=== PATIENT | female | born 1990 | race African-American/Black ===

== ENCOUNTER 2018-03-13 18:45 | Emergency (ER) | payer OTHER ==
[~2018-03-13] VITALS: Ht 167.6 cm; Wt 13.1 kg
[2018-03-13] MEDS ORDERED: BAYE1TAB5 PO (18:55)
[2018-03-13 21:13] VITALS: BP 141/93
[2018-03-13] MEDS ORDERED: ASPIRIN 81 MG CHEW TABLET PO ONE (21:15)
[2018-03-13] MEDS ORDERED: GI COCKTAIL 50ML BTL(HYOSCYAMINE/MAALOX/LIDOCAINE VISCOUS)(1:3:1) PO ONE (21:15)
[2018-03-13 21:23] LABS: BASO # 0.1 10^3/uL (0.0-0.2); BASO % 0.5 % (0.0-1.0); EOS # 0.3 10^3/uL (0.0-0.50); HEMATOCRIT 38.8 % (36.0-47.0); HEMOGLOBIN 12.8 g/dl (12.0-15.5); LYMPH # 3.3 10^3/uL (1.5-4.5); MEAN CORPUSCULAR VOLUME 87.8 fl (80.0-96.0); MONO # 0.7 10^3/uL (0.0-0.8); MONO % 5.5 % (0.0-5.0); NEUTROPHILS # 8.3 10^3/uL (1.8-7.7); NEUTROPHILS % 65.5 % (36.0-66.0); PLATELET COUNT, AUTOMATED 316 10^3/uL (150-450); RED BLOOD COUNT 4.42 10^6/uL (4.00-5.40); WHITE BLOOD COUNT 12.8 10^3/uL (4.0-10.0)
[2018-03-13 21:48] LABS: BLOOD UREA NITROGEN 18 MG/DL (7-18); CALCIUM LEVEL 8.7 MG/DL (8.5-10.1); CARBON DIOXIDE LEVEL 25 MEQ/L (21-32); CHLORIDE LEVEL 105 MEQ/L (98-107); CPK CREATINE PHOSPHOKINASE 121 U/L (26-192); CREATININE FOR GFR 0.82 MG/DL (0.55-1.30); GLOMERULAR FILTRATION RATE > 60.0 (>60); GLUCOSE, FASTING 87 MG/DL (70-100); MB/CK RELATIVE INDEX 1.16 (< OR =4); SODIUM LEVEL 137 MEQ/L (136-145); TROPONIN I < 0.02 NG/ML (< 0.10)
--- NOTE | 2018-03-14 09:17 | REP ---
Clinical: Acute chest pain . Comparison: None . Technique: PA and lateral. Findings: The mediastinum and cardiac silhouette are normal. The lung lau are clear and without acute consolidation, effusion, or pneumothorax. The skeletal structures are intact and normal. Impression: 1. No acute cardiopulmonary process. Electronically Signed by Herminio Salvador MD 03/14/2018 09:07 A
--- NOTE | 2018-03-14 09:30 | ECGEPIP ---
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
== END 2018-03-13 22:37 | disposition home or self-care (01) ==
LOC: M ED 18:45
DX: R07.89 Other chest pain (principal)

== ENCOUNTER 2018-07-17 18:36 | Emergency (ER) | payer OTHER ==
[~2018-07-17] VITALS: Ht 170.2 cm; Wt 139.6 kg
[~2018-07-17 18:36] MED LIST: BAYE1TAB5 PO
[2018-07-17 19:25] LABS: BASO # 0.1 10^3/uL (0.0-0.2); BASO % 0.6 % (0.0-1.0); EOS # 0.2 10^3/uL (0.0-0.50); EOS % 1.6 % (0.0-3.0); HEMATOCRIT 41.5 % (36.0-47.0); HEMOGLOBIN 13.8 g/dl (12.0-15.5); LYMPH # 2.3 10^3/uL (1.5-4.5); LYMPH % 21.2 % (24.0-44.0); MEAN CORPUSCULAR HEMOGLOBIN 29.1 pg (27.0-33.0); MEAN CORPUSCULAR HGB CONC 33.3 g/dl (32.0-36.5); MEAN CORPUSCULAR VOLUME 87.6 fl (80.0-96.0); MONO # 0.6 10^3/uL (0.0-0.8); MONO % 5.4 % (0.0-5.0); NEUTROPHILS # 7.7 10^3/uL (1.8-7.7); NEUTROPHILS % 70.8 % (36.0-66.0); PLATELET COUNT, AUTOMATED 326 10^3/uL (150-450); RED BLOOD COUNT 4.74 10^6/uL (4.00-5.40); WHITE BLOOD COUNT 10.9 10^3/uL (4.0-10.0)
--- NOTE | 2018-07-17 19:45 | REP ---
Clinical: Right lower extremity pain and swelling . Technique: Barakat scale and color Doppler evaluation using linear high frequency transducer. Findings: Ultrasound examination of the right lower extremity deep venous structures from the common femoral vein to the popliteal vein demonstrates normal compressibility flow and wave patterns in response to respiration and augmentation. There is no evidence for deep venous thrombosis. Impression: No evidence for deep venous thrombosis. Electronically Signed by Herminio Salvador MD 07/17/2018 07:36 P
[2018-07-17 19:49] LABS: BLOOD UREA NITROGEN 9 MG/DL (7-18); CALCIUM LEVEL 9.2 MG/DL (8.5-10.1); CARBON DIOXIDE LEVEL 27 MEQ/L (21-32); CHLORIDE LEVEL 106 MEQ/L (98-107); GLOMERULAR FILTRATION RATE > 60.0 (>60); GLUCOSE, FASTING 79 MG/DL (70-100); POTASSIUM SERUM 4.1 MEQ/L (3.5-5.1); SODIUM LEVEL 141 MEQ/L (136-145)
[2018-07-17] MEDS ORDERED: ISOVUE-370 76% 100ML VIAL (Q9967) As Ordered ONE (20:01)
[2018-07-17] MEDS ORDERED: NS 1,000 ML IV ONE (20:15)
--- NOTE | 2018-07-17 20:51 | REP ---
Clinical: Acute shortness of breath and elevated D-dimer levels. Technique: Axial contrast enhanced images from the thoracic inlet to the upper abdomen using 100 ml Isovue 370 intravenous contrast material with coronal and sagittal re-formations. Findings: Satisfactory enhancement of the pulmonary vasculature is achieved and no filling defects are identified to suggest pulmonary embolus. Thoracic aorta is normal caliber without aneurysm or dissection. Heart and pericardium are normal. Bilateral lung lau are well aerated and clear without acute pulmonary parenchymal consolidation or atelectasis. No nodule or mass lesion. No pleural effusion/reaction. No pneumothorax. No adenopathy. Impression: No evidence for pulmonary embolus. No acute pleuroparenchymal or mediastinal process. Electronically Signed by Herminio Salvador MD 07/17/2018 08:42 P
[2018-07-17 21:16] VITALS: BP 137/82
== END 2018-07-17 21:20 | disposition home or self-care (01) ==
LOC: M ED 18:36
DX: M79.661 Pain in right lower leg (principal); M79.89 Other specified soft tissue disorders; I10 Essential (primary) hypertension; R01.1 Cardiac murmur, unspecified; Z82.49 Family history of ischemic heart disease and other diseases of the circulatory system
CPT/HCPCS: 36415; 71275; 80048; 85025; 85379; 93971; 96360; 99284; Q9967

== ENCOUNTER 2019-06-16 13:50 | Emergency (ER) | payer OTHER ==
[~2019-06-16] VITALS: Ht 170.2 cm; Wt 132.9 kg
[~2019-06-16 13:50] MED LIST changes: +PENI500T PO
[2019-06-16 15:05] VITALS: BP 141/87
--- NOTE | 2019-06-16 15:49 | REP ---
CHEST, TWO VIEWS: There is no evidence of acute infiltrate. No pleural effusion is seen. The heart is normal in size. The mediastinal silhouette is unremarkable. The visualized osseous structures are intact. IMPRESSION: No acute pulmonary disease. Electronically Signed by Milton Barakat MD 06/16/2019 07:04 P
== END 2019-06-16 15:06 | disposition home or self-care (01) ==
LOC: M ED 13:50
DX: T52.4X1A Toxic effect of ketones, accidental (unintentional), initial encounter (principal); T45.91XA Poisoning by unspecified primarily systemic and hematological agent, accidental (unintentional), initial encounter; R06.02 Shortness of breath; R11.0 Nausea; R42 Dizziness and giddiness; R51 Headache; Y92.090 Kitchen in other non-institutional residence as the place of occurrence of the external cause; Y93.G1 Activity, food preparation and clean up; Y99.8 Other external cause status

== ENCOUNTER 2019-07-13 05:01 | Emergency (ER) | payer OTHER ==
[~2019-07-13] VITALS: Ht 167.6 cm; Wt 118.2 kg
[2019-07-13 05:52] LABS: BASO # 0.1 10^3/uL (0.0-0.2); BASO % 0.4 % (0.0-1.0); EOS # 0.1 10^3/uL (0.0-0.5); EOS % 1.2 % (0.0-3.0); HEMOGLOBIN 12.9 g/dl (12.0-15.5); LYMPH # 2.7 10^3/uL (1.5-5.0); LYMPH % 23.9 % (24.0-44.0); MEAN CORPUSCULAR HEMOGLOBIN 28.8 pg (27.0-33.0); MEAN CORPUSCULAR HGB CONC 33.1 g/dl (32.0-36.5); MEAN CORPUSCULAR VOLUME 87.1 fl (80.0-96.0); MONO # 0.8 10^3/uL (0.0-0.8); MONO % 6.7 % (0.0-5.0); NEUTROPHILS # 7.7 10^3/uL (1.5-8.5); NEUTROPHILS % 67.5 % (36.0-66.0); PLATELET COUNT, AUTOMATED 307 10^3/uL (150-450); RED BLOOD COUNT 4.48 10^6/uL (4.00-5.40); WHITE BLOOD COUNT 11.4 10^3/uL (4.0-10.0)
[2019-07-13 06:09] LABS: ALBUMIN 3.5 GM/DL (3.2-5.2); ALT/SGPT 17 U/L (12-78); BILIRUBIN,DIRECT 0.1 MG/DL (0.0-0.2); BILIRUBIN,TOTAL 0.5 MG/DL (0.2-1.0); BLOOD UREA NITROGEN 10 MG/DL (7-18); CALCIUM LEVEL 8.8 MG/DL (8.5-10.1); CARBON DIOXIDE LEVEL 28 MEQ/L (21-32); CHLORIDE LEVEL 106 MEQ/L (98-107); CK-MB VALUE MASS < 1.0 NG/ML (<3.6); CPK CREATINE PHOSPHOKINASE 88 U/L (26-192); CREATININE FOR GFR 0.79 MG/DL (0.55-1.30); GLOMERULAR FILTRATION RATE > 60.0 (>60); GLUCOSE, FASTING 87 MG/DL (70-100); MB/CK RELATIVE INDEX 1.14 (< OR =4); NT-PRO BNP 21 PG/ML (<125); POTASSIUM SERUM 3.7 MEQ/L (3.5-5.1); SODIUM LEVEL 140 MEQ/L (136-145); TOTAL PROTEIN 7.3 GM/DL (6.4-8.2); TROPONIN I < 0.02 NG/ML (< 0.10)
[2019-07-13 06:37] LABS: HCG, SERUM QUALITATIVE NEGATIVE (NEGATIVE)
--- NOTE | 2019-07-13 06:48 | REP ---
Clinical: Cough and dyspnea . Comparison: 06/16/2019 . Technique: PA and lateral. Findings: The mediastinum and cardiac silhouette are normal. The lung lau are clear and without acute consolidation, effusion, or pneumothorax. The skeletal structures are intact and normal. Impression: 1. No acute cardiopulmonary process. Electronically Signed by Herminio Salvador MD 07/13/2019 06:39 A
[2019-07-13] MEDS ORDERED: NS 1,000 ML IV ONE (07:00)
[2019-07-13] MEDS ORDERED: ISOVUE-370 76% 100ML VIAL As Ordered ONE (07:04)
[2019-07-13] MEDS ORDERED: FAMOTIDINE 20 MG TAB PO ONE (07:30)
--- NOTE | 2019-07-13 07:42 | REPVR ---
PROCEDURE INFORMATION: Exam: CT Angiography Chest With Contrast Exam date and time: 07/13/2019 6:58 AM Age: 29 years old Clinical indication: Chest pain; Type not specified; Additional info: SOB, elevated d-dimer TECHNIQUE: Imaging protocol: Computed tomographic angiography of the chest with intravenous contrast. 3D rendering: MIP and/or 3D reconstructed images were created by the technologist. Radiation optimization: All CT scans at this facility use at least one of these dose optimization techniques: automated exposure control; mA and/or kV adjustment per patient size (includes targeted exams where dose is matched to clinical indication); or iterative reconstruction. Contrast material: ISO; Contrast volume: 75 ml; Contrast route: AC; COMPARISON: CT ANGIO CHEST 07/17/2018 8:21 PM FINDINGS: Pulmonary arteries: No visualized acute pulmonary embolus for the level of images acquired. Aorta: Limitation with likely motion artifact at the margin of ascending thoracic aorta. Lungs: Slight or vague ground-glass appearance of the lungs bilaterally with rather diffuse non rounded involvement. Pleural space: No pleural effusion. Heart: Right to left ventricular ratio 0.9. Lymph nodes: Unremarkable. No enlarged lymph nodes. Bones/joints: Unremarkable. No acute fracture. Soft tissues: Unremarkable. Other findings: Limitation secondary to patient body habitus. IMPRESSION: 1. No visualized pulmonary embolus for the level of images acquired. 2. Rather diffuse partial ground-glass appearance of pulmonary parenchyma is similar to 2019. Electronically signed by: Ashia Guajardo On 07/13/2019 07:42:02 AM
[2019-07-13] MEDS ORDERED: VENTAER INH (07:47)
[2019-07-13 07:56] VITALS: BP 137/95
--- NOTE | 2019-07-13 08:13 | ECGEPIP ---
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
== END 2019-07-13 08:04 | disposition home or self-care (01) ==
LOC: M ED 05:01 → EDBD 05:01 → M ED 08:04
DX: R06.00 Dyspnea, unspecified (principal); R91.8 Other nonspecific abnormal finding of lung field
CPT/HCPCS: 36415; 71046; 71275; 80048; 80076; 82550; 82553; 83880; 84443; 84484; 84703; 85025; 85379; 93005; 93041; 94760; 96360; 99285; Q9967

== ENCOUNTER → 2019-08-05 | Outpatient (CLI) | payer OTHER ==
[~2019-08-05] MED LIST changes: +VENTAER INH
--- NOTE | 2019-08-11 13:00 | SLEEPCENT ---
DATE OF STUDY: 08/05/2019 ORDERED BY: Dr. Jo Nocturnal polysomnography was performed for evaluation of sleep physiology in this patient with a history of excessive somnolence and nonrestorative sleep. 7 hours and 22 minutes of data were reviewed. There were 396 minutes of sleep identified. Sleep latency was normal at 6 minutes. REM latency was prolonged at 120 minutes. Sleep architecture was fairly good. There were 3 REM cycles noted. Overall sleep efficiency was 91.6%. The patient's electrocardiogram showed a sinus rhythm with an average heart rate of 70 beats per minute. Electroencephalogram (EEG) showed fairly normal waveforms for awake and sleep. There was some EKG bleed through. No focal events were identified. There were 66 respiratory events identified of 10 seconds in duration or greater for an apnea-hypopnea index of 10. The events were primarily obstructive, not exclusive to sleep stage nor body posture. Arousals from respiratory events occurred 5.2 times per hour. No oxygen desaturations below 90% were appreciated. Limb activity was minimal. Limb movement arousal index was 3. IMPRESSION: Obstructive sleep apnea syndrome (G47.33). Apnea-hypopnea index of 10. RECOMMENDATION: The patient should be encouraged to return to the sleep disorder center for pressure therapy. In the interim, alcohol and sedative avoidance should be practiced and caution exercised during the operation of motor vehicles.
== END ==
LOC: M SLEEP 20:00
PROVIDERS: ATTEND Internal Medicine Pulmonary Disease
DX: G47.30 Sleep apnea, unspecified (principal)

== ENCOUNTER → 2019-10-08 | Outpatient (CLI) | payer OTHER ==
[~2019-10-08] MED LIST changes: +OMEP40CA97 PO; +ONDA-83; +PANT40TA29; +PEPC40TA12 PO; +SUCR1TAB56
--- NOTE | 2019-10-31 07:24 | SLEEPCENT ---
DATE: 10/08/2019 ORDERED BY: Dr. Jo Nocturnal polysomnography was performed for the titration of pressure therapy in this patient with obstructive sleep apnea syndrome, apnea-hypopnea index of 10. For testing, a ResMed AirFit F20 full-face mask of small size was used. There was 4 cm of water pressure applied to the circuit, and the lights were extinguished. There was 7 hours and 52 minutes of data reviewed. There was 400.5 minutes of sleep identified. Sleep latency was normal at 7.5 minutes. REM latency was mildly delayed at 123 minutes. Sleep architecture was good with four REM cycles. Overall sleep efficiency was 86.7%. The electrocardiogram showed a sinus rhythm with an average heart rate of 60 beats per minute . EEG showed normal waveforms for wake and sleep. Respiratory events were fully palliated with CPAP at a pressure of +12. Remaining measures of sleep physiology were normal. IMPRESSION: Obstructive sleep apnea syndrome (G47.33). RECOMMENDATION: Nightly use of pressure therapy, 12 cm of water. MTDD
== END ==
LOC: M SLEEP 20:00
PROVIDERS: ATTEND Internal Medicine Pulmonary Disease
DX: G47.33 Obstructive sleep apnea (adult) (pediatric) (principal)

== ENCOUNTER 2019-11-14 16:38 | Emergency (ER) | payer OTHER ==
[~2019-11-14] VITALS: Ht 170.2 cm; Wt 129.2 kg
[2019-11-14 16:38] VITALS: BP 149/89
[~2019-11-14 16:38] MED LIST changes: -OMEP40CA97 PO; -ONDA-83; -PANT40TA29; -PEPC40TA12 PO; -SUCR1TAB56
[2019-11-14 17:30] LABS: BASO # 0.1 10^3/uL (0.0-0.2); BASO % 0.5 % (0.0-1.0); EOS # 0.2 10^3/uL (0.0-0.5); EOS % 1.6 % (0.0-3.0); HEMATOCRIT 35.3 % (36.0-47.0); HEMOGLOBIN 11.7 g/dl (12.0-15.5); LYMPH # 2.2 10^3/uL (1.5-5.0); LYMPH % 20.2 % (24.0-44.0); MEAN CORPUSCULAR HEMOGLOBIN 28.9 pg (27.0-33.0); MEAN CORPUSCULAR HGB CONC 33.1 g/dl (32.0-36.5); MEAN CORPUSCULAR VOLUME 87.2 fl (80.0-96.0); MONO # 0.7 10^3/uL (0.0-0.8); MONO % 6.3 % (0.0-5.0); NEUTROPHILS # 7.8 10^3/uL (1.5-8.5); NEUTROPHILS % 70.9 % (36.0-66.0); PLATELET COUNT, AUTOMATED 281 10^3/uL (150-450); RED BLOOD COUNT 4.05 10^6/uL (4.00-5.40)
[2019-11-14 18:01] LABS: BLOOD UREA NITROGEN 9 MG/DL (7-18); CALCIUM LEVEL 9.2 MG/DL (8.5-10.1); CARBON DIOXIDE LEVEL 27 MEQ/L (21-32); CHLORIDE LEVEL 107 MEQ/L (98-107); CK-MB VALUE MASS < 1.0 NG/ML (<3.6); CPK CREATINE PHOSPHOKINASE 85 U/L (26-192); FREE THYROXINE INDEX 3.1 % (1.3-4.8); GLOMERULAR FILTRATION RATE > 60.0 (>60); GLUCOSE, FASTING 108 MG/DL (70-100); HCG, SERUM QUANTITATIVE < 1.0 MIU/ML; MB/CK RELATIVE INDEX 1.18 (< OR =4); SODIUM LEVEL 137 MEQ/L (136-145); T UPTAKE 37 % (30-39); THYROXINE (T4) 8.4 UG/DL (4.5-12.0); TROPONIN I < 0.02 NG/ML (< 0.10)
--- NOTE | 2019-11-14 18:50 | REPVR ---
PROCEDURE INFORMATION: Exam: XR Chest, 2 Views Exam date and time: 11/14/2019 6:42 PM Age: 29 years old Clinical indication: Chest pain; Additional info: Left sided chest pain TECHNIQUE: Imaging protocol: XR of the chest Views: 2 views. COMPARISON: CR Chest, 2 view PA, Lat 07/13/2019 5:20 AM FINDINGS: Lungs: Degree of inflation of the lungs is normal. No evidence of pulmonary edema. No focal airspace process. No concerning parenchymal lung mass. Pleural space: No pleural effusion or pneumothorax. Heart/Mediastinum: Cardiac silhouette appears normal. No mediastinal adenopathy or hilar mass. Bones/joints: Osseous structures show no acute or concerning abnormality. IMPRESSION: No active or focal cardiopulmonary process. Electronically signed by: Benjamin Sam On 11/14/2019 18:50:06 PM
[2019-11-14] MEDS ORDERED: NS 1,000 ML IV ONE (19:00)
[2019-11-14] MEDS ORDERED: ISOVUE-370 76% 100ML VIAL As Ordered ONE (19:05)
--- NOTE | 2019-11-14 20:00 | REPVR ---
PROCEDURE INFORMATION: Exam: CT Angiography Chest With Contrast Exam date and time: 11/14/2019 7:46 PM Age: 29 years old Clinical indication: Chest pain; Additional info: Left sided chest pain, elevated d-dimer TECHNIQUE: Imaging protocol: Computed tomographic angiography of the chest with intravenous contrast. 3D rendering (Not supervised by radiologist): MIP and/or 3D reconstructed images were created by the technologist. Radiation optimization: All CT scans at this facility use at least one of these dose optimization techniques: automated exposure control; mA and/or kV adjustment per patient size (includes targeted exams where dose is matched to clinical indication); or iterative reconstruction. Contrast material: ISOVUE 370; Contrast volume: 75 ml; Contrast route: INTRAVENOUS (IV); COMPARISON: CT ANGIO CHEST 07/13/2019 7:08 AM FINDINGS: Pulmonary arteries: No focal pulmonary artery filling defect to suggest acute pulmonary embolus. Aorta: No thoracic aortic aneurysm or dissection. Lungs: Pulmonary vascular/interstitial pattern does not suggest active pulmonary edema. No suspicious lung mass or air space process. No central endobronchial lesion. Pleural space: No pleural effusion or pneumothorax. Heart: No overt cardiac enlargement or abnormal volume of pericardial fluid. Mediastinal space: Residual thymic tissue is present in the anterior mediastinum. Lymph nodes: No enlarged mediastinal lymph nodes. Bones/joints: Bony structures show no acute fracture or destructive process. Soft tissues: No asymmetric abnormality of the extrathoracic soft tissues. IMPRESSION: 1. No evidence of acute pulmonary embolus. 2. No other acute or concerning focal intrathoracic abnormality. Electronically signed by: Benjamin Sam On 11/14/2019 20:00:17 PM
--- NOTE | 2019-11-15 09:18 | ECGEPIP ---
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
[2019-12-23] MEDS ORDERED: ONDA-83 (13:33)
[2019-12-23] MEDS ORDERED: OMEP40CA97 PO (13:34)
[2019-12-23] MEDS ORDERED: SUCR1TAB56 (13:34)
[2019-12-23] MEDS ORDERED: PANT40TA29 (13:34)
== END 2019-11-14 19:57 | disposition home or self-care (01) ==
LOC: M ED 16:38
DX: R07.9 Chest pain, unspecified (principal); R79.89 Other specified abnormal findings of blood chemistry; Z53.9 Procedure and treatment not carried out, unspecified reason; Z79.51 Long term (current) use of inhaled steroids
CPT/HCPCS: 36415; 71046; 71275; 80048; 82550; 82553; 84436; 84443; 84479; 84484; 84702; 85025; 85379; 85730; 93005; 99284; Q9967

== ENCOUNTER 2019-12-20 15:09 | Emergency (ER) | payer OTHER ==
[~2019-12-20] VITALS: Ht 170.2 cm; Wt 133.6 kg
[2019-12-20] MEDS ORDERED: PEPC40TA12 PO (15:26)
[2019-12-20 16:12] LABS: BASO # 0.1 10^3/uL (0.0-0.2); BASO % 0.6 % (0.0-1.0); EOS # 0.2 10^3/uL (0.0-0.5); EOS % 1.3 % (0.0-3.0); HEMATOCRIT 38.4 % (36.0-47.0); HEMOGLOBIN 12.3 g/dl (12.0-15.5); LYMPH # 2.1 10^3/uL (1.5-5.0); LYMPH % 18.7 % (24.0-44.0); MEAN CORPUSCULAR HEMOGLOBIN 28.4 pg (27.0-33.0); MEAN CORPUSCULAR VOLUME 88.7 fl (80.0-96.0); MONO # 0.7 10^3/uL (0.0-0.8); MONO % 6.3 % (0.0-5.0); NEUTROPHILS # 8.1 10^3/uL (1.5-8.5); NEUTROPHILS % 72.5 % (36.0-66.0); PLATELET COUNT, AUTOMATED 282 10^3/uL (150-450); RED BLOOD COUNT 4.33 10^6/uL (4.00-5.40); WHITE BLOOD COUNT 11.1 10^3/uL (4.0-10.0)
[2019-12-20 16:59] VITALS: BP 148/79
--- NOTE | 2019-12-23 07:17 | ECGEPIP ---
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
[2019-12-23] MEDS ORDERED: ONDA-83 (13:33)
[2019-12-23] MEDS ORDERED: OMEP40CA97 PO (13:34)
[2019-12-23] MEDS ORDERED: SUCR1TAB56 (13:34)
[2019-12-23] MEDS ORDERED: PANT40TA29 (13:34)
== END 2019-12-20 17:01 | disposition home or self-care (01) ==
LOC: M ED 15:09
DX: R55 Syncope and collapse (principal); K21.9 Gastro-esophageal reflux disease without esophagitis; E66.9 Obesity, unspecified; Z79.899 Other long term (current) drug therapy

== ENCOUNTER 2020-01-16 11:07 | Day surgery (SDC) | payer OTHER ==
[~2020-01-16] VITALS: Ht 170.2 cm; Wt 128.4 kg
[~2020-01-16 11:07] MED LIST changes: +NS 1,000 ML IV ONE; +OMEP40CA97 PO; +ONDA-83; +PANT40TA29; +PEPC40TA12 PO; +SUCR1TAB56; +fentaNYL 100 MCG/2 ML INJECTION (J3010) As Ordered ONE; +propofoL 200 MG/20 ML VIAL As Ordered ONE
[2020-01-16] MEDS ORDERED: LIDOCAINE 2% 100MG/5ML SDV (FOR ANES.) As Ordered ONE (12:09)
--- NOTE | 2020-01-16 12:41 | ROOR ---
Patient Name: Karma Singer Procedure Date: 01/16/2020 12:26 PM Date of : 1990 Age: 29 Room: [facility] Gender: Female Note Status: Finalized Procedure: Upper Endoscopy + Biopsies Indications: Heartburn, Exclusion of Domingo's esophagus Providers: Satish Nielsen MD Referring MD: ALEE VICKERS MD Requesting Provider: Medicines: Monitored Anesthesia Care Complications: No immediate complications. Procedure: Pre-Anesthesia Assessment: - The heart rate, respiratory rate, oxygen saturations, blood pressure, adequacy of pulmonary ventilation, and response to care were monitored throughout the procedure. The Endoscope was introduced through the mouth, and advanced to the second part of duodenum. The upper GI endoscopy was accomplished without difficulty. The patient tolerated the procedure well. Findings: The Z-line was irregular and was found 40 cm from the incisors. Multiple biopsies were obtained with cold forceps for evaluation to rule out Domingo's Esophagus randomly at the gastroesophageal junction. No other significant abnormalities were identified in a careful examination of the stomach. The exam of the duodenum was otherwise normal. Impression: - Z-line irregular, 40 cm from the incisors. - Multiple biopsies were obtained at the gastroesophageal junction. - The examination was otherwise normal. Recommendation: - Patient has a contact number available for emergencies. The signs and symptoms of potential delayed complications were discussed with the patient. Return to normal activities tomorrow. Written discharge instructions were provided to the patient. - High fiber diet. - Discharge patient to home. - Continue present medications. - Follow an antireflux regimen. - Await pathology results. - Telephone GI clinic for pathology results in 1 week. - Return to referring physician. - The findings and recommendations were discussed with the patient. Procedure Code(s): --- Professional --- 46909, Esophagogastroduodenoscopy, flexible, transoral; with biopsy, single or multiple Diagnosis Code(s): --- Professional --- K22.8, Other specified diseases of esophagus R12, Heartburn CPT copyright 2019 [employer]. All rights reserved. The codes documented in this report are preliminary and upon manager council review may be revised to meet current compliance requirements. Satish Nielsen MD Satish Nielsen MD 01/16/2020 12:41:23 PM Electronically signed by Satish Nielsen MD Number of Addenda: 0 Note Initiated On: 01/16/2020 12:26 PM Estimated Blood Loss: Estimated blood loss: none.
[2020-01-16] MEDS ORDERED: propofoL 200 MG/20 ML VIAL As Ordered ONE (12:59)
[2020-01-16 13:06] VITALS: BP 145/92
== END 2020-01-16 13:08 | disposition home or self-care (01) ==
LOC: M OPP 11:07
PROVIDERS: ATTEND Internal Medicine Gastroenterology
DX: K22.8 Other specified diseases of esophagus (principal); R12 Heartburn; K21.9 Gastro-esophageal reflux disease without esophagitis; Z79.899 Other long term (current) drug therapy
CPT/HCPCS: 43239; 88305; J3010

== ENCOUNTER 2020-01-23 16:22 | Emergency (ER) | payer OTHER ==
[~2020-01-23] VITALS: Ht 170.2 cm; Wt 129.0 kg
[~2020-01-23 16:22] MED LIST changes: -NS 1,000 ML IV ONE; -ONDA-83; +ONDA-83 PO; -fentaNYL 100 MCG/2 ML INJECTION (J3010) As Ordered ONE; -propofoL 200 MG/20 ML VIAL As Ordered ONE
[2020-01-23] MEDS ORDERED: diphenhydrAMINE 50MG/ML VIAL (J1200) IV STA (17:42)
[2020-01-23] MEDS ORDERED: METOCLOPRAMIDE INJ 10MG/2ML VIAL (J2765 PER 1) IV ONE (17:45)
[2020-01-23] MEDS ORDERED: NS 1,000 ML IV ONE (17:45)
[2020-01-23] MEDS ORDERED: KETOROLAC 30 MG/ML 1ML VIAL IV ONE (17:45)
[2020-01-23 18:24] LABS: BASO # 0.1 10^3/uL (0.0-0.2); BASO % 0.5 % (0.0-1.0); EOS # 0.1 10^3/uL (0.0-0.5); EOS % 0.6 % (0.0-3.0); HEMATOCRIT 39.3 % (36.0-47.0); HEMOGLOBIN 12.9 g/dl (12.0-15.5); LYMPH # 1.5 10^3/uL (1.5-5.0); MEAN CORPUSCULAR HEMOGLOBIN 28.7 pg (27.0-33.0); MEAN CORPUSCULAR HGB CONC 32.8 g/dl (32.0-36.5); MEAN CORPUSCULAR VOLUME 87.5 fl (80.0-96.0); MONO # 0.7 10^3/uL (0.0-0.8); MONO % 5.2 % (0.0-5.0); NEUTROPHILS # 10.8 10^3/uL (1.5-8.5); NEUTROPHILS % 82.3 % (36.0-66.0); PLATELET COUNT, AUTOMATED 312 10^3/uL (150-450); RED BLOOD COUNT 4.49 10^6/uL (4.00-5.40); WHITE BLOOD COUNT 13.1 10^3/uL (4.0-10.0)
[2020-01-23 18:44] LABS: ALBUMIN 3.8 GM/DL (3.2-5.2); ALT/SGPT 18 U/L (12-78); BILIRUBIN,DIRECT 0.1 MG/DL (0.0-0.2); BILIRUBIN,TOTAL 0.5 MG/DL (0.2-1.0); BLOOD UREA NITROGEN 13 MG/DL (7-18); CALCIUM LEVEL 9.3 MG/DL (8.5-10.1); CARBON DIOXIDE LEVEL 27 MEQ/L (21-32); CHLORIDE LEVEL 105 MEQ/L (98-107); GLOMERULAR FILTRATION RATE > 60.0 (>60); GLUCOSE, FASTING 92 MG/DL (70-100); LIPASE 90 U/L (73-393); MAGNESIUM LEVEL 1.9 MG/DL (1.8-2.4); POTASSIUM SERUM 3.8 MEQ/L (3.5-5.1); SODIUM LEVEL 138 MEQ/L (136-145); TOTAL PROTEIN 7.6 GM/DL (6.4-8.2)
[2020-01-23 18:49] LABS: HCG, SERUM QUALITATIVE NEGATIVE (NEGATIVE)
[2020-01-23 18:56] VITALS: BP 140/96
== END 2020-01-23 19:45 | disposition home or self-care (01) ==
LOC: M ED 16:22
DX: R51.9 Headache, unspecified (principal); D72.829 Elevated white blood cell count, unspecified; R42 Dizziness and giddiness; R11.0 Nausea; J45.909 Unspecified asthma, uncomplicated; K21.9 Gastro-esophageal reflux disease without esophagitis; Z79.51 Long term (current) use of inhaled steroids
CPT/HCPCS: 80048; 80076; 83690; 83735; 84703; 85025; 96361; 96374; 96375; 99284; J1200; J1885; J2765

== ENCOUNTER 2020-01-28 13:49 | Emergency (ER) | payer OTHER ==
[~2020-01-28] VITALS: Ht 170.2 cm; Wt 127.3 kg
[2020-01-28] MEDS ORDERED: SUCR1TAB56 PO (14:22)
--- NOTE | 2020-01-28 15:02 | ECGEPIP ---
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
[2020-01-28 15:07] LABS: BASO # 0.1 10^3/uL (0.0-0.2); BASO % 0.5 % (0.0-1.0); EOS # 0.1 10^3/uL (0.0-0.5); EOS % 0.5 % (0.0-3.0); HEMATOCRIT 39.2 % (36.0-47.0); HEMOGLOBIN 12.6 g/dl (12.0-15.5); LYMPH # 1.4 10^3/uL (1.5-5.0); MEAN CORPUSCULAR HGB CONC 32.1 g/dl (32.0-36.5); MEAN CORPUSCULAR VOLUME 87.1 fl (80.0-96.0); MONO # 0.5 10^3/uL (0.0-0.8); MONO % 5.3 % (0.0-5.0); NEUTROPHILS # 8.1 10^3/uL (1.5-8.5); NEUTROPHILS % 79.3 % (36.0-66.0); PLATELET COUNT, AUTOMATED 344 10^3/uL (150-450); WHITE BLOOD COUNT 10.2 10^3/uL (4.0-10.0)
[2020-01-28] MEDS ORDERED: LORazepam 2 MG TAB PO PRN (15:15)
[2020-01-28 15:31] LABS: HCG, SERUM QUALITATIVE NEGATIVE (NEGATIVE)
[2020-01-28 15:39] LABS: BLOOD UREA NITROGEN 8 MG/DL (7-18); CALCIUM LEVEL 9.1 MG/DL (8.5-10.1); CARBON DIOXIDE LEVEL 27 MEQ/L (21-32); CHLORIDE LEVEL 107 MEQ/L (98-107); CK-MB VALUE MASS < 1.0 NG/ML (<3.6); CPK CREATINE PHOSPHOKINASE 93 U/L (26-192); CREATININE FOR GFR 0.86 MG/DL (0.55-1.30); FREE T4 1.16 NG/DL (0.76-1.46); GLOMERULAR FILTRATION RATE > 60.0 (>60); GLUCOSE, FASTING 87 MG/DL (70-100); LIPASE 73 U/L (73-393); MB/CK RELATIVE INDEX 1.08 (< OR =4); PHOSPHORUS LEVEL 3.1 MG/DL (2.5-4.9); POTASSIUM SERUM 4.1 MEQ/L (3.5-5.1); SODIUM LEVEL 139 MEQ/L (136-145); TROPONIN I < 0.02 NG/ML (< 0.10)
--- NOTE | 2020-01-28 15:55 | REP ---
INDICATION: Pre-syncope episode. COMPARISON: None. TECHNIQUE: CT BRAIN PERFORMED IN THE AXIAL PLANE. CORONAL RECONSTRUCTION IMAGES ARE PERFORMED. FINDINGS: THE VENTRICLES ARE NORMAL IN SIZE AND POSITION. THERE IS NO MIDLINE SHIFT OR MASS EFFECT. BARAKAT-WHITE DIFFERENTIATION IS WELL MAINTAINED. THERE IS NO ACUTE INTRACRANIAL HEMORRHAGE OR EXTRA-AXIAL FLUID COLLECTION. BONE WINDOW EXAMINATION IS UNREMARKABLE. VISUALIZED MASTOID AIR CELLS AND PARANASAL SINUSES ARE CLEAR. IMPRESSION: NEGATIVE NONCONTRAST CT BRAIN. <Electronically signed by Milton Barakat > 01/28/20 [id number]
--- NOTE | 2020-01-28 15:56 | REP ---
INDICATION: Syncope/near-syncope. COMPARISON: 11/14/2019. TECHNIQUE: SINGLE PORTABLE AP VIEW OF THE CHEST WAS PERFORMED. FINDINGS: THERE IS NO ACUTE INFILTRATE OR PULMONARY EDEMA. LUNGS ARE CLEAR. HEART IS NOT SIGNIFICANTLY ENLARGED. MEDIASTINAL SILHOUETTE IS UNREMARKABLE. THE VISUALIZED OSSEOUS STRUCTURES ARE INTACT. IMPRESSION: NO ACUTE PULMONARY DISEASE. <Electronically signed by Milton Barakat > 01/28/20 [id number]
[2020-01-28 17:01] VITALS: BP 169/75
[2020-01-28] MEDS ORDERED: THIAMINE 100 MG TAB PO SCH (21:00)
[2020-01-29] MEDS ORDERED: FOLIC ACID 1 MG TAB PO SCH (09:00)
[2020-01-29] MEDS ORDERED: MULTIVITAMINS/MINERALS THERAP 1 TAB PO SCH (09:00)
== END 2020-01-28 17:03 | disposition home or self-care (01) ==
LOC: M ED 13:49 → EDBD 13:49 → M ED 17:03
DX: G43.109 Migraine with aura, not intractable, without status migrainosus (principal); R55 Syncope and collapse; R01.1 Cardiac murmur, unspecified; K21.9 Gastro-esophageal reflux disease without esophagitis; J45.909 Unspecified asthma, uncomplicated; G47.33 Obstructive sleep apnea (adult) (pediatric); Z79.51 Long term (current) use of inhaled steroids; Z79.899 Other long term (current) drug therapy

== ENCOUNTER 2020-03-13 10:46 | Emergency (ER) | payer OTHER ==
[~2020-03-13] VITALS: Ht 170.2 cm; Wt 127.9 kg
[~2020-03-13 10:46] MED LIST changes: +SUCR1TAB56 PO
[2020-03-13] MEDS ORDERED: PEPC1TAB5 (11:08)
[2020-03-13] MEDS ORDERED: NS 1,000 ML IV ONE (11:45)
--- NOTE | 2020-03-13 11:50 | REP ---
INDICATION: Abdominal Pain. COMPARISON: Comparison chest x-ray January 28, 2020.. TECHNIQUE: Four views. Acute abdominal series includes upright abdomen. FINDINGS: Upright chest radiograph is unremarkable. There is no evidence of infiltrate or free subdiaphragmatic air. Heart size is normal. Pulmonary vasculature is not increased. Pleural angles are sharp. Supine and erect views of the abdomen demonstrate a normal bowel gas pattern. The psoas margins and the flank stripes are intact. There is no evidence of mass, organomegaly, or pathologic calcification. IMPRESSION: Negative acute abdominal series. <Electronically signed by Shan Vo > 03/13/20 [id number]
[2020-03-13 12:11] LABS: BASO # 0.1 10^3/uL (0.0-0.2); BASO % 0.7 % (0.0-1.0); EOS # 0.1 10^3/uL (0.0-0.5); EOS % 0.8 % (0.0-3.0); HEMATOCRIT 40.6 % (36.0-47.0); HEMOGLOBIN 13.3 g/dl (12.0-15.5); LYMPH # 1.6 10^3/uL (1.5-5.0); MEAN CORPUSCULAR HEMOGLOBIN 29.4 pg (27.0-33.0); MEAN CORPUSCULAR HGB CONC 32.8 g/dl (32.0-36.5); MEAN CORPUSCULAR VOLUME 89.6 fl (80.0-96.0); MONO # 0.8 10^3/uL (0.0-0.8); MONO % 6.7 % (0.0-5.0); NEUTROPHILS # 9.7 10^3/uL (1.5-8.5); NEUTROPHILS % 78.5 % (36.0-66.0); PLATELET COUNT, AUTOMATED 279 10^3/uL (150-450); RED BLOOD COUNT 4.53 10^6/uL (4.00-5.40); WHITE BLOOD COUNT 12.3 10^3/uL (4.0-10.0)
[2020-03-13] MEDS: PANTOPRAZOLE 40MG VIAL (C9113 PER 1) IV ONE ×2 (12:15→12:22)
[2020-03-13 12:46] LABS: ALBUMIN 3.8 GM/DL (3.2-5.2); ALT/SGPT 20 U/L (12-78); BILIRUBIN,DIRECT 0.2 MG/DL (0.0-0.2); BILIRUBIN,TOTAL 1.1 MG/DL (0.2-1.0); BLOOD UREA NITROGEN 11 MG/DL (7-18); CALCIUM LEVEL 9.5 MG/DL (8.5-10.1); CARBON DIOXIDE LEVEL 29 MEQ/L (21-32); CHLORIDE LEVEL 105 MEQ/L (98-107); CK-MB VALUE MASS < 1.0 NG/ML (<3.6); CPK CREATINE PHOSPHOKINASE 85 U/L (26-192); CREATININE FOR GFR 0.82 MG/DL (0.55-1.30); GLOMERULAR FILTRATION RATE > 60.0 (>60); GLUCOSE, FASTING 82 MG/DL (70-100); LIPASE 91 U/L (73-393); MB/CK RELATIVE INDEX 1.18 (< OR =4); POTASSIUM SERUM 4.1 MEQ/L (3.5-5.1); SODIUM LEVEL 138 MEQ/L (136-145); TOTAL PROTEIN 7.7 GM/DL (6.4-8.2); TROPONIN I < 0.02 NG/ML (< 0.10)
--- NOTE | 2020-03-13 12:46 | REP ---
INDICATION: epigastric abd pain. COMPARISON: Chest CT November 14, 2019.. TECHNIQUE: Transabdominal right upper quadrant scanning FINDINGS: Scanning through the right upper quadrant of the abdomen demonstrates a normal sized, thin-walled gallbladder without evidence of stone or polyp. Common bile duct is normal measuring 0.4 cm in greatest diameter. No focal liver lesion is seen. Liver size is normal. No pancreatic abnormality is observed. No right renal abnormality is seen. There is no evidence of ascites. The right kidney measures 12.0 x 4.8 x 4.9 cm. IMPRESSION: Negative right upper quadrant sonography. <Electronically signed by Shan Vo > 03/13/20 [id number]
[2020-03-13] MEDS ORDERED: ISOVUE-370 76% 100ML VIAL As Ordered ONE (13:06)
--- NOTE | 2020-03-13 13:45 | REP ---
INDICATION: epigastric pain, bloating, diarrhea. COMPARISON: None. TECHNIQUE: Helical scanning was acquired and 4 mm axial images are re-formatted. Coronal and sagittal MPR images were generated and reviewed. The contrast enhancement dose is 100 mL of intravenous Isovue 370. FINDINGS: Preliminary digital co founder radiograph is unremarkable. The lung bases are clear on axial CT images. The liver and the spleen are normal in size homogeneous in texture. No abnormality is noted in the gallbladder or the pancreas. Normal adrenal glands are noted bilaterally. The kidneys enhance symmetrically and are morphologically intact. Small and large intestinal bowel loops are normal in the upper abdomen. A normal appendix is visible medial to the cecum. No mesenteric mass or adenopathy is seen. No retroperitoneal mass is seen. Pelvic images demonstrate no evidence of uterine or ovarian lesion. No free fluid is seen. Urinary bladder is unremarkable. No bony destructive lesion is seen. The IMPRESSION: Negative CT study abdomen and pelvis. No acute abnormality. <Electronically signed by Shan Vo > 03/13/20 [id number]
--- NOTE | 2020-03-13 13:48 | REP ---
INDICATION: epigastric pain, bloating, diarrhea. COMPARISON: Comparison CT study of the chest November 14, 2019.. TECHNIQUE: Contrast dose: 100 ML of Isovue [address] technique: Helical scanning is acquired and overlapping 1.5 mm and contiguous 3 mm axial images are reformatted. In addition, maximum intensity projection and multiplanar re-formation images are generated in sagittal and coronal imaging projections. FINDINGS: There is good opacification in the pulmonary arterial tree. There is no evidence of vessel cut off or filling defect to suggest pulmonary embolus. Homogeneous opacity is seen in the thoracic aorta. There is no evidence of aneurysm or dissection. Lung window settings demonstrate show no evidence of infiltrate of, mass, or significant pulmonary nodule. No pleural or pericardial effusion is seen. No hilar or mediastinal mass or adenopathy is observed. In the upper abdomen, there is no significant abnormality. IMPRESSION: No CT evidence of pulmonary embolus. Negative CT pulmonary angiogram. <Electronically signed by Shan Vo > 03/13/20 [id number]
[2020-03-13] MEDS ORDERED: GI COCKTAIL 50ML BTL(HYOSCYAMINE/MAALOX/LIDOCAINE VISCOUS)(1:3:1) PO ONE (14:00)
[2020-03-13] MEDS ORDERED: CARA1TAB6 PO (15:04)
[2020-03-13 15:19] VITALS: BP 151/88
--- NOTE | 2020-03-14 14:39 | ECGEPIP ---
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
== END 2020-03-13 15:21 | disposition home or self-care (01) ==
LOC: M ED 10:46
DX: K29.70 Gastritis, unspecified, without bleeding (principal); R10.13 Epigastric pain; K21.9 Gastro-esophageal reflux disease without esophagitis; J45.909 Unspecified asthma, uncomplicated; G47.33 Obstructive sleep apnea (adult) (pediatric); Z79.899 Other long term (current) drug therapy; Z79.51 Long term (current) use of inhaled steroids
CPT/HCPCS: 36415; 71275; 74021; 74177; 76705; 80047; 80048; 80076; 81001; 82550; 82553; 83690; 84484; 84702; 85025; 93005; 99284; Q9967

== ENCOUNTER 2020-04-18 12:22 | Emergency (ER) | payer OTHER ==
[~2020-04-18] VITALS: Ht 170.2 cm; Wt 125.8 kg
[~2020-04-18 12:22] MED LIST changes: +CARA1TAB6 PO; +PEPC1TAB5
--- NOTE | 2020-04-18 15:29 | REP ---
INDICATION: RIGHT LEG PAIN WITH CHEST PAIN, R/O DVT COMPARISON: None. TECHNIQUE: Barakat scale and color Doppler evaluation right lower extremity using linear high frequency transducer. FINDINGS: Ultrasound examination of the right lower extremity deep venous structures from the common femoral vein to the popliteal vein demonstrates normal compressibility flow and wave patterns in response to respiration and augmentation. There is no evidence for deep venous thrombosis. IMPRESSION: No evidence for deep venous thrombosis. <Electronically signed by Herminio Salvador > 04/18/20 [id number]
[2020-04-18 15:44] LABS: BASO # 0.1 10^3/uL (0.0-0.2); BASO % 0.5 % (0.0-1.0); EOS # 0.1 10^3/uL (0.0-0.5); EOS % 0.8 % (0.0-3.0); HEMATOCRIT 41.6 % (36.0-47.0); HEMOGLOBIN 13.5 g/dl (12.0-15.5); LYMPH # 1.7 10^3/uL (1.5-5.0); LYMPH % 14.2 % (24.0-44.0); MEAN CORPUSCULAR HGB CONC 32.5 g/dl (32.0-36.5); MEAN CORPUSCULAR VOLUME 89.5 fl (80.0-96.0); MONO # 0.5 10^3/uL (0.0-0.8); MONO % 4.3 % (2.0-8.0); NEUTROPHILS # 9.4 10^3/uL (1.5-8.5); NEUTROPHILS % 79.9 % (36.0-66.0); PLATELET COUNT, AUTOMATED 323 10^3/uL (150-450); RED BLOOD COUNT 4.65 10^6/uL (4.00-5.40); WHITE BLOOD COUNT 11.7 10^3/uL (4.0-10.0)
--- NOTE | 2020-04-18 15:52 | REP ---
INDICATION: CP SINCE YESTERDAY, HX OF L ATRIAL ENLARGEMENT COMPARISON: 01/28/2020 TECHNIQUE: PA and lateral. FINDINGS: The mediastinum and cardiac silhouette are normal. The lung lau are clear and without acute consolidation, effusion, or pneumothorax. The skeletal structures are intact and normal. IMPRESSION: No acute cardiopulmonary process. <Electronically signed by Herminio Salvador > 04/18/20 1544
[2020-04-18 16:09] LABS: ALBUMIN 3.9 GM/DL (3.2-5.2); ALT/SGPT 24 U/L (12-78); BILIRUBIN,TOTAL 0.4 MG/DL (0.2-1.0); BLOOD UREA NITROGEN 15 MG/DL (7-18); CALCIUM LEVEL 9.3 MG/DL (8.5-10.1); CARBON DIOXIDE LEVEL 25 MEQ/L (21-32); CHLORIDE LEVEL 106 MEQ/L (98-107); CK-MB VALUE MASS < 1.0 NG/ML (<3.6); CPK CREATINE PHOSPHOKINASE 120 U/L (26-192); CREATININE FOR GFR 0.84 MG/DL (0.55-1.30); GLOMERULAR FILTRATION RATE > 60.0 (>60); GLUCOSE, FASTING 85 MG/DL (70-100); MB/CK RELATIVE INDEX 0.83 (< OR =4); POTASSIUM SERUM 4.3 MEQ/L (3.5-5.1); SODIUM LEVEL 137 MEQ/L (136-145); TOTAL PROTEIN 7.7 GM/DL (6.4-8.2); TROPONIN I < 0.02 NG/ML (< 0.10)
[2020-04-18] MEDS ORDERED: ISOVUE-370 76% 100ML VIAL As Ordered ONE (16:12)
--- NOTE | 2020-04-18 16:39 | REP ---
INDICATION: elevated D-Dimer with central/left chest pain COMPARISON: None. TECHNIQUE: Axial contrast enhanced images from the thoracic inlet to the upper abdomen using pulmonary embolus technique with multiplanar re-formations. 75 ml Isovue 370 intravenous contrast material administered without complication. This CT examination was performed using the following dose reduction techniques: Automated exposure control, adjustment of mA and/or kv according to the patient's size, and use of iterative reconstruction technique. FINDINGS: Satisfactory enhancement of the pulmonary vasculature is achieved and no filling defects are identified to suggest pulmonary embolus. Further evaluation of the mediastinum demonstrates normal thoracic aorta, heart and pericardium. The bilateral lung lau are well aerated and clear without consolidation pleural effusion or pneumothorax. Tracheobronchial tree is patent. No nodule or mass lesion is identified. No adenopathy noted. Surrounding musculoskeletal structures intact IMPRESSION: No evidence for pulmonary embolus. No acute mediastinal or pleural parenchymal process. <Electronically signed by Herminio Salvador > 04/18/20 [id number]
--- NOTE | 2020-04-18 17:15 | ECGEPIP ---
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
[2020-04-18 17:25] VITALS: BP 130/100
== END 2020-04-18 17:24 | disposition home or self-care (01) ==
LOC: M ED 12:22
DX: R07.9 Chest pain, unspecified (principal); K21.9 Gastro-esophageal reflux disease without esophagitis; J45.909 Unspecified asthma, uncomplicated; Z79.51 Long term (current) use of inhaled steroids; Z79.899 Other long term (current) drug therapy
CPT/HCPCS: 71046; 71275; 80053; 82550; 82553; 84484; 84702; 85025; 85379; 93005; 93971; 99284; Q9967

== ENCOUNTER 2020-05-17 19:19 | Emergency (ER) | payer OTHER ==
[~2020-05-17] VITALS: Ht 167.6 cm; Wt 122.7 kg
[2020-05-17 21:21] LABS: BASO # 0.1 10^3/uL (0.0-0.2); BASO % 0.5 % (0.0-1.0); EOS # 0.1 10^3/uL (0.0-0.5); HEMATOCRIT 42.2 % (36.0-47.0); HEMOGLOBIN 13.5 g/dl (12.0-15.5); LYMPH # 2.1 10^3/uL (1.5-5.0); LYMPH % 15.5 % (24.0-44.0); MEAN CORPUSCULAR HEMOGLOBIN 28.5 pg (27.0-33.0); MEAN CORPUSCULAR VOLUME 89.2 fl (80.0-96.0); MONO # 0.8 10^3/uL (0.0-0.8); MONO % 5.6 % (2.0-8.0); NEUTROPHILS # 10.5 10^3/uL (1.5-8.5); PLATELET COUNT, AUTOMATED 327 10^3/uL (150-450); RED BLOOD COUNT 4.73 10^6/uL (4.00-5.40); WHITE BLOOD COUNT 13.6 10^3/uL (4.0-10.0)
[2020-05-17 21:48] LABS: BLOOD UREA NITROGEN 10 MG/DL (7-18); CALCIUM LEVEL 9.7 MG/DL (8.5-10.1); CARBON DIOXIDE LEVEL 29 MEQ/L (21-32); CHLORIDE LEVEL 101 MEQ/L (98-107); CK-MB VALUE MASS < 1.0 NG/ML (<3.6); CPK CREATINE PHOSPHOKINASE 115 U/L (26-192); FREE T4 1.13 NG/DL (0.76-1.46); GLOMERULAR FILTRATION RATE > 60.0 (>60); GLUCOSE, FASTING 99 MG/DL (70-100); MAGNESIUM LEVEL 1.8 MG/DL (1.8-2.4); MB/CK RELATIVE INDEX 0.87 (< OR =4); POTASSIUM SERUM 4.1 MEQ/L (3.5-5.1); SODIUM LEVEL 136 MEQ/L (136-145); TROPONIN I < 0.02 NG/ML (< 0.10)
[2020-05-17 22:30] VITALS: BP 133/66
--- NOTE | 2020-05-18 06:45 | ECGEPIP ---
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
== END 2020-05-17 22:59 | disposition home or self-care (01) ==
LOC: M ED 19:19
DX: F41.9 Anxiety disorder, unspecified (principal); R51.9 Headache, unspecified; K21.9 Gastro-esophageal reflux disease without esophagitis; Z79.899 Other long term (current) drug therapy

== ENCOUNTER 2020-09-01 15:09 | Emergency (ER) | payer OTHER ==
[~2020-09-01] VITALS: Ht 170.2 cm; Wt 128.9 kg
[~2020-09-01 15:09] MED LIST changes: +OMEP40CA4 PO; -OMEP40CA97 PO
[2020-09-01 15:10] VITALS: BP 149/92
[2020-09-01] MEDS ORDERED: PROT1TAB2 (15:15)
== END 2020-09-01 18:39 | disposition left against medical advice (07) ==
LOC: M ED 15:09
DX: Z53.21 Procedure and treatment not carried out due to patient leaving prior to being seen by health care provider (principal)

== ENCOUNTER 2020-09-03 12:39 | Emergency (ER) | payer OTHER ==
[~2020-09-03] VITALS: Ht 170.2 cm; Wt 128.2 kg
[~2020-09-03 12:39] MED LIST changes: +PROT1TAB2
[2020-09-03] MEDS ORDERED: ACET-907 PO (12:45)
[2020-09-03 13:21] LABS: BASO # 0.1 10^3/uL (0.0-0.2); BASO % 0.5 % (0.0-1.0); EOS # 0.1 10^3/uL (0.0-0.5); EOS % 0.8 % (0.0-3.0); HEMATOCRIT 42.5 % (36.0-47.0); LYMPH # 1.3 10^3/uL (1.5-5.0); LYMPH % 11.2 % (24.0-44.0); MEAN CORPUSCULAR HEMOGLOBIN 29.4 pg (27.0-33.0); MEAN CORPUSCULAR HGB CONC 32.9 g/dl (32.0-36.5); MEAN CORPUSCULAR VOLUME 89.3 fl (80.0-96.0); MONO # 0.6 10^3/uL (0.0-0.8); MONO % 5.1 % (2.0-8.0); NEUTROPHILS # 9.4 10^3/uL (1.5-8.5); PLATELET COUNT, AUTOMATED 281 10^3/uL (150-450); RED BLOOD COUNT 4.76 10^6/uL (4.00-5.40); WHITE BLOOD COUNT 11.5 10^3/uL (4.0-10.0)
[2020-09-03 13:44] LABS: HCG, SERUM QUALITATIVE NEGATIVE (NEGATIVE)
[2020-09-03 13:45] LABS: ALBUMIN 3.7 GM/DL (3.2-5.2); ALT/SGPT 24 U/L (12-78); BILIRUBIN,DIRECT 0.2 MG/DL (0.0-0.2); BILIRUBIN,TOTAL 0.7 MG/DL (0.2-1.0); TOTAL PROTEIN 7.6 GM/DL (6.4-8.2)
[2020-09-03 15:03] LABS: APPEARANCE, URINE HAZY (CLEAR); BACTERIA, URINE AUTO NEGATIVE (NEGATIVE); BILIRUBIN, URINE AUTO NEGATIVE (NEGATIVE); BLOOD, URINE BLOOD 3+ (NEGATIVE); COLOR, URINE YELLOW (YELLOW); GLUCOSE, URINE (UA) AUTO NEGATIVE (NEGATIVE); KETONE, URINE AUTO NEGATIVE (NEGATIVE); LEUKOCYTE ESTERASE, URINE AUTO NEGATIVE (NEGATIVE); MUCUS, URINE SMALL (NEGATIVE); NITRITE, URINE AUTO NEGATIVE (NEGATIVE); PROTEIN, URINE AUTO 1+ mg/dL (NEGATIVE); RBC, URINE AUTO TNTC /HPF (0-3); SPECIFIC GRAVITY URINE AUTO 1.024 (1.002-1.035); SQUAMOUS EPITHELIAL CELL UR AU 0 /HPF (0-6); UROBILINOGEN, URINE AUTO 0.2 mg/dL (0.0-2.0); WBC, URINE AUTO 1 /HPF (0-3)
[2020-09-03 16:32] LABS: PARTIAL THROMBOPLASTIN TIME 36.7 SECONDS (24.2-38.5); PROTHROMBIN TIME 13.4 SECONDS (12.5-14.3)
[2020-09-03 16:52] LABS: CK-MB VALUE MASS < 1.0 NG/ML (<3.6); CPK CREATINE PHOSPHOKINASE 90 U/L (26-192); MB/CK RELATIVE INDEX 1.11 (< OR =4); TROPONIN I < 0.02 NG/ML (< 0.10)
[2020-09-03 17:23] VITALS: BP 144/90
--- NOTE | 2020-09-03 22:10 | ECGEPIP ---
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
== END 2020-09-03 17:25 | disposition home or self-care (01) ==
LOC: M ED 12:39
DX: R04.0 Epistaxis (principal); I10 Essential (primary) hypertension

== ENCOUNTER 2020-09-05 15:14 | Emergency (ER) | payer OTHER ==
[~2020-09-05] VITALS: Ht 167.6 cm; Wt 128.1 kg
[~2020-09-05 15:14] MED LIST changes: +ACET-907 PO
[2020-09-05] MEDS ORDERED: BENA25CA4 PO (15:20)
[2020-09-05] MEDS ORDERED: GI COCKTAIL 50ML BTL(HYOSCYAMINE/MAALOX/LIDOCAINE VISCOUS)(1:3:1) PO ONE (18:20)
[2020-09-05 18:59] LABS: BASO # 0.1 10^3/uL (0.0-0.2); BASO % 0.7 % (0.0-1.0); EOS # 0.1 10^3/uL (0.0-0.5); EOS % 0.8 % (0.0-3.0); HEMATOCRIT 40.5 % (36.0-47.0); HEMOGLOBIN 13.4 g/dl (12.0-15.5); LYMPH # 1.7 10^3/uL (1.5-5.0); LYMPH % 15.7 % (24.0-44.0); MEAN CORPUSCULAR HEMOGLOBIN 29.1 pg (27.0-33.0); MEAN CORPUSCULAR HGB CONC 33.1 g/dl (32.0-36.5); MONO # 0.6 10^3/uL (0.0-0.8); MONO % 5.1 % (2.0-8.0); NEUTROPHILS # 8.4 10^3/uL (1.5-8.5); NEUTROPHILS % 77.3 % (36.0-66.0); PLATELET COUNT, AUTOMATED 322 10^3/uL (150-450); WHITE BLOOD COUNT 10.9 10^3/uL (4.0-10.0)
[2020-09-05 19:27] LABS: CK-MB VALUE MASS < 1.0 NG/ML (<3.6); CPK CREATINE PHOSPHOKINASE 63 U/L (26-192); MB/CK RELATIVE INDEX 1.59 (< OR =4); TROPONIN I < 0.02 NG/ML (< 0.10)
[2020-09-05 20:36] VITALS: BP 140/93
--- NOTE | 2020-09-06 17:30 | ECGEPIP ---
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
== END 2020-09-05 20:32 | disposition home or self-care (01) ==
LOC: M ED 15:14
DX: R07.9 Chest pain, unspecified (principal); D72.829 Elevated white blood cell count, unspecified; G47.33 Obstructive sleep apnea (adult) (pediatric); K21.9 Gastro-esophageal reflux disease without esophagitis; J45.909 Unspecified asthma, uncomplicated

== ENCOUNTER 2020-10-05 22:08 | Emergency (ER) | payer OTHER ==
[~2020-10-05] VITALS: Ht 170.2 cm; Wt 125.3 kg
[~2020-10-05 22:08] MED LIST changes: +BENA25CA4 PO
[2020-10-05] MEDS ORDERED: OMEP-218 PO (23:25)
[2020-10-06 08:15] VITALS: BP 148/89
== END 2020-10-06 08:29 | disposition home or self-care (01) ==
LOC: M ED 22:08
DX: F41.0 Panic disorder [episodic paroxysmal anxiety] (principal); J45.909 Unspecified asthma, uncomplicated; G47.33 Obstructive sleep apnea (adult) (pediatric)

== ENCOUNTER → 2020-10-08 | Outpatient (CLI) | payer OTHER ==
[~2020-10-08] MED LIST changes: +OMEP-218 PO
[2020-10-08 16:04] LABS: BASO # 0.1 10^3/uL (0.0-0.2); BASO % 0.6 % (0.0-1.0); EOS # 0.1 10^3/uL (0.0-0.5); EOS % 0.6 % (0.0-3.0); HEMATOCRIT 39.4 % (36.0-47.0); HEMOGLOBIN 12.8 g/dl (12.0-15.5); LYMPH # 1.7 10^3/uL (1.5-5.0); LYMPH % 14.3 % (24.0-44.0); MEAN CORPUSCULAR HEMOGLOBIN 28.6 pg (27.0-33.0); MEAN CORPUSCULAR HGB CONC 32.5 g/dl (32.0-36.5); MEAN CORPUSCULAR VOLUME 88.1 fl (80.0-96.0); MONO # 0.7 10^3/uL (0.0-0.8); MONO % 6.2 % (2.0-8.0); NEUTROPHILS # 9.1 10^3/uL (1.5-8.5); NEUTROPHILS % 77.8 % (36.0-66.0); PLATELET COUNT, AUTOMATED 344 10^3/uL (150-450); RED BLOOD COUNT 4.47 10^6/uL (4.00-5.40); WHITE BLOOD COUNT 11.6 10^3/uL (4.0-10.0)
[2020-10-08 16:31] LABS: ERYTHROCYTE SEDIMENTATION RATE 35 mm/hr (0-20)
[2020-10-08 16:46] LABS: ALBUMIN 3.8 GM/DL (3.2-5.2); ALT/SGPT 20 U/L (12-78); BILIRUBIN,TOTAL 0.7 MG/DL (0.2-1.0); BLOOD UREA NITROGEN 8 MG/DL (7-18); C REACTIVE PROTEIN QUANTITATIV 1.49 MG/DL (0.00-0.30); CALCIUM LEVEL 9.4 MG/DL (8.5-10.1); CARBON DIOXIDE LEVEL 27 MEQ/L (21-32); CHLORIDE LEVEL 104 MEQ/L (98-107); CPK CREATINE PHOSPHOKINASE 74 U/L (26-192); CREATININE FOR GFR 0.76 MG/DL (0.55-1.30); GLOMERULAR FILTRATION RATE > 60.0 (>60); GLUCOSE, FASTING 79 MG/DL (70-100); POTASSIUM SERUM 4.1 MEQ/L (3.5-5.1); SODIUM LEVEL 138 MEQ/L (136-145); THYROID STIMULATING HORMONE 0.904 uIU/ML (0.358-3.740); TOTAL PROTEIN 7.7 GM/DL (6.4-8.2)
== END ==
LOC: M WUC 14:21
PROVIDERS: ATTEND Physician Assistant
DX: M79.10 Myalgia, unspecified site (principal); Z20.828 Contact with and (suspected) exposure to other viral communicable diseases

== ENCOUNTER 2020-10-10 00:40 | Emergency (ER) | payer OTHER ==
[~2020-10-10] VITALS: Ht 170.2 cm; Wt 125.8 kg
[2020-10-10] MEDS ORDERED: NS 1,000 ML IV ONE (05:35)
[2020-10-10 06:29] LABS: BASO # 0.1 10^3/uL (0.0-0.2); EOS # 0.1 10^3/uL (0.0-0.5); HEMATOCRIT 37.3 % (36.0-47.0); HEMOGLOBIN 12.4 g/dl (12.0-15.5); LYMPH # 1.8 10^3/uL (1.5-5.0); LYMPH % 21.2 % (24.0-44.0); MEAN CORPUSCULAR HEMOGLOBIN 29.4 pg (27.0-33.0); MEAN CORPUSCULAR HGB CONC 33.2 g/dl (32.0-36.5); MEAN CORPUSCULAR VOLUME 88.4 fl (80.0-96.0); MONO # 0.5 10^3/uL (0.0-0.8); MONO % 6.3 % (2.0-8.0); NEUTROPHILS # 5.8 10^3/uL (1.5-8.5); NEUTROPHILS % 70.1 % (36.0-66.0); PLATELET COUNT, AUTOMATED 319 10^3/uL (150-450); RED BLOOD COUNT 4.22 10^6/uL (4.00-5.40); WHITE BLOOD COUNT 8.2 10^3/uL (4.0-10.0)
[2020-10-10 06:32] LABS: APPEARANCE, URINE HAZY (CLEAR); BACTERIA, URINE AUTO 2+ (NEGATIVE); BILIRUBIN, URINE AUTO NEGATIVE (NEGATIVE); BLOOD, URINE BLOOD NEGATIVE (NEGATIVE); COLOR, URINE YELLOW (YELLOW); GLUCOSE, URINE (UA) AUTO NEGATIVE (NEGATIVE); KETONE, URINE AUTO NEGATIVE (NEGATIVE); LEUKOCYTE ESTERASE, URINE AUTO NEGATIVE (NEGATIVE); MUCUS, URINE SMALL (NEGATIVE); NITRITE, URINE AUTO NEGATIVE (NEGATIVE); PROTEIN, URINE AUTO NEGATIVE (NEGATIVE); RBC, URINE AUTO 1 /HPF (0-3); SPECIFIC GRAVITY URINE AUTO 1.005 (1.002-1.035); SQUAMOUS EPITHELIAL CELL UR AU 7 /HPF (0-6); UROBILINOGEN, URINE AUTO 0.2 mg/dL (0.0-2.0); WBC, URINE AUTO 2 /HPF (0-3)
[2020-10-10 06:50] LABS: OSMOLALITY SERUM 287 MOSM/KG (275-295)
[2020-10-10 06:53] LABS: AMPHETAMINES LEVEL URINE NEGATIVE (NEGATIVE); BARBITURATES URINE NEGATIVE (NEGATIVE); BENZODIAZEPINES URINE NEGATIVE (NEGATIVE); CANNABINOIDS URINE NEGATIVE (NEGATIVE); COCAINE METABOLITE URINE NEGATIVE (NEGATIVE); METHADONE URINE NEGATIVE (NEGATIVE); OPIATES URINE NEGATIVE (NEGATIVE); PHENCYCLIDINE URINE NEGATIVE (NEGATIVE)
[2020-10-10 06:56] LABS: ACETAMINOPHEN LEVEL < 2.0 UG/ML (10.0-30.0); ALBUMIN 3.5 GM/DL (3.2-5.2); ALT/SGPT 19 U/L (12-78); BILIRUBIN,DIRECT 0.1 MG/DL (0.0-0.2); BILIRUBIN,TOTAL 0.6 MG/DL (0.2-1.0); BLOOD UREA NITROGEN 6 MG/DL (7-18); C REACTIVE PROTEIN QUANTITATIV 1.59 MG/DL (0.00-0.30); CALCIUM LEVEL 8.9 MG/DL (8.5-10.1); CARBON DIOXIDE LEVEL 28 MEQ/L (21-32); CHLORIDE LEVEL 108 MEQ/L (98-107); CK-MB VALUE MASS 1.6 NG/ML (<3.6); CPK CREATINE PHOSPHOKINASE 70 U/L (26-192); CREATININE FOR GFR 0.66 MG/DL (0.55-1.30); ETHYL ALCOHOL (ETHANOL) < 0.003 % (0.000-0.010); GLOMERULAR FILTRATION RATE > 60.0 (>60); GLUCOSE, FASTING 87 MG/DL (70-100); MB/CK RELATIVE INDEX 2.29 (< OR =4); POTASSIUM SERUM 3.9 MEQ/L (3.5-5.1); SALICYLATE LEVEL < 1.7 MG/DL (5.0-30.0); SODIUM LEVEL 140 MEQ/L (136-145); TOTAL PROTEIN 7.3 GM/DL (6.4-8.2); TROPONIN I < 0.02 NG/ML (< 0.10)
[2020-10-10 07:00] LABS: ERYTHROCYTE SEDIMENTATION RATE 35 mm/hr (0-20)
--- NOTE | 2020-10-10 07:16 | REPVR ---
PROCEDURE INFORMATION: Exam: CT Head Without Contrast Exam date and time: 10/10/2020 6:59 AM Age: 30 years old Clinical indication: Altered mental status/memory loss TECHNIQUE: Imaging protocol: Computed tomography of the head without contrast. Radiation optimization: All CT scans at this facility use at least one of these dose optimization techniques: automated exposure control; mA and/or kV adjustment per patient size (includes targeted exams where dose is matched to clinical indication); or iterative reconstruction. COMPARISON: CT Head without contrast 01/28/2020 3:30 PM FINDINGS: Brain: Normal. No hemorrhage. Unremarkable white matter. No mass effect. Cerebral ventricles: No ventriculomegaly. Paranasal sinuses: Visualized sinuses are unremarkable. No fluid levels. Mastoid air cells: Visualized mastoid air cells are well aerated. Bones/joints: Unremarkable. No acute fracture. Soft tissues: Unremarkable. IMPRESSION: No acute intracranial abnormality. Electronically signed by: Bran Gonzalez On 10/10/2020 07:15:37 AM
[2020-10-10 07:36] VITALS: BP 172/93
--- NOTE | 2020-10-11 18:40 | ECGEPIP ---
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
== END 2020-10-10 09:00 | disposition home or self-care (01) ==
LOC: M ED 00:40
DX: R53.1 Weakness (principal); R20.2 Paresthesia of skin

== ENCOUNTER 2020-11-11 03:22 | Emergency (ER) | payer OTHER ==
[~2020-11-11] VITALS: Ht 167.6 cm; Wt 122.7 kg
[2020-11-11] MEDS ORDERED: PYRI60TA2 (03:31)
[2020-11-11 07:00] LABS: HEMATOCRIT 37.3 % (36.0-47.0); HEMOGLOBIN 12.1 g/dl (12.0-15.5); MEAN CORPUSCULAR HEMOGLOBIN 28.4 pg (27.0-33.0); MEAN CORPUSCULAR HGB CONC 32.4 g/dl (32.0-36.5); MEAN CORPUSCULAR VOLUME 87.6 fl (80.0-96.0); PLATELET COUNT, AUTOMATED 316 10^3/uL (150-450); RED BLOOD COUNT 4.26 10^6/uL (4.00-5.40); WHITE BLOOD COUNT 9.7 10^3/uL (4.0-10.0)
[2020-11-11] MEDS ORDERED: PYRIDOSTIGMINE 60MG TABLET PO ONE (07:10)
[2020-11-11 07:27] LABS: BLOOD UREA NITROGEN 8 MG/DL (7-18); CALCIUM LEVEL 8.9 MG/DL (8.5-10.1); CARBON DIOXIDE LEVEL 28 MEQ/L (21-32); CHLORIDE LEVEL 106 MEQ/L (98-107); CK-MB VALUE MASS < 1.0 NG/ML (<3.6); CPK CREATINE PHOSPHOKINASE 60 U/L (26-192); GLOMERULAR FILTRATION RATE > 60.0 (>60); GLUCOSE, FASTING 96 MG/DL (70-100); MB/CK RELATIVE INDEX 1.67 (< OR =4); POTASSIUM SERUM 4.5 MEQ/L (3.5-5.1); SODIUM LEVEL 139 MEQ/L (136-145); TROPONIN I < 0.02 NG/ML (< 0.10)
[2020-11-11 08:00] VITALS: BP 125/73
[2020-11-11] MEDS ORDERED: ISOVUE-370 76% 100ML VIAL As Ordered ONE (08:03)
--- NOTE | 2020-11-11 08:24 | REPVR ---
PROCEDURE INFORMATION: Exam: XR Chest Exam date and time: 11/11/2020 6:27 AM Age: 30 years old Clinical indication: Pain; Angina pectoris; Additional info: Chest tightness TECHNIQUE: Imaging protocol: XR of the chest. Views: 1 view. COMPARISON: CR Chest, 2 view PA, Lat 04/18/2020 3:41 PM FINDINGS: Lungs: Unremarkable. No consolidation. Pleural spaces: Unremarkable. No pleural effusion. No pneumothorax. Heart/Mediastinum: Unremarkable. No cardiomegaly. Bones/joints: Unremarkable. IMPRESSION: No acute findings. Electronically signed by: Earl Cosby On 11/11/2020 08:23:35 AM
--- NOTE | 2020-11-12 05:50 | ECGEPIP ---
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
== END 2020-11-11 08:38 | disposition left against medical advice (07) ==
LOC: M ED 03:22
DX: R06.02 Shortness of breath (principal); R07.9 Chest pain, unspecified; Z53.9 Procedure and treatment not carried out, unspecified reason; R00.2 Palpitations; J45.909 Unspecified asthma, uncomplicated; G70.00 Myasthenia gravis without (acute) exacerbation; Z79.899 Other long term (current) drug therapy

== ENCOUNTER 2020-11-17 16:01 | Emergency (ER) | payer OTHER ==
[~2020-11-17] VITALS: Ht 170.2 cm; Wt 127.1 kg
[~2020-11-17 16:01] MED LIST changes: +PYRI60TA2
[2020-11-17] MEDS ORDERED: PANT40TA29 (16:21)
[2020-11-17 18:05] LABS: VENOUS BASE EXCESS -1.4 (-2.0-2.0); VENOUS HCO3 23.5 MEQ/L (23.0-27.0); VENOUS O2 SATURATION 88.3 % (60.0-80.0); VENOUS PARTIAL PRESSURE CO2 40.3 mmHg (38.0-50.0); VENOUS PARTIAL PRESSURE O2 57.1 mmHg (30.0-50.0); VENOUS PH 7.384 UNITS (7.330-7.430); VENOUS STANDARD HCO3 23.1 MEQ/L; VENOUS TOTAL CO2 24.8 MEQ/L (24.0-28.0)
[2020-11-17 18:16] LABS: BASO # 0.1 10^3/uL (0.0-0.2); BASO % 0.7 % (0.0-1.0); EOS # 0.1 10^3/uL (0.0-0.5); EOS % 0.9 % (0.0-3.0); HEMATOCRIT 37.9 % (36.0-47.0); HEMOGLOBIN 12.6 g/dl (12.0-15.5); LYMPH # 2.4 10^3/uL (1.5-5.0); LYMPH % 17.9 % (24.0-44.0); MEAN CORPUSCULAR HEMOGLOBIN 28.6 pg (27.0-33.0); MEAN CORPUSCULAR HGB CONC 33.2 g/dl (32.0-36.5); MEAN CORPUSCULAR VOLUME 85.9 fl (80.0-96.0); MONO # 0.9 10^3/uL (0.0-0.8); MONO % 6.4 % (2.0-8.0); NEUTROPHILS # 9.8 10^3/uL (1.5-8.5); NEUTROPHILS % 73.7 % (36.0-66.0); PLATELET COUNT, AUTOMATED 324 10^3/uL (150-450); RED BLOOD COUNT 4.41 10^6/uL (4.00-5.40); WHITE BLOOD COUNT 13.2 10^3/uL (4.0-10.0)
[2020-11-17 18:45] LABS: BLOOD UREA NITROGEN 9 MG/DL (7-18); CARBON DIOXIDE LEVEL 24 MEQ/L (21-32); CHLORIDE LEVEL 105 MEQ/L (98-107); CREATININE FOR GFR 0.78 MG/DL (0.55-1.30); GLOMERULAR FILTRATION RATE > 60.0 (>60); GLUCOSE, FASTING 81 MG/DL (70-100); POTASSIUM SERUM 5.3 MEQ/L (3.5-5.1); SODIUM LEVEL 137 MEQ/L (136-145)
[2020-11-17 18:46] LABS: ALBUMIN 3.6 GM/DL (3.2-5.2); ALT/SGPT 25 U/L (12-78); BILIRUBIN,TOTAL 0.7 MG/DL (0.2-1.0); FREE THYROXINE INDEX 3.7 % (1.3-4.8); T UPTAKE 36 % (30-39); THYROXINE (T4) 10.4 UG/DL (4.5-12.0)
--- NOTE | 2020-11-17 18:59 | REP ---
INDICATION: MG, can't swallow, eval for aspiration. COMPARISON: November 11, 2020 TECHNIQUE: Two views.. FINDINGS: The lungs are well inflated and free of infiltrate. The pleural angles are sharp. The heart size is normal. Pulmonary vasculature is not increased. No significant bony abnormality is seen. IMPRESSION: Negative chest x-ray. <Electronically signed by Shan Vo > 11/17/20 [id number]
[2020-11-17 20:47] VITALS: BP 155/98
== END 2020-11-17 20:55 | disposition home or self-care (01) ==
LOC: M ED 16:01
DX: G70.00 Myasthenia gravis without (acute) exacerbation (principal); J45.909 Unspecified asthma, uncomplicated

== ENCOUNTER 2020-12-06 09:41 | Emergency (ER) | payer OTHER ==
[~2020-12-06] VITALS: Ht 170.2 cm; Wt 122.7 kg
--- OUTSIDE RECORDS SUMMARY | 2020-12-06 09:50 | CCD | Continuity of Care Document ---
Author Author Karma HU M.D. Organization Unknown Address [address] [place] [address] Phone [phone] Problems Description No Information Available Social History Type Date Description Comments Sex Unknown Allergies and adverse reactions Description No Information Available Medications Description No Information Available Immunizations Description No Information Available Vital Signs Description No Information Available Results Description No Information Available Procedures Date Code Description Status 11/23/2020 48621 Magnetic Resonance Angiography N larry W/O Contrast Materials Completed 11/23/2020 66292 Magnetic Resonance Angiography N larry W/O Contrast Materials Completed 11/23/2020 69593 Magnetic Resonance Angiogtaphy H ead W/O Contrast Material(S) Completed 11/23/2020 05970 Magnetic Resonance Angiogtaphy H ead W/O Contrast Material(S) Completed 11/22/2020 86198 Office/Outpatient Established Mo d MDM 30-39 Min Completed 08/13/2020 72513 Office/Outpatient Established Mo d MDM 30-39 Min Completed 07/20/2020 92863 MRI Brain W/O Contrast Completed 07/20/2020 20092 MRI Brain W/O Contrast Completed 06/12/2020 69196 EEG Recording Awake & Asleep Com pleted 06/12/2020 48842 EEG Recording Awake & Asleep Com pleted 06/01/2020 83814 Sympathetic Skin Responses Compl eted 06/01/2020 89371 Test Autonomic Nervous System, C ardiovagal Innervation Completed 05/31/2020 81056 Office Consultation Level 4 Comp leted Medical Devices Description No Information Available Encounters Type Date Location Provider Dx Diagnosis Office Visit 11/22/2020 10:00a Main office - [place] Hu M.D. R42 Dizziness and giddiness M62.81 Muscle weakness (generalized ) G70.00 Myasthenia gravis without (a cute) exacerbation R41.82 Altered mental status, unspe cified Office Visit 08/13/2020 7:30a Main office - [place] Hu M.D. R42 Dizziness and giddiness I95.1 Orthostatic hypotension G44.209 Tension-type headache, unspe cified, not intractable R41.82 Altered mental status, unspe cified Office Visit 05/31/2020 12:30p Main office - [place] Katlyn Hu M.D. 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 R42 Dizziness and giddiness G44.209 Tension-type headache, unspe cified, not intractable R41.82 Altered mental status, unspe cified R26.89 Other abnormalities of gait and mobility Assessments Date Code Description Provider 11/23/2020 G44.209 Tension-type headache, unspecifi ed, not intractable Kristin Hu M.D. 11/23/2020 G44.209 Tension-type headache, unspecifi ed, not intractable MRI 11/23/2020 R42 Dizziness and giddiness Kristin Goyal M.D. 11/23/2020 R42 Dizziness and giddiness MRI 11/23/2020 R41.82 Altered mental status, unspecifi ed Kristin Hu M.D. 11/23/2020 R41.82 Altered mental status, unspecifi ed MRI 11/22/2020 R42 Dizziness and giddiness Katlyn bellamy M.D. 11/22/2020 M62.81 Muscle weakness (generalized) Rosenthal nixon Hu M.D. 11/22/2020 G70.00 Myasthenia gravis without (acute ) exacerbation Katlyn Hu M.D. 11/22/2020 R41.82 Altered mental status, unspecifi ed Katlyn Hu M.D. 08/13/2020 R42 Dizziness and giddiness Katlyn bellamy M.D. 08/13/2020 I95.1 Orthostatic hypotension Katlyn bellamy M.D. 08/13/2020 G44.209 Tension-type headache, unspecifi ed, not intractable Symone MeyerDTiffani 08/13/2020 R41.82 Altered mental status, unspecifi ed KatlynSymone RiggsDTiffani 07/20/2020 R41.82 Altered mental status, unspecifi ed Kristin Maggie Hu.DTiffani 07/20/2020 R41.82 Altered mental status, unspecifi ed MRI 07/20/2020 I95.1 Orthostatic hypotension Kristin La Maggie duong.DTiffani 07/20/2020 I95.1 Orthostatic hypotension MRI 07/20/2020 R26.89 Other abnormalities of gait and mobility Kristin Hu M.DTiffani 07/20/2020 R26.89 Other abnormalities of gait and mobility MRI 06/12/2020 R41.82 Altered mental status, unspecifi ed Maggie Meyer.DTiffani 06/12/2020 R41.82 Altered mental status, unspecifi ed EEG 06/12/2020 R25.8 Other abnormal involuntary movem ents Symone MeyerDTiffani 06/12/2020 R25.8 Other abnormal involuntary movem ents EEG 06/01/2020 I95.1 Orthostatic hypotension Katlyn Valentina bellamy M.D. 06/01/2020 I95.1 Orthostatic hypotension Ans/VS 05/31/2020 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 05/31/2020 R42 Dizziness and giddiness Katlyn bellamy M.D. 05/31/2020 G44.209 Tension-type headache, unspecifi ed, not intractable Symone MeyerDTiffani 05/31/2020 R41.82 Altered mental status, unspecifi ed Symone MeyerDTiffani 05/31/2020 R26.89 Other abnormalities of gait and mobility Katlyn Hu M.D. Plan of Treatment Future Appointment(s):* 01/31/2021 8:15 am - Katlyn Hu M.D. at [facility] * 01/22/2021 9:45 am - EEG at [facility] Functional Status Description No Information Available Mental Status Description No Information Available Referrals Refer to Reason for Referral Status Appt Date Created Carol Shanks M.D. Created [facility] [address] [place] [address] [phone] Carol Shanks M.D. Created [facility] [address] [place] [address] [phone]
--- OUTSIDE RECORDS SUMMARY | 2020-12-06 09:50 | CCD | Continuity of Care Document ---
Author Author Karma NEAL MD Organization Unknown Address [facility] [address] [place] [address] Phone [phone] Care Team Providers Care Supervisor Doping Name Role Phone No PCP [facility] Unavailable Problems Description No Information Available Social History Type Date Description Comments Sex Unknown ETOH Use Never used alcohol Tobacco Use Start: Unknown Patient has never smoked (pipe, cigarette, cigar) Recreational Drug Use Never Used Drugs Allergies, Adverse Reactions, Alerts Description No Known Drug Allergies Medications Active Medications SIG Qnty Indications Ordering Provide r Date Pyridostigmine Stonewall 60mg Tablets Yash Taylor MD PHD Fluticasone Propionate 50mcg/Act Suspension Leeanna Harris Multi Vitamin And Minerals Tablet s 1 by mouth every day Unknown Immunizations Description No Information Available Vital Signs Description No Information Available Procedures Date Code Description Status 10/24/2020 05284 Office/Outpatient New Moderate M DM 45-59 Minutes Completed 10/16/2020 54392 Office/Outpatient Established Lo w MDM 20-29 Min Completed 10/15/2020 56081 Office/Outpatient Established Lo w MDM 20-29 Min Completed 10/14/2020 48910 Office/Outpatient Established Lo w MDM 20-29 Min Completed 10/13/2020 67716 Office/Outpatient Established SF MDM 10-19 Min Completed 10/12/2020 72499 Office/Outpatient New Moderate M DM 45-59 Minutes Completed Medical Devices Description No Information Available Encounters Type Date Location Provider Dx Diagnosis Office Visit 10/24/2020 11:20a [facility] Avel Neal MD R53 .1 Weakness R20.2 Paresthesia of skin Office Visit 10/16/2020 2:50a [facility] CAREY Hernandez R53.1 Weakness Office Visit 10/15/2020 2:11a [facility] Neurology CAREY Jurado R53.1 Weakness Office Visit 10/14/2020 2:03a [facility] Neurology Cameron Andrew MD R 53.1 Weakness Office Visit 10/13/2020 2:06a [facility] Neurology Cameron Andrew MD R 53.1 Weakness Office Visit 10/12/2020 8:35a [facility] Neurology Avel Neal MD R53 .1 Weakness Assessments Date Code Description Provider 10/24/2020 R53.1 Weakness Avel Neal MD 10/24/2020 R20.2 Paresthesia of skin Avel grissom MD 10/16/2020 R53.1 Weakness Denise Hernandez 10/15/2020 R53.1 Weakness CAREY Jurado 10/14/2020 R53.1 Weakness Cameron jean MD 10/13/2020 R53.1 Weakness Cameron jean MD 10/12/2020 R53.1 Weakness Avel Neal MD Plan of Treatment Future Appointment(s):* 12/06/2020 3:00 pm - Avel Neal MD at [facility] Neurology 10/24/2020 - Avel Neal MD* R53.1 Weakness* New Xrays:* MRI Brain W/O Contrast, Ordered: 10/24/20 * MRI Cervical Spine W/O Contrast, Ordered: 10/24/20 * New Orders:* EMG/Nerve Conduction, Ordered: 10/24/20 * Comments:* Was scheduled for laboratory testing including anti-musk antibodies and inflammatory markers and connective tissue disorders along with an MRI of the brain, cervical spine and most importantly an EMG nerve conduction study with repetitive stimulation and single-fiber EMG to rule out myasthenia. Patient was told to stop the Mestinon * Follow up:* 2 weeks after EMG nerve conduction study * R20.2 Paresthesia of skin Functional Status Description No Information Available Mental Status Description No Information Available Referrals Description No Information Available
--- OUTSIDE RECORDS SUMMARY | 2020-12-06 09:50 | CCD | Continuity of Care Document ---
Author Author Karma HU M.D. Organization Unknown Address [address] [place] [address] Phone [phone] Problems Description No Information Available Social History Type Date Description Comments Sex Unknown Allergies and adverse reactions Description No Information Available Medications Description No Information Available Immunizations Description No Information Available Vital Signs Description No Information Available Results Description No Information Available Procedures Date Code Description Status 11/23/2020 14087 Magnetic Resonance Angiography N larry W/O Contrast Materials Completed 11/23/2020 55788 Magnetic Resonance Angiography N larry W/O Contrast Materials Completed 11/23/2020 85715 Magnetic Resonance Angiogtaphy H ead W/O Contrast Material(S) Completed 11/23/2020 38712 Magnetic Resonance Angiogtaphy H ead W/O Contrast Material(S) Completed 11/22/2020 57560 Office/Outpatient Established Mo d MDM 30-39 Min Completed 08/13/2020 63586 Office/Outpatient Established Mo d MDM 30-39 Min Completed 07/20/2020 97120 MRI Brain W/O Contrast Completed 07/20/2020 39223 MRI Brain W/O Contrast Completed 06/12/2020 28661 EEG Recording Awake & Asleep Com pleted 06/12/2020 25552 EEG Recording Awake & Asleep Com pleted 06/01/2020 32347 Sympathetic Skin Responses Compl eted 06/01/2020 21024 Test Autonomic Nervous System, C ardiovagal Innervation Completed Medical Devices Description No Information Available Encounters Type Date Location Provider Dx Diagnosis Office Visit 11/22/2020 10:00a Main office - [place] Katlyn Hu M.D. R42 Dizziness and giddiness M62.81 Muscle weakness (generalized ) G70.00 Myasthenia gravis without (a cute) exacerbation R41.82 Altered mental status, unspe cified Office Visit 08/13/2020 7:30a Main office - [place] Katlyn Hu M.D. R42 Dizziness and giddiness I95.1 Orthostatic hypotension G44.209 Tension-type headache, unspe cified, not intractable R41.82 Altered mental status, unspe cified Assessments Date Code Description Provider 11/23/2020 G44.209 [...] G44.209 Tension-type headache, unspecifi ed, not intractable Katlyn Hu M.D. 08/13/2020 R41.82 Altered mental status, unspecifi ed Katlyn Hu M.D. 07/20/2020 R41.82 Altered mental status, unspecifi ed Kristin Hu M.D. 07/20/2020 R41.82 Altered mental status, unspecifi ed MRI 07/20/2020 I95.1 Orthostatic hypotension Kristin Goyal M.D. 07/20/2020 I95.1 Orthostatic hypotension MRI 07/20/2020 R26.89 Other abnormalities of gait and mobility Kristin Hu M.D. 07/20/2020 R26.89 Other abnormalities of gait and mobility MRI 06/12/2020 R41.82 Altered mental status, unspecifi ed Katlyn Hu M.D. 06/12/2020 R41.82 Altered mental status, unspecifi ed EEG 06/12/2020 R25.8 Other abnormal involuntary movem ents Katlyn Hu M.D. 06/12/2020 R25.8 Other abnormal involuntary movem ents EEG 06/01/2020 I95.1 Orthostatic hypotension Katlyn bellamy M.D. 06/01/2020 I95.1 Orthostatic hypotension Ans/VS Plan of Treatment Future Appointment(s):* 01/31/2021 8:15 am - Katlyn Hu M.D. at [facility] * 01/22/2021 9:45 am - EEG at [facility] Functional Status Description No Information Available Mental Status Description No Information Available Referrals Refer to Dr Reason for Referral Status Appt Date Created Carol Shanks M.D. Created [facility] [address] [place] [address] [phone] Carol Shanks M.D. Created [facility] [address] [place] [address] [phone]
--- OUTSIDE RECORDS SUMMARY | 2020-12-06 09:50 | CCD | Continuity of Care Document ---
Author Author Frances [facility], Karma Organization Unknown Address [address] [address] Phone [phone] Care Team Providers Care Patient Registration Supervisor Name Role Phone No PCP AUTM Unavailable Problems Description No Information Available Social History Type Date Description Comments Sex Unknown ETOH Use Never used alcohol Tobacco Use Start: Unknown Patient has never smoked (pipe, cigarette, cigar) Recreational Drug Use Never Used Drugs Allergies, Adverse Reactions, Alerts Description No Known Drug Allergies Medications Active Medications SIG Qnty Indications Ordering Provide r Date Pyridostigmine [place] 60mg Tablets Yash Taylor MD PHD Fluticasone Propionate 50mcg/Act Suspension Leeanna Harris Multi Vitamin And Minerals Tablet s 1 by mouth every day Unknown Immunizations Description No Information Available Vital Signs Description No Information Available Results Test Acquired Date Facility Test Result H/L Range Note Cbcadp 10/24/2020 [facility] [address] [place] [address] [phone] WBC. 10.58 x10E3/uL 4.2-12.0 RBC 4.24 x10E6/uL 3.9-5.4 HGB 12.8 g/dL 12.0-16.0 HCT 37.8 % 36-47 MCV 89.2 fL 80-98 MCH 30.1 pg 27-33 MCHC 33.7 g/dL 32-36 RDW 13.1 % 11.2-15.2 PLT 281 x10E3/uL 135-420 MPV 8.5 fL 7.0-12.3 % Katerine 75.9 % 41.0-80.0 %Lym 18.6 % 10.0-45.2 %Carbon 4.1 % 2.0-13.0 %Eos 1.0 % 0.0-8.0 %Baso 0.4 % 0.0-3.0 Neut 8.0 x10E3/uL 2.0-8.1 Lymp 2.0 x10E3/uL 0.6-3.1 Carbon 0.4 x10E3/uL 0.0-1.0 Eos 0.1 x10E3/uL 0.0-0.6 Baso 0.0 x10E3/uL 0.0-0.2 CMP-Male 10/24/2020 [facility] [address] [place] [address] [phone] Glucose 86 mg/dL 74-106 1 BUN 9 mg/dL 6-20 Creatinine 0.7 mg/dL 0.5-1.3 Sodium 141 mmol/L 136-145 Potassium 4.0 mmol/L 3.5-5.3 Chloride 107 mmol/L 98-107 Co2 23 mEq/L 20-31 Anion Gap 11 mmol/L 7-16 eGFR-female 97 mL/m/1.73m - eGFR-Aa female 117 mL/m/1.73m - 2 Alk. Phos. 66 U/L 46-116 Alt 24 U/L 4-36 3 Ast 26 U/L 8-33 Total Bilirubin 0.8 mg/dL 0.3-1.2 Total Protein 7.3 g/dL 6.4-8.3 4 Albumin 4.3 g/dL 3.6-5.1 A/G Ratio 1.4 Ratio 1.0-2.0 Globulin 3 g/dL 1.9-3.7 Calcium 9.6 mg/dL 8.9-10.5 Laboratory test finding 10/24/2020 [facility] [address] [place] [address] [phone] CPK 52 U/L 26-174 5 CRP 1.6 mg/dL High 0-1.0 6 WSR 10 mm/hr 0-20 7 Miscellaneous <pending> L-Anca Profile 10/24/2020 [facility] [address] [place] [address] [phone] Anca Screen Negative Negative- 8 Laboratory test finding 10/24/2020 [facility] [address] [place] [address] [phone] Angiotensin Conv Enzyme 21 U/L 9-67 9 Comments See Note - 10 Interpretation See Note - 11 Methods See Note - 12 References See Note - 13 Sjogren`S AB (SS-A) <1.0 NEG AI <1.0 Neg- 14 Sjogren`S AB (SS-B) <1.0 NEG AI <1.0 Neg- 15 Technical Results See Note - 16 Cheri POSITIVE Negative-Negative 17 Ra 10.6 U/mL 0-13.99 18 Lyme Disease SCR W/RFX 10/24/2020 [facility] [address] [place] [address] [phone] Lyme Disease Screen with Reflex 0.66 0-0.90 19 1 [place] Diabetes Associatio n (ADA) Recommended Range is 65-99 mg/dL 2 Normal Kidney Function or Mi ld Disease GFR >59 mL/min/1.73m2 Chronic Kidney Disease GFR 15-59 mL/min/1.73m2 Renal Failure GFR <15 mL/min/1.73m2 3 Effective 08/16/2016: [facility] has indicated interference with the drugs sulfasalazine and sulfapyridine. They suggest collection should occur prior to drug administration due to falsely depressed results. 4 Results may reflect a potent ial interference in Total Protein results in patients receiving dextran as blood volume expanders. 5 musk ab cheri ra ssa ssb anca lyme parris 6 musk ab cheri ra ssa ssb anca lyme parris 7 musk ab cheri ra ssa ssb anca lyme parris 8 ANCA Screen includes evaluat ion for p-ANCA, c-ANCA and atypical p-ANCA. A positive ANCA screen reflexes to titer and pattern(s), e.g., cytoplasmic pattern (c-ANCA), perinuclear pattern (p-ANCA), or atypical p-ANCA pattern. c-ANCA and p-ANCA are observed in vasculitis, whereas atypical p-ANCA is observed in IBD (Inflammatory Bowel Disease). Atypical p -ANCA is detected in about 55% to 80% of patients with ulcerative colitis but only 5% to 25% of patients with Crohn`s disease. Nuclear staining may have obscured P-ANCA or atypical P-ANCA staining. Recommend that KRISTINA`s for anti- myeloperoxidase (MPO) and anti-proteinase 3 antibody (PR3) be promptly ordered, if not alread y ordered. To verify the presence of antinuclear antibody (CHERI) and determine its titer and pattern, the test for CHERI performed by indirect immunofluorescence (IFA) on HEp-2 cells, may be ordered. 9 musk ab cheri ra ssa ssb anca lyme parris 10 Comments: This result does n ot exclude a diagnosis of Myasthenia Gravis. Recommendations: Health care providers, please contact the [facility] Client Services Department at if you wish to speak with a clinical job service consultant regarding this test result. Other testing available: If there is high clinical suspicion for myasthenia gravis, consider testing for LRP4 antibodies. Background information:Myasthenia gravis (MG) is an autoimmune disease affecting the neuromuscular junctions of skeletal muscles. The predominant clinical feature is fatigability and weakness of the muscles that typically become progressively worse during periods of sustained activity and improve after periods of rest (1,2). Age of onset of MG is variable with an overall incidence of approximately 15:100,000 (1). Anti-MuSK antibodies have been associated with Myasthenia Gravis (3,4). Although the majority of patients with generalized myasthenia gravis (MG) have antibodies against AChR (AChR-MG), 10-15% are seronegative. Within this group, about 40% have anti-MuSK antibodies, representing 5-8% of the MG population (3,4). Diagnosis of MuSK MG can be challenging due to its atypical presentation, including few symptom fluctuations, non-responsiveness to acetylcholinesterase inhibitors in a significant proportion of patients and negative electrodiagnostic studies when performed on limb muscles (4). 11 NEGATIVE This test did not d etect abnormal levels of anti-MuSK antibodies. 12 Detection of antibodies was performed by Radioimmunoassay (MIROSLAVA) methodology. Limitations of analysis: Reagent effectiveness may affect the signal intensity of the response. Although rare, false positive or false negative results may occur. All results should be interpreted in the context of clinical findings, relevant history, and other laboratory data. 13 1. Taina Hart et al. (2005) ELENA 293: 1906-14. (PMID: 01673264) 2. MARIEL Reyes et al. (2000) Postgrad ed 107: 211-4, 220-2. (PMID: 75725365) 3. Ulices Diaz et al. (2014) J Auto immun 52: 90-100. (PMID: 97600856) 4. Dasha Guerrero et al. (2013) Autoimmun Rev 12: 931-5. (PMID: 70245598) This test was developed and its analytical performance characteristics have been determined by [facility]. It has not been cleared or approved by the U.S. Food and Drug Administration. This assay has been validated pursuant to the CLIA regulations and is used for clinical purposes. Laboratory oversight provided by Shaan Hunt M.D., Ph.D., CLIA license [place], [facility] (CLIA# [id number]) Testing performed at: [facility] [address] [place] [id number] 14 musk ab cheri ra ssa ssb anca lyme parris 15 musk ab cheri ra ssa ssb anca lyme parris 16 Interpretive Result Table INTERPRETIVE RESULT: Negative TEST: anti-MuSK TECHNICAL RESULT: <1:10 REFERENCE RANGE: Negative <1:10, Borderline 1:10, Positive >=1:20 17 titer pending 18 musk ab cheri ra ssa ssb anca lyme parris 19 Normal Range: Less than 0.90 Index Value Result Interpretation < or = 0.90 Negative No B. burgdorferi antibodies detected 0.91-1.19 Equivocal Possible B. b urgdorferi antibodies detected > or = 1.2 Positive B. burgdorferiantibodies detected This assay is intended for the presumptive detection of human IgG and IgM antibodies to Borrellia burgdorferi. A positive or equivocal result will be tested by Western Blot/Immunoblot and should not b e interpreted as truly positive until verified by such testing. If Lyme disease is strongly suspected with a negative screen, a second specimen should be collected in 2 to 4 weeks. Procedures Date Code Description Status 10/24/2020 46592 Office/Outpatient Established Mo d MDM 30-39 Min Completed 10/24/2020 95792 Office/Outpatient New Moderate M DM 45-59 Minutes Completed 10/16/2020 11673 Office/Outpatient Established Lo w MDM 20-29 Min Completed 10/15/2020 84249 Office/Outpatient Established Lo w MDM 20-29 Min Completed 10/14/2020 38228 Office/Outpatient Established Lo w MDM 20-29 Min Completed 10/14/2020 31342 Electrocardiogram Interpretation & Report Only Completed 10/13/2020 94318 Office/Outpatient Established SF MDM 10-19 Min Completed 10/12/2020 98683 Office/Outpatient New Moderate M DM 45-59 Minutes Completed Medical Devices Description No Information Available Encounters Type Date Location Provider Dx Diagnosis Office Visit 10/24/2020 11:20a [facility] Avel Neal MD R53 .1 Weakness R20.2 Paresthesia of skin Office Visit 10/16/2020 2:50a [facility] CAREY Hernandez R53.1 Weakness Office Visit 10/15/2020 2:11a [facility] CAREY Jurado R53.1 Weakness Office Visit 10/14/2020 2:03a [facility] Cameron Andrew MD R 53.1 Weakness Office Visit 10/13/2020 2:06a [facility] Cameron Andrew MD R 53.1 Weakness Office Visit 10/12/2020 8:35a [facility] Neurology Avel Neal MD R53 .1 Weakness Assessments Date Code Description Provider 10/24/2020 R53.1 Weakness Avel Neal MD 10/24/2020 R20.2 Paresthesia of skin Avel grissom MD 10/24/2020 R53.1 Weakness [facility] L abs 10/16/2020 R53.1 Weakness Denise Hernandez 10/15/2020 R53.1 Weakness CAREY Jurado 10/14/2020 R53.1 Weakness Cameron jean MD 10/14/2020 R53.1 Weakness Goyo Carter MD 10/14/2020 R20.0 Anesthesia of skin Goyo Carter MD 10/14/2020 R26.2 Difficulty in walking, not elsew here classified Goyo Carter MD 10/14/2020 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
--- OUTSIDE RECORDS SUMMARY | 2020-12-06 09:50 | CCD | Continuity of Care Document ---
Author Author Karma NEAL MD Organization Unknown Address [facility] [address], [address] [place] [address] Phone [phone] Care Team Providers Care Oral And Maxillofacial Pathologist Name Role Phone No PCP AUTM Unavailable Problems Description No Information Available Social History Type Date Description Comments Sex Unknown ETOH Use Never used alcohol Tobacco Use Start: Unknown Patient has never smoked (pipe, cigarette, cigar) Recreational Drug Use Never Used Drugs Allergies, Adverse Reactions, Alerts Description No Known Drug Allergies Medications Active Medications SIG Qnty Indications Ordering Provide r Date Pyridostigmine [place] 60mg Tablets Yash Taylor MD PHD Fluticasone Propionate 50mcg/Act Suspension Leeanna Harris Multi Vitamin And Minerals Tablet s 1 by mouth every day Unknown Immunizations Description No Information Available Vital Signs Description No Information Available Procedures Date Code Description Status 10/24/2020 04309 Office/Outpatient New Moderate M DM 45-59 Minutes Completed 10/16/2020 08668 Office/Outpatient Established Lo w MDM 20-29 Min Completed 10/15/2020 72291 Office/Outpatient Established Lo w MDM 20-29 Min Completed 10/14/2020 49585 Office/Outpatient Established Lo w MDM 20-29 Min Completed 10/13/2020 55968 Office/Outpatient Established SF MDM 10-19 Min Completed 10/12/2020 38519 Office/Outpatient New Moderate M DM 45-59 Minutes Completed Medical Devices Description No Information Available Encounters Type Date Location Provider Dx Diagnosis Office Visit 10/24/2020 11:20a [facility] Avel Neal MD R53 .1 Weakness R20.2 Paresthesia of skin Office Visit 10/16/2020 2:50a [facility] CAREY Hernandez R53.1 Weakness Office Visit 10/15/2020 2:11a [facility] Neurology CAREY Jurado R53.1 Weakness Office Visit 10/14/2020 2:03a [facility] Neurology Cameron Andrew MD R 53.1 Weakness Office Visit 10/13/2020 2:06a [facility] Neurology Cameron Andrew MD R 53.1 Weakness Office Visit 10/12/2020 8:35a [facility] Neurology Avel Neal MD R53 .1 [...] 3:00 pm - Avel Neal MD at [facility] Neurology 10/24/2020 - Avel Neal MD* [...]
--- OUTSIDE RECORDS SUMMARY | 2020-12-06 09:50 | CCD | Continuity of Care Document ---
Author Author Karma MILLS Organization Unknown Address [address] [address] Phone [phone] Problems Description No Information Available Social History Type Date Description Comments Sex Unknown Allergies and adverse reactions Description No Information Available Medications Description No Information Available Immunizations Description No Information Available Vital Signs Description No Information Available Results Description No Information Available Procedures Date Code Description Status 11/23/2020 99882 Magnetic Resonance Angiography N larry W/O Contrast Materials Completed 11/23/2020 18181 Magnetic Resonance Angiography N larry W/O Contrast Materials Completed 11/23/2020 27664 Magnetic Resonance Angiogtaphy H ead W/O Contrast Material(S) Completed 11/23/2020 52630 Magnetic Resonance Angiogtaphy H ead W/O Contrast Material(S) Completed 11/22/2020 22162 Office/Outpatient Established Mo d MDM 30-39 Min Completed 08/13/2020 14824 Office/Outpatient Established Mo d MDM 30-39 Min Completed 07/20/2020 35007 MRI Brain W/O Contrast Completed 07/20/2020 42805 MRI Brain W/O Contrast Completed 06/12/2020 34713 EEG Recording Awake & Asleep Com pleted 06/12/2020 65649 EEG Recording Awake & Asleep Com pleted 06/01/2020 26073 Sympathetic Skin Responses Compl eted 06/01/2020 68822 Test Autonomic Nervous System, C ardiovagal Innervation Completed 05/31/2020 21335 Office Consultation Level 4 Comp leted Medical Devices Description No Information Available Encounters Type Date Location Provider Dx Diagnosis Office Visit 11/22/2020 10:00a Main office - [place] Hu M.D. R42 Dizziness and giddiness M62.81 Muscle weakness (generalized ) G70.00 Myasthenia gravis without (a cute) exacerbation R41.82 Altered mental status, unspe cified Office Visit 08/13/2020 7:30a Main office - [place] Hu M.D. R42 Dizziness and giddiness I95.1 Orthostatic hypotension G44.209 Tension-type headache, unspe cified, not intractable R41.82 Altered mental status, unspe cified Office Visit 05/31/2020 12:30p Main office - [place] Katlyn Hu M.D. 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 05/31/2020 R41.82 Altered mental status, unspecifi ed Katlyn Hu M.D. 05/31/2020 R26.89 Other abnormalities of gait and mobility Katlyn Hu M.D. Plan of Treatment Future Appointment(s):* 01/31/2021 8:15 am - Katlyn Hu M.D. at [facility] * 01/22/2021 9:45 am - EEG at [facility] Functional Status Description No Information Available Mental Status Description No Information Available Referrals Refer to Dr Reason for Referral Status Appt Date Created Carol Shanks M.D. Created [facility] [address] [place] [address] [phone] Carol Shanks M.D. Created [facility] [address] [place] [address] [phone]
--- OUTSIDE RECORDS SUMMARY | 2020-12-06 09:50 | CCD | Continuity of Care Document ---
Author Author Holter/Event/Telemetry, Maru Shahid Organization Unknown Address [address] [place] [address], [place] [address] Phone [phone] Care Team Providers Care Supervisor Case Loading Name Role Phone JacyRachel AUTM [phone] Satish Nielsen MD AUTM [phone] Avel Neal MD AUTM [phone] Problems Active Problems Provider Date Precordial pain Ever Bisohp MD Onset: 12/14/2019 Heart murmur Ever Bishop MD Onset: 12/14/2019 Morbid obesity Ever Bishop MD Onset: 12/14/2019 Dietary management surveillance Ever Bishop MD Onset: 12/14/2019 Electrocardiogram abnormal Ever Bishop MD Onset: 12/13 Social History Type Date Description Comments Sex Unknown ETOH Use Occasionally consumes alcohol Tobacco Use Start: Unknown Patient has never smoked Smoking Status Reviewed: 09/28/20 Patient has never smoked Exercise Type/Frequency Walks 5 times a week 30 minutes daily Exercise Type/Frequency Does housework daily Exercise Limitations Back Pain Allergies, Adverse Reactions, Alerts Description No Known Drug Allergies Medications Active Medications SIG Qnty Indications Ordering Provide r Date Omeprazole 20mg Capsules DR 1 by mouth every day Unknown 09/27/2020 Famotidine 20mg Tablets 1 tab by mouth every day at bedtime Unknown 12/13/2019 Immunizations Description No Information Available Vital Signs Date Vital Result Comment 09/28/2020 1:35pm Weight 274.00 lb Height 67 inches 5'7" BMI (Body Mass Index) 42.9 kg/m2 BP Systolic Sitting 124 mmHg Ra, large cuff BP Diastolic Sitting 76 mmHg Ra, large cuff 12/14/2019 10:09am Weight 285.00 lb Home Weight 285lb home weight Height 67 inches 5'7" BMI (Body Mass Index) 44.6 kg/m2 Heart Rate 78 /min BP Systolic Sitting 134 mmHg Omron, large cuff/Ra BP Diastolic Sitting 93 mmHg Omron, large cuff/R a Results Test Acquired Date Facility Test Result H/L Range Note CBC without Differential 10/11/2020 Patient's [facility] e (315)- - White Blood Count 9.8 4.3-10.9 Red Blood Count 4.26 Low 4.70-6.20 Platelets 335 130-400 Hemoglobin 12.6 Low 13.0-17.0 Hematocrit 37.4 Low 39.0-50.0 [facility] 10/11/2020 [facility] (315)- - Albumin Serum/Plasma 4.5 Alt - SGPT 10 Calcium Ser/Plasma Mass/Vol 9.9 Carbon Dioxide Ser/Plasm 25 Chloride Serum/Plasma 105 Alkaline Phosphatase 72 Potassium 4.0 Protein Total 7.4 Sodium 140 Ast - Sgot 14 BUN - Urea Nitrogen 10 Glucose 87 70-100 Creatinine For GFR 0.6 Laboratory test finding 10/11/2020 [facility] (315)- - Troponin <0.01 Magnesium Level 1.6 Thyroid Stimulating Hormone 0.55 CBC without Differential 09/15/2020 Patient's [facility] e (315)- - White Blood Count 12.3 High 4.2-11.0 Red Blood Count 4.33 4.20-5.40 Platelets 288 130-400 Hemoglobin 12.8 12.0-16.0 Hematocrit 38.2 37.0-47.0 [facility] 09/15/2020 [facility] (315)- - Albumin Serum/Plasma 3.9 Alt - SGPT 12 Calcium Ser/Plasma Mass/Vol 9.1 Carbon Dioxide Ser/Plasm 27 Chloride Serum/Plasma 102 Alkaline Phosphatase 72 Potassium 4.2 Protein Total 7.2 Sodium 136 Ast - Sgot 15 BUN - Urea Nitrogen 7 Glucose 95 70-99 Creatinine For GFR 0.7 Liver Function Test/ Liver Hep 09/03/2020 [facility] - not interfaced (315)- - Ast/Sgot 18 15-37 Alt/SGPT 24 30-65 Alk Phos 67 50-136 Albumin 3.7 3.2-5.2 Total Bilirubin 0.2 0.0-1.0 Total Protein 7.6 6.4-8.2 A/G Ratio -- Low 1.00-1.93 CBC without Differential 09/03/2020 [facility] - not inter faced (315)- - White Blood Count 11.5 High 4.0-10.0 Red Blood Count 4.76 4.00-5.40 Platelets 281 150-450 Hemoglobin 14.0 Hematocrit 42.5 CPK & CPK MB 09/03/2020 [facility] - not interfaced (315)- - CPK 90 CPK-MB <1.0 Laboratory test finding 09/03/2020 [facility] - not interf aced (315)- - Troponin <0.02 Procedures Date Code Description Status 10/30/2020 04908 Holter Monitor MD Review And Rep ort Completed 10/30/2020 34004 Holter Hookup,Recording,Disconne ct Completed 09/28/2020 22598 Office/Outpatient Established Mo d MDM 30-39 Min Completed 09/28/2020 57881 ECG 12-Lead Completed Medical Devices Description No Information Available Encounters Type Date Location Provider Dx Diagnosis Office Visit 09/28/2020 1:30p Main Office CAREY Vargas R07 .2 Precordial pain R01.1 Cardiac murmur, unspecified R94.31 Abnormal electrocardiogram [ ECG] [EKG] E66.01 Morbid (severe) obesity due to excess calories Z71.3 Dietary counseling and surve illance Assessments Date Code Description Provider 10/30/2020 R00.2 Palpitations Holter/Event/Tel emetry 09/28/2020 R07.2 Precordial pain CAREY Ann Cha, se 09/28/2020 R01.1 Cardiac murmur, unspecified CAREY Rizo 09/28/2020 R94.31 Abnormal electrocardiogram [ECG] [EKG] CAREY Vargas 09/28/2020 E66.01 Morbid (severe) obesity due to e xcess calories CAREY Vargas 09/28/2020 Z71.3 Dietary counseling and surveilla nce CAREY Vargas Plan of Treatment Future Appointment(s):* 09/30/2021 2:30 pm - CAREY Vargas at Main Office 09/28/2020 - CAREY Vargas* R07.2 Precordial pain* Recommendations:* Patient agreeable to contact us if the pain reoccurs * R01.1 Cardiac murmur, unspecified* Recommendations:* No further evaluation is needed at this time * R94.31 Abnormal electrocardiogram [ECG] [EKG]* Recommendations:* No further evaluation is needed at this time. * E66.01 Morbid (severe) obesity due to excess calories * Z71.3 Dietary counseling and surveillance* Recommendations:* Recommended for patient to follow a more whole food diet. Advised patient to avoid overly processed foods and packaged foods. Advised patient to avoid sodas, juices and other liquid calories. Recommended at least 30 minutes of exercise 3 days a week. * All * Follow up:* Follow up in 1 year Functional Status Functional Condition Comment Date Status Independent with all ADL's Activ e Mental Status Description No Information Available Referrals Description No Information Available
--- OUTSIDE RECORDS SUMMARY | 2020-12-06 09:50 | CCD | Continuity of Care Document ---
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 Name Role Phone No PCP AUTM Unavailable Problems Description No Information Available Social History Type Date Description Comments Sex Unknown ETOH Use Never used alcohol Tobacco Use Start: Unknown Patient has never smoked (pipe, cigarette, cigar) Recreational Drug Use Never Used Drugs Allergies, Adverse Reactions, Alerts Description No Known Drug Allergies Medications Active Medications SIG Qnty Indications Ordering Provide r Date Pyridostigmine [place] 60mg Tablets Yash Taylor MD PHD Fluticasone Propionate 50mcg/Act Suspension Leeanna Harris Multi Vitamin And Minerals Tablet s 1 by mouth every day Unknown Immunizations Description No Information Available Vital Signs Description No Information Available Results Test Acquired Date Facility Test Result H/L Range Note Cbcadp 10/24/2020 [facility] [address] [place] [address] [phone] WBC. 10.58 x10E3/uL 4.2-12.0 RBC 4.24 x10E6/uL 3.9-5.4 HGB 12.8 g/dL 12.0-16.0 HCT 37.8 % 36-47 MCV 89.2 fL 80-98 MCH 30.1 pg 27-33 MCHC 33.7 g/dL 32-36 RDW 13.1 % 11.2-15.2 PLT 281 x10E3/uL 135-420 MPV 8.5 fL 7.0-12.3 % Katerine 75.9 % 41.0-80.0 %Lym 18.6 % 10.0-45.2 %Hood 4.1 % 2.0-13.0 %Eos 1.0 % 0.0-8.0 %Baso 0.4 % 0.0-3.0 Neut 8.0 x10E3/uL 2.0-8.1 Lymp 2.0 x10E3/uL 0.6-3.1 Hood 0.4 x10E3/uL 0.0-1.0 Eos 0.1 x10E3/uL 0.0-0.6 Baso 0.0 x10E3/uL 0.0-0.2 CMP-Male 10/24/2020 [facility] [address] [place] [address] [place] [address] [phone] Glucose 86 mg/dL 74-106 1 BUN 9 [...] 9.6 mg/dL 8.9-10.5 Laboratory test finding 10/24/2020 [facility] [address] [facility] [place] [address] [phone] CPK 52 U/L 26-174 5 CRP 1.6 mg/dL High 0-1.0 6 WSR 10 mm/hr 0-20 7 Miscellaneous ok - 8 L-Anca Profile 10/24/2020 [facility] [address] [place] [address] [phone] Anca Screen Negative Negative- 9 Laboratory test finding 10/24/2020 [facility] [address] [place] [address] [phone] Angiotensin Conv Enzyme 21 U/L 9 10 Comments See Note - 11 Interpretation See Note - 12 Methods See Note - 13 References See Note - 14 Sjogren`S AB (SS-A) <1.0 NEG AI <1.0 Neg- 15 Sjogren`S AB (SS-B) <1.0 NEG AI <1.0 Neg- 16 Technical Results See Note - 17 Cheri POSITIVE Negative-Negative 18 Ra 10.6 U/mL 0-13.99 19 Lyme Disease SCR W/RFX 10/24/2020 [facility] [address] [place] [address] [phone] Lyme Disease Screen with Reflex 0.66 0-0.90 20 Laboratory test finding 10/24/2020 [facility] [address] [place] [address] [phone] Venipuncture DONE - 21 Cheri Titer MIXED PATTERNS - 22 1 [place] Diabetes Associatio n (ADA) Recommended Range is 65-99 mg/dL 2 Normal Kidney Function or Mi ld Disease GFR >59 mL/min/1.73m2 Chronic Kidney Disease GFR 15-59 mL/min/1.73m2 Renal Failure GFR <15 mL/min/1.73m2 3 Effective 08/16/2016: Geo[facility] has indicated interference with the drugs sulfasalazine [...] ssb anca lyme parris 7 musk ab cehri ra ssa ssb anca lyme parris 8 musk ab cheri ra ssa ssb anca lyme parris 9 ANCA Screen includes evaluat ion for p-ANCA, [...] (IFA) on HEp-2 cells, may be ordered. 10 musk ab cheri ra ssa ssb anca lyme parris 11 Comments: This result does n ot exclude a diagnosis of Myasthenia Gravis. Recommendations: Health care providers, please contact the [facility] Client Services Department at if you wish to speak with a clinical strategic planning consultant regarding this test result. Other testing [...] studies when performed on limb muscles (4). 12 NEGATIVE This test did not d etect abnormal levels of anti-MuSK antibodies. 13 Detection of antibodies was performed by Radioimmunoassay (MIROSLAVA) methodology. Limitations of analysis: Reagent effectiveness may affect the signal intensity of the response. Although rare, false positive or false negative results may occur. All results should be interpreted in the context of clinical findings, relevant history, and other laboratory data. 14 1. Taina Hart et al. (2005) ELENA 293: 1906-14. (PMID: 80397203) 2. MARIEL Reyes, et al. (2000) [facility] 107: 211-4, 220-2. (PMID: 19918430) 3. Joe S et al. (2014) J Auto immun 52: 90-100. (PMID: 01431304) 4. Dasha Guerrero et al. (2013) Autoimmun Rev 12: 931-5. (PMID: 24283870) This test was developed and its analytical performance characteristics have been determined by [facility] It has not been cleared or approved by the U.S. Food and Drug Administration. This assay has been validated pursuant to the CLIA regulations and is used for clinical purposes. Laboratory oversight provided by Shaan Hunt M.D., Ph.D., CLIA license foster, [facility] (CLIA# [id number]) Testing performed at: [facility] [address] [place] [address] 15 musk ab cheri ra ssa ssb anca lyme parris 16 musk ab cheri ra ssa ssb anca lyme parris 17 Interpretive Result Table INTERPRETIVE RESULT: Negative TEST: anti-MuSK TECHNICAL RESULT: <1:10 REFERENCE RANGE: Negative <1:10, Borderline 1:10, Positive >=1:20 18 titer pending 19 musk ab cheri ra ssa ssb anca lyme parris 20 Normal Range: Less than 0.90 Index Value [...] be collected in 2 to 4 weeks. 21 musk ab cheri ra ssa ssb anca lyme parris 22 HOMOGENEOUS PATTERN DETECTED - TITER 320 SPINDLE PATTERN DETECTED - TITER 320 Procedures Date Code Description Status 10/24/2020 37365 Office/Outpatient Established Mo d MDM 30-39 Min Completed 10/24/2020 65884 Office/Outpatient New Moderate M DM 45-59 Minutes Completed 10/16/2020 60288 Office/Outpatient Established Lo w MDM 20-29 Min Completed 10/15/2020 94925 Office/Outpatient Established Lo w MDM 20-29 Min Completed 10/14/2020 97829 Office/Outpatient Established Lo w MDM 20-29 Min Completed 10/14/2020 08716 Electrocardiogram Interpretation & Report Only Completed 10/13/2020 08437 Office/Outpatient Established SF MDM 10-19 Min Completed 10/12/2020 91270 Office/Outpatient New Moderate M DM 45-59 Minutes Completed Medical Devices Description No Information Available Encounters Type Date Location Provider Dx Diagnosis Office Visit 10/24/2020 11:20a [facility] Avle Neal MD R53 .1 Weakness R20.2 Paresthesia of skin Office Visit 10/16/2020 2:50a [facility] CAREY Hernandez R53.1 Weakness Office Visit 10/15/2020 2:11a [facility] Neurology CAREY Jurado R53.1 Weakness Office Visit 10/14/2020 2:03a [facility] Neurology Cameron Andrew MD R 53.1 Weakness Office Visit 10/13/2020 2:06a [facility] Neurology Cameron Andrew MD R 53.1 Weakness Office Visit 10/12/2020 8:35a [facility] Neurology Avel Neal MD R53 .1 Weakness Assessments Date Code Description Provider 10/24/2020 R53.1 Weakness Avel Neal MD 10/24/2020 R20.2 Paresthesia of skin Avel grissom MD 10/24/2020 R53.1 Weakness Iacny Clinical L abs 10/24/2020 R53.1 Weakness Iacny Clinical L abs 10/16/2020 R53.1 Weakness Denise Hernandez A 10/15/2020 R53.1 Weakness CAREY Jurado 10/14/2020 R53.1 Weakness Cameron jean MD 10/14/2020 R53.1 Weakness Goyo Carter MD 10/14/2020 R20.0 Anesthesia of skin Goyo Carter MD 10/14/2020 R26.2 Difficulty in walking, not elsew here classified Goyo Carter MD 10/14/2020 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 Goyo Carter MD 10/14/2020 R07.89 Other chest pain Maggie Collazo 10/14/2020 I10 Essential (primary) hypertension Goyo Carter MD 10/14/2020 K21.9 Gastro-esophageal reflux disease without esophagitis Goyo Carter MD 10/14/2020 F41.1 Generalized anxiety disorder Ben Carter MD 10/13/2020 R53.1 Weakness Cameron jean MD 10/12/2020 R53.1 Weakness Avel Neal MD Plan of Treatment Future Appointment(s):* 01/14/2021 11:20 am - Avel Neal MD at [facility] Neurology 10/24/2020 - Avel Neal MD* R53.1 Weakness* New Xrays:* MRI Brain W/O Contrast, Ordered: 10/24/20 * MRI Cervical Spine W/O Contrast, Ordered: 10/24/20 * New Orders:* EMG/Nerve Conduction, Scheduled: 12/17/20 * Comments:* Was scheduled for laboratory testing [...]
--- OUTSIDE RECORDS SUMMARY | 2020-12-06 09:50 | CCD | Continuity of Care Document ---
Author Author Karma MILLS Organization Unknown Address [address] [address] Phone [phone] Problems Description No Information Available Social History Type Date Description Comments Sex Unknown Allergies and adverse reactions Description No Information Available Medications Description No Information Available Immunizations Description No Information Available Vital Signs Description No Information Available Results Description No Information Available Procedures Date Code Description Status 11/22/2020 39432 Office/Outpatient Established Mo d MDM 30-39 Min Completed 08/13/2020 67776 Office/Outpatient Established Mo d MDM 30-39 Min Completed 07/20/2020 58801 MRI Brain W/O Contrast Completed 07/20/2020 51452 MRI Brain W/O Contrast Completed 06/12/2020 96574 EEG Recording Awake & Asleep Com pleted 06/12/2020 50027 EEG Recording Awake & Asleep Com pleted 06/01/2020 74346 Sympathetic Skin Responses Compl eted 06/01/2020 15307 Test Autonomic Nervous System, C ardiovagal Innervation Completed 05/31/2020 19115 Office Consultation Level 4 Comp leted Medical Devices Description No Information Available Encounters Type Date Location Provider Dx Diagnosis Office Visit 11/22/2020 10:00a Main [facility] [place] [facility] M.D. R42 Dizziness and giddiness M62.81 Muscle weakness (generalized ) G70.00 Myasthenia gravis without (a cute) exacerbation R41.82 Altered mental status, unspe cified Office Visit 08/13/2020 7:30a Main office - [place] Hu M.D. R42 Dizziness and giddiness I95.1 Orthostatic hypotension G44.209 Tension-type headache, unspe cified, not intractable R41.82 Altered mental status, unspe cified Office Visit 05/31/2020 12:30p Main office - [place] Katlyn Hu M.D. 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 at [facility] * 01/22/2021 9:45 am - EEG at [facility] Functional Status Description No Information Available Mental Status Description No Information Available Referrals Refer to Reason for Referral Status Appt Date Carol Shanks M.D. Created [facility] [address] [place] [address] [phone] Carol Shanks M.D. Created [facility] [address] [place] [address] [phone]
--- OUTSIDE RECORDS SUMMARY | 2020-12-06 09:50 | CCD | Continuity of Care Document ---
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 Role Phone No PCP AUTM Unavailable Problems Description No Information Available Social History Type Date Description Comments Sex Unknown ETOH Use Never used alcohol Tobacco Use Start: Unknown Patient has never smoked (pipe, cigarette, cigar) Recreational Drug Use Never Used Drugs Allergies, Adverse Reactions, Alerts Description No Known Drug Allergies Medications Active Medications SIG Qnty Indications Ordering Provide r Date Pyridostigmine [place] 60mg Tablets Yash Taylor MD PHD Fluticasone Propionate 50mcg/Act Suspension Steven Leeanna Multi Vitamin And Minerals Tablet s 1 by mouth every day Unknown Immunizations Description No Information Available Vital Signs Description No Information Available Procedures Date Code Description Status 10/24/2020 77217 Office/Outpatient New Moderate M DM 45-59 Minutes Completed 10/16/2020 64428 Office/Outpatient Established Lo w MDM 20-29 Min Completed 10/15/2020 52237 Office/Outpatient Established Lo w MDM 20-29 Min Completed 10/14/2020 38263 Office/Outpatient Established Lo w MDM 20-29 Min Completed 10/14/2020 13449 Electrocardiogram Interpretation & Report Only Completed 10/13/2020 70247 Office/Outpatient Established SF MDM 10-19 Min Completed 10/12/2020 61330 Office/Outpatient New Moderate M DM 45-59 Minutes Completed Medical Devices Description No Information Available Encounters Type Date Location Provider Dx Diagnosis Office Visit 10/24/2020 11:20a [facility] Avel Neal MD R53 .1 Weakness R20.2 Paresthesia of skin Office Visit 10/16/2020 2:50a [facility] CAREY Hernandez R53.1 Weakness Office Visit 10/15/2020 2:11a [facility] Neurology CAREY Jurado R53.1 Weakness Office Visit 10/14/2020 2:03a [facility] Neurology Cameron Andrew MD R 53.1 Weakness Office Visit 10/13/2020 2:06a [facility] Neurology Cameron Andrew MD R 53.1 Weakness Office Visit 10/12/2020 8:35a [facility] Neurology Avel Neal MD R53 .1 Weakness Assessments Date Code Description Provider 10/24/2020 R53.1 Weakness Avel Neal MD 10/24/2020 R20.2 Paresthesia of skin Avel grissom MD 10/16/2020 R53.1 Weakness Denise Hernandez 10/15/2020 R53.1 Weakness CAREY Jurado 10/14/2020 R53.1 Weakness Cameron jean MD 10/14/2020 R53.1 Weakness Goyo Mcgrath MD 10/14/2020 R20.0 Anesthesia of skin Goyo Mcgrath MD 10/14/2020 R26.2 Difficulty in walking, not elsew here classified Goyo Mcgrath MD 10/14/2020 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
--- OUTSIDE RECORDS SUMMARY | 2020-12-06 09:50 | CCD | Continuity of Care Document ---
Author Author Karma HU M.D. Organization Unknown Address [address] [place] [address] Phone [phone] Problems Description No Information Available Social History Type Date Description Comments Sex Unknown Allergies and adverse reactions Description No Information Available Medications Description No Information Available Immunizations Description No Information Available Vital Signs Description No Information Available Results Description No Information Available Procedures Date Code Description Status 08/13/2020 12832 Office/Outpatient Established Mo d MDM 30-39 Min Completed 07/20/2020 06037 MRI Brain W/O Contrast Completed 07/20/2020 53364 MRI Brain W/O Contrast Completed 06/12/2020 50412 EEG Recording Awake & Asleep Com pleted 06/12/2020 19443 EEG Recording Awake & Asleep Com pleted 06/01/2020 41021 Sympathetic Skin Responses Compl eted 06/01/2020 79926 Test Autonomic Nervous System, C ardiovagal Innervation Completed 05/31/2020 77715 Office Consultation Level 4 Comp leted Medical Devices Description No Information Available Encounters Type Date Location Provider Dx Diagnosis Office Visit 08/13/2020 7:30a Main office - [place] Hu M.D. R42 Dizziness and giddiness I95.1 Orthostatic hypotension G44.209 Tension-type headache, unspe cified, not intractable R41.82 Altered mental status, unspe cified Office Visit 05/31/2020 12:30p Main office - [place] Hu M.D. 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 R42 Dizziness and giddiness G44.209 Tension-type headache, unspe cified, not intractable R41.82 Altered mental status, unspe cified R26.89 Other abnormalities of gait and mobility Assessments Date Code Description Provider 08/13/2020 R42 Dizziness and giddiness Katlyn pinzonNazanin briones 08/13/2020 I95.1 Orthostatic hypotension Katlyn pinzonNazanin briones 08/13/2020 G44.209 Tension-type headache, unspecifi ed, not intractable Katlyn HernandezMaggie briones.DTiffani 08/13/2020 R41.82 Altered mental status, unspecifi ed Katlyn Maggie Hu.DTiffani 07/20/2020 R41.82 Altered mental status, unspecifi ed Kristin Maggie Hu.DTiffani 07/20/2020 R41.82 Altered mental status, unspecifi ed MRI 07/20/2020 I95.1 Orthostatic hypotension Kristin Amelia duong M.D. 07/20/2020 I95.1 Orthostatic hypotension MRI 07/20/2020 R26.89 Other abnormalities of gait and mobility Symone GuanDTiffani 07/20/2020 R26.89 Other abnormalities of gait and mobility MRI 06/12/2020 R41.82 Altered mental status, unspecifi ed Katlyn HernandezMaggie briones.DTiffani 06/12/2020 R41.82 Altered mental status, unspecifi ed EEG 06/12/2020 R25.8 Other abnormal involuntary movem ents Symone MeyerDTiffani 06/12/2020 R25.8 Other abnormal involuntary movem ents EEG 06/01/2020 I95.1 Orthostatic hypotension Katlyn L Symone bellamyDTiffani 06/01/2020 I95.1 Orthostatic hypotension Ans/VS 05/31/2020 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 05/31/2020 R42 Dizziness and giddiness Katlyn Montgomery Nazanin bellamy 05/31/2020 G44.209 Tension-type headache, unspecifi ed, not intractable Katlyn Fritz, M.DTiffani 05/31/2020 R41.82 Altered mental status, unspecifi ed KatlynMaggie Riggs.DTiffani 05/31/2020 R26.89 Other abnormalities of gait and mobility Katlyn Hu M.D. Plan of Treatment No Information Available Functional Status Description No Information Available Mental Status Description No Information Available Referrals Refer to Dr Reason for Referral Status Appt Date Carol Shanks M.D. Created [facility] [address] [place] [address] [phone] Carol Shanks M.D. Created [facility] [address] [place] [address] [phone]
--- OUTSIDE RECORDS SUMMARY | 2020-12-06 09:50 | CCD | Continuity of Care Document ---
Author Author Karma NEAL MD Organization Unknown Address [facility] [address], [address] [place] [address] Phone [phone] Care Team Providers Care Manager Intelligence Name Role Phone No PCP AUTM Unavailable Problems Description No Information Available Social History Type Date Description Comments Sex Unknown ETOH Use Never used alcohol Tobacco Use Start: Unknown Patient has never smoked (pipe, cigarette, cigar) Recreational Drug Use Never Used Drugs Allergies, Adverse Reactions, Alerts Description No Known Drug Allergies Medications Active Medications SIG Qnty Indications Ordering Provide r Date Pyridostigmine [place] 60mg Tablets Yash Taylor MD PHD Fluticasone Propionate 50mcg/Act Suspension Leeanna Harris Multi Vitamin And Minerals Tablet s 1 by mouth every day Unknown Immunizations Description No Information Available Vital Signs Description No Information Available Procedures Date Code Description Status 10/24/2020 82537 Office/Outpatient New Moderate M DM 45-59 Minutes Completed 10/16/2020 78210 Office/Outpatient Established Lo w MDM 20-29 Min Completed 10/15/2020 15013 Office/Outpatient Established Lo w MDM 20-29 Min Completed 10/14/2020 62127 Office/Outpatient Established Lo w MDM 20-29 Min Completed 10/13/2020 70001 Office/Outpatient Established SF MDM 10-19 Min Completed 10/12/2020 62672 Office/Outpatient New Moderate M DM 45-59 Minutes Completed Medical Devices Description No Information Available Encounters Type Date Location Provider Dx Diagnosis Office Visit 10/24/2020 11:20a [facility] Avel Neal MD R53 .1 Weakness R20.2 Paresthesia of skin Office Visit 10/16/2020 2:50a [facility] CAREY Hernandez R53.1 Weakness Office Visit 10/15/2020 2:11a [facility] Neurology CAREY Jurado R53.1 Weakness Office Visit 10/14/2020 2:03a [facility] Neurology Cameron Andrwe MD R 53.1 Weakness Office Visit 10/13/2020 2:06a [facility] Neurology Cameron Andrew MD R 53.1 Weakness Office Visit 10/12/2020 8:35a [facility] Neurology Avel Neal MD R53 .1 Weakness [...] 3:00 pm - Avel Neal MD at [facility] Neurology 10/24/2020 - Avel Neal MD* R53.1 [...]
--- OUTSIDE RECORDS SUMMARY | 2020-12-06 09:51 | CCD | Continuity of Care Document ---
Author Author Karma EVANS MD Organization Unknown Address [address] [place] [address] [place] [address] Phone [phone] Problems Description No Information Available Social History Type Date Description Comments Sex Unknown Allergies, Adverse Reactions, Alerts Description No Information Available Medications Description No Information Available Immunizations Description No Information Available Vital Signs Description No Information Available Results Description No Information Available Procedures Date Code Description Status 10/15/2020 74977 Office/Outpatient Established Lo w MDM 20-29 Min Completed 10/14/2020 70887 Office/Outpatient Established Lo w MDM 20-29 Min Completed 10/13/2020 83893 Office/Outpatient Established SF MDM 10-19 Min Completed 10/12/2020 24835 Office/Outpatient New Moderate M DM 45-59 Minutes Completed Medical Devices Description No Information Available Encounters Type Date Location Provider Dx Diagnosis Office Visit 10/15/2020 2:11a [facility] CAREY Jurado R53.1 Weakness Office Visit 10/14/2020 2:03a [facility] Cameron Andrew MD R 53.1 Weakness Office Visit 10/13/2020 2:06a [facility] Cameron Andrew MD R 53.1 Weakness Office Visit 10/12/2020 8:35a [facility] Avel Neal MD R53 .1 Weakness Assessments Date Code Description Provider 10/15/2020 R53.1 Weakness CAREY Jurado 10/14/2020 R53.1 Weakness Cameron jean MD 10/13/2020 R53.1 Weakness Cameron jean MD 10/12/2020 R53.1 Weakness Avel Neal MD Plan of Treatment Future Appointment(s):* 10/24/2020 11:20 am - Avel Neal MD at [facility] Neurology Functional Status Description No Information Available Mental Status Description No Information Available Referrals Description No Information Available
--- OUTSIDE RECORDS SUMMARY | 2020-12-06 09:51 | CCD | Continuity of Care Document ---
Author Author Karma BENNETT Organization Unknown Address [address], [address] [place] [address] Phone [phone] Problems Description No Information Available Social History Type Date Description Comments Sex Unknown Allergies, Adverse Reactions, Alerts Description No Information Available Medications Description No Information Available Immunizations Description No Information Available Vital Signs Description No Information Available Results Description No Information Available Procedures Date Code Description Status 10/16/2020 93183 Office/Outpatient Established Lo w MDM 20-29 Min Completed 10/15/2020 76247 Office/Outpatient Established Lo w MDM 20-29 Min Completed 10/14/2020 49612 Office/Outpatient Established Lo w MDM 20-29 Min Completed 10/13/2020 78736 Office/Outpatient Established SF MDM 10-19 Min Completed 10/12/2020 02557 Office/Outpatient New Moderate M DM 45-59 Minutes Completed Medical Devices Description No Information Available Encounters Type Date Location Provider Dx Diagnosis Office Visit 10/16/2020 2:50a [facility] CAREY Hernandez R53.1 Weakness Office Visit 10/15/2020 2:11a [facility] CAREY Jurado R53.1 Weakness Office Visit 10/14/2020 2:03a [facility] Cameron Andrew MD R 53.1 Weakness Office Visit 10/13/2020 2:06a [facility] Cameron Andrew MD R 53.1 Weakness Office Visit 10/12/2020 8:35a [facility] Neu[facility] Avel Neal MD R53 .1 Weakness Assessments Date Code Description Provider 10/16/2020 R53.1 Weakness Denise Hernandez 10/15/2020 R53.1 Weakness CAREY Jurado 10/14/2020 R53.1 Weakness Cameron jean MD 10/13/2020 R53.1 Weakness Cameron jean MD 10/12/2020 R53.1 Weakness Avel Neal MD Plan of Treatment Future Appointment(s):* 10/24/2020 11:20 am - Avel Neal MD at [facility] Neurology Functional Status Description No Information Available Mental Status Description No Information Available Referrals Description No Information Available
--- OUTSIDE RECORDS SUMMARY | 2020-12-06 09:51 | CCD | Continuity of Care Document ---
Author Author Karma NEAL MD Organization Unknown Address [facility] [address], [address] [place] [address] Phone [phone] Care Team Providers Care Stranner Name Role Phone No PCP AUTM Unavailable Problems Description No Information Available Social History Type Date Description Comments Sex Unknown ETOH Use Never used alcohol Tobacco Use Start: Unknown Patient has never smoked (pipe, cigarette, cigar) Recreational Drug Use Never Used Drugs Allergies, Adverse Reactions, Alerts Description No Known Drug Allergies Medications Active Medications SIG Qnty Indications Ordering Provide r Date Pyridostigmine [place] 60mg Tablets Yash Taylor MD PHD Fluticasone Propionate 50mcg/Act Suspension Leeanna Harris Multi Vitamin And Minerals Tablet s 1 by mouth every day Unknown Immunizations Description No Information Available Vital Signs Description No Information Available Procedures Date Code Description Status 10/24/2020 10871 Office/Outpatient New Moderate M DM 45-59 Minutes Completed 10/16/2020 71938 Office/Outpatient Established Lo w MDM 20-29 Min Completed 10/15/2020 69330 Office/Outpatient Established Lo w MDM 20-29 Min Completed 10/14/2020 57816 Office/Outpatient Established Lo w MDM 20-29 Min Completed 10/13/2020 52799 Office/Outpatient Established SF MDM 10-19 Min Completed 10/12/2020 24734 Office/Outpatient New Moderate M DM 45-59 Minutes Completed Medical Devices Description No Information Available Encounters Type Date Location Provider Dx Diagnosis Office Visit 10/24/2020 11:20a [facility] Neurology Avel Neal MD R53 .1 Weakness R20.2 Paresthesia of skin Office Visit 10/16/2020 2:50a [facility] Neu[facility] CAREY Hernandez R53.1 Weakness Office Visit 10/15/2020 2:11a [facility] Neurology CAREY Jurado R53.1 Weakness Office Visit 10/14/2020 2:03a [facility] Neurology Cameron Andrew MD R 53.1 Weakness Office Visit 10/13/2020 2:06a [facility] Neurology Cameron Andrew MD R 53.1 Weakness Office Visit 10/12/2020 8:35a [facility] Neurology Avel Neal MD R53 .1 Weakness [...] 3:00 pm - Avel Neal MD at [facility] Neurology 10/24/2020 - Avel Neal MD* R53.1 [...]
--- OUTSIDE RECORDS SUMMARY | 2020-12-06 09:51 | CCD | Continuity of Care Document ---
Author Author Karma RAMIRES PA Organization Unknown Address [address] [place] [address] [place] [address] Phone [phone] Care Team Providers Care Visual Basic Programmer Name Role Phone Donny Figueroa MD AUTM Unavailable [facility] AUTM [phone] AUTM [phone] Problems Description No Information Available Social History Type Date Description Comments Sex Unknown ETOH Use Occasionally consumes alcohol Tobacco Use Start: Unknown Patient has never smoked Smoking Status Reviewed: 10/08/20 Patient has never smoked Allergies, Adverse Reactions, Alerts Description No Known Drug Allergies Medications Active Medications SIG Qnty Indications Ordering Provide r Date Omeprazole Unknown Immunizations Description No Information Available Vital Signs Date Vital Result Comment 10/08/2020 1:34pm BP Systolic 145 mmHg BP Diastolic 90 mmHg Heart Rate 84 /min Respiratory Rate 18 /min O2 % BldC Oximetry 98 % Body Temperature 97.8 F Weight 270.00 lb Height 66 inches 5'6" BMI (Body Mass Index) 43.6 kg/m2 Pain Level 6 03/15/2020 4:58pm BP Systolic 140 mmHg BP Diastolic 89 mmHg Heart Rate 92 /min Respiratory Rate 17 /min O2 % BldC Oximetry 99 % Body Temperature 98.4 F Weight 270.00 lb Height 67 inches 5'7" BMI (Body Mass Index) 42.3 kg/m2 Pain Level 6 Results Test Acquired Date Facility Test Result H/L Range Note CBC With Differential 10/08/2020 [facility] [address] [place] [address] [phone] White Blood Count 11.6 10 High 4.0-10.0 1 Red Blood Count 4.47 10 Normal 4.00-5.40 Hemoglobin 12.8 g/dL Normal 12.0-15.5 Hematocrit 39.4 % Normal 36.0-47.0 Mean Corpuscular Volume 88.1 fl Normal 80.0-96.0 Mean Corpuscular Hemoglobin 28.6 pg Normal 27.0-33.0 Mean Corpuscular HGB Conc 32.5 g/dL Normal 32.0-36.5 Red Cell Distribution Width 12.9 % Normal 11.5-14.5 Platelet Count, Automated 344 10 Normal 150-450 Neutrophils % 77.8 % High 36.0-66.0 Lymph % 14.3 % Low 24.0-44.0 [place] % 6.2 % Normal 2.0-8.0 Eos % 0.6 % Normal 0.0-3.0 Baso % 0.6 % Normal 0.0-1.0 Immature Granulocyte % 0.5 % Normal 0-3.0 Nucleated Red Blood Cell % 0.0 % Normal 0-0 Neutrophils # 9.1 10 High 1.5-8.5 Lymph # 1.7 10 Normal 1.5-5.0 [place] # 0.7 10 Normal 0.0-0.8 Eos # 0.1 10 Normal 0.0-0.5 Baso # 0.1 10 Normal 0.0-0.2 Laboratory test finding 10/08/[address] [id number] [phone] CPK Creatine Phosphokinase 74 U/L Normal 26-19 2 Comprehensive Metabolic Profil 10/08/[address] 9279082 [phone] Glucose, Fasting 79 mg/dL Normal 70-100 Blood Urea Nitrogen 8 mg/dL Normal 7-18 Creatinine For GFR 0.76 mg/dL Normal 0.55-1.30 Glomerular Filtration Rate > 60.0 Normal >60 2 Sodium Level 138 mEq/L Normal 136-145 Potassium Serum 4.1 mEq/L Normal 3.5-5.1 Chloride Level 104 mEq/L Normal 98-107 Carbon Dioxide Level 27 mEq/L Normal 21-32 Anion Gap 7 mEq/L Low 8-16 Calcium Level 9.4 mg/dL Normal 8.5-10.1 Ast/Sgot 14 U/L Normal 7-37 Alt/SGPT 20 U/L Normal 12-78 Alkaline Phosphatase 76 U/L Normal 45-117 Bilirubin,Total 0.7 mg/dL Normal 0.2-1.0 Total Protein 7.7 GM/DL Normal 6.4-8.2 Albumin 3.8 GM/DL Normal 3.2-5.2 Albumin/Globulin Ratio 1.0 Low 1.2-2.2 Laboratory test finding 10/08/2020 [place] [address] [phone] C Reactive Protein Quantitativ 1.49 mg/dL High 0 .00-0.30 Erythrocyte Sedimentation Rate 35 mm/hr High 0-20 Lyme Disease SCRN With Confirm 10/08/[address] [address] [phone] Lyme Disease IgG/IgM Antibodie <0.91 ISR Normal 0 .00-0.90 3 Lyme Disease IgM Ab Quantitati <0.80 index Normal 0.00-0.79 4 Laboratory test finding 10/08/[address] [address] [phone] Thyroid Stimulating Hormone 0.904 uIU/ML Normal 0. 358-3.740 1 pending Lyme Titer 2 Units are mL/min/1.73 m2 Chronic Kidney Disease Staging per NKF: Stage I & II GFR >=60 Normal to Mildly Decreased Stage III GFR 30-59 Moderately Decreased Stage IV GFR 15-29 Severely Decreased Stage V GFR <15 Very Little GFR Left ESRD GFR <15 on GLASS CUTTER 3 Negative <0.91 Equivocal 0.91 - 1.09 Positive >1.09 4 Negative <0.80 Equivocal 0.80 - 1.19 Positive >1.19 . IgM levels may peak at 3-6 weeks post infection, then gradually decline. Performed at: RN - [facility] [address] [id number] Dye Automation Operator: Yoli Priest MD, Phone: [phone] Procedures Date Code Description Status 10/08/2020 74041 Office/Outpatient Established Mo d MDM 30-39 Min Completed Medical Devices Description No Information Available Encounters Type Date Location Provider Dx Diagnosis Office Visit 10/08/2020 3:10p Main Office CAREY Do M79.10 Myalgia, unspecified site M62.81 Muscle weakness (generalized ) Z20.828 Contact w and exposure to ot h viral communicable diseases Assessments Date Code Description Provider 10/08/2020 M79.10 Myalgia, unspecified site CAREY Farooq 10/08/2020 M62.81 Muscle weakness (generalized) Re CAREY Patiño 10/08/2020 Z20.828 Contact with and (taylor spected) exposure to other viral communicable diseases CAREY Do 04/24/2020 Z20.828 Contact with and (taylor spected) exposure to other viral communicable diseases CAREY Richards Plan of Treatment No Information Available Functional Status Description No Information Available Mental Status Description No Information Available Referrals Refer to Reason for Referral Status Appt Date Mendy Ramires PA Created [address] [place] [address] [phone] Azael Azul PA Created [facility] [address] [place] [address] [phone]
--- OUTSIDE RECORDS SUMMARY | 2020-12-06 09:51 | CCD ---
Continuity of Care Document (CCD) Created on: 10/24/2020 Karma Singer External Reference #: [id number] : [id number] Sex: Female Author Author Karma NEAL MD Organization Unknown Address [facility] [address], [address] [place] [address] Phone [phone] Care Team Providers Care Metal Bonding Press Operator Name Role Phone No PCP AUTM Unavailable Problems Description No Information Available Social History Type Date Description Comments Sex Unknown ETOH Use Never used alcohol Tobacco Use Start: Unknown Patient has never smoked (pipe, cigarette, cigar) Recreational Drug Use Never Used Drugs Allergies, Adverse Reactions, Alerts Description No Known Drug Allergies Medications Active Medications SIG Qnty Indications Ordering Provide r Date Pyridostigmine [place] 60mg Tablets Yash Taylor MD PHD Fluticasone Propionate 50mcg/Act Suspension Leeanna Harris Multi Vitamin And Minerals Tablet s 1 by mouth every day Unknown Immunizations Description No Information Available Vital Signs Description No Information Available Procedures Date Code Description Status 10/24/2020 44551 Office/Outpatient New Moderate M DM 45-59 Minutes Completed 10/16/2020 22607 Office/Outpatient Established Lo w MDM 20-29 Min Completed 10/15/2020 16677 Office/Outpatient Established Lo w MDM 20-29 Min Completed 10/14/2020 12736 Office/Outpatient Established Lo w MDM 20-29 Min Completed 10/13/2020 13018 Office/Outpatient Established SF MDM 10-19 Min Completed 10/12/2020 47951 Office/Outpatient New Moderate M DM 45-59 Minutes Completed Medical Devices Description No Information Available Encounters Type Date Location Provider Dx Diagnosis Office Visit 10/24/2020 11:20a [facility] Neu[facility] Avel Neal MD R53 .1 Weakness R20.2 Paresthesia of skin Office Visit 10/16/2020 2:50a [facility] Neurology CAREY Hernandez R53.1 Weakness Office Visit 10/15/2020 2:11a [facility] Neurology CAREY Jurado R53.1 Weakness Office Visit 10/14/2020 2:03a [facility] Neurology Cameron Andrew MD R 53.1 Weakness Office Visit 10/13/2020 2:06a [facility] Neurology Cameron Andrew MD R 53.1 Weakness Office Visit 10/12/2020 8:35a [facility] Neurology Avel Neal MD R53 .1 Weakness [...] 3:00 pm - Avel Neal MD at [facility] Neurology 10/24/2020 - Avel Neal MD* R53.1 [...]
--- OUTSIDE RECORDS SUMMARY | 2020-12-06 09:51 | CCD | Continuity of Care Document ---
Author Organization Unknown Address Unknown Phone Unavailable Care Team Providers Care Biology Professor Name Role Phone Rachel Louie ELIZABETH AUTM [phone] Satish Nielsen MD AUTM [phone] Avel Neal MD AUTM [phone] Problems Active Problems Provider Date Electrocardiogram abnormal Ever Bishop MD Onset: 12/13 Dietary management surveillance Ever Bishop MD Onset: 12/14/2019 Morbid obesity Ever Bishop MD Onset: 12/14/2019 Heart murmur Ever Bishop MD Onset: 12/14/2019 Precordial pain Ever Bishop MD Onset: 12/14/2019 Social History Type Date Description Comments Sex [...] Range Note CBC without Differential 10/11/2020 Patient's [facility] e (315)- - White Blood Count 9.8 4.3-10.9 Red Blood Count 4.26 Low 4.70-6.20 Platelets 335 130-400 Hemoglobin 12.6 Low 13.0-17.0 Hematocrit 37.4 Low 39.0-50.0 CMP 10/11/2020 [facility] (315)- - Albumin Serum/Plasma [...] Hormone 0.55 CBC without Differential 09/15/2020 Patient's [facility] e (315)- - White Blood Count 12.3 High 4.2-11.0 Red Blood Count 4.33 4.20-5.40 Platelets 288 130-400 Hemoglobin 12.8 12.0-16.0 Hematocrit 38.2 37.0-47.0 [facility] 09/15/2020 [facility] (315)- - Albumin Serum/Plasma 3.9 Alt - SGPT 12 Calcium Ser/Plasma Mass/Vol 9.1 Carbon Dioxide Ser/Plasm 27 Chloride Serum/Plasma 102 Alkaline Phosphatase 72 Potassium 4.2 Protein Total 7.2 Sodium 136 Ast - Sgot 15 BUN - Urea Nitrogen 7 Glucose 95 70-99 Creatinine For GFR 0.7 Liver Function Test/ Liver Hep 09/03/2020 [facility] - not interfaced (315)- - Ast/Sgot 18 15-37 Alt/SGPT 24 30-65 Alk Phos 67 50-136 Albumin 3.7 3.2-5.2 Total Bilirubin 0.2 0.0-1.0 Total Protein 7.6 6.4-8.2 A/G Ratio -- Low 1.00-1.93 CBC without Differential 09/03/2020 [facility] - not inter faced (315)- - White Blood Count 11.5 High 4.0-10.0 Red Blood Count 4.76 4.00-5.40 Platelets 281 150-450 Hemoglobin 14.0 Hematocrit 42.5 CPK & CPK MB 09/03/2020 [facility] - not interfaced (315)- - CPK 90 CPK-MB <1.0 Laboratory test finding 09/03/2020 [facility] - not interf aced (315)- - Troponin <0.02 Procedures Date Code Description Status 09/28/2020 67109 Office/Outpatient Established Mo d MDM 30-39 Min Completed 09/28/2020 63293 ECG 12-Lead Completed 05/01/2020 81554 Treadmill/Pharmacological Monito ring Completed Medical Devices Description No Information Available Encounters Type Date Location Provider Dx Diagnosis Office Visit 09/28/2020 1:30p Main Office CAREY Varags R07 .2 Precordial pain R01.1 Cardiac murmur, unspecified R94.31 Abnormal electrocardiogram [ ECG] [EKG] E66.01 Morbid (severe) obesity due to excess calories Z71.3 Dietary counseling and surve illance Assessments Date Code Description Provider 09/28/2020 R07.2 Precordial pain CAREY Ann Cha, se 09/28/2020 R01.1 Cardiac murmur, unspecified CAREY Rizo 09/28/2020 R94.31 Abnormal electrocardiogram [ECG] [EKG] CAREY Vargas 09/28/2020 E66.01 Morbid (severe) obesity due to e xcess calories CAREY Vargas 09/28/2020 Z71.3 Dietary counseling and surveilla nce CAREY Vargas 05/01/2020 R07.2 Precordial pain Stress Nuclear/R eg Treadmill Plan of Treatment Future Appointment(s):* 09/30/2021 2:30 [...]
--- OUTSIDE RECORDS SUMMARY | 2020-12-06 09:51 | CCD ---
Continuity of Care Document (CCD) Created on: 10/09/2020 Karma Singer External Reference #: [id number] : 1990 Sex: Female Author Author Karma RAMIRES PA Organization Unknown Address [address] [place] [address] [place] [address] Phone [phone] Care Team Providers Care Tape Sewing Machine Operator Name Role Phone Donny Figueroa MD AUTM Unavailable [facility] AUTM [employer] AUTM [phone] Problems Description No Information Available Social History [...] H/L Range Note CBC With Differential 10/08/2020 [facility] [address] [place] [address] [phone] White Blood Count 11.6 10 High 4.0-10.0 [...] 36.0-66.0 Lymph % 14.3 % Low 24.0-44.0 [place] % 6.2 % Normal 2.0-8.0 Eos % 0.6 % Normal 0.0-3.0 Baso % 0.6 % Normal 0.0-1.0 Immature Granulocyte % 0.5 % Normal 0-3.0 Nucleated Red Blood Cell % 0.0 % Normal 0-0 Neutrophils # 9.1 10 High 1.5-8.5 Lymph # 1.7 10 Normal 1.5-5.0 [place] # 0.7 10 Normal 0.0-0.8 Eos # 0.1 10 Normal 0.0-0.5 Baso # 0.1 10 Normal 0.0-0.2 Laboratory test finding 10/08/[address] [id number] [phone] CPK Creatine Phosphokinase 74 U/L Normal 26-19 2 Comprehensive Metabolic Profil 10/08/[address] [id number] [phone] Glucose, Fasting 79 mg/dL Normal 70-100 Blood [...] 1.0 Low 1.2-2.2 Laboratory test finding 10/08/2020 [place] 5056061 [phone] C Reactive Protein Quantitativ 1.49 mg/dL High 0 .00-0.30 Erythrocyte Sedimentation Rate 35 mm/hr High 0-20 Laboratory test finding 10/08/[address] [address] [phone] Thyroid Stimulating Hormone 0.904 uIU/ML Normal 0. 358-3.740 1 pending Lyme Titer 2 Units are mL/min/1.73 m2 Chronic Kidney Disease Staging per NKF: Stage I & II GFR >=60 Normal to Mildly Decreased Stage III GFR 30-59 Moderately Decreased Stage IV GFR 15-29 Severely Decreased Stage V GFR <15 Very Little GFR Left ESRD GFR <15 on MECHANICAL SHOVEL OPERATOR Procedures Date Code Description Status 10/08/2020 29525 Office/Outpatient Established Mo d MDM 30-39 Min [...] Status Appt Date Mendy Ramires PA Created [address] [place] [address] [phone] Azael Azul PA Created [facility] [address] [place] [address] [phone]
--- OUTSIDE RECORDS SUMMARY | 2020-12-06 09:51 | CCD | Continuity of Care Document ---
Author Author Karma ALFARO Organization Unknown Address [address], [address] [place] [address] Phone [phone] Problems Description No Information Available Social History Type Date Description Comments Sex Unknown Allergies, Adverse Reactions, Alerts Description No Information Available Medications Description No Information Available Immunizations Description No Information Available Vital Signs Description No Information Available Results Description No Information Available Procedures Date Code Description Status 10/15/2020 61304 Office/Outpatient Established Lo w MDM 20-29 Min Completed 10/14/2020 04126 Office/Outpatient Established Lo w MDM 20-29 Min Completed 10/13/2020 34182 Office/Outpatient Established SF MDM 10-19 Min Completed 10/12/2020 29266 Office/Outpatient New Moderate M DM 45-59 Minutes [...] Assessments Date Code Description Provider 10/15/2020 R53.1 CAREY Ortiz 10/14/2020 R53.1 Weakness Cameron jean MD 10/13/2020 R53.1 Weakness Cameron jean MD 10/12/2020 R53.1 Weakness Avel Neal MD Plan of Treatment Future Appointment(s):* 10/24/2020 11:20 am - Avel Neal MD at [facility] Neurology Functional Status Description No Information Available Mental Status Description No Information Available Referrals Description No Information Available
--- OUTSIDE RECORDS SUMMARY | 2020-12-06 09:51 | CCD | Continuity of Care Document ---
Author Author Karma EVANS MD Organization Unknown Address [address] [place] [address] [place] [address] Phone [phone] Problems Description No Information Available Social History Type Date Description Comments Sex Unknown Allergies, Adverse Reactions, Alerts Description No Information Available Medications Description No Information Available Immunizations Description No Information Available Vital Signs Description No Information Available Results Description No Information Available Procedures Date Code Description Status 10/15/2020 25155 Office/Outpatient Established Lo w MDM 20-29 Min Completed 10/14/2020 67150 Office/Outpatient Established Lo w MDM 20-29 Min Completed 10/13/2020 85806 Office/Outpatient Established SF MDM 10-19 Min Completed 10/12/2020 70886 Office/Outpatient New Moderate M DM 45-59 Minutes [...] 11:20 am - Avel Neal MD at [facility] Neurology Functional Status Description No Information Available Mental Status Description No Information Available Referrals Description No Information Available
--- OUTSIDE RECORDS SUMMARY | 2020-12-06 09:51 | CCD | Continuity of Care Document ---
Author Author Karma NEAL MD Organization Unknown Address [address], [address] [place] [address] Phone [phone] Problems Description No Information Available Social History Type Date Description Comments Sex Unknown Allergies, Adverse Reactions, Alerts Description No Information Available Medications Description No Information Available Immunizations Description No Information Available Vital Signs Description No Information Available Results Description No Information Available Procedures Date Code Description Status 10/15/2020 98908 Office/Outpatient Established Lo w MDM 20-29 Min Completed 10/14/2020 96639 Office/Outpatient Established Lo w MDM 20-29 Min Completed 10/13/2020 97452 Office/Outpatient Established SF MDM 10-19 Min Completed 10/12/2020 25285 Office/Outpatient New Moderate M DM 45-59 Minutes [...] 11:20 am - Avel Neal MD at [facility] Neurology Functional Status Description No Information Available Mental Status Description No Information Available Referrals Description No Information Available
--- OUTSIDE RECORDS SUMMARY | 2020-12-06 09:53 | CCD ---
Author Author [facility] Organization [facility] Address Unknown Phone Unavailable Care Team Providers Care Wordpress Developer Name Role Phone Carla TOBIAS MD Unavailable Unavailable Carla TOBIAS MD Unavailable Unavailable Carla TOBIAS MD Unavailable Unavailable Carla TOBIAS MD Unavailable Unavailable Carla TOBIAS MD Unavailable Unavailable Carla TOBIAS MD Unavailable Unavailable Ascencion Sales MD Unavailable Unavailable Ascencion Sales MD Unavailable Unavailable Ascencion Sales MD Unavailable Unavailable Ascencion Sales MD Unavailable Unavailable Ascencion Sales MD Unavailable Unavailable Ascencion Sales MD Unavailable Unavailable Alicia FERNANDEZ MD Unavailable Unavailable Alicia FERNANDEZ MD Unavailable Unavailable Alicia FERNANDEZ MD Unavailable Unavailable Alicia FERNANDEZ MD Unavailable Unavailable Alicia FERNANDEZ MD Unavailable Unavailable Alicia FERNANDEZ MD Unavailable Unavailable Alicia FERNANDEZ MD Unavailable Unavailable Alicia FERNANDEZ MD Unavailable Unavailable Alicia FERNANDEZ MD Unavailable Unavailable Eric Sorensen MD Unavailable Unavail able Eric Sorensen MD Unavailable Unavail able Eric Sorensen MD Unavailable Unavail able Eric Sorensen MD Unavailable Unavail able Eric Sorensen MD Unavailable Unavail able Eric Sorensen MD Unavailable Unavail able Eric Sorensen MD Unavailable Unavail able Eric Sorensen MD Unavailable Unavail able [place], Eric Camarena MD Unavailable Unavail able [place], Eric Camarena MD Unavailable Unavail able [place], Eric Camarena MD Unavailable Unavail able [place], Eric Camarena MD Unavailable Unavail able [place], Eric Camarena MD Unavailable Unavail able [place], Eric Camarena MD Unavailable Unavail able El-[place]okla, Eric Camarena MD Unavailable Unavail able [place]okla, Eric Camarena MD Unavailable Unavail able [place]okla, Eric Camarena MD Unavailable Unavail able [place]la, Eric Camarena MD Unavailable Unavail able [place]la, Eric Camarena MD Unavailable Unavail able [place], Eric Camarena MD Unavailable Unavail able [place], Eric Camarena MD Unavailable Unavail able [place]okla, Eric Camarena MD Unavailable Unavail able [place], Eric Camarena MD Unavailable Unavail able [place]la, Eric Camarena MD Unavailable Unavail able [place], Eric Camarena MD Unavailable Unavail able [place]la, Eric Camarena MD Unavailable Unavail able [place]la, Eric Camarena MD Unavailable Unavail able [place], Eric Camarena MD Unavailable Unavail able [place], Eric Camarena MD Unavailable Unavail able [place], Eric Camarena MD Unavailable Unavail able [place], Eric Camarena MD Unavailable Unavail able [place]la, Eric Camarena MD Unavailable Unavail able [place], Eric Camarena MD Unavailable Unavail able [place], Eric Camarena MD Unavailable Unavail able [place], Eric Camarena MD Unavailable Unavail able [place]la, Eric Camarena MD Unavailable Unavail able [place], Eric Camarena MD Unavailable Unavail able [place], Eric Camarena MD Unavailable Unavail able [place], Eric Camarena MD Unavailable Unavail able [place], Eric Camarena MD Unavailable Unavail able [place]la, Ericmadison Camarena MD Unavailable Unavail able [place], Eric Camarena MD Unavailable Unavail able [place], Ericmadison Camarena MD Unavailable Unavail able [place], Ericmadison Camarena MD Unavailable Unavail able [place], Eric Boy Camarena MD Unavailable Unavail able [place], Eric Boy Camarena MD Unavailable Unavail able [place], Eric Boy Camarena MD Unavailable Unavail able [place], Ericmadison Camarena MD Unavailable Unavail able [place], Eric Boy Camarena MD Unavailable Unavail able Kristin-Malak, A Avel MD Unavailable Unavailable Kristin-Malak, A Avel MD Unavailable Unavailable Kristin-Malak, A Avel MD Unavailable Unavailable Kristin-Malak, A Avel MD Unavailable Unavailable Kristin-Malak, A Avel MD Unavailable Unavailable Kristin-Malak, A Avel MD Unavailable Unavailable Kristin-Malak, A Avel MD Unavailable Unavailable Kristin-Malak, A Avel MD Unavailable Unavailable Kristin-Malak, A Avel MD Unavailable Unavailable Kristin-Malak, A Avel MD Unavailable Unavailable Kristin-Malak, A Avel MD Unavailable Unavailable Kristin-Malak, A Avel MD Unavailable Unavailable Kristin-Malak, A Avel MD Unavailable Unavailable Kristin-Malak, A Avel MD Unavailable Unavailable Kristin-Malak, A Avel MD Unavailable Unavailable Kristin-Malak, A Avel MD Unavailable Unavailable Kristin-Malak, A Avel MD Unavailable Unavailable Kristin-Malak, A Avel MD Unavailable Unavailable Kristin-Malak, A Avel MD Unavailable Unavailable Kristin-Malak, A Avel MD Unavailable Unavailable Kristin-Malak, A Avel MD Unavailable Unavailable Kristin-Malak, A Avel MD Unavailable Unavailable Kristin-Malak, A Avel MD Unavailable Unavailable Kristin-Malak, A Avel MD Unavailable Unavailable Kristin-Malak, A Avel MD Unavailable Unavailable Kristin-Malak, A Avel MD Unavailable Unavailable Kristin-Malak, A Avel MD Unavailable Unavailable Kristin-Malak, A Avel MD Unavailable Unavailable Kristin-Malak, A Avel MD Unavailable Unavailable Kristin-Malak, A Avel MD Unavailable Unavailable Kristin-Malak, A Avel MD Unavailable Unavailable Kristin-Malak, A Avel MD Unavailable Unavailable Kristin-Malak, A Avel MD Unavailable Unavailable Kristin-Malak, A Avel MD Unavailable Unavailable Kristin-Malak, A Avel MD Unavailable Unavailable Kristin-Malak, A Avel MD Unavailable Unavailable Kristin-Malak, A Avel MD Unavailable Unavailable Kristin-Malak, A Avel MD Unavailable Unavailable Kristin-Malak, A Avel MD Unavailable Unavailable Kristin-Malak, A Avel MD Unavailable Unavailable Kristin-Malak, A Avel MD Unavailable Unavailable Kristin-Malak, A Avel MD Unavailable Unavailable Kristin-Malak, A Avel MD Unavailable Unavailable Kristin-Malak, A Avel MD Unavailable Unavailable Kristin-Malak, A Avel MD Unavailable Unavailable Kristin-Malak, A Avel MD Unavailable Unavailable Kristin-Malak, A Avel MD Unavailable Unavailable Kristin-Malak, A Avel MD Unavailable Unavailable Kristin-Malak, A Avel MD Unavailable Unavailable Kristin-Malak, A Avel MD Unavailable Unavailable Kristin-Malak, A Avel MD Unavailable Unavailable Kristin-Malak, A Avel MD Unavailable Unavailable Kristin-Malak, A Avel MD Unavailable Unavailable Kristin-Malak, A Avel MD Unavailable Unavailable Kristin-Malak, A Avel MD Unavailable Unavailable Kristin-Malak, A Avel MD Unavailable Unavailable Kristin-Malak, A Avel MD Unavailable Unavailable Kristin-Malak, A Avel MD Unavailable Unavailable Kristin-Malak, A Avel MD Unavailable Unavailable Kristin-Malak, A Avel MD Unavailable Unavailable Kristin-Malak, A Avel MD Unavailable Unavailable Kristin-Malak, A Avel MD Unavailable Unavailable Kristin-Malak, A Avel MD Unavailable Unavailable Kristin-Malak, A Avel MD Unavailable Unavailable Kristin-Malak, A Avel MD Unavailable Unavailable Kristin-Malak, A Avel MD Unavailable Unavailable Kristin-Malak, A Avel MD Unavailable Unavailable Kristin-Malak, A Avel MD Unavailable Unavailable Kristin-Malak, A Avel MD Unavailable Unavailable Molina, Marnie CORE JAVA SOFTWARE ENGINEER Unavailable Unavailable Molina, Marnie CORE JAVA SOFTWARE ENGINEER Unavailable Unavailable Molina, Marnie CORE JAVA SOFTWARE ENGINEER Unavailable Unavailable Molina, Marnie CORE JAVA SOFTWARE ENGINEER Unavailable Unavailable Molina, Marnie CORE JAVA SOFTWARE ENGINEER Unavailable Unavailable Molina, Marnie CORE JAVA SOFTWARE ENGINEER Unavailable Unavailable Molina, Marnie CORE JAVA SOFTWARE ENGINEER Unavailable Unavailable Molina, Marnie CORE JAVA SOFTWARE ENGINEER Unavailable Unavailable Molina, Marnie CORE JAVA SOFTWARE ENGINEER Unavailable Unavailable Molina, Marnie CORE JAVA SOFTWARE ENGINEER Unavailable Unavailable Molian, Marnie CORE JAVA SOFTWARE ENGINEER Unavailable Unavailable Molina, Marnie CORE JAVA SOFTWARE ENGINEER Unavailable Unavailable Molina, Marnie CORE JAVA SOFTWARE ENGINEER Unavailable Unavailable DIOGO BRADFORD MD Unavailable Unavailable DIOGO BRADFORD MD Unavailable Unavailable DIOGO BRADFORD MD Unavailable Unavailable DIOGO BRADFORD MD Unavailable Unavailable Seldes, F Anna PA-C Unavailable Unavailable Seldes, F Anna PA-C Unavailable Unavailable Seldes, F Anna PA-C Unavailable Unavailable Seldes, F Anna PA-C Unavailable Unavailable Seldes, F Anna PA-C Unavailable Unavailable Seldes, F Anna PA-C Unavailable Unavailable Seldes, F Anna PA-C Unavailable Unavailable Seldes, F Anna PA-C Unavailable Unavailable Seldes, F Anna PA-C Unavailable Unavailable Seldes, F Anna PA-C Unavailable Unavailable Seldes, F Anna PA-C Unavailable Unavailable Seldes, F Anna PA-C Unavailable Unavailable Seldes, F Anna PA-C Unavailable Unavailable Seldes, F Anna PA-C Unavailable Unavailable Seldes, F Anna PA-C Unavailable Unavailable Seldes, F Anna PA-C Unavailable Unavailable Seldes, F Anna PA-C Unavailable Unavailable Seldes, F Anna PA-C Unavailable Unavailable Seldes, F Anna PA-C Unavailable Unavailable Seldes, F Anna PA-C Unavailable Unavailable Seldes, F Anna PA-C Unavailable Unavailable Seldes, F Anna PA-C Unavailable Unavailable Seldes, F Anna PA-C Unavailable Unavailable Seldes, F Anna PA-C Unavailable Unavailable Seldes, F Anna PA-C Unavailable Unavailable Seldes, F Anna PA-C Unavailable Unavailable Seldes, F Anna PA-C Unavailable Unavailable Seldes, F Anna PA-C Unavailable Unavailable Seldes, F Anna PA-C Unavailable Unavailable Seldes, F Anna PA-C Unavailable Unavailable Seldes, F Anna PA-C Unavailable Unavailable Shelbie SÁNCHEZ MD Unavailable Unavailable Shelbie SÁNCHEZ MD Unavailable Unavailable Shelbie SÁNCHEZ MD Unavailable Unavailable Shelbie SÁNCHEZ MD Unavailable Unavailable Shelbie SÁNCHEZ MD Unavailable Unavailable Shelbie SÁNCHEZ MD Unavailable Unavailable Shelbie SÁNCHEZ MD Unavailable Unavailable Shelbie SÁNCHEZ MD Unavailable Unavailable TURRIN, JJ Unavailable Unavailable TURRIN, JJ Unavailable Unavailable TURRIN, JJ Unavailable Unavailable TURRIN, JJ Unavailable Unavailable ANTECOL, Herb LUNA MD Unavailable Unavailable ANTECOL, Herb LUNA MD Unavailable Unavailable ANTECOL, Herb LUNA MD Unavailable Unavailable ANTECOL, Herb LUNA MD Unavailable Unavailable ANTECOL, Herb LUNA MD Unavailable Unavailable ANTECOL, Herb LUNA MD Unavailable Unavailable ANTECOL, Herb LUNA MD Unavailable Unavailable ANTECOL, Herb LUNA MD Unavailable Unavailable ANTECOL, Herb LUNA MD Unavailable Unavailable ANTECOL, Herb LUNA MD Unavailable Unavailable ANTECOL, Herb LUNA MD Unavailable Unavailable ANTECOL, Herb LUNA MD Unavailable Unavailable ANTECOL, Herb LUNA MD Unavailable Unavailable ANTECOL, Herb LUNA MD Unavailable Unavailable ANTECOL, Herb LUNA MD Unavailable Unavailable ANTECOL, Herb LUNA MD Unavailable Unavailable ANTECOL, Herb LUNA MD Unavailable Unavailable ANTECOL, Herb LUNA MD Unavailable Unavailable ANTECOL, Herb LUNA MD Unavailable Unavailable ANTECOL, Herb LUNA MD Unavailable Unavailable ANTECOL, Herb ULNA MD Unavailable Unavailable ANTECOL, Herb LUNA MD Unavailable Unavailable ANTECOL, Herb LUNA MD Unavailable Unavailable ANTECOL, Herb LUNA MD Unavailable Unavailable ANTECOL, Herb LUNA MD Unavailable Unavailable ANTECOL, Herb LUNA MD Unavailable Unavailable ANTECOL, Herb LUNA MD Unavailable Unavailable ANTECOL, Herb LUNA MD Unavailable Unavailable ANTECOL, Herb LUNA MD Unavailable Unavailable ANTECOL, Herb LUNA MD Unavailable Unavailable ANTECOL, Herb LUNA MD Unavailable Unavailable ANTECOL, Herb LUNA MD Unavailable Unavailable ANTECOL, Herb LUNA MD Unavailable Unavailable ANTECOL, Herb LUNA MD Unavailable Unavailable ANTECOL, Herb LUNA MD Unavailable Unavailable ANTECOL, Herb LUNA MD Unavailable Unavailable ANTECOL, Herb LUNA MD Unavailable Unavailable ANTECOL, Herb LUNA MD Unavailable Unavailable ANTECOL, Herb LUNA MD Unavailable Unavailable ANTECOL, Herb LUNA MD Unavailable Unavailable ANTECOL, Herb LUNA MD Unavailable Unavailable ANTECOL, Herb LUNA MD Unavailable Unavailable ANTECOL, Herb LUNA MD Unavailable Unavailable ANTECOL, Herb LUNA MD Unavailable Unavailable ANTECOL, Herb LUNA MD Unavailable Unavailable ANTECOL, Herb LUNA MD Unavailable Unavailable ANTECOL, Herb LUNA MD Unavailable Unavailable ANTECOL, Herb LUNA MD Unavailable Unavailable ANTECOL, Herb LUNA MD Unavailable Unavailable ANTECOL, Herb LUNA MD Unavailable Unavailable ANTECOL, Herb LUNA MD Unavailable Unavailable ANTECOL, Herb LUNA MD Unavailable Unavailable ANTECOL, Herb LUNA MD Unavailable Unavailable ANTECOL, Herb LUNA MD Unavailable Unavailable Ulices JIMENEZ MD Unavailable Unavailable Ulices JIMENEZ MD Unavailable Unavailable Ulices JIMENEZ MD Unavailable Unavailable Ulices JIMENEZ MD Unavailable Unavailable Ulices JIMENEZ MD Unavailable Unavailable Ulices JIMENEZ MD Unavailable Unavailable Ulices JIMENEZ MD Unavailable Unavailable Ulices JIMENEZ MD Unavailable Unavailable JenniferMaggie clinton Zora PA-C Unavailable Unavailable JenniferMaggie clinton Zora PA-C Unavailable Unavailable JenniferMaggie clinton Zora PA-C Unavailable Unavailable VICKERS, CLINIC CLINIC Unavailable Unavailable Hudson, Raja Unavailable Unavailable Hudson, Raja Unavailable Unavailable Hudson, Raja Unavailable Unavailable Hudson, Raja Unavailable Unavailable Lane TENA MD Unavailable Unavailable CHANLane PAUL MD Unavailable Unavailable CHANLane PAUL MD Unavailable Unavailable CHANLane PAUL MD Unavailable Unavailable CHANLane PAUL MD Unavailable Unavailable CHANLane PAUL MD Unavailable Unavailable CHANLane PAUL MD Unavailable Unavailable CHANLane PAUL MD Unavailable Unavailable CHANLane PAUL MD Unavailable Unavailable CHANLane PAUL MD Unavailable Unavailable CHANLILane ODEN MD Unavailable Unavailable ED, TEST DEFAULT Unavailable Unavailable Ulices Nielsen MD Unavailable Unavailable Ulices Nilesen MD Unavailable Unavailable Ulices Nielsen MD Unavailable Unavailable Ulices Nielsen MD Unavailable Unavailable Ulices Nielsen MD Unavailable Unavailable Ulices Nielsen MD Unavailable Unavailable Ulices Nielsen MD Unavailable Unavailable Ulices Nielsen MD Unavailable Unavailable Ulices Nielsen MD Unavailable Unavailable Ulices Nielsen MD Unavailable Unavailable Ulices Nielsen MD Unavailable Unavailable Ulices Nielsen MD Unavailable Unavailable Ulices Nielsen MD Unavailable Unavailable Ulices Nielsen MD Unavailable Unavailable Ulices Nielsen MD Unavailable Unavailable Ulices Nielsen MD Unavailable Unavailable Ulices Nielsen MD Unavailable Unavailable Ulices Nielsen MD Unavailable Unavailable MoralesUlices MD Unavailable Unavailable MoralesUlices lemus MD Unavailable Unavailable MoralesUlices MD Unavailable Unavailable MoralesUlices lemus MD Unavailable Unavailable Morales S Satish CASAS Unavailable Unavailable MoralesUlices MD Unavailable Unavailable Morales S Satish CASAS Unavailable Unavailable Morales S Satish MD Unavailable Unavailable Morales S Satish CASAS Unavailable Unavailable Morales S Satish MD Unavailable Unavailable Morales S Satish CASAS Unavailable Unavailable Morales S Satish CASAS Unavailable Unavailable MoralesUlices MD Unavailable Unavailable Morales S Satish CASAS Unavailable Unavailable Morales S Satish CASAS Unavailable Unavailable MoralesUlices MD Unavailable Unavailable Morales S Satish CASAS Unavailable Unavailable MoralesUlices lemus MD Unavailable Unavailable Ulices Nielsen MD Unavailable Unavailable Ulices Nielsen MD Unavailable Unavailable Ulices Nielsen MD Unavailable Unavailable Ulices Nielsen MD Unavailable Unavailable Ulices Nielsen MD Unavailable Unavailable Ulices Nielsen MD Unavailable Unavailable Ulices Nielsen MD Unavailable Unavailable Ulices Nielsen MD Unavailable Unavailable Ulices Nielsen MD Unavailable Unavailable Ulices Nielsen MD Unavailable Unavailable Ulices Nielsen MD Unavailable Unavailable Ulices Nielsen MD Unavailable Unavailable Ulices Nielsen MD Unavailable Unavailable Ulices Nielsen MD Unavailable Unavailable Josué Blood MD Unavailable Unavailable Josué Blood MD Unavailable Unavailable Josué Blood MD Unavailable Unavailable Josué Blood MD Unavailable Unavailable Josué Blood MD Unavailable Unavailable Josué Blood MD Unavailable Unavailable Josué Blood MD Unavailable Unavailable Josué Blood MD Unavailable Unavailable Josué Blood MD Unavailable Unavailable Josué Blood MD Unavailable Unavailable Josué Blood MD Unavailable Unavailable Josué Blood MD Unavailable Unavailable Josué Blood MD Unavailable Unavailable Cameron Walters MD Unavailable Unavailable Cameron Walters MD Unavailable Unavailable Cameron Walters MD Unavailable Unavailable Cameron Walters MD Unavailable Unavailable Cameron Walters MD Unavailable Unavailable Cameron Walters MD Unavailable Unavailable Cameron Walters MD Unavailable Unavailable Cameron aWlters MD Unavailable Unavailable Yash Taylor MD Unavailable Unavailable Yash Taylor MD Unavailable Unavailable CottleYash guthrie MD Unavailable Unavailable CottleYash guthrie MD Unavailable Unavailable CottleYash guthrie MD Unavailable Unavailable RING, K SOURAV PA Unavailable Unavailable RING, K SOURAV PA Unavailable Unavailable RING, K SOURAV PA Unavailable Unavailable RING, K SOURAV PA Unavailable Unavailable RING, K SOURAV PA Unavailable Unavailable RING, K SOURAV PA Unavailable Unavailable RING, K SUORAV PA Unavailable Unavailable RING, K SUORAV PA Unavailable Unavailable RING, K SOURAV PA Unavailable Unavailable RING, K SOURAV PA Unavailable Unavailable RING, K SOURAV PA Unavailable Unavailable RING, K SOURAV PA Unavailable Unavailable RING, K SOURAV PA Unavailable Unavailable RING, K SOURAV PA Unavailable Unavailable RING, K SOURAV PA Unavailable Unavailable RING, K SOURAV PA Unavailable Unavailable RING, K SOURAV PA Unavailable Unavailable RING, K SOURAV PA Unavailable Unavailable RING, K SOURAV PA Unavailable Unavailable RING, K SOURAV PA Unavailable Unavailable RING, K SOURAV PA Unavailable Unavailable CottleYash MD Unavailable Unavailable CottleYash MD Unavailable Unavailable CottleYash MD Unavailable Unavailable CottleYash guthrie MD Unavailable Unavailable CottleYash MD Unavailable Unavailable FRETWELL, JEET Unavailable Unavailable Feola, T Linda PA Unavailable Unavailable Feola, T Linda PA Unavailable Unavailable Feola, T Linda PA Unavailable Unavailable Feola, T Linda PA Unavailable Unavailable Feola, T Linda PA Unavailable Unavailable Feola, T Linda PA Unavailable Unavailable Feola, T Linda PA Unavailable Unavailable Feola, T Linda PA Unavailable Unavailable Feola, T Linda PA Unavailable Unavailable Feola, T Linda PA Unavailable Unavailable Feola, T Linda PA Unavailable Unavailable Feola, T Linda PA Unavailable Unavailable Feola, T Linda PA Unavailable Unavailable Feola, T Linda PA Unavailable Unavailable Feola, T Linda PA Unavailable Unavailable Feola, T Linda PA Unavailable Unavailable Feola, T Linda PA Unavailable Unavailable Feola, T Linda PA Unavailable Unavailable Feola, T Linda PA Unavailable Unavailable Feola, T Linda PA Unavailable Unavailable Feola, T Linda PA Unavailable Unavailable Feola, T Linda PA Unavailable Unavailable Feola, T Linda PA Unavailable Unavailable Feola, T Linda PA Unavailable Unavailable Feola, T Linda PA Unavailable Unavailable Feola, T Linda PA Unavailable Unavailable Feola, T Linda PA Unavailable Unavailable Feola, T Linda PA Unavailable Unavailable Feola, T Linda PA Unavailable Unavailable Feola, T Linda PA Unavailable Unavailable Feola, T Linda PA Unavailable Unavailable Feola, T Linda PA Unavailable Unavailable Feola, T Linda PA Unavailable Unavailable Feola, T Linda PA Unavailable Unavailable Feola, T Linda PA Unavailable Unavailable Feola, T Linda PA Unavailable Unavailable Feola, T Linda PA Unavailable Unavailable Feola, T Linda PA Unavailable Unavailable Feola, T Linda PA Unavailable Unavailable Feola, T Linda PA Unavailable Unavailable Feola, T Linda PA Unavailable Unavailable BRADFORD, CLAUDETTE MD Unavailable Unavailable BRADFORD, CLAUDETTE MD Unavailable Unavailable BRADFORD, CLAUDETTE MD Unavailable Unavailable BRADFORD, CLAUDETTE MD Unavailable Unavailable BRADFORD, CLAUDETTE MD Unavailable Unavailable BRADFORD, CLAUDETTE MD Unavailable Unavailable BRADFORD, CLAUDETTE MD Unavailable Unavailable BRADFORD, CLAUDETTE MD Unavailable Unavailable BRADFORD, CLAUDETTE MD Unavailable Unavailable BRADFORD, CLAUDETTE MD Unavailable Unavailable BRADFORD, CLAUDETTE MD Unavailable Unavailable BRADFORD, CLAUDETTE MD Unavailable Unavailable BRADFORD, CLAUDETTE MD Unavailable Unavailable BRADFORD, CLAUDETTE MD Unavailable Unavailable BRADFORD, CLAUDETTE MD Unavailable Unavailable BRADFORD, CLAUDETTE MD Unavailable Unavailable BRADFORD, CLAUDETTE MD Unavailable Unavailable BRADFORD, CLAUDETTE MD Unavailable Unavailable BRADFORD, CLAUDETTE MD Unavailable Unavailable BRADFORD, CLAUDETTE MD Unavailable Unavailable BRADFORD, CLAUDETTE MD Unavailable Unavailable BRADFORD, CLAUDETTE MD Unavailable Unavailable BRADFORD, CLAUDETTE MD Unavailable Unavailable BRADFORD, CLAUDETTE MD Unavailable Unavailable BRADFORD, CLAUDETTE MD Unavailable Unavailable BRADFORD, CLAUDETTE MD Unavailable Unavailable BRADFORD, CLAUDETTE MD Unavailable Unavailable BRADFORD, CLAUDETTE MD Unavailable Unavailable BRADFORD, CLAUDETTE MD Unavailable Unavailable BRADFORD, CLAUDETTE MD Unavailable Unavailable BRADFORD, CLAUDETTE MD Unavailable Unavailable BRADFORD, CLAUDETTE MD Unavailable Unavailable BRADFORD, CLAUDETTE MD Unavailable Unavailable BRADFORD, CLAUDETTE MD Unavailable Unavailable BRADFORD, CLAUDETTE MD Unavailable Unavailable BRADFORD, CLAUDETTE MD Unavailable Unavailable BRADFORD, CLAUDETTE MD Unavailable Unavailable BRADFORD, CLAUDETTE MD Unavailable Unavailable BRADFORD, CLAUDETTE MD Unavailable Unavailable BRADFORD, CLAUDETTE MD Unavailable Unavailable BRADFORD, CLAUDETTE MD Unavailable Unavailable BRADFORD, CLAUDETTE MD Unavailable Unavailable BRADFORD, CLAUDETTE MD Unavailable Unavailable PHYSICIAN, PHYSICIAN ER Unavailable Unavailable DANNY, L CANDY PA Unavailable Unavailable DANNY, L CANDY PA Unavailable Unavailable DANNY, L CANDY PA Unavailable Unavailable DANNY, L CANDY PA Unavailable Unavailable DANNY, L CANDY PA Unavailable Unavailable DANNY, L CANDY PA Unavailable Unavailable DANNY, L CANDY PA Unavailable Unavailable DANNY, L CANDY PA Unavailable Unavailable DANNY, L CANDY PA Unavailable Unavailable DANNY, L CANDY PA Unavailable Unavailable DANNY, L CANDY PA Unavailable Unavailable DANNY, L CANDY PA Unavailable Unavailable DANNY, L CANDY PA Unavailable Unavailable DANNY, L CANDY PA Unavailable Unavailable DANNY, L CANDY PA Unavailable Unavailable DANNY, L CANDY PA Unavailable Unavailable CAN, G EDWARD RPA Unavailable Unavailable CAN, G EDWARD RPA Unavailable Unavailable CAN, G EDWARD RPA Unavailable Unavailable CAN, G EDWARD RPA Unavailable Unavailable CAN, G EDWARD RPA Unavailable Unavailable CAN, G EDWARD RPA Unavailable Unavailable CAN, G EDWARD RPA Unavailable Unavailable CAN, G EDWARD RPA Unavailable Unavailable CAN, G EDWARD RPA Unavailable Unavailable CAN, G EDWARD RPA Unavailable Unavailable CAN, G EDWARD RPA Unavailable Unavailable CAN, G EDWARD RPA Unavailable Unavailable CAN, G EDWARD RPA Unavailable Unavailable CAN, G EDWARD RPA Unavailable Unavailable CAN, G EDWARD RPA Unavailable Unavailable CAN, G EDWARD RPA Unavailable Unavailable CAN, G EDWARD RPA Unavailable Unavailable CAN, G EDWARD RPA Unavailable Unavailable CAN, G EDWARD RPA Unavailable Unavailable CAN, G EDWARD RPA Unavailable Unavailable CAN, G EDWARD RPA Unavailable Unavailable CAN, G EDWARD RPA Unavailable Unavailable CAN, G EDWARD RPA Unavailable Unavailable CAN, G EDWARD RPA Unavailable Unavailable CAN, G EDWARD RPA Unavailable Unavailable CAN, G EDWARD RPA Unavailable Unavailable CAN, G EDWARD RPA Unavailable Unavailable CAN, G EDWARD RPA Unavailable Unavailable CAN, G EDWARD RPA Unavailable Unavailable CAN, G EDWARD RPA Unavailable Unavailable CAN, G EDWARD RPA Unavailable Unavailable CAN, G EDWARD RPA Unavailable Unavailable CAN, G EDWARD RPA Unavailable Unavailable CAN, G EDWARD RPA Unavailable Unavailable CAN, G EDWARD RPA Unavailable Unavailable Campanaro, Mare Katherine PA Unavailable Unavailable Campanaro, Mare Katherine PA Unavailable Unavailable Campanaro, Mare Katherine PA Unavailable Unavailable Campanaro, Mare Katherine PA Unavailable Unavailable Campanaro, Mare Katherine PA Unavailable Unavailable Campanaro, Mare Katherine PA Unavailable Unavailable Campanaro, Mare Katherine PA Unavailable Unavailable Campanaro, Mare Katherine PA Unavailable Unavailable Campanaro, Mare Katherine PA Unavailable Unavailable Campanaro, Mare Katherine PA Unavailable Unavailable Campanaro, Mare Katherine PA Unavailable Unavailable Campanaro, Mare Katherine PA Unavailable Unavailable Campanaro, Mare Katherine PA Unavailable Unavailable Campanaro, Mare Katherine PA Unavailable Unavailable Campanaro, Mare Katherine PA Unavailable Unavailable Campanaro, Mare Katherine PA Unavailable Unavailable Campanaro, Mare Katherine PA Unavailable Unavailable MARNI DO L JEET Unavailable Unavailable PHYSICIAN, ER Unavailable Unavailable Re-disclosure Warning The records that you are about to access may contain information from federally-assisted alcohol or drug abuse programs. If such information is present, then the following federally mandated warning applies: This information has been disclosed to you from records protected by federal confidentiality rules (42 CFR part 2). The federal rules prohibit you from making any further disclosure of this information unless further disclosure is expressly permitted by the written consent of the person to whom it pertains or as otherwise permitted by 42 CFR part 2. A general authorization for the release of medical or other information is NOT sufficient for this purpose. The Federal rules restrict any use of the information to criminally investigate or prosecute any alcohol or drug abuse patient.The records that you are about to access may contain highly sensitive health information, the redisclosure of which is protected by Article 27-F of the [facility] Public Health law. If you continue you may have access to information: Regarding HIV / AIDS; Provided by facilities licensed or operated by the [facility] Office of Mental Health; or Provided by the [facility] Office for People With Developmental Disabilities. If such information is present, then the following [facility] mandated warning applies: This information has been disclosed to you from confidential records which are protected by state law. State law prohibits you from making any further disclosure of this information without the specific written consent of the person to whom it pertains, or as otherwise permitted by law. Any unauthorized further disclosure in violation of state law may result in a fine or alf sentence or both. A general authorization for the release of medical or other information is NOT sufficient authorization for further disc losure. Encounters Encounter Providers Location Date Indications Data Source(s ) Outpatient Attender: Joni Giliaz 01/09/2021 12:00:00 AM ES [facility] Outpatient 12/24/2020 12:00:00 AM EST [facility] Outpatient 12/17/2020 12:00:00 AM EDT [facility] Outpatient Referrer: Avel Neal MD 12/12/2020 12:00: 00 AM EDT [facility] Emergency Attender: Ascencion Sales MDConsultant: [facility] 11/26/2020 11:10:00 AM EDT - 11/26/2020 12:14:00 PM EDT [facility] Patient discharged. Outpatient Attender: CLAUDETTE FELDER MD Main office - [facility] 11/22/2020 10:00:00 AM [facility] Emergency Attender: MARIANA SÁNCHEZ MDAtt cesario: ILSA FERNANDEZ MDAttender: DEFAULT EDReferrer: DIOGO BRADFORD MD 07A-ERMADULT 11/19/2020 12:00:00 AM EDT - 11/19/2020 01:40:00 PM EDT unable to walk, blood in stool, abdominal pain [facility] unable to walk, blood in stool, abdomina l pain Patient discharged. Outpatient Attender: Boy Sorensen MDReferrer: Kumar Neal MD 11/19/2020 12:00:00 AM EDT [facility] Emergency Attender: ER PHYSICIAN 11/18/2020 12:13:04 PM E DT Lab [facility] Emergency Attender: RICHARD JIMENEZ MDAttender: ER PHYSICIAN 11/18/2020 10:15:00 AM EDT - 11/18/2020 04:11:00 PM EDT MEDS INEFFECTIVE DIZZY [facility] MEDS INEFFECTIVE DIZZY Patient discharged. Emergency Attender: ER PHYSICIAN 11/18/2020 10:15:00 AM E DT [facility] Outpatient Attender: Avel Neal MD CMP Internal Med [facility] [place] 10/24/2020 11:20:00 AM EDT [facility] ([facility]) Outpatient Attender: Anna Greene PA-C [facility]MP [facility] Med at [place] 10/16/2020 02:50:00 AM EDT [facility] ([facility]) Outpatient Attender: Zora Rodriguez PA-C [facility] [place] 10/15/2020 02:11:00 AM EDT [facility] ([facility]) Outpatient Attender: Cameron Walters MD [facility] [place] 10/14/2020 02:03:00 AM EDT [facility] ([facility]) Outpatient Attender: Cameron Walters MD [facility] [place] 10/13/2020 02:06:00 AM EDT [facility] ([facility]) Outpatient Attender: Avel Neal MD [facility]MP [facility] Med [facility] [place] 10/12/2020 08:35:00 AM EDT [facility] ([facility]) Outpatient Attender: Yash Taylor MDAt tender: JEET GRIDER DOAdmitter: JEET GRIDER DO 10/12/2020 06:07:58 AM EDT [facility] Outpatient Attender: Yash Taylor MDAttender: Tong Blood MD 10/11/2020 10:57:00 PM EDT [facility] Outpatient Attender: Yash Taylor MDAt tender: Tong Blood MDAttender: JEET GRIDERAttender: ER PHYSICIANAdmitter: JEET GRIDER 10/11/2020 08:14:00 PM EDT - 10/17/2020 01:35:00 PM EDT LE EXTREMITY WEAKNESS, UNABLE TO AMBULATE [facility] LE EXTREMITY WEAKNESS, UNABLE TO AMBULAT E Patient discharged. Emergency Attender: GAURANG TENA MDConsultant: ARNOLD IC ALEE 10/11/2020 10:30:00 AM EDT - 10/11/2020 06:30:00 PM EDT [facility] Patient discharged. Outpatient Attender: Linda PATINO 021 08:56:32 AM EDT - 10/11/2020 09:51:31 AM EDT [facility] ([facility] ) Outpatient Attender: SOURAV Gaona 10/08/2020 03:10:00 PM EDT [facility] ([facility]) Outpatient Attender: CANDY PATINO Main Office 09/28/2020 0 1:30:00 PM EDT [facility] ([facility]) Emergency Attender: JJ RIOSConsultant: CLINIC CLAUDIA CROW 09/26/2020 02:15:00 PM EDT - 09/26/2020 07:09:00 PM EDT [facility] Patient discharged. Outpatient Attender: LUKASZ CAN RPA 09/23 09:32:22 AM EDT - 09/23/2020 11:21:42 AM EDT [facility] ([facility] ) Emergency Referrer: KORINA TOBIAS MD CP-ERMTXA 09/17/2020 05:54:00 PM EDT - 09/17/2020 10:28:00 PM EDT [facility] Patient discharged. Emergency Attender: [employer]enc[employer] Sales [facility]DC[facility] 09/15/2020 05:46:00 PM EDT - 09/15/2020 07:44:00 PM EDT [facility] Patient discharged. Outpatient Attender: Linda PATINO 021 08:25:50 AM EDT - 08/30/2020 09:14:37 AM EDT [facility] ([facility] ) Outpatient Attender: CLAUDETTE FELDER MD Main office - [facility] 08/13/2020 07:30:00 AM EDT [facility] ([facility]) Outpatient Attender: CLAUDETTE FELDER MD Main office - [facility] 05/31/2020 12:30:00 PM EDT [facility] ([facility]) Outpatient Attender: Linda PATINO 021 11:15:21 AM EST - 04/21/2020 12:19:03 PM EST [facility] ([facility] ) Outpatient Attender: Katherine anaya 03/15/2020 03:40:00 PM EST [facility] ([facility]) Outpatient Attender: Marnie Lassiter Gr Jelly ángela 01/08/2020 07:50:00 AM EST [facility] ([facility]) Emergency Attender: JJ GABRIEL 2019 09:10:00 AM EST - 12/21/2019 11:18:00 AM EST [facility] Patient discharged. Outpatient Attender: JEREMY SAPP MD Main Office 12/14/2019 09:45:00 AM EDT [facility] ([facility]) Outpatient Attender: Satish Nielsen MD Main Office 12/13/2019 10:45:00 AM EDT [facility] ([facility]) Outpatient Attender: Marnie Deymichele motta 12/07/2019 08:35:00 AM EDT [facility] ([facility], [facility]) Immunizations Vaccine Date Status Description Data Source(s) COVID-19 VACC, MRNA(PFIZER)/PF 08/17/2020 12:00:00 AM EDT completed [facility] COVID-19 VACCINE Pfizer 08/16/2020 12:00:00 AM EDT completed [facility] Vaccine Series Complete: NOThis Data was Submitted to [facility] Via [employer] Medications Medication Brand Name Start Date Product Form Dose Route Admi nistrative Instructions Pharmacy Instructions Status Indications Reaction Description Data Source(s) 60 mg 10/17/2020 12:00:00 AM EDT tablet 90 TAKE ONE TABLET BY MOUTH THREE TIMES A DAY TAKE ONE TABLET BY MOUTH THREE TIMES A DAY SOLD: 10/17/2020 [facility] 4 mg 10/17/2020 12:00:00 AM EDT tablet 90 TAKE ONE TABLET BY MOUTH EVERY 6 HOURS NEEDED FOR NAUSEA AND VOMITING TAKE ONE TABLET BY MOUTH EVERY 6 HOURS NEEDED FOR NAUSEA AND VOMITING SOLD: 10/17/2020 [facility] Omeprazole 20 MG Delayed Release Oral Capsule Omeprazole 09/27/2020 12:00:00 AM EDT ORAL active [facility] ([facility] No Active Medications 01/08/2020 12:00:00 AM EST completed [facility] ([facility]) Aluminum Hydroxide 160 MG / magnesium carbonate 105 MG Chewable Tablet Gaviscon Extra Strength 12/13/2019 12:00:00 AM EDT ORAL active [facility] ([facility]) No Active Medications 12/13/2019 12:00:00 AM EDT completed [facility] ([facility]) Sucralfate 1000 MG Oral Tablet [Carafate] Carafate 12/13/2019 1 2:00:00 AM EDT ORAL active [facility] ([facility]) pantoprazole 40 MG Delayed Release Oral Tablet Pantoprazole Sodium 12/13/2019 12:00:00 AM EDT ORAL active [facility] ([facility]) Famotidine 20 MG Oral Tablet Famotidine 12/13/2019 12:00:00 AM EDT ORAL active [facility] ([facility]) Omeprazole 40 MG Delayed Release Oral Capsule Omeprazole 12/13/2019 12:00:00 AM EDT ORAL active [facility] ([facility]) CPAP 10/14/2019 12:00:00 AM EDT active [facility] ([facility], ) Insurance Providers Payer name Policy type / Coverage type Policy ID Covered constitution party ID Covered constitution party's relationship to becerra Policy Becerra Plan Information / [id number] Spouse [id number] [employer] emp [id number] Employee [id number] U [id number] Self [id number] [employer] [place] [id number] S [id number] [place] [employer] - O/P [id number] 19 [id number] [facility] [id number] 2 [id number] HEA [id number] S [id number] [place]AST [employer] [id number] [facility] [id number] Problems, Conditions, and Diagnoses Code Display Name Description Problem Type Effective Dates Data Source(s) Z6841 Body mass index [BMI]40.0-44.9, adult Aaron dy mass index [BMI]40.0-44.9, adult Diagnosis 11/26/2020 11:10:00 AM EDT [facility] E6601 Morbid (severe) obesity due to excess ca lories Morbid (severe) obesity due to excess calories Diagnosis 11/26/2020 11:10:00 AM EDT [facility] I10 Essential (primary) hypertension Essential (primary) h ypertension Diagnosis 11/26/2020 11:10:00 AM EDT [facility] R0789 Other chest pain Other chest pain Diagnosis 11/26/2020 11 :10:00 AM EDT [facility] unable to walk, blood in stool, abdomina l pain unable to walk, blood in stool, abdominal pain Diagnosis 11/18/2020 05:57:00 PM EDT [facility] Q91957 CONTACT WITH AND SUSPECTED EXPOSURE TO C OVID-19 CONTACT WITH AND SUSPECTED EXPOSURE TO COVID-19 Diagnosis 10/11/2020 10:30:00 AM EDT [facility] R079 Chest pain, unspecified Chest pain, unspecified Diagno sis 10/11/2020 10:30:00 AM EDT [facility] R9431 Abnormal electrocardiogram [ECG] [EKG] A bnormal electrocardiogram [ECG] [EKG] Diagnosis 10/11/2020 10:30:00 AM EDT [facility] R531 Weakness Weakness Diagnosis 10/11/2020 10:30:00 AM ED T [facility] I499 Cardiac arrhythmia, unspecified Cardiac arrhythmia, un specified Diagnosis 09/26/2020 02:15:00 PM EDT [facility] R600 Localized edema Localized edema Diagnosis 09/26/2020 02:1 5:00 PM EDT [facility] R42 Dizziness and giddiness Dizziness and giddiness Diagno sis 09/26/2020 02:15:00 PM EDT [facility] Flank Pain Flank Pain Diagnosis 09/17/2020 05:54:00 PM ED T [facility] Y[address] or not applicable Unspecified place or not applicable Diagnosis 09/15/2020 05:46:00 PM EDT [facility] A50CUFC Exposure to other specified factors, ini tial encounter Exposure to other specified factors, initial encounter Diagnosis 09/15/2020 05:46:00 PM EDT [facility] R1011 Right upper quadrant pain Right upper quadrant pain Di agnosis 09/15/2020 05:46:00 PM EDT [facility] E669 Obesity, unspecified Obesity, unspecified Diagnosis 09/15/2020 05:46:00 PM EDT [facility] [id number] Strain of muscle and tendon of front wal l of thorax, initial encounter Strain of muscle and tendon of front wall of thorax, initial encounter Diagnosis 09/15/2020 05:46:00 PM EDT [facility] [id number] Strain of muscle and tendon of back wall of thorax, initial encounter Strain of muscle and tendon of back wall of thorax, initial encounter Diagnosis 09/15/2020 05:46:00 PM EDT [facility] M546 Pain in thoracic spine Pain in thoracic spine Diagnosi s 09/15/2020 05:46:00 PM EDT [facility] K219 Gastro-esophageal reflux disease without esophagitis Gastro-esophageal reflux disease without esophagitis Diagnosis 12/21/2019 09:10:00 AM ES T [facility] A0811 Acute gastroenteropathy due to Spivey a gent Acute gastroenteropathy due to Spivey agent Diagnosis 12/21/2019 09:10:00 AM [facility] R197 Diarrhea, unspecified Diarrhea, unspecified Diagnosis 12/21/2019 09:10:00 AM [facility] R94.31 Electrocardiogram abnormal Electrocardiogram abnormal Problem 12/14/2019 12:00:00 AM EDT [facility] ([facility]) Z71.3 Dietary management surveillance Dietary management shaka veillance Problem 12/14/2019 12:00:00 AM EDT [facility] ([facility]) E66.01 Morbid obesity Morbid obesity Problem 12/14/2019 12:00: 00 AM EDT [facility] ([facility]) R01.1 Heart murmur Heart murmur Problem 12/14/2019 12:00:00 A M EDT [facility] ([facility]) R07.2 Precordial pain Precordial pain Problem 12/14/2019 12:0 0:00 AM EDT [facility] ([facility]) [id number] Gastroesophageal reflux disease Gastroesophageal reflux disease Problem 12/13/2019 12:00:00 AM EDT [facility] Surgeries/Procedures Procedure Description Date Indications Data Source(s) Magnetic Resonance Angiogtaphy Head W/O Contrast Material(S) 11/23/2020 12:00:00 AM EDT [facility] ([facility] Magnetic Resonance Angiogtaphy Head W/O Contrast Material(S) 11/23/2020 12:00:00 AM EDT [facility] Magnetic Resonance Angiography Neck W/O Contrast Materials 11/23/2020 12:00:00 AM EDT [facility] ([facility]) Magnetic Resonance Angiography Neck W/O Contrast Materials 11/23/2020 12:00:00 AM EDT [facility] ([facility]) OFFICE OUTPATIENT VISIT 25 MINUTES 11/22/2020 12:00:00 AM EDT [facility] ([facility]) XTRNL ECG < 48 HR RECORDING 10/30/2020 12:00:00 AM EDT [facility] ([facility]) XTRNL ECG CONTINUOUS RHYTHM PHYS REVIEW&INTERPJ 2020 12:00:00 AM EDT [facility] ([facility]) OFFICE OUTPATIENT NEW 45 MINUTES 10/24/2020 12:00:00 A M EDT [facility] ([facility]) OFFICE OUTPATIENT VISIT 25 MINUTES 10/24/2020 12:00:00 AM EDT [facility] ([facility]) OFFICE OUTPATIENT VISIT 15 MINUTES 10/16/2020 12:00:00 AM EDT [facility] ([facility]) OFFICE OUTPATIENT VISIT 15 MINUTES 10/15/2020 12:00:00 AM EDT [facility] ([facility]) Electrocardiogram Interpretation & Report Only 021 12:00:00 AM EDT [facility] ([facility]) OFFICE OUTPATIENT VISIT 15 MINUTES 10/14/2020 12:00:00 AM EDT [facility] ([facility]) OFFICE OUTPATIENT VISIT 10 MINUTES 10/13/2020 12:00:00 AM EDT [facility] ([facility]) OFFICE OUTPATIENT NEW 45 MINUTES 10/12/2020 12:00:00 A M EDT [facility] ([facility]) OFFICE OUTPATIENT VISIT 25 MINUTES 10/08/2020 12:00:00 AM EDT [facility] ([facility]) ECG ROUTINE ECG W/LEAST 12 LDS W/I&R 09/28/2020 12:00: 00 AM EDT [facility] ([facility]) OFFICE OUTPATIENT VISIT 25 MINUTES 09/28/2020 12:00:00 AM EDT [facility] ([facility]) OFFICE OUTPATIENT VISIT 25 MINUTES 08/13/2020 12:00:00 AM EDT [facility] ([facility] ) MRI BRAIN BRAIN STEM W/O CONTRAST MATERIAL 07/20/2020 12:00:00 AM EDT [facility] ([facility] ) MRI BRAIN BRAIN STEM W/O CONTRAST MATERIAL 07/20/2020 12:00:00 AM EDT [facility] ([facility] ) ELECTROENCEPHALOGRAM W/REC AWAKE&ASLEEP 06/12/2020 12: 00:00 AM EDT [facility] ([facility] ) ELECTROENCEPHALOGRAM W/REC AWAKE&ASLEEP 06/12/2020 12: 00:00 AM EDT [facility] ([facility] ) TSTG ANS FUNCJ CARDIOVAGAL INNERVAJ PARASYMP 12:00:00 AM EDT [facility] ([facility] ) TESTING AUTONOMIC NERVOUS SYSTEM FUNCTION 06/01/2020 1 2:00:00 AM EDT [facility] ([facility] ) OFFICE CONSULTATION NEW/ESTAB PATIENT 60 MIN 12:00:00 AM EDT [facility] ([facility] ) CV STRS TST XERS&/OR RX CONT ECG PHYS SI&R 05/01/2020 12:00:00 AM EDT [facility] ([facility]) ECHO TTHRC R-T 2D W/WOM-MODE COMPL SPEC&COLR DOP 02/26 12:00:00 AM EST [facility] ([facility]) UPPER NDSC BIOPSY SINGLE/MULTIPLE 01/16/2020 12:00:00 AM EST [facility] ([facility]) ECG ROUTINE ECG W/LEAST 12 LDS W/I&R 12/14/2019 12:00: 00 AM EDT [facility] ([facility]) Results ID Date Data Source [id number] 11/27/2020 07:21:00 AM EDT [facility] [address] [place] [address] RESPIRATORY CARE REPORT ==== ---------NAME------- NUMBER SEX AGE ADMIT DISC. XRAY# F/C DENISE GHOSH N [id number] F 30 11/26/20 11/26/2019781023 SB4 E/R DATE OF : 1990 M/R# [id number] #: [id number] RM VT-06 LOCATION: EMERGENCY DEPT EKG 39079 COMP LETE:11/26/20 15:07 [place] [address] PHYSICIAN: DONATO Sherman Name Value Range Interpretation Code Description Data Randa rce(s) Supporting Document(s) ID Date Data Source [id number] 11/27/2020 05:37:47 AM EDT [facility] Name Value Range Interpretation Code Description Data Randa rce(s) Supporting Document(s) ED Provider Note [facility] VHTFLg2xLuYCApMk80/IBDqfVSWgb4DsYMgfQVu9EBqoOXVrV8TzAVK6kO7pEWC9NGgSJkCxLuCmCQWg lbm ZkJnnSFgRcSFDaBfzFIsArNDysKaiopXFmYJ6JvUI0FHKbK02mYLUzMVXkO9AaLJJ9NrY+Ey9GQRQeuL KhSG4ZDkyW8M8Md5nKRa4V5s4DCPEQrvsCOgKCWwrXYAwtHniS2dJaNnNIdSgjYvQFtvR/Vtquxwx0aw POONyCYjublKH7Z1/dAyCOU/35zTkKPCGEU/zz+dcg Bc2i9naCH73cIl8+K3j5zS5rKrgUslD5Gi0Wv2x5zX0mVq7TIa9BiItmE3+g9Gvoy4YmuZa84d+/annette/ OfCM0tb6lOabjO8hZKAPYRJd1nJBOiZ8SaZI1L29XPkDOGqfIXs7orr8STzSuEbKuWFnwezFbzAuTpU9 vlrbgB/eqROLxgsCDFgsMFiiYMxk7m++KuHTifNhsJ Yjmd/YwAc4Tt4O1ArQ1c9DZMdMv1W+SjrZAjqGwytzrxabWCMfR1g6kFcBpnEQ2iGphM5nL+EipwF2Qh YDacuwA+5HdvPcZjMtprSB0hXlElTZOK85SbRQEI+bgUsgsvaZXRSeW3kT0bPgiSF+JZZlqbn5oUejRl 9LquctlxtqSHMgKFaDmIedXteGU47Brv+SBc8Ct6i6 lYtNsjXcEkG7dYspWgzMWq6ZCU9b4ZMMaGntiOcfEvmKYXTM+JLj7dFrkldBGNV4GG7pV5p24poWPKr2 vsk2xVtI1ofldJUtM0MWwzi/U+6dko6MHzWXZfP3NPlkjA2qMDqIJwTUR4L4agpyZlH02DgkGWob/KWM vyv470svhh5qccrZlohbPxbjekBApdpznKzN0j8BeJ [file] yZxSGc7lMZF+VREz9YJuS4vqkeIHxRiFuaU+K+f+[employer] [file] atMKOMUn8B ID Date Data Source [id number] 11/26/2020 11:10:00 AM EDT [facility] 1 OrderSheet [facility] Emergency Department [address] [place] [address] Phone #: ext- [phone] 11/26/2020 11:09 Patient: AUGIE SINGER Sex: F : 1990 Age: 30yWEIGHT:124.7 kg (M) HEIGHT:66 inches (S) BMI:44.4ALLERGIES: No Known Drug AllergyCHIEF COMPLAINT: chest painDIAGNOSIS: Chest wall painLAB ORDERSOrder Description Priority Entered Acknowledged InitialedDIAGNOSTIC STUDY ORDERSOrder Description Priority Entered Acknowledged InitialedMEDICATION/IV/DRIP/FLUID ORDERSOrder Description Priority Entered Acknowledged InitialedAcetaminophen PO 11:33 11/26/2020 11:42 Sorbero,1000 mg (NOW x1) Ascencion Sales ; Eder CorreaGENERAL ORDERSOrder Description Priority Entered Acknowledged InitialedEKG 11:33 11/26/2020 11:34 Donato Poe Jack ; Suellen SERVIN[Electronically signed by Rose Marie Laws R.N. (12:14 11/26/2020)][Electronically signed by Ascencion Sales (15:59 11/26/2020)][Electronically locked by Rose Marie Laws R.N. (12:14 11/26/2020)] Name Value Range Interpretation Code Description Data Randa rce(s) Supporting Document(s) ID Date Data Source [id number] 11/26/2020 11:10:00 AM EDT [facility] 1 Medication Reconciliation Report [facility] Emergency Department [address] [place] [address] Phone #: ext- [phone] 11/26/2020 11:09 Patient: AUGIE SINGER Sex: F : 1990 Age: 30yWeight: 124.7 kgHeight/Length: 66 in.BMI: 44.4ALLERGIES: No Known Drug AllergyThe patient's Home Medications are listed below:CONTINUE TAKING THE FOLLOWING MEDICATIONS: Pepcid Oral Protonix OralThe source(s) of the original Home Medication information:patientThe following Medications were given to the patient in the Emergency Department:Acetaminophen [PO] PO 1000 mg, administered: 11:42 11/26/2020The following Medications were prescribed to the patient:None. Name Value Range Interpretation Code Description Data Randa rce(s) Supporting Document(s) ID Date Data Source [id number] 11/26/2020 11:10:00 AM EDT [facility] 1 Medication Administration Record [facility] Emergency Department [address] [place] [address] Phone #: ext- [phone] 11/26/2020 11:09 Patient: AUGIE SINGER Sex: F : 1990 Age: 30yWeight: 124.7 kgHeight/Length: 66 inBMI: 44.4ALLERGIES: No Known Drug Allergy Date/Time Medication Administered Medication OrderedGiven ACETAMINOPHEN [PO] Acetaminophen PO 1000 mg11:42 11/26/2020 Dose: 1000 mg Tablets PO (NOW x1)Eder Sykes R.N. Name Value Range Interpretation Code Description Data Randa rce(s) Supporting Document(s) ID Date Data Source [id number] 11/26/2020 11:10:00 AM EDT [facility] 1 General Instructions [facility] Emergency Department [address] [place] [address] Phone #: ext- [phone] 11/26/2020 11:09 Patient: AUGIE SINGER Sex: F : 1990 Age: 30yChest wall painINSTRUCTIONSWarnings: Further evaluation is necessary.GENERAL WARNINGS: Return or contact your physician immediately if your condition worsens orchanges unexpectedly, if not improving as expected, or if other problems arise.Your Current Medications: Your current home medications have been reviewed.CONTINUE TAKING THE FOLLOWING MEDICATIONS:Pepcid Oral.Protonix Oral.Understanding of the discharge instructions verbalized by patient.Follow-up with: [facility] Respective Team [place], , , [id number], , [place], [address] Follow up in two days if not better. Call for an appointment. Reason for referral: evaluation. ADDITIONAL INFORMATIONChest Wall Pain: Costochondritis 2 General Instructions [facility] Emergency Department [address] [facility], [place] [address] Phone #: [phone]- [phone] 11/26/2020 11:09 Patient: AUGIE SINGER Sex: F : 1990 Age: 30yThe chest pain that you have had today is caused by costochondritis. This condition is caused by aninflammation of the cartilage joining your ribs to your breastbone. It's not caused by heart or lungproblems. Your healthcare team has made sure that the chest pain you feel is not from a lifethreatening cause of chest pain such as heart attack, collapsed lung, blood clot in the lung, tear in theaorta, or esophageal rupture. The inflammation may have been brought on by a blow to the chest,lifting heavy objects, intense exercise, or an illness that made you cough and sneeze a lot. It oftenoccurs during times of emotional stress. It can be painful, but it's not dangerous. It usually goes awayin 1 to 2 weeks. But it may happen again. Rarely, a more serious condition may cause symptomssimilar to costochondritis. That's why it's important to watch for the warning signs listed below.Home careFollow these guidelines when caring for yourself at home: If you feel that emotional stress is a cause of your condition, try to figure out the sources of that stress. It may not be obvious. Learn ways to deal with the stress in your life. This can include regular exercise, muscle relaxation, meditation, or simply taking time out for yourself. You may use acetaminophen, ibuprofen, or naproxen to control pain, unless another pain medicine was prescribed. If you have liver or kidney disease or ever had a stomach ulcer, talk with your healthcare provider before using these medicines. You can also help ease pain by using a hot, wet compress or heating pad. Use this with or without a medicated skin cream that helps relieves pain. Do stretching exercise as advised by your provider. Typically rest is beneficial for the first few days. Avoid strenuous activity that worsens the pain. 3 General Instructions [facility] Emergency Department [address] [place] [address] Phone #: ext- [phone] 11/26/2020 11:09 Patient: AUGIE SINGER Sex: F : 1990 Age: 30y Take any prescribed medicines as directed.Follow- up careFollow up with your healthcare provider, or as advised.When to seek medical adviceCall your healthcare provider right away if any of these occur: A change in the type of pain. Call if it feels different, becomes more serious, lasts longer, or spreads into your shoulder, arm, neck, jaw, or back. Shortness of breath or pain gets worse when you breathe Weakness, dizziness, or fainting Cough with dark-colored sputum (phlegm) or blood Abdominal pain Dark red or black stools Fever of 100.4F (38C) or higher, or as directed by your healthcare provider [phone] [employer]. [address] [place] [address]. All rights reserved. This information is not intended as asubstitute for professional medical care. Always follow your healthcare professional's instructions. You have been given the following additional information: Chest Wall Pain, Cost ochondritis(Electronically signed by [employer] 11/26/2020 15:59) Name Value Range Interpretation Code Description Data Randa rce(s) Supporting Document(s) ID Date Data Source [id number] 11/26/2020 11:10:00 AM EDT [facility] 1 Clinical Report - Nurses [facility] Emergency Department [address] [place] [address] Phone #: ext- [phone] 11/26/2020 11:09 Patient: AUGIE SINGER Sex: F : 1990 Age: 30yTRIAGEArrived by private vehicle. Historian: patient. Accompanied by family. ( presents with with c/opassing out about 1/2 hr ago, states she stood up and passed out, also c/o chest pain for past month).Triage time: 11:20 11/26/2020. Acuity: LEVEL 3.Chief Complaint: SINGLE SYNCOPAL EPISODE.Alert. No acute distress.This occurred today. Witnessed: Event was witnessed.Treatment SOCIAL STUDIES DEPARTMENT CHAIR:None.SEPSIS SCREEN: SIRS SCREEN NEGATIVE. SEPSIS SCREEN NEGATIVE. No suspected or confirmedsigns of infection present. --11:33 11/26/20 Suellen Poe RN11:20 11/26/20. BP: 134/61. MAP: 85. HR: 77. RR: 16. O2 saturation: 100%. Temp: 98.3 F (oral).--11:33 11/26/20 Suellen Poe RN12: 14 11/26/20. Pain level now 6/10. --12:14 11/26/20 Rose Marie Laws, RArsen.Weight: 124.7 kg measured. Height/Length: 66 inches Per Patient. BMI: 44.4. --11:32 11/26/20 Suellen Poe RN.MedicationsPepcid Oral. --11:23 11/26/20 Suellen Poe RN Protonix Oral. --11:23 11/26/20 Suellen Poe RN.AllergiesNo Known Drug Allergy. --11:22 11/26/20 Suellen Poe RN.PROBLEMS:Concussion.Contusion.Dizziness.Atypical Chest Pain.Bronchitis.Gastroenteritis.Myofascial Strain.Pedal Edema. 2 Clinical Report - Nurses [facility] Emergency Department [address] [place] [address] Phone #: ext- [phone] 11/26/2020 11:09 [id number] : 1990 Age: 30y Weakness. Gastroesophageal Reflux Disease. Hypertension. --11:23 11/26/20 Suellen Poe RN Enlarged thymus. --11:24 11/26/20 Suellen Poe RN. Medication/allergy information source: the patient and patient's previous visit record. --11:33 11/26/20 Suellen Poe RN. ADDITIONAL SURGERIES: Endoscopy. --11:11/26/20 Suellen Poe RN. History PAST MEDICAL HX: Immunizations: (covid vaccine). SOCIAL HX: Never smoker. No alcohol use or drug use. She was offered HIV testing but declined and hepatitis C testing but declined. She has not traveled outside the [place] Infectious disease exposure: No infectious disease exposure. SELF HARM ASSESSMENT: Self harm assessment was performed. The patient answered "no" to the question(s) "Have you recently felt down, depressed, or hopeless?". ABUSE ASSESSMENT: No report of abuse. NUTRITIONAL RISK ASSESSMENT: The nutritional risk assessment revealed no deficiencies. FUNCTIONAL ASSESSMENT: Functional assessment: no impairments noted. LEARNING NEEDS ASSESSMENT: The learning needs assessment revealed no barriers. FALL RISK ASSESSMENT: Fall risk assessment completed. No risk factors identified. SKIN INTEGRITY ASSESSMENT: Skin integrity risk assessment completed. No skin integrity risk identified. --11:33 11/26/20 Suellen Poe RN. FAMILY HX: Father: Atrial Fibrillation. --11:44 11/26/20 [employer] Sales.NURSING PROGRESS NOTESMonitoring of patient in place. Patient gowned. Reassurance given. Two patient identifiers checked.Bed placed in lowest position. Brakes of bed on. Patient ready for evaluation. --11:27 11/26/20Suellen Poe RN Monitoring of patient in place. Patient gowned. Reassurance given. Two patient identifiers checked. Bed placed in lowest position. Brakes of bed on. Patient ready for evaluation. --11:33 11/26/20 Suellen Poe RN 3 Clinical Report - Nurses [facility] Emergency Department [address] [place] [address] Phone #: ext- [phone] 11/26/2020 11:09 Patient: AUGIE SINGER Sex: F : 1990 Age: 30y 11:33 11/26/20. BP: 129/80. MAP: 96. HR: 99. RR: 20. O2 saturation: 100%. --11:33 11/26/20 Suellen Poe RN Correction. --11:34 11/26/20 Suellen Poe RN 11:33 11/26/20. BP: 129/80 taken while standing. MAP: 96. HR: 99. RR: 20. O2 saturation: 100%. --11:33 11/26/20 Suellen Poe RN 11:35 11/26/20. BP: 129/80. HR: 76. RR: 11. O2 saturation: 98%. --11:35 11/26/20 [facility] 11:42 11/26/2020 Acetaminophen PO Tablets 1000 mg given. Allergies verified and confirmed 5 rights. Information reviewed with patient including reason for taking this medication, signs of allergic reaction and precautions. Verbalizes understanding. --11:43 11/26/20 Eder Sykes RMary 12:03 11/26/20. BP: 133/94. HR: 76. RR: 13. O2 saturation: 99%. --12:03 11/26/20 Suellen Poe RN.DISPOSITION / DISCHARGE Condition at departure: stable. No learning barriers present. Discharge instructions provided and reviewed with the patient. Patient verbalized understanding. Written instructions provided in Belgian. The patient was discharged by the physician. She was discharged home and accompanied by spouse. She left ambulatory and via private vehicle. Spouse driving. --12:13 11/26/20 Rose Marie Laws R.N. 12:13 11/26/20. BP: 121/87. HR: 72. RR: 18. O2 saturation: 100%. Temp: 98.8 F. Pain level now 07/26. --12:13 11/26/20 Rose Marie Laws R.N.Locked/Released at 11/26/2020 12:14 by Rose Marie Laws R.N. Name Value Range Interpretation Code Description Data Randa rce(s) Supporting Document(s) ID Date Data Source [id number] 11/26/2020 11:10:00 AM EDT [facility] 1 Clinical Report - Physicians/Mid Levels [facility] Emergency Department [address] [place] [address] Phone #: ext- [phone] 11/26/2020 11:09 [id number] Sex[facility] : 1990 Age: 30y Time Seen: 11:29 11/26/2020. Arrived- By private vehicle. Historian- patient.HISTORY OF PRESENT ILLNESS Chief Complaint: CHEST PAIN. Quality not described as indigestion. It is described as located in the central chest area. This started several days and is still present. It has been constant. At its maximum, severity described as moderate. When seen in the E.D., severity described as moderate. Modifying factors- (to touch). No nausea, vomiting, difficulty breathing or diaphoresis. (Diagnosed with enlarged thymus on last CT scan). No additional chest pain. (Patient got lightheaded and fainted when she stood up this morning at home. Passed out briefly. No reports of urinary incontinence or seizure. She has never passed out before. States her heart rate goes up when she stands.). Similar symptoms previously. Patient has had similar symptoms several times. Recent medical care: The patient was seen recently in the emergency department and hospitalized.REVIEW OF SYSTEMSNo fever, cough, pedal edema, calf pain or headache. No enlarged lymph nodes or joint pain. Sheexperienced syncope. All other systems reviewed and are negative.PAST HISTORYSee nurses notes. Hypertension. No history of heart rhythm problems. Problems: Heart Murmur. Enlarged thymus. Gastroesophageal Reflux Disease. Hypertension. Additional Surgeries: Endoscopy. Medications: Protonix Oral. Pepcid Oral. Allergies: No Known Drug Allergy.SOCIAL HISTORY 2 Clinical Report - Physicians/Mid Levels [facility] Emergency Department [address] [place] [address] Phone #: ext- [phone] 11/26/2020 11:09 [id number] Sex: F : 1990 Age: 30y Never smoker.FAMILY HISTORYFather: Atrial Fibrillation.ADDITIONAL NOTESThe nursing notes have been reviewed.PHYSICAL EXAMVital Signs: 11/26/2020 11:35 BP: 129/80. MAP: 96. HR: 76. RR: 11. O2 saturation: 98%.11/26/2020 11:33 BP: standing 129/80. MAP: 96. HR: 99. RR: 20. O2 saturation: 100%.11/26/2020 11:20 BP: 134/61. MAP: 85. HR: 77. RR: 16. O2 saturation: 100%. Temp: 98.3 F.Appearance: Alert. Oriented X3. Anxious.Eyes: Eyes normal inspection.ENT: Nose normal. Pharynx normal.Neck: Normal inspection. Neck supple.CVS: Normal heart rate and rhythm. Heart sounds normal. Pulses normal.Respiratory: No respiratory distress. Chest pain reproducible with palpation of the sternum. Painlessinspiration. Breath sounds normal. No decreased air movement.Abdomen: Soft and nontender. Bowel sounds normal. Obese.Back: Normal external inspection.Skin: Skin warm and dry. Normal skin color. No rash. Normal skin turgor.Extremities: Extremities exhibit normal ROM. No lower extremity edema.Neuro: Oriented X 3. No motor deficit. No sensory deficit.LABS, X-RAYS, AND EKGEKG: EKG time: 11:11 11/26/2020. No acute ischemia. Rate: 70. Normal JELLY. Normal QRS complex.No Q waves. Normal axis. Normal ST and T waves and QT. EKG unchanged when compared withprior EKG. The study has been interpreted contemporaneously by me. Interpretation time: 11:.PROGRESS AND PROCEDURESCourse of Care: 11:46 11/26/20. Reproducible tenderness to chest wall and sternum. Multiple CT of headand chest done. No cardiac risk factors. Not on oral contraceptives. enlarged thymus unlikely to causechest pain. Syncope was vasovagal. No signs of tachycardia, postural hypotension. EKG normal. NormalQT intervals. Her last EKG's have been normal. No clear evidence of POTS. No signs of anemia over thelast 2 months. 12:02 11/26/20. Patient wishes to have another CT scan of chest. I instructed her it would not be mckee to re-scan her given the fact that the pain is chest wall and musculoskeletal. She already had 4 scans in last two months, plus the MRI and scans she had done at [facility]. EKG also shows no pericarditis. Old medical records ordered. Patient has had multiple ED visits. 3 Clinical Report - Physicians/Mid Levels [facility] Emergency Department [address] [place] [address] Phone #: ext- [phone] 11/26/2020 11:09 [id number] Sex[facility] F : 1990 Age: 30y Disposition: Discharged. Condition: stable.CLINICAL IMPRESSION Chest wall painINSTRUCTIONS Warnings: Further evaluation is necessary. GENERAL WARNINGS: Return or contact your physician immediately if your condition worsens or changes unexpectedly, if not improving as expected, or if other problems arise. Your Current Medications: Your current home medications have been reviewed. CONTINUE TAKING THE FOLLOWING MEDICATIONS: Pepcid Oral. Protonix Oral. Understanding of the discharge instructions verbalized by patient. Follow-up with: [facility] Respective Team [place], , , [id number] [facility] [place], , [place], [address] Follow up in two days if not better. Call for an appointment. Reason for referral: evaluation.(Electronically signed by [employer] Sales 11/26/2020 1 5:59) Name Value Range Interpretation Code Description Data Randa rce(s) Supporting Document(s) ID Date Data Source [id number] 11/22/2020 12:22:45 PM EDT [facility] Name Value Range Interpretation Code Description Data Randa rce(s) Supporting Document(s) ED Provider Note [facility] WOTNZk2pWqKOGnGa15/SQOgnJMPom6AhNVscCXn4CXnoJOVjI9HfZCX2oL8qCGI3LSpPNuHxMgJpJAU7 [facility] [file] pviG9EusD/roll slicing machine tender/YbPNN66zO5WOa5GkmxF2z7H9vE20F/8B0J9ahlXg4h6T+xzhj4HRA/EgyQOHp9TqHD [file] VPRg0K ID Date Data Source [id number] 11/20/2020 01:16:26 AM EDT [facility] Name Value Range Interpretation Code Description Data Randa rce(s) Supporting Document(s) Consultation [facility] SMNEFp6jThMBYoIb56/KXLndSXDun7LhJNndQCm3QZduUZMzI4KfRDX7mY1bBJM5DZkNQtVkYpAaWDY2 lbm [file] ICAgICAgICAgICAgICAgICAgICAgICAgICAgICAgICAgICAgICAgICAgICAgICAgICAgICAgICAgICAg ICAgICAgICAgICAgDQogICAgICAgICAgICAgICAgIC AgICAgICAgICAgICAgICAgICAgICAgICAgICAgICAgICAgICAgICAgICAgICAgICAgICAgICAgICAgIC AgICAgICAgICAgICAgICAgICAgICAgDQogICAgICAgICAgICAgICAgICAgICAgICAgICAgICAgICAgIC AgICAgICAgICAgICAgICAgICAgICAgICAgICAgICAg ICAgICAgICAgICAgICAgICAgICAgICAgICAgICAgICAgDQogICAgICAgICAgICAgICAgICAgICAgICAg ICAgICAgICAgICAgICAgICAgICAgICAgICAgICAgICAgICAgICAgICAgICAgICAgICAgICAgICAgICAg ICAgICAgICAgICAgICAgDQogICAgICAgICAgICAgIC AgICAgICAgICAgICAgICAgICAgICAgICAgICAgICAgICAgICAgICAgICAgICAgICAgICAgICAgICAgIC AgICAgICAgICAgICAgICAgICAgICAgICAgDQogICAgICAgICAgICAgICAgICAgICAgICAgICAgICAgIC AgICAgICAgICAgICAgICAgICAgICAgICAgICAgICAg ICAgICAgICAgICAgICAgICAgICAgICAgICAgICAgICAgICAgDQogICAgICAgICAgICAgICAgICAgICAg ICAgICAgICAgICAgICAgICAgICAgICAgICAgICAgICAgICAgICAgICAgICAgICAgICAgICAgICAgICAg ICAgICAgICAgICAgICAgICAgDQogICAgICAgICAgIC AgICAgICAgICAgICAgICAgICAgICAgICAgICAgICAgICAgICAgICAgICAgICAgICAgICAgICAgICAgIC AgICAgICAgICAgICAgICAgICAgICAgICAgICAgDQogICAgICAgICAgICAgICAgICAgICAgICAgICAgIC AgICAgICAgICAgICAgICAgICAgICAgICAgICAgICAg ICAgICAgICAgICAgICAgICAgICAgICAgICAgICAgICAgICAgICAgDQogICAgICAgICAgICAgICAgICAg ICAgICAgICAgICAgICAgICAgICAgICAgICAgICAgICAgICAgICAgICAgICAgICAgICAgICAgICAgICAg QWAkYNXuOEDyGUUpMJJsUTRxOIFhMMl4S6guINOzET KxMD4sGCx8Au9+OKfQYmFgZXX2bvFaoU7NLH0ms9OqKFzmJHSze4QsEPi7ET6HOCMiCFtnUL4HUYydqb 0XYZWsJKFgaVEZj2cyMoUdYMX6UKFmOleiHT2YONReO9ijwwEqOIAbMAOCMCmxBBHSTDowXVWITWEnQS NsLkLoUfXaALUlJVLeOWKQSD2PDyFbS4XakV05OVQN Cj4+SEbuuzKzIygYCkSgNMJxs7XpGDi7ZI2PDJKjIaxye3OsPvTuWRATCQdoWD4OHGT2IXOrZENqGw7K IKJqZ864ypFaAB7XEm9FThKyMS9stf7SWpXzNBMrGohCFxz5OChdVT5ItSXgVImAg73raKp4jmQhiVGE IYdeIAdilQvtcoxnUHYIYjCncZJqSB16HgYqNpUuIT U7RhThXQ1eROveQG3OMSU5VQsoNUHsFXNkY5tCIpSzRTJkUUPtlHgyMC6ZCoDmY9XmlaHlbEDqFsUrPL INCj4+ULlckxLxFsjJLqZ5FIZzc7LzTRr5YD6MJSSvYQdwMH9IDYGjbH9pTItxYX9FRwYsXBZxILYHKx NhJ25gqHOcVJr6T2DsVkMmKADbHapcQCHbCIaaMoFi ZXMgWyBdDQogID4+ID4+MAagGV4KIRyiynEhLBGzUt9RWRIaWDTwSP0vEMYhRXVrR6B9cHpdKODRWsOh O5xpnqpmNA0qBIGpS139vEhvoxLzIVCrNIYtZa9EVFTxHAH2OJXzzCQuGmJwOFIBMWqcEL6NzUDlEUJ0 aQ7mWXgyONNyABCwL0jJYcYexByzJD00dBenluEwqM BdDQo+Ea2NDM2hg0CeVIi6ziNgQHwmMSW0DDwdOJEdCFVcRQXpTQM6ZXS3QUBXDcHiQQLpADBiTYvpFL VoARDofw8KLCOaMLYvBnLbXaEnWSSkKLUmHSwdAJUuBME9WqO2QJRsABZzDW6YVpClHDNeHQPrMMtnSW BbOCLdss2NHDSkELVwHPD5IAOnTGJiNSAgHIefJREe OHW0OOR1UCSnRGUoIA8FJyRlHPSdZNvjRCzpHGDgRNGicj5LXEBjFBPyTqAcEIJnYGUkAQRaTVjvRXEq YXClOJRgOKLkCGGpVG0CJeRvXXKwLGP9OdPbQAOtJLDdnx2LPXChYZKgLFVlIwJnJBYnFNEpVBxyPXVt ZQI2GwJ4WOXlSOFwAM8ZWpQfBJZsKKe4HFItZNGxGH Tjns3FCTFrIFIcOTF5SNUdFUPlSSRvAJkgVYEnTLI1KRY5HPNdNUWyXR7FTnYpKNBxQOs6SjHaIMAyKX Wysv3ASAEkMTYhTDUtGZVeLEBgRJElCFeeKJOfNFOnFZQpIHHdTURfSG8EUfBlZDVjCwSmSHJgYYHmGR Fnyx2XZQZrCZOwEVl9IcCdYKKwOKNeZNivVMXrEILb XGq1LQRsHDWuOD4ROiLrGAUoFbSsXmXvGWZeAOIasy8REXOaPKJrMaVjXzAuHGOxXMVrBGjeXTLsOCGt OJYlTKPtUDNzWM6NHbOrOZEbQqN3YXStORFqRYAnwg4ALDNlBEMiJFJ7SNDdKJRyDDWeLJceATPwNMF7 IVX0LYEmOPHjTE0GXpEcJEMzDeB5IJWkRUFpNFCzdl 2FYKJeFKFxUQe7ILOcBHEyIXJaZAwaEEChBME7JXFjFFHjJDXxHN8NTpMfOSGeUcB7CDzfZBRxFZKtgp 0KWMQjYDPcJyh3VTPyEZEnLXXfLIgxSPTrPZU1TNA8DOItSMSqIQ6VAyMaASSzJrnlASCuTMXrKROetu 2TnHMpiWkmtu6ULOnTUv8LpXznQTY1RKtbBo4mfIGi UNJfVFIJBp7LcgYjYERcMZGZOIkaMKWlCUH5QIX7SiJoInhaQzFxNbPwSGIwEdFrBPUiBkewQhSgUaS3 DvP5Iar9QGAhY5YcTmLwNPC4AhHpYMUySlZwPFOaSYB+YL4kQMk+Ae4Uc2TmvnF3ppIuOGupDOX5YG3G XLKPI7EXZm== ID Date Data Source [id number] 11/19/2020 01:07:11 PM EDT [facility] CT HEAD WITHOUT CONTRAST [id number] RESU LTInterpreted by:Alan Dale MDHISTORY: Weakness.TECHNIQUE: Noncontrast CT head. Automated dose-lowering techniques and/or adjustment according to patient size were utilized for this exam.COMPARISON: NoneFINDINGS:There is no evidence of acute intracranial bleeding or extra-axial fluid collection. No evidence of acute territorial infarct, edema or mass effect. The barakat-white matter distinction is preserved throughout. The ventricles are midline and normal size. The basal cisterns are patent.The calvarium is intact. The visualized paranasal sinuses and mastoids are cells are well-aerated.IMPRESSION: No evidence of acute intracranial process.This document has been electronically signed by Alan Dale MD on 11/19/2020 1:05 PM Name Value Range Interpretation Code Description Data Randa rce(s) Supporting Document(s) ID Date Data Source [id number] 11/19/2020 09:15:08 AM EDT [facility] XR CHEST FRONTAL AND LATERAL [id number] RESULTInterpreted by:Troy Jules MDINDICATION: Chest pain.TECHNIQUE: XR CHEST FRONTAL AND LATERAL [id number], 11/19/2020 8:04 AM.COMPARISON: None available.FINDINGS: The chest wall is normal in appearance.Cardiomediastinal contours are normal.There is no evidence of pleural disease.The lungs are clear.IMPRESSION: No acute radiographic evidence of cardiopulmonary disease.This document has been electronically signed by GERARDO Jules on 11/19/2020 9:13 AM Name Value Range Interpretation Code Description Data Randa rce(s) Supporting Document(s) ID Date Data Source [id number] 11/19/2020 08:44:52 AM [facility] Name Value Range Interpretation Code Description Data Randa rce(s) Supporting Document(s) [facility] UDIYZt4yLjKCLcYya1UmFdBuFGZxFD0kjfr5F5A1oXPoA2CgjIUel0oxP8QmA0CqTNGlFRLVZF6ZxVNf jb2 [file] A14WAC0GknXGRMkYwfqpVJIRjjJYiIh3BQZCFtuRVB0JkSSJHLhAQCzVCtMFNSKe2XysEWFVVGBEIAMR 90lKP8NAJRpyhRVCtDEDEjXKzM7VpsIZSBop9gNSf3 4qf65qvnJlRjzWOKsWGMivmQlnTpQNzGcCyLruFCgJ5/4Xn01PJhyiNM608mp4/jGTxZymlO7lST96n2 79DCskDK9BnmnEphoC11yG90xeJmJ0+ad2KGJmdEsg/b5kdlyoS74JD5rnXuirwJD821Ca75h9iyDijX OXmqS1cOtkGPmI6Oz0+/Onj3u9cVMBZBIy5O8eWKCJ N26TWIQ9SjcDpnAcFVpQiEo6udHcLR3wA+1r5/W3H13hCrCOT1DCkMbiofdGlHUW2WqmTalShltkRYJS 6KuaelyGMG8UwDmlJgB5imqvDXXaTXIrXKZBYWnJBJqAVDI0QVR8263ajzRN9NgnmQJsmJiJKd5JjBDY E10rcT472yiJFy6xOpsCycmGmQB2rqiY9fWTAmadQi ITQEbY9AE+2RLtjHYA09I9+Pr6Mr1q00quatvQF0dSlpglgAX1Z/ucGMP2T8Rj8UsjNxlFCKOT36LSfC mbqwb1WBAszgXXXKwnaagCDIoCAiKRACVV1GiEvudarE8mbdOIVoneztVA1Vl6m6C0bLQ3es+35Hf+YT R/CEw8nZ5HfosTHtZ+Hx/cKuPdjKX4L/BvLEkT xxBTLw/AmeGLnoWPueadRY+46S00k1hiobQOhwqqkX+71A7Nn0mf0vL4blPFq+eAgJ4htHOufl67tgb1 v8JhIRWiyaP3k4tnscWH2pekyp305PIWqCm078CRX9o/s6JNa+bzQi4Lw947NguRXCyNFRiCwb4t6mZZ 6766k8R+17BkWsfb+/xLW6BEEv1w6keUch99YMbwk7 KwwigwjemWLte/TjG01AY/CsNwtAH2xRF1qhVnk8FJ4buMy80Aad3REQn8OixsglErSHW5nT734hUJSE V3Eql4oXP4zdfDSrytC8hxZuzGgiCiENwcphUSRrkrjiBC1peElmp0duwbQJwtYQCMmwMuwhfyUZisI4 Cw2EdmhExvUflL35St/qrHSAcjcN5UffAZ1+MQVoI0 392fGdQCUbUs0G+mDQB/w+5QjygCuYOq3EqaULTSzPTYHiADXFhhTrusU7bcOg2WrveDt9Pb99H+edjf ZTmkcm44fmxJIEBoOtSPpkgFy49rXQI8/ruSJIoIXsuIUoSBr0rgFX/K3JtF679tWV+KWqchn6ijTiQR uCsy+113iAJsZtWUpqsVoRwA6v+sDpA/Francisco J+wLkz6Y HBMncutGnmizE+rM7GPPmxJPWxIiO591MHk6btR4GWthDGkMgrrG+BYurVswKh8QXunAwv2B+9VZew7G 42AxDlYnMliHfWGxL/H1JXF1eoH2BiiWniXGPgBsTLKuWM5MxXIWUj7m8d3yh04mxnpZDF14p3IF6DYb JxK7dPyXNK5jZnl482EnZzZ0kBjEIK1r+mBjTPSGMd KvGmMFcNa55L0+cM47e+dBGjYJvsR4fHjXmJMALEQAnAE+nitTkepItJkm8OR1uUBE4EEW9TF+4Jx3dk VqnBLqsTKJUQHiQXsRjYfZQeW0t9Pr6Ekn0Vb1ws63Q+oqdxPMgabx89cmV6MKY657zxhKQ1+MpZCK75 Lf2b63J0+7UiDlcVEs9iEis34kbue9kC0Zkt0eTSVD RBaRRWQ/tw3Ph8r4V01JG+UOUi53vjiV2ts2j4t16/mOEWvf8+0j1r4/ppdmDisJIKToPKN13Qu79csj cjC/SDbqy7HvA8l855XzRStwnX5AhmOQ/YeIwYh6H7l410u2m+PzNQxAS2gz1e7nzAnq2Gt4nwc52UJ5 kPgSdz2mHd4F0SNqyPaRGk3Jwq9qKTa7UZxXD9bmlD pfNzHugpbacXHz7adLNsSgnT6csVQLWQJsgsrkUOxiw0JUwB08e9ifx+rQU4dbhNQiJ2fZ5M87HQ+Macario Vn0sxrKZfhMRrQ+oCdbJYWMhsXA86e7id4cAME5a3EXnHLbeB5Yxba+Y9tgMFQ/sDz+8SZC+E/yF3UHj mUcGJ+r4jYRB4BP2WOjp/4OXzqgZ4aXpm+2CfdFGvf P/9CsPN5+/FB/XR2kBeA9myzJkgFU/H02OOvfTaT+76kGhW9OwhmJl585NVqivnb37n3nfsEYh/M6Nv5 fSLWvt+K4g6nKFX7X/CFuXdf+P7AF/nBMiLOOo4+k6dI2nVFnBLrBcnWk25Wh5qQA+PliUfBxvcHvvH9 lJ9lezCEQ/smhEZyX9NktdyFS5P6Vi+byTUb5HmdWs iLCMfEvYngu/FYLKBIYIHSuJKobXXbLlmWGmDCKPHTI7VoQ9xyoeQbnekdAI277jUwNAaMA+KwqwyJ0e GKhrsLdiFlsPJEFXSIJefgiXGFDPzE8KsOfWn3zakgbM2AvomzDVAEpLV4eWxq06P1CE3/kS/Wvt/Tki fuQKRRgDbFd+gf4t4QMIx0j8K49c3/rKYgyC3accBw xBCcdTC/8Na+128DIPnaz6f+n1+Ez3Ze88+H3/il+E3XC0DlwjNuj3KxbzeyiybWG5cGjoo01kjiKZ7V h3F2vUy0mM/Q49A/UT5x/mJ4WfO93/iur07dCeujT5QXD55wq3rJZzatl6nvRpG/JS5cB5W5wa5kK+UT 5QvlC+Wb5rL7o42Hwyyh8aZ280veDh/30z0cxY61HY yj3FCO+9hxgihz0iuwTQKId12g2TDwh++ktYZsq35cBkO86H086s0pi6cgn2kHCxeqyzbjVxV1ATED+z vsXefwd/4Ed85M4y9s47Z0I6Wf3VTt2Z8PlQibhhamo1i+wV5D/aV8O3I1asc33h3Cjxhyv70L+2v+4s T8xY/B4wzXqfjiN/Fs6L+2n37H/VKPl8ApD/auOD72 bo3jT/vE0kRhYkX5lqM3Q+d/7N0tyj/66ejhZ6o0wv//7UwMA1oeUDu6P/Iu5ZyMz9+kgze0l4u0DZpC pn92ZkVNsfAkjnFfoh0I/eO1+7Lz97mnJPwg3Q/fpj8/z3N/9tBGP8aYs7+PgF241JaYPt1bgR5dMFh0 wdhX2yKjTA12PzyakQgs2ajPazc5FV2iqZ2R3zzLai xatC2S14d+Ec+4vYt7RR0e3n1HcwJoqtZpxgSuO9zhAT+31Lv1c1SBY+zdeP7u+he9Rx3V7U/+u9/z6K whT/1nCfm3/E5CIkT64jeyc5+biIZ0O88Z3vSEfyX5SKMaJX6C7A4ib//eUL4/ts40ZaSbnD//jYVc7f SdDI5MBpkU/b6b86cQiuYWm/N2ex9u6piimPyE6V+9 kqzVy9pej7Fg6EnsD54/G31vL4mdHQrrW/lvYbPIf6Fg6mLCL7xOj+y9K8M/0uxwmtv2vmNkGtiqsHu/ bEIdE6Z/bywR/5Z/7G2p/4Hp6AO44EMf2nMY76lYZ/txgavMa8NNr3/VrtYuRC089Vbo8+Gzown72jBr XDR/+NWM+5S22OkjJ/cgcdSA8Fkouf/+lzg+8XyP7X svgl/l+C3wtkRRCJjf2bJKefc2Wc0WNv7/Gd05RJLq5DViA3985hnIX+UnnvNYn/6nQ2r4D/3Br/J4QP +A/mNvLj8/9uqxK/qOzndGr0Tc6y8Z+cL5G9e/n3+DT05pN3pth3pi++oMfvWWe3/P6U9/7XlDHQDOp2 YkyI7Icgq5Ui42e4Ux8z8Ge2jWO51ZM0Ww/azk2Au8 Cy4BhpLs+XNxjUG19OwjZeh6cv/vegzxHPwq+qCjI7zbDI2R4f4GED06i1TlcrHE9u/2Zp86/CqPD7/6 HqNcXrsuT8/hV/ecY++RqkCYb6ET3Yg/0ZcPv/faj5yWrttWpp32wkBTvq7cpF5DvV/K9n862w0+NXMZ 97H3Hr/gm00udLy8mxA5o/jV7FF+8E3xykQ4Vnqzbr h4+FXkDM+C7e/xQPlA+xW4qhZXh4n+1yofQ0a/z45qzMh7Qm7fe7/r75XppjLA4x3WV2+EDR6Qja28Jl TVrld9JWez0WKvulI+SHjzjFM5Jfbp8Nv54+NKxE5Ld5c6y6V/D7/KWAp+3KFH1eqkye95r4+4F/zqHr 9xIPhVz+M3rga/sjx+PGS/78ADz3KtV9bC4eqiKsiW Loi2L+/V4Ffhz+DZUv9oQny8Qe+0d/lkh1TsfO+hZ3/5T2/zgmKMk5oAnn/M85CvTw5Fc7N28fqThwYW A1X7sV5U/KN4Vv0HG9/l1t/nogPk3h2xc93juC/oefy5y+PPXRrKH5/t8q7lC1vifkBU7ia6KGh/7/td YK+89/0ujz/3yF/lMexF/vsY819506rmlRXzx3282R 852kuhlA0G0lgkMDLt/eBt1AXOhuIb973qD1/VFfc3+VFpQ283axu/mkXEr3H7+DW7kxM70Jt9z/23B7 +6xyh/3cl3v8hk08d/wa/iODh4bASL+v28Xfjra4/QP6F/Qf+Gnp88j0836L/6eO+DfeD+jvc+2Md7H+ zIX/WB+4s2i9BQt3M/1ors9OW2Anfh0V5kYo/iecDe sXD+kd61XwyM3Brb940+uRvur+H+Ss4e7lwd+atuA/wkyjf77L1J/fssN89Z7b1nzOP6DniSeLZ2JQp2 26wg4xW2oz9yN86gsj269oA++8jypQe3B/7qHqMc/hwjbi607z5keVut+/5T85m910kqDxp7+u9EPE/c 89g9kgqzKvgtaOpiqIdk/s8q4wkXfx2cK+XzoR8Y7S xh70T/nQvlL7/DF9rnenzX1I/Y6rTrkl1+5BakninIiHI6nA64FDpA19xW2qSgB519/GSP/FWeYzjfcf 5Tu0Xst/jRo3h58zIiDzV8qVI0Jh758X2+VpjLe3xeD78HsIjfZv0pdZL+lp/8ZLS1O/CB1hCF7ZnzT1 lsKDeU++Mn++XbO/nM1m1d9/fLt/eN/ypyrtHue45g uK3D0O6K3woL/BkJY42pYD+trRS7TP64/z38jgaO/PcKTxYR2posAQ2huI9fvBgr/Nd/m8l6Apaw7seI WtrAcIqTY2u4xrgTM4aul8Ugun4Lc+A8jdk35yW59NS93SE/TxQ675A2Zk7tFIdQJ8bN9CjaikA2Ov04 5zjTC66hnu6lgzYja3q1mybEk/jXt14Qj+3mJ8/i4/ NVxL+a7po6YBSgML02xB+icdoX8qvNw10DqS+K1Sd0MRFa27pl2HC+t541x+5hy+FX/eDoj04FH/wq19 YdfpXrEw+/ptTlm78ILuRpYp78rjV7A1cq0XabgPvQ0xbceau1T4dfHAN8J+rfczePP+Xhtw+/svi+6C df6vs21Vwxev7D44ihlK13x/Ku5/CrXOt4+FSv0eck n8ghycnE0WgHY+/PX04o2fSR3hZGXEdAoPywBTnUI36h2pFitlIvI/4uL1NzeL6/ZP4qj8/9imt4+bqB /RAXcpRPXH8wV7UgjpInwg5vzPjop9G+8pMj+BFoU9vK8D4cg36uwe/sMhaGpvnSL5n8Q/h3um5t3mvr zadzltHmJfKBh4xAEY44a8LTz6gV5Iz73Ns4lZ6oYX Pn4/8Qwru4s+HdopERg3curj5Rhy4+LUbFY20a20+OK1Wejtxdf2+O2VE+bJ7WNnH6djntb87Xc8U/TM SvcLsUXapjn5qnhxbeOQ8C6gSj3ziSg2VLigyKpfP9z/fqfIG7CafByrLmvgjYz+m/A7izRj8rd+0dO8 ojf/WiEZd4oAJP+Pt58ttp+PCZfOtlMD5hDGQ+48bh V99j+55z+UHE7y2C2oQelb6X+QV4okmYt+l0aVi3g0q5mvT30il513ne+AD8vxf14vJJj/pF7WlZso/v 8UL5es+Rw6++x9/de7t1XE/1nJW+uEf7E64zX8sJ+b5jlJ/x+zRNc0g5M/lDqq85YeVh9U687Blvi6Lg s7w3/DkU39sen+Jl2M9C04nqzLd7Sycnon0QNwf1nd 0P9Nbjv4q6ABQXdb22Xyv4Ta008weQYty0Q2CRT9fAyiwQn3/nmBjOf+9HJo8/W/CrWNsmE+GrG8hgtT dD/3v/GD563rD8n2VLh26g1NJp6EO3Ri1f+knp3dzqF28x3RlUlaU2TRjB6Y7rSZvnqpC3eQA6rn5W15 nQE+2A3hq9ampef7k0aWR/Rg7oPtkzz1/sArj19X/Q j/vbH3+2/dcdQw7nhbEht4R/oX9B/4Kejet/+Vof685D8F2RVS0u+Q9FpbdixaY8C1Ao6pGinCdnTC49 H/H0WV76ezoaL9RDEYiB+VF5rs14fpHYn49bLXNnEFyQu6796dknAq7qXbGH+0mfL90lvwG+wzR61CbO 31+Z4f7i+kobfPJ7I3x5/sXh3uedDph7zbxMuo8rs6 Z6jQsHk1PD1taco0JfP/9F/wjZuqCwzyn5D9QUC/JXNt/1rr9Oq2S55mDW/RZBeW8B5q7VQ7C/58vX2X o1GyaLngtqxHvi+zg5ii14bYmyF/qedlf6aC+RffUdknrvK6Nloct9M2e/C/YcaO3P0/UMyMg0w+H+Lk W67W4P1xK+z4JE7GmuljC8pO1b59S4c9/1hp099/3y [file] 5QsX879b/0znZ/9l677ce6Fmf//1t799+/Wvvv/47u P7t2/ef/HV5+++fvv1t1/48i0C31/6+Nufvf/midhsgj780pmyn16//Nri047m2w/37QZ403a1+ifW3G J4KzAgf5d1rTg0cK615ye//v7tw5e//fjlN//Fz+4B+L4DO141+9U3r/y2bHmbi0g3q+/fPv/r4jc0A6 569/oM3g52yz9no/wdcw0ic2+9/+b9tx//6u1ve189 +2R2k6ph3493Vh3j7ggM5458U70nWoOceroazmiJQ9/WvP/39883j0Hjua6IM77/+/b5d9/48r5C96+8 /cNXH7+8//D23S/frnbcLOMzmX/oY9elAj20ej963d66a/7u269++XLutx/fPv/y3bcvo/4i2bocu895 7Rf/xT/vXvj+5+d/+vFff//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 supervisor/7wL2//9B9vv/n9H/ 7wuz//+Yff/nDz3v261X+//+EPb//813Q641+//cdGU1M4xu/6ly0eJk+uoa6x5gy/8DYWSgR5lOo//O PP/83KoLReJ2b4jb/4G+QwIoCw6B444q8LFV4QFsy/3unnZTzK4DlU1/td9pZjXM571qEoQ1jmDW/r89 iF4Zk53CtaFi87vu2//OsPL//isrow2q9C7+9/9e7r r96+//Peg177Ic929K/Hyb9Y/0vXHm/zr2sz+2nPv/vCvdgKivmBO41EF3nRygXYv4/527c//+4vP3xy 9td4+mrGsj4r/ZHPaGkPJqE/PfsGf/Xh7fc//uWHP/+f/4Rpgzykb45Ry/e+sTF+Floresita/f2H79/+5X+/ 7v33f/zht2ebloq+mqz5cPI1/cef//3Hf+aTnpcCfz Gkn/uKJyy66ejKDMk+wXv/GWD5cALmWspwJ+9pY7/83RfnoJg91v/94d//83vzPLVr/Oy/v/z4A2b3te er1/TtP/78j3/9k1/evp global product leadership/DLH/26fs648ztlO/h3f/m3H/78p92mQ8y//sef/gg0Xzm2yv/95/8+7vvwpz /79NTyZ1M1fJ//6Z8/M+WEry1aC1lLK//4wz//24+/ /+ff/+8Xn7936XvhYsf4AJtbqq/5/SoDkr//97+8Wty/fPb5l++///i1n1jsgKny6448+hbVp/7qd//z hzd5+9O/pr5rhCC+GqCfV/37+6Xdmt2z/Ut4fYu+/+Lj6/W/s3e2LvByM//x4N3T8We+z3eff/7qVV+/ bXcGhXubyuOI/w+i7VMqYvIjITK3osWgqVigtgTaKo gQJTwaLTCgVpx9EA8QpQMrDRXqC5B8ATVvrk9vXDBfMXSatSNeWgHnECKXFQ7FmDSvZQ7LMUr8FJZjNM XnJnPaCSJsxcH6BQRzGYDpTNVxV7ByomTseUBxXWFiEc6+JF4so8HrJjYtHAUoEsh8KJ6MyDPdKP2BbI MgjK3ejjUjH843ohWwVAZbGofdi3XcRIatUYOFAQ3D IQY6PYO3DOFfFw1+TZ0xl5DbCnJmETKiSvd2YJ8ToQQsx4ZlOL4PI2XgMZMhJHADVZU1f3RnYBJrltcf mmihA9VqHTX3fI3fUML8TLHaDVtaLBJmAQWvLAA8STViAMavAHDmQEEcDMYcTUAlLBh6oMOiXR0QQ5Uf BGYyHXXCKCAyvjZwVm3wPZhCD7WKAJMQPIbVAWOwIV moBARtLSZeU8YvsiRlyIKdCLGLORdeUhajLGQgfV0tuFbcE5QjETK3j7WhMG9AA3XnZPKoXTUINLJ8q9 YcBYFkzltoirnhHeKoNZGgOINrKJHcLS2Qdd1pgJBwqkDuRJBFLLngPzffFR0rmUcgesdlV5OooQFiXH A+LrLyRF9hki3+VfCmTTUoPby1ZLXlQCxiTUWnVFEe QVAfH8jlBKEiDmJbUSZeNzYaTU5Nn3IvkSJnAw3rcbPnDkpOqIXpTissJZMmAHZlYMUaDhVQFQZiDGMx CZQfQTL8BKXpWDNiQUofOYUfEPP2OPA8LWMzTQSaGH3kPzRrYGExViNmDKGwIHVjMDTfwwKSXMReIYH6 CGO2PXWeTXSqTKLsOVhnLUHaFYJrXUZkACM6PZN4KA YoEiXzBPZxSUGgESCgVWDhZPNcfbXVBJBvHOQaJSS9GSFgIDStTCKoMHlhQHBoYGRtPVinDPYqEPTiTL 4gCjAwMDAwMDAyOTggMDAwMDAgbiAKMDAwMDAwMDQwOSAwMDAwMCBuIAowMDAwMDAwNTIzIDAwMDAwIG 4pNcLjJXNiPGB6NDKiLCGhKEAghbTTZOPzHHXwVRg8 QPXmJOSpAJVyGKljQCYpTSBjVZU4PGEkOMKwMM8kXwRhXFLaPFN3CzBqTXOcFIXxvjYINXJiJAOgTNP7 BwUwFGOmAIReWHhfJLNbBDXkXEtaMRQnLNCyWE3nKoAtUCWyELRdVTvlKPXpGVUyhaJVVWBxVJHgRPTd SqDpVMPnRSEvXMabAONrAKS7WMf0DOKtRXJaBK8cZr NtQMBuBPD4KIktRXKcSMGpqsRMGAYoBIZxHCslPVWfGVJeXSXyGWvmFWTsVJXbYDV6OVNeSXXxLQ3gIw MvFLVqBXYtJXCbJyX8JcZtQbAXkXWlbYxgdor3VTnqU6d3LWHoVOxoXD7aduVtFANmPtasNd3lnOO8NI ObZcyUUn4Lk0NxqrP3bdPkKkF9TJc8EtBlUM3T ID Date Data Source [id number] 11/19/2020 08:44:41 AM EDT [facility] Name Value Range Interpretation Code Description Data Randa rce(s) Supporting Document(s) [facility] RSLHUt2eQjEDWeUnp8AwToSbULGiQK9lhwt1I6J8iIXdW6ZmjAHjc0ddX3NsF4FvMSOlZKVVUY6ApOPp jb2 [file] /merchandising consultant/Ynd2A/MI1hzaz8dLcDDbzLnvzZ8VmEPHE0Y18lhznMxEMCi9k6Z00JH/Ymd+vP93ux369smuC6E Fyu0RVJPrTZFZffL50bs2oBEsTBkQMXmhlglilxZMHQXSXPUkMMCHAULMOAQ9oqovo+CSPSkrqLOGA2y [file] 2m5CH6394+c7n40sVZKlL/40LCiO4O7e37Ma/uvKZD +d+Ze/oYVXzZUDeqeJ+rle0Zrj//cMn5n2kz/++v0nZ3+9TN+jjV85fs/9yLt2JR+j/PTsG/zNh7c//v jX7//yv//c9yU5081fbj4ylUROYu69zf01x1wf//6/Xvf+xz//+LTLr1J3Hzn9ptGB/vnjL/61775Rf5 0ZFfirt/5h4if28Vi+ujZpjTI4b0m/IOH/rYpm+Df/ 2Z9w7Zg///Dzj29/+H++/8+/XZMUC2fm3//t3Tc/X6/gf/27pm//5y//+vc/+fV+DP/0/Q9/+NMnD3h+ gn/71//5/V9+8t/taSQ41rkc/n2zOPz5m//xt//72O/Dn//5a0kpUnyaQ1qu/erP//sN5PAkl34dUzj5 x+//7X/++Md/++MffvzsTVYphZ/5cqKK5O//86+v/v bvn33+6/ryzBv3fxlko/ur0m5oZd24w5++p+zvPuMov9+a//8/ub+O3V8hOl7BE/6v79/k7c//8fbJa9 Sz0VgM646qYs0w772/aZw31tnmRn0oiCz5pYc4eNoom1Bg6G1/7z7//TJrz42h4llTu7oLP0A/P7JKkK ILVH5xc0IyDKGyHgFmPB9dsdfbEDYyAW6blpx9C9Vo dXfiLJjLJEXqZa0bwWKdEM2QZHB7KKxeXIBrSFXgR5KigX3kO23onXXsGoYfUOTVRQ9BgcK9NAE7TDG2 NMJcFgFfJDIqLP30HCKgUJVYTb2xotYgTeeGHlPmAX7dqar1L2S4dOAgB359eJiygzLwZU5Aw8KshHNw GQ5IzSFalRJwRPBkTQXjS9kng3TvVTsuTEYQXf2jtq LmWsaPEkDuRU5owzn4K3Y5sOwnnvPeVXGJVOrtDyiaIO4beMeetpnmK4IgeZEgLISgL9ZmYVQga07TWE BeKZjIJqVlNtKwQFD9KVz8FOtgQaMyIWXlMESaLJBySL5KyKNjRVSsCRYADQytFhvrYSOarQ1oxWJIe5 DtD39EQDWoSPtPIPgYTVV3JITuKvRiHW4AkGYpBOW4 MDoQDYCZCIbSIGynVmKyw2I2LYJyR8SxRSIjvoVdVQKOIJfkLqgrVL2cyKmfrtpkE5RqpTHmRMFSZYMo SHQcGQHuLGScS7Jvm6V4W0WpKMuAPQXRBHyBQZljHiI0h77lryLULGDnFGZdXA7+AA4ga7QbXf6NGWRh XB3dxqz3SY2GdVFwXO8VALqaxyPhN2nycbUqYcYbXP HNFH9dG6BtkZ95HXM+QzZkDT3pvhk0kfLrMqYtCNCbCOYoKYIpSXjpBYDgIKIyZRCaMDV7ZFY4LRLkNw LjSBMpPvQxYOIoGKQxJWPxmiPYOQTvZAT9ONYgYHJaLYRmYSXeGQdxTCVtGAX8LJj4CTVtQFBgQT9cYv DgXSBhGHAoNDNvXmW7CcIvWlVJDYIrJEHoCKLoJxQc JWUyCTXuXQyvUKMvHEOwBPs1YNHqSTZfNP6jAzVkWCQdMEAkOEFsKSTbQZAzamJBVBLrEDJbOZB2XBFd FBSfZWHuKIiqSARoXOJtAUI7EVSlJYQqSI0gGeMyNGZzIDJ3RkVfCOWoFNQcjpTJOHIeSLGiOWC7NZUn KBAvLUXuSHdiJCLfSHOyKsA4RGRuHBAdKH8bHcLgYW YiAXY1EIUyDPQgOMFkvcHTKNWdJBNjFYr7QtVfXELoSGTeJPehPYCoWXYeRNcmWKMwLMEsQS1lJdJaYJ XrFTKcLHXuSFBjIDPdhwPOIYGrWGNyRUY4SkOeKYCpJDGlXSnzTNJbZXTfADO8DTIzYPUwIH2fMnGvGV LxXiF9YnUjWKKbBEUwioAOVPDwFHTrYEIdBTJsJWEz ZVVvWLwnAOZcNYNkQdZ8TMZgAGTyHQ5zDcYmIIMnJIF5QUDxISJkBQVcruSSMGFePYGwQUZtDQB8GQRz AWIvUYp8goTdsYEiOyu2On9WsSnvFYU2Yi6EikTeQTTaSYKFCc5Di721JORfBOXORse+PgpzdGFydHhy TBGSGiX3MEsXAVGOC3E= ID Date Data Source [id number] 11/19/2020 10:43:52 AM EDT [facility] Service Cmnt XXX-Imp : NoneMicroorganism XXX Cult : NEGATIVE for fecal occult blood by immunochromatography. This test is not designed to detect bleeding from the upper GI tract. To detect bleeding from the upper tract, order Fecal Occult Blood, Upper GI (Hemoccult-SENSA). Name Value Range Interpretation Code Description Data Randa rce(s) Supporting Document(s) ID Date Data Source [id number] 11/19/2020 10:08:52 AM [facility] Service Cmnt XXX-Imp : NoneOB Pnl Stl : Hemoccult slide negative. This test detects blood from the upper and lower GI tract, however it lacks specificity due to drug and dietary interferences. For the highly specific detection of blood (hemoglobin) from the lower tract without the need for prior patient preparation, order Fecal Occult Blood, Lower GI (Hemoccult ICT). Name Value Range Interpretation Code Description Data Randa rce(s) Supporting Document(s) ID Date Data Source [id number] 11/19/2020 07:27:28 AM [facility] US ABDOMEN LIMITED [id number] RESULTInte rpreted by:ALEXANDR MilliganROCEDURE INFORMATION: Exam: US Abdomen, Limited; Right Upper Quadrant Exam date and time: 11/19/2020 6:41 AM Age: 30 years old Clinical indication: Illness, unspecified; Screening exam; Other: Upper abdominal pain, eval for cholelithiasis TECHNIQUE: Imaging protocol: US abdomen. Real time ultrasound with image documentation. Limited exam focused on the right upper quadrant. COMPARISON: No relevant prior studies available. FINDINGS: Liver: The liver is homogeneous in echotexture. No demonstrated mass or intrahepatic biliary ductal dilatation. Gallbladder: The gallbladder is without demonstrated stones, sludge or wall thickening, and there is no pericholecystic fluid. Sonographic Lacey sign is reportedly negative. Common bile duct: The common bile duct is normal in size for a patient of this age at 5.6 mm. Pancreas: The pancreas is largely obscured by overlying bowel gas. Visualized portions, not fully including the head, body or tail, are without demonstrated abnormality. Right kidney: The right kidney measures 11.9 x 5.1 x 5.8 cm. Its cortex measures 1.5 cm in thickness. Normal appearing echotexture. There is no hydronephrosis or demonstrated renal stone, cyst or mass. Portal venous: Portal venous flow is normal in direction. Inferior vena cava: The IVC is present. IMPRESSION: No cholelithiasis, biliary ductal dilatat ion or other demonstrated abnormality. Pancreas largely obscured by bowel gas. THIS DOCUMENT HAS BEEN ELECTRONICALLY SIGNED BY RADHA BARAHONA MDThis document has been electronically signed by Radha Barahona MD on 11/19/2020 7:27 AM Name Value Range Interpretation Code Description Data Randa rce(s) Supporting Document(s) ID Date Data Source [id number] 11/19/2020 07:12:59 AM [facility] Name Value Range Interpretation Code Description Data Randa rce(s) Supporting Document(s) Choriogonadotropin.beta subunit free [Units/volume] in Serum or Plasm a <5 [facility] (NOTE)Levels between 5 and 25 [IU]/L may indicate earlypregnancy and should be repeated after 48 hours. ID Date Data Source [id number] 11/19/2020 09:24:55 AM [facility] Service Cmnt XXX-Imp : NoneRespiratory P CR Panel : PCR ResultsMicroorganism XXX Cult : See Labs Tab for 2019 nCoV RT-PCR resultsHAdV DNA QI COLBY+non-probe : Not DetectedHCoV [id number] Nph QI COLBY+non-probe : Not DetectedHCoV [id number] Nph QI COLBY+non-probe : Not CszplepsREeYLV69 RNA Nph QI COLBY+non-probe : Not LegdefucLVyCNJ74 RNA Upper resp QI COLBY+probe : Not DetectedhMPV RNA Nph QINAA+non-probe : Not DetectedRV+EV RNA Nph QI COLBY+non-probe : Not DetectedFLUAV RNA Nph QI COLBY+ non-probe : Not DetectedFLUBV RNA Nph QI COLBY+non-probe : Not DetectedHPIV1 RNA NphQINAA+non-probe : Not DetectedHPIV2 RNA Nph QINAA+non-probe : Not DetectedHPVI3 RNA Nph COLBY+non-probe : Not DetectedHPIV4 RNA Nph Q COLBY+non-probe : Not DetectedRSV RNA Nph Q COLBY+non-probe : Not DetectedB pert.PT PrmtNph Q COLBY+non-probe : Not DetectedC pneum DNA Nph Q COLBY+non-probe : Not DetectedM pneum DNA Nph Q COLBY+non-probe : Not DetectedB [id number] DNA Nph COLBY+non-probe : Not Detected Name Value Range Interpretation Code Description Data Randa rce(s) Supporting Document(s) ID Date Data Source [id number] 11/19/2020 07:01:33 AM [facility] Name Value Range Interpretation Code Description Data Randa rce(s) Supporting Document(s) Leukocytes [#/volume] in Blood by Automated count 8.2 10*3/uL 4-10 [facility] Erythrocytes [#/volume] in Blood by Automated count 4.24 10*6/uL 4.1- 5.3 [facility] Hemoglobin [Mass/volume] in Blood 12.2 g/dL 11.5-15.5 [facility] Hematocrit [Volume Fraction] of Blood by Automated count 36.4 % 3 6-45 [facility] Erythrocyte mean corpuscular volume [Entitic volume] by Auto mated count 85.9 fL 80-96 [facility] Erythrocyte mean corpuscular hemoglobin [Entitic mass] by Automated count 28.7 pg 27-33 [facility] Erythrocyte mean corpuscular hemoglobin concentration [Mass/volume] by Automated count 33.4 g/dL 32.0-36.0 [facility] distribution width [Ratio] by Automated count 13.5 % 11.5-14.5 [facility] Platelets [#/volume] in Blood by Automated count 276 10*3/uL 150-400 [facility] Differential cell count method - Blood [facility] Neutrophils/100 leukocytes in Blood by Automated count 72 % [facility] Lymphocytes/100 leukocytes in Blood by Automated count 18 % [facility] Monocytes/100 leukocytes in Blood by Automated count 7 % [facility] Eosinophils/100 leukocytes in Blood by Automated count 2 % [facility] Basophils/100 leukocytes in Blood by Automated count 1 % [facility] Neutrophils [#/volume] in Blood by Automated count 5.95 10*3/uL 1.8-7 .0 [facility] Lymphocytes [#/volume] in Blood by Automated count 1.45 10*3/uL 1.2-4 .0 [facility] Monocytes [#/volume] in Blood by Automated count 0.60 10*3/uL 0-0.8 [facility] Eosinophils [#/volume] in Blood by Automated count 0.13 10*3/uL 0-0.5 [facility] Basophils [#/volume] in Blood by Automated count 0.07 10*3/uL 0-0.2 [facility] Nucleated erythrocytes/100 leukocytes [Ratio] in Blood by Automated count 0 /100{WBCs} 0-0 [facility] ID Date Data Source [id number] 11/19/2020 07:19:33 AM EDT [facility] Name Value Range Interpretation Code Description Data Randa rce(s) Supporting Document(s) Cardiactroponin T pnl SerPlHS <14 [facility] ID Date Data Source [id number] 11/19/2020 07:21:14 AM [facility] Name Value Range Interpretation Code Description Data Randa rce(s) Supporting Document(s) Albumin [Mass/volume] in Serum or Plasma by Bromocresol green (BCG) dye binding method 4.3 g/dL 3.5-5.2 [facility] Bilirubin.total [Mass/volume] in Serum or Plasma 0.8 mg/dL <1.2 [facility] Bilirubin.direct [Mass/volume] in Serum or Plasma <0.3 [facility] Alkaline phosphatase [Enzymatic activity/volume] in Serum or Plasma 71 U/L 35-104 [facility] Aspartate aminotransferase [Enzymatic activity/volume] in Serum or Plasma 14 U/L <32 [facility] Alanine aminotransferase [Enzymatic activity/volume] in Seru m or Plasma 13 U/L <33 [facility] Protein [Mass/volume] in Serum or Plasma 7.2 g/dL 6.4-8.3 [facility] ID Date Data Source [id number] 11/19/2020 07:21:14 AM [facility] Name Value Range Interpretation Code Description Data Randa rce(s) Supporting Document(s) Lipase [Enzymatic activity/volume] in Serum or Plasma 21 U/L 13-6 0 [facility] ID Date Data Source [id number] 11/19/2020 07:21:14 AM [facility] Value Range Interpretation Code Description Data Randa rce(s) Supporting Document(s) Bicarbonate [Moles/volume] in Serum 23 mmol/L 22-29 [facility] Chloride [Moles/volume] in Serum or Plasma 99 mmol/L 98-107 [facility] Creatinine [Mass/volume] in Serum or Plasma 0.81 mg/dL 0.50-0.90 [facility] Glucose [Mass/volume] in Serum or Plasma 85 mg/dL 70-140 [facility] Potassium [Moles/volume] in Serum or Plasma 4.0 mmol/L 3.4-5.1 [facility] Sodium [Moles/volume] in Serum or Plasma 135 mmol/L 136-145 L [facility] Urea nitrogen [Mass/volume] in Serum or Plasma 8 mg/dL 6-20 [facility] Anion gap 3 in Serum or Plasma 13 mmol/L 8-15 [facility] Osmolality of Serum or Plasma by calculation 278 mosm/kg 275-300 [facility] Creatinine/Urea nitrogen [Mass Ratio] in Serum or Plasma 9 [facility] Calcium [Mass/volume] in Serum or Plasma 9.2 mg/dL 8.6-10.0 [facility] Glomerular filtration rate/1.73 sq M pre dicted among non-blacks [Volume Rate/Area] in Serum or Plasma by Creatinine-based formula (MDRD) >6 0 [facility] Glomerular filtration rate/1.73 sq M pre dicted among blacks [Volume Rate/Area] in Serum or Plasma by Creatinine-based formula (MDRD) >60 [facility] ID Date Data Source [id number] 11/22/2020 02:08:03 PM [facility] Name Value Range Interpretation Code Description Data Randa rce(s) Supporting Document(s) Acetylcholine receptor Ab [Moles/volume] in Serum 0.05 nmol/L 0.00-0. 24 [facility] (NOTE) Nega tive: 0.00 - 0.24 Borderline: 0.25 - 0.40 Positive: >0.40Performed At: [facility] [id number] Ibarra MD Ph:[phone] ID Date Data Source [id number] 11/23/2020 02:08:35 PM [facility] Value Range Interpretation Code Description Data Randa rce(s) Supporting Document(s) Acetylcholine receptor blocking Ab [Units/volume] in Serum 22 % 0-25 [facility] (NOTE)Results of this test are labeled f or research purposes only by theassay's master deputy sheriff court security. The performance characteristics of this assayhave not been established by the master deputy sheriff court security. The result shouldnot be used for treatment or for diagnostic purposes withoutconfirmation of the diagnosis by another medically establisheddiagnostic product or procedure. The performance characteristics weredetermined by [employer] M[employer]. Negative: 0 - 25 Borderline: 26 - 30 Positive: >30Performed At: [facility] [id number] [place], [place] [id number] Ibarra MD Ph:[phone] ID Date Data Source [id number] 11/19/2020 06:24:00 AM EDT [facility] Name Value Range Interpretation Code Description Data Randa rce(s) Supporting Document(s) SARS-CoV-2 RNA 2019 nCoV Real-Time RT-PCR: NOT DETECTED [facility] This lab was ordered by [facility] and reported by [facility]. ID Date Data Source [id number] 11/19/2020 09:25:32 AM EDT [facility] Name Value Range Interpretation Code Description Data Randa rce(s) Supporting Document(s) Specimen source [Identifier] of Unspecified specimen [facility] SARS-CoV-2 RNA 2019 nCoV Real-Time RT-PCR: NOT DETECTED [facility] Assay Performed [facility] Patients first test for [facility] Patient employed in healthcare setting [facility] Patient has symptoms related to [facility] When did you start to experience these symptoms [Date and time] [Phen X] [facility] Patient was hospitalized because of this condition [facility] patient was admitted to ICU for [facility] Patient resides in a congregate care setting [facility] status [facility] ID Date Data Source [id number] 11/18/2020 07:06:50 PM EDT [facility] Name Value Range Interpretation Code Description Data Randa rce(s) Supporting Document(s) Color of Urine [facility] Clarity of Urine [facility] Specific gravity of Urine by Refractometry automated 1.025 1.003 -1.030 [facility] pH of Urine by Automated test strip 5.0 5.0-8.0 [facility] Protein [Mass/volume] in Urine by Automated test strip 30 mg/dL Neg [facility] Glucose [Mass/volume] in Urine by Automated test strip Neg [facility] Ketones [Mass/volume] in Urine by Automated test strip 20 mg/dL Neg [facility] Bilirubin.total [Presence] in Urine by Automated test strip Negative [facility] Hemoglobin [Presence] in Urine by Automated test strip Neg [facility] Leukocyte esterase [Presence] in Urine by Automated test strip Negative [facility] Nitrite [Presence] in Urine by Automated test strip Negati ve [facility] Leukocytes [#/area] in Urine sediment by Automated count 0 /HPF 0 -5 [facility] Erythrocytes [#/area] in Urine sediment by Automated count 0 /HPF 0-3 [facility] Epithelial cells.squamous [#/area] in Urine sediment by Auto mated count 1 /HPF None [facility] Mucus [#/area] in Urine sediment by Microscopy low power field None [facility] ID Date Data Source [id number] 11/18/2020 06:29:33 PM EDT [facility] Name Value Range Interpretation Code Description Data Randa rce(s) Supporting Document(s) ED Provider Note [facility] [id number]/XILuiZICng9TkUTwdKAi8PElgKEAqH6MxOMH9tP9uRDI4PIqDJgIjIjUxTVHe lbm [file] MDAyMzIyOCAwMDAwMCBuDQowMDAwMDIzNDEyIDAwMD FlGE8UQgWvMOWyQvV8MDVsZDVtHVVpuj5UtWCwgVutqr0GRTsVHd6QkTnaBKU8OSfyFl4xpFZhFFVvHM FFUd7MqtCeQIQrTQBPFRnaWKNoTMq5Gjk6EXZ2S3FmPLB1GvCdGjR0MDO8NKo8TAI5NkKjEiJ6FLHtIq H1RwjvPaS4OHabNJF7VVslSwG2PndoPCtjSpY+IF0g DQo+Bt8Ni8AczxE2jtGyVZnyArkyJL8TKIDSX9VJXg== ID Date Data Source [id number] 11/18/2020 12:13:00 PM EDT [facility] DATE OF EXAM: 11/18/2020XAM:Chest 1V Po rtable CLINICAL INDICATION: SOB TECHNIQUE: Single chest x-ray. COMPARISON: Chest x-ray dated 10/16/2020. FINDINGS: The lungs are clear and well expanded.No consolidation or pleural effusion is identified.Normal cardiovascular silhouette.Unremarkable osseous structures. IMPRESSION: 1. No acute cardiopulmonary disease. X2End of diagnostic report for accession: [id number] Interpreted: Leroy Cabrera MDTranscribed: 11/18/2020 12:12 PMSigned: 11/18/2020 12:13 PM Leroy Cabrera MD --------- [facility] # [id number] BILL # [id number] Name Value Range Interpretation Code Description Data Randa rce(s) Supporting Document(s) ID Date Data Source [id number] 11/18/2020 01:39:19 PM EDT [facility] Name Value Range Interpretation Code Description Data Randa rce(s) Supporting Document(s) ESR 46 mm/h (0-20) H [facility] ID Date Data Source [id number] 11/18/2020 12:37:40 PM EDT [facility] Name Value Range Interpretation Code Description Data Randa rce(s) Supporting Document(s) MAGNESIUM 1.9 mg/dL (1.7-2.4) [facility] ID Date Data Source [id number] 11/18/2020 12:37:40 PM EDT [facility] Name Value Range Interpretation Code Description Data Randa rce(s) Supporting Document(s) TSH,ULTRASENSITIVE @ 0.835 mIU/L (0.360-4.170) [facility] PERFORMED AT [address] [place] [place] [place] [address] ID Date Data Source [id number] 11/18/2020 12:37:40 PM EDT [facility] Name Value Range Interpretation Code Description Data Randa rce(s) Supporting Document(s) C REACTIVE PROTEIN @ 1.5 mg/dL (0.0-0.5) H [facility] PERFORMED AT [address] [place] [address] ID Date Data Source [id number] 11/18/2020 12:37:40 PM EDT [facility] Name Value Range Interpretation Code Description Data Randa rce(s) Supporting Document(s) TOTAL PROTEIN 8.2 g/dL (6.4-8.2) [facility] ALBUMIN 3.4 g/dL (3.5-4.6) L [facility] GLOBULIN 4.8 g/dL (2.7-4.3) H [facility] ALB/GLOB RATIO 0.7 RATIO [facility] BILIRUBIN,TOTAL 1.0 mg/dL (0.0-1.0) [facility] PLEASE NOTE:Total bilirubin results may be falselyelevated in patients taking Eltrombopag. BILIRUBIN,CONJUGATED 0.2 mg/dL (0.0-0.3) [facility] BILIRUBIN,UNCONJ. 0.8 mg/dL (0.0-0.7) H [facility] ALKALINE PHOSPHATASE 76 U/L (45-117) [facility] AST (SGOT) 12 U/L (11-39) [facility] ALT (SGPT) 23 U/L (12-78) [facility] ID Date Data Source [id number] 11/18/2020 12:37:40 PM EDT [facility] Name Value Range Interpretation Code Description Data Randa rce(s) Supporting Document(s) CK 52 U/L (26-192) [facility] ID Date Data Source [id number] 11/18/2020 12:37:40 PM EDT [facility] Name Value Range Interpretation Code Description Data Randa rce(s) Supporting Document(s) SODIUM 137 mmol/L (136-145) [facility] POTASSIUM 4.2 mmol/L (3.6-5.2) [facility] CHLORIDE 108 mmol/L (100-108) [facility] CO2 28 mmol/L (22-31) [facility] ANION GAP 1 mmol/L (7-16) L [facility] UREA NITROGEN 7 mg/dL (7-24) [facility] CREATININE 0.84 mg/dL (0.60-1.00) [facility] BUN/CREAT RATIO 8.3 RATIO (10.0-20.0) L [facility] GLUCOSE 76 mg/dL (70-99) [facility] CALCIUM 8.7 mg/dL (8.4-10.2) [facility] GFR >60 ml/min/1.73m2 (>59) [facility] GFR ( AMER) >60 ml/min/1.73m2 (>59) [facility] GFR INTERPRETATION [facility] --NORMAL KIDNEY FUNCTION OR MILD DISEASE - GFR >OR= 60CHRONIC KIDNEY DISEASE - GFR 15 - 59RENAL FAILURE - GFR <15 Est. GFR calculation based on the MDRDstudy equation, which assumes a steadystate for creatinine. Est. GFR should notbe used for medication dosing. ID Date Data Source [id number] 11/18/2020 12:29:22 PM EDT [facility] Name Value Range Interpretation Code Description Data Randa rce(s) Supporting Document(s) HCG, QUAL. SERUM (NEG) [facility] ID Date Data Source [id number] 11/18/2020 12:13:04 PM EDT [facility] Name Value Range Interpretation Code Description Data Randa rce(s) Supporting Document(s) WBC 9.0 10*3/uL (4.1-11.0) [facility] RBC 4.41 10*6/uL (4.00-5.40) [facility] HGB 12.7 g/dL (12.0-16.0) [facility] HCT 38.2 % (36.0-47.0) [facility] MCV 86.7 fL (80.0-95.0) [facility] MCH 28.9 pg (27.0-32.0) [facility] MCHC 33.3 g/dL (32.0-36.0) [facility] RDW 13.6 % (10.5-14.5) [facility] PLT 296 10*3/uL (150-450) [facility] MPV 9.4 fL (7.1-10.7) [facility] NEUT % 75.4 % (35.0-75.0) H [facility] LYMPH % 15.0 % (16.0-52.0) L [facility] MONO % 7.6 % (0.0-8.0) [facility] EOS % 1.1 % (0.0-5.0) [facility] BASO % 0.9 % (0.0-4.0) [facility] NEUT # 6.8 10*3/uL (1.8-7.7) [facility] LYMPH # 1.4 10*3/uL (1.2-4.8) [facility] MONO # 0.7 10*3/uL (0.0-0.8) [facility] Eosinophils [#/volume] in Blood by Automated count 0.1 10*3/uL (0.0-0 .5) [facility] BASO # 0.1 10*3/uL (0.0-0.2) [facility] ID Date Data Source [id number] 11/11/2020 06:42:00 AM EDT [facility] Name Value Range Interpretation Code Description Data Randa rce(s) Supporting Document(s) SARS-CoV-2 (COVID 19) NEGATIVE - SARS-CoV-2 (COVID19) [facility] This lab was ordered by [facility] a nd reported by [facility]. ID Date Data Source [id number] 10/24/2020 12:49:00 PM EDT [facility] Name Value Range Interpretation Code Description Data Randa rce(s) Supporting Document(s) Venipuncture Laboratory test result [facility] ([facility]) musk ab cheri ra ssa ssb anca lyme parris Nuclear Ab [Titer] in Serum Laboratory test result [facility] ([facility]) HOMOGENEOUS PATTERN DETECTED - TITER 320 SPINDLE PATTERN DETECTED - TITER 320 ID Date Data Source [id number] 10/24/2020 12:49:00 PM EDT [facility]) Name Value Range Interpretation Code Description Data Randa rce(s) Supporting Document(s) Lyme Disease Screen with Reflex 0.66 0-0.90 [facility] ([facility]) <content>Normal Range: Less than 0.90</c ontent>
<content>Index Value Result Interpretation</content>
<content>< or = 0.90 Negative No B. burgdorferi antibodies detected</content>
<content>0.91-1.19 Equivocal Possible B. burgdorferi antibodies detected</content>
<content>> or = 1.2 Positive B. burgdorferiantibodies detected</content>
<content>This assay is intended for the presumptive detection of human IgG and IgM antibodies to Borrellia burgdorferi. A positive or equivocal result will be tested by Western Blot/Immunoblot and should not b </content>
<content>e interpreted as truly positive until verified by such testing. If Lyme disease is strongly suspected with a negative screen, a second specimen should be collected in 2 to 4 weeks.</content>
<content></content> ID Date Data Source [id number] 10/24/2020 12:49:00 PM EDT [facility] ([facility]) Name Value Range Interpretation Code Description Data Randa rce(s) Supporting Document(s) Angiotensin converting enzyme [Enzymatic activity/volu me] in Serum or Plasma 21 U/L 9-67 [facility]) musk ab cheri ra ssa ssb anca lyme parris Kjtuw-4-Ewflmnqjqpa interpretation in Amniotic fluid Laboratory keyshawn t result [facility] ([facility]) NEGATIVE This test did not detect abnorm al levels of anti-MuSK antibodies. Cell Fractions/Differential [Interpretation] in Body f luid Laboratory test result [facility] ([facility]) Comments: This result does not exclude a diagnosis of Myasthenia Gravis. Recommendations: Health care providers, please contact the [facility] Client Services Department at if you wish to speak with a clinical senior compensation consultant regarding this test result. Other testing [...] studies when performed on limb muscles (4). Sjogrens syndrome-A extractable nuclear Ab [Units/volu me] in Serum Laboratory test result [facility] musk ab cheri ra ssa ssb anca lyme parris Laboratory test finding (navigational concept) Laboratory test result [facility] ([facility]) 1. Tanner, K, et al. (2005) ELENA 293: 1 906-14. (PMID: [id number]) 2. MARIEL Reyes et al. (2000) Postgrad ed 107: 211-4, 220-2. (PMID: [id number]) 3. Chinyere-Sherin S, et al. (2014) J Auto immun 52: 90-100. (PMID: 02778833) 4. Dasha Guerrero et al. (2013) Autoimmun Rev 12: 931-5. (PMID: 58542739) This test was developed and its analytical performance characteristics have been determined by [facility]. It has not been cleared or approved by the U.S. Food and Drug Administration. This assay has been validated pursuant to the CLIA regulations and is used for clinical purposes. Laboratory oversight provided by Shaan Hunt M.D., Ph.D., CLIA license becerra, [facility] (CLIA# [id number]) Testing performed at: [facility] [address] [place], [place] [id number] Reference lab test method Laboratory test result [facility] ([facility]) Detection of antibodies was performed by Radioimmunoassay (MIROSLAVA) methodology. Limitations of analysis: Reagent effectiveness may affect the signal intensity of the response. Although rare, false positive or false negative results may occur. All results should be interpreted in the context of clinical findings, relevant history, and other laboratory data. Laboratory test finding (navigational concept) Laboratory test result [facility] ([facility]) <content> < /content>
<content>Interpretive Result Table</content>
<content> </content>
<content>INTERPRETIVE RESULT: Negative</content>
<content>TEST: anti-MuSK</content>
<content>TECHNICAL RESULT: <1:10</content>
<content>REFERENCE RANGE: Negative <1:10, Borderline 1:10, Positive >=1:20</content>
<content> </content>
<content> ----</content>
<content></content> Nuclear Ab [Presence] in Serum Laboratory test result 0-0 [facility] ([facility]) titer pending Sjogrens syndrome-B extractable nuclear Ab [Units/volu me] in Serum Laboratory test result [facility] musk ab cheri ra ssa ssb anca lyme parris Rheumatoid factor [Units/volume] in Serum or Plasma 10.6 U/mL 0-13.9 9 [facility] ([facility]) musk ab cheri ra ssa ssb anca lyme parris ID Date Data Source [id number] 10/24/2020 12:49:[address] [facility]) Name Value Range Interpretation Code Description Data Randa rce(s) Supporting Document(s) Neutrophil cytoplasmic Ab [Presence] in Serum Laboratory test result [facility] ([facility]) ANCA Screen includes evaluation for p-AN CA, c-ANCA and atypical p-ANCA. A positive ANCA [...] (IFA) on HEp-2 cells, may be ordered. ID Date Data Source [id number] 10/24/2020 12:49:00 PM EDT [facility] ([facility]) Name Value Range Interpretation Code Description Data Randa rce(s) Supporting Document(s) Creatine kinase [Enzymatic activity/volume] in Serum or Plasma 52 U /L 26-174 [facility] ([facility]) musk ab cheri ra ssa ssb anca lyme parris C reactive protein [Mass/volume] in Serum or Plasma 1.6 mg/dL 0-1.0 Above high normal [facility] ([facility]) musk ab cheri ra ssa ssb anca lyme parris Miscellaneous Laboratory test result [facility] ([facility]) musk ab cheri ra ssa ssb anca lyme parris Erythrocyte sedimentation rate by Westergren method 10 mm/hr 0-20 [facility] ([facility]) musk ab cheri ra ssa ssb anca lyme parris ID Date Data Source [id number] 10/24/2020 12:49:00 PM EDT [facility] ([facility]) Name Value Range Interpretation Code Description Data Randa rce(s) Supporting Document(s) Glucose [Mass/volume] in Serum or Plasma 86 mg/dL 74-106 [facility]) [employer] Diabetes Association (ADA) Recommended Range is 65-99 mg/dL Urea nitrogen [Moles/volume] in Serum or Plasma 9 mg/dL 6-20 [facility] ([facility]) Sodium [Moles/volume] in Serum or Plasma 141 mmol/L 136-145 [facility] ([facility]) Creatinine [Mass/volume] in Serum or Plasma 0.7 mg/dL 0.5-1.3 [facility] ([facility]) Carbon dioxide, total [Moles/volume] in Serum or Plasma 23 meq/L 20 -31 [facility] ([facility]) Potassium [Moles/volume] in Serum or Plasma 4.0 mmol/L 3.5-5.3 [facility] ([facility]) Chloride [Moles/volume] in Serum or Plasma 107 mmol/L 98-107 [facility] ([facility]) eGFR-female 97 mL/m/1.73m [facility] ([facility]) eGFR-Aa female 117 mL/m/1.73m [facility] ([facility]) <content>Normal Kidney Function or Mild Disease GFR >59 mL/min/1.73m2</content>
<content>Chronic Kidney Disease GFR 15-59 mL/min/1.73m2</content>
<content>Renal Failure GFR <15 mL/min/1.73m2</content>
<content></content> Anion Gap 11 mmol/L 7-16 [facility] Alanine aminotransferase [Enzymatic activity/volume] in Seru m or Plasma 24 U/L 4-36 [facility] ([facility]) Effective 08/16/2016: [facility] has indicated interference with the drugs sulfasalazine and sulfapyridine. They suggest collection should occur prior to drug administration due to falsely depressed results. Aspartate aminotransferase [Enzymatic activity/volume] in Serum or Plasma 26 U/L 8-33 [facility]) Alkaline phosphatase [Enzymatic activity/volume] in Serum or Plasma 66 U/L 46-116 [facility] ([facility]) Albumin [Mass/volume] in Serum or Plasma 4.3 g/dL 3.6-5.1 [facility] ([facility]) Protein [Mass/volume] in Serum or Plasma 7.3 g/dL 6.4-8.3 [facility] ([facility]) Results may reflect a potential interfer ence in Total Protein results in patients receiving dextran as blood volume expanders. Bilirubin.total [Mass/volume] in Serum or Plasma 0.8 mg/dL 0.3-1.2 [facility] ([facility]) Albumin/Globulin [Mass Ratio] in Serum or Plasma 1.4 Ratio 1.0-2.0 [facility] ([facility]) Globulin [Mass/volume] in Serum by calculation 3 g/dL 1.9-3.7 [facility] ([facility]) Calcium [Mass/volume] in Serum or Plasma 9.6 mg/dL 8.9-10.5 [facility] ([facility]) ID Date Data Source [id number] 10/24/2020 12:49:00 PM EDT [facility]) Name Value Range Interpretation Code Description Data Randa rce(s) Supporting Document(s) WBC. 10.58 x10E3/uL 4.2-12.0 [facility] ([facility]) Hemoglobin [Mass/volume] in Blood 12.8 g/dL 12.0-16.0 [facility] ([facility]) Erythrocytes [#/volume] in Blood by Automated count 4.24 x10E6/uL 3.9 -5.4 [facility] ([facility]) MCH 30.1 pg 27-33 [facility]) MCV 89.2 fL 80-98 [facility]) Hematocrit [Volume Fraction] of Blood by Automated count 37.8 % 3 6-47 [facility] ([facility]) Platelets [#/volume] in Blood by Automated count 281 x10E3/uL 135-420 [facility] ([facility]) RDW 13.1 % 11.2-15.2 [facility]) MCHC 33.7 g/dL 32-36 [facility]) MPV 8.5 fL 7.0-12.3 [facility]) % Katerine 75.9 % 41.0-80.0 [facility]) %Lym 18.6 % 10.0-45.2 [facility]) %Baso 0.4 % 0.0-3.0 [facility]) %Hubbard 4.1 % 2.0-13.0 [facility]) Eosinophils [#/volume] in Blood by Automated count 1.0 % 0.0-8.0 [facility] ([facility]) Hubbard 0.4 x10E3/uL 0.0-1.0 [facility] Lymp 2.0 x10E3/uL 0.6-3.1 [facility]) Neut 8.0 x10E3/uL 2.0-8.1 [facility]) Baso 0.0 x10E3/uL 0.0-0.2 [facility] Eos 0.1 x10E3/uL 0.0-0.6 [facility]) ID Date Data Source [id number] 10/31/2020 12:42:00 PM EDT [facility] Received: 10/25/2020 at 02:53:00 AMD : [facility], [address], [place], [address], Ilsa Hinojosa M.D.,PhD Received: 10/25/2020 at 02:53:00 QPT : [facility], [address], [address] [place], [address], Kiko Crisostomo MD Received: 10/25/2020 at 02:53:00 QPT : [facility], [address], [address] [place], [address], Kiko Crisostomo MD Received: 10/25/2020 at 02:53:00 WAO : [facility], [address] [place] [address], [address] [place] [address], [place], [phone], Shaan Gilbert Name Value Range Interpretation Code Description Data Randa rce(s) Supporting Document(s) Neutrophil cytoplasmic Ab [Presence] in Serum Negative [facility] ANCA Screen includes evaluation for p-AN CA, c-ANCA andatypical p-ANCA. A positive ANCA screen reflexes totiter and pattern(s), e.g., cytoplasmic pattern(c-ANCA), perinuclear pattern (p-ANCA), or atypicalp-ANCA pattern. c-ANCA and p-ANCA are observed invasculitis, whereas atypical p-ANCA is observed in IBD(Inflammatory Bowel Disease). Atypical p-ANCA isdetected in about 55% to 80% of patients withulcerative colitis but only 5% to 25% of patients withCrohn's disease.Nuclear staining may have obscured P-ANCA or atypicalP-ANCA staining. Recommend that KRISTINA's for anti-myeloperoxidase (MPO) and anti-proteinase 3 antibody(PR3) be promptly ordered, if not already ordered.To verify the presence of antinuclear antibody (CHERI)and determine its titer and pattern, the test for ANAperformed by indirect immunofluorescence (IFA) onHEp-2 cells, may be ordered. ID Date Data Source [id number] 10/31/2020 12:42:00 PM EDT [facility] Received: 10/25/2020 at 02:53:00 AMD : [facility], [address], [place], [address], Ilsa Hinojosa M.D.,PhD Received: 10/25/2020 at 02:53:00 QPT : [facility], [address], [address] [place], [address], Kiko Crisostomo MD Received: 10/25/2020 at 02:53:00 QPT : [facility], [address] [facility], [address] [place] [address], [phone], Kiko Crisostomo MD Received: 10/25/2020 at 02:53:00 WAO : [facility], [address] [place] [address], [phone], Vivmarioa Gilbert Name Value Range Interpretation Code Description Data Randa rce(s) Supporting Document(s) Sjogrens syndrome-A extractable nuclear Ab [Units/volume] in Serum by Immunoassay <1.0 NEG AI <1.0 NEG Normal (applies to non-numeric results) [facility] Sjogrens syndrome-B extractable nuclear Ab [Units/volume] in Serum by Immunoassay <1.0 NEG AI <1.0 NEG Normal (applies to non-numeric results) [facility] ID Date Data Source [id number] 10/31/2020 12:42:00 PM EDT [facility] Received: 10/25/2020 at 02:53:00 AMD : [facility], [address], [place], [address], Ilsa Hinojosa M.D.,PhD Received: 10/25/2020 at 02:53:00 QPT : [facility], [address] [facility], [address] [place] [address], [phone], Kiko Crisostomo MD Received: 10/25/2020 at 02:53:00 QPT : [facility], [address] [facility], [address] [place] [address], [phone] MD Received: 10/25/2020 at 02:53:00 WAO : [facility], [address] [place] [address], [phone], Vivsterlingnda Gilbert Name Value Range Interpretation Code Description Data Randa rce(s) Supporting Document(s) Angiotensin converting enzyme [Enzymatic activity/volu me] in Serum or Plasma 21 U/L 9-67 Normal (applies to non-numeric results) [facility] ID Date Data Source [id number] 10/31/2020 12:42:00 PM EDT [facility] Received: 10/25/2020 at 02:53:00 AMD : [facility], [address], [place], [address], Ilsa Hinojosa M.D.,PhD Received: 10/25/2020 at 02:53:00 QPT : [facility], [address] [facility], [address] [place] [address], [phone], Kiko Crisostomo MD Received: 10/25/2020 at 02:53:00 QPT : [facility], [address] [place] [address], [address] [place] [address], [phone], Kiko Crisostomo MD Received: 10/25/2020 at 02:53:00 WAO : [facility], [address] [place] [address], [address] [place] [address], [place], [phone], Shaan Gilbert Name Value Range Interpretation Code Description Data Randa rce(s) Supporting Document(s) INTERPRETATION [facility] NEGATIVEThis test did not detect abnorma l levels of anti-MuSK antibodies. Reference lab test results [facility] Interpreti ve Result Table INTER PRETIVE RESULT: NegativeTEST: anti-MuSKTECHNICAL RESULT: <1:10REFERENCE RANGE: Negative <1:10, Borderline 1:10, Positive >=1:20 Service comment [facility] Comments: This result does not exclude a diagnosis of MyastheniaGravis.Recommendations: Health care providers, please contact the [employer] Client Services Department at if you wishto speak with a clinical senior compensation consultant regarding this test result.Other testing available: If there is high clinical suspicion formyasthenia gravis, consider testing for LRP4 antibodies.Background information:Myasthenia gravis (MG) is an autoimmune diseaseaffecting the neuromuscular junctions of skeletal muscles. Thepredominant clinical feature is fatigability and weakness of themuscles that typically become progressively worse during periods ofsustained activity and improve after periods of rest (1,2). Age ofonset of MG is variable with an overall incidence of tkydlwndjnidy07:100,000 (1).Anti-MuSK antibodies have been associated with Myasthenia Gravis(3,4). Although the majority of patients with generalized myastheniagravis (MG) have antibodies against AChR (AChR-MG), 10-15% areseronegative. Within this group, about 40% have anti-MuSK antibodies,representing 5-8% of the MG population (3,4). Diagnosis of MuSK MG canbe challenging due to its atypical presentation, including few symptomfluctuations, non-responsiveness to acetylcholinesterase inhibitors duong significant proportion of patients and negative electrodiagnosticstudies when performed on limb muscles (4). Reference lab test method [facility] Detection of antibodies was performed by Radioimmunoassay (MIROSLAVA)methodology.Limitations of analysis: Reagent effectiveness may affect the signalintensity of the response. Although rare, false positive or falsenegative results may occur. All results should be interpreted in thecontext of clinical findings, relevant history, and other laboratorydata. Service comment 04 [facility] 1. Tanner K, et al. (2005) ELENA 293: 1 906-14. (PMID: [id number])2. MARIEL Reyes, et al. (2000) Postgrad Med 107: 211-4, 220-2. (PMID: 78039086)3. Chinyere-Sherin S, et al. (2014) J Autoimmun 52: 90-100. (PMID: 44865524)4. Dasha Guerrero et al. (2013) Autoimmun Rev 12: 931-5. (PMID: 67947814)This test was developed and its analytical performance characteristicshave been determined by [facility]. It has not been cleared orapproved by the U.S. Food and Drug Administration. This assay has beenvalidated pursuant to the CLIA regulations and is used for clinicalpurposes.Laboratory oversight provided by Shaan Hunt M.D., Ph.D., Ceci becerra, [facility] (CLIA# [id number])Testing performed at:[facility] [address] [place] [address] ID Date Data Source [id number] 10/16/2020 01:11:00 PM EDT [facility] Name Value Range Interpretation Code Description Data Randa rce(s) Supporting Document(s) SARS coronavirus 2 RNA [Presence] in Res piratory specimen by COLBY with probe detection NOT DETECTED [facility] This lab was reported by [facility]. ID Date Data Source [id number] 10/16/2020 02:27:08 PM EDT [facility] Name Value Range Interpretation Code Description Data Randa rce(s) Supporting Document(s) SPECIMEN DESCRIPTION Lab [facility] of [facility] INFLUENZA A (NEG) [facility] INFLUENZA B (NEG) [facility] of [facility] RSV (NEG) [facility] COMMENT [facility] THE U.S. FDA HAS MADE THIS TEST AVAILABL EUNDER AN EMERGENCY USE AUTHORIZATION(EUA) FOR THE DETECTION AND/OR DIAGNOSISOF THE VIRUS THAT CAUSES COVID-19.PERFORMED AT [facility] [address] COVID19 RESULT (NDET) [facility] martine FLOREZ THIS ASSAY AMPLIFIES AND DETECTSTHE TARG ET RNA USING REAL-TIME PCR.TESTING PERFORMED ON [employer] GENEXPERTNEGATIVE 2019_NCOV RT-PCR RESULTS DONOT PRECLUDE 2019_NCOV INFECTION ANDSHOULD NOT BE USED THE SOLE BASISFOR PATIENT MANAGEMENT DECISIONS. FIRST TEST [facility] of [employer] [employer] [facility] of [facility] SYMPTOMATIC [facility] of [place] DATE OF SYMPT ONSET Lab [facility] of [facility] HOSPITALIZ[facility] [place] [facility] CONGREGATE CARE SET [facility] of [facility] martine FLOREZ ID Date Data Source [id number] 10/16/2020 09:35:00 AM EDT [facility] DATE OF EXAM: 10/16/2020HEST RADIOGRAPH , SINGLE VIEW INDICATION: SOB TECHNIQUE: Semi-upright AP Portable view of the chest. COMPARISON: MRI chest dated 10/14/2020. FINDINGS: The chest wall and soft tissues are normal. There is no evidence of pleural disease. The lungs are clear. The heart and mediastinal contours are unremarkable. IMPRESSION: The lungs are clear. No focal areas of consolidation are seen. Professional interpretation performed at [facility] .End of diagnostic report for accession: [id number] Interpreted: Shelbie Marrero DOTranscribed: 10/16/2020 09:33 AMSigned: 10/16/2020 09:35 AM Shelbie Marrero DO [facility] ACC # [id number] BILL # [id number] Name Value Range Interpretation Code Description Data Randa rce(s) Supporting Document(s) ID Date Data Source [id number] 10/15/2020 11:10:00 AM EDT [facility] DATE OF EXAM: 10/14/2020 MRI CHEST WITH AND WITHOUT IV CONTRAST CLINICAL HISTORY: THYMOMA, MONITOR, NO METASTASES COMPARISON: CTA dated 04/18/2020. Report from prior CT dated 10/11/2020. TECHNIQUE: Multisequence, multiplanar MRI images were obtained of the chest with and without contrast. This examination was performed with 20 mL ProHance IV contrast from a 20 mL bottle. FINDINGS: Again noted within the superior anterior mediastinum, there is triangular soft tissue measuring 2.7 x 1.4 cm, similar in appearance when compared with the 04/18/2020 CT chest, given the differences in imaging modality. There is no cystic change. The soft tissue mass is relatively circumscribed and without evidence for invasion of the mediastinal structures. There is associated loss of signal intensity on out of phase images, characteristic of thymic hyperplasia. There appears to be a focus of airspace opacity in the medial aspect of the right lower lobe. This is not well assessed with MRI. There is no mediastinal or hilar lymphadenopathy. The heart is normal in size. There is no axillary lymphadenopathy. The visualized osseous structures are grossly intact. The visualized portions of the upper abdomen are grossly unremarkable. 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 Consider chest x-ray to further evaluate. L2End of diagnostic report for accession: [id number] Interpreted: Shelbie Marrero DOTranscribed: 10/14/2020 08:45 PMSigned: 10/15/2020 11:10 AM Shelbie Marrero DO [facility] ACC # [id number] BILL # [id number] Name Value Range Interpretation Code Description Data Randa rce(s) Supporting Document(s) ID Date Data Source [id number] 10/12/2020 04:56:00 PM EDT [facility] DATE OF EXAM: 1EXAM: Thyroid U ltrasound INDICATION: EVAL FOR MASS COMPARISON: None. The thyroid has a homogeneous pattern of echogenicity. The right lobe measures 5.4 x 2.5 x 1.7 cm. No discrete nodule is seen. The left lobe measures 4.8 x 2.3 x 1.6 cm. No discrete nodule is seen. The isthmus measures 1.9 mm in width. Doppler evaluation demonstrates normal vascular flow pattern which is bilaterally symmetric. No abnormal lymph nodes are seen. IMPRESSION: Mild prominence of the thyroid gland with no evidence of a dominant nodule. Professional interpretation performed at [facility] .End of diagnostic report for accession: [id number] Interpreted: Jeremy Aquino MDTranscribed: 10/12/2020 04:55 PMSigned: 10/12/2020 04:56 PM Jeremy Aquino MD [facility] # [id number] BILL # [id number] Name Value Range Interpretation Code Description Data Randa rce(s) Supporting Document(s) ID Date Data Source [id number] 10/17/2020 07:44:05 PM EDT [facility] VIKKI Name Value Range Interpretation Code Description Data Randa [facility](s) Supporting Document(s) ACHR BLOCK AB 6 % [facility] MAURICE Reference range: 0 to 26 Repeated and ve rified INTERPRETIVE INFORMATION: Acetylcholine Blocking Ab Negative ............ 0-26 percent blocking Indeterminate ....... 27-41 percent blocking Positive ............ 42 percent or greater blocking Approximately 85-90 percent of patients with myasthenia gravis (MG) express antibodies to the acetylcholine receptor (AChR), which can be divided into binding, blocking, and modulating antibodies. Binding antibody can activate complement and lead to loss of AChR. Blocking antibody may impair binding of acetylcholine to the receptor, leading to poor muscle contraction. Modulating antibody causes receptor endocytosis resulting in loss of AChR expression, which correlates most closely with clinical severity of disease. Approximately 10-15 percent of individuals with confirmed myasthenia gravis have no measurable binding, blocking, or modulating antibodies. This test was developed and its performance characteristics determined by [employer]. It has not been cleared or approved by the [place] Food and Drug Administration. This test was performed in a CLIA certified laboratory and is intended for clinical purposes. Performed By: [employer] [address] [place] [id number] Reach Lift Truck Driver: Marisol Valadez MD ID Date Data Source [id number] 10/14/2020 05:28:22 PM EDT [facility] Name Value Range Interpretation Code Description Data Randa rce(s) Supporting Document(s) ACHR REC BIND AB 0.1 nmol/L [facility] Reference range: 0.0 to 0.4 INTERPRETIVE INFORMATION: Acetylcholine Binding Ab Negative ....... 0.0 - 0.4 nmol/L Positive ....... 0.5 nmol/L or greater Approximately 85-90 percent of patients with myasthenia gravis (MG) express antibodies to the acetylcholine receptor (AChR), which can be divided into binding, blocking, and modulating antibodies. Binding antibody can activate complement and lead to loss of AChR. Blocking antibody may impair binding of acetylcholine to the receptor, leading to poor muscle contraction. Modulating antibody causes receptor endocytosis resulting in loss of AChR expression, which correlates most closely with clinical severity of disease. Approximately 10-15 percent of individuals with confirmed myasthenia gravis have no measurable binding, blocking, or modulating antibodies. This test was developed and its performance characteristics determined by [employer]. It has not been cleared or approved by the US Food and Drug Administration. This test was performed in a CLIA certified laboratory and is intended for clinical purposes. Performed By: [employer] [address] [place] [id number] Reach Lift Truck Driver: Marisol Valadez MD ID Date Data Source [id number] 10/12/2020 06:42:01 AM EDT [facility] Name Value Range Interpretation Code Description Data Randa rce(s) Supporting Document(s) SODIUM 142 mmol/L (136-145) [facility] POTASSIUM 4.2 mmol/L (3.6-5.2) [facility] CHLORIDE 105 mmol/L (100-108) [facility] CO2 27 mmol/L (22-31) [facility] ANION GAP 10 mmol/L (7-16) [facility] UREA NITROGEN 6 mg/dL (7-24) L [facility] CREATININE 0.68 mg/dL (0.60-1.00) [facility] BUN/CREAT RATIO 8.8 RATIO (10.0-20.0) L [facility] GLUCOSE 73 mg/dL (70-99) [facility] CALCIUM 8.8 mg/dL (8.4-10.2) [facility] TOTAL PROTEIN 6.6 g/dL (6.4-8.2) [facility] ALBUMIN 3.4 g/dL (3.5-4.6) L [facility] GLOBULIN 3.2 g/dL (2.7-4.3) [facility] ALB/GLOB RATIO 1.1 RATIO [facility] ALKALINE PHOSPHATASE 67 U/L (45-117) [facility] BILIRUBIN,TOTAL 1.2 mg/dL (0.0-1.0) H [facility] PLEASE NOTE:Total bilirubin results may be falselyelevated in patients taking Eltrombopag. AST (SGOT) 10 U/L (11-39) L [facility] ALT (SGPT) 17 U/L (12-78) [facility] GFR >60 ml/min/1.73m2 (>59) [facility] GFR ( AMER) >60 ml/min/1.73m2 (>59) [facility] GFR INTERPRETATION [facility] --NORMAL KIDNEY FUNCTION OR MILD DISEASE - GFR >OR= 60CHRONIC KIDNEY DISEASE - GFR 15 - 59RENAL FAILURE - GFR <15 Est. GFR calculation based on the MDRDstudy equation, which assumes a steadystate for creatinine. Est. GFR should notbe used for medication dosing. ID Date Data Source [id number] 10/12/2020 06:42:01 AM EDT [facility] Name Value Range Interpretation Code Description Data Randa rce(s) Supporting Document(s) FREE THYROXINE @ 1.10 ng/dL (0.76-1.46) [facility] PERFORMED AT [address] [facility] [address] ID Date Data Source [id number] 10/12/2020 06:42:01 AM EDT [facility] Name Value Range Interpretation Code Description Data Randa rce(s) Supporting Document(s) TSH,ULTRASENSITIVE @ 0.931 mIU/L (0.360-4.170) [facility] [facility] [address] ID Date Data Source [id number] 10/12/2020 06:42:01 AM EDT [facility] Name Value Range Interpretation Code Description Data Randa rce(s) Supporting Document(s) MAGNESIUM 2.1 mg/dL (1.7-2.4) [facility] ID Date Data Source [id number] 10/12/2020 06:07:57 AM EDT [facility] Name Value Range Interpretation Code Description Data Randa rce(s) Supporting Document(s) WBC 8.7 10*3/uL (4.1-11.0) [facility] RBC 4.16 10*6/uL (4.00-5.40) [facility] HGB 12.1 g/dL (12.0-16.0) [facility] HCT 36.8 % (36.0-47.0) [facility] MCV 88.5 fL (80.0-95.0) [facility] MCH 29.0 pg (27.0-32.0) [facility] MCHC 32.8 g/dL (32.0-36.0) [facility] RDW 13.4 % (10.5-14.5) [facility] PLT 275 10*3/uL (150-450) [facility] MPV 9.6 fL (7.1-10.7) [facility] ID Date Data Source [id number] 10/11/2020 10:30:00 AM EDT [facility] 1 OrderSheet [facility] Emergency Department [address] [place] [address] Phone #: ext- [phone] 10/11/2020 10:27 Patient: AUGIE SINGER Sex: F : 1990 Age: 30yWEIGHT:117.9 kg (S) HEIGHT:67 inches (S) BMI:40.7ALLERGIES: No Known Drug AllergyCHIEF COMPLAINT: weaknessDIAGNOSIS: AstheniaLAB ORDERSOrder Description Priority Entered Acknowledged InitialedCBC w Diff STAT 11:10/11/2020 11:34 Miles Peguero RN P.A.-C;CMP STAT 11:10/11/2020 11:34 Miles Peguero RN P.A.-C;Lipase STAT 11:10/11/2020 11:34 Miles Peguero RN P.A.-C;Troponin-T STAT 11:10/11/2020 11:35 Miles Peguero RN P.A.-C;Magnesium STAT 11:10/11/2020 11:35 Miles Peguero RN P.A.-C;TSH STAT 11:10/11/2020 11:35 Miles Peguero RN P.A.-C;CRP STAT 11:10/11/2020 11:35 Miles Peguero RN P.A.-C;Sed. Rate STAT 11:10/11/2020 11:35 Miles Peguero RN P.A.-C;BMP STAT 11:10/11/2020 11:35 Miles Peguero RN P.A.-C;Urinalysis (Clean STAT 11:10/11/2020 11:36 Rosy Enamorado) Aylin Covarrubias P.A.-C; [id number] STAT 11:29 10/11/2020 11:35 Miles 2 OrderSheet [facility] Emergency Department [address] [place] [address] Phone #: ext- [phone] 10/11/2020 10:27 Patient: AUGIE SINGER Sex: F : 1990 Age: 30y Korina Peguero RN P.A.-C;BNP STAT 12:51 10/11/2020 12:58 Miles Peguero RN P.A.-C;HCG Urine Qual STAT 13:39 10/11/2020 13:58 Korina Sykes R.N. P.A.-C;COVID-19 CAH (Not STAT 17:02 10/11/2020 17:07 TerrySymptomatic as Korina Peguero RNDefined by [facility]) P.A.-C;([id number]) (NotFirst Test) (NotHospitalized) (Not) (NotResident inCongregate CareSetting) (NotEmployed inHealthcare Setting) NOTES: RAPID: TRANSFERDIAGNOSTIC STUDY ORDERSOrder Description Priority Entered Acknowledged InitialedCT Head W/O Cont STAT 14:06 10/11/2020 14:17 Miles(Oxygen?(No)) Korina Peguero RN P.A.-C; Reason for Study: weaknessCT CTA CHEST STAT 14:06 10/11/2020 14:17 Miles(NONCOR) W CON Korina CLAROS PP P.A.- C;(Oxygen?(No))(IV?(Yes)) Reason for Study: weakness and elevated d-dimerMEDICATION/IV/DRIP/FLUID ORDERSOrder Description Priority Entered Acknowledged InitialedIV NS : Bolus 500 11:21 10/11/2020 Cancelled: Patient Refusal 11:53 TerrymL, then 100 mL/hr Korina Peguero RN P.A.-C;IV NS : Bolus 500 13:39 10/11/2020 14:17 TerrymL, then 100 mL/hr Korina Peguero RN P.A.-C; 3 OrderSheet [facility] Emergency Department [address] [place] [address] Phone #: ext- [phone] 10/11/2020 10:27 Patient: AUGIE SINGER Sex: F : 1990 Age: 30yGENERAL ORDERSOrder Description Priority Entered Acknowledged InitialedBlood Pressure 11:10/11/2020 11:34 TerryMonitor Korina Peguero RN P.A.-C;Socket Welder Helper 11:21 10/11/2020 11:34 Miles(continuous) Korina Peguero RN P.A.-C;EKG 11:21 10/11/2020 11:34 Miles Peguero RN P.A.-C;NPO 11:21 10/11/2020 11:34 Miles Peguero RN P.A.-C;Obtain Old EKG 11:10/11/2020 11:34 Miles Peguero RN P.A.-C;Obtain Old Records 11:21 10/11/2020 11:34 Miles Peguero RN P.A.-C;Pulse oximeter 11:10/11/2020 11:34 Miles(Continuous) Korina Peguero RN P.A.-C;Saline Lock 11:21 10/11/2020 11:34 Miles Peguero RN P.A.-C;Vitals 11:21 10/11/2020 11:34 Miles Peguero RN P.A.-C;[Electronically signed by Elsie Fregoso R.N. (18:48 )][Electronically signed by Korina Rodriguez P.A.-C (00:21 10/12/2020)][Electronically locked by Elsie Fregoso R.N. (18:48 10/11/2020)] Name Value Range Interpretation Code Description Data Randa rce(s) Supporting Document(s) ID Date Data Source [id number] 10/11/2020 10:30:00 AM EDT [facility] 1 Medication Reconciliation Report [facility] Emergency Department [address] [place] [address] Phone #: ext- [phone] 10/11/2020 10:27 Patient: AUGIE SINGER Sex: F : 1990 Age: 30yWeight: 117.9 kgHeight/Length: 67 in.BMI: 40.7ALLERGIES: No Known Drug AllergyThe patient's Home Medications are listed below:THE FOLLOWING MEDICATIONS NEED TO BE RECONCILED: Omeprazole Oral 20 mg, dailyThe source(s) of the original Home Medication information:patientThe following Medications were given to the patient in the Emergency Department:IV NS IV Fluids bolus 500 mL over 30 minute(s), then 100 mL/hr, administered: 14:17 10/11/2020The following Medications were prescribed to the patient:None. Name Value Range Interpretation Code Description Data Randa rce(s) Supporting Document(s) ID Date Data Source [id number] 10/11/2020 10:30:00 AM EDT [facility] 1 Medication Administration Record [facility] Emergency Department [address] [place] [address] Phone #: ext- [phone] 10/11/2020 10:27 Patient: AUGIE SINGER Sex: F : 1990 Age: 30yWeight: 117.9 kgHeight/Length: 67 inBMI: 40.7ALLERGIES: No Known Drug Allergy Date/Time Medication Administered Medication OrderedStart IV NS IV NS : Bolus 500 mL, then 53805:17 10/11/2020 Dose: IV Fluids mL/Gui Peguero RN Rate: 100 mL/hr over 5 hour(s)---- Bolus: 500 mL over 30 minute(s)Stop Dispensed: 1000 mL bag18:30 10/11/2020 Site: #[facility] QIANLattimer MinesElsie R.N. Name Value Range Interpretation Code Description Data Randa [facility](s) Supporting Document(s) ID Date Data Source [id number] 10/11/2020 10:30:00 AM EDT [facility] 1 General Instructions [facility] Emergency Department [address] [place] [address] Phone #: ext- [phone] 10/11/2020 10:27 Patient: AUGIE SINGER Sex: F : 1990 Age: 30yAcute generalized weakness. (? MYASTHENIA GRAVIS).(Electronically signed by Korina Rodriguez P.A.-C 10/12/2020 00:21) Name Value Range Interpretation Code Description Data Randa rce(s) Supporting Document(s) ID Date Data Source [id number] 10/11/2020 10:30:00 AM EDT [facility] 1 Clinical Report - Nurses [facility] Emergency Department [address] [place] [address] Phone #: [phone] ext- [phone] 10/11/2020 10:27 Patient: AUGIE SINGER Sex: F : 1990 Age: 30yTRIAGEArrived by EMS. Historian: patient. Unaccompanied.Acuity: LEVEL 3.Chief Complaint: CHEST PAIN.Alert. No acute distress.This started today. ( Pt reprots waking up feeling heaviness/ pressure in arms and legs with int. chestpain).Treatment SOCIAL STUDIES DEPARTMENT CHAIR:None. --10:37 10/11/20 Simone Martinez10:36 10/11/20. BP: 144/94. MAP: 110. HR: 70. RR: 20. O2 saturation: 99% on room air. Temp: 98 F(oral). Pain level now: 07/26. --10:37 10/11/20 Simone Martinez.Weight: 117.9 kg stated. Height/Length: 67 inches Per Patient. BMI: 40.7. --10:36 10/11/20 Simone Martinez.MedicationsOmeprazole Oral 20 mg, daily. --10:39 10/11/20 Simone Martinez.AllergiesNo Known Drug Allergy. --10:39 10/11/20 Simone Martinez.Medicatio n/allergy information source: the patient. --10:37 10/11/20 Simone Martinez.ADDITIONAL SURGERIES:None. --10:40 10/11/20 Simone Martinez.HistorySOCIAL HX: Never smoker. No alcohol use or drug use. She was offered HIV testing but declined andhepatitis C testing but declined.SELF HARM ASSESSMENT: Self harm assessment was performed. The patient answered "no" to thequestion(s) "Have you recently felt down, depressed, or hopeless?" and "Do you have thoughts of harmingor killing yourself?".ABUSE ASSESSMENT: No report of abuse.NUTRITIONAL RISK ASSESSMENT: The nutritional risk assessment revealed no deficiencies. 2 Clinical Report - Nurses [facility] Emergency Department [address] [place] [address] Phone #: ext- [phone] 10/11/2020 10:27 [id number] Sex[facility] F : 1990 Age: 30y FUNCTIONAL ASSESSMENT: Functional assessment: no impairments noted. LEARNING NEEDS ASSESSMENT: The learning needs assessment revealed no barriers. FALL RISK ASSESSMENT: Fall risk assessment completed. No risk factors identified. SKIN INTEGRITY ASSESSMENT: Skin integrity risk assessment completed. No skin integrity risk identified. --10:37 10/11/20 Simone Martinez SOCIAL HX: The patient has not traveled outside the [place] --10:40 10/11/20 Simone Martinez.PHYSICAL ASSESSMENTTo room via stretcher.GENERAL / NEURO / PSYCH: Alert. Oriented X 4.RESPIRATORY: Respirations not labored. Chest nontender. Breath sounds within normal limits.CVS: Cardiac rhythm: (1033). Heart sounds within normal limits. Pulses within normal limits. Capillaryrefill less than 2 seconds.GI / : Abdomen soft and nontender.EXTREMITIES: No lower extremity edema.SKIN: Skin is warm and dry. Skin is non-tender. --10:45 10/11/20 Miles Peguero RN.NURSING PROGRESS NOTES10:45 10/11/20. electrical engineer mep, NIBP monitor and pulse oximeter placed on patient; green hide inspector-Lead II; monitor alarms on; monitor strip added to paper chart. Patient gowned. Head of bed elevated 75degrees. Two patient identifiers checked. Call light placed in reach. Bed placed in lowest position.Brakes of bed on. Patient ready for evaluation- chart flagged and notification provided. --10:46 10/11/20Miles Peguero RN Cardiac rhythm: normal sinus rhythm; (1028). EKG time: (10:28 10/11/2020). EKG was performed by a tech and shown to the ED physician. NSR. --10:46 10/11/20 Miles Peguero RN 11:02 10/11/20. BP: 144/94. HR: 76. RR: 16. O2 saturation: 100%. --11:02 10/11/20 [facility][note 3] TechMikeAylin, Tech1 11:11 10/11/2020 Site #1 started via IV in the left antecubital space with an 20g angiocath; two attempts. Blood drawn: rainbow set. Saline lock flushed with 10 mL saline. --11:18 10/11/20 Miles daniel RN Checked patient name and birthdate: patient confirmed. Blood samples drawn from the left antecubital space peripheral IV site by nurse per protocol ; labeled in presence of the patient and sent to lab: rainbow set. Initial blood discarded. Line flushed with 10 mL normal saline post blood draw (1111). --11:18 10/11/20 Miles Peguero RN Warming measures: blanket applied (6591). --11:54 10/11/20 Miles Peguero RN 3 Clinical Report - Nurses [facility] Emergency Department [address] [place] [address] Phone #: ext- [phone] 10/11/2020 10:27 Patient: AUGIE SINGER Sex: F : 1990 Age: 30y12:17 10/11/20. BP: 137/80. HR: 67. RR: 17. O2 saturation: 100%. --12:17 10/11/20 [facility][note 3] TechAylinCARONDELET [facility] Onta654:40 10/11/20. BP: 137/82. HR: 76. RR: 19. O2 saturation: 100%. --12:40 10/11/20 [facility][note 3] TechMikeAylinCARONDELET ST[facility] [id number] patient name and birthdate. Blood samples drawn by tech: montse corado. (1300). --12:59 10/11/20Miles Peguero RN13:41 10/11/20. BP: 148/99. HR: 74. RR: 18. O2 saturation: 100%. --13:42 10/11/20 [facility],AylinCARONDELET [facility] Smck570:04 10/11/20. BP: 165/123. HR: 64. RR: 13. O2 saturation: 100%. --14:05 10/11/20 [facility] ClinicsAylin Vous235:17 10/11/2020 Started bag #1 1000 mL IV Fluids IV NS; bolus of 500 mL over 30 minute(s) then at 100mL/hr over 5 hour(s) via site #1 via IV pump. Allergies verified and confirmed 5 rights. IV patencyestablished. IV site checked: no pain, redness, or swelling. IV flushed thoroughly pre- and post-medicationadministration. Information reviewed with patient. --14:17 10/11/20 JIMMIE Mauriceatikita transported to CT by wheelchair with mask and tv technician. (6035). --14:31 10/11/20 Chema Ansari returned from CT by wheelchair with mask and tv technician. (3108). --14:47 10/11/20 GARETH Ansari15:10/11/20. BP: 140/87. HR: 71. RR: 17. O2 saturation: 98%. --15:05 10/11/20 [facility] Qoeu5Ujpm light placed in reach. Side rails up x 2. ( 1530 pt resting 45 degrees in bed stating " Last night mypulse ox machine showed when laying down oxygen sat 92 % and pulse in 50 which went back to normalsitting up", Denise Rodriguez notified pt stood at side of bed with sat 98 % and pulse 83, pt c/o legs to heavy towalk and feeling unsteady, pt returned to bed, and laying sat 100 % and pulse 78 BPM). --15:42 10/11/20Miles Peguero RN15:42 10/11/20. BP: 115/99. MAP: 104. HR: 74. RR: 20. O2 saturation: 100% on room air. Pain level now:03/28. --15:43 10/11/20 Miles Peguero RN16:11 10/11/20. BP: 134/89. HR: 78. RR: 17. O2 saturation: 100%. --16:11 10/11/20 [facility][note 3] Tech,[facility] Tvjb361:37 10/11/20. BP: 133/90. HR: 75. RR: 12. O2 saturation: 100%. --16:37 10/11/20 [facility][note 3] Tech,[facility] Tech1 4 Clinical Report - Nurses [facility] Emergency Department [address] [place] [address] Phone #: ext- [phone] 10/11/2020 10:27 Patient: AUGIE SINGER Sex: F : 1990 Age: 30y 18:13 10/11/20. BP: 152/116. HR: 74. RR: 11. O2 saturation: 99%. --18:14 10/11/20 Alex Campos 18:28 10/11/20. BP: 142/74. MAP: 96. HR: 70. RR: 17. O2 saturation: 98% on room air. Temp: 98.7 F (oral). --18:28 10/11/20 Simone Martinez 18:30 10/11/2020 IV Fluids IV NS via IV site #1 Discontinued: infused upon transfer. Total amount infused: 1000 mL. --18:48 10/11/20 Elsie Fregoso R.N.DISPOSITION / DISCHARGE 18:30 10/11/20. Transferred to [facility]. Visit overview, summary of care (CCDA), Emtala forms and Face Sheet provided to transport team, EMS and transfer facility via paper (ED to ED). ( [facility] to bedside, report called to Sherine Cross RN. Pt going from ED to ED. VS stable, report given to EMS.). --18:45 10/11/20 Elsie Fregoso R.N. 18:30 10/11/20. BP: 142/74. MAP: 96. HR: 70. RR: 18. O2 saturation: 98% on room air. Temp: 98.7 F. Pain level now: 0/10. --18:45 10/11/20 Elsie Fregoso R.N. Departure time: 18:30 10/11/2020. --18:45 10/11/20 Elsie Fregoso R.N.Locked/Released at 10/11/2020 18:48 by Elsie Fregoso R.N. Name Value Range Interpretation Code Description Data Randa rce(s) Supporting Document(s) ID Date Data Source [id number] 10/11/2020 10:30:00 AM EDT [facility] 1 Clinical Report - Physicians/Mid Levels [facility] Emergency Department [address] [place] [address] Phone #: ext- [phone] 10/11/2020 10:27 Patient: AUGIE SINGER Sex: F : 1990 Age: 30y Time Seen: 11:08 10/11/2020; initial patient contact, initial documentation. Arrived- By private vehicle. Historian- patient. RETURN VISIT: within past 90 days. Seen now for the same problem as before. Disposition decision: 17:12 10/11/2020.HISTORY OF PRESENT ILLNESS Chief Complaint: WEAKNESS. This started today and is still present. The patient has had weakness. No numbness, tingling, impaired speech or swallowing or visual disturbance. No difficulty walking. She has had a recent fall. No dizziness, altered mental status, seizure or blackouts. Usually is alert and oriented X3 and has normal mobility. (Pt presents to the ER wiht c/o weakness and CP. Sts she felt weakness upon waking today. Does see a fourdrinier tender. Called them and was unable to be seen. Went to the [facility] and they transferred pt to the ER for eval. Pt sts she has seen her PCP about this and has a referral to neurolgoy for eval. Does see cardiology (last appt was early August). Pt seen in ER for CP 2 previous times in last 30 days. Pt has never had a blood clot, but does have a family hx of this. No SOB.). Similar symptoms previously. Recent medical care: The patient was seen recently at another facility.REVIEW OF SYSTEMSNo fever, headache, head injury, chest pain or difficulty breathing. No cough, sputum production, sorethroat, abdominal pain or nausea. No diarrhea, black stools, difficulty with urination, skin rash or enlargedlymph nodes. No joint pain, vomiting, bloody stools or back pain. All other systems reviewed and arenegative.PAST HISTORYSee nurses notes. Problems: Concussion. Contusion. Dizziness. Atypical Chest Pain. Back Pain. Bronchitis. Hypertension. Myofascial Strain. Pedal Edema. Gastroenteritis. 2 Clinical Report - Physicians/[facility] Emergency Department [address] [place] [address] Phone #: wea- [phone] 10/11/2020 10:27 [id number] Sex: F : 1990 Age: 30y Gastroesophageal Reflux Disease. Heart Murmur. Additional Surgeries: Endoscopy. None. Medications: Omeprazole Oral 20 mg, daily. Allergies: No Known Drug Allergy.SOCIAL HISTORYNever smoker. No alcohol use or drug use.ADDITIONAL NOTESThe nursing notes have been reviewed.PHYSICAL EXAMVital Signs: 10/11/2020 10:36 BP: 144/94. MAP: 110. HR: 70. RR: 20. O2 saturation: 99% on room air.Temp: 98 F. Pain level now: 610. Have been reviewed. Oxygen saturation normal.Appearance: Alert. No acute distress.Eyes: Eyelids appear normal to inspection. Conjunctivae and sclerae appear normal to inspection.Corneas appear normal to inspection. Pupils equal, round and reactive to light and light.Accommodation normal. EOMs intact. Periorbital areas appear normal to inspection. Anteriorchambers clear.ENT: Normal ENT inspection. Airway intact. TM's normal. Ears normal. Nose normal. Nares normal.Pharynx normal. Moist mucous membranes. Uvula midline. Voice normal.Neck: Normal inspection. Neck supple.CVS: Normal heart rate and rhythm. No JVD present. Pulses normal. Capillary refill normal. Strongperipheral pulses. Heart sounds normal. Pulses: right radial 2+; left radial 2+; right dorsalis pedis 2+; leftdorsalis pedis 2+; right posterior tibial 2+; left posterior tibial 2+.Respiratory: Chest normal on inspection. No respiratory distress. Unlabored respirations. Lungs clear.Good chest movement. Breath sounds normal and equal.Abdomen: Normal inspection. Soft and nontender. Bowel sounds normal. No distention.Skin: Skin warm and dry.Extremities: Extremities exhibit normal ROM. No lower extremity edema.Neuro: Awake. Alert. Oriented X 3. Mood/affect normal. Speech normal. Cranial nerves II throughXII intact and normal (as tested). She has weakness. Reflex exam: right triceps 2+, left triceps 2+, rightbiceps 2+, left biceps 2+, right brachioradialis 2+ and left brachioradialis 2+.Psych: Cognition normal. Thought process and content normal. Insight and judgement normal.LABS, X-RAYS, AND EKGEKG: Normal EKG. Normal sinus rhythm. NSR; voltage criteria for LVH; abnromal ECG. 3 Clinical Report - P hysicians/Mid Levels [facility] Emergency Department [address] [place] [address] Phone #: ext- [phone] 10/11/2020 10:27 Patient: AUGIE SINGER Sex: F : 1990 Age: 30yReviewed by attending.CT Head: (Thor ho James - 10/11/2020 3:03:56 PMneg). The study was interpreted by the radiologist.CTA Pulmonary Arteries: Thor ho James - 10/11/2020 3:15:34 PM1. No pulmonary embolism.2. Prominent thymus which suggests hyperplasia. The patient has weakness. Thymic hyperplasia can beassociated with myasthenia gravis. The study was interpreted by the radiologist.Laboratory Tests:Beta-HCG, Qual Urine: (AME: 10/11/2020 11:30) ( [facility] 10/11/2020 13:45) Final results Test Result Flag Units (Reference) HCG URINE QUAL NEGATIVE (NORMAL: NEGAT HCG URINE QL REENTER NEGATIVE (NORMAL: NEGAT { KIT LOT # [id number] ){ KIT EXP DATE02/15/22 ){ PROCEDURAL CONTROL VALID)BNP: (AME: 10/11/2020 11:10) ( [facility] 10/11/2020 13:43) Final results Test Result Flag Units (Reference) BNP 42 PG/ML (0 - 125)D-Dimer: (AME: 10/11/2020 12:59) ( [facility] 10/11/2020 13:29) Final results Test Result Flag Units (Reference) D-DIMER QUANT 0.89 H ug/mL (0.27 - 0.50)CBC w Diff: (AME: 10/11/2020 11:10) ( [facility] 10/11/2020 11:31) Final results Test Result Flag Units (Reference) CBC W /AUTOMATED DIFF COMPLETE BLOOD COUNT WBC 9.8 10/uL (4.2 - 11.0) RBC 4.26 10/uL (4.20 - 5.40) HEMOGLOBIN 12.6 g/dL (12.0 - 16.0) HEMATOCRIT 37.4 % (37.0 - 47.0) MCV 87.8 fL (81.0 - 101) MCH 29.6 pg (27.0 - 34.0) MCHC 33.7 g/dL (31.0 - 36.0) RDW 13.0 % (11.5 - 14.5) PLATELETS 335 10/uL (150 - 450) MPV 10.8 H fL (7.4 - 10.4) NEUT 81.7 H % (37.0 - 80.0) LYMPH 11.6 L % (25.0 - 40.0) MONO 5.4 % (3.0 - 8.0) EOS 0.3 % (0.0 - 7.0) BASO 0.6 % (0.0 - 2.5) %IG 0.4 H % (0.0 - 0.0) %NRBC 0.0 % (0.0 - 0.0) #NEUT 8.03 H 10/uL (2.00 - 6.90) #LYMPH 1.14 10/uL (0.60 - 3.40) #MONO 0.53 10/uL (0.00 - 0.90) #EOS 0.03 10/uL (0.00 - 0.70) #BASO 0.06 10/uL (0.00 - 0.20) #IG 0.04 10/uL (0.00 - 0.10) 4 Clinical Report - Physicians/Mid Levels [facility] Emergency Department [address] [place] [address] Phone #: ext- [phone] 10/11/2020 10:27 Patient: AUGIE SINGER Sex: F : 1990 Age: 30y #NRBC 0.00 10/uL (0.00 - 0.00) MANUAL DIFF NOT INDICATED RBC MORPH NOT INDICATEDCMP: (AME: 10/11/2020 11:10) ( MsgRcvd 10/11/2020 12:02) Final results Test Result Flag Units (Reference) COMPREHENSIVE METABOLIC PANEL COMPREHENSIVE METABOLIC PANEL SODIUM 140 mEq/L (134 - 153) POTASSIUM 4.0 mEq/L (3.6 - 5.0) CHLORIDE 105 mEq/L (98 - 107) CO2 25 MEQ/L (22 - 30) GLUCOSE 87 MG/DL (70 - 99) BUN 6 L MG/DL (7 - 21) CREATININE 0.6 L MG/DL (0.7 - 1.5) BUN/CREAT 10 (8 - 27) TOTAL PROTEIN 7.4 G/DL (6.3 - 8.2) ALBUMIN 4.5 G/DL (3.9 - 5.0) GLOBULIN 2.9 GM/DL (2.4 - 3.2) A/G RATIO 1.6 (0.8 - 2.0) CALCIUM 9.9 MG/DL (8.4 - 10.2) TOTAL BILI 0.8 MG/DL (0.2 - 1.3) ALKALINE PHOS 72 U/L (38 - 126) SGOT/AST 14 U/L (5 - 40) SGPT/ALT 10 U/L (7 - 56) ANION GAP 10.0 mmol/L (8.0 - 16.0) AGE 30 yrs NON-AA GFR >60 mL/min AFR AMER GFR >60 mL/min Male GFR Interprentation 20-49 yrs >60 mL/min Slqsqm96-52 yrs >56 mL/min Normal 60-69 yrs >49 mL/min Normal 70-79yrs>42 mL/min Normal 80 and above >35 mL/min Normal Female GFRInterpretation 20-39 yrs >60 mL/min Normal 40-49 yrs >58 mL/minNormal 50-59 yrs >51 mL/min Normal 60-69 yrs >45 mL/min Yfqjqa85-35 yrs >39 mL/min Normal 80 and above >32 mL/min NormalLipase: (AME: 10/11/2020 11:10) ( MsgRcvd 10/11/2020 12:01) Final results Test Result Flag Units (Reference) LIPASE 18 U/L (13 - 60)Troponin-T: (AME: 10/11/2020 11:10) ( MsgRcvd 10/11/2020 11:47) Final results Test Result Flag Units (Reference) TROPONIN T <0.01 NG/ML (0.00 - 0.10) TROPONIN T0.1 ng/ml Recommended as the clinical threshold value forTroponin T.Magnesium: (AME: 10/11/2020 11:10) ( [facility] 10/11/2020 12:01) Final results Test Result Flag Units (Reference) MAGNESIUM 1.8 MG/DL (1.7 - 2.2)TSH: (AME: 10/11/2020 11:10) ( [facility] 10/11/2020 12:12) Final results Test Result Flag Units (Reference) TSH 0.55 uIU/mL (0.47 - 5.01)CRP: (AME: 10/11/2020 11:10) ( [facility] 10/11/2020 12:02) Final results 5 Clinical Report - Physicians/[facility] Emergency Department [address] [place] [address] Phone #: ext- [phone] 10/11/2020 10:27 Patient: AUGIE SINGER Sex: F : 1990 Age: 30y Test Result Flag Units (Reference) CRP-HS 11.16 H MG/L (1.00 - 3.00) CDC/S HS-CRP CUT-OFF: RELATIVE RISK: <1.0 mg/L Low 1.0 - 3.0 mg/L Average >3.0 mg/L High Optimally, the average of HS-CRP results repeated two weeks apart should be used for risk assessment. Sed. Rate: (AME: 10/11/2020 11:10) ( [facility] 10/11/2020 11:52) Final results Test Result Flag Units (Reference) SED RATE 44 H mm/hr (0 - 20) SED RATE REENTER 44 BMP: (AME: 10/11/2020 11:21) ( MsgRcvd 10/11/2020 11:23) Canceled Urinalysis: (AME: 10/11/2020 11:30) ( MsgRcvd 10/11/2020 11:52) Final results Test Result Flag Units (Reference) URINALYSIS URINALYSIS SOURCE R COLOR yellow (NORMAL: Yello CLARITY clear (NORMAL: Clear SPEC GRAVITY 1.015 (1.001 - 1.030 pH 8 (5 - 9) GLUCOSE NORM (NORMAL: Negat BILIRUBIN NEG (NORMAL: Negat KETONE 15 A (NORMAL: Negat PROTEIN NEG (NORMAL: Negat NITRITE NEG (NORMAL: Negat BLOOD NEG (NORMAL: Negat LEUK EST NEG (NORMAL: Negat UROBILINOGEN NOR (less than 1.0 MICROSCOPIC Not Indicate EKG: (AME: 10/11/2020 11:21) ( MsgRcvd 10/11/2020 14:03) In Progress.PROGRESS AND PROCEDURESCourse of Care: Enter room and pt lying peacefully in bed in NAD. Patient stable. Denies any newissues, concerns, or complaints. VSS, NAD, AOx3, interacting well and appropriately, no use of accessory muscle, able to speak full sentences, stable, non-toxic looking. Pt prsents with c/o of weakness and CP. Seen by caridologist. Has an appt with neurolgoy for eval. PE demos NV i ntact b/l UE. ? decreaed DRT b/l LE. EOMI; PERRLA. No cough. Will order labs and imaging for further eval. PEnding result. REviewed results. Radiologist calls to discuss. Indicates ? MG. This would make sense as pt had c/o 6 Clinical Report - Physicians/Mid Levels [facility] Emergency Department [address] [place] [address] Phone #: ext- [phone] 10/11/2020 10:27 Patient: AUGIE SINGER Sex: F : 1990 Age: 30y worsening weakness, decreased O2 upon laying, and indicates she ntoed a eye droop yesterday. Attempted to ambulate pt and she is able to stand, but noted increased weakness to stand and abnormal gait. Pt has a 16:53 10/11/20. [address] [facility] and no beds. 1607 Called [facility] and discussed sally Bo, pending call back. 1640: [facility] calls back and discuss. WIll call back with decision. 16:59 10/11/20. [facility] calls and indicates at capacity. Called [facility] and discussed with Betzy. COnnects me to the ER. Discuss with Dr. Parra. Sts that he will accept pt for ER. Critical care performed (90 minutes). Time includes: direct patient care, patient reassessment, coordination of patient care, interpretation of data (laboratory data), review of patient's medical records, medical consultation, family consultation regarding treatment decisions and documentation of patient care- see progress notes. Discussed case with health care provider (Darinel). Disposition: Benefits, risks and alternatives to transfer explained to patient. Transferred to [facility]. UTI (catheter associated) was not present prior to transfer. Pressure ulcer was not present prior to transfer. Vascular infection (catheter associated) was not present prior to transfer.CLINICAL IMPRESSION Acute generalized weakness. (? MYASTHENIA GRAVIS).(Electronically signed by Korina Rodriguez P.A.-C 10/12/2020 00:21) Name Value Range Interpretation Code Description Data Randa rce(s) Supporting Document(s) ID Date Data Source [id number] 10/11/2020 08:56:00 PM EDT [address] [address] RESPIRATORY CARE REPORT ==== ---------NAME------- NUMBER SEX AGE ADMIT DISC. XRAY# F/C DENISE GHOSH N [id number] F 30 10/11/20 10/11/[id number] SB4 E/R DATE OF : 1990 M/R# [id number] #: [id number] TR-07 LOCATION: EMERGENCY DEPT FORMERLY [facility], [facility] [facility] TE:10/11/20 13:56 ED [id number] PHYSICIAN: DARINEL RODRIGUEZ CH Name Value Range Interpretation Code Description Data Randa rce(s) Supporting Document(s) ID Date Data Source [id number] 10/11/2020 05:10:00 PM EDT [facility] Name Value Range Interpretation Code Description Data Randa rce(s) Supporting Document(s) COVID19 Case rprt NOT DETECTED [facility] This lab was ordered by [facility] and reported by [facility]. ID Date Data Source [id number] 10/11/2020 06:13:00 PM EDT [facility] NOT DETECTEDNOT DETECTED{ PROC EDURAL CONTROL VALID KIT LOT # [id number] 10/11/20.1812.JNL. KIT EXP DATE _12/11/20 10/11/20.1812.JNL. NORMAL RANGE IS NOT DETECTEDThe COVID-19 assay is a rapid molecular in vitro diagnostic testutilizing an isothermal nucleic acid amplification technology for thequalitative detection of nucleic acid from the SARS-CoV-2 viral RNA in directnasal or nasopharyngeal swabs. Testing should be performed within the first 7days of the onset of symptoms.NEGATIVE RESULTS SHOULD BE TREATED PRESUMPTIVE AND, IF INCONSISTENT WITHCLINICAL SIGNS AND SYMPTOMS OR NECESSARY FOR PATIENT MANAGEMENT, SHOULD BETESTED WITH DIFFERENT AUTHORIZED OR CLEARED MOLECULAR TESTS. NEGATIVE RESULTSDO NOT PRECLUDE SARS-CoV-2 INFECTION AND SHOULD NOT BE USED THE SOLE BASISFOR PATIENT MANAGEMENT DECISIONS. Name Value Range Interpretation Code Description Data Randa rce(s) Supporting Document(s) ID Date Data Source [id number] 10/11/2020 04:47:00 PM EDT [facility] [address] [place] [address] PHONE: [phone] FAX: [phone] Name .................. : MIKKI Shahid Acct Number.................. : [id number] ROOM. ................. : TR-07 MR Number ................... : [id number] Stay type ............. : E/R Discharge Date......... ... : Admit Date ......... : 09/17 08/06 Admit Phys .................... : [facility] Date of ....... : 1990 Family Phys ................... : UNKNOWN Phone .................. : [phone] Age ................................ : 30 Film# .................. .:[id number] Sex ................................. : F Unsigned transcriptions are preliminary reports and do not represent a medical or legal document CT CTA CHEST NON-CORONARY Cindy Sherman [address] COMPLETE:10/11/20 14:06 Reason(s): weakness and elevated d-dimer CT CHEST WITH IV CONTRAST INDICATION: Weakness and elevated d-dimer COMPARISON: None CONTRAST: 75 mL IsoVue 370 One or more of the following dose reduction techniques were utilized in effectively lowering the patient's radiation dose for this examination: Automated Exposure Control, Adjustment of the mA and/or kV according to patient size, or Iterative reconstruction. FINDINGS: VASCULAR: There is good visualization of the pulmonary arterial tree into the segmental branch level. No pulmonary embolic disease is identified. LUNGS: No pulmonary nodules or masses. PLEURA AND PERICARDIUM: No pleural or pericardial effusions. MEDIASTINUM AND ALEX: Increased soft tissue in the anterior mediastinum which is likely a prominent thymus. The thymus is more prominent than expected at this patient's age. No focal mass. No enlarged lymph nodes. CHEST WALL: No axillary adenopathy. SKELETAL: Skeletal structures are within normal limits. UPPER ABDOMEN: Unremarkable. IMPRESSION: 1. No pulmonary embolism. Page 1 of 2 [facility] [address] [place] [address] PHONE: [phone] FAX: [phone] Name .................. : MIKKI Shahid Acct Number.................. : [id number] ROOM. ................. : TR-07 Number ................... : [id number] Stay type ............. : E/R Discharge Date......... ... : Admit Date ......... : 10/11/20 Admit Phys .................... : YOBANYBANNER Date of ....... : 1990 Family Phys ................... : UNKNOWN Phone .................. : [phone] Age ................................ : 30 Film# .................. .:[id number] Sex ................................. : F Unsigned transcriptions are preliminary reports and do not represent a medical or legal document CT CTA CHEST NON- CORONARY Cindy Sherman [address] COMPLETE:10/11/20 14:06 Reason(s): weakness and elevated d-dimer 2. Prominent thymus without a focal mass. This suggests hyperplasia. The patient has weakness. Thymic hyperplasia can be associated with myasthenia gravis. These findings were discussed with Korina PATINO in the emergency Department at 3:15 PM Electronically Reviewed and Signed By Dami Mcrae MD , 10/11/20 16:47, JWUlices Transcribe Initials: BRANDON , Transcribe Date: 10/11/20 15:37, Dictation Date: Copy for: 010 EMERGENCY SRV Copy for: RODDY HUI via fax Copy for: EMERGENCY DEPT via modem Copy for: 710 MED REC Page 2 of 2 Name Value Range Interpretation Code Description Data Randa rce(s) Supporting Document(s) ID Date Data Source [id number] 10/11/2020 03:53:00 [place] [address] PHONE: [phone] FAX: [phone] Name .................. : MIKKI Shahid Acct Number.................. : [id number] ROOM. ................. : TR-07 MR Number ................... : [id number] Stay type ............. : E/R Discharge Date......... ... : Admit Date ......... : 09/17 08/06 Admit Phys .................... : DARINEL Date of ....... : 1990 Family Phys ................... : UNKNOWN Phone .................. : [phone] Age ................................ : 30 Film# .................. .:[id number] Sex ................................. : F Unsigned transcriptions are preliminary reports and do not represent a medical or legal document CT HEAD W/O CONTRAST 14184 COMPLETE:10/11/20 14:06 Reason(s): weakness CT BRAIN WITHOUT IV CONTRAST INDICATION: Weakness COMPARISON: 1123 1 CONTRAST: None One or more of the following dose reduction techniques were utilized in effectively lowering the radiation dose for this examination: Automated Exposure Control, Adjustment of the mA and/or kV according to patient size, or Iterative Reconstruction. FINDINGS: Ventricles and sulci are normal in appearance. Barakat white differentiation is intact. No extra-axial collection or intracranial hemorrhage. No indication of acute or prior ischemic CVA. No mass or mass effect. Calvarium and skull base are within normal limits. To the extent included sinuses are clear. IMPRESSION: Negative study. Electronically Reviewed and Signed By Dami Mcrae MD , 10/11/20 15:53, MALU Transcribe Initials: BRANDON , Transcribe Date: 10/11/20 15:33, Dictation Date: Copy for: 010 EMERGENCY SRV Copy for: RODDY HUI via fax Page 1 of 2 [facility] [address] [place] [id number] PHONE: [phone] FAX: [phone] Name .................. : MIKKI Shahid Acct Number.................. : [id number] ROOM. ................. : TR-07 MR Number ................... : [id number] Stay type ............. : E/R Discharge Date......... ... : Admit Date ......... : 10/11/20 Admit Phys .................... : DARINEL Date of ....... : 1990 Family Phys ................... : UNKNOWN Phone .................. : [phone] Age ................................ : 30 Film# .................. .:[id number] Sex ................................. : F Unsigned transcriptions are preliminary reports and do not represent a medical or legal document CT HEAD W/O CONTRAST 25953 COM PLETE:10/11/20 14:06 Reason(s): weakness Copy for: EMERGENCY DEPT via mode Copy for: 710 MED REC Page 2 of 2 Name Value Range Interpretation Code Description Data Randa rce(s) Supporting Document(s) ID Date Data Source [id number] 10/11/2020 04:16:00 PM EDT [facility] ([facility]) Name Value Range Interpretation Code Description Data Randa rce(s) Supporting Document(s) Troponin Laboratory test result [facility] ([facility]) Thyroid Stimulating Hormone 0.55 ME [facility] ([facility]) Magnesium Level 1.6 [facility] ([facility]) ID Date Data Source [id number] 10/11/2020 04:16:00 PM EDT [facility] Name Value Range Interpretation Code Description Data Randa rce(s) Supporting Document(s) Alanine aminotransferase [Enzymatic activity/volume] in Serum or Pl asma 10 [facility] ([facility]) Albumin [Mass/volume] in Serum or Plasma 4.5 [facility] ([facility]) Calcium [Mass/volume] in Serum or Plasma 9.9 [facility] ([facility]) Carbon dioxide, total [Moles/volume] in Serum or Plasma 25 [facility] ([facility]) Chloride [Moles/volume] in Serum or Plasma 105 [facility] ([facility]) Potassium [Moles/volume] in Serum or Plasma 4.0 [facility] ([facility]) Alkaline phosphatase [Enzymatic activity/volume] in Serum or Plasma 7 2 [facility] ([facility]) Sodium 140 [facility] Protein [Mass/volume] in Serum or Plasma 7.4 [facility] ([facility]) Aspartate aminotransferase [Enzymatic activity/volume] in Serum or Plasma 14 [facility] ([facility]) Urea nitrogen [Mass/volume] in Serum or Plasma 10 [facility] ([facility]) Glucose 87 70-100 [facility] Creatinine For GFR 0.6 [facility] ([facility]) ID Date Data Source [id number] 10/11/2020 04:16:00 PM EDT [facility]) Name Value Range Interpretation Code Description Data Randa rce(s) Supporting Document(s) White Blood Count 9.8 4.3-10.9 [facility]) Platelets 335 130-400 [facility] Red Blood Count 4.26 4.70-6.20 [facility] ([facility]) Hemoglobin 12.6 13.0-17.0 [facility] ([facility]) Hematocrit 37.4 39.0-50.0 [facility] ([facility]) ID Date Data Source [id number] 10/11/2020 01:29:00 PM EDT [facility] Name Value Range Interpretation Code Description Data Randa rce(s) Supporting Document(s) Fibrin D-dimer FEU [Mass/volume] in Platelet poor plasma 0.89 ug /mL 0.27 - 0.50 H [facility] ID Date Data Source [id number] 10/11/2020 11:51:00 AM EDT [facility] Name Value Range Interpretation Code Description Data Randa rce(s) Supporting Document(s) [facility] URINALYSIS SOURCE R [facility] al COLOR yellow NORMAL: Yellow [facility] ospital CLARITY clear NORMAL: Clear [facility] spital Specific gravity of Urine by Test strip 1.015 1.001 - 1.030 [facility] pH 8 5 - 9 [facility] Glucose [Mass/volume] in Urine by Test strip NORM [facility] Bilirubin.total [Presence] in Urine by Test strip NEG NORMAL: Negative [facility] Ketones [Presence] in Urine by Test strip 15 NORMAL: Negative [facility] Protein [Mass/volume] in Urine by Test strip NEG [facility]AL: [facility] Nitrite [Presence] in Urine by Test strip NEG NORMAL: Negative [facility] BLOOD NEG NORMAL: Negative [facility] LEUK EST NEG NORMAL: Negative [facility] Urobilinogen [Mass/volume] in Urine by Test strip NOR less meena n 1.0 mg/dL [facility] MICROSCOPIC Not Indicate [facility] ospital ID Date Data Source [id number] 10/11/2020 01:45:00 PM T [facility] Value Range Interpretation Code Description Data Randa rce(s) Supporting Document(s) HCG URINE QUAL NEGATIVE NORMAL: NEGATIVE [facility] HCG URINE QL REENTER NEGATIVE NORMAL: NEGATIVE [facility] { KIT LOT # [id number] ){ KIT EXP DATE 02/15/22 ){ PROCEDURAL CONTROL VALID ) ID Date Data Source [id number] 10/11/2020 12:12:00 PM EDT [facility] Name Value Range Interpretation Code Description Data Randa rce(s) Supporting Document(s) Thyrotropin [Units/volume] in Serum or Plasma by Detec tion limit <= 0.05 mIU/L 0.55 uIU/mL 0.47 - 5.01 [facility] ID Date Data Source [id number] 10/11/2020 12:02:00 PM EDT [facility] Name Value Range Interpretation Code Description Data Randa rce(s) Supporting Document(s) C reactive protein [Mass/volume] in Serum or Plasma by High sensitivity method 11.16 MG/L 1.00 - 3.00 H [facility] HS-CRP CUT-OFF: RELATIVE RISK: <1.0 mg/L Low 1.0 - 3.0 mg/L Average >3.0 mg/L High Optimally, the average of HS-CRP results repeated two weeks apart should be used for risk assessment. ID Date Data Source [id number] 10/11/2020 12:02:00 PM EDT [facility] Name Value Range Interpretation Code Description Data Randa rce(s) Supporting Document(s) COMPREHENSIVE METABOLIC PANEL [facility] COMPREHENSIVE METABOLIC PANEL Sodium [Moles/volume] in Serum or Plasma 140 mEq/L 134 - 153 [facility] Potassium [Moles/volume] in Serum or Plasma 4.0 mEq/L 3.6 - 5.0 [facility] Chloride [Moles/volume] in Serum or Plasma 105 mEq/L 98 - 107 [facility] Carbon dioxide, total [Moles/volume] in Serum or Plasma 25 MEQ/L 22 - 30 [facility] Glucose [Mass/volume] in Serum or Plasma 87 MG/DL 70 - 99 [facility] BUN 6 MG/DL 7 - [address] [facility] Creatinine [Mass/volume] in Serum or Plasma 0.6 MG/DL 0.7 - 1.5 L [facility] BUN/CREAT 10 8 - 27 [facility] al Protein [Mass/volume] in Serum or Plasma 7.4 G/DL 6.3 - 8.2 [facility] Albumin [Mass/volume] in Serum or Plasma 4.5 G/DL 3.9 - 5.0 [facility] Globulin [Mass/volume] in Serum by calculation 2.9 GM/DL 2.4 - 3.2 [facility] A/G RATIO 1.6 0.8 - 2.0 [facility] Calcium [Mass/volume] in Serum or Plasma 9.9 MG/DL 8.4 - 10.2 [facility] Bilirubin.total [Mass/volume] in Serum or Plasma 0.8 MG/DL 0.2 - 1.3 [facility] Alkaline phosphatase [Enzymatic activity/volume] in Serum or Plasma 72 U/L 38 - 126 [facility] Aspartate aminotransferase [Enzymatic activity/volume] in Serum or Plasma 14 U/L 5 - 40 [facility] Alanine aminotransferase [Enzymatic activity/volume] in Seru m or Plasma 10 U/L 7 - 56 [facility] Anion gap 3 in Serum or Plasma 10.0 mmol/L 8.0 - 16.0 [facility] AGE 30 yrs [facility] al NON-AA GFR >60 mL/min [facility] [place] [facility] AFR AMER GFR >60 mL/min [facility] sp[facility] Male GFR In terprentation 20-49 yrs >60 mL/min Normal 50-59 yrs >56 mL/min Normal 60-69 yrs >49 mL/min Normal 70-79yrs >42 mL/min Normal 80 and above >35 mL/min Normal Female GFR Interpretation 20-39 yrs >60 mL/min Normal 40-49 yrs >58 mL/min Normal 50-59 yrs >51 mL/min Normal 60-69 yrs >45 mL/min Normal 70-79 yrs >39 mL/min Normal 80 and above >32 mL/min Normal ID Date Data Source [id number] 10/11/2020 12:01:00 PM EDT [facility] Name Value Range Interpretation Code Description Data Randa rce(s) Supporting Document(s) Magnesium [Mass/volume] in Serum or Plasma 1.8 MG/DL 1.7 - 2.2 [facility] ID Date Data Source [id number] 10/11/2020 12:01:00 PM EDT [facility] Name Value Range Interpretation Code Description Data Randa rce(s) Supporting Document(s) Lipase [Enzymatic activity/volume] in Serum or Plasma 18 U/L 13 - 60 [facility] ID Date Data Source [id number] 10/11/2020 11:52:00 AM EDT [facility] Name Value Range Interpretation Code Description Data Randa rce(s) Supporting Document(s) Erythrocyte sedimentation rate by Westergren method 44 mm/hr 0 - 20 H [facility] SED RATE REENTER 44 [facility] ID Date Data Source [id number] 10/11/2020 11:47:00 AM EDT [facility] Name Value Range Interpretation Code Description Data Randa rce(s) Supporting Document(s) TROPONIN T <0.01 NG/ML 0.00 - 0.10 [facility] ospital TROPONIN T0.1 ng/ml Recommended as the c linical threshold value forTroponin T. ID Date Data Source [id number] 10/11/2020 11:31:00 AM EDT [facility] Name Value Range Interpretation Code Description Data Randa rce(s) Supporting Document(s) CBC W/AUTOMATED DIFF [facility] COMPLETE BLOOD COUNT Leukocytes [#/volume] in Blood by Automated count 9.8 10^3/uL 4.2 - 1 1.0 [facility] Erythrocytes [#/volume] in Blood by Automated count 4.26 10^6/uL 4. 20 - 5.40 [facility] Hemoglobin [Mass/volume] in Blood 12.6 g/dL 12.0 - 16.0 [facility] Hematocrit [Volume Fraction] of Blood by Automated count 37.4 % 3 7.0 - 47.0 [facility] Erythrocyte mean corpuscular volume [Entitic volume] by Auto mated count 87.8 fL 81.0 - 101 [facility] Erythrocyte mean corpuscular hemoglobin [Entitic mass] by Automated count 29.6 pg 27.0 - 34.0 [facility] Erythrocyte mean corpuscular hemoglobin concentration [Mass/volume] by Automated count 33.7 g/dL 31.0 - 36.0 [facility] Erythrocyte distribution width [Ratio] by Automated count 13.0 % 11.5 - 14.5 [facility] Platelets [#/volume] in Blood by Automated count 335 10^3/uL 150 - 45 0 [facility] Platelet mean volume [Entitic volume] in Blood by Automated count 10.8 fL 7.4 - 10.4 H [facility] Neutrophils/100 leukocytes in Blood by Automated count 81.7 % 37. 0 - 80.0 H [facility] Lymphocytes/100 leukocytes in Blood by Manual count 11.6 % 25.0 - 40.0 L [facility] Monocytes/100 leukocytes in Blood by Automated count 5.4 % 3.0 - 8.0 [facility] Eosinophils/100 leukocytes in Blood by Automated count 0.3 % 0.0 - 7.0 [facility] Basophils/100 leukocytes in Blood by Automated count 0.6 % 0.0 - 2.5 [facility] %IG 0.4 % 0.0 - 0.0 H [facility] %NRBC 0.0 % 0.0 - 0.0 [facility] al Neutrophils [#/volume] in Blood by Automated count 8.03 10^3/uL 2.00 - 6.90 H [facility] Lymphocytes [#/volume] in Blood by Automated count 1.14 10^3/uL 0.60 - 3.40 [facility] Monocytes [#/volume] in Blood by Automated count 0.53 10^3/uL 0.00 - 0.90 [facility] Eosinophils [#/volume] in Blood by Automated count 0.03 10^3/uL 0.00 - 0.70 [facility] Basophils [#/volume] in Blood by Automated count 0.06 10^3/uL 0.00 - 0.20 [facility] #IG 0.04 10^3/uL 0.00 - 0.10 [facility] #NRBC 0.00 10^3/uL 0.00 - 0.00 [facility] MANUAL DIFF NOT INDICATED [facility] RBC MORPH NOT INDICATED [facility] ID Date Data Source [id number] 10/11/2020 01:43:00 PM EDT [facility] Name Value Range Interpretation Code Description Data Randa rce(s) Supporting Document(s) BNP 42 PG/ML 0 - 125 [facility] al ID Date Data Source [id number] 10/10/2020 05:44:00 AM EDT [facility] Name Value Range Interpretation Code Description Data Randa rce(s) Supporting Document(s) SARS-CoV-2 (COVID 19) NEGATIVE - SARS-CoV-2 (COVID19) [facility] This lab was ordered by [facility] a nd reported by [facility]. ID Date Data Source [id number] 10/08/2020 02:21:00 PM EDT [facility] ([facility]) Name Value Range Interpretation Code Description Data Randa rce(s) Supporting Document(s) Thyrotropin [Units/volume] in Serum or Plasma 0.904 uIU/ML 0.358-3.74 0 [facility] ([facility]) pending Lyme Titer ID Date Data Source [id number] 10/08/2020 02:21:00 PM EDT [facility] ([facility]) Name Value Range Interpretation Code Description Data Randa rce(s) Supporting Document(s) Lyme Disease IgG/IgM Antibodie Laboratory test result 0.00-0.90 [facility] ([facility]) pending Lyme Titer Lyme Disease IgM Ab Quantitati Laboratory test result 0.00-0.79 [facility] ([facility]) pending [facility]yme Titer ID Date Data Source [id number] 10/08/2020 02:21:00 PM EDT [facility] ([facility]) Name Value Range Interpretation Code Description Data Randa rce(s) Supporting Document(s) C reactive protein [Mass/volume] in Serum or Plasma by High sensitivity method 1.49 mg/dL 0.00-0.30 [facility] ([facility]) pending Lyme Titer Erythrocyte sedimentation rate by 2H Westergren method 35 mm/hr 0-2 0 [facility] ([facility]) pending Lyme Titer ID Date Data Source [id number] 10/08/2020 02:21:00 PM EDT [facility] ([facility]) Name Value Range Interpretation Code Description Data Randa rce(s) Supporting Document(s) Glucose, Fasting 79 mg/dL 70-100 [facility] ([facility]) pending Lyme Titer Blood Urea Nitrogen 8 mg/dL 7-18 [facility] ([facility]) pending Lyme Titer Creatinine For GFR 0.76 mg/dL 0.55-1.30 [facility] ([facility]) pending [facility]yme Titer Sodium Level 138 meq/L 136-145 [facility] ([facility]) pending [facility] Titer Glomerular Filtration Rate Laboratory test result [facility] ([facility]) pending [facility]yme Titer Potassium Serum 4.1 meq/L 3.5-5.1 [facility] ([facility]) pending Lyme Titer Chloride Level 104 meq/L 98-107 [facility] ([facility]) pending Lyme Titer Anion Gap 7 meq/L 8-16 [facility] ([facility]) pending Lyme Titer Carbon Dioxide Level 27 meq/L 21-32 [facility] ([facility]) pending Lyme Titer Calcium Level 9.4 mg/dL 8.5-10.1 [facility] ([facility]) pending Lyme Titer Ast/Sgot 14 U/L 7-37 [facility] ([facility]) pending [facility]yme Titer Alt/SGPT 20 U/L 12-78 [facility] ([facility]) pending [facility] Titer Alkaline Phosphatase 76 U/L 45-117 [facility] ([facility]) pending Lyme Titer Bilirubin,Total 0.7 mg/dL 0.2-1.0 [facility] ([facility]) pending Lyme Titer Total Protein 7.7 GM/DL 6.4-8.2 [facility] ([facility]) pending [facility]yme Titer Albumin/Globulin Ratio 1.0 1.2-2.2 [facility] ([facility]) pending Lyme Titer Albumin 3.8 GM/DL 3.2-5.2 [facility] ([facility]) pending Lyme Titer ID Date Data Source [id number] 10/08/2020 02:21:00 PM EDT [facility] ([facility]) Name Value Range Interpretation Code Description Data Randa rce(s) Supporting Document(s) Creatine kinase [Enzymatic activity/volume] in Serum or Plasma 74 U /L 26-192 [facility] ([facility], [facility]) pending Lyme Titer ID Date Data Source [id number] 10/08/2020 02:21:00 PM EDT [facility] ([facility]) Name Value Range Interpretation Code Description Data Randa rce(s) Supporting Document(s) White Blood Count 11.6 10 4.0-10.0 [facility] ([facility]) pending Lyme Titer Red Blood Count 4.47 10 4.00-5.40 [facility] ([facility]) pending Lyme Titer Hemoglobin 12.8 g/dL 12.0-15.5 [facility] ([facility]) pending Lyme Titer Hematocrit 39.4 % 36.0-47.0 [facility] ([facility]) pending Lyme Titer Mean Corpuscular Volume 88.1 fl 80.0-96.0 M [facility] ([facility]) pending Lyme Titer Mean Corpuscular Hemoglobin 28.6 pg 27.0-33.0 [facility] ([facility]) pending Lyme Titer Mean Corpuscular HGB Conc 32.5 g/dL 32.0-36.5 [facility] ([facility]) pending Lyme Titer Red Cell Distribution Width 12.9 % 11.5-14.5 [facility] ([facility]) pending Lyme Titer Platelet Count, Automated 344 10 150-450 [facility] ([facility]) pending Lyme Titer Neutrophils % 77.8 % 36.0-66.0 [facility] ([facility]) pending Lyme Titer Lymph % 14.3 % 24.0-44.0 [facility] ([facility]) pending Lyme Titer Baso % 0.6 % 0.0-1.0 [facility] ([facility]) pending Lyme Titer Eos % 0.6 % 0.0-3.0 [facility] ([facility]) pending Lyme Titer Hubbard % 6.2 % 2.0-8.0 [facility] ([facility], [facility]) pending Lyme Titer Nucleated Red Blood Cell % 0.0 % 0-0 [facility] ([facility]) pending Lyme Titer Immature Granulocyte % 0.5 % 0-3.0 [facility] ([facility]) pending Lyme Titer Neutrophils # 9.1 10 1.5-8.5 [facility] ([facility]) pending Lyme Titer Lymph # 1.7 10 1.5-5.0 [facility] ([facility]) pending Lyme Titer Hubbard # 0.7 10 0.0-0.8 [facility] ([facility]) pending Lyme Titer Eos # 0.1 10 0.0-0.5 [facility] ([facility]) pending Lyme Titer Baso # 0.1 10 0.0-0.2 [facility] ([facility]) pending Lyme Titer ID Date Data Source [id number] 10/08/2020 12:00:00 AM EDT [facility] Name Value Range Interpretation Code Description Data Randa rce(s) Supporting Document(s) [facility]2 Rapid [facility]igen [facility] This lab was reported by [facility]. ID Date Data Source [id number] 03/15/2020 12:00:00 AM EST [facility] Name Value Range Interpretation Code Description Data Randa rce(s) Supporting Document(s) SARS coronavirus 2 Ag Negative [facility] This lab was ordered by [facility] and reported by [facility]. ID Date Data Source [id number] 12/07/2019 12:00:00 AM EDT [facility] Name Value Range Interpretation Code Description Data Randa rce(s) Supporting Document(s) SARS coronavirus 2 Ag [facility] This lab was ordered by [facility] and reported by [facility]. ID Date Data Source [id number] 09/27/2020 01:19:00 AM EDT [facility] [address] [place] [address] [place] [address] RESPIRATORY CARE REPORT ==== ---------NAME------- NUMBER SEX AGE ADMIT DISC. XRAY# F/C DENISE GHOSH N [id number] F 30 09/26/20 09/26/20 [id number] SB4 E/R DATE OF : 1990 M/R# [id number] #: [id number] TR-02 LOCATION: EMERGENCY DEPT EKG [id number] COMPLE TE:09/26/20 16:27 [place] [id number] PHYSICIAN: GABRIEL RODRIGUEZ CH Name Value Range Interpretation Code Description Data Randa rce(s) Supporting Document(s) ID Date Data Source [id number] 09/26/2020 02:15:00 PM EDT [facility] 1 OrderSheet [facility] Emergency Department [address] [place] [address] Phone #: ext- [phone] 09/26/2020 14:12 Patient: AUGIE SINGER Sex: F : 1990 Age: 30yWEIGHT:117.9 kg (S) HEIGHT:67 inches (S) BMI:40.7ALLERGIES: No Known Drug AllergyCHIEF COMPLAINT: dizzinessDIAGNOSIS: O/E - edema of feet, Dizziness, Hypertensive disorderLAB ORDERSOrder Description Priority Entered Acknowledged InitialedCBC w Diff STAT 14:51 09/26/2020 14:51 Korina Mayfield R.N., P.A.-C;CMP STAT 14:51 09/26/2020 14:51 Korina Mayfield.N. P.A.-C;Lipase STAT 14:51 09/26/2020 14:51 Korina Mayfield R.N. P.A.-C;PT/PTT STAT 14:51 09/26/2020 14:51 Korina Mayfield R.N. P.A.-C;Troponin-T STAT 14:51 09/26/2020 14:51 Korina Mayfield R.N. P.A.-C;Magnesium STAT 14:51 09/26/2020 14:51 Korina Mayfield R.N. P.A.-C;TSH STAT 14:51 09/26/2020 14:51 Korina Mayfield R.N. P.A.-C;Urinalysis (Clean STAT 14:51 09/26/2020 Ack'd: 14:52 14:59 Dedrick Mayfield) Eleanor Johnson R.N. P.A.-C; R.N.D-Dimer STAT 14:51 09/26/2020 14:52 Korina Mayfield R.N. P.A.-C;HCG Serum Qual STAT 14:51 09/26/2020 14:52 Korina Mayfield R.N. P.A.-C; 2 OrderSheet [facility] Emergency Department [address] [place] [address] Phone #: ext- [phone] 09/26/2020 14:12 Patient: AUGIE SINGER Sex: F : 1990 Age: 30yTroponin-T STAT 17:56 09/26/2020 17:56 Korina Mayfield R.N. P.A.-C; NOTES: 3hr repeatDIAGNOSTIC STUDY ORDERSOrder Description Priority Entered Acknowledged InitialedUS Lower Ext STAT 14:51 09/26/2020 Ack'd: 14:52 15:09 Chaparro,Venous Bilateral Eleanor Johnson R.NTiffani(Oxygen?(No)) P.A.-C; R.N. Reason for Study: L hamstring pain and R foot swelling with hx of dizzinessCT Head W/O Cont STAT 15:35 09/26/2020 Ack'd: 15:45 16:19 Chaparro,(Oxygen?(No)) Eleanor Johnson.N. P.A.-C; R.N. Reason for Study: dizzinessCT CTA CHEST STAT 15:35 09/26/2020 Ack'd: 15:45 16:19 Chaparro,(NONCOR) W CON Eleanor Johnson.N.INC PP P.A.-C; R.N.(Oxygen?(No))(IV?(Yes)) Reason for Study: dizziness with elevated d-dimerMEDICATION/IV/DRIP/FLUID ORDERSOrder Description Priority Entered Acknowledged InitialedIV NS : Bolus 500 14:51 09/26/2020 Ack'd: 14:52 Eleanor Mayfield R.N.mL, then 100 mL/hr Korina Rodriguez Cancelled: Patient Refusal 17:58 Chaparro P.A.-C; Eleanor R.NoeGENERAL ORDERSOrder Description Priority Entered Acknowledged InitialedBlood Pressure 14:51 09/26/2020 14:51 Chaparro,Monitor Koirna Vargas.N. P.A.-C;Socket Welder Helper 14:51 09/26/2020 14:51 Chaparro,(continuous) Korina MulliganN. P.A.-C;EKG 14:51 09/26/2020 Ack'd: 14:52 15:35 Korina Poe Amber Lisa RN P.A.-C; R.N.NPO 14:51 09/26/2020 14:51 Chaparro, 3 OrderSheet [facility] Emergency Department [address] [place] [address] Phone #: ext- [phone] 09/26/2020 14:12 ----- [id number] Sex[facility] F : 1990 Age: 30y Korina Hill-Lane;Obtain Old EKG 14:51 09/26/2020 14:51 Korina Mayfield R.N.ATiffani-C;Obtain Old Records 14:51 09/26/2020 14:51 Korina Mayfield R.N.ATiffani-C;Pulse oximeter 14:51 09/26/2020 14:51 Chaparro(Continuous) Korina Walker.ATiffani-Lane;Saline Lock 14:51 09/26/2020 Ack'd: 14:52 15:50 Korina Mayfield Amber Amber R.N. P.ATiffani-Lane; R.N.Vitals 14:51 09/26/2020 14:51 Korina Mayfield R.N.ATiffani-Lane;[Electronically signed by Eleanor Mayfield R.N. (19:13 09/26/2020)][Electronically signed by Korina Rodriguez P.A.-C (20:22 09/26/2020)][Electronically locked by Eleanor Mayfield R.N. (19:13 09/26/2020)] Name Value Range Interpretation Code Description Data Randa rce(s) Supporting Document(s) ID Date Data Source [id number] 09/26/2020 02:15:00 PM EDT [facility] 1 Medication Reconciliation Report [facility] Emergency Department [address] [place] [address] Phone #: ext- [phone] 09/26/2020 14:12 Patient: AUGIE SINGER Sex: F : 1990 Age: 30yWeight: 117.9 kgHeight/Length: 67 in.BMI: 40.7ALLERGIES: No Known Drug AllergyThe patient's Home Medications are listed below:THE FOLLOWING MEDICATIONS NEED TO BE RECONCILED: Pantoprazole Sodium Oral (40 mg) 1 tablet, daily Pepcid Oral (20 mg), dailyThe source(s) of the original Home Medication information:patientThe following Medications were given to the patient in the Emergency Department:None.The following Medications were prescribed to the patient:None. Name Value Range Interpretation Code Description Data Randa rce(s) Supporting Document(s) ID Date Data Source [id number] 09/26/2020 02:15:00 PM EDT [place] [address] Medication Administration Record [facility] Emergency Department [address] [place] [address] Phone #: ext- [phone] 09/26/2020 14:12 Patient: AUGIE SINGER Sex: F : 1990 Age: 30yWeight: 117.9 kgHeight/Length: 67 inBMI: 40.7ALLERGIES: No Known Drug AllergyDate/Time Medication Administered Medication Ordered Name Value Range Interpretation Code Description Data Randa rce(s) Supporting Document(s) ID Date Data Source [id number] 09/26/2020 02:15:00 PM EDT [facility] 1 General Instructions [facility] Emergency Department [address] [place] [address] Phone #: ext- [phone] 09/26/2020 14:12 Patient: AUGIE SINGER Sex: F : 1990 Age: 30yAcute dizzinessLeft pedal edema secondary to unknown cause.Essential hypertension.INSTRUCTIONSDrink plenty of fluids.(Recommend to utilize OTC Motrin and Tylenol to control inflammation and pain management.Recommend to follow the instructions on the bottle and not to exceed.).Warnings: Further evaluation is necessary.GENERAL WARNINGS: Return or contact your physician immediately if your condition worsens orchanges unexpectedly, if not improving as expected, or if other problems arise.Follow-up:Return to the emergency department as needed. Follow up with your healthcare provider in about twodays if not better. Call for an appointment.Understanding of the discharge instructions verbalized by patient. ADDITIONAL INFORMATIONDizziness (Uncertain Cause)Dizziness is a common symptom. It may be described as lightheadedness, spinning, or feeling likeyou are going to faint. Dizziness can have many causes.Tell the healthcare provider about: All medicines you take, including prescription, [id number], herbs, and supplements Any other symptoms you have Any health problems you are being treated for Any past major health problems you've had, such as a heart attack, balance issues, hearing problems, or blood pressure problems Anything that causes the dizziness to get worse or better 2 General Instructions [facility] Emergency Department [address] [place] [address] Phone #: ext- [phone] 09/26/2020 14:12 Patient: AUGIE SINGER Sex: F : 1990 Age: 30yToday's exam did not show an exact cause for your dizziness . Other tests may be needed. Follow upwith your healthcare provider.Home care Dizziness that occurs with sudden standing may be a sign of mild dehydration. Drink extra fluids for the next few days. If you recently started a new medicine, stopped a medicine, or had the dose of a current medicine changed, talk with the prescribing healthcare provider. Your medicine plan may need adjustment. If dizziness lasts more than a few seconds, sit or lie down until it passes. This may help prevent injury in case you pass out. Get up slowly when you feel better. Don't drive or use power tools or dangerous equipment until you have had no dizziness for at least 48 hours.Follow-up careFollow up with your healthcare provider for further evaluation in the next 7 days, or as advised.When to get medical adviceCall your healthcare provider for any of the following: Worsening of symptoms or new symptoms Repeated vomiting Headache Vision or hearing changesCall 911Call 911, or get medical care right away if any of these occur: Chest, arm, neck, back, or jaw pain Weakness of an arm or leg or one side of the face Blood in vomit or stool (black or red color) Shortness of breath Feeling that your heart is fluttering or beating fast or hard (palpitations) 3 General Instructions [facility] Emergency Department [address] [place] [address] Phone #: ext- [phone] 09/26/2020 14:12 Patient: AUGIE SINGER Sex: F : 1990 Age: 30y Passing out or seizure Trouble walking or speaking [phone] [employer] [place], [place] [id number]. All rights reserved. This information is not intended as asubstitute for professional medical care. Always follow your healthcare professional's instructions.High Blood Pressure, To Be Confirmed, No TreatmentYour blood pressure today was higher than normal. Sometimes anxiety, pain, or other issues cancause a short-term rise in blood pressure. It later returns to normal. Blood pressure that is high lauren time doesn't mean that you have high blood pressure (hypertension). High blood pressure is along-term (chronic) illness. But you should have your blood pressure measured again in the next fewdays to find out if it's still high.Blood pressure measurements are given as 2 numbers. Systolic blood pressure is the upper number.This is the pressure when the heart contracts. Diastolic blood pressure is the lower number. This isthe pressure when the heart relaxes between beats. You will see your blood pressure readingswritten together. For example, a person with a systolic pressure of 118 and a diastolic pressure of 78will have 118/78 written in the medical record.Blood pressure is classified as normal, raised (elevated), or stage 1 or stage 2 high blood pressure: Normal blood pressure. Systolic of less than 120 and diastolic of less than 80 (120/80). Elevated blood pressure. Systolic of 120 to 129 and diastolic less than 80. Stage 1 high blood pressure. Systolic is 130 to 139 or diastolic between 80 to 89. Stage 2 high blood pressure. Systolic is 140 or higher or the diastolic is 90 or higher.Lifestyle changes can help manage your blood pressure. These include weight loss, exercise, andquitting smoking. Have your blood pressure checked regularly to be sure it is under control.Home careTo track your blood pressure, your healthcare provider may ask you to come into the office at [address] [place] [address] Emergency Department [address] [place] [address] Phone #: ext- [phone] 09/26/2020 14:12 [id number] Sex: F : 1990 Age: 30ydifferent times and on different days. If your provider asks you to check your readings at home, askhim or her what times of the day to test and for how many days. Before you leave the office, ask yourprovider to show you how to take your blood pressure. Ask questions if you don't understandsomething.Using a home blood pressure monitorThink about buying an automatic blood pressure monitor. A sk your provider for a recommendation aswell as the correct size cuff to fit your arm. You can buy blood pressure monitors at most pharmacies.The [employer] advises the following guidelines for home blood pressure monitoring: Don't smoke or drink coffee or other caffeinated drinks for 30 minutes before taking your blood pressure. Go to the bathroom before the test. Relax for 5 minutes before taking the measurement. Sit with your back supported (don't sit on a couch or soft chair). Keep your feet on the floor uncrossed. Place your arm on a solid flat surface (like a table) with the upper part of the arm at heart level. Place the middle of the cuff directly above the bend of the elbow. Check the monitor's instruction manual for an illustration. Take multiple readings. When you measure, take 2 to 3 readings one minute apart. Record all of the results. Take your blood pressure at the same time every day, or as your provider advises. Record the date, time, and blood pressure reading. Take the record with you to your next medical appointment. If your blood pressure monitor has a built-in memory, simply take the monitor with you to your next appointment. Call your provider if you have several high readings. Don't be frightened by a single high blood pressure reading. But if you get a few high readings, check in with your provider.Follow-up careKeep all of your follow-up appointments. If your blood pressure is more than 120 over 80 on 2 out of 3days, you will need to follow up with your healthcare provider for more evaluation and treatment.Don't put this off! High blood pressure can be treated. High blood pressure that's not treated raisesyour risk for heart attack, heart failure, kidney disease, and stroke.Call 911 5 General [facility] Emergency Department [address] [place] [address] Phone #: ext- [phone] 09/26/2020 14:12 [id number] Sex: F : 1990 Age: 30yCall 911 if you have any of these: Blood pressure of 180/120 or higher Chest pain or shortness of breath Weakness of an arm or leg or one side of the face Problems speaking or seeingWhen to get medical adviceCall your healthcare provider right away if any of these occur: Severe headache Throbbing or rushing sound in the ears Nosebleed Sudden severe pain in your belly (abdomen) Extreme drowsiness, confusion, or fainting Dizziness or dizziness with spinning feeling (vertigo) [id number] [employer]. [address] [place] [address]. All rights reserved. This information is not intended as asubstitute for professional medical care. Always follow your healthcare professional's instructions.Leg Swelling in a Single LegSwelling of the arms, feet, ankles, and legs is called edema. It is caused by extra fluid collecting in thetissues. Because of gravity, extra fluid in the body settles to the lowest part. That is why the legs andfeet are most affected. You have swelling in a single leg.Some of the causes for swelling in only one leg include: Infection in the foot or leg Muscle strain or tear in the affected leg Blockage of the leg's lymphatic system A Rosales's cyst (located behind the knee) Long-term problem with a vein not working well (venous insufficiency) Swollen, twisted vein in the leg (varicose veins) Insect bite or sting on the foot or leg 6 General Instructions [facility] Emergency Department [address] [place] [address] Phone #: ext- [phone] 09/26/2020 14:12 Patient: AUGIE SINGER Sex: F : 1990 Age: 30y Injury or recent surgery on the foot or leg Blood clot in a deep vein of the leg (deep vein thrombosis or DVT) Inflammation of the joints of the lower legMedical treatment will depend on what is causing your swelling.Home careFollow these guidelines when caring for yourself at home: Don't wear tight clothing. Keep your legs up while lying or sitting. Take any med icines as directed. If infection, injury, or recent surgery is the cause of your swelling, stay off your legs as much as possible until your symptoms get better. If you have venous insufficiency or varicose veins, don't sit or supply chain consultant one place for long periods of time. Take breaks and walk around every few hours. Talk with your healthcare provider about wearing support stockings to help reduce swelling during the day. Wear compression stockings with your provider's approvalFollow-up careFollow up with your healthcare provider as advised.Call 911Call 911 if any of these occur: Shortness of breath or trouble breathing Chest pain Coughing up blood Fainting or loss of consciousnessWhen to seek medical adviceCall your healthcare provider right away if any of these occur: Increased pain, swelling, warmth, or redness of the leg, ankle, or foot 7 General Instructions [facility] Emergency Department [address] [place] [address] Phone #: ext- [phone] 09/26/2020 14:12 Patient: AUGIE SINGER Sex: F : 1990 Age: 30y Fever of 100.4F (38C) or higher, or as directed by your provider Weakness or dizziness Shaking chills Drenching sweats [id number] [employer]. [address] [place] [address]. All rights reserved. This information is not intended as asubstitute for professional medical care. Always follow your healthcare professional's instructions. You have been given the following additional information: Dizziness, Uncertain Cause Hypertension, To Be Confirmed Leg Swelling in a Single Leg(Electronically signed by Korina Rodriguez P.A.-C 09/26/2020 20:22) Name Value Range Interpretation Code Description Data Randa rce(s) Supporting Document(s) ID Date Data Source [id number] 09/26/2020 02:15:00 PM EDT [facility] 1 Clinical Report - Nurses [facility] Emergency Department [address] [place] [address] Phone #: ext- [phone] 09/26/2020 14:12 Patient: AUGIE SINGER Sex: F : 1990 Age: 30yTRIAGEArrived by private vehicle. Historian: patient. Unaccompanied.Triage time: 14:14 09/26/2020.Chief Complaint: RIGHT LOWER EXTREMITY SWELLING, NUMBNESS and TINGLING.Alert. No acute distress.This started just prior to arrival. Onset. (30 minutes ago). ( Pt was driving her car and started feelingtingling in her right leg and numbness. She noticed swelling in her foot as well. Pt called the nurse dolores Dickinson and was advised to come to the ER.).SEPSIS SCREEN: SIRS SCREEN NEGATIVE. SEPSIS SCREEN NEGATIVE. No suspected or confirmedsigns of infection present.LEN COMA SCORE: 15- eyes open- spontaneous (4); best verbal response- oriented (5); bestmotor response- obeys commands (6). --14:09/26/20 Eleanor Mayfield R.N.14:14 09/26/20. BP: 182/105. MAP: 130. HR: 77. RR: 16. O2 saturation: 100% on room air. Temp: 99.3 F(oral). Pain level now: 0/10. --14:20 09/26/20 Eleanor Mayfield R.N.Acuity: LEVEL 3. --19:13 09/26/20 Eleanor Mayfield R.N.Weight: 117.9 kg stated. Height/Length: 67 inches Per Patient. BMI: 40.7. --14:19 09/26/20 Eleanor Mayfield R.N.MedicationsPantoprazole Sodium Oral (Tablet Delayed Release 40 mg) 1 tablet, daily. Pepcid Oral (Tablet 20 mg), daily. --14:09/26/20 Eleanor Mayfield R.N.AllergiesNo Known Drug Allergy. --14:09/26/20 Eleanor Mayfield R.N.P ROBLEMS:Concussion.Contusion.Bronchitis.Atypical Chest Pain.Back Pain.Heart Murmur.Myofascial Strain. 2 Clinical Report - Nurses [facility] Emergency Department [address] [place] [address] Phone #: ext- [phone] 09/26/2020 14:12 --- Patient: AUGIE SINGER Sex: F : 1990 Age: 30y Gastroenteritis. Gastroesophageal Reflux Disease. --14:09/26/20 Eleanor Mayfield R.N. Medication/allergy information source: the patient. --14:09/26/20 Eleanor Mayfield R.N. ADDITIONAL SURGERIES: Endoscopy. --14:09/26/20 Eleanor Mayfield R.N. History PAST MEDICAL HX: Tetanus status: up-to-date. Last normal menstrual period- August 31. SOCIAL HX: Never smoker. No alcohol use or drug use. The patient was offered HIV testing but declined. Patient education was provided. The patient was offered hepatitis C testing but declined. Patient education was provided. The patient has not traveled outside the [place] Infectious disease exposure: No infectious disease exposure. (COVID screen negative, pt received her 1s dose for for COVID). Patient is not a known carrier of tuberculosis, hepatitis, HIV, MRSA or VRE. Patient is not a known carrier of CRE. SELF HARM ASSESSMENT: Self harm assessment was performed. The patient answered "no" to the question(s) "Do you have thoughts of harming or killing yourself?", "Do you have a plan for harming or killing yourself?" and "Have you recently had thoughts about harming or killing others?". ABUSE ASSESSMENT: Abuse assessment. The patient had positive responses to the question(s) "Do you feel safe in your home?" (yes). Abuse denied. No suspicion of abuse. No report of abuse. NUTRITIONAL RISK ASSESSMENT: The nutritional risk assessment revealed no deficiencies. FUNCTIONAL ASSESSMENT: Functional assessment: no impairments noted. LEARNING NEEDS ASSESSMENT: The learning needs assessment revealed no barriers. FALL RISK ASSESSMENT: Fall risk assessment completed. No risk factors identified. SKIN INTEGRITY ASSESSMENT: Skin integrity risk assessment completed. No skin integrity risk identified. --14:20 09/26/20 Eleanor Mayfield R.N.PHYSICAL ASSESSMENTAmbulatory to room.GENERAL / NEURO / PSYCH: Oriented X 4. Alert. Appears in no acute distress.EXTREMITIES: Extremity pulses are within normal l imits. Extremities exhibit normal ROM.Neuro-vascular status intact to the extremity. No lower extremity edema. Normal gait.SKIN: Skin intact. Skin is warm and dry. --14:25 09/26/20 Eleanor Mayfield R.N.NURSING PROGRESS NOTESPatient gowned. Reassurance given. Three patient identifiers checked. Call light placed in reach. Side 3 Clinical Report - Nurses [facility] Emergency Department [address] [place] [address] Phone #: ext- [phone] 09/26/2020 14:12 ---- Patient: AUGIE SINGER Sex: F : 1990 Age: 30yrails up x 2. Bed placed in lowest position. Brakes of bed on. Patient ready for evaluation- ED physiciannotified. --14:22 09/26/20 Eleanor Mayfield R.N.( Pt refusing saline lock at this time PA aware). --14:56 09/26/20 Eleanor Mayfield R.N.15:07 09/26/20. BP: 182/105. MAP: 130. HR: 123. O2 saturation: 99%. --15:08 09/26/20 Dario Campos time: (late entry - 15:30 09/26/2020). EKG was performed by dasha fink and shown to the ED physician.--15:33 09/26/20 [facility] Mdvr5xztc entry - 15:30 09/26/20. Monitoring of patient in place. Patient gowned. Reassurance given.Rounding: Position: states comfortable. Proximity of possessions / care items: call light within easy reach.Set expectations: advised patient of rounding protocol timing and asked if they needed anything else at thistime. The patient is calm and resting quietly. Patient waiting for lab and CT results. --16:00 09/26/20Eleanor Mayfield RMary15:40 09/26/2020 Site #1 started via IV in the right antecubital space with an 20g angiocath; one attempt.Saline lock flushed with 5 mL saline. --15:40 09/26/20 Suellen Poe RN16:01 09/26/20. BP: 153/108. MAP: 123. HR: 87. RR: 15. O2 saturation: 99%. --16:01 09/26/20 Mara Campos6:58 09/26/20. HR: 69. RR: 19. O2 saturation: 98%. --16:58 09/26/20 [facility] Eijr492:00 09/26/20. BP: 147/95. --17:00 09/26/20 [facility] Glbk5mpvm entry - 16:40 09/26/20. Monitoring of patient in place. Patient gowned. Reassurance given.Rounding: Position: states comfortable. Proximity of possessions / care items: call light within easy reach.Set expectations: advised patient of rounding protocol timing and asked if they needed anything else at thistime. The patient is calm and resting quietly. Call light placed in reach. Side rails up x 2. Patientwaiting for CT results. --17:15 09/26/20 Eleanor Mayfield R.N.17:59 09/26/20. BP: 146/109. HR: 76. RR: 23. O2 saturation: 99%. --17:59 09/26/20 [facility] Janr5Potsnlx gowned. Reassurance given.Rounding: Position: states comfortable. Proximity of possessions / care items: call light within easy reach.Set expectations: advised patient of rounding protocol timing and asked if they needed anything else at thistime. The patient is calm and resting quietly. Patient waiting for lab results. --18:24 09/26/20 Eleanor Mayfield R.N. 4 Clinical Report - Nurses [facility] Emergency Department [address] [place] [address] Phone #: ext- [phone] 09/26/2020 14:12 Patient: AUGIE SINGER Sex: F : 1990 Age: 30y 19:09 09/26/2020 Site #1 removed upon discharge. Catheter intact. Bandage applied. --19:11 09/26/20 Eleanor Mayfield R.N.DISPOSITION / DISCHARGE 19:02 0 09/26/20. BP: 143/86. HR: 78. RR: 16. O2 saturation: 98%. Temp: 98.1 F. Pain level now 0/10. --19:03 09/26/20 [facility][note 3] Tech, [facility] Tech[facility] Len Coma Scale: 15- eyes open- spontaneous (4); best verbal response- oriented (5); best motor response- obeys commands (6). Departure time: late entry - 19:09 09/26/2020. Condition at departure: improved and stable. No learning barriers present. Reviewed warnings. Reviewed referral to a primary care physician for followup. Patient verbalized understanding. Written instructions provided in Belgian. The patient was discharged by the physician. She was discharged home and unaccompanied at time of discharge. She left ambulatory and via private vehicle. Patient driving. --19:12 09/26/20 Eleanor Mayfield R.N.Locked/Released at 09/26/2020 19:13 by Eleanor Mayfield R.N. Name Value Range Interpretation Code Description Data Randa rce(s) Supporting Document(s) ID Date Data Source [id number] 09/26/2020 02:15:00 PM EDT [facility] 1 Clinical Report - Physicians/Mid Levels [facility] Emergency Department [address] [place] [address] Phone #: ext- [phone] 09/26/2020 14:12 Patient: AUGIE SINGER Sex: F : 1990 Age: 30y Time Seen: 14:48 09/26/2020; initial patient contact, initial documentation. Arrived- By private vehicle. Historian- patient. Disposition decision: 19:01 09/26/2020.HISTORY OF PRESENT ILLNESS Chief Complaint: DIZZINESS. This started today and is now gone. Described as a sense of rotation and feeling off balance and weak all over. Not described as a sense of movement, falling or confusion or feeling light-headed or faint. No nausea, hearing loss, tinnitus or ear pain. (Pt sts that she had a brief episode of dizziness and then noted swelling and pain of the R foot. Called nurse help line and infomred to come to the ER eval; ? blood clots. pt sts a strong FHx of clots. No current CP or SOB. Sts that dizziness and edema have resolved.). Similar symptoms previously. None. Recent medical care: Not recently seen/assessed.REVIEW OF SYSTEMSNo headache, double vision, weakness, fainting episodes or head injury. No chest pain, palpitations,black stools, numbness or bloody stools. No fever, sore throat, cough, difficulty breathing or abdominalpain. No diarrhea, skin rash, enlarged lymph nodes or joint pain. All other systems reviewed and arenegative.PAST HISTORYSee nurses notes. Problems: Concussion. Contusion. Bronchitis. Atypical Chest Pain. Back Pain. Heart Murmur. Myofascial Strain. Gastroenteritis. Gastroesophageal Reflux Disease. Additional Surgeries: Endoscopy. Medications: Pantoprazole Sodium Oral (Tablet Delayed Release 40 mg) 1 tablet, daily. 2 Clinical Report - Physicians/Mid Levels [facility] Emergency Department [address] [place] [address] Phone #: ext- [phone] 09/26/2020 14:12 Patient: AUGIE SINGER Sex: F : 1990 Age: 30y Pepcid Oral (Tablet 20 mg), daily. Allergies: No Known Drug Allergy.SOCIAL HISTORYNever smoker. No alcohol use or drug use.ADDITIONAL NOTESThe nursing notes have been reviewed.PHYSICAL EXAMVital Signs: 09/26/2020 14:14 BP: 182/105. MAP: 130. HR: 77. RR: 16. O2 saturation: 100% on room air.Temp: 99.3 F. Pain level now: 0/10. Have been reviewed. Oxygen saturation normal.Appearance: Alert. No acute distress.Eyes: Eyelids appear normal to inspection. Conjunctivae and sclerae appear normal to inspection.Corneas appear normal to inspection. Pupils equal, round and reactive to light and light. EOMs intact.Periorbital areas appear normal to inspection. Anterior chambers clear.ENT: Normal ENT inspection. Airway intact. TM's normal. Ears normal. Nose normal. Nares normal.Pharynx normal. Moist mucous membranes. Uvula midline. Voice normal.Neck: Normal inspection. Neck supple.CVS: Normal heart rate and rhythm. No JVD present. Pulses normal. Capillary refill normal. Strongperipheral pulses. Heart sounds normal. Pulses: right radial 2+; left radial 2+; right dorsalis pedis 2+; leftdorsalis pedis 2+; right posterior tibial 2+; left posterior tibial 2+.Respiratory: Chest normal on inspection. No respiratory distress. Unlabored respirations. Lungs clear.Good chest movement. Breath sounds normal and equal.Abdomen: Normal inspection. Soft and nontender. Bowel sounds normal. No distention.Skin: Skin warm and dry.Extremities: Extremities exhibit normal ROM. No lower extremity edema. No calf tenderness. No lowerextremity edema.Neuro: Awake. Alert. Oriented X 3. Mood/affect normal. Speech normal. Cranial nerves II throughXII intact and normal (as tested). No cerebellar findings. No abnormal finger-nose test. No motordeficit. Moves all extremities. No sensory deficit. Reflexes normal. Reflex exam: right triceps 2+, lefttriceps 2+, right biceps 2+, right brachioradialis 2+ and left brachioradialis 2+.Psych: Cognition normal. Thought process and content normal. Insight and judgement normal.LABS, X-RAYS, AND EKGEKG: Normal sinus rhythm. Rate: 73. NSR w/ sinus arrhythmia; minimal voltage critera for LVH, may benormal variant; borderline ECG. Discussed and reviewed with/by attending. Compared to previous. CT Head: (Thor ho James - 09/26/2020 4:41:30 PM NEG). The study was interpreted by the radiologist. 3 Clinical Report - Physicians/Mid Levels [facility] Emergency Department [address] [place] [address] Phone #: ext- [phone] 09/26/2020 14:12 Patient: AUGIE SINGER Sex: F : 1990 Age: 30yCTA Pulmonary Arteries: arcadioThor bazanDami - 09/26/2020 4:56:32 PMneg.Lower Extremity Sonography: Negative exam on the right and left side. clementinaThor fregosoDami -09/26/2020 3:34:35 PMNEG. The study w as interpreted by the radiologist.Laboratory Tests:Troponin-T: (AME: 09/26/2020 18:25) ( MsgRcvd 09/26/2020 18:57) Final results Test Result Flag Units (Reference) TROPONIN T <0.01 NG/ML (0.00 - 0.10) TROPONIN T0.1 ng/ml Recommended as the clinical threshold value forTroponin T.CT Head W/O Cont: (AME: 09/26/2020 15:35) ( MsgRcvd 09/26/2020 19:00) In ProgressCT HEAD W/O CONTRASTReason(s): dizzinessTRANSPORTATION: WC IV? O2? Oxygen?(No) Room: ED Exam CT HEAD W/O CONTRAST [facility] [address] [place] [address] PHONE: [phone] FAX: [phone] Name .................. : MIKKI Shahid Acct Number.................. : [id number] ROOM. ................. : TR-02 MR Number ................... : [id number] Stay type ............. : E/R Discharge Date......... ... : Admit Date ......... : 09/26/20 Admit Phys .................... : GABRIEL WILSON Date of ....... : 1990 Family Phys ................... : UNKNOWN Phone .................. : [phone] Age ................................ : 30 Film# .................. .:[id number] Sex ................................. : F Unsigned transcriptions are preliminary reports and do not represent a medical or legal document CT HEAD W/O CONTRAST [id number] COMPLETE:09/26/20 16:27 KBO [id number] Reason(s): dizziness CT BRAIN WITHOUT IV CONTRAST INDICATION: Dizziness COMPARISON: 05/01/2018 CONTRAST: None One or more of the following dose reduction techniques were utilized in effectively lowering the radiation dose for this examination: Automated Exposure Control, Adjustment of the mA and/or kV according to patient size, or Iterative Reconstruction. FINDINGS: Ventricles and sulci are normal in appearance. Barakat white differentiation is intact. No extra-axial collection or intracranial hemorrhage. No indication of acute or prior ischemic CVA. No mass or mass effect. 4 Clinical Report - Physicians/Mid Levels [facility] Emergency Department [address] [place] [address] Phone #: ext- [phone] 09/26/2020 14:12 Patient: AUGIE SINGER Sex: F : 1990 Age: 30y Calvarium and skull base are within normal limits. To the extent included sinuses are clear. IMPRESSION: Negative study. Electronically Reviewed and Signed By DCTNAME , SIGNDATEMALU Transcribe Initials: BRANDON , Transcribe Date: 09/26/20 18:59, Dictation Date: <<REPDIST>> Page 1 of 1CT CTA CHEST NON-CORONARY W CON INC PP: (AME: 09/26/2020 15:35) ( NhgRcvd 09/26/2020 16:27) InProgressCT CTA CHEST NON-CORONARY W CON INC PPReason(s): dizziness with elevated d-dimerTRANSPORTATION: WC IV? IV?(Yes) O2? Oxygen?(No) RoCBC w Diff: (AME: 09/26/2020 14:58) ( MsgRcvd 09/26/2020 15:05) Final results Test Result Flag Units (Reference) CBC W/AUTOMATED DIFF COMPLETE BLOOD COUNT WBC 12.1 H 10/uL (4.2 - 11.0) RBC 4.63 10/uL (4.20 - 5.40) HEMOGLOBIN 13.7 g/dL (12.0 - 16.0) HEMATOCRIT 40.3 % (37.0 - 47.0) MCV 87.0 fL (81.0 - 101) MCH 29.6 pg (27.0 - 34.0) MCHC 34.0 g/dL (31.0 - 36.0) RDW 12.9 % (11.5 - 14.5) PLATELETS 275 10/uL (150 - 450) MPV 10.7 H fL (7.4 - 10.4) NEUT 77.1 % (37.0 - 80.0) LYMPH 14.6 L % (25.0 - 40.0) MONO 6.2 % (3.0 - 8.0) EOS 1.3 % (0.0 - 7.0) BASO 0.5 % (0.0 - 2.5) %IG 0.3 H % (0.0 - 0.0) %NRBC 0.0 % (0.0 - 0.0) #NEUT 9.29 H 10/uL (2.00 - 6.90) #LYMPH 1.76 10/uL (0.60 - 3.40) #MONO 0.75 10/uL (0.00 - 0.90) #EOS 0.16 10/uL (0.00 - 0.70) #BASO 0.06 10/uL (0.00 - 0.20) #IG 0.04 10/uL (0.00 - 0.10) #NRBC 0.00 10/uL (0.00 - 0.00) MANUAL DIFF NOT INDICATED RBC MORPH NOT INDICATEDCMP: (AME: 09/26/2020 14:58) ( MsgRcvd 09/26/2020 15:23) Final results 5 Clinical Report - Physicians/Mid Levels [facility] Emergency Department [address] [place] [address] Phone #: ext- [phone] 09/26/2020 14:12 [id number] Sex: F : 1990 Age: 30y Test Result Flag Units (Reference) COMPREHENSIVE METABOLIC PANEL COMPREHENSIVE METABOLIC PANEL SODIUM 135 mEq/L (134 - 153) POTASSIUM 3.8 mEq/L (3.6 - 5.0) CHLORIDE 102 mEq/L (98 - 107) CO2 23 MEQ/L (22 - 30) GLUCOSE 88 MG/DL (70 - 99) BUN 6 L MG/DL (7 - 21) CREATININE 0.6 L MG/DL (0.7 - 1.5) BUN/CREAT 10 (8 - 27) TOTAL PROTEIN 7.2 G/DL (6.3 - 8.2) ALBUMIN 3.7 L G/DL (3.9 - 5.0) GLOBULIN 3.5 H GM/DL (2.4 - 3.2) A/G RATIO 1.1 (0.8 - 2.0) CALCIUM 9.2 MG/DL (8.4 - 10.2) TOTAL BILI <0.7 MG/DL (0.2 - 1.3) ALKALINE PHOS 72 U/L (38 - 126) SGOT/AST 15 U/L (5 - 40) SGPT/ALT 10 U/L (7 - 56) ANION GAP 10.0 mmol/L (8.0 - 16.0) AGE 30 yrs NON-AA GFR >60 mL/min AFR AMER GFR >60 mL/min Male GFR Interprentation 20-49 yrs >60 mL/min Dcfkvl27-01 yrs >56 mL/min Normal 60-69 yrs >49 mL/min Normal 70-79yrs>42 mL/min Normal 80 and above >35 mL/min Normal Female GFRInterpretation 20-39 yrs >60 mL/min Normal 40-49 yrs >58 mL/minNormal 50-59 yrs >51 mL/min Normal 60-69 yrs >45 mL/min Biuuvw66-28 yrs >39 mL/min Normal 80 and above >32 mL/min NormalLipase: (AME: 09/26/2020 14:58) ( MsgRcvd 09/26/2020 15:23) Final results Test Result Flag Units (Reference) LIPASE 22 U/L (13 - 60)PT/PTT: (AME: 09/26/2020 14:58) ( [facility] 09/26/2020 15:21) Final results Test Result Flag Units (Reference) PROTIME 12.9 SECONDS (11.0 - 15.5) INR 0.96 (0.93 - 1.23) PTT 41.1 H SECONDS (24.8 - 36.7) \\BLDo\\INR INTERPRETATION\\BLDx\\ Therapeutic range for Coumadin andrelated oral anticoagulants. -International Normalized Ratio (INR): 2.0 - 3.0 for VenousThrombosis, Pulmonary Embolus, Tissue heart valves, Acute AL Atrial Fibrillation, Valvular heart diseaseand recurrent Systemic Embolism. - International Normalized Ratio (INR): 2.5 - 3.5 forMechanical Prosthetic valve.Troponin-T: (AME: 09/26/2020 14:58) ( [facility] 09/26/2020 15:27) Final results Test Result Flag Units (Reference) TROPONIN T <0.01 NG/ML (0.00 - 0.10) TROPONIN T0.1 ng/ml Recommended as the clinical threshold value forTroponin T.Magnesium: (AME: 09/26/2020 14:58) ( [facility] 09/26/2020 15:24) Final results Test Result Flag Units (Reference) MAGNESIUM 1.9 MG/DL (1.7 - 2.2) 6 Clinical Report - Brendan sicians/Mid Levels [facility] Emergency Department [address] [place] [address] Phone #: ext- [phone] 09/26/2020 14:12 [id number] Sex: F : 1990 Age: 30yTSH: (AME: 09/26/2020 14:58) ( NhgRcvd 09/26/2020 15:34) Final results Test Result Flag Units (Reference) TSH 0.83 uIU/mL (0.47 - 5.01)Urinalysis: (AME: 09/26/2020 14:55) ( MsgRcvd 09/26/2020 15:21) Final results Test Result Flag Units (Reference) URINALYSIS URINALYSIS SOURCE R COLOR yellow (NORMAL: Yello CLARITY clear (NORMAL: Clear SPEC GRAVITY 1.010 (1.001 - 1.030 pH 6.5 (5 - 9) GLUCOSE NORM (NORMAL: Negat BILIRUBIN NEG (NORMAL: Negat KETONE NEG (NORMAL: Negat PROTEIN NEG (NORMAL: Negat NITRITE NEG (NORMAL: Negat BLOOD NEG (NORMAL: Negat LEUK EST NEG (NORMAL: Negat UROBILINOGEN NOR (less than 1.0 MICROSCOPIC Not IndicateD-Dimer: (AME: 09/26/2020 14:58) ( NhgRcvd 09/26/2020 15:21) Final results Test Result Flag Units (Reference) D-DIMER QUANT 1.34 H ug/mL (0.27 - 0.50)Beta-HCG, Qual Serum: (AME: 09/26/2020 14:58) ( MsgRcvd 09/26/2020 15:17) Final results Test Result Flag Units (Reference) HCG SERUM QUAL NEGATIVE (NORMAL: NEGAT HCG SERUM QL REENTER NEGATIVE (NORMAL: NEGAT { KIT LOT # [id number] ){ KIT EXP DATE02/15/22 ){ PROCEDURAL CONTROL VALID)US Lower Ext Venous Bilateral: (AME: 09/26/2020 14:51) ( MsgRcvd 09/26/2020 18:46) In ProgressUS DOPPLER VENOUS BILAT LEGReason(s): L hamstring pain and R foot swelling with hx of dizzinessTRANSPORTATION: WC IV? O2? Oxygen?(No) Room: ED Exam US [place] [address] PHONE: [phone] FAX: [phone] Name .................. : MIKKI Shahid Acct Number.................. : [id number] ROOM. ................. : TR-02 MR Number ................ ... : [id number] Stay type ............. : E/R Discharge Date......... ... : Admit Date ......... : 09/26/20 Admit Phys .................... : GABRIEL WILSON Date of ....... : 1990 Family Phys ................... : UNKNOWN Phone .................. : [phone] Age ................................ : 30 Film# .................. .:[id number] Sex ................................. : F 7 Clinical Report - Physicians/Mid Levels [facility] Emergency Department [address] [place] [address] Phone #: [phone] 09/26/2020 14:12 Patient: AUGIE SINGER Sex: F : 1990 Age: 30y Unsigned transcriptions are preliminary reports and do not represent a medical or legal document DOPPLER VENOUS BILAT LEG 86498 COMPLETE:09/26/20 15:59 KNB 45203 Reason(s): L hamstring pain and R foot swelling with hx of dizziness ULTRASOUND BILATERAL LOWER EXTREMITY VENOUS INDICATION: Right foot swelling, left leg pain, rule out DVT COMPARISON: None Duplex imaging with color flow Doppler and spectral analysis was used to study the deep venous system from common femoral veins through the calves. A combination of compressibility and flow augmentation was utilized to assess patency. FINDINGS: RIGHT LEG The examination shows no deep venous thrombosis. Patent common femoral, femoral, and popliteal veins. Patent posterior tibial trunk and posterior tibial vein. Patent greater saphenous. Spontaneous flow and/or compressibility is noted. LEFT LEG The examination shows no deep venous thrombosis. Patent common femoral, femoral, and popliteal veins. Patent posterior tibial trunk and posterior tibial vein. Patent greater saphenous. Spontaneous flow and/or compressibility is noted. IMPRESSION: No deep venous thrombosis. Electronically Reviewed and Signed By DCTNAME , SIGNDATE, JWS Transcribe Initials: BRANDON , Transcribe Date: 09/26/20 18:45, Dictation Date: <<REPDIST>> Page 1 of 1.PROGRESS AND PROCEDURESCourse of Care: Enter room and pt lying peacefully in bed in NAD. Patient stable. Denies any newissues, concerns, or complaints. VSS, NAD, AOx3, interacting well and appropriately, no use of accessory muscle, able to speak full sentences, stable, non-toxic looking. Pt presents to the ER with c/o dizziness and then noting edeam of the R foot. Sts that dizziness and edema had resovlved, but nurse hotline said to get evaluated. Denies any CP, SOB, dyspnea or palps. 8 Clinical Report - Physicians/Mid Levels [facility] Emergency Department [address] [place] [address] Phone #: ext- [phone] 09/26/2020 14:12 Patient: AUGIE SINGER Sex: F : 1990 Age: 30y PE demos NV intact b/l UE and LE. No neuro deficits noted. No LE edeam. Will obtian labs and imiang for furhter eval. pending resutls. Nurse informed me that pt declined IV/saline lock. Enter room and disucss with pt and will hold. Infomred of possible need for CTA. Expresses understanding. Reviewed results and noted elevated D-Dimer; will order imaging. discussed with pt and expresses she understands and agrees. 17:36 09/26/20. Reviewed results. Enter room and patient lying peacefully in bed in NAD. Patient stable. Denies any new issues, concerns, or complaints. Pending repeat troponin. Reviewed results. Discussed with attending. Agrees wiht discharge. Enter room and patient lying peacefully in bed in NAD. Patient stable. Denies any new issues, concerns, or complaints. Discussed results with pt. Discussed tx plan with pt. Discussed and counseled on stable condition. Discussed importance of a f/u with PCP. Discussed return to ER criteria. Answered their questions. Indicates and verbalizes that they understand, agree, and will comply with above. Denies any new questions or concerns. Patient has capacity to understand. Discharge decision based on the following: patient's condition is stable; patient's exam is stable; social support is adequate; transportation is available; follow-up is available. Discussed of OTC Motrin and Tylenol to control inflammation and pain management. Informed to follow directions on bottle that are appropriate for age and/or weight. Discussed case with health care provider (Gabriel). Disposition: Discharged home in good and improved condition. Condition: good and stable.CLINICAL IMPRESSION Acute dizziness Left pedal edema secondary to unknown cause. Essential hypertension.INSTRUCTIONS Drink plenty of fluids. 9 Clinical Report - Physicians/Mid Levels [facility] Emergency Department [address] [place] [address] Phone #: ext- [phone] 09/26/2020 14:12 Patient: AUGIE SINGER Sex: F : 1990 Age: 30y (Recommend to utilize OTC Motrin and Tylenol to control inflammation and pain management. Recommend to follow the instructions on the bottle and not to exceed.). Warnings: Further evaluation is necessary. GENERAL WARNINGS: Return or contact your physician immediately if your condition worsens or changes unexpectedly, if not improving as expected, or if other problems arise. Follow- up: Return to the emergency department as needed. Follow up with your healthcare provider in about two days if not better. Call for an appointment. Understanding of the discharge instructions verbalized by patient.(Electronically signed by Korina Rodriguez P.A.-C 09/26/2020 20:22) Name Value Range Interpretation Code Description Data Randa rce(s) Supporting Document(s) ID Date Data Source [id number] 09/26/2020 07:25:00 [place] [address] PHONE: [phone] FAX: [phone] Name .................. : MIKKI Shahid Acct Number.................. : [id number] ROOM. ................. : TR MR Number ................... : [id number] Stay type ............. : E/R Discharge Date......... ... : Admit Date ......... : 09/16 03/08 Admit Phys .................... : GABRIEL WILSON Date of ....... : 1990 Family Phys ................... : UNKNOWN Phone .................. : [phone] Age ................................ : 30 Film# .................. .:[id number] Sex ................................. : F Unsigned transcriptions are preliminary reports and do not represent a medical or legal document CT CTA CHEST NON-CORONARY [address] [address] COMPLETE:09/26/20 16:27 KBO 95447 Reason(s): dizziness with elevated d-dimer CT CHEST WITH IV CONTRAST INDICATION: Dizziness, elevated d-dimer, rule out pulmonary embolism COMPARISON: Chest x-ray 09/15/2020 CONTRAST: 75 mL IsoVue 370 One or more of the following dose reduction techniques were utilized in effectively lowering the patient's radiation dose for this examination: Automated Exposure Control, Adjustment of the mA and/or kV according to patient size, or Iterative reconstruction. FINDINGS: VASCULAR: There is good visualization of the pulmonary arterial tree into the segmental branch level. No pulmonary embolic disease is identified. LUNGS: No pulmonary nodules or masses. PLEURA AND PERICARDIUM: No pleural or pericardial effusions. MEDIASTINUM AND ALEX: No mediastinal or hilar adenopathy or masses. CHEST WALL: No axillary adenopathy. SKELETAL: Skeletal structures are within normal limits. UPPER ABDOMEN: Unremarkable. IMPRESSION: Negative study. Electronically Reviewed and Signed By Page 1 of [address] [place] [address] PHONE: [phone] FAX: [phone] Name .................. : MIKKI Shahid Acct Number.................. : [id number] ROOM. ................. : TR-02 MR Number ................... : [id number] Stay type ............. : E/R Discharge Date......... ... : Admit Date ......... : 09/26/20 Admit Phys .................... : GABRIEL WILSON Date of ....... : 1990 Family Phys ................... : UNKNOWN Phone .................. : [phone] Age ................................ : 30 Film# ............... ... .:[id number] Sex ................................. : F Unsigned transcriptions are preliminary reports and do not represent a medical or legal document CT CTA CHEST NON-CORONARY [place] [address] [address] COMPLETE:09/26/20 16:27 KBO [id number] Reason(s): dizziness with elevated d-dimer Dami Mcrae MD , 09/26/20 19:25, JWS Transcribe Initials: BRANDON , Transcribe Date: 09/26/20 19:04, Dictation Date: Copy for: [facility] via fax Copy for: EMERGENCY DEPT via modem Copy for: 710 MED REC DISCHARGED Page 2 of 2 Name Value Range Interpretation Code Description Data Randa rce(s) Supporting Document(s) ID Date Data Source [id number] 09/26/2020 07:25:00 PM EDT [facility] [address] [place] [address] PHONE: [phone] FAX: [phone] Name .................. : MIKKI Shahid Acct Number.................. : [id number] ROOM. ................. : TR-02 MR Number ................... : [id number] Stay type ............. : E/R Discharge Date......... ... : Admit Date ......... : 09/26/20 Admit Phys .................... : GABRIEL WILSON Date of ....... : 1990 Family Phys ................... : UNKNOWN Phone .................. : [phone] Age ................................ : 30 Film# .................. .:[id number] Sex ................................. : F Unsigned transcriptions are preliminary reports and do not represent a medical or legal document CT HEAD W/O CONTRAST 24745 COMPLETE:09/26/20 16:27 KBO 27710 Reason(s): dizziness CT BRAIN WITHOUT IV CONTRAST INDICATION: Dizziness COMPARISON: 05/01/2018 CONTRAST: None One or more of the following dose reduction techniques were utilized in effectively lowering the radiation dose for this examination: Automated Exposure Control, Adjustment of the mA and/or kV according to patient size, or Iterative Reconstruction. FINDINGS: Ventricles and sulci are normal in appearance. Barakat white differentiation is intact. No extra-axial collection or intracranial hemorrhage. No indication of acute or prior ischemic CVA. No mass or mass effect. Calvarium and skull base are within normal limits. To the extent included sinuses are clear. IMPRESSION: Negative study. Electronically Reviewed and Signed By Dami Mcrae MD , 09/26/20 19:25, MALU Transcribe Initials: BRANDON , Transcribe Date: 09/26/20 18:59, Dictation Date: Copy for: [facility]DY HUI via fax Copy for: EMERGENCY DEPT via [employer] Page 1 of 2 [facility] [address] [place] [address] PHONE: [phone] FAX: [phone] Name .................. : MIKKI Shahid Acct Number.................. : [id number] ROOM. ................. : TR-02 MR Number ................... : [id number] Stay type ............. : E/R Discharge Date......... ... : Admit Date ......... : 09/26/20 Admit Phys .................... : GABRIEL WILSON Date of ....... : 1990 Family Phys ................... : UNKNOWN Phone .................. : [phone] Age ................................ : 30 Film# .................. .:[id number] Sex ................................. : F Unsigned transcriptions are preliminary reports and do not represent a medical or legal document CT HEAD W/O CONTRAST 98217 COMPLETE:09/26/20 16:27 KBO 97874 Reason(s): dizziness Copy for: 710 MED REC DISCHARGED Page 2 of 2 Name Value Range Interpretation Code Description Data Randa rce(s) Supporting Document(s) ID Date Data Source [id number] 09/26/2020 07:24:00 PM EDT [facility] [address] [place] [address] PHONE: [phone] FAX: [phone] Name .................. : MIKKI GHOSH Zehra Acct Number.................. : [id number] ROOM. ................. : [place] MR Number ................... : [id number] Stay type ............. : E/R Discharge Date......... ... : Admit Date ......... : 0 09/26/20 Admit Phys .................... : GABRIEL WILSON Date of ....... : 1990 Family Phys ................... : UNKNOWN Phone .................. : [phone] Age ................................ : 30 Film# .................. .:[id number] Sex ................................. : F Unsigned transcriptions are preliminary reports and do not represent a medical or legal document DOPPLER VENOUS BILAT LEG 59431 COMPLETE:09/26/20 15:59 KNB 16527 Reason(s): L hamstring pain and R foot swelling with hx of dizziness ULTRASOUND BILATERAL LOWER EXTREMITY VENOUS INDICATION: Right foot swelling, left leg pain, rule out DVT COMPARISON: None Duplex imaging with color flow Doppler and spectral analysis was used to study the deep venous system from common femoral veins through the calves. A combination of compressibility and flow augmentation was utilized to assess patency. FINDINGS: RIGHT LEG The examination shows no deep venous thrombosis. Patent common femoral, femoral, and popliteal veins. Patent posterior tibial trunk and posterior tibial vein. Patent greater saphenous. Spontaneous flow and/or compressibility is noted. LEFT LEG The examination shows no deep venous thrombosis. Patent common femoral, femoral, and popliteal veins. Patent posterior tibial trunk and posterior tibial vein. Patent greater saphenous. Spontaneous flow and/or compressibility is noted. IMPRESSION: No deep venous thrombosis. Electronically Reviewed and Signed By Dami Mcrae MD , 09/26/20 19:24, MALU Transcribe Initials: BRANDON , Transcribe Date: 09/26/20 18:45, Dictation Date: Copy for: RODDY HUI via fax Copy for: EMERGENCY DEPT via mode Copy for: 710 MED REC DISCHARGED Page 1 of 1 Name Value Range Interpretation Code Description Data Randa rce(s) Supporting Document(s) ID Date Data Source [id number] 09/26/2020 06:57:00 PM EDT [facility] Name Value Range Interpretation Code Description Data Randa rce(s) Supporting Document(s) TROPONIN T <0.01 NG/ML 0.00 - 0.10 [facility] TROPONIN T0.1 ng/ml Recommended as the c linical threshold value forTroponin T. ID Date Data Source [id number] 09/26/2020 03:34:00 PM EDT [facility] Name Value Range Interpretation Code Description Data Randa rce(s) Supporting Document(s) Thyrotropin [Units/volume] in Serum or Plasma by Detec tion limit <= 0.05 mIU/L 0.83 uIU/mL 0.47 - 5.01 [facility] ID Date Data Source [id number] 09/26/2020 03:27:00 PM EDT [facility] Name Value Range Interpretation Code Description Data Randa rce(s) Supporting Document(s) TROPONIN T <0.01 NG/ML 0.00 - 0.10 [facility] TROPONIN T0.1 ng/ml Recommended as the c linical threshold value forTroponin T. ID Date Data Source [id number] 09/26/2020 03:23:00 PM EDT [facility] Name Value Range Interpretation Code Description Data Randa rce(s) Supporting Document(s) Magnesium [Mass/volume] in Serum or Plasma 1.9 MG/DL 1.7 - 2.2 [facility] ID Date Data Source [id number] 09/26/2020 03:23:00 PM EDT [facility] Name Value Range Interpretation Code Description Data Randa rce(s) Supporting Document(s) Lipase [Enzymatic activity/volume] in Serum or Plasma 22 U/L 13 - 60 [facility] ID Date Data Source [id number] 09/26/2020 03:23:00 PM EDT [facility] Value Range Interpretation Code Description Data Randa rce(s) Supporting Document(s) COMPREHENSIVE METABOLIC PANEL [facility] COMPREHENSIVE METABOLIC PANEL Sodium [Moles/volume] in Serum or Plasma 135 mEq/L 134 - 153 [facility] Potassium [Moles/volume] in Serum or Plasma 3.8 mEq/L 3.6 - 5.0 [facility] Chloride [Moles/volume] in Serum or Plasma 102 mEq/L 98 - 107 [facility] Carbon dioxide, total [Moles/volume] in Serum or Plasma 23 MEQ/L 22 - 30 [facility] Glucose [Mass/volume] in Serum or Plasma 88 MG/DL 70 - 99 [facility] BUN 6 MG/DL 7 - [address] [facility] Creatinine [Mass/volume] in Serum or Plasma 0.6 MG/DL 0.7 - 1.5 L [facility] BUN/CREAT 10 8 - 27 [facility] al Protein [Mass/volume] in Serum or Plasma 7.2 G/DL 6.3 - 8.2 [facility] Albumin [Mass/volume] in Serum or Plasma 3.7 G/DL 3.9 - 5.0 L [facility] Globulin [Mass/volume] in Serum by calculation 3.5 GM/DL 2.4 - 3.2 H [facility] A/G RATIO 1.1 0.8 - 2.0 [facility] Calcium [Mass/volume] in Serum or Plasma 9.2 MG/DL 8.4 - 10.2 [facility] Bilirubin.total [Mass/volume] in Serum or Plasma <0.7 MG/DL 0.2 - 1.3 [facility] Alkaline phosphatase [Enzymatic activity/volume] in Serum or Plasma 72 U/L 38 - 126 [facility] Aspartate aminotransferase [Enzymatic activity/volume] in Serum or Plasma 15 U/L 5 - 40 [facility] Alanine aminotransferase [Enzymatic activity/volume] in Seru m or Plasma 10 U/L 7 - 56 [facility] Anion gap 3 in Serum or Plasma 10.0 mmol/L 8.0 - 16.0 [facility] AGE 30 yrs [facility] NON-AA GFR >60 mL/min [facility] ital AFR AMER GFR >60 mL/min [facility] spital Male GFR In terprentation 20-49 yrs >60 mL/min Normal 50-59 yrs >56 mL/min Normal 60-69 yrs >49 mL/min Normal 70-79yrs >42 mL/min Normal 80 and above >35 mL/min Normal Female GFR Interpretation 20-39 yrs >60 mL/min Normal 40-49 yrs >58 mL/min Normal 50-59 yrs >51 mL/min Normal 60-69 yrs >45 mL/min Normal 70-79 yrs >39 mL/min Normal 80 and above >32 mL/min Normal ID Date Data Source [id number] 09/26/2020 03:21:00 PM EDT [facility] Name Value Range Interpretation Code Description Data Randa rce(s) Supporting Document(s) Fibrin D-dimer FEU [Mass/volume] in Platelet poor plasma 1.34 ug /mL 0.27 - 0.50 H [facility] ID Date Data Source [id number] 09/26/2020 03:20:00 PM EDT [facility] Name Value Range Interpretation Code Description Data Randa rce(s) Supporting Document(s) Prothrombin time (PT) 12.9 SECONDS 11.0 - 15.5 [facility] INR in Platelet poor plasma by Coagulation assay 0.96 0.93 - 1. 23 [facility] aPTT in Blood by Coagulation assay 41.1 SECONDS 24.8 - 36.7 H [facility] \\BLDo\\INR INTERPRETATION\\BLDx\\ Therapeutic range for Coumadin and related oral anticoagulants. - International Normalized Ratio (INR): 2.0 - 3.0 for Venous Thrombosis, Pulmonary Embolus, Tissue heart valves, Acute AL Atrial Fibrillation, Valvular heart disease and recurrent Systemic Embolism. - International Normalized Ratio (INR): 2.5 - 3.5 for Mechanical Prosthetic valve. ID Date Data Source [id number] 09/26/2020 03:17:00 PM EDT [facility] Name Value Range Interpretation Code Description Data Randa rce(s) Supporting Document(s) HCG SERUM QUAL NEGATIVE NORMAL: NEGATIVE [facility] HCG SERUM QL REENTER NEGATIVE NORMAL: NEGATIVE [facility] { KIT LOT # [id number] ){ KIT EXP DATE 02/15/22 ){ PROCEDURAL CONTROL VALID ) ID Date Data Source [id number] 09/26/2020 03:04:00 PM EDT [facility] Name Value Range Interpretation Code Description Data Randa rce(s) Supporting Document(s) CBC W/AUTOMATED DIFF [facility] COMPLETE BLOOD COUNT Leukocytes [#/volume] in Blood by Automated count 12.1 10^3/uL 4.2 - 11.0 H [facility] Erythrocytes [#/volume] in Blood by Automated count 4.63 10^6/uL 4. 20 - 5.40 [facility] Hemoglobin [Mass/volume] in Blood 13.7 g/dL 12.0 - 16.0 [facility] Hematocrit [Volume Fraction] of Blood by Automated count 40.3 % 3 7.0 - 47.0 [facility] Erythrocyte mean corpuscular volume [Entitic volume] by Auto mated count 87.0 fL 81.0 - 101 [facility] Erythrocyte mean corpuscular hemoglobin [Entitic mass] by Automated count 29.6 pg 27.0 - 34.0 [facility] Erythrocyte mean corpuscular hemoglobin concentration [Mass/volume] by Automated count 34.0 g/dL 31.0 - 36.0 [facility] Erythrocyte distribution width [Ratio] by Automated count 12.9 % 11.5 - 14.5 [facility] Platelets [#/volume] in Blood by Automated count 275 10^3/uL 150 - 45 0 [facility] Platelet mean volume [Entitic volume] in Blood by Automated count 10.7 fL 7.4 - 10.4 H [facility] Neutrophils/100 leukocytes in Blood by Automated count 77.1 % 37. 0 - 80.0 [facility] Lymphocytes/100 leukocytes in Blood by Manual count 14.6 % 25.0 - 40.0 L [facility] Monocytes/100 leukocytes in Blood by Automated count 6.2 % 3.0 - 8.0 [facility] Eosinophils/100 leukocytes in Blood by Automated count 1.3 % 0.0 - 7.0 [facility] Basophils/100 leukocytes in Blood by Automated count 0.5 % 0.0 - 2.5 [facility] %IG 0.3 % 0.0 - 0.0 H [facility] al %NRBC 0.0 % 0.0 - 0.0 [facility] al Neutrophils [#/volume] in Blood by Automated count 9.29 10^3/uL 2.00 - 6.90 H [facility] Lymphocytes [#/volume] in Blood by Automated count 1.76 10^3/uL 0.60 - 3.40 [facility] Monocytes [#/volume] in Blood by Automated count 0.75 10^3/uL 0.00 - 0.90 [facility] Eosinophils [#/volume] in Blood by Automated count 0.16 10^3/uL 0.00 - 0.70 [facility] Basophils [#/volume] in Blood by Automated count 0.06 10^3/uL 0.00 - 0.20 [facility] #IG 0.04 10^3/uL 0.00 - 0.10 [facility] #NRBC 0.00 10^3/uL 0.00 - 0.00 [facility] MANUAL DIFF NOT INDICATED [facility] RBC MORPH NOT INDICATED [facility] ID Date Data Source [id number] 09/26/2020 03:21:00 PM EDT [facility] Name Value Range Interpretation Code Description Data Randa rce(s) Supporting Document(s) URINALYSIS [facility] Hospi steve URINALYSIS SOURCE R [facility] COLOR yellow NORMAL: Yellow [facility] ospital CLARITY clear NORMAL: Clear [facility] Specific gravity of Urine by Test strip 1.010 1.001 - 1.030 [facility] pH 6.5 5 - 9 [facility] Glucose [Mass/volume] in Urine by Test strip NORM NORMAL: Negat [facility] Bilirubin.total [Presence] in Urine by Test strip NEG NORMAL: Negative [facility] Ketones [Presence] in Urine by Test strip NEG NORMAL: Negative [facility] Protein [Mass/volume] in Urine by Test strip NEG NORMAL: Negat [facility] Nitrite [Presence] in Urine by Test strip NEG NORMAL: Negative [facility] BLOOD NEG NORMAL: Negative [facility] LEUK EST NEG NORMAL: Negative [facility] Urobilinogen [Mass/volume] in Urine by Test strip NOR less meena n 1.0 mg/dL [facility] MICROSCOPIC Not Indicate [facility] ID Date Data Source [id number] 09/23/2020 09:45:00 AM EDT [facility] Name Value Range Interpretation Code Description Data Randa rce(s) Supporting Document(s) SARS-CoV-2 RNA Resp Ql COLBY+probe NOT DETECTED [facility] This lab was ordered by AIDEN gil and reported by AIDEN Mcintyre. ID Date Data Source [id number] 09/18/2020 10:09:52 AM EDT [facility] Name Value Range Interpretation Code Description Data Randa rce(s) Supporting Document(s) [facility] [id number] [file] [id number] [file] [id number] ID Date Data Source [id number] 09/17/2020 08:57:00 PM EDT [facility] [address] [place] [address] RESPIRATORY CARE REPORT ==== ---------NAME------- NUMBER SEX AGE ADMIT DISC. XRAY# F/C DENISE Shahid [id number] F 30 09/15/20 09/15/[id number] SB4 E/R DATE OF : 1990 M/R# [id number] PH#: [phone] TR-07 LOCATION: EMERGENCY DEPT EKG [id number] COMP LETE:09/16/20 06:50 CJM [id number] PHYSICIAN: DONATO Sherman Name Value Range Interpretation Code Description Data Randa rce(s) Supporting Document(s) ID Date Data Source [id number] 09/17/2020 09:29:00 AM EDT [facility] [address] [place] [address] PHONE: [phone] FAX: [phone] Name .................. : MIKKI GHOSH Zehra Acct Number.................. : [id number] ROOM. ................. : TR-07 MR Number ................... : [id number] Stay type ............. : E/R Discharge Date......... ... : Admit Date ......... : 09/15/20 Admit Phys .................... : DONATO Sherman Date of ....... : 1990 Family Phys ................... : UNKNOWN Phone .................. : [phone] Age ................................ : 30 Film# .................. .:[id number] Sex ................................. : F Unsigned transcriptions are preliminary reports and do not represent a medical or legal document CHEST 2 VIEWS [id number] COMPLETE:09/15/20 18:06 61519 Reason(s): Chest Pain CHEST X-RAY: 2-VIEWS COMPARISON: 08/22/19 FINDINGS: There is no acute consolidation or congestive heart failure. The heart is not enlarged. There is no hilar adenopathy. There are no pleural effusions. There are mild degenerative changes in the spine. The lower spine angles to the right. IMPRESSION: No evidence of significant acute pulmonary disease. Electronically Reviewed and Signed By Tong Mcmahan MD , 09/17/20 09:29, AML Transcribe Initials: BRANDON , Transcribe Date: 09/15/20 19:30, Dictation Date: Copy for: EMERGENCY DEPT via modem Copy for: 710 MED REC DISCHARGED Page 1 of 1 Name Value Range Interpretation Code Description Data Randa rce(s) Supporting Document(s) ID Date Data Source [id number] 09/15/2020 05:46:00 PM EDT [facility] 1 OrderSheet [facility] Emergency Department [address] [place] [address] Phone #: ext- [phone] 09/15/2020 17:42 Patient: AUGIE SINGER Sex: F : 1990 Age: 30yWEIGHT:122.4 kg (S)ALLERGIES: None, NoneCHIEF COMPLAINT: back painDIAGNOSIS: Backache, Muscle strainLAB ORDERSOrder Description Priority Entered Acknowledged InitialedCMP STAT 18:06 09/15/2020 18:07 Donato Sykes Jack ; Eder CorreaCBC w Diff STAT 18:06 09/15/2020 18:07 Donaot Sykes Jack ; Frank R.N.Beta-HCG, Qual STAT 18:09/15/2020 18:08 Mony,Urine [employer] R.N.DIAGNOSTIC STUDY ORDERSOrder Description Priority Entered Acknowledged InitialedChest 2 View STAT 18:06 09/15/2020 18:07 Mony,(Oxygen?(No)) [employer] Sales R.N. Reason for Study: Chest PainUS Gall Bladder STAT 18:07 09/15/2020 18:08 Mony,(Oxygen?(No)) [employer] ; Eder Correa Reason for Study: RUQ PainMEDICATION/IV/DRIP/FLUID ORDERSOrder Description Priority Entered Acknowledged InitialedMotrin 600 mg PO 18:06 09/15/2020 18:14 Mony,X1 dose: 600 mg [employer] Sales ; Eder Correa(NOW x1)GENERAL ORDERSOrder Description Priority Entered Acknowledged InitialedEKG 18:06 09/15/2020 18:07 Donato Sykes Jack ; Eder Correa[Electronically signed by Eder Sykes R.N. (19:44 09/15/2020)][Electronically signed by [employer] Sales (20:40 09/15/2020)][Electronically locked by Eder Sykes R.N. (19:44 09/15/2020)] Name Value Range Interpretation Code Description Data Randa rce(s) Supporting Document(s) ID Date Data Source [id number] 09/15/2020 05:46:00 PM EDT [facility] 1 Medication Reconciliation Report [facility] Emergency Department [address] [place] [address] Phone #: ext- [phone] 09/15/2020 17:42 Patient: AUGIE SINGER Sex: F : 1990 Age: 30yWeight: 122.4 kgHeight/Length: 67 in.BMI: 42.3ALLERGIES: None, NoneThe patient's Home Medications are listed below:CONTINUE TAKING THE FOLLOWING MEDICATIONS: Pantoprazole Sodium Oral (40 mg) 1 tablet, daily Pepcid Oral (20 mg), dailyThe source(s) of the original Home Medication information:patientThe following Medications were given to the patient in the Emergency Department:Motrin [PO] PO 600 mg, administered: 18:09 09/15/2020The following Medications were prescribed to the patient:None. Name Value Range Interpretation Code Description Data Randa rce(s) Supporting Document(s) ID Date Data Source [id number] 09/15/2020 05:46:00 PM EDT [facility] 1 Medication Administration Record [facility] Emergency Department [address] [place] [address] Phone #: ext- [phone] 09/15/2020 17:42 Patient: AUGIE SINGER Sex: F : 1990 Age: 30yWeight: 122.4 kgHeight/Length: 67 inBMI: 42.3ALLERGIES: None, None Date/Time Medication Administered Medication OrderedGiven MOTRIN [PO] (IBUPROFEN) Motrin 600 mg PO X1 dose: 84690:09/15/2020 Dose: 600 mg Tablets PO mg (NOW x1)Eder Sykes R.N. Name Value Range Interpretation Code Description Data Randa rce(s) Supporting Document(s) ID Date Data Source [id number] 09/15/2020 05:46:00 PM EDT [facility] 1 General Instructions [facility] Emergency Department [address] [place] [address] Phone #: ext [phone] 09/15/2020 17:42 Patient: AUGIE SINGER Sex: F : 1990 Age: 30yAcute posterior chest wall myofascial strainAcute thoracic back pain associated with muscle strain.INSTRUCTIONSWarnings: GENERAL WARNINGS: Return or contact your physician immediately if your conditionworsens or changes unexpectedly, if not improving as expected, or if other problems arise.Your Current Medications: Your current home medications have been reviewed.CONTINUE TAKING THE FOLLOWING MEDICATIONS:Pantoprazole Sodium Oral : Tablet Delayed Release 40 mg, 1 tablet daily.Pepcid Oral : Tablet 20 mg, daily.Understanding of the discharge instructions verbalized by patient.Follow- up with: [facility] Res[facility] Team [place], , , [address], , [place], [address] Follow up in two days as needed. Call for an appointment. ADDITIONAL INFORMATIONMuscle Strain in the ExtremitiesA muscle strain is a stretching and tearing of muscle fibers. This causes pain, especially when youmove that muscle. There may also be some swelling and bruising.Home care Keep the hurt area raised above heart level to reduce pain and swelling. This is especially important during the first 48 hours. Apply an ice pack over the injured area for 15 to 20 minutes every 3 to 6 hours. You should do this for the first 24 to 48 hours. You can make an ice pack by filling a plastic bag that seals at the top with ice cubes and then wrapping it with a thin towel. Be careful not to injure your skin with the ice treatments. Ice should never be applied directly to skin. Continue the use of ice packs for relief of pain and swelling as needed. After 48 hours, apply heat (warm shower or warm bath) for 15 to 20 minutes several times a day, or alternate ice and heat. 2 General Instructions [facility] Emergency Department [address] [place] [address] Phone #: gun- [phone] 09/15/2020 17:42 Patient: AUGIE SINGER Sex: F : 1990 Age: 30y You may use fquk-nlm-qfkphzi pain medicine to control pain, unless another medicine was prescribed. If you have chronic liver or kidney disease or ever had a stomach ulcer or gastrointestinal bleeding, talk with your healthcare provider before using these medicines. For leg strains: If crutches have been recommended, don't put full weight on the hurt leg until you can do so without pain. You can return to sports when you are able to hop and run on the injured leg without pain.Follow-up careFollow up with your healthcare provider, or as advised.When to seek medical adviceCall your healthcare provider right away if any of these occur: The toes of the injured leg become swollen, cold, blue, numb, or tingly Pain or swelling increases [phone] [employer]. [address] [place] [address]. All rights reserved. This information is not intended as asubstitute for professional medical care. Always follow your healthcare professional's instructions.Back Pain (Acute or Chronic) 3 General Instructions [facility] Emergency Department [address] [place] [address] Phone #: ext- [phone] 09/15/2020 17:42 -- Patient: AUGIE SINGER Sex: F : 1990 Age: 30yBack pain is one of the most common problems. The good news is that most people feel better in 1 to2 weeks, and most of the rest in 1 to 2 months. Most people can remain active.People who have pain describe it differently--not everyone is the same. The pain can be sharp, stabbing, shooting, aching, cramping or burning. Movement, standing, bending, lifting, sitting, or walking may worsen pain. It can be limited to one spot or area, or it can be more generalized. It can spread upwards, to the front, or go down your arms or legs (sciatica). It can cause muscle spasm.Most of the time, mechanical problems with the muscles or spine cause the pain. Mechanicalproblems are usually caused by an injury to the muscles or ligaments. Illness can cause back pain,but it's usually not caused by a serious illness. Mechanical problems include: 4 General Instructions [facility] Emergency Department [address] [place] [address] Phone #: ext- [phone] 09/15/2020 17:42 Patient: AUGIE SIGNER Sex: F : 1990 Age: 30y Physical activity such as sports, exercise, work, or normal activity Overexertion, lifting, pushing, pulling incorrectly or too aggressively Sudden twisting, bending, or stretching from an accident, or accidental movement Poor posture Stretching or moving wrong, without noticing pain at the time Poor coordination, lack of regular exercise (check with your doctor about this) Spinal disc disease or arthritis StressPain can also be related to , or illness like appendicitis, bladder or kidney infections, pelvicinfections, and many other things.Acute back pain usually gets better in 1 to 2 weeks. Back pain related to disk disease, arthritis in thespinal joints, or narrowing of the spinal canal (spinal stenosis) can become chronic and last formonths or years.Unless you had a physical injury such as a car accident or fall, X-rays are usually not needed for thefirst assessment of back pain. If pain continues and does not respond to medical treatment, you mayneed X-rays and other tests.Home careTry this home care advice: When in bed, try to find a position of comfort. A firm mattress is best. Try lying flat on your back with pillows under your knees. You can also try lying on your side with your knees bent up toward your chest and a pillow between your knees. At first, don't try to stretch out the sore spots. If there is a strain, it's not like the good soreness you get after exercising without an injury. In this case, stretching may make it worse. Don't sit for long periods, as in a long car ride or during other travel. This puts more stress on the lower back than standing or walking. During the first 24 to 72 hours after an acute injury or flare up of chronic back pain, apply an ice pack to the painful area for 20 minutes and then remove it for 20 minutes. Do this over a period of 60 to 90 minutes or several times a day. This will reduce swelling and pain. Wrap the ice pack in a thin towel or plastic to protect your skin. You can start with ice, then switch to heat. Heat (hot shower, hot bath, or heating pad) reduces pain and works well for muscle spasms. Heat can be applied to the painful area for 20 5 General Instructions [facility] Emergency Department [address] [place] [address] Phone #: ext- [phone] 09/15/2020 17:42 Patient: AUGIE SINGER Sex: F : 1990 Age: 30y minutes then remove it for 20 minutes. Do this over a period of 60 to 90 minutes or several times a day. Don't sleep on a heating pad. It can lead to skin painter or tissue damage. You can alternate ice and heat therapy. Talk with your doctor about the best treatment for your back pain. Therapeutic massage can help relax the back muscles without stretching them. Be aware of safe lifting methods and don't lift anything without stretching first.MedicinesTalk to your doctor before using medicine, especially if you have other medical problems or are takingother medicines. You may use anby-uii-mtxgjet medicine as directed on the bottle to control pain, unless another pain medicine was prescribed. If you have chronic conditions like diabetes, liver or kidney disease, stomach ulcers, or gastrointestinal bleeding, or are taking blood thinners, talk to your doctor before taking any medicine. Be careful if you are given a prescription medicines, narcotics, or medicine for muscle spasms. They can cause drowsiness, affect your coordination, reflexes, and judgement. Don't drive or operate heavy machinery.Follow-up careFollow up with your healthcare provider, or as advised.If X-rays were taken, you will be told of any new findings that may affect your careCall 911Call 911 if any of the following occur: Trouble breathing Confusion Very drowsy or trouble awakening Fainting or loss of consciousness Rapid or very slow heart rate Loss of bowel or bladder controlWhen to seek medical advice 6 General Instructions [facility] Emergency Department [address] [place] [address] Phone #: ext- [phone] 09/15/2020 17:42 Patient: AUGIE SINGER Sex: F : 1990 Age: 30yCall your healthcare provider right away if any of these occur: Pain becomes worse or spreads to your legs Weakness or numbness in one or both legs Numbness in the groin or genital area 1999- 2019 [employer]. [address] [place] [address]. All rights reserved. This information is not intended as asubstitute for professional medical care. Always follow your healthcare professional's instructions. You have been given the following additional information: Muscle Strain, Extremity Back Pain (Acute or Chronic)(Electronically signed by Asc[employer]ion Sales 09/15/2020 20:40) Name Value Range Interpretation Code Description Data Randa rce(s) Supporting Document(s) ID Date Data Source [id number] 09/15/2020 05:46:00 PM EDT [facility] 1 Clinical Report - Nurses [facility] Emergency Department [address] [place] [address] Phone #: ext- [phone] 09/15/2020 17:42 Patient: AUGIE SINGER Sex: F : 1990 Age: 30yTRIAGEArrived by EMS. Historian: patient. Unaccompanied. ( presents with chest pain).Triage time: 17:44 09/15/2020. Acuity: LEVEL 3.Chief Complaint: CHEST PAIN.17:48 09/15/20. Alert. No acute distress.This started today. Onset. (1700). She has had nausea.Treatment SOCIAL STUDIES DEPARTMENT CHAIR:None.SEPSIS SCREEN: SEPSIS SCREEN NEGATIVE. No suspected or confirmed signs of infection present.--17:48 09/15/20 Eder Sykes R.N.17:44 09/15/20. BP: 137/83. MAP: 101. HR: 73. RR: 16. O2 saturation: 100%. Temp: 98.7 F. Pain levelnow: 07/26. --17:48 09/15/20 Eder Sykes R.N.Weight: 122.4 kg stated. Height/Length: 67 inches Per Patient. BMI: 42.3. --17:44 09/15/20 Eder Sykes R.N.MedicationsPepcid Oral (Tablet 20 mg), daily. --17:52 09/15/20 Eder Sykes R.N. Pantoprazole Sodium Oral (Tablet Delayed Release 40 mg) 1 tablet, daily. --18:06 09/15/20 Eder Sykes R.N.AllergiesNone. --17:46 09/15/20 Eder Sykes R.N.None. --17:52 09/15/20 Eder Sykes R.N.PROBLEMS:Gastroesophageal Reflux Disease.Gastroenteritis.Heart Murmur.GERD.Bronchitis.Atypical Chest Pain.Contusion.Concussion. --17:52 09/15/20 Eder Sykes R.N. 2 Clinical Report - Nurses [facility] Emergency Department [address] [place] [address] Phone #: [phone] ers- [phone] 09/15/2020 17:42 Patient: AUGIE SINGER Sex: F : 1990 Age: 30y 17:48 07/31/21. Medication/allergy information source: the patient. --17:48 09/15/20 Eder Sykes R.N. ADDITIONAL SURGERIES: no known surgeries. History 17:48 09/15/20. SOCIAL HX: Never smoker. No alcohol use or drug use. She was offered HIV testing but declined and hepatitis C testing but declined. She has not traveled outside the [place] Infectious disease exposure: No infectious disease exposure. The patient was not exposed to Coronavirus. Patient is not a known carrier of tuberculosis, hepatitis, HIV, MRSA or VRE. Patient is not a known carrier of CRE. SELF HARM ASSESSMENT: Self harm assessment was performed. The patient answered "no" to the question(s) "Have you recently felt down, depressed, or hopeless?", "Do you have thoughts of harming or killing yourself?", "Do you have a plan for harming or killing yourself?" and "Have you recently had thoughts about harming or killing others?". ABUSE ASSESSMENT: No report of abuse. FALL RISK ASSESSMENT: Fall risk assessment completed. No risk factors identified. --17:48 09/15/20 Eder Sykes R.N. FAMILY HX: Father: Atrial Fibrillation. 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 Assessment 17:48 09/15/20. She states feels the same. --17:48 09/15/20 Eder Sykes R.N. Interventions 17:48 09/15/20. Identification band on patient. To treatment room. --17:48 09/15/20 Eder Sykes R.N.PHYSICAL HBDIYILINY96:48 09/15/20. To room via stretcher. Patient gowned.GENERAL / NEURO / PSYCH: Alert. Oriented X 4. Appears anxious and in distress.HEENT: Mucous membranes are pink.RESPIRATORY: Respirations not labored. Chest nontender. Breath sounds within normal limits.CVS: Heart sounds w ithin normal limits. Pulses within normal limits. Capillary refill less than 2 seconds.GI / : Abdomen soft and nontender.EXTREMITIES: No lower extremity edema.SKIN: Skin is warm and dry. Normal skin turgor. Skin is non-tender. --17:50 09/15/20 Eder Sykes R.N.NURSING PROGRESS NOTESEKG time: (late entry - 17:44 09/15/2020). EKG was performed by a tech and shown to the ED physician. 3 Clinical Report - Nurses [facility] Emergency Department [address] [place] [address] Phone #: ext- [phone] 09/15/2020 17:42 Patient: AUGIE SINGER Sex: F : 1990 Age: 30y --17:55 09/15/20 [facility] 18:00 09/15/20. Reassurance given. Two patient identifiers checked. Call light placed in reach. Side rails up x 2. Bed placed in lowest position. Brakes of bed on. Patient ready for evaluation- ED physician notified. --19:44 09/15/20 Eder Sykes R.N. 18:09 09/15/2020 Motrin (Ibuprofen) PO Tablets 600 mg given. Allergies verified and confirmed 5 rights. Information reviewed with patient including reason for taking this medication, signs of allergic reaction and precautions. Verbalizes understanding. --18:14 09/15/20 Eder Sykes R.N.DISPOSITION / DISCHARGE 19:33 09/15/20. BP: 145/88. HR: 70. RR: 17. O2 saturation: 100%. Temp: 98.4 F. Pain level now 0/10. --19:33 09/15/20 [facility] Tech, Romero, ER Tech1 19:27 09/15/20. Departure time: 19:37 09/15/2020. Condition at departure: improved and stable. The goals identified in the patient's plan of care were met. Fall risk assessment completed. No risk factors identified. No learning barriers present. Discharge instructions provided and reviewed with the patient. Reviewed warnings. Reviewed medication(s). Treatments reviewed. Reviewed referral to a primary care physician. Patient verbalized understanding. Written instructions provided in Belgian. The patient was discharged by the physician. She was discharged home. She left ambulatory and via taxi. --19:43 09/15/20 Eder Sykes R.N.Locked/Released at 09/15/2020 19:44 by Eder Sykes R.N. Name Value Range Interpretation Code Description Data Randa rce(s) Supporting Document(s) ID Date Data Source [id number] 09/15/2020 05:46:00 PM EDT [facility] 1 Clinical Report - Physicians/Mid Levels [facility] Emergency Department [address] [place] [address] Phone #: ext- [phone] 09/15/2020 17:42 Patient: AUGIE SINGER Sex: F : 1990 Age: 30y Time Seen: 18:10 09/15/2020. Arrived- By private vehicle. Historian- patient.HISTORY OF PRESENT ILLNESS Chief Complaint: BACK PAIN. It is described as being moderate in degree and in the area of the upper thoracic spine and interscapular area. The quality is noted to be sharp. No radiation. It is still present. It was abrupt in onset and has been constant. No bowel dysfunction. Additional history - Initially started as sharp left chest pain while sitting on cough. No exertion or coughing. Pain quickly moved to upper back between shoulder blade. Mild brief episode of right upper abdominal pain. No nausea. She became anxious and was worried about heart disease. She was told months ago she had dilated heart chamber on echo. Patient denies an injury. No other injury. Similar symptoms previously. None. Recent medical care: Not recently seen/assessed.REVIEW OF SYSTEMSLast normal menstrual period- 1 weeks ago. Denies current . No fever, headache, cough,difficulty breathing or skin rash. No nausea, vomiting, diarrhea, difficulty with urination or urinaryfrequency. No hematuria. The patient has had abdominal pain. All other systems reviewed and arenegative.PAST HISTORYNo family history of premature CAD. Problems: Gastroesophageal Reflux Disease. Heart Murmur. Bronchitis. Surgeries: No history of previous surgery. Additional Surgeries: no known surgeries. Medications: Pantoprazole Sodium Oral (Tablet Delayed Release 40 mg) 1 tablet, daily. Pepcid Oral (Tablet 20 mg), daily. Allergies: 2 Clinical Report - Physicians/Mid Levels [facility] Emergency Department [address] [place] [address] Phone #: ext- [phone] 09/15/2020 17:42 Patient: AUIGE SINGER Sex: F : 1990 Age: 30y None. None.SOCIAL HISTORYNever smoker. No recent travel.FAMILY HISTORYFather: Atrial Fibrillation.ADDITIONAL NOTESThe nursing notes have been reviewed.PHYSICAL EXAMVital Signs: 09/15/2020 17:44 BP: 137/83. MAP: 101. HR: 73. RR: 16. O2 saturation: 100%. Temp: 98.7F. Pain level now: 6/10.Appearance: Alert. No acute distress.HEENT: Normal external inspection.ENT: Ears normal. Pharynx normal.Neck: Normal inspection. Neck nontender. Painless ROM. No meningeal signs.CVS: Normal heart rate and rhythm. Heart sounds normal. Pulses normal.Respiratory: No respiratory distress. Painless inspiration. Breath sounds normal. Chest nontender.Abdomen: Normal inspection. Soft and nontender. Bowel sounds normal. No organomegaly. Obese.(negative lacey's sign).Back: Normal inspection. Mild soft tissue tenderness in the left upper thoracic area. No CVAtenderness. (pain with palpation over left rhomboid region).Skin: Skin warm. Normal skin color. No rash. Normal skin turgor.Extremities: Extremities exhibit normal ROM. Extremities nontender.Neuro: Oriented X 3. Mood/affect normal. No motor deficit. No sensory deficit.LABS, X-RAYS, AND EKGEKG: EKG time: 17:44 09/15/2020. No acute ischemia. Normal sinus rhythm. Rate: 76. Normal Pwaves. LVH. Normal axis. Normal ST and T waves and QT. Prior EKG unavailable. The study hasbeen interpreted contemporaneously by me. Interpretation time: 18:01 09/15/2020.X-Rays: Chest X-ray negative.Laboratory Tests: Beta-HCG, Qual Urine: (AME: 09/15/2020 18:20) ( MsgRcvd 09/15/2020 18:49) Final results Test Result Flag Units (Reference) HCG URINE QUAL NEGATIVE (NORMAL: NEGAT HCG URINE QL REENTER NEGATIVE (NORMAL: NEGAT { KIT LOT # [id number] ){ KIT EXP DATE 02/15/22 ){ PROCEDURAL CONTROL VALID ) US Gall Bladder: (AME: 09/15/2020 18:07) ( MsgRcvd 09/15/2020 18:58) Final results Exam 3 Clinical Report - Physicians/Mid Levels [facility] Emergency Department [address] [place] [address] Phone #: ext- [phone] 09/15/2020 17:42 Patient: AUGIE SINGER Sex: F : 1990 Age: 30[place] [address] ---------NAME--------- NUMBER SEX AGE ADMIT DISC. XRAY# F/C TYPE MIKKI Shahid [id number] F 30 09/15/2019781023 SB4 E/R DATE OF : 1990 M/R# [id number] #: [id number] TR-07 LOCATION: EMERGENCY DEPT TRANSCRIBED: 09/15/20 18:56 IF US GALLBLADDER [id number] COMPLETED:09/15/20 18:47 KNB [id number] Reason(s): RUQ Pain PHYSICIAN: DONATO Sherman R A D I O L O G Y R E P O R T PATIENT HISTORY: Back and abdominal pain, nausea EXAM: US Abdomen, Right Upper Quadrant. CLINICAL HISTORY:Back and abdominal pain, nausea TECHNIQUE: Right upper quadrant sonography performed with image documentation. COMPARISON: US FINDINGS: LIVER: Within normal limits in size and echogenicity. No mass. GALLBLADDER:The gallbladder appears normal. No gallbladder wall thickening seen. No gallstones are evident. COMMON BILE DUCT: Within normal limits in size. PANCREAS: The visualized pancreas appears within normal limits. The distal pancreas is obscured by bowel gas. RIGHT KIDNEY: Unremarkable. Normal renal contours. No renal mass or calculus. No hydronephrosis. IMPRESSION: Normal appearance of the gallbladder. Electronically Signed By: Yuan Alcaraz MD , Radiologist Date/Time: 09/15/20 18:56CMP: (AME: 09/15/2020 18:55) ( MsgRcvd 09/15/2020 19:22) Final results Test Result Flag Units (Reference) COMPREHENSIVE METABOLIC PANEL COMPREHENSIVE METABOLIC PANEL SODIUM 136 mEq/L (134 - 153) POTASSIUM 4.2 mEq/L (3.6 - 5.0) CHLORIDE 102 mEq/L (98 - 107) CO2 27 MEQ/L (22 - 30) GLUCOSE 95 MG/DL (70 - 99) 4 Clinical Report - Physicians/Mid Levels [facility] Emergency Department [address] [place] [address] Phone #: ext- [phone] 09/15/2020 17:42 Patient: AUGIE SINGER Sex: F : 1990 Age: 30y BUN 5 L MG/DL (7 - 21) CREATININE 0.7 MG/DL (0.7 - 1.5) BUN/CREAT 7 L (8 - 27) TOTAL PROTEIN 7.2 G/DL (6.3 - 8.2) ALBUMIN 3.9 G/DL (3.9 - 5.0) GLOBULIN 3.3 H GM/DL (2.4 - 3.2) A/G RATIO 1.2 (0.8 - 2.0) CALCIUM 9.1 MG/DL (8.4 - 10.2) TOTAL BILI <0.7 MG/DL (0.2 - 1.3) ALKALINE PHOS 72 U/L (38 - 126) SGOT/AST 15 U/L (5 - 40) SGPT/ALT 12 U/L (7 - 56) ANION GAP 7.0 L mmol/L (8.0 - 16.0) AGE 30 yrs NON-AA GFR >60 mL/min AFR AMER GFR >60 mL/min Male GFR Interprentation 20-49 yrs >60 mL/min [id number] yrs >56 mL/min Normal 60-69 yrs >49 mL/min Normal 70-79yrs>42 mL/min Normal 80 and above >35 mL/min Normal Female GFRInterpretation 20-39 yrs >60 mL/min Normal 40-49 yrs >58 mL/minNormal 50-59 yrs >51 mL/min Normal 60-69 yrs >45 mL/min [id number] yrs >39 mL/min Normal 80 and above >32 mL/min NormalCBC w Diff: (AME: 09/15/2020 18:55) ( MsgRcvd 09/15/2020 19:08) Final results Test Result Flag Units (Reference) CBC W/AUTOMATED DIFF COMPLETE BLOOD COUNT WBC 12.3 H 10/uL (4.2 - 11.0) RBC 4.33 10/uL (4.20 - 5.40) HEMOGLOBIN 12.8 g/dL (12.0 - 16.0) HEMATOCRIT 38.2 % (37.0 - 47.0) MCV 88.2 fL (81.0 - 101) MCH 29.6 pg (27.0 - 34.0) MCHC 33.5 g/dL (31.0 - 36.0) RDW 12.9 % (11.5 - 14.5) PLATELETS 288 10/uL (150 - 450) MPV 10.7 H fL (7.4 - 10.4) NEUT 77.6 % (37.0 - 80.0) LYMPH 13.4 L % (25.0 - 40.0) MONO 7.0 % (3.0 - 8.0) EOS 1.1 % (0.0 - 7.0) BASO 0.6 % (0.0 - 2.5) %IG 0.3 H % (0.0 - 0.0) %NRBC 0.0 % (0.0 - 0.0) #NEUT 9.56 H 10/uL (2.00 - 6.90) #LYMPH 1.65 10/uL (0.60 - 3.40) #MONO 0.86 10/uL (0.00 - 0.90) #EOS 0.13 10/uL (0.00 - 0.70) #BASO 0.07 10/uL (0.00 - 0.20) #IG 0.04 10/uL (0.00 - 0.10) #NRBC 0.00 10/uL (0.00 - 0.00) MANUAL DIFF NOT INDICATED RBC MORPH NOT INDICATEDChest 2 View: (AME: 09/15/2020 18:06) ( MsgRcvd 09/15/2020 19:32) In Progress Exam CHEST 2 VIEWS [facility] 5 Clinical Report - Physicians/Mid Levels [facility] Emergency Department [address] [place] [address] Phone #: ext- [phone] 09/15/2020 17:42 Patient: AUGIE SINGER Sex: F : 1990 Age: 30y [address] [place] [address] PHONE: [phone] FAX: [phone] Name .................. : MIKKI Shahid Acct Number.................. : [id number] ROOM. ................. : [facility] MR Number ................... : [id number] Stay type ............. : E/R Discharge Date......... ... : Admit Date ......... : 09/15/20 Admit Phys .................... : DONATO Sherman Date of ....... : 1990 Family Phys ................... : UNKNOWN Phone .................. : [phone] Age ................................ : 30 Film# .................. .:[id number] Sex ................................. : F Unsigned transcriptions are preliminary reports and do not represent a medical or legal document CHEST 2 VIEWS [id number] COMPLETE:09/15/20 18:06 [id number] Reason(s): Chest Pain CHEST X-RAY: 2-VIEWS COMPARISON: 08/22/19 FINDINGS: There is no acute consolidation or congestive heart failure. The heart is not enlarged. There is no hilar adenopathy. There are no pleural effusions. There are mild degenerative changes in the spine. The lower spine angles to the right. IMPRESSION: No evidence of significant acute pulmonary disease. Electronically Reviewed and Signed By DCTNAME , SIGNDATE, AML Transcribe Initials: BRANDON , Transcribe Date: 09/15/20 19:30, Dictation Date: <<REPDIST>> Page 1 of 1.PROGRESS AND PROCEDURESCourse of Care: 18:59 09/15/20. Pleuritic pain with some residual upper back pain. Unlikely cardiacetiology. no cardiac risk factors. Possible referred pain secondary to biliary colic or GERD. Currently benignabdominal examination 19:23 09/15/20. Resting comfortably. Pain improved. No respiratory distress. Disposition: Discharged. Condition: stable. 6 Clinical Report - Physicians/[facility] Emergency Department [address] [place] [address] Phone #: ext- [phone] 09/15/2020 17:42 Patient: AUGIE SINGER Sex: F : 1990 Age: 30yCLINICAL IMPRESSION Acute posterior chest wall myofascial strain Acute thoracic back pain associated with muscle strain.INSTRUCTIONS Warnings: GENERAL WARNINGS: Return or contact your physician immediately if your condition worsens or changes unexpectedly, if not improving as expected, or if other problems arise. Your Current Medications: Your current home medications have been reviewed. CONTINUE TAKING THE FOLLOWING MEDICATIONS: Pantoprazole Sodium Oral : Tablet Delayed Release 40 mg, 1 tablet daily. Pepcid Oral : Tablet 20 mg, daily. Understanding of the discharge instructions verbalized by patient. Follow-up with: [facility] Respective [place], , , [address], , [place], [address] Follow up in two days as needed. Call for an appointment.(Electronically signed by [employer] 09/15/2020 20:40) Name Value Range Interpretation Code Description Data Randa rce(s) Supporting Document(s) ID Date Data Source [id number] 09/15/2020 06:56:00 PM EDT [facility] [address] [facility] [place] [address] ---------NAME--------- NUMBER SEX AGE ADMIT DISC. XRAY# F/C TYPE MIKKI GHOSH N [id number] F 30 09/15/2019781023 SB4 E/R DATE OF : 1990 M/R# [id number] #: [id number] TR-07 LOCATION: EMERGENCY DEPT TRANSCRIBED: 09/15/20 18:56 IF US GALLBLADDER [id number] COMPLETED:09/15/20 18:47 KNB [id number] Reason(s): RUQ Pain PHYSICIAN: DONATO VACA C R A D I O L O G Y R E P O R T PATIENT HISTORY:Back and abdominal pain, nauseaEXAM: US Abdomen, Right Upper Quadrant.CLINICAL HISTORY:Back and abdominal pain, nauseaTECHNIQUE: Right upper quadrant sonography performed with image documentation.COMPARISON: USFINDINGS:LIVER: Within normal limits in size and echogenicity. No mass.GALLBLADDER:The gallbladder appears normal. No gallbladder wall thickening seen.No gallstones are evident.COMMON BILE DUCT: Within normal limits in size.PANCREAS: The visualized pancreas appears within normal limits. The distalpancreas is obscured by bowel gas.RIGHT KIDNEY: Unremarkable. Normal renal contours. No renal mass or calculus. Nohydronephrosis.IMPRESSION:Normal appearance of the gallbladder.Electronically Signed By:Yuan Alcaraz MD , RadiologistDate/Time: 09/15/20 18:56 Name Value Range Interpretation Code Description Data Randa rce(s) Supporting Document(s) ID Date Data Source [id number] 09/15/2020 07:21:00 PM EDT [facility] Name Value Range Interpretation Code Description Data Randa rce(s) Supporting Document(s) COMPREHENSIVE METABOLIC PANEL [facility] COMPREHENSIVE METABOLIC PANEL Sodium [Moles/volume] in Serum or Plasma 136 mEq/L 134 - 153 [facility] Potassium [Moles/volume] in Serum or Plasma 4.2 mEq/L 3.6 - 5.0 [facility] Chloride [Moles/volume] in Serum or Plasma 102 mEq/L 98 - 107 [facility] Carbon dioxide, total [Moles/volume] in Serum or Plasma 27 MEQ/L 22 - 30 [facility] Glucose [Mass/volume] in Serum or Plasma 95 MG/DL 70 - 99 [facility] BUN 5 MG/DL 7 - 21 L [facility] Creatinine [Mass/volume] in Serum or Plasma 0.7 MG/DL 0.7 - 1.5 [facility] BUN/CREAT 7 8 - 27 L [facility] Protein [Mass/volume] in Serum or Plasma 7.2 G/DL 6.3 - 8.2 [facility] Albumin [Mass/volume] in Serum or Plasma 3.9 G/DL 3.9 - 5.0 [facility] Globulin [Mass/volume] in Serum by calculation 3.3 GM/DL 2.4 - 3.2 H [facility] A/G RATIO 1.2 0.8 - 2.0 [facility] Calcium [Mass/volume] in Serum or Plasma 9.1 MG/DL 8.4 - 10.2 [facility] Bilirubin.total [Mass/volume] in Serum or Plasma <0.7 MG/DL 0.2 - 1.3 [facility] Alkaline phosphatase [Enzymatic activity/volume] in Serum or Plasma 72 U/L 38 - 126 [facility] Aspartate aminotransferase [Enzymatic activity/volume] in Serum or Plasma 15 U/L 5 - 40 [facility] Alanine aminotransferase [Enzymatic activity/volume] in Seru m or Plasma 12 U/L 7 - 56 [facility] Anion gap 3 in Serum or Plasma 7.0 mmol/L 8.0 - 16.0 L [facility] AGE 30 yrs [facility] NON-AA GFR >60 mL/min [facility] AFR AMER GFR >60 mL/min [facility] Male GFR In terprentation 20-49 yrs >60 mL/min Normal 50-59 yrs >56 mL/min Normal 60-69 yrs >49 mL/min Normal 70-79yrs >42 mL/min Normal 80 and above >35 mL/min Normal Female GFR Interpretation 20-39 yrs >60 mL/min Normal 40-49 yrs >58 mL/min Normal 50-59 yrs >51 mL/min Normal 60-69 yrs >45 mL/min Normal 70-79 yrs >39 mL/min Normal 80 and above >32 mL/min Normal ID Date Data Source [id number] 09/15/2020 07:08:00 PM EDT [facility] Name Value Range Interpretation Code Description Data Randa rce(s) Supporting Document(s) CBC W/AUTOMATED DIFF [facility] COMPLETE BLOOD COUNT Leukocytes [#/volume] in Blood by Automated count 12.3 10^3/uL 4.2 - 11.0 H [facility] Erythrocytes [#/volume] in Blood by Automated count 4.33 10^6/uL 4. 20 - 5.40 [facility] Hemoglobin [Mass/volume] in Blood 12.8 g/dL 12.0 - 16.0 [facility] Hematocrit [Volume Fraction] of Blood by Automated count 38.2 % 3 7.0 - 47.0 [facility] Erythrocyte mean corpuscular volume [Entitic volume] by Auto mated count 88.2 fL 81.0 - 101 [facility] Erythrocyte mean corpuscular hemoglobin [Entitic mass] by Automated count 29.6 pg 27.0 - 34.0 [facility] Erythrocyte mean corpuscular hemoglobin concentration [Mass/volume] by Automated count 33.5 g/dL 31.0 - 36.0 [facility] Erythrocyte distribution width [Ratio] by Automated count 12.9 % 11.5 - 14.5 [facility] Platelets [#/volume] in Blood by Automated count 288 10^3/uL 150 - 45 0 [facility] Platelet mean volume [Entitic volume] in Blood by Automated count 10.7 fL 7.4 - 10.4 H [facility] Neutrophils/100 leukocytes in Blood by Automated count 77.6 % 37. 0 - 80.0 [facility] Lymphocytes/100 leukocytes in Blood by Manual count 13.4 % 25.0 - 40.0 L [facility] Monocytes/100 leukocytes in Blood by Automated count 7.0 % 3.0 - 8.0 [facility] Eosinophils/100 leukocytes in Blood by Automated count 1.1 % 0.0 - 7.0 [facility] Basophils/100 leukocytes in Blood by Automated count 0.6 % 0.0 - 2.5 [facility] %IG 0.3 % 0.0 - 0.0 H [facility] %NRBC 0.0 % 0.0 - 0.0 [facility] Neutrophils [#/volume] in Blood by Automated count 9.56 10^3/uL 2.00 - 6.90 H [facility] Lymphocytes [#/volume] in Blood by Automated count 1.65 10^3/uL 0.60 - 3.40 [facility] Monocytes [#/volume] in Blood by Automated count 0.86 10^3/uL 0.00 - 0.90 [facility] Eosinophils [#/volume] in Blood by Automated count 0.13 10^3/uL 0.00 - 0.70 [facility] Basophils [#/volume] in Blood by Automated count 0.07 10^3/uL 0.00 - 0.20 [facility] #IG 0.04 10^3/uL 0.00 - 0.10 [facility] #NRBC 0.00 10^3/uL 0.00 - 0.00 [facility] MANUAL DIFF NOT INDICATED [facility] RBC MORPH NOT INDICATED [facility] ID Date Data Source [id number] 09/15/2020 06:48:00 PM EDT [facility] Name Value Range Interpretation Code Description Data Randa rce(s) Supporting Document(s) HCG URINE QUAL NEGATIVE NORMAL: NEGATIVE [facility] HCG URINE QL REENTER NEGATIVE NORMAL: NEGATIVE [facility] { KIT LOT # [id number] ){ KIT EXP DATE 02/15/22 ){ PROCEDURAL CONTROL VALID ) ID Date Data Source [id number] 09/15/2020 03:53:00 PM EDT [facility] Name Value Range Interpretation Code Description Data Randa rce(s) Supporting Document(s) Albumin [Mass/volume] in Serum or Plasma 3.9 [facility] ([facility]) Alanine aminotransferase [Enzymatic activity/volume] in Serum or Pl asma 12 [facility] ([facility]) Calcium [Mass/volume] in Serum or Plasma 9.1 [facility] ([facility]) Carbon dioxide, total [Moles/volume] in Serum or Plasma 27 [facility]) Alkaline phosphatase [Enzymatic activity/volume] in Serum or Plasma 7 2 [facility] ([facility]) Chloride [Moles/volume] in Serum or Plasma 102 [facility] ([facility]) Protein [Mass/volume] in Serum or Plasma 7.2 [facility] ([facility]) Potassium [Moles/volume] in Serum or Plasma 4.2 [facility] ([facility]) Sodium 136 [facility] Aspartate aminotransferase [Enzymatic activity/volume] in Serum or Plasma 15 [facility]) Glucose 95 70-99 [facility] Creatinine For GFR 0.7 [facility] ([facility]) Urea nitrogen [Mass/volume] in Serum or Plasma 7 [facility] ([facility]) ID Date Data Source [id number] 09/15/2020 03:53:00 PM EDT [facility] ([facility]) Name Value Range Interpretation Code Description Data Randa rce(s) Supporting Document(s) White Blood Count 12.3 4.2-11.0 [facility] ([facility]) Red Blood Count 4.33 4.20-5.40 [facility] ([facility]) Platelets 288 130-400 [facility] Hemoglobin 12.8 12.0-16.0 [facility] ([facility]) Hematocrit 38.2 37.0-47.0 [facility] ([facility]) ID Date Data Source [id number] 09/03/2020 10:07:00 AM EDT [facility] ([facility]) Name Value Range Interpretation Code Description Data Randa rce(s) Supporting Document(s) Troponin Laboratory test result [facility] ([facility]) ID Date Data Source [id number] 09/03/2020 10:07:00 AM EDT [facility] ([facility]) Name Value Range Interpretation Code Description Data Randa rce(s) Supporting Document(s) Creatine kinase [Enzymatic activity/volume] in Serum or Plasma 90 [facility] (Cardiology [facility]) CPK-MB Laboratory test result [facility] ([facility]) ID Date Data Source [id number] 09/03/2020 10:07:00 AM EDT [facility] ([facility]) Name Value Range Interpretation Code Description Data Randa rce(s) Supporting Document(s) White Blood Count 11.5 4.0-10.0 [facility] Red Blood Count 4.76 4.00-5.40 [facility] ([facility]io [facility]) Platelets 281 150-450 [facility] (Cardiology [facility]) Hematocrit 42.5 [facility] ([facility]) Hemoglobin 14.0 [facility] ([facility]) ID Date Data Source [id number] 09/03/2020 10:07:00 AM EDT [facility] ([facility]) Name Value Range Interpretation Code Description Data Randa rce(s) Supporting Document(s) Aspartate aminotransferase [Enzymatic activity/volume] in Se rum or Plasma 18 15-37 [facility] ([facility]) Alanine aminotransferase [Enzymatic activity/volume] i n Serum or Plasma 24 30-65 [facility] ([facility]) Alk Phos 67 50-136 [facility] Total Bilirubin 0.2 0.0-1.0 [facility] ([facility]io [facility]) Albumin 3.7 3.2-5.2 [facility] Total Protein 7.6 6.4-8.2 [facility] ([facility]) A/G Ratio Laboratory test result 1.00-1.93 [facility] ([facility]) ID Date Data Source [id number] 08/30/2020 08:30:00 AM EDT [facility] Name Value Range Interpretation Code Description Data Randa rce(s) Supporting Document(s) SARS-CoV-2 RNA Resp Ql COLBY+probe NOT DETECTED [facility] This lab was ordered by AIDEN gil and reported by AIDEN Mcintyre. ID Date Data Source [id number] 04/24/2020 07:03:00 PM EST [facility] Name Value Range Interpretation Code Description Data Randa rce(s) Supporting Document(s) BHD COVID-19 RT-PCR CORE [employer]INEER SWAB Not Detected Not Detected [employer] [facility] This test has received Emergency Use Aut horization (EUA). We willcontinue to follow federal and state requirements for COVID-19reporting. This test was developed and its performance characteristicsdetermined by [employer]. It has not been cleared orapproved by the U.S. Food and Drug Administration but has been givenemergency use authorization. Results should be used in conjunctionwith clinical findings and should not form the sole basis for adiagnosis or treatment decision. Methods: SARS-CoV-2 Multiplex RT-PCRAssayA not detected (negative) test result for this test means that SARS-CoV-2 RNA was not present in the specimen above the limit ofdetection. Laboratory test results should always be considered in thecontext of clinical observations and epidemiological data in making afinal diagnosis and patient management decisions. Results will bereported to government agencies as required. ID Date Data Source [id number] 04/21/2020 11:30:00 AM EST [facility] Name Value Range Interpretation Code Description Data Randa rce(s) Supporting Document(s) SARS coronavirus 2 RNA [Presence] in Res piratory specimen by COLBY with probe detection NEGATIVE [facility] reported by [employer]. ID Date Data Source [id number] 04/21/2020 12:00:00 AM EST [facility] Name Value Range Interpretation Code Description Data Randa rce(s) Supporting Document(s) Carestart Rapid COVID Antigen Test Negative [facility] ID Date Data Source [id number] 03/13/2020 12:00:00 PM EST [facility] ([facility]) Name Value Range Interpretation Code Description Data Randa rce(s) Supporting Document(s) Laboratory test finding (navigational concept) Laboratory test result [facility] ([facility]) Laboratory test finding (navigational concept) Laboratory test result [facility] ([facility], [facility]) Laboratory test finding (navigational concept) 6.0 units 5.0-9.0 [facility] ([facility], [facility]) Laboratory test finding (navigational concept) 1.006 1.002-1.035 [facility] ([facility], [facility]) Laboratory test finding (navigational concept) Laboratory test result [facility] ([facility], [facility]) Laboratory test finding (navigational concept) 0.2 mg/dL 0.0-2.0 [facility] ([facility], [facility]) Laboratory test finding (navigational concept) Laboratory test result [facility] ([facility], [facility]) Laboratory test finding (navigational concept) Laboratory test result [facility] ([facility], [facility]) Laboratory test finding (navigational concept) Laboratory test result [facility] ([facility], [facility]) Laboratory test finding (navigational concept) Laboratory test result [facility] ([facility], [facility]) Laboratory test finding (navigational concept) Laboratory test result [facility] ([facility], [facility]) Laboratory test finding (navigational concept) Laboratory test result [facility] ([facility], [facility]) Laboratory test finding (navigational concept) 0 /HPF 0-3 [facility] ([facility], [facility]) Laboratory test finding (navigational concept) Laboratory test result [facility] ([facility], [facility]) Laboratory test finding (navigational concept) 1 /HPF 0-3 [facility] ([facility], [facility]) Laboratory test finding (navigational concept) 0 /HPF 0-6 [facility] ([facility], [facility]) Laboratory test finding (navigational concept) 0 /LPF 0-1 [facility] ([facility], [facility]) ID Date Data Source [id number] 03/13/2020 11:34:00 AM EST [facility] ([facility], [facility]) Name Value Range Interpretation Code Description Data Randa rce(s) Supporting Document(s) Lipoprotein lipase [Enzymatic activity/volume] in Serum or Plasm a 91 U/L 73-393 [facility] ([facility], [facility]) ID Date Data Source [id number] 03/13/2020 11:34:00 AM EST [facility] ([facility], [facility]) Name Value Range Interpretation Code Description Data Randa rce(s) Supporting Document(s) Glucose, Fasting 82 mg/dL 70-100 [facility] ([facility], [facility]) Blood Urea Nitrogen 11 mg/dL 7-18 [facility] ([facility], [facility]) Creatinine For GFR 0.82 mg/dL 0.55-1.30 [facility] ([facility], [facility]) Glomerular Filtration Rate Laboratory test result [facility] ([facility], [facility]) <content>Units are mL/min/1.73 m2</content>
<content></content>
<content>Chronic Kidney Disease Staging per NKF:</content>
<content></content>
<content>Stage I & II GFR >=60 Normal to Mildly Decreased</content>
<content>Stage III GFR 30-59 Moderately Decreased</content>
<content>Stage IV GFR 15-29 Severely Decreased</content>
<content>Stage V GFR <15 Very Little GFR Left</content>
<content>ESRD GFR <15 on REAMING MACHINE TENDER</content>
<content></content> Sodium Level 138 meq/L 136-145 [facility] ([facility], [facility]) Carbon Dioxide Level 29 meq/L 21-32 [facility] ([facility], [facility]) Chloride Level 105 meq/L 98-107 [facility] ([facility], [facility]) Potassium Serum 4.1 meq/L 3.5-5.1 [facility] ([facility], [facility]) Calcium Level 9.5 mg/dL 8.5-10.1 [facility] ([facility], [facility]) Anion Gap 4 meq/L 8-16 [facility] ([facility], [facility]) ID Date Data Source [id number] 03/13/2020 11:34:00 AM EST [facility] ([facility], [facility]) Name Value Range Interpretation Code Description Data Randa rce(s) Supporting Document(s) Ast/Sgot 11 U/L 7-37 [facility] ([facility], [facility]) Alt/SGPT 20 U/L 12-78 [facility] ([facility], [facility]) Alkaline Phosphatase 75 U/L 45-117 [facility] ([facility], [facility]) Bilirubin,Total 1.1 mg/dL 0.2-1.0 [facility] ([facility], [facility]) Bilirubin,Direct 0.2 mg/dL 0.0-0.2 [facility] ([facility]) Albumin 3.8 GM/DL 3.2-5.2 [facility] ([facility], [facility]) Total Protein 7.7 GM/DL 6.4-8.2 [facility] ([facility], [facility]) Albumin/Globulin Ratio 1.0 1.2-2.2 [facility] ([facility], [facility]) ID Date Data Source [id number] 03/13/2020 11:34:00 AM EST [facility] ([facility]) Name Value Range Interpretation Code Description Data Randa rce(s) Supporting Document(s) CPK Creatine Phosphokinase 85 U/L 26-192 [facility] ([facility], [facility]) CK-MB Value Mass Laboratory test result [facility] ([facility], [facility]) MB/CK Relative Index 1.18 [facility] ( [facility]) <content>DIAGNOSIS CRITERIA</content>
<content>MMB ng/ml Relative Index (RI)</content>
<content>NON-AMI < or = 5 N/A</content>
<content>BARAKAT ZONE > 5 < or = 4</content>
<content>AMI > 5 > 4</content>
<content></content> Troponin I Laboratory test result [facility] ([facility], [facility]) <content>Troponin I Reference Interval f or Siemens Harvey LOCI:</content>
<content></content>
<content>99th Percentile= 0.00-0.045 ng/ml</content>
<content></content>
<content>Risk Stratification:</content>
<content><= 0.10 ng/ml Decreased Risk for Adverse Clinical</content>
<content>Events.</content>
<content>0.10-1.50 ng/ml Increased Risk for Adverse Clinical</content>
<content>Events. Evaluation of additional</content>
<content>criterion and/or repeat testing in 2-6</content>
<content>hours is suggested to rule out myocardial</content>
<content>damage.</content>
<content>>= 1.50 ng/ml Indicative of Myocardial Injury.</content>
<content></content> ID Date Data Source [id number] 03/13/2020 11:34:00 AM EST [facility] ([facility], [facility]) Name Value Range Interpretation Code Description Data Randa rce(s) Supporting Document(s) White Blood Count 12.3 10 4.0-10.0 [facility] ([facility], [facility]) Red Blood Count 4.53 10 4.00-5.40 [facility] ([facility]) Hemoglobin 13.3 g/dL 12.0-15.5 [facility] ([facility], [facility]) Hematocrit 40.6 % 36.0-47.0 [facility] ([facility], [facility]) Mean Corpuscular Volume 89.6 fl 80.0-96.0 M ED[facility] ([facility], [facility]) Mean Corpuscular HGB Conc 32.8 g/dL 32.0-36.5 [facility] ([facility], [facility]) Mean Corpuscular Hemoglobin 29.4 pg 27.0-33.0 [facility] ([facility], [facility]) Red Cell Distribution Width 13.1 % 11.5-14.5 [facility] ([facility], [facility]) Neutrophils % 78.5 % 36.0-66.0 [facility] ([facility], [facility]) Lymph % 13.0 % 24.0-44.0 [facility] ([facility], [facility]) Platelet Count, Automated 279 10 150-450 [facility] ([facility], [facility]) Eos % 0.8 % 0.0-3.0 [facility] ([facility], [facility]) Hubbard % 6.7 % 0.0-5.0 [facility] ([facility], [facility]) Nucleated Red Blood Cell % 0.0 % 0-0 MED [facility] ([facility], [facility]) Immature Granulocyte % 0.3 % 0-3.0 [facility] ([facility], [facility]) Baso % 0.7 % 0.0-1.0 [facility] ([facility], [facility]) Lymph # 1.6 10 1.5-5.0 [facility] ([facility], [facility]) Neutrophils # 9.7 10 1.5-8.5 [facility] ([facility], [facility]) Hubbard # 0.8 10 0.0-0.8 [facility] ([facility], [facility]) Eos # 0.1 10 0.0-0.5 [facility] ([facility], [facility]) Baso # 0.1 10 0.0-0.2 [facility] ([facility], [facility]) ID Date Data Source [id number] 01/16/2020 12:37:00 PM EST [facility] ([facility]) Name Value Range Interpretation Code Description Data Randa rce(s) Supporting Document(s) Surgical pathology study Laboratory test result [facility] ([facility]) <content>FINAL DIAGNOSIS</content>
<content></content>
<content>Esophagus, below Z line, biopsy:</content>
<content>Gastric cardia type mucosa with mild reactive gastropathy.</content>
<content>No evidence for intestinal metaplasia.</content>
<content>No evidence for H. pylori-like organisms on H & E stain.</content>
<content>01/17/20201328</content>
<content></content>
<content>CLINICAL DIAGNOSIS</content>
<content></content>
<content>Refractory heartburn</content>
<content>01/17/2020719</content>
<content></content>
<content>GROSS DIAGNOSIS</content>
<content></content>
<content>Received in formalin labeled "biopsy below Z-line" consists of two</content>
<content>fragments of nassar tissue measuring 0.2 x 0.2 x 0.2 cm in aggregate. All</content>
<content>in one.</content>
<content>- SV</content>
<content>01/17/2020719</content>
<content></content>
<content>Signed BONNY DILLARD MD 01/17/2020 1554</content>
<content></content> ID Date Data Source [id number] 12/22/2019 12:06:00 PM EST [facility] [address] [place] [address] PHONE: [phone] FAX: [phone] Name .................. : MIKKI Shahid Acct Number.................. : [id number] [facility]....[facility] ................... : [id number] Stay type ............. : E/R Discharge Date......... ... : 12/21/19 Admit Date ....... .. : 12/21/19 Admit Phys .................... : GABRIEL WILSON Date of ....... : 1990 Family Phys ................... : UNKNOWN Phone .................. : [phone] Age ................................ : 29 Film# .................. .:[id number] Sex ................................. : F Unsigned transcriptions are preliminary reports and do not represent a medical or legal document GALLBLADDER [id number] COMPLETE:12/21/19 10:44 [facility] [id number] Reason(s): Nausea w Vomiting G ALLBLADDER ULTRASOUND, 12/21/19: FINDINGS: Hepatic mass, biliary dilatation, or fatty infiltration of the liver is not seen. Common bile duct is within normal limits measuring 2.1 mm. Gallstone, gallbladder wall thickening, gallbladder sludge, or pericholecystic fluid is not identified. Mass, hydronephrosis, or calculus is not seen in the right kidney, which measured 14.1 x 5.3 x 6.8 cm. There is no ascites. Evaluation of pancreas is limited by overlying bowel gas. Visualized pancreas is unremarkable. IMPRESSION: Acute pathology or mass not seen. Incomplete visualization of the pancreas due to overlying bowel gas. Otherwise unremarkable right upper quadrant ultrasound. Electronically Reviewed and Signed By Maksim Soto MD , 12/22/19 12:06, KGG Transcribe Initials: SSR, Transcribe Date: 12/21/19 13:59, Dictation Date: Copy for: EMERGENCY DEPT via modem Copy for: 710 MED REC DISCHARGED Page 1 of 1 Name Value Range Interpretation Code Description Data Randa rce(s) Supporting Document(s) ID Date Data Source [id number] 12/21/2019 09:10:00 AM EST [facility] 1 OrderSheet [facility] Emergency Department [address] [place] [address] Phone #: ext- [phone] 12/21/2019 09:09 Patient: AUGIE SINGER Sex: F : 1990 Age: 29yWEIGHT:127.0 kg (S) HEIGHT:67 inches (S) BMI:43.9ALLERGIES: NoneCHIEF COMPLAINT: diarrhea, abdominal pain, nauseaDIAGNOSIS: Gastroesophageal reflux disease, GastroenteritisLAB ORDERSOrder Description Priority Entered Acknowledged InitialedCBC w Diff STAT 09:34 12/21/2019 09:42 Jj Broussard ED, Jesse ER M.D.; [id number] STAT 09:34 12/21/2019 09:42 Jj Broussard ED, Jesse ER M.D.; [id number] STAT 09:34 12/21/2019 09:42 Jj Broussard ED, Jesse ER M.D.; [id number] (Clean STAT 09:34 12/21/2019 10:04 Jose Peña Riccardo R.N. M.D.;Beta-HCG, Qual STAT 09:34 12/21/2019 09:42 BurnhamSerum Jj Rios telephone services sales representativeRomero Fink M.D.; [id number] STUDY ORDERSOrder Description Priority Entered Acknowledged InitialedUS Gall Bladder STAT 09:34 12/21/2019 10:04 Yessica Peña(Oxygen?(No)) Jj Rios R.N., M.D.; Reason for Study: Nausea w Vomiting, RUQ PainMEDICATION/IV/DRIP/FLUID ORDERSOrder Description Priority Entered Acknowledged InitialedNS IV 1000 mL 09:35 12/21/2019 10:02 Yessica PeñaBolus: : Bolus 1000 Turrin, Jj R.N.mL (X1) MTiffaniDTiffani;Protonix IVPB 40 09:35 12/21/2019 Cancelled: Physician Order 09:58 Caseymg with Dextrose Jj Rios R.NTiffani100 ml spike bag M.DTiffani; 2 OrderSheet [facility] Emergency Department [address] [place] [address] Phone #: ext- [phone] 12/21/2019 09:09 Patient: AUGIE SINGER Sex: F : 1990 Age: 29y(D5W)Zofran 4 mg IVP X 1 09:35 12/21/2019 10:02 Abraham Peñaose: 4 mg (NOW Turrin, Jj R.N.x1) MTiffaniDTiffani;Protonix IV Push 40 09:58 12/21/2019 10:03 Yessica Peñamg (in 10 mL NS, Yessica Peña R.N.; R.N.administer over at Verbal order per;least 2 minutes, Turrin, RiccardoNOW x1) NazaninGENERAL ORDERSOrder Description Priority Entered Acknowledged InitialedNPO 09:34 12/21/2019 09:49 Yessica Peña Riccardo R.N. M.D.;Saline Lock 09:34 12/21/2019 09:49 Yessica Peña Riccardo R.N. M.D.;[Electronically signed by Eleanor Mayfield R.N. (11:22 12/21/2019)][Electronically signed by Jj Rios M.D. (11:25 12/21/2019)][Electronically locked by Eleanor Mayfield R.N. (11:12/21/2019)] Name Value Range Interpretation Code Description Data Randa rce(s) Supporting Document(s) ID Date Data Source [id number] 12/21/2019 09:10:00 AM EST [facility] 1 Medication Reconciliation Report [facility] Emergency Department [address] [place] [address] Phone #: ext- [phone] 12/21/2019 09:09 Patient: AUGIE SINGER Sex: F : 1990 Age: 29yWeight: 127.0 kgHeight/Length: 67 in.BMI: 43.9ALLERGIES: NoneThe patient's Home Medications are listed below:CONTINUE TAKING THE FOLLOWING MEDICATIONS: Pepcid Oral (20 mg), dailyThe source(s) of the original Home Medication information:Not obtained.The following Medications were given to the patient in the Emergency Department:IV NS IV Fluids bolus 1000 mL over 1 hour(s), administered: 12/21/2019 10:02:00 AMZofran [IVP] IVP 4 mg, administered: 12/21/2019 10:02:00 AMPROTONIX [IVP] IVP 40 mg, administered: 12/21/2019 10:03:00 AMThe following Medications were prescribed to the patient:Protonix 40 mg tablet,delayed release Take 1 tablet once a day for 30 days -- Dispense 30 tablet.Refills: 1. Substitution permitted.Pharmacy - [facility] [phone] ; [place] [address]. Phone: .Zofran 4 mg tablet Take 1 tablet four times a day as needed for 4 days -- Dispense 16 tablet. Refills: 0.Substitution permitted.[facility] [phone] ; [place] [address]. . -- Jj Rios M.D. Name Value Range Interpretation Code Description Data Randa rce(s) Supporting Document(s) ID Date Data Source [id number] 12/21/2019 09:10:00 AM [facility] 1 Medication Administration Record [facility] Emergency Department [address] [place] [address] Phone #: ext- [phone] 12/21/2019 09:09 Patient: AUGIE SINGER Sex: F : 1990 Age: 29yWeight: 127.0 kgHeight/Length: 67 inBMI: 43.9ALLERGIES: None Date/Time Medication Administered Medication OrderedStart IV NS NS IV 1000 mL Bolus: : Bolus 083598:02 12/21/2019 Dose: IV Fluids mL (X1)Yessica Peña RMary Bolus: 1000 mL over 1 hour(s)---- Dispensed: 1000 mL bagStop Site: #1 right AC11:16 12/21/2019WeEleanor bowen R.N.Given ZOFRAN [IVP] (ONDANSETRON HCL) Zofran 4 mg IVP X 1 dose: 4 mg10:02 12/21/2019 Dose: 4 mg IVP (NOW x1)Yessica Peña R.N. Site: #1 right ACGiven PROTONIX [IVP] (PANTOPRAZOLE Protonix IV Push 40 mg (in 10 mL10:03 12/21/2019 SODIUM) NS, administer over at least 2RYessica gray R.N. Dose: 40 mg IVP minutes, NOW x1) Site: #1 right AC Name Value Range Interpretation Code Description Data Randa rce(s) Supporting Document(s) ID Date Data Source [id number] 12/21/2019 09:10:00 AM EST [facility] 1 General Instructions [facility] Emergency Department [address] [place] [address] Phone #: ext- [phone] 12/21/2019 09:09 Patient: AUGIE SINGER Sex: F : 1990 Age: 29yGastroesophageal reflux disease. No esophagitis.Acute norovirus gastroenteritis.INSTRUCTIONSDrink plenty of fluids. Avoid alcohol and NSAIDS. NSAIDS include aspirin, ibuprofen (Advil) and naproxen(Aleve). Avoid fatty, fried/greasy, lactose-containing (such as milk, cheese and ice cream), salty and spicyfoods. No alcohol. Do not smoke.Warnings: Further evaluation is necessary in order to conduct further tests (GI specialty). It is veryimportant to follow up with a healthcare provider.GENERAL WARNINGS: Return or contact your physician immediately if your condition worsens orchanges unexpectedly, if not improving as expected, or if other problems arise. SPECIFICALLY, return ifyou develop pain in the abdomen, pelvis, back or shoulder, fever, vomiting, the inability to keep fluidsdown, blood in vomitus, blood in diarrhea, fainting or lightheadedness.Your Current Medications: Your current home medications have been reviewed.CONTINUE TAKING THE FOLLOWING MEDICATIONS:Pepcid Oral : Tablet 20 mg, daily.Prescription Medications:Protonix 40 mg tablet,delayed release Take 1 tablet once a day for 30 days -- Dispense 30 tablet.Refills: 1. Substitution permitted.Pharmacy - [facility] [phone] ; [place] [address]. .Zofran 4 mg tablet Take 1 tablet four times a day as needed for 4 days -- Dispense 16 tablet. Refills: 0.Substitution permitted.[facility] [phone] ; [place] [address]. .Follow-up:Return to the emergency department as needed. Follow up with your healthcare provider in three dayseven if well. Call for an appointment. Reason for referral: evaluation and treatment. Summary of careprovided to patient via paper. Follow up with a vamp marker in five days even if well. Call for anappointment. Reason for referral: evaluation, treatment and upper endoscopy as needed. Summary of careprovided to patient via paper. 2 General Instructions [facility] Emergency Department [address] [place] [address] Phone #: ext- [phone] 12/21/2019 09:09 Patient: AUGIE SINGER Sex: F : 1990 Age: 29yUnderstanding of the discharge instructions verbalized by patient. Expected course of illness, dischargeinstructions, activity level, diet, prescriptions x2, follow-up appointment and risks and benefits of treatmentreviewed with patient and understanding verbalized. Agrees to plan of care. ADDITIONAL INFORMATIONViral Gastroenteritis (Adult)Gastroenteritis is commonly called the "stomach flu," although it has nothing to do with influenza. It ismost often caused by a virus that affects the stomach and intestinal tract and usually lasts from 2 to 7days. Common viruses causing gastroenteritis include norovirus, rotavirus, and hepatitis A. Non-viralcauses of gastroenteritis include bacteria, parasites, and toxins.The danger from repeated vomiting or diarrhea is dehydration. This is the loss of too much fluid fromthe body. When this occurs, body fluids must be replaced. Antibiotics don't help with this illnessbecause it is usually viral. Simple home treatment will be helpful.Symptoms of viral gastroenteritis may include: Watery, loose stools 3 General Instructions [facility] Emergency Department [address] [place] [address] Phone #: ext- [phone] 12/21/2019 09:09 Patient: AUGIE SINGER Sex: F : 1990 Age: 29y Stomach pain or abdominal cramps Fever and chills Nausea and vomiting Loss of bowel control HeadacheHome careGastroenteritis is transmitted by contact with the stool or vomit of an infected person. This can occurfrom person to person or from contact with a contaminated surface.Follow these guidelines when caring for yourself at home: If symptoms are severe, rest at home for the next 24 hours or until you are feeling better. Wash your hands with soap and water or use alcohol-based hydroelectric plant operator to prevent the spread of infection. Wash your hands after touching anyone who is sick. Wash your hands or use alcohol-based hydroelectric plant operator after using the toilet and before meals. Clean the toilet after each use.Remember these tips when preparing food: People with diarrhea should not prepare or serve food to others. When preparing foods, wash your hands before and after. Wash your hands after using cutting boards, countertops, knives, or utensils that have been in contact with raw food. Dry your hands with a single use towel. Keep uncooked meats away from cooked and vqacp-ft-caj foods.MedicineYou may use acetaminophen or NSAID medicines like ibuprofen or naproxen to control fever unlessanother medicine was given. If you have chronic liver or kidney disease, talk with your healthcareprovider before using these medicines. Also talk with your provider if you've had a stomach ulceror gastrointestinal bleeding. Don't give aspirin to anyone under 18 years of age who is ill with a fever.It may cause severe liver damage. Don't use NSAIDS is you are already taking one for anothercondition (like arthritis) or are on aspirin (such as for heart disease or after a stroke).If medicine for vomiting or diarrhea are prescribed, take these only as directed. Nausea and diarrheamedicines are generally OK unless you have bleeding, fever, or severe abdominal pain. 4 General Instructions [facility] Emergency Department [address] [place] [address] Phone #: ext- [phone] 12/21/2019 09:09 Patient: AUGIE SINGER Sex: F : 1990 Age: 29yDietFollow these guidelines for food: Water and liquids are important so you don't get dehydrated. Drink a small amount at a time or suck on ice chips if you are vomiting. If you eat, avoid fatty, greasy, spicy, or fried foods. Don't eat dairy if you have diarrhea. This can make diarrhea worse. Avoid tobacco, alcohol, and caffeine which may worsen symptoms.During the first 24 hours (the first full day), follow the diet below: Beverages. Sports drinks, soft drinks without caffeine, pina unique, mineral water (plain or flavored), decaffeinated tea and coffee. If you are very dehydrated, sports drinks aren't a good choice. They have too much sugar and not enough electrolytes. In this case, commercially available products called oral rehydration solutions, are best. Soups. Eat clear broth, consomm, and bouillon. Desserts. Eat gelatin, ice pops, and fruit juice bars.During the next 24 hours (the second day), you may add the following to the above: Hot cereal, plain toast, bread, rolls, and crackers Plain noodles, rice, mashed potatoes, chicken noodle or rice soup Unsweetened canned fruit (avoid pineapple), bananas Limit fat intake to less than 15 grams per day. Do this by avoiding margarine, butter, oils, mayonnaise, sauces, gravies, fried foods, peanut butter, meat, poultry, and fish. Limit fiber and avoid raw or cooked vegetables, fresh fruits (except bananas), and bran cereals. Limit caffeine and chocolate. Don't use spices or seasonings other than salt. Limit dairy products. Avoid alcohol.During the next 24 hours: Gradually resume a normal diet as you feel better and your symptoms improve. If at any time it starts getting worse again, go back to clear liquids until you feel better. 5 General Instructions [facility] Emergency Department [address] [place] [address] Phone #: ext- [phone] 12/21/2019 09:09 Patient: AUGIE SINGER Sex: F : 1990 Age: 29yFollow-up careFollow up with your healthcare provider, or as advised. Call your provider if you don't get better hours or if diarrhea lasts more than a week. Also follow up if you are unable to keep down liquidsand get dehydrated. If a stool (diarrhea) sample was taken, call as directed for the results.Call [phone] if any of these occur: Trouble breathing Chest pain Confused Severe drowsiness or trouble awakening Fainting or loss of consciousness Rapid heart rate Seizure Stiff neckWhen to seek medical adviceCall your healthcare provider right away if any of these occur: Abdominal pain that gets worse Continued vomiting (unable to keep liquids down) Frequent diarrhea (more than 5 times a day) Blood in vomit or stool (black or red color) Dark urine, reduced urine output, or extreme thirst Weakness or dizziness Drowsiness Fever of 100.4F (38C) or higher, or as directed by your healthcare provider Tunde souza [id number] [employer]. [address] [place] [address], [place] [address]. All rights reserved. This information is not intended as asubstitute for professional medical care. Always follow your healthcare professional's instructions. 6 General Instructions [facility] Emergency Department [address] [place] [address] Phone #: ext- [phone] 12/21/2019 09:09 Patient: AUGIE SINGER Sex: F : 1990 Age: 29yGERD (Adult)The esophagus is a tube that carries food from the mouth to the stomach. A valve (the LES, loweresophageal sphincter) at the lower end of the esophagus prevents stomach acid from flowing upward.When this valve doesn't work properly, stomach contents may repeatedly flow back up (reflux) intothe esophagus. This is called gastroesophageal reflux disease (GERD). GERD can irritate theesophagus. It can cause problems with pain, swallowing or breathing. In severe cases, GERD cancause recurrent pneumonia (from aspiration or breathing in particles) or other serious problems.Symptoms of reflux include burning, pressure or sharp pain in the upper abdomen or mid to lowerchest. The pain can spread to the neck, back, or shoulder. There may be belching, an acid taste inthe back of the throat, chronic cough, or sore throat, or hoarseness. GERD symptoms often occurduring the day after a big meal. They can also occur at night when lying down.Home careLifestyle changes can help reduce symptoms. If needed, your healthcare provider may prescribemedicines. Symptoms often improve with treatment, but if treatment is stopped, the symptoms oftenreturn after a few months. So most persons with GERD will need to continue treatment or get 7 General Instructions [facility] Emergency Department [address] [place] [id number] Phone #: [phone]- [phone] 12/21/2019 09:09 Patient: AUGIE SINGER Sex: F : 1990 Age: 29ytreatment on and off.Lifestyle changes Limit or avoid fatty, fried, and spicy foods, as well as coffee, chocolate, mint, and foods with high acid content such as tomatoes and citrus fruit and juices (orange, grapefruit, lemon). Don't eat large meals, especially at night. Frequent, smaller meals are best. Don't lie down right after eating. And don't eat anything 3 hours before going to bed. Don't drink alcohol or smoke. As much as possible, stay away from second hand smoke. If you are overweight, losing weight will reduce symptoms. Don't wear tight clothing around your stomach area. If your s ymptoms occur during sleep, use a foam wedge to elevate your upper body (not just your head.) Or, place 4" blocks under the head of your bed. Or use 2 bed risers under your bedframe.MedicinesIf needed, medicines can help relieve the symptoms of GERD and prevent damage to the esophagus.Discuss a medicine plan with your healthcare provider. This may include one or more of the followingmedicines: Antacids to help neutralize the normal acids in your stomach. Acid blockers (Histamine or H2 blockers) to decrease acid production. Acid inhibitors (proton pump inhibitors PPIs) to decrease acid production in a different way than the blockers. They may work better, but can take a little longer to take effect.Take an antacid 30 to 60 minutes after eating and at bedtime, but not at the same time as an acidblocker.Try not to take medicines such as ibuprofen and aspirin. If you are taking aspirin for yourheart or other medical reasons, talk to your healthcare provider about stopping it.Follow-up careFollow up with your healthcare provider or as advised by our staff.When to seek medical adviceCall your healthcare provider if any of the following occur: Stomach pain gets worse or moves to the lower right abdomen (appendix area) Chest pain appears or gets worse, or spreads to the back, neck, shoulder, or arm 8 General Instructions [facility] Emergency Department [address] [place] [address] Phone #: ext- [phone] 12/21/2019 09:09 Patient: AUGIE SINGER Sex: F : 1990 Age: 29y An [id number]-[id number] trial of medicine doesn't relieve your symptoms Weight loss that can't be explained Trouble or pain swallowing Frequent vomiting (can't keep down liquids) Blood in the stool or vomit (red or black in color) Feeling weak or dizzy Fever of 100.4F (38C) or higher, or as directed by your healthcare provider [id number] [employer]. [address] [place] [address]. All rights reserved. This information is not intended as asubstitute for professional medical care. Always follow your healthcare professional's instructions. You have been given the following additional information: Gastroenteritis, Viral (Adult) GERD (Adult)(Electronically signed by Jj Rios M.D. 12/21/2019 11:25) Name Value Range Interpretation Code Description Data Randa rce(s) Supporting Document(s) ID Date Data Source [id number] 12/21/2019 09:10:00 AM [facility] 1 Clinical Report - Nurses [facility] Emergency Department [address] [place] [address] Phone #: ext- [phone] 12/21/2019 09:09 Patient: AUGIE SINGER Sex: F : 1990 Age: 29yTRIAGEArrived by private vehicle. Historian: patient. Accompanied by family. ( has a hx of GERD startedyesterday epigastric area and woke up with am with loose stools x3).Acuity: LEVEL 3.Chief Complaint: ABDOMINAL PAIN and DIARRHEA.Alert. No acute distress.This started yesterday.Treatment SOCIAL STUDIES DEPARTMENT CHAIR:(pepcid).SEPSIS SCREEN: SIRS Screen negative. Sepsis Screen negative. No suspected or confirmed signs ofinfection present. --09:16 12/21/19 Yessica Peña R.N.09:11 12/21/19. BP: 161/84. MAP: 109. HR: 81. RR: 18. O2 saturation: 100%. Temp: 97.8 F. Pain levelnow: 07/26. --09:16 12/21/19 Yessica Peña R.N.Weight: 127 kg stated. Height/Length: 67 inches Per Patient. BMI: 43.9. --09:12/21/19 Yessica Peña R.N.MedicationsPepcid Oral (Tablet 20 mg), daily. --09:13 12/21/19 Yessica Peña R.N.AllergiesNone. --09:13 12/21/19 Yessica Peña R.N.PROBLEMS:Concussion.Bronchitis.Atypical Chest Pain.Heart Murmur.LINDSAY D.Contusion. --09:13 12/21/19 Yessica Peña R.N.ADDITIONAL SURGERIES:no known surgeries.HistoryPAST MEDICAL HX: Immunizations: up-to-date. Last normal menstrual period- 1 months ago. Sexualhistory - sexually active and engages in protected sex. 2 Clinical Report - Nurses [facility] Emergency Department [address] [place] [address] Phone #: ext- [phone] 12/21/2019 09:09 Patient: AUGIE SINGER Sex: F : 1990 Age: 29y SOCIAL HX: Never smoker. No alcohol use or drug use. No recent travel. No known contact with a sick individual. She was offered HIV testing but declined and hepatitis C testing but declined. She has not traveled outside the [place] Infectious disease exposure: No infectious disease exposure. Patient is not a known carrier of tuberculosis, hepatitis, HIV, MRSA or VRE. Patient is not a known carrier of CRE. SELF HARM ASSESSMENT: Self harm assessment was performed. The patient answered "no" to the question(s) "Have you recently felt down, depressed, or hopeless?", "Do you have thoughts of harming or killing yourself?", "Do you have a plan for harming or killing yourself?", "Have you recently had thoughts about harming or killing others?", "Do you have any dangerous items in your possession?", "Have you noticed less interest or pleasure in doing things?", "Are you here because you tried to hurt yourself?" and "Have you ever tried to hurt yourself before today?". ABUSE ASSESSMENT: Abuse assessment. Abuse denied. No suspicion of abuse. No report of abuse. NUTRITIONAL RISK ASSESSMENT: The nutritional risk assessment revealed no deficiencies. FUNCTIONAL ASSESSMENT: Functional assessment: no impairments noted. LEARNING NEEDS ASSESSMENT: The learning needs assessment revealed no barriers. FALL RISK ASSESSMENT: Fall risk assessment completed. No risk factors identified. SKIN INTEGRITY ASSESSMENT: Skin integrity risk assessment completed. No skin integrity risk identified. --:12/21/19 Yessica Peña R.N. Interventions Identification band on patient. To treatment room. --:12/21/19 Yessica Peña R.N.PHYSICAL ASSESSMENTGENERAL / NEURO / PSYCH: Alert. Oriented X 4. Appears in no acute distress.HEENT: Mucous membranes are pink.RESPIRATORY: Respirations not labored. Breath sounds within normal limits.CVS: Normal sinus rhythm noted. Capillary refill less than 2 seconds.GI / : The patient has diarrhea (yellowish brown). This has occurred several times. Abdominaltenderness in the epigastric area. Bowel sounds within normal limits.SKIN: Skin is warm and dry. --:12/21/19 Yessica Peña R.N.NURSING PROGRESS NOTESPatient gowned. Reassurance given. Two patient identifiers checked. Call light placed in reach. Siderails up x 2. Bed placed in lowest position. Brakes of bed on. Patient ready for evaluation- ED physiciannotified. --:12/21/19 Yessica Peña R.N. 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 Saline lock flushed with 10 mL saline. --09:48 12/21/19Yessica Peña R.N.10:02 12/21/2019 Started bag #1 1000 mL IV Fluids IV NS; bolus of 1000 mL over 1 hour(s) via site #1 viaIV pump. Allergies verified and confirmed 5 rights. IV patency established. IV site checked: no pain,redness, or swelling. IV flushed thoroughly pre- and post- medication administration. Information reviewedwith patient including reason for taking this medication, signs of allergic reaction and precautions.Verbalizes understanding. --10:02 12/21/19 Yessica Peña R.N.10:02 12/21/2019 Zofran (Ondansetron HCl) IVP 4 mg given over 2 minute(s) via site #1. Allergies verifiedand confirmed 5 rights. IV patency established. IV site checked: no pain, redness, or swelling. IV flushedthoroughly pre- and post-medication administration. IVP given by RN. Information reviewed with patientincluding reason for taking this medication, signs of allergic reaction and precautions. Verbalizesunderstanding. --10:03 12/21/19 Yessica Peña R.N.10:03 12/21/2019 PROTONIX (Pantoprazole Sodium) IVP 40 mg given over 2 minute(s) via site #1.Allergies verified and confirmed 5 rights. IV patency established. IV site checked: no pain, redness, orswelling. IV flushed thoroughly pre- and post- medication administration. IVP given by RN. Informationreviewed with patient including reason for taking this medication, signs of allergic reaction and precautions.Verbalizes understanding. --10:03 12/21/19 Yessica Peña R.N.Patient ID band checked for patient name and birthdate: patient confirmed. Instructions provided to collectclean catch urine and patient verbalized understanding. Clean catch urine collected; sample sent to lab forurinalysis. Specimen labeled in the presence of the patient. --10:04 12/21/19 Yessica Peña R.N.Care transferred and report given (Eleanor). Patient not ready for evaluation. --10:17 12/21/19 Yessica Peña R.N.late entry - 10:00 12/21/19. ( resting comfortable at present). --10:23 12/21/19 Yessica Peña R.N.10:00 12/21/19. BP: 136/89. MAP: 104. HR: 79. RR: 18. O2 saturation: 99%. --10:23 12/21/19 Yessica Peña R.N.Patient transported to sonogram by wheelchair with IV, mask and tv technician. --10:24 12/21/19 Eleanor Mayfield R.N.Patient returned from sonogram by wheelchair with IV, mask and tv technician. --10:37 12/21/19 Eleanor Mayfield R.N.11:16 12/21/2019 Site #1 rem lawrence upon discharge. Catheter intact. Bandaid applied. --11:18 12/21/19Eleanor Mayifeld R.N.11:16 12/21/2019 IV Fluids IV NS via IV site #1 Discontinued: bag #1 discontinued upon discharge. Totalamount infused: 708 ml mL. IV patency established. IV site checked: no pain, redness, or swelling. IV 4 Clinical Report - Nurses [facility] Emergency Department [address] [place] [address] Phone #: flo- [phone] 12/21/2019 09:09 Patient: AUGIE SINGER Sex: F : 1990 Age: 29y flushed thoroughly. --11:18 12/21/19 Eleanor Mayfield R.N.DISPOSITION / DISCHARGE Departure time: 11:18 12/21/2019. Condition at departure: improved. No learning barriers present. Discharge instructions provided and reviewed with the patient. Reviewed warnings. Reviewed medication(s) side effects, precautions, dosing and course information. Prescription(s) sent electronically to pharmacy ([facility]). Reviewed referral to a primary care physician for followup. Patient verbalized understanding. Written instructions provided in Belgian. The patient was discharged by the physician. She was discharged home and unaccompanied at time of discharge. She left ambulatory and via private vehicle. Patient driving. --11:19 12/21/19 Eleanor Mayfield R.N. 11:20 12/21/19. BP: 140/90. HR: 75. RR: 18. O2 saturation: 100%. Temp: 99.3 F. Pain level now 05/26. --11:21 12/21/19 [facility] Tech, Romero, LAUREN Tech1.Locked/Released at 12/21/2019 11:22 by Eleanor Mayfield R.N. Name Value Range Interpretation Code Description Data Randa rce(s) Supporting Document(s) ID Date Data Source [id number] 12/21/2019 09:10:00 AM [facility] 1 Clinical Report - Physicians/Mid Levels [facility] Emergency Department [address] [place] [address] Phone #: ext- [phone] 12/21/2019 09:09 Patient: AUGIE SINGER Sex: F : 1990 Age: 29y Time Seen: 09:22 12/21/2019; initial patient contact. Arrived- By private vehicle. Historian- patient. Disposition decision: 11:10 12/21/2019.HISTORY OF PRESENT ILLNESS Chief Complaint: DIARRHEA. ABDOMINAL PAIN and NAUSEA. No recent travel. She has had moderate nausea and moderate, burning, intermittent abdominal pain. The pain is described as located in the epigastrium and associated with nausea and diarrhea. No vomiting, black stools, bloody stools, constipation or flank pain. No history of possible bad food exposure or change in routine. She has had diarrhea. This has occurred several times. It has been watery. No bloody or blood-tinged diarrhea. Has not recently been camping or on antibiotics. She has had contact with a sick individual. 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 They have had similar symptoms. This started yesterday and is still present. It has been waxing/waning. The illness is described as moderate. Similar symptoms previously. Patient has had similar symptoms occasionally. ( pt states has Hx of GERD and ran out of omeprazole). Recent medical care: Not recently seen/assessed.REVIEW OF SYSTEMSNo fever, muscle aches, difficulty with urination, dark urine or headache. No dizziness, sore throat, cough,chest pain or difficulty breathing. No excessive urination, skin rash, jaundice, back pain or faintingepisodes. No blurred vision. Denies current . All other systems reviewed and are negative.PAST HISTORYSee nurses notes. Problems: Atypical Chest Pain. Heart Murmur. GERD. Additional Surgeries: no known surgeries. Medications: Pepcid Oral (Tablet 20 mg), daily. Allergies: None. 2 Clinical Report - Physicians/Mid Levels [facility] Emergency Department [address] [place] [address] Phone #: ext- [phone] 12/21/2019 09:09 Patient: AUGIE SINGER Sex: F : 1990 Age: 29ySOCIAL HISTORYNever smoker. No alcohol use or drug use.ADDITIONAL NOTESThe nursing notes have been reviewed with agreement regarding the chief complaint, HPI, ROS, PMH andpatient medications and allergies.PHYSICAL EXAMVital Signs: 12/21/2019 09:11 BP: 161/84. MAP: 109. HR: 81. RR: 18. O2 saturation: 100%. Temp: 97.8F. Pain level now: 07/26. Have been reviewed. Oxygen saturation normal.Appearance: Alert. Oriented X3. No acute distress. Anxious.Eyes: Pupils equal, round and reactive to light. Eyes normal inspection.ENT: Ears normal. Nose normal. Pharynx normal.Neck: Normal inspection. Neck supple.CVS: Normal heart rate and rhythm. Heart sounds normal. Pulses normal.Respiratory: No respiratory distress. Painless inspiration. Breath sounds normal.Abdomen: Soft. Mild tenderness in the right upper quadrant and epigastric area. Positive Lacey's sign(Lacey's equivocal). No guarding or rebound tenderness. Bowel sounds normal. No organomegaly.No mass. Femoral pulses equal.Back: Normal inspection. No CVA tenderness.Skin: Skin warm and dry. Normal skin color. No r katy. Normal skin turgor.Extremities: Extremities exhibit normal ROM. No lower extremity edema.Neuro: Oriented X 3. No motor deficit. No sensory deficit. Reflexes normal.LABS, X-RAYS, AND EKGAbdominal Sonogram: Normal study. Study included the gallbladder. The study was interpreted by theradiologist. Interpretation time: 10:42 12/21/2019.Laboratory Tests: Laboratory tests have been ordered, with results reviewed and considered in themedical decision making process. CBC w Diff: (AME: 12/21/2019 10:04) ( MsgRcvd 12/21/2019 10:37) Final results Test Result Flag Units (Reference) CBC W/AUTOMATED DIFF COMPLETE BLOOD COUNT WBC 10.6 10/uL (4.2 - 11.0) RBC 4.34 10/uL (4.20 - 5.40) HEMOGLOBIN 12.7 g/dL (12.0 - 16.0) HEMATOCRIT 37.8 % (37.0 - 47.0) MCV 87.1 fL (81.0 - 101) MCH 29.3 pg (27.0 - 34.0) MCHC 33.6 g/dL (31.0 - 36.0) RDW 14.0 % (11.5 - 14.5) PLATELETS 292 10/uL (150 - 450) MPV 10.6 H fL (7.4 - 10.4) NEUT 82.3 H % (37.0 - 80.0) LYMPH 10.3 L % (25.0 - 40.0) MONO 6.1 % (3.0 - 8.0) EOS 0.3 % (0.0 - 7.0) BASO 0.7 % (0.0 - 2.5) 3 Clinical Report - Physicians/Mid Levels [facility] Emergency Department [address] [place] [address] Phone #: ext- [phone] 12/21/2019 09:09 Patient: AUGIE SINGER Sex: F : 1990 Age: 29y %IG 0.3 H % (0.0 - 0.0) %NRBC 0.0 % (0.0 - 0.0) #NEUT 8.70 H 10/uL (2.00 - 6.90) #LYMPH 1.09 10/uL (0.60 - 3.40) #MONO 0.64 10/uL (0.00 - 0.90) #EOS 0.03 10/uL (0.00 - 0.70) #BASO 0.07 10/uL (0.00 - 0.20) #IG 0.03 10/uL (0.00 - 0.10) #NRBC 0.00 10/uL (0.00 - 0.00) MANUAL DIFF NOT INDICATED RBC MORPH NOT INDICATEDCMP: (AME: 12/21/2019 10:04) ( MsgRcvd 12/21/2019 10:37) Final results Test Result Flag Units (Reference) COMPREHENSIVE METABOLIC PANEL COMPREHENSIVE METABOLIC PANEL SODIUM 135 mEq/L (134 - 153) POTASSIUM 4.2 mEq/L (3.6 - 5.0) CHLORIDE 102 mEq/L (98 - 107) CO2 28 MEQ/L (22 - 30) GLUCOSE 89 MG/DL (65 - 110) BUN 6 L MG/DL (7 - 21) CREATININE 0.6 L MG/DL (0.7 - 1.5) BUN/CREAT 10 (8 - 27) TOTAL PROTEIN 7.3 G/DL (6.3 - 8.2) ALBUMIN 4.2 G/DL (3.9 - 5.0) GLOBULIN 3.1 GM/DL (2.4 - 3.2) A/G RATIO 1.4 (0.8 - 2.0) CALCIUM 9.4 MG/DL (8.4 - 10.2) TOTAL BILI 0.8 MG/DL (0.2 - 1.3) ALKALINE PHOS 80 U/L (38 - 126) SGOT/AST 18 U/L (5 - 40) SGPT/ALT 18 U/L (7 - 56) ANION GAP 5.0 L mmol/L (8.0 - 16.0) AGE 29 yrs NON-AA GFR >60 mL/min AFR AMER GFR >60 mL/min Male GFR Interprentation 20-49 yrs >60 mL/min Qckeqy85-49 yrs >56 mL/min Normal 60-69 yrs >49 mL/min Normal 70-79yrs>42 mL/min Normal 80 and above >35 mL/min Normal Female GFRInterpretation 20-39 yrs >60 mL/min Normal 40-49 yrs >58 mL/minNormal 50-59 yrs >51 mL/min Normal 60-69 yrs >45 mL/min Cwwnvm25-20 yrs >39 mL/min Normal 80 and above >32 mL/min NormalLipase: (AME: 12/21/2019 10:04) ( MsgRcvd 12/21/2019 10:36) Final results Test Result Flag Units (Reference) LIPASE 16 U/L (13 - 60)Urinalysis: (AME: 12/21/2019 10:04) ( MsgRcvd 12/21/2019 10:18) Final results Test Result Flag Units (Reference) URINALYSIS URINALYSIS SOURCE R COLOR yellow (NORMAL: Yello CLARITY Clear (NORMAL: Clear SPEC GRAVITY 1.015 (1.001 - 1.030 4 Clinical Report - Physicians/Mid Levels [facility] Emergency Department [address] [place] [address] Phone #: ext- [phone] 12/21/2019 09:09 Patient: AUGIE SINGER Sex: F : 1990 Age: 29y pH 8 (5 - 9) GLUCOSE NORM (NORMAL: Negat BILIRUBIN NEG (NORMAL: Negat KETONE NEG (NORMAL: Negat PROTEIN NEG (NORMAL: Negat NITRITE NEG (NORMAL: Negat BLOOD NEG (NORMAL: Negat LEUK EST NEG (NORMAL: Negat UROBILINOGEN NOR (less than 1.0 MICROSCOPIC Not Indicate Beta-HCG, Qual Serum: (AME: 12/21/2019 10:04) ( MsgRcvd 12/21/2019 11:02) Final results Test Result Flag Units (Reference) HCG SERUM QUAL NEGATIVE (NORMAL: NEGAT HCG SERUM QL REENTER NEGATIVE (NORMAL: NEGAT { KIT LOT # [id number] ){ KIT EXP DATE 11.21.20 ){ PROCEDURAL CONTROL VALID ) US Gall Bladder: (AME: 12/21/2019 09:34) ( MsgRcvd 12/21/2019 10:44) In Progress US GALLBLADDER Reason(s): Nausea w Vomiting TRANSPORTATION: WC IV? O2? Oxygen?(No) Room: ED.PROGRESS AND PRO CEDURESCourse of Care: 11:07 12/21/19. workup all in and reviewed and nml, as well as nml GB US; pt doingmuch better, abdomen softer; pt has probable viral GE on GERD and needs refill of PPI; will d/c home winstructions, pt understands and agrees; pt has GI MD in [place] and will f/u w him for upper endoscopyas needed. Patient counseled in person regarding the patient's stable condition, test results, diagnosis and need for follow-up. Patient agrees with plan of care. Disposition: Condition: good and stable. Discharge decision based on the following: patient's condition is stable; patient's condition is improved; patient is ambulatory; patient is active; patient drinking fluids; patient eating; patient's pain is controlled; patient's exam is improved; no abnormal test results; improving condition on multiple repeat evaluations; social support is good; transportation is available; follow-up is available; clinical impression is consistent with outpatient treatment.CLINICAL IMPRESSION Gas troesophageal reflux disease. No esophagitis. Acute norovirus gastroenteritis. 5 Clinical Report - Physicians/Mid Levels [facility] Emergency Department [address] [place] [address] Phone #: ext- [phone] 12/21/2019 09:09 ------ Patient: AUGIE SINGER Sex: F : 1990 Age: 29yINSTRUCTIONS Drink plenty of fluids. Avoid alcohol and NSAIDS. NSAIDS include aspirin, ibuprofen (Advil) and naproxen (Aleve). Avoid fatty, fried/greasy, lactose-containing (such as milk, cheese and ice cream), salty and spicy foods. No alcohol. Do not smoke. Warnings: Further evaluation is necessary in order to conduct further tests (GI specialty). It is very important to follow up with a healthcare provider. GENERAL WARNINGS: Return or contact your physician immediately if your condition worsens or changes unexpectedly, if not improving as expected, or if other problems arise. SPECIFICALLY, return if you develop pain in the abdomen, pelvis, back or shoulder, fever, vomiting, the inability to keep fluids down, blood in vomitus, blood in diarrhea, fainting or ligh theadedness. Your Current Medications: Your current home medications have been reviewed. CONTINUE TAKING THE FOLLOWING MEDICATIONS: Pepcid Oral : Tablet 20 mg, daily. Prescription Medications: Protonix 40 mg tablet,delayed release Take 1 tablet once a day for 30 days -- Dispense 30 tablet. Refills: 1. Substitution permitted. Pharmacy [facility] [phone] ; [place] [address]. . Zofran 4 mg tablet Take 1 tablet four times a day as needed for 4 days -- Dispense 16 tablet. Refills: 0. Substitution permitted. [facility] [phone] ; [place] [address]. FaxNumber: . Follow-up: Return to the emergency department as needed. Follow up with your healthcare provider in three days even if well. Call for an appointment. Reason for referral: evaluation and treatment. Summary of care provided to patient via paper. Follow up with a vamp marker in five days even if well. Call for an appointment. Reason for referral: evaluation, treatment and upper endoscopy as needed. Summary of care provided to patient via paper. Understanding of the discharge instructions verbalized by patient. Expected course of illness, discharge instructions, activity level, diet, prescriptions x2, follow-up appointment and risks and benefits of treatment reviewed with patient and understanding verbalized. Agrees to plan of care.(Electronically signed by Jj Rios M.D. 12/21/2019 11:25) 6Clinical Report - Physicians/Mid Levels [facility] Emergency Department [address] [place] [address] Phone #: [phone] 12/21/2019 09:09 Patient: AUGIE SINGER Sex: F : 1990 Age: 29y Name Value Range Interpretation Code Description Data Randa rce(s) Supporting Document(s) ID Date Data Source [id number] 12/21/2019 10:59:00 AM EST [facility] Name Value Range Interpretation Code Description Data Randa rce(s) Supporting Document(s) HCG SERUM QUAL NEGATIVE NORMAL: NEGATIVE [facility] HCG SERUM QL REENTER NEGATIVE NORMAL: NEGATIVE [facility] { KIT LOT # [id number] ){ KIT EXP DATE 11.21.20 ){ PROCEDURAL CONTROL VALID ) ID Date Data Source [id number] 12/21/2019 10:37:00 AM EST [facility] Name Value Range Interpretation Code Description Data Randa rce(s) Supporting Document(s) COMPREHENSIVE METABOLIC PANEL [facility] COMPREHENSIVE METABOLIC PANEL Sodium [Moles/volume] in Serum or Plasma 135 mEq/L 134 - 153 [facility] Potassium [Moles/volume] in Serum or Plasma 4.2 mEq/L 3.6 - 5.0 [facility] Chloride [Moles/volume] in Serum or Plasma 102 mEq/L 98 - 107 [facility] Carbon dioxide, total [Moles/volume] in Serum or Plasma 28 MEQ/L 22 - 30 [facility] Glucose [Mass/volume] in Serum or Plasma 89 MG/DL 65 - 110 [facility] BUN 6 MG/DL 7 - 21 L [facility] Creatinine [Mass/volume] in Serum or Plasma 0.6 MG/DL 0.7 - 1.5 L [facility] BUN/CREAT 10 8 - 27 [facility] Protein [Mass/volume] in Serum or Plasma 7.3 G/DL 6.3 - 8.2 [facility] Albumin [Mass/volume] in Serum or Plasma 4.2 G/DL 3.9 - 5.0 [facility] Globulin [Mass/volume] in Serum by calculation 3.1 GM/DL 2.4 - 3.2 [facility] A/G RATIO 1.4 0.8 - 2.0 [facility] Calcium [Mass/volume] in Serum or Plasma 9.4 MG/DL 8.4 - 10.2 [facility] Bilirubin.total [Mass/volume] in Serum or Plasma 0.8 MG/DL 0.2 - 1.3 [facility] Alkaline phosphatase [Enzymatic activity/volume] in Serum or Plasma 80 U/L 38 - 126 [facility] Aspartate aminotransferase [Enzymatic activity/volume] in Serum or Plasma 18 U/L 5 - 40 [facility] Alanine aminotransferase [Enzymatic activity/volume] in Seru m or Plasma 18 U/L 7 - 56 [facility] Anion gap 3 in Serum or Plasma 5.0 mmol/L 8.0 - 16.0 L [facility] AGE 29 yrs [facility] NON-AA GFR >60 mL/min [facility] ital AFR AMER GFR >60 mL/min [facility] Ho spital Male GFR In terprentation 20-49 yrs >60 mL/min Normal 50-59 yrs >56 mL/min Normal 60-69 yrs >49 mL/min Normal 70-79yrs >42 mL/min Normal 80 and above >35 mL/min Normal Female GFR Interpretation 20-39 yrs >60 mL/min Normal 40-49 yrs >58 mL/min Normal 50-59 yrs >51 mL/min Normal 60-69 yrs >45 mL/min Normal 70-79 yrs >39 mL/min Normal 80 and above >32 mL/min Normal ID Date Data Source [id number] 12/21/2019 10:36:00 AM EST [facility] Name Value Range Interpretation Code Description Data Randa rce(s) Supporting Document(s) CBC W/AUTOMATED DIFF [facility] COMPLETE BLOOD COUNT Leukocytes [#/volume] in Blood by Automated count 10.6 10^3/uL 4.2 - 11.0 [facility] Erythrocytes [#/volume] in Blood by Automated count 4.34 10^6/uL 4. 20 - 5.40 [facility] Hemoglobin [Mass/volume] in Blood 12.7 g/dL 12.0 - 16.0 [facility] Hematocrit [Volume Fraction] of Blood by Automated count 37.8 % 3 7.0 - 47.0 [facility] Erythrocyte mean corpuscular volume [Entitic volume] by Auto mated count 87.1 fL 81.0 - 101 [facility] Erythrocyte mean corpuscular hemoglobin [Entitic mass] by Automated count 29.3 pg 27.0 - 34.0 [facility] Erythrocyte mean corpuscular hemoglobin concentration [Mass/volume] by Automated count 33.6 g/dL 31.0 - 36.0 [facility] Erythrocyte distribution width [Ratio] by Automated count 14.0 % 11.5 - 14.5 [facility] Platelets [#/volume] in Blood by Automated count 292 10^3/uL 150 - 45 0 [facility] Platelet mean volume [Entitic volume] in Blood by Automated count 10.6 fL 7.4 - 10.4 H [facility] Neutrophils/100 leukocytes in Blood by Automated count 82.3 % 37. 0 - 80.0 H [facility] Lymphocytes/100 leukocytes in Blood by Manual count 10.3 % 25.0 - 40.0 L [facility] Monocytes/100 leukocytes in Blood by Automated count 6.1 % 3.0 - 8.0 [facility] Eosinophils/100 leukocytes in Blood by Automated count 0.3 % 0.0 - 7.0 [facility] Basophils/100 leukocytes in Blood by Automated count 0.7 % 0.0 - 2.5 [facility] %IG 0.3 % 0.0 - 0.[address] [facility] %NRBC 0.0 % 0.0 - 0.0 [facility] Neutrophils [#/volume] in Blood by Automated count 8.70 10^3/uL 2.00 - 6.90 H [facility] Lymphocytes [#/volume] in Blood by Automated count 1.09 10^3/uL 0.60 - 3.40 [facility] Monocytes [#/volume] in Blood by Automated count 0.64 10^3/uL 0.00 - 0.90 [facility] Eosinophils [#/volume] in Blood by Automated count 0.03 10^3/uL 0.00 - 0.70 [facility] Basophils [#/volume] in Blood by Automated count 0.07 10^3/uL 0.00 - 0.20 [facility] #IG 0.03 10^3/uL 0.00 - 0.10 [facility] ospital #NRBC 0.00 10^3/uL 0.00 - 0.00 [facility] ospital MANUAL DIFF NOT INDICATED [facility] RBC MORPH NOT INDICATED [facility] ID Date Data Source [id number] 12/21/2019 10:36:00 AM EST [facility] Name Value Range Interpretation Code Description Data Randa rce(s) Supporting Document(s) Lipase [Enzymatic activity/volume] in Serum or Plasma 16 U/L 13 - 60 [facility] ID Date Data Source [id number] 12/21/2019 10:17:00 AM [facility] Name Value Range Interpretation Code Description Data Randa rce(s) Supporting Document(s) URINALYSIS [facility] steve URINALYSIS SOURCE R [facility] COLOR yellow NORMAL: Yellow [facility] ospital CLARITY Clear NORMAL: Clear [facility] spital Specific gravity of Urine by Test strip 1.015 1.001 - 1.030 [facility] pH 8 5 - 9 [facility] Glucose [Mass/volume] in Urine by Test strip NORM NORMAL: Negat [facility] Bilirubin.total [Presence] in Urine by Test strip NEG NORMAL: Negative [facility] Ketones [Presence] in Urine by Test strip NEG NORMAL: Negative [facility] Protein [Mass/volume] in Urine by Test strip NEG NORMAL: Negat [facility] Nitrite [Presence] in Urine by Test strip NEG NORMAL: Negative [facility] BLOOD NEG NORMAL: Negative [facility] Leukocyte esterase [Presence] in Urine by Test strip NEG MAYRA L: Negative [facility] Urobilinogen [Mass/volume] in Urine by Test strip NOR less meena n 1.0 mg/dL [facility] MICROSCOPIC Not Indicate [facility] ID Date Data Source [id number] 11/14/2019 10:15:00 AM EDT [facility] ([facility]) Name Value Range Interpretation Code Description Data Randa rce(s) Supporting Document(s) White Blood Count 11.0 4.0-10.0 [facility] ([facility] Red Blood Count 4.05 4.00-5.40 [facility] ([facility]) Platelets 281 172-450 [facility] Hematocrit 35.3 [facility] ([facility]) Hemoglobin 11.7 [facility] ([facility]) ID Date Data Source [id number] 11/14/2019 10:15:00 AM EDT [facility] ([facility]) Name Value Range Interpretation Code Description Data Randa rce(s) Supporting Document(s) Thyroxine (T4) free [Mass/volume] in Serum or Plasma 3.1 [facility] ([facility]) Triiodothyronine resin uptake (T3RU) in Serum or Plasma 37 [facility] ([facility]) Thyroxine (T4) [Mass/volume] in Serum or Plasma 8.4 [facility] ([facility]) Thyroid Stimulating Hormone 1.770 ME [facility] ([facility]) ID Date Data Source [id number] 11/14/2019 10:15:00 AM EDT [facility] ([facility]) Name Value Range Interpretation Code Description Data Randa rce(s) Supporting Document(s) Troponin Laboratory test result [facility] ([facility]) ID Date Data Source [id number] 11/14/2019 10:15:00 AM EDT [facility] ([facility]) Name Value Range Interpretation Code Description Data Randa rce(s) Supporting Document(s) CPK-MB Laboratory test result [facility] ([facility]) Creatine kinase [Enzymatic activity/volume] in Serum or Plasma 85 [facility] ([facility]) ID Date Data Source [id number] 11/14/2019 10:15:00 AM EDT [facility] ([facility]) Name Value Range Interpretation Code Description Data Randa rce(s) Supporting Document(s) Glucose 108 70-100 [facility] Blood Urea Nitrogen 9 7-18 [facility] ([facility]) Creatinine 0.80 0.6-1.0 [facility] ([facility]) Sodium 137 136-145 [facility] Potassium 4.0 3.5-5.1 [facility] Calcium 9.2 8.2-9.6 [facility] Chloride 107 98-107 [facility] Carbon Dioxide 27 21-32 [facility] ([facility]) Glomerular filtration rate/1.73 sq M.pre dicted [Volume Rate/Area] in Serum or Plasma by Creatinine-based formula (MDRD) Laboratory test result [facility] ([facility]) Procedure Social History Code Duration Value Status Description Data Source(s ) Smoking 11/18/2020 03:02:00 PM EDT Denies Ever Smoked complete d Denies Ever Smoked [facility] Smoking 10/08/2020 12:00:00 AM EDT Patient has never smoked co mpleted Patient has never smoked [facility] ([facility]) Smoking 09/28/2020 12:00:00 AM EDT Patient has never smoked co mpleted Patient has never smoked [facility] ([facility]) Smoking 02/27/2020 12:00:00 AM EST Never Smoked Cigarettes com pleted Never Smoked Cigarettes [facility] ([facility], ) Vital Signs ID Date Data Source [id number] Name Value Range Interpretation Code Description Data Source(s) Systolic blood pressure 132 mm[Hg] Normal (applies t o non-numeric results) 132 mm[Hg] [facility] Diastolic blood pressure 73 mm[Hg] Normal (applies to non-numeric results) 73 mm[Hg] [facility] Body mass index (BMI) [Ratio] 40.7 kg/m2 No rmal (applies to non-numeric results) 40.7 kg/m2 [facility] Heart rate 81 min Normal (applies to non-numeric resul ts) 81 min [facility] Deprecated Oxygen saturation in Capillary blood by Oximetry 100 % Normal (applies to non-numeric results) 100 % [facility] Respiratory rate 14 min Normal (applies to non-numeric results) 14 min [facility] Body height 66 [in_i] 66 [in_i] [facility] ([facility], [facility]) 5'6" Systolic blood pressure 145 mm[Hg] 145 mm[Hg] M [facility] ([facility]) Diastolic blood pressure 90 mm[Hg] 90 mm[Hg] [facility] ([facility]) Heart rate 84 /min 84 /min [facility] ([facility], [facility]) Respiratory rate 18 /min 18 /min [facility] ( [facility]) Oxygen saturation in Arterial blood by Pulse oximetry 98 % 98 % [facility] ([facility], [facility]) Body temperature 97.8 [degF] 97.8 [degF] [facility] ([facility], [facility]) Body weight 270.00 [lb_av] 270.00 [lb_av] [facility] T ([facility], [facility]) Body mass index (BMI) [Ratio] 43.6 kg/m2 43.6 k g/m2 [facility] ([facility], [facility]) Body weight 274.00 [lb_av] 274.00 [lb_av] [facility] T ([facility]) Body height 67 [in_i] 67 [in_i] [facility]) 5'7" Body mass index (BMI) [Ratio] 42.9 kg/m2 42.9 k g/m2 [facility] ([facility]) Systolic blood pressure--sitting 124 mm[Hg] 124 mm[Hg] [facility] ([facility]) Ra, large cuff Diastolic blood pressure--sitting 76 mm[Hg] 76 mm[Hg] [facility] ([facility]) Ra, large cuff Respiratory rate 17 /min 17 /min [facility] ( [facility], [facility]) Heart rate 92 /min 92 /min [facility] ([facility], [facility]) Oxygen saturation in Arterial blood by Pulse oximetry 99 % 99 % [facility] ([facility], [facility]) Body temperature 98.4 [degF] 98.4 [degF] [facility] ([facility], [facility]) Body height 67 [in_i] 67 [in_i] [facility] ([facility]) 5'7" Body mass index (BMI) [Ratio] 42.3 kg/m2 42.3 k g/m2 [facility] ([facility], [facility]) Body weight 270.00 [lb_av] 270.00 [lb_av] [facility] T ([facility], [facility]) Systolic blood pressure 140 mm[Hg] 140 mm[Hg] M EDENT ([facility], [facility]) Diastolic blood pressure 89 mm[Hg] 89 mm[Hg] [facility] ([facility], [facility]) Respiratory rate 18 /min 18 /min [facility] ( [facility], [facility]) Oxygen saturation in Arterial blood by Pulse oximetry 98 % 98 % [facility] ([facility], [facility]) Body temperature 98.0 [degF] 98.0 [degF] [facility] ([facility], [facility]) Body weight 270.00 [lb_av] 270.00 [lb_av] [facility] T ([facility], [facility]) Body height 67 [in_i] 67 [in_i] [facility] ([facility], [facility]) 5'7" Body mass index (BMI) [Ratio] 42.3 kg/m2 42.3 k g/m2 [facility] ([facility], [facility]) Systolic blood pressure 132 mm[Hg] 132 mm[Hg] M EDENT ([facility], [facility]) Diastolic blood pressure 88 mm[Hg] 88 mm[Hg] [facility] ([facility], [facility]) Heart rate 88 /min 88 /min [facility] ([facility], [facility]) Body weight 285.00 [lb_av] 285.00 [lb_av] [facility] T ([facility]) Systolic blood pressure--sitting 134 mm[Hg] 134 mm[Hg] [facility] ([facility]) Omron, large cuff/Ra Body height 67 [in_i] 67 [in_i] [facility] ([facility]) 5'7" Body mass index (BMI) [Ratio] 44.6 kg/m2 44.6 k g/m2 [facility] ([facility]) Heart rate 78 /min 78 /min [facility] ([facility]) Diastolic blood pressure--sitting 93 mm[Hg] 93 mm[Hg] [facility] ([facility]) Omron, large cuff/Ra Body weight 288.00 [lb_av] 288.00 [lb_av] [facility] T ([facility]) Body temperature 97.2 [degF] 97.2 [degF] [facility] ([facility]) Diastolic blood pressure 81 mm[Hg] 81 mm[Hg] [facility] ([facility]) Body height 67 [in_i] 67 [in_i] [facility] ([facility]) 5'7" Systolic blood pressure 124 mm[Hg] 124 mm[Hg] M EDENT ([facility]) Heart rate 71 /min 71 /min [facility]) Body mass index (BMI) [Ratio] 45.1 kg/m2 45.1 k g/m2 [facility] ([facility]) Body weight 130.637 kg 130.637 kg [facility] ([facility]) Systolic blood pressure 148 mm[Hg] 148 mm[Hg] M [facility] ([facility], [facility]) Heart rate 101 /min 101 /min [facility] ([facility], [facility]) Diastolic blood pressure 94 mm[Hg] 94 mm[Hg] [facility] ([facility], [facility]) Respiratory rate 16 /min 16 /min [facility] ( [facility], [facility]) Body temperature 98.8 [degF] 98.8 [degF] [facility] ([facility], [facility]) Body weight 270.00 [lb_av] 270.00 [lb_av] [facility] T ([facility], [facility]) Body mass index (BMI) [Ratio] 42.3 kg/m2 42.3 k g/m2 [facility] ([facility], [facility]) Oxygen saturation in Arterial blood by Pulse oximetry 99 % 99 % [facility] ([facility], [facility]) Body height 67 [in_i] 67 [in_i] [facility] ([facility], [facility]) 5'7" Body height 67 [in_i] 67 [in_i] [facility] ([facility], ) 5'7" [place] body weight 135 [lb_av] 135 [lb_av] [facility] T ([facility], ) ID Date Data Source [id number] 11/28/2020 08:16:41 AM [facility] Name Value Range Interpretation Code Description Data Source(s) WEIGHT RECORDED 259.26 lb 259.26 lb [facility] Body height Measured 65.98 in 65.98 in [facility] WEIGHT RECORDED 260 lb 260 lb [facility] Body height Measured 66 in 66 in [facility] ID Date Data Source [id number] 09/18/2020 10:09:52 AM EDT [facility] Name Value Range Interpretation Code Description Data Source(s) WEIGHT RECORDED 270 lb 270 lb [facility] Body height Measured 66 in 66 in [facility]
[2020-12-06] MEDS ORDERED: NS 1,000 ML IV ONE (10:50)
[2020-12-06 10:52] LABS: BASO # 0.1 10^3/uL (0.0-0.2); BASO % 0.7 % (0.0-1.0); EOS # 0.1 10^3/uL (0.0-0.5); EOS % 1.4 % (0.0-3.0); HEMATOCRIT 39.6 % (36.0-47.0); HEMOGLOBIN 12.9 g/dl (12.0-15.5); LYMPH # 1.6 10^3/uL (1.5-5.0); LYMPH % 17.6 % (24.0-44.0); MEAN CORPUSCULAR HEMOGLOBIN 28.4 pg (27.0-33.0); MEAN CORPUSCULAR HGB CONC 32.6 g/dl (32.0-36.5); MEAN CORPUSCULAR VOLUME 87.2 fl (80.0-96.0); MONO # 0.7 10^3/uL (0.0-0.8); MONO % 7.2 % (2.0-8.0); NEUTROPHILS # 6.6 10^3/uL (1.5-8.5); NEUTROPHILS % 72.7 % (36.0-66.0); PLATELET COUNT, AUTOMATED 319 10^3/uL (150-450); RED BLOOD COUNT 4.54 10^6/uL (4.00-5.40); WHITE BLOOD COUNT 9.1 10^3/uL (4.0-10.0)
[2020-12-06 11:24] LABS: ALBUMIN 3.4 GM/DL (3.2-5.2); ALT/SGPT 18 U/L (12-78); BILIRUBIN,TOTAL 0.6 MG/DL (0.2-1.0); BLOOD UREA NITROGEN 7 MG/DL (7-18); CARBON DIOXIDE LEVEL 29 MEQ/L (21-32); CHLORIDE LEVEL 107 MEQ/L (98-107); CK-MB VALUE MASS < 1.0 NG/ML (<3.6); CPK CREATINE PHOSPHOKINASE 51 U/L (26-192); CREATININE FOR GFR 0.78 MG/DL (0.55-1.30); GLOMERULAR FILTRATION RATE > 60.0 (>60); GLUCOSE, FASTING 83 MG/DL (70-100); MAGNESIUM LEVEL 1.8 MG/DL (1.8-2.4); MB/CK RELATIVE INDEX 1.96 (< OR =4); POTASSIUM SERUM 4.6 MEQ/L (3.5-5.1); SODIUM LEVEL 139 MEQ/L (136-145); TOTAL PROTEIN 7.5 GM/DL (6.4-8.2); TROPONIN I < 0.02 NG/ML (< 0.10)
[2020-12-06] MEDS ORDERED: ISOVUE-370 76% 100ML VIAL As Ordered ONE (12:04)
--- NOTE | 2020-12-06 12:32 | REPVR ---
PROCEDURE INFORMATION: Exam: CT Head Without Contrast Exam date and time: 12/06/2020 11:58 AM Age: 30 years old Clinical indication: Syncope and collapse TECHNIQUE: Imaging protocol: Computed tomography of the head without contrast. Radiation optimization: All CT scans at this facility use at least one of these dose optimization techniques: automated exposure control; mA and/or kV adjustment per patient size (includes targeted exams where dose is matched to clinical indication); or iterative reconstruction. COMPARISON: CT Head without contrast 10/10/2020 6:22 AM FINDINGS: Brain: Normal. No hemorrhage. Unremarkable white matter. No mass effect. Cerebral ventricles: No ventriculomegaly. Paranasal sinuses: Visualized sinuses are unremarkable. No fluid levels. Mastoid air cells: Visualized mastoid air cells are well aerated. Bones/joints: Unremarkable. No acute fracture. Soft tissues: Unremarkable. IMPRESSION: No acute intracranial abnormality. No significant change from the prior. Electronically signed by: Bran Gonzalez On 12/06/2020 12:32:25 PM
--- NOTE | 2020-12-06 12:32 | REP ---
INDICATION: Syncope COMPARISON: Multiple the latest 09/18/[address] chest angiography TECHNIQUE: CT angiography of the chest attention pulmonary arteries after the intravenous administration of 75 cc Isovue 370. FINDINGS: There is less than optimal visualization of the pulmonary arterial vasculature. This is secondary to injection timing and an admixture of blood and contrast. Small and even moderate-sized emboli could be obscured. No gross filling defect is identified. No gross abnormality is seen involving the thoracic aorta. The imaged upper abdomen and imaged osseous structures are unchanged. There is no mediastinal or hilar adenopathy. There no pleural or pericardial effusions. Evaluation of the lung lau shows no significant changes from the prior exam. No abnormal nodules, masses, or opacities have developed. IMPRESSION: 1. The exam is limited as described above. Consider follow-up. 2. Clear unchanged lung lau. <Electronically signed by Vikram Charles > 12/06/20 [id number]
--- NOTE | 2020-12-06 12:44 | REP ---
INDICATION: Chest pain. COMPARISON: 11/17/2020. TECHNIQUE: Single portable AP view of the chest was performed. FINDINGS: There is no acute infiltrate or pulmonary edema. Lungs are clear. The heart is not significantly enlarged. The mediastinal silhouette is unremarkable. The visualized osseous structures are intact. IMPRESSION: No acute pulmonary disease. <Electronically signed by Milton Barakat > 12/06/20 [id number]
[2020-12-06 14:07] VITALS: BP 151/87
--- NOTE | 2020-12-06 19:04 | ECGEPIP ---
[facility] - ED Test Date: 2020-12-06 Pat Name: AUGIE KAYE Department: Room: - Gender: Female [employer]: : 1990 Requested By: JEREMY Rivera Order Number: [id number] Reading MD: Sherine Mars Measurements Intervals [place] Rate: 84 P: 41 [place]: 154 QRS: 6 QRSD: 88 T: -7 QT: 366 QTc: 432 Interpretive Statements Normal sinus rhythm Minimal voltage criteria for LVH, may be normal variant ( R in aVL ) Nonspecific T wave abnormality increased rate 11/11/20 Electronically Signed on 12-06-2020 19:04:04 EDT by Sherine Mars
== END 2020-12-06 14:50 | disposition home or self-care (01) ==
LOC: M ED 09:41
DX: R55 Syncope and collapse (principal); K21.9 Gastro-esophageal reflux disease without esophagitis
CPT/HCPCS: 70450; 71045; 71275; 80053; 82550; 82553; 83735; 84443; 84484; 84702; 85025; 85379; 93005; 99285; Q9967

== ENCOUNTER → 2020-12-17 | Outpatient (CLI) | payer OTHER | LOC: M PLALAB 15:49 | PROVIDERS: ATTEND Student in an Organized Health Care Education/Training Program | DX: T78.1XXA Other adverse food reactions, not elsewhere classified, initial encounter (principal) ==

== ENCOUNTER 2020-12-30 22:38 | Emergency (ER) | payer OTHER ==
[~2020-12-30] VITALS: Ht 167.6 cm; Wt 128.6 kg
[2020-12-30 22:38] VITALS: BP 180/95
[2020-12-30] MEDS ORDERED: METF500T13 (22:44)
--- OUTSIDE RECORDS SUMMARY | 2020-12-30 22:45 | CCD | Continuity of Care Document ---
Author Author Karma HU M.D. Organization Unknown Address [address] [place] [address] Phone [phone] Problems Description No Information Available Social History Type Date Description Comments Sex Unknown Allergies and adverse reactions Description No Information Available Medications Description No Information Available Immunizations Description No Information Available Vital Signs Description No Information Available Results Description No Information Available Procedures Date Code Description Status 11/30/2020 11395 Office/Outpatient Established Mo d MDM 30-39 Min Completed 11/23/2020 40690 Magnetic Resonance Angiography N larry W/O Contrast Materials Completed 11/23/2020 06944 Magnetic Resonance Angiography N larry W/O Contrast Materials Completed 11/23/2020 18830 Magnetic Resonance Angiogtaphy H ead W/O Contrast Material(S) Completed 11/23/2020 62981 Magnetic Resonance Angiogtaphy H ead W/O Contrast Material(S) Completed 11/22/2020 87910 Office/Outpatient Established Mo d MDM 30-39 Min Completed 08/13/2020 28470 Office/Outpatient Established Mo d MDM 30-39 Min Completed 07/20/2020 42120 MRI Brain W/O Contrast Completed 07/20/2020 90234 MRI Brain W/O Contrast Completed 06/12/2020 84272 EEG Recording Awake & Asleep Com pleted 06/12/2020 29126 EEG Recording Awake & Asleep Com pleted Medical Devices Description No Information Available Encounters Type Date Location Provider Dx Diagnosis Office Visit 11/30/2020 10:15a Main office - [place] Katlyn Hu M.D. R55 Syncope and collapse R42 Dizziness and giddiness G70.00 Myasthenia gravis without (a cute) exacerbation M62.9 Disorder of muscle, unspecif ied R41.82 Altered mental status, unspe cified R26.89 Other abnormalities of gait and mobility Office Visit 11/22/2020 10:00a Main office - [place] Katlyn Hu M.D. R42 Dizziness and giddiness M62.81 Muscle weakness (generalized ) G70.00 Myasthenia gravis without (a cute) exacerbation R41.82 Altered mental status, unspe cified Office Visit 08/13/2020 7:30a Main office - [place] Katlyn Hu M.D. R42 Dizziness and giddiness I95.1 Orthostatic hypotension G44.209 Tension-type headache, unspe cified, not intractable R41.82 Altered mental status, unspe cified Assessments Date Code Description Provider 11/30/2020 R55 Syncope and collapse Katlyn barnes M.D. 11/30/2020 R42 Dizziness and giddiness Katlyn bellamy M.D. 11/30/2020 G70.00 Myasthenia gravis without (acute ) exacerbation Katlyn Hu M.D. 11/30/2020 M62.9 Disorder of muscle, unspecified Katlyn Hu M.D. 11/30/2020 R41.82 Altered mental status, unspecifi ed Katlyn Hu M.D. 11/30/2020 R26.89 Other abnormalities of gait and mobility Katlyn Hu M.D. 11/23/2020 G44.209 Tension-type headache, unspecifi [...] bellamy M.D. 11/22/2020 M62.81 Muscle weakness (generalized) Symone WinterD. 11/22/2020 G70.00 Myasthenia gravis without (acute ) exacerbation Katlyn Nazanin Hu 11/22/2020 R41.82 Altered mental status, unspecifi ed Katlyn HernandezSymone brionesDTiffani 08/13/2020 R42 Dizziness and giddiness Katlynus Valentina pinzonNazanin briones 08/13/2020 I95.1 Orthostatic hypotension Katlyn pinzonNazanin briones 08/13/2020 G44.209 Tension-type headache, unspecifi ed, not intractable Katlyn Fritz, M.DTiffani 08/13/2020 R41.82 Altered mental status, unspecifi ed Katlyn Nazanin Hu 07/20/2020 R41.82 Altered mental status, unspecifi ed Kristin Nazanin Hu 07/20/2020 R41.82 Altered mental status, unspecifi ed MRI 07/20/2020 I95.1 Orthostatic hypotension Kristin Goyal M.D. 07/20/2020 I95.1 Orthostatic hypotension MRI 07/20/2020 R26.89 Other abnormalities of gait and mobility Symone GuanDTiffani 07/20/2020 R26.89 Other abnormalities of gait and mobility MRI 06/12/2020 R41.82 Altered mental status, unspecifi ed Katlyn HernandezSymone brionesDTiffani 06/12/2020 R41.82 Altered mental status, unspecifi ed EEG 06/12/2020 R25.8 Other abnormal involuntary movem ents Katyln Hu M.D. 06/12/2020 R25.8 Other abnormal involuntary movem ents EEG Plan of Treatment Future Appointment(s):* 12/17/2020 10:00 am - aCrol Shanks M.D. at [facility] * 01/31/2021 8:15 am - Katlyn Hu M.D. at [facility] * 01/22/2021 9:45 am - EEG at [facility] Functional Status Description No Information Available Mental Status Description No Information Available Referrals Refer to Dr Reason for Referral Status Appt Date Created Carol Shanks M.D. Created [facility] [place] [address] [phone]
--- OUTSIDE RECORDS SUMMARY | 2020-12-30 22:47 | CCD ---
Author Author [facility] Organization [facility] Address Unknown Phone Unavailable Care Team Providers Care Computer Information Science Professor Name Role Phone Carla TOBIAS MD Unavailable [...] Camarena MD Unavailable Unavail able El-Dokla, Eric Ahmed Mohamed MD Unavailable Unavail able El-Dokla, Eric Boy Barreraamed Unavailable Unavail able El-Dokla, Eric Ahazalea Barreraamed MD Unavailable Unavail able El-Dokla, Eric Boy Mohamed MD Unavailable Unavail able El-Dokla, Eric Boy Mohamed MD Unavailable Unavail able El-Dokla, Eric Boy Barreraamed MD Unavailable Unavail able El-Dokla, Eric Ahmed Mohamed MD Unavailable Unavail able El-Dokla, Eric Ahmed Mohamed MD Unavailable Unavail able El-Dokla, Eric Ahmed Mohamed MD Unavailable Unavail able El-Dokla, Eric Ahmed Mohamed MD Unavailable Unavail able El-Dokla, Eric Ahmed Mohamed MD Unavailable Unavail able El-Dokla, Eric Ahmed Mohamed MD Unavailable Unavail able Kristin-Malak, A Avel [...] A Avel MD Unavailable Unavailable Molina, Marnie WIND TURBINE SHEET METAL WORKER Unavailable Unavailable Molina, Marnie WIND TURBINE SHEET METAL WORKER Unavailable Unavailable Moilna, Marnie WIND TURBINE SHEET METAL WORKER Unavailable Unavailable Molina, Marnie WIND TURBINE SHEET METAL WORKER Unavailable Unavailable Molina, Marnie WIND TURBINE SHEET METAL WORKER Unavailable Unavailable Molina, Marnie WIND TURBINE SHEET METAL WORKER Unavailable Unavailable Molina, Marnie WIND TURBINE SHEET METAL WORKER Unavailable Unavailable Molina, Marnie WIND TURBINE SHEET METAL WORKER Unavailable Unavailable Molina, Marnie WIND TURBINE SHEET METAL WORKER Unavailable Unavailable Molina, Marnie WIND TURBINE SHEET METAL WORKER Unavailable Unavailable Molina, Marnie WIND TURBINE SHEET METAL WORKER Unavailable Unavailable Molina, Marnie WIND TURBINE SHEET METAL WORKER Unavailable Unavailable Molina, Marnie WIND TURBINE SHEET METAL WORKER Unavailable Unavailable DIOGO BRADFORD MD Unavailable Unavailable DIOGO BRADFORD MD Unavailable Unavailable DIOGO BRADFORD MD Unavailable Unavailable DIOGO BRADFORD MD Unavailable Unavailable Seldes, F Anna PA-C Unavailable Unavailable Seldes, F Anna PA-C Unavailable Unavailable Seldes, F Nana PA-C Unavailable Unavailable Seldes, F Anna PA-C [...] Unavailable Unavailable Shelbie SÁNCHEZ MD Unavailable Unavailable SYSTEM IN, NOT PROVIDER Unavailable Unavailable TURRIN, JJ Unavailable Unavailable TURRIN, [...] Unavailable ANTECOL, Herb LUNA MD Unavailable Unavailable ANTECHerb DAVENPORT MD Unavailable Unavailable ANTECHerb DAVENPORT MD Unavailable Unavailable ANTECOLHerb MD Unavailable Unavailable ANTECOLHerb MD Unavailable Unavailable ANTECOLHerb MD Unavailable Unavailable ANTECOLHerb MD Unavailable Unavailable ANTECOLHerb MD Unavailable Unavailable ANTECOLHerb MD Unavailable Unavailable ANTECOLHerb MD Unavailable Unavailable ANTECOLHerb MD Unavailable Unavailable ANTECHerb DAVENPORT MD Unavailable Unavailable Lane Myers MD Unavailable Unavailable Lane Myers MD Unavailable Unavailable Lane Myers MD Unavailable Unavailable Lane Myers MD Unavailable Unavailable Lane Myers MD Unavailable Unavailable Lane Myers MD Unavailable Unavailable Lane Myers MD Unavailable Unavailable Lane Myers MD Unavailable Unavailable Lane Myers MD Unavailable Unavailable Lane Myers MD Unavailable Unavailable Lane Myers MD Unavailable Unavailable Lane Myers MD Unavailable Unavailable Lane Myers MD Unavailable Unavailable Lane Myers MD Unavailable Unavailable Lane Myers MD Unavailable Unavailable Lane Myers MD Unavailable Unavailable Lane Myers MD Unavailable Unavailable Lane Myers MD Unavailable Unavailable Lane Myers MD Unavailable Unavailable Lane Myers MD Unavailable Unavailable Lane Myers MD Unavailable Unavailable Lane Myers MD Unavailable Unavailable Lane Myers MD Unavailable Unavailable Lane Myers MD Unavailable Unavailable Lane Myers MD Unavailable Unavailable Ulices JIMENEZ MD Unavailable Unavailable Ulices JIMENEZ MD Unavailable Unavailable Ulices JIMENEZ MD Unavailable Unavailable Ulices JIMENEZ MD Unavailable Unavailable Ulices JIMENEZ MD Unavailable Unavailable Ulices JIMENEZ MD Unavailable Unavailable Ulices JIMENEZ MD Unavailable Unavailable Ulices JIMENEZ MD Unavailable Unavailable Stephanie RodriguezC Unavailable Unavailable Stephanie Rodriguez PA-C Unavailable Unavailable JenniferStephanie clinton PA-C Unavailable Unavailable [facility] Unavailable Unavailable Hudson, Raja Unavailable Unavailable Hudson, Raja Unavailable Unavailable Hudson, Raja Unavailable Unavailable Hudson, Raja Unavailable Unavailable Lane TENA MD Unavailable Unavailable Lane TENA MD Unavailable Unavailable Lane TENA MD Unavailable Unavailable CHANLIECCO, Lane MERLOS MD Unavailable Unavailable CHANLIECCO, Lane MERLOS MD Unavailable Unavailable CHANLIECCO, Lane MERLOS MD Unavailable Unavailable CHANLIECCO, Lane MERLOS MD Unavailable Unavailable CHANLIECCO, Laen MERLOS MD Unavailable Unavailable CHANLIECCO, Lane MERLOS MD Unavailable Unavailable CHANLIECCO, Lane MERLOS MD Unavailable Unavailable CHANLIECCO, Lane MERLOS MD Unavailable Unavailable ED, TEST DEFAULT Unavailable [...] Unavailable Unavailable Ulices Nielsen MD Unavailable Unavailable lUices Nielsen MD Unavailable Unavailable Ulices Nielsen MD [...] Unavailable Unavailable Cameron Walters MD Unavailable Unavailable McleanYash guthrie MD Unavailable Unavailable McleanYash guthrie MD Unavailable Unavailable McleanYash guthrie MD Unavailable Unavailable McleanYash guthrie MD Unavailable Unavailable McleanYash guthrie MD Unavailable Unavailable RING, K SOURAV [...] Unavailable RING, K SOURAV PA Unavailable Unavailable McleanYash guthrie MD Unavailable Unavailable McleanYash MD Unavailable Unavailable McleanYash MD Unavailable Unavailable Mclean, Ivayla MD Unavailable Unavailable Mclean, Ivayla MD Unavailable Unavailable Kristin-Malak, A Avel MD [...] A Avel MD Unavailable Unavailable Kristin-Malak, A Aevl MD Unavailable Unavailable Kristin-Malak, A Avel MD Unavailable Unavailable Kristin-Malak, A Avel MD Unavailable Unavailable Kristin-Malak, A Avel MD Unavailable Unavailable Kritsin-Malak, A Avel MD Unavailable Unavailable Kristin-Malak, A [...] Unavailable Kristin-Malak, A Avel MD Unavailable Unavailable Stephanie Baltazar MD Unavailable Unavailable Stephanie Baltazar MD Unavailable Unavailable Stephanie Baltazar MD Unavailable Unavailable Stephanie Baltazar MD Unavailable Unavailable Stephanie Baltazar MD Unavailable Unavailable Stephanie Baltazar MD Unavailable Unavailable Stephanie Baltazar MD Unavailable Unavailable Stephanie Baltazar MD Unavailable Unavailable Stephanie Baltazar MD Unavailable Unavailable Stephanie Baltazar MD Unavailable Unavailable Stephanie Baltazar MD Unavailable Unavailable Stephanie Baltazar MD Unavailable Unavailable Stephanie Baltazar MD Unavailable Unavailable Stephanie Baltazar MD Unavailable Unavailable Stephanie Baltazar MD Unavailable Unavailable Stephanie Baltazar MD Unavailable Unavailable Stephanie Baltazar MD Unavailable Unavailable Stephanie Baltazar MD Unavailable Unavailable Stephanie Baltazar MD Unavailable Unavailable Stephanie Baltazar MD Unavailable Unavailable Stephanie Baltazar MD Unavailable Unavailable Stephanie Baltazar MD Unavailable Unavailable Stephanie Baltazar MD Unavailable Unavailable Stephanie Baltazar MD Unavailable Unavailable Stephanie Baltazar MD Unavailable Unavailable Stephanie Baltazar MD Unavailable Unavailable Stephanie Baltazar MD Unavailable Unavailable Stephanie Baltazar MD Unavailable Unavailable Stephanie Baltazar MD Unavailable Unavailable Stephanie Baltazar MD Unavailable Unavailable Stephanie Baltazar MD Unavailable Unavailable Stephanie Baltazar MD Unavailable Unavailable Stephanie Baltazar MD Unavailable Unavailable Stephanie Baltazar MD Unavailable Unavailable Stephanie Baltazar MD Unavailable Unavailable Stephanie Baltazar MD Unavailable Unavailable Stephanie Baltazar MD Unavailable Unavailable Stephanie Baltazar MD Unavailable Unavailable Stephanie Baltazar MD Unavailable Unavailable Stephanie Baltazar MD Unavailable Unavailable Stephanie Baltazar MD Unavailable Unavailable Stephanie Baltazar MD Unavailable Unavailable Stephanie Baltazar MD Unavailable Unavailable Stephanie Baltazar MD Unavailable Unavailable Stephanie Baltazar MD Unavailable Unavailable Stephanie Baltazar MD Unavailable Unavailable Stephanie Baltazar MD Unavailable Unavailable Stephanie Baltazar MD Unavailable Unavailable Stephanie Baltazar MD Unavailable Unavailable Stephanie Baltazar MD Unavailable Unavailable Stephanie Baltazar MD Unavailable Unavailable Stephanie Baltazar MD Unavailable Unavailable Stephanie Baltazar MD Unavailable Unavailable Stephanie Baltazar MD Unavailable Unavailable Stephanie Baltazar MD Unavailable Unavailable Stephanie Baltazar MD Unavailable Unavailable Stephanie Baltazar MD Unavailable Unavailable Stephanie Baltazar MD Unavailable Unavailable Stephanie Baltazar MD Unavailable Unavailable JEET GRIDER Unavailable Unavailable Feola, T Linda PA Unavailable [...] BRADFORD, CLAUDETTE MD Unavailable Unavailable BRADFORD, CLAUDETTE CAASS Unavailable Unavailable BRDAFORD, CLAUDETTE CASAS Unavailable Unavailable BRADFORD, CLAUDETTE CASAS Unavailable Unavailable BRADFORD, CLAUDETTE CASAS Unavailable Unavailable BRADFORD, CLAUDETTE CASAS Unavailable Unavailable BRADFORD, CLAUDETTE CASAS Unavailable Unavailable BRADFORD, CLAUDETTE CASAS Unavailable Unavailable BRADFORD, CLAUDETTE CASAS Unavailable Unavailable BRADFORD, CLAUDETTE CASAS Unavailable Unavailable BRADFORD, CLAUDETTE CASAS Unavailable Unavailable BRADFORD, CLAUDETTE CASAS Unavailable Unavailable PHYSICIAN, PHYSICIAN ER Unavailable Unavailable [...] Campanaro, Mare Katherine PA Unavailable Unavailable MARNI HARO L JEET Unavailable Unavailable PHYSICIAN, ER Unavailable [...] is protected by Article 27-F of the [facility] Public Health law. If you continue you may have access to information: Regarding HIV / AIDS; Provided by facilities licensed or operated by the [facility] Office of Mental Health; or Provided by the [facility] Office for People With Developmental Disabilities. If such information is present, then the following [facility] mandated warning applies: This information has been [...] law may result in a fine or fpc sentence or both. A general authorization for the release of medical or other information is NOT sufficient authorization for further disc losure. Allergies and Adverse Reactions Type Description Substance Reaction Status Data Source(s ) Propensity to adverse reactions NO KNOWN ALLERGIES NO KNOWN ALLERGIES [facility] Encounters Encounter Providers Location Date Indications Data Source(s ) Outpatient Attender: Candelario Fosterer: PROVIDER ERNESTO EM IN 01/14/2021 12:00:00 AM [facility] Outpatient Attender: Joni Giliaz 01/09/2021 12:00:00 AM [facility] Outpatient 12/24/2020 12:00:00 AM [facility] Outpatient Attender: Orly Myers MD 1 02/22/2020 12:34:05 PM EDT - 12/22/2020 01:36:05 PM EDT [facility] ([facility]) Outpatient 12/17/2020 12:00:00 AM [facility] Outpatient Attender: Boy Sorensen MDReferrer: Kumar Neal MD 12/12/2020 12:00:00 AM EDT - 12/12/2020 12:38:59 PM EDT [facility] Outpatient Attender: CLAUDETTE FELDER MD Main office - [facility] [place] 2] n 11/30/2020 10:15:00 AM EDT [facility] ([facility] Emergency Attender: Ascencion Sales MDConsultant: [facility] 11/26/2020 11:10:00 AM EDT - 11/26/2020 12:14:00 PM EDT [facility] ital Patient discharged. Outpatient Attender: CLAUDETTE FELDER MD Main office - [facility] 11/22/2020 10:00:00 AM EDT [facility] ([facility] Emergency Attender: MARIANA SÁNCHEZ MDAtt cesario: ILSA FERNANDEZ MDAttender: DEFAULT EDReferrer: DIOGO BRADFORD MD 07A-ERMADULT 11/19/2020 12:00:00 AM EDT - 11/19/2020 12:00:00 AM EDT unable to walk, blood in stool, abdominal pain [facility] unable to walk, blood in stool, abdomina l pain Patient discharged. Outpatient Attender: Boy Sorensen MDReferrer: Kumar Neal MD 11/19/2020 12:00:00 AM EDT [facility] Emergency Attender: ER PHYSICIAN 11/18/2020 12:13:04 PM E DT [facility] Emergency Attender: RICHARD JIMENEZ MDAttender: ER PHYSICIAN 11/18/2020 10:15:00 AM EDT - 11/18/2020 04:11:00 PM EDT MEDS INEFFECTIVE DIZZY [facility] MEDS INEFFECTIVE DIZZY Patient discharged. Emergency Attender: ER PHYSICIAN 11/18/2020 10:15:00 AM E DT [facility] Outpatient Attender: Avel Neal MD [facility] [place] 10/24/2020 11:20:00 AM EDT [facility]) Outpatient Attender: Anna Greene PA-C [facility] [place] 10/16/2020 02:50:00 AM EDT [facility] ([facility]) Outpatient Attender: Zora Rodriguez PA-C [facility] [place] 10/15/2020 02:11:00 AM EDT [facility]) Outpatient Attender: Cameron Walters MD [facility] [place] 10/14/2020 02:03:00 AM EDT [facility] Outpatient Attender: Cameron Walters MD [facility] [place] 10/13/2020 02:06:00 AM EDT [facility] ([facility] Outpatient Attender: Avel Neal MD [facility]MP [facility] [place] 10/12/2020 08:35:00 AM EDT [facility] ([facility]) Outpatient Attender: Yash Taylor MDAt tender: JEET GRIDER DOAdmitter: JEET GRIDER DO 10/12/2020 06:07:58 AM EDT [facility] Outpatient Attender: Yash Taylor MDAttender: Tong Blood MD 10/11/2020 10:57:00 PM EDT [facility] Outpatient Attender: Yash Taylor MDAt tender: Tong Blood MDAttender: JEET GRIDERAttender: ER PHYSICIANAdmitter: JEET GRIDER 10/11/2020 08:14:00 PM EDT - 10/17/2020 01:35:00 PM EDT LE EXTREMITY WEAKNESS, UNABLE TO AMBULATE [facility] LE EXTREMITY WEAKNESS, UNABLE TO AMBULAT E Patient discharged. Emergency Attender: GAURANG TENA MDConsultant: [facility] 10/11/2020 10:30:00 AM EDT - 10/11/2020 06:30:[address] [facility] Patient discharged. Outpatient Attender: Linda PATINO 021 08:56:32 AM EDT - 10/11/2020 09:51:31 AM EDT [facility] ([facility] ) Outpatient Attender: SOURAV Gr [facility] 10/08/2020 03:10:00 PM EDT [facility] ([facility]) Outpatient Attender: CANDY PATINO Main Office 09/28/2020 0 1:30:00 PM EDT [facility] ([facility]) Emergency Attender: JJ RIOSConsultant: CLINIC CLAUDIA CROW 09/26/2020 02:15:00 PM EDT - 09/26/2020 07:09:[address] [facility] Patient discharged. Outpatient Attender: LUKASZ CAN RPA 09/23 09:32:22 AM EDT - 09/23/2020 11:21:42 AM EDT [facility] ([facility] ) Emergency Referrer: KORINA TOBIAS MD HVCP-ERMMTA 09/17/2020 05:54:00 PM EDT - 09/17/2020 10:28:00 PM EDT [facility] Patient discharged. Emergency Attender: Ascencion Sales [facility]DConsultant[facility] 09/15/2020 05:46:00 PM EDT - 09/15/2020 07:44:00 PM EDT [facility] ital Patient discharged. Outpatient Attender: Linda PATINO 08:25:50 AM EDT - 08/30/2020 09:14:37 AM EDT [facility] ([facility] ) Outpatient Attender: CLAUDETTE FELDER MD Main office - [facility] [place][Note 2] n 08/13/2020 07:30:00 AM EDT [facility] ([facility]) Outpatient Attender: CLAUDETTE FELDER MD Main office - [facility] [place][Note 2] n 05/31/2020 12:30:00 PM EDT [facility] ([facility]) Outpatient Attender: Linda PATINO 11:15:21 AM EST - 04/21/2020 12:19:03 PM EST [facility] ([facility] ) Outpatient Attender: Katherine anaya 03/15/2020 03:40:00 PM EST [facility] ([facility]) Outpatient Attender: Marnie motta 01/08/2020 07:50:00 AM EST [facility] ([facility]) Emergency Attender: JJ RIOS 2019 09:10:00 AM EST - 12/21/2019 11:18:[address] [facility] Patient discharged. Outpatient Attender: JEREMY SAPP MD Main Office 12/14/2019 09:45:00 AM EDT [facility] ([facility]) Outpatient Attender: Satish Nielsen MD Main Office 12/13/2019 10:45:00 AM EDT [facility] ([facility]) Outpatient Attender: Marnie motta 12/07/2019 08:35:00 AM EDT [facility] ([facility]) Immunizations Vaccine Date Status Description Data Source(s) COVID-19 VACC, MRNA(eCert)/PF 08/17/2020 12:00:00 AM EDT completed [facility] COVID-19 VACCINE Pfizer 08/16/2020 12:00:00 AM EDT completed [facility] Vaccine Series Complete: NOThis Data was Submitted to [facility]. Medications Medication Brand Name Start Date Product [...] EDT ORAL active [facility] ([facility] No Active Medications 01/08/2020 12:00:00 AM EST completed [facility] ([facility]) Aluminum Hydroxide 160 MG / [...] EDT ORAL active [facility] ([facility]) Omeprazole 40 MG Delayed Release Oral Capsule Omeprazole 12/13/2019 12:00:00 AM EDT ORAL active [facility] ([facility] Insurance Providers Payer name Policy type / Coverage type Policy ID Covered libertarian ID Covered libertarian's relationship to becerra Policy Becerra Plan Information ARELI RANDOLPH/ARELI [id number] Spouse [id number] [employer] emp [id number] Employee [id number] U [id number] Self [id number] HEA [id number] S [id number] [facility] HUMAN [id number] 2 [id number] [place] [id number] S [id number] [facility] [id number] 2 [id number] [facility] - O/P [id number] Problems, Conditions, and Diagnoses Code Display Name Description Problem Type Effective Dates Data Source(s) Z6841 Body mass index [BMI]40.0-44.9, adult Aaron dy mass index [BMI]40.0-44.9, adult Diagnosis 11/26/2020 11:10:[address] [facility] E6601 Morbid (severe) obesity due to excess ca lories Morbid (severe) obesity due to excess calories Diagnosis 11/26/2020 11:10:[address] [facility] I10 Essential (primary) hypertension Essential (primary) h ypertension Diagnosis 11/26/2020 11:10:[address] [facility] R0789 Other chest pain Other chest pain Diagnosis 11/26/2020 11 :10:[address] [facility] unable to walk, blood in stool, abdomina l pain unable to walk, blood in stool, abdominal pain Diagnosis 11/18/2020 05:57:00 PM EDT [facility] [id number] CONTACT WITH AND SUSPECTED EXPOSURE TO C OVID-19 CONTACT WITH AND SUSPECTED EXPOSURE TO COVID-19 Diagnosis 10/11/2020 10:30:00 AM EDT [facility] R079 Chest pain, unspecified Chest pain, unspecified Diagno sis 10/11/2020 10:30:[address] [facility] R9431 Abnormal electrocardiogram [ECG] [EKG] A bnormal electrocardiogram [ECG] [EKG] Diagnosis 10/11/2020 10:30:[address] [facility] R531 Weakness Weakness Diagnosis 10/11/2020 10:30:[address] [facility] I499 Cardiac arrhythmia, unspecified Cardiac arrhythmia, un specified Diagnosis 09/26/2020 02:15:[address] [facility] R600 Localized edema Localized edema Diagnosis 09/26/2020 02:1 5:[address] [facility] R42 Dizziness and giddiness Dizziness and giddiness Diagno sis 09/26/2020 02:15:[address] [facility] Flank Pain Flank Pain Diagnosis 09/17/2020 05:54:00 PM [facility] Y[address] or not applicable Unspecified place or not applicable Diagnosis 09/15/2020 05:46:[address] [facility] [id number] Exposure to other specified factors, ini tial encounter Exposure to other specified factors, initial encounter Diagnosis [facility] Right upper quadrant pain Right upper quadrant pain Di agnosis [facility]15[facility] Obesity, unspecified Obesity, unspecified Diagnosis 09/15/2020 05:46:00 PM [facility] [id number] Strain of muscle and tendon of front wal l of thorax, initial encounter Strain of muscle and tendon of front wall of thorax, initial encounter Diagnosis 09/15[facility] Strain of muscle and tendon of back wall of thorax, initial encounter Strain of muscle and tendon of back wall of thorax, initial encounter Diagnosis 09/15/2020 [facility] Pain in thoracic spine Pain in thoracic spine Diagnosi s 09/15/2020 05:46:00 PM [facility] K219 Gastro-esophageal reflux disease without esophagitis Gastro-esophageal reflux disease without esophagitis Diagnosis 12/21/2019 09:10:00 AM [facility] A0811 Acute gastroenteropathy due to [place] a gent Acute gastroenteropathy due to [place] agent Diagnosis 12/21/2019 09:10:00 AM [facility] R197 Diarrhea, unspecified Diarrhea, unspecified Diagnosis 12/21/2019 09:10:00 AM [facility] R94.31 Electrocardiogram abnormal Electrocardiogram abnormal Problem 12/14/2019 12:00:00 AM EDT [facility] ([facility]) Z71.3 Dietary management surveillance Dietary management shaka veillance Problem 12/14/2019 12:00:00 AM EDT [facility] ([facility]) E66.01 Morbid obesity Morbid obesity Problem 12/14/2019 12:00: 00 AM EDT [facility] ([facility]) R01.1 Heart murmur Heart murmur Problem 12/14/2019 12:00:00 A M EDT [facility] ([facility]) R07.2 Precordial pain Precordial pain Problem 12/14/2019 12:0 0:00 AM EDT [facility] ([facility]) [id number] Gastroesophageal reflux disease Gastroesophageal reflux disease Problem 12/13/2019 12:00:00 AM EDT [facility] Surgeries/Procedures Procedure Description Date Indications Data Source(s) OFFICE OUTPATIENT VISIT 25 MINUTES 11/30/2020 12:00:00 AM EDT [facility] ([facility]) Magnetic Resonance Angiogtaphy Head W/O Contrast Material(S) 11/23/2020 12:00:00 AM EDT [facility] ([facility]) Magnetic Resonance Angiogtaphy Head W/O Contrast Material(S) 11/23/2020 12:00:00 AM EDT [facility] ([facility]) Magnetic Resonance Angiography Neck W/O Contrast Materials 11/23/2020 12:00:00 AM EDT [facility] ([facility]) Magnetic Resonance Angiography Neck W/O Contrast Materials 11/23/2020 12:00:00 AM EDT [facility] ([facility]) OFFICE OUTPATIENT VISIT 25 MINUTES 11/22/2020 12:00:00 AM EDT [facility] ([facility]) XTRNL ECG < 48 HR RECORDING 10/30/2020 12:00:00 AM EDT [facility] ([facility]) XTRNL ECG CONTINUOUS RHYTHM PHYS REVIEW&INTERPJ 2020 12:00:00 AM EDT [facility] ([facility]) OFFICE OUTPATIENT NEW 45 MINUTES 10/24/2020 12:00:00 A M EDT [facility] ([facility]) OFFICE OUTPATIENT VISIT 25 MINUTES 10/24/2020 12:00:00 AM EDT [facility] ([facility]) OFFICE OUTPATIENT VISIT 15 MINUTES 10/16/2020 12:00:00 AM EDT [facility] ([facility]) OFFICE OUTPATIENT VISIT 15 MINUTES 10/15/2020 12:00:00 AM EDT [facility] ([facility]) Electrocardiogram Interpretation & Report Only 12:00:00 AM EDT [facility] ([facility]) OFFICE OUTPATIENT VISIT 15 MINUTES 10/14/2020 12:00:00 AM EDT [facility] ([facility]) OFFICE OUTPATIENT VISIT 10 MINUTES 10/13/2020 12:00:00 AM EDT [facility] [facility]) OFFICE OUTPATIENT NEW 45 MINUTES 10/12/2020 12:00:00 A M EDT [facility] ([facility]) OFFICE OUTPATIENT VISIT 25 MINUTES 10/08/2020 12:00:00 AM EDT [facility] ([facility]) ECG ROUTINE ECG W/LEAST 12 LDS W/I&R 09/28/2020 12:00: 00 AM EDT [facility] ([facility]) OFFICE OUTPATIENT VISIT 25 MINUTES 09/28/2020 12:00:00 AM EDT [facility] ([facility]) OFFICE OUTPATIENT VISIT 25 MINUTES 08/13/2020 12:00:00 AM EDT [facility] ([facility], ) MRI BRAIN BRAIN STEM W/O CONTRAST MATERIAL 07/20/2020 12:00:00 AM EDT [facility] ([facility], ) MRI BRAIN BRAIN STEM W/O CONTRAST MATERIAL 07/20/2020 12:00:00 AM EDT [facility] ([facility], ) ELECTROENCEPHALOGRAM W/REC AWAKE&ASLEEP 06/12/2020 12: 00:00 AM EDT [facility] ([facility], ) ELECTROENCEPHALOGRAM W/REC AWAKE&ASLEEP 06/12/2020 12: 00:00 AM EDT [facility] ([facility], ) TSTG ANS FUNCJ CARDIOVAGAL INNERVAJ PARASYMP 12:00:00 AM EDT [facility] ([facility], ) TESTING AUTONOMIC NERVOUS SYSTEM FUNCTION 06/01/2020 1 2:00:00 AM EDT [facility] ([facility], ) OFFICE CONSULTATION NEW/ESTAB PATIENT 60 MIN 12:00:00 AM EDT [facility] ([facility], ) CV STRS TST XERS&/OR RX CONT ECG PHYS SI&R 05/01/2020 12:00:00 AM EDT [facility] ([facility]) ECHO TTHRC R-T 2D W/WOM-MODE COMPL SPEC&COLR DOP 02/26 12:00:00 AM EST [facility] ([facility]) UPPER NDSC BIOPSY SINGLE/MULTIPLE 01/16/2020 12:00:00 AM EST [facility] ([facility]) ECG ROUTINE ECG W/LEAST 12 LDS W/I&R 12/14/2019 12:00: 00 AM EDT [facility] ([facility]) Results ID Date Data Source [id number] 12/19/2020 12:00:00 AM EDT [facility] Name Value Range Interpretation Code Description Data Randa rce(s) Supporting Document(s) SARS-CoV2 Rapid Antigen Negative [facility] This lab was ordered by [facility] and reported by [facility]. ID Date Data Source [id number] 11/27/2020 07:21:00 AM EDT [facility] [address] [place] [address] RESPIRATORY CARE REPORT ==== ---------NAME------- NUMBER SEX AGE ADMIT DISC. XRAY# F/C DENISE GHOSH N [id number] F 30 11/26/20 11/26/2019781023 SB4 E/R DATE OF : 1990 M/R# [id number] #: [phone] RM VT-06 LOCATION: EMERGENCY DEPT EKG [id number] COMP LETE:11/26/20 15:07 [place] [id number] PHYSICIAN: DONATO Sherman Name Value Range Interpretation Code Description Data Randa rce(s) Supporting Document(s) ID Date Data Source [id number] 11/27/2020 05:37:47 AM EDT [facility] Name Value Range Interpretation Code Description Data Randa rce(s) Supporting Document(s) ED Provider Note [facility] ANQVCy8cGzNBVpJd92/UIWxsGPJhx1OlDXhkUXx7IGowFLRbG4LxIHD6hD0qPJA7DUzQCoUqHcJmDJRs lbm StRazUQsYtPHFcPfrUGlJrOTkrCtwjeVQbNA9AnEN0GUQqY15jXLBeLEFzA7CgYCX8ZpZ+Yu2HIIEqeH LiLL8CBstR0I2Zt9wOPw5Z5r7CMIDHzufRWdIWSukDXNjaSunH3lNdNxXFhDcxVdQCwuL/Lhkxlrl2lq PVGMkEGuiqdXJ5Y0/dAyCOU/35zTkKPCGEU/zz+dcg It1e6qiNP02bGg3+U9r6jA5vDggJaoO8Kg4Nt1m7gY3wMj5ZQr7PhWftF9+m7Wdll1NfbBl93i+/annette/ RlRH3mc4zPxhfS7cCSCMUQPi4oJNWmA0RgYM6E32RYaFESjyJQq8jrb8IFzUrQcNwOSukcgXetHmQtO6 vlrbgB/myBMUuzxXBYyyTRjqACcv8y++KuHTifNhsJ Yjmd/BkHo8Vk4K4AuU8r6MGLrNw8L+KnnHEdrVjzmxkatxJWMqH5o3eErMpkIE3oBwxT7vV+WvrkP4Oo YDacuwA+2FhxToYnGpolOH5pNsEtMQLV59RoEXUS+niNrhxoqAHONuJ8vN6nApyQA+BIJwmwe6cOqoWm 8DibiswfdzHJGuJGwWkKhnStoAZ30Cdm+FFg9Bu2u1 xWbUoyCpSsA6lSvjFflNLm9UVG4y7DHKwQuqsWgvBsqRYGPJ+HOt2fGzmjdVVXW2YV2cH0j99dqEDDk8 tfg7rIxT6hnwbIRqY0LRdfp/U+3hfp5FGfQRIiF4NTaicF5tOUgTSoOYZ9H9omsqYqP33EezNTfd/KWM qzs392bwke4clwuJqlxfHkumzdHWcmeipOkA9z8AzA [file] hTbFTq1jSIR+TUFh9WWpQ6armqBKjUbHeqZ+K+f+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 [address] [facility] Emergency Department [address] [place] [address] Phone #: ext- [phone] 11/26/2020 11:09 Patient: AUGIE KAYE Sex: F : 1990 Age: 30yWEIGHT:124.7 kg [...] rce(s) Supporting Document(s) ID Date Data Source [id number] 11/26/2020 11:10:[address] [facility] [address] [facility] Emergency Department [address] [place] [address] Phone #: ext- [phone] 11/26/2020 11:09 Patient: MIKKIAGUIE Sex: F : 1990 Age: 30yWeight: 124.7 [...] rce(s) Supporting Document(s) ID Date Data Source [id number] 11/26/2020 11:10:[address] [facility] [address] [facility] Emergency Department [address] [place] [address] Phone #: ext- [phone] 11/26/2020 11:09 Patient: AUGIE KAYE Sex: F : 1990 Age: 30yWeight: 124.7 kgHeight/Length: 66 inBMI: 44.4ALLERGIES: No Known Drug Allergy Date/Time Medication Administered Medication OrderedGiven ACETAMINOPHEN [PO] Acetaminophen PO 1000 mg11:42 11/26/2020 Dose: 1000 mg Tablets PO (NOW x1)Eder Sykes R.N. Name Value Range Interpretation Code Description Data Randa rce(s) Supporting Document(s) ID Date Data Source [id number] 11/26/2020 11:10:[address] [facility] [address] [facility] Emergency Department [address] [place] [address] Phone #: ext- [phone] 11/26/2020 11:09 Patient: AUGIE KAYE Sex: F : 1990 Age: 30yChest wall [...] CLINIC Respective Team [place], , , [address] [facility] [place], , [place], [address] Follow up in two days if not better. Call for an appointment. Reason for referral: evaluation. ADDITIONAL INFORMATIONChest Wall Pain: Costochondritis [address] [facility] Emergency Department [address] [place] [address] Phone #: [phone]- [phone] 11/26/2020 11:09 Patient: AUGIE KAYE Sex: F : 1990 Age: 30yThe chest [...] that worsens the pain. [address] [facility] Emergency Department [address] [place] [address] Phone #: ext- [phone] 11/26/2020 11:09 Patient: AUGIE KAYE Sex: F : 1990 Age: 30y Take [...] or as directed by your healthcare provider [employer]. [address] [place] [address]. All rights reserved. This information is not intended as asubstitute for professional medical care. Always follow your healthcare professional's instructions. You have been given the following additional information: Chest Wall Pain, Cost ochondritis(Electronically signed by [employer] 11/26/2020 15:59) Name Value Range Interpretation Code Description Data Randa rce(s) Supporting Document(s) ID Date Data Source [id number] 11/26/2020 11:10:[address] [facility] 1 Clinical Report - Nurses [facility] Emergency Department [address] [place] [address] Phone #: ext- [phone] 11/26/2020 11:09 Patient: AUGIE KAYE Sex: F : 1990 Age: 30yTRIAGEArrived by private vehicle. Historian: patient. Accompanied by family. ( presents with with c/opassing out about 1/2 hr ago, states she stood up and passed out, also c/o chest pain for past month).Triage time: 11:20 11/26/2020. Acuity: LEVEL 3.Chief Complaint: SINGLE SYNCOPAL EPISODE.Alert. No acute distress.This occurred today. Witnessed: Event was witnessed.Treatment CANDLE CUTTER:None.SEPSIS SCREEN: SIRS SCREEN NEGATIVE. SEPSIS SCREEN NEGATIVE. No suspected or confirmedsigns of infection present. --11:33 11/26/20 Suellen Poe RN11:20 11/26/20. BP: 134/61. MAP: 85. HR: 77. RR: 16. O2 saturation: 100%. Temp: 98.3 F (oral).--11:33 11/26/20 Suellen Poe RN12: 14 11/26/20. Pain level now 6/10. --12:14 11/26/20 Rose Marie Laws, RTiffaniN.Weight: 124.7 kg measured. Height/Length: 66 inches Per Patient. BMI: 44.4. --11:32 11/26/20 Suellen Poe RN.MedicationsPepcid Oral. --11:23 11/26/20 Suellen Poe, GARETH Protonix Oral. --11:23 11/26/20 Suellen Poe RN.AllergiesNo Known Drug Allergy. --11:22 11/26/20 Suellen Poe RN.PROBLEMS:Concussion.Contusion.Dizziness.Atypical Chest Pain.Bronchitis.Gastroenteritis.Myofascial Strain.Pedal Edema. 2 Clinical Report - Nurses [facility] Emergency Department [address] [place] [address] Phone #: ext- [phone] 11/26/2020 11:09 Patient: AUGIE KAYE Sex: F : 1990 Age: 30y Weakness. Gastroesophageal Reflux Disease. Hypertension. --11:23 11/26/20 Suellen Poe RN Enlarged thymus. --11:24 11/26/20 Suellen Poe RN. Medication/allergy information source: the patient and patient's previous visit record. --11:33 11/26/20 Suellen Poe RN. ADDITIONAL SURGERIES: Endoscopy. --11:23 11/26/20 Suellen Poe RN. History PAST MEDICAL HX: [...] Poe RN 3 Clinical Report - Nurses [facility] Emergency Department [address] [place] [address] Phone #: ext- [phone] 11/26/2020 11:09 [id number] Sex: F : 1990 Age: 30y 11:33 [...] RR: 11. O2 saturation: 98%. --11:35 11/26/20 [facility] 11:42 11/26/2020 Acetaminophen PO Tablets 1000 mg given. Allergies verified and confirmed 5 rights. Information reviewed with patient including reason for taking this medication, signs of allergic reaction and precautions. Verbalizes understanding. --11:43 11/26/20 Eder Sykes R.N. 12:03 11/26/20. BP: 133/94. HR: 76. RR: 13. O2 saturation: 99%. --12:03 11/26/20 Suellen Poe RN.DISPOSITION / DISCHARGE Condition at departure: stable. No learning barriers present. Discharge instructions provided and reviewed with the patient. Patient verbalized understanding. Written instructions provided in [place]guillan. The patient was discharged by the physician. [...] rce(s) Supporting Document(s) ID Date Data Source [id number] 11/26/2020 11:10:[address] [facility] 1 Clinical Report - Physicians/Mid Levels [facility] Emergency Department [address] [place] [address] Phone #: ext- [phone] 11/26/2020 11:09 Patient: AUGIE KAYE Sex: F : 1990 Age: 30y Time [...] HISTORY 2 Clinical Report - Physicians/Mid Levels [facility] Emergency Department [address] [place] [address] Phone #: ext- [phone] 11/26/2020 11:09 Patient: AUGIE KAYE Sex: F : 1990 Age: 30y Never [...] been interpreted contemporaneously by me. Interpretation time: 11:181/12/2020.PROGRESS AND PROCEDURESCourse of Care: 11:46 11/26/20. Reproducible [...] MRI and scans she had done at [facility]. EKG also shows no pericarditis. Old medical records ordered. Patient has had multiple ED visits. 3 Clinical Report - Physicians/Mid Levels [facility] Emergency Department [address] [place] [address] Phone #: ext- [phone] 11/26/2020 11:09 Patient: AUGIE KAYE Sex: F : 1990 Age: 30y Disposition: [...] CLINIC Respective Team [place], , , [address] [facility], , [place], [address] Follow up in two days if not better. Call for an appointment. Reason for referral: evaluation.(Electronically signed by [employer] 11/26/2020 1 5:59) Name Value Range Interpretation Code Description Data Randa rce(s) Supporting Document(s) ID Date Data Source [id number] 11/22/2020 12:22:45 PM EDT [facility] Name Value Range Interpretation Code Description Data Randa rce(s) Supporting Document(s) ED Provider Note [facility] TYRNPk1jDyETAgSh38/JDSnzIWToc9EhPWohPSn0TPufPOVoH5HhXJU1nO6zCWZ3AGbBPfAfBsWrNMU8 lbm [file] jzbN7LsbL/tile picker/AqUBP86yK1BCq2OsufG3n1P5dV71M/7W5G8chlPf3x3S+vtfn7YRA/EmfHAKz0InZL [file] VPRg0K ID Date Data Source [id number] 11/20/2020 01:16:26 AM EDT [facility] Name Value Range Interpretation Code Description Data Randa rce(s) Supporting Document(s) Consultation [facility] JRHSNf1oNrASJvQf48/XRSflZXNgt9MeTGlkLQu2PBnjMIMeP2YjEWF4sL9zSMB0HEuVAfRjDfXrKCM4 lbm [file] ICAgICAgICAgICAgICAgICAgICAgICAgICAgICAgICAgICAgICAgICAgICAgICAgICAgICAgICAgICAg ICAgICAgICAgICAgDQogICAgICAgICAgICAgICAgIC AgICAgICAgICAgICAgICAgICAgICAgICAgICAgICAgICAgICAgICAgICAgICAgICAgICAgICAgICAgIC AgICAgICAgICAgICAgICAgICAgICAgDQogICAgICAgICAgICAgICAgICAgICAgICAgICAgICAgICAgIC AgICAgICAgICAgICAgICAgICAgICAgICAgICAgICAg ICAgICAgICAgICAgICAgICAgICAgICAgICAgICAgICAgDQogICAgICAgICAgICAgICAgICAgICAgICAg ICAgICAgICAgICAgICAgICAgICAgICAgICAgICAgICAgICAgICAgICAgICAgICAgICAgICAgICAgICAg ICAgICAgICAgICAgICAgDQogICAgICAgICAgICAgIC AgICAgICAgICAgICAgICAgICAgICAgICAgICAgICAgICAgICAgICAgICAgICAgICAgICAgICAgICAgIC AgICAgICAgICAgICAgICAgICAgICAgICAgDQogICAgICAgICAgICAgICAgICAgICAgICAgICAgICAgIC AgICAgICAgICAgICAgICAgICAgICAgICAgICAgICAg ICAgICAgICAgICAgICAgICAgICAgICAgICAgICAgICAgICAgDQogICAgICAgICAgICAgICAgICAgICAg ICAgICAgICAgICAgICAgICAgICAgICAgICAgICAgICAgICAgICAgICAgICAgICAgICAgICAgICAgICAg ICAgICAgICAgICAgICAgICAgDQogICAgICAgICAgIC AgICAgICAgICAgICAgICAgICAgICAgICAgICAgICAgICAgICAgICAgICAgICAgICAgICAgICAgICAgIC AgICAgICAgICAgICAgICAgICAgICAgICAgICAgDQogICAgICAgICAgICAgICAgICAgICAgICAgICAgIC AgICAgICAgICAgICAgICAgICAgICAgICAgICAgICAg ICAgICAgICAgICAgICAgICAgICAgICAgICAgICAgICAgICAgICAgDQogICAgICAgICAgICAgICAgICAg ICAgICAgICAgICAgICAgICAgICAgICAgICAgICAgICAgICAgICAgICAgICAgICAgICAgICAgICAgICAg AWZzEJAmSCXqNHQrFICrOFHnBUKwWMb2X0aqBUHvIN XgOS3nCEa6Nm9+ECdDFgArZDH2glUpsA1MJI8sk6UeSHmnWAZbz6LrXYx4EJ7AZXXhAUwjLT7GFPhykr 6SIAQoAIFboYLGy8rwSkUwHQN5YBYdJqogKV4NOABqT7dhcyZrAXMkNJFWKVjtZQCNNGmqNWDOJDTkGV XsSrTuKqMxTBCpPDDbSMQJBO1NVgBoW6WsmW60ASYN Cj4+NNlwhcQlUhkKSiWyROZog0SiDWn9ND4LKYBgVkrku5DiVqZnQNZWIZtbCK4PEHY8SDMnRSOcOl0A RZPfP025pgBfCM6CUo5EAlSkRJ4zxc1RYnHgYBRoBggCFjr5UBgyKQ7GmDUpJGsXw46liKj4nrWbcLJD AMsbNZxnjUmipxhaVFFTVePvgCXgEK03FkDyAkVxAK P1GzUmDW4yYWloKU7QXIR8LWsiSBOkWYEgH1zCRcTgDJOiZLYdvMljJP1DSgZdE5DmkhFguKAwFqTzBU INCj4+FLbpriDkUcjDBgG1IRViy3MyYZr6WO9PHWVbDWxuYM7XJZYbvK2wERadQA5XAoJzNCHgHOQLOf FkH89kvMFcBDy9U0XmKgBaPHBgKkokQLCcIWkiGlLz ZXMgWyBdDQogID4+ID4+HSpxMV0WYFbcenAuPWUqSe2GNTRlSAGsRN5nGHCtGUGtI1V9wPcaPBJAAiPf U0kygdxlBQ2gLYHlE594yTswhsYpLGAhUDEbJn8GCMGaWZI5PSYnxFJyClDvIRLQZDhvCL6BkWQmVTJ0 xJ2sXSaxLEGgMJClK0hCGjCdoTauKQ18rBhhgsNmhW BdDQo+Ri0OCB9dk5HhSDj9spRmJLatHSA2RClzCVUiBCMkTKIeATI2IZV5QEMOBtNfHDYbADPsMDgjVL QzEBXxge3RANReOZXxGyCcDsShROSoDWBvLGyaQUFmPCO2BtP4IRStGTSdBY4BEySbSIGdZJJhSXgmOK CfGIYybo0VYBOhMEUzGBR4ZMGkNOFfDKSoYYvfLHCc LBN4CPZ9ZZPgDJWvAQ2TUkEcSQNyXOmuQAuqBPTqKQIipt3GISNgFWBtViXpBXIuKCMjHXKzMYbqPAIv HDFtPKJqQZHwTYUiPN1EGjOeDPOyDGV9ZlNnFJToGQGhyf3ELXPrMFYeFDNkGnIsGRTyZEFkWLuiIERi REV9BzE7VNMbCAQcUU9BPxQhQREiNXc0CNAkLFAiDA Fcwt7DRVDmKILuVXT7TGPaTSCyFIIpQVqkXBQcGWR8MDM0NJHzGCJlCT5MJjZaUKEmEBt0FoXuAUCfUW Ryhr5XWCWyDXTdEGNjWYXzMVXgBPUmBNabENKrCLRoDVHnYGIyLRIkEF7SHvVjWENtQfFpMIKaXJRdBD Dway1FRQFpDOIfOZf8BvZvEWBiLMOpXBjjXASqXIHd RVj8FCAlDTGeIE3YMhAdZLYtKbVlCvSiVLHiBQEkve2IUKPsGPCyTdUbTtZqXHIyOOOyOSqyRFBhFURd NKKjOIRcOXMeTV2YDrIbRQAlZfW1SBGeAQEnYAThxc7QJGKrXTHfJCT4UAEuXVKxZBQcVCfcRQFpFPJ7 IPU7MHDjOLCtYT9EAnHtZQPbNiS3HKFrLTIoFTVdrn 8SEGCxIAGuUIe6URBzRTSdSQXsBOhgCFUiNVS7GDJtVIInINWqOW5HBoIqFRHnFaX8ICxdYSGiPIUlid 0ADYEiOAHxAnq3QWEgTUWuLVDqJUsoBDOyDQR5XFH6JPJcQWVcPA3EZnTcNQSzGfwiNDOyDZUvRSLxwu 5HbEWyqIotuk6LLAlFXj6RrTjmKGP6GWynQd5zzUNb OPEtQQCGYd2JqsLjEUWmJNEYTKowBXHkOVN9DHW7QwCzFubiEpTzKoJoQHSkDeGvQCKbTxzfDkExNlG9 TeU0Euq0FDMaB1OuRsPcTLF2QtZrNYFkReUkUWSkXQD+BX5oUFm+Iq1Tp7TdddN1jmIwTXjmNSR0LQ0C UUYSC4OUMw== ID Date Data Source [id number] 11/19/2020 01:07:11 PM EDT [facility] CT HEAD WITHOUT CONTRAST [id number] RESU LTInterpreted by:Alan Dale MDHISTORY: Weakness.TECHNIQUE: Noncontrast [...] rce(s) Supporting Document(s) ID Date Data Source [id number] 11/19/2020 09:15:08 AM EDT [facility] XR CHEST FRONTAL AND LATERAL [id number] RESULTInterpreted by:Troy Jules MDINDICATION: Chest pain.TECHNIQUE: XR CHEST FRONTAL AND LATERAL [id number], 11/19/2020 8:04 AM.COMPARISON: None available.FINDINGS: The chest wall is normal in appearance.Cardiomediastinal contours are normal.There is no evidence of pleural disease.The lungs are clear.IMPRESSION: No acute radiographic evidence of cardiopulmonary disease.This document has been electronically signed by GERARDO Jules on 11/19/2020 9:13 AM Name Value Range Interpretation Code Description Data Randa rce(s) Supporting Document(s) ID Date Data Source [id number] 11/19/2020 08:44:52 AM EDT [facility] Name Value Range Interpretation Code Description Data Randa rce(s) Supporting Document(s) EKG [facility] XFMXSy3gZbLRQyJcz9UvYuMbWWRxDM6rume9R0F6hGTqL2RuzYZcg0zpJ1RuL6KeRSRnXDGBTN7KuVKh jb2 [file] Y50LRI9OdcBWPHyCewraJVCFqgEGtVt9PIYZZifVRI6CuAQHCDoBNZoNUaXURMEv5QzoNGUOWOUUROXI 59nTB4HYIEoroYGVsWCBNhHZkB3DtmHZYJph1gJFs1 9fl54qbaWdLinVEDvQUXznoMpuIgFKhLtRhYjkLTaE4/5Au88EDbnpFN833za1/jUZbEpjjG0kDH94a5 92QKkqSK7SwocXqwlO44pW07zuSjE4+mg7ACJnlGmu/n1ujxqaM32LF2qeMwpmzPR217Dg36f6mvBkzP URbmY1aWklZHyC9Iq6+/Ony1s2pIQNDNZg2E7uWYTF K94OSKG8YxjJbnKhKMgWkLs9maZcET1kH+1r5/F1D81uGkXNU4QOoFolfzvYqHWQ5WpjKuhEqtcrASGA 4AflunwUHL1EuUxlBlF1ubwtUMUvNRLoBNTDHOmUYQyRLHU0IUW8748lfhUC8BscjHNkmZbBBw4JtQJN S58gfD201haQLt0nGdzHjccAiQW5npgS0yPGZjwpAl DLUUwK4XF+3DNkiGKA02Q3+Xs8Jw7s68dcxzkHY0nWgsjhrFV7Q/ghFFN3G9Qr0CnsJpoTGAAT86VMaM pugsz6WPOmkfOILBcrwebGIQbZQyNRJUMW8TdMbvkyzJ2ebdSBMwbochNX5Vf3m1Q1wIX0vg+35Hf+YT R/WEp6wR6VhntSAoB+Hx/tIyAegFM1X/BvLEkT xxBTLw/AmeGLnoWPueadRY+43N55w7drjfBQfgqiiX+59Y8Gn6bk3nG5yhIAi+jDlS7vcXKjcj97bxr9 w9TfTBLnjiJ7z4mcapPX7xzgrt023XCOrUd624SRN6s/s6JNa+zaTf6Qi007PezIDLvYKRqHwh2y3aCS 5403l0M+17BkWsfb+/hUH7REOz2j0pqMhh03OOmyo5 KwwigwjemWLte/YcJ54GK/RaPfhWE6tJQ9xeWvv7VV7hlFx81Gwg9MWDp8XkumjjMkYBP8yP306pLXCU G4Hfa2lUZ1mdrMSmjoE0egUpdMpnYiCJwfxnKUMditmdPE9xxYgug3kipfQLemFJFAxsFophysBQtoH8 Uh0QhtvTqaQloH03Ki/knUHFzfnY4VquDH9+MQVoI0 283tXbZNVvEg2R+mDQB/w+6SaikSsYDn8ZwoMPXSoLCRXdQEIEjmVhkoX7usMd3PhffUw1Fn25V+edjf MIymqj49mhyFBZUsUuGWmxbXe65tAZR8/kcEZNbXYeeFLdVXo0hzUE/F3NzA077aIA+OXjska8laXhDU uCsy+421uMNgNuTEpcxCmKrN8t+sDpA/Francisco J+wLkz6Y HBMncutGnmizE+yH7TCNisBFSxOyZ435YLk4vuQ5CKkfZOqRoipJ+BWrwRskMg3LTzsYre2O+7NJjw9L 42AxDlYnMliHfWGxL/W0VME5dxY0LpoXqtIQXgGmIWDdXP9SgGHIBb7q5h0lg48uyoiHQX00u7ZJ1GHj WvG8rXkIFI0vPmb971GwQiW2zNvMGU0d+mBjTPSGMd AfGtTAbKr42T5+cM47e+kIJhXFdtV4uGpCwTAEKLWOwWJ+voeKnadLpVuh2HW2jJCT3LKD8AP+4Jx3dk IpzWOrgYHGFJAzPAkTbXdDHzF2m6Xg2Frs1Sc9qc94T+pxyjNHlvto80glH0HQG183eiuYX8+MpZCK75 Rz9g81J0+7DbBdqVGh3vRbo54tcir1gX5Qyv1bXSYV RBaRRWQ/kb2Id5f4U27UB+EDMa60eyvB3zs8y1u64/mOEWvf8+0j1r4/syljIadAEYYzPCD82Yi05jvq cjC/YUeex1JoF0o572PwGUrjhY1YpiOE/KdUaRe5C0s740b2e+BfGVlVE7lk7g9orZsb1Hk0efc67WJ8 kFmIjm3sOp5Z6CNjtAlPNf5Ijk6fKTq1LOlVF0yvuX lkSjJfoaebdPRy6mfJRhPwbJ1xlMMPYSMgmprkFJzvo6RMcM66a7ttx+yMO1derPZtA6jN3W07FO+Macario Xo4preRBcyEEeI+nCidIQUEwlCT63t9lo8pKLR5l3MGxCLduJ8Ywje+R3uoITZ/sDz+8SZC+E/yF3UHj mUcGJ+k9aVKI6VT5HOrf/3UCpyrC6eUsm+2CfdFGvf P/9CsPN5+/FB/DD3tYrU7uhlHkaVP/B95BYkgQeS+72wFiS2LrpnBb695GUewinb34a5deoZGz/M6Nv5 fSLWvt+J5l0jFFQ9U/CFuXdf+P7AF/nBMiLOOo4+v1iG9rQUdPHdMawJf57Jc3yDE+PliUfBxvcHvvH9 kK6ghzSNC/calMBuQ7XmzglKP7I8Gn+knOYf4FtgMz iLCMfEvYngu/QQRWUMQPCDaMFhsXFeAfsUOzGUNCNJX5OjG9wusvBairahCL449gRxITaPZ+HmkzsG5g SJierLaoIrdWKCYROKEmylkKARABgN5GuOvQj6spwebQ0BenpxKSYJmUC5hJbh02B7WI7/kS/Wvt/Tki fuQKRRgDbFd+yt9m8MMBf3z1R33u9/aITtgV0ufuYr xBCcdTC/8Na+393FUHhrd4b+n1+Bd8Ll12+H3/il+P7YO4HtzaZtc4HeenjpsrbWM9bHykw15icnKC4X p0E1aQu1rO/Q49A/UT5x/zC6KdS85/aay32cJlozJ7SUD85tx4aIUzmfd7miAbL/DI1eQ2I5vk9yL+UT 5QvlC+Sy3zH7a92Ebuyk1gG988wfOk/79d2uqJ57HN yj3FCO+7mupfeg6emfCDOWj05o4VQqh++hbMUvj49jZqF52B965m9oi9dbx9sOLpospnfbSvC8CROO+z vsXefwd/7Ft03R5o9g15S7O4Sr9RQi2C0DgXjrryppb7w+wV5D/oN6D2G9lsf74l7Xnijlb19T+2v+4s T8xY/U1txFuyixZ/Fs6L+2n37H/SFPt0ShM/auOD72 bo3jT/qZ2lCvTaK4zyH2B+d/7N0tyj/34tklA2h0ww//7KoCQ0suDMh3G/Pp2BhPx1+jxof2v0h3OChH iu94WgMVokNezrKpcc9L/eO1+9Ca46dsYFct0E/fpj8/z3N/8gDOO6wUp1+OiS765QmDId0rqB2vIGy7 dskZ7mFuZJ60ShnsiRep2qcIqsr0ZG0ckS3B9cwNsz ugfJ7J36j+Ec+6mYn8IH7k2p0SafSrpiUnvwZhD9jwZS+41Wa7a3FJI+zdeP7u+sk0Sb8C8B/+u9/z6K whT/1nCfm3/J8MOgA15dnjx7+liYD5D95M3eAFzyQ2RCWyPK8T1Y4wm//eUL4/nn21CvYgzA//jYVc7f GcMB0GOnhU/w0x82bJfvLDk/J5ou3o2wxjyRaG0P+9 oriMa4kjn8Wa3FdeR27/O62xK6gyVLrjK/aiAbCAx3Vl3vIKF1qFv+y9K8M/9gblkux8iyBpFnotwLx/ gOTsW7G/bywR/5Z/7G2p/8Vq6CL04UNz6sNN18uZY/nqgkgNq2XOn7/YftSlYF405Ycq7+Ucjec72zZv XDR/+NWM+2S58WrvB/knubNT5Nbopj/+lzg+8XyP7X svgl/l+I1umwJCZNhl4eFYdpw9Pl4ZUc1/Bg65EFXl4IIhU8914pcAJ+UnnvNYn/2fV6y1Y/3Br/J4QP +A/mNvLj8/9uqxK/uZewnCg5Rz2e7Z+cL5G9e/n3+JX55rN1ikn5yl++oMfvWWe3/P6U9/8UrYYTMRo7 DfoQ2Vgvr0Tp49c5Im1v3Ug2nDS72DE2Lk/bmo1Lu6 Cf6CsmOb+JYqsXS66PzoTqa7tu/vegzxHPwq+pAiR2thWS8W6o9RJD47f8MixvCD0s/2Zp86/CqPD7/6 HqNcXrsuT8/hV/ecY++ZuzKPx0FH5Fj/0ZcPv/gij7fAdepVll90odQVvj1xoC1ZtY/A5p606w6+NXMZ 97H3Hr/jc67lxWe6qhJ2r/jV7FF+8G8zwfT9Ytbzkx h4+FXkDM+C7e/xQPlA+pG7foYNd1i+0alcB7l/m67grXb9Ye1gy2/h36AuiwKZ8n2HF8+RFU0Ala26Ev DNqks4HKrv8LEgemR+SXoyuFT6Pcim4Qc38+IAeK7Sx7m1e9V/D7/KWAp+4YZP5brlcd81o3+4F/zqHr 9xIPhVz+M3rga/sjx+PGS/35FPq8SdO4dJ4ppyDfjY Loi2L+/V4Ffhz+OSBb0fRcg9Xi+0d/jsu9NsmQ+hZ3/5T2/gysYQd0vLtl/P78SaRl9Vn6E69vhKsiAP P0I8qD2W/SH6Nx0JF8/l1t/hmaHu7n6gy11xmC/oefy5y+PPXRrKH5/l1f9vG6jfbqTJ4kd3CAf/7/td YK+89/0ujz/3yF/lMexF/ygF259928esvXMwz8288O 546gyxeJ1S4dqpEUDg/pPn1BMSzzCx638hJ2/VFfc3+AHaJ384yuf/bqPVl7S6+XT0eyD97Dv8r/23B7 +6xyh/1gl5a3xb30k/wa/fVTn2cNTU+f54Npyyh5/QP6F/Qf+Jyu44o4786G/6eO+DfeD+jvc+2Md7H+ zIX/WB+6a2n3DFn2Z/5yaw2ZH7Pwbr6B8bDa/iecDe sXD+ie80KebE1Hpa700+uRvur+H+Ad8y8fyu+atuA/vhgli18A3Q/weyG44Q0o6jiPC6XzpZcIT7KGd7 46nx7gM2io7pZ76ycu207jX++5iflWd5V/7qHqMc/klmyf553k2gtSrm+/5Q04e743sgRkn7+u9EPE/c 85x1ddlvJmdeaFcdaZnd/i9j5xsVmw5uJ+SsnJ1B6B xh70T/nQvlL7/DW9xesxoB6O/S5rSija7+5YecdyuTsTM4cQ17WWzA46dL8xLeQ856/GSP/FWeYzjfcf 6Ei3Fpc/hNv9p65rKhDxD8eZN2St932O1+AdeBk1kkZ17FyJqtZq9deNK+lp/8ZLS1O/BZ3lCR4UcrK1 lsKDeU++Mn++XbO/wG2l1k8/fLt/eN/tpilaKud85t wZ5S6A7Z9jiX/UpUG32bCG+vxVQ7XT26/l33imqC/OoRAtFK7wjcAQ8gkG7wnTus/Nd/l7d6Wxos1zuB ZsqHvThRP5s8zzeCF7myu8Axhl5Wi+B1bjy31mD65NQ61QL/NgD179T8Qu6oJOeYD4qU2LfqqiO7Qo36 9fvFE58ess7usyYfu6s2lkaOw/lOk53Sc+3mJ8/i4/ NVxL+n5bv2FIGkFY28bB+gmbnJ1ciOb80TbO+K8Co9UXEx48nv5CM+t541x+5hy+FX/wBiw08HO/wq19 YdfpXrEw+/ahDry47OWzYvWk69brD3B9bh6MxumXeP9dxndkm6X5kaTXO3T+rfczePP+Xhtw+/svi+6C za0gj75Htydz0U90pibA40l/Ku5/CrXOt4+KLq9cby i6kmzdpE7CuCX+/GU45g8pCI4xSAOQySiZvbFXwVF90n5gYzrtGhL/4hF5ZrtJ6/ZP4qj8/9imt4+bqB /SVZsrAGHG7bJ1LghhBqge3slYkla0L+8pMj+NFlU6bP6Z5nn47qqg/iSwhUtxhYD9s6M/v6qk9g5ibs irqkwpCvUiOQd7hTXH54d5MNd8kF9Zx80Cj0xV5zJG Pn4/1Xjmh4c+YrerPTz0wcef9Wtl9+AKhQQ00o45+ZD9Angeiok8+O2VE+kT8IKkC7wbdcz94Ei0O/TM JpmFvVWvpau3rdcphcCE7B5cIz0uwCa1SCwlkXbtF5h/mtkWC3WspLgcFyintWw+m/H5haJq2zs+0dO8 ojf/VyACu2fFRK+Ts55kax+VCGuHjqBQ8dDJB+48bh V99j+55z+XZU6w5E7zIzad4T+CJ9giwYx+k0mNe9t2t5yrH51mt058fq+FN0jqc11hZEr/cC4RzQvg/v 8UL5es+Rw6++x9/xw8o4WS/1nJW+hCf8E09sU8yA+b5jlJ/x+tQIp6d0H/mLff73PhJa0L870Gfdn0Gg s7w3/BnH58fdn+Pd1J6W67cgePi6Dzokjp5DJka4ss 9C3Unue4o2TOPLne84Zzm6Nt310htWOaj2D5COX4dNietPh1/nmBjOf+9HJo8/W/CrWNsmE+YgO2tytL dD/3v/UI137yC0r2RGi11u5ZBx1XM6My5e+otq0rfjY33v5SmMsmT9IRhD7I0eOOqkrvY3tLB9kv4P59 nQE+4N3wo3heenl8z2lAT/Eo3wIjlde1/pWul48Y/Q j/vbH3+2/opbYo0vtmNcb0D/oX9B/4Kejet/+Lan846E7W3GWE8l+P0FtojnzjZ7T0Ug1pZzbFoaTI03 H/A3NR75rscqN2GYGJwU+YP8aw87rxVEi94qXRVsUIuUg0022dieVr4nLmLC+4hmT98lvvA+deW91LvZ 31+Z4f7i+urzqOU4Z0c9/hDl8qmuZww9cgoVwk2bq0 U7oTfWg4WQ5nskb8TbN/9F/mmMjmIemlj0C2EOV/JXNt/9vn6Sx1A79yTX/MEFpA2I3f5HK9R/58vX2X j9ZjkMhucxvZlg+uq5lt25tHqqS/yucep4wD+OrlUsptwnO8Zagxh1V5t/C/CcjL9F6/VZlGk5r+H+Lk Y96Z1F1qB+c7RF7NiwzfI4uC8n67I7d0/3uv299/3y [file] 6KhS106m/0znZ/1e117yv5Mge//1t799+/Wvvv/47u P7t2/ef/HV5+++fvv1t1/78v0L40/6+Nufvf/iwalbno424qbfq76//Blf792i5t/69RZ064t7+ifW3G W9RwFbx1m8vIl0tQ575rr//v7tw5e//fjlN//Fz+4B+I2KH619+9U3r/p3dDhln4f2x+/fPv/b6hl3U3 569/oJ1c70on8as/fppv7hm2+9/+b9tx//6u8qo806 +8I6e0yr3636Iz0q9tpT5247D25zGeYhhswkhisEZ4/WvP/97153t4Zxpr3VC86/+/b5d9/04r9I52+8 /cNXH7+8//D23S/frnbcLOMzmX/oY2jpWa14hy628j05z/7u269++XLutx/fPv/y3bcvo/7d5wkrb858 7Rf/xT/vXvj+5+d/+vFff//gate mortiser operator/7wL2//9B9vv/n9H/ 7wuz//+Yff/rNi0e189I+//+EPb//606T646+//zuLG6G4oa/7yi4lNy+ufx9w0du/0ZNAYgZ2nYi//O PP/50JfKToO5o4dh/4G+JfDbEg7M870g1XDO1DHst/8zkjWXwK4QxN2/ln0uZtAL030mQwH0vpUT/r89 sL3Wi08QsyFn78vr8//OsPL//gxbha8o4O5+9/9e7r r96+//Gsv358Ux027J/Hyb9Y/0vXHm/zr2sz+2nPv/yVhdwDabgKJ89GL6mQieHJd7/527c//+4vP3xy 9td4+ogCdg0g/ZHPaGkPJqE/PfsGf/Xh7fc//uWHP/+f/7Nealdsl09Pw/e+sTF+Floresita/f2H79/+5X+/ 7v33f/awk1tcjlw+qlv7iWB8/cef//3Hf+aTnpcCfz Gkn/hIKfv12idZYRf+wXv/GHW4uRKnOscgG+9pY7/09CsgeHh34l/94d//83vzPLVr/Oy/v/f7U5y5vi er1/TtP/78j3/9k1/vp marketing/DLH/38xs510hfyD/h3f/m3H/95h75bS2n//sef/af6Ejs6mu/95/8+7vvwpz /62IDvU2T2yF//6Z8/M+ANwl2jX5iFK//4wz//24+/ /+ff/+1Fo1651TkaUnq3ZGmean/5/SoDkr//97+8Wty/fPb5l++///c0q5kqlQbb4950+hbVp/7qd//z hzd5+9O/an4zwDX+GqCfV/37+2Ybcd2v/Ut4fYu+/+Lj6/W/q9c1GkJzE//f6T0N2Wf+z3eff/7qVV+/ bXcGhXubyuOI/w+t5UThRjAfGWN8ltSwrKfxymJmEn dTFWntBBVpOja0TH7PaCDlDCRxU6D9CREjlh6cOLZlNAIsiTOtRvGdNIVLIV1ZlXZpJK0MSSr3KGYlXL DfMrOaHMZapaX7MTOkNRLiMHZwN7ZtbnVyjTNsZDPhHd5+TQ5lj1CgTeTzKUOtUjv6IX4ReESuAO1XdH EnkA2nocCwA670aaSwDLIzZmhil6MgCFxhQOTWMJ0V VHN7WZF0RIYuFw2+DB7xv5NpJrMmAHExXxy2PC3YaUGdz1XhLL1XK6AeTVDtNSWMPGD2l2BbMHGogqxb pfsvN8JqXPD5pY6lCBX6KNWwYEcxMYYyCPDrQXU8PSYkFOdaHAYnVOPnZZKdYHBzVQm8mXUiXW1SP6Zu GHBlERXIAVYvzsOaGe3uZLsOQ3HAPXQPQFeENBUfYA cuMQCoGDSyC7LaqaLoiWEqFKZHTOgkZxevLSGcsK2vuPjzB2OxBVA7w9NpKB9HV9LfXIDaABDJVWY1o9 NcQUYfzahgtjduJySoDRXrJLTqQMZrAV2Rof3pkHAsrnAjXZIANXfgTqlmMF9wkOpobdvuO1TpbFLyZS A+RaUfCM0pra1+MqZwCISuWis3IUDwNEvbZMUfYOWp UZBkY8yhWSFwWoKsFQQoRpYbHI9Qf7NspRRrJo6qhyKrPrgOhFWhZhiiSHCaDFSvUJJyJqOATVJhFQHj FXItWXM0KXXqWJShSVzqYMWrNKV4KLA3PATrPZBnGY7oEzFsSSHsJqFpHMXsQVMaOLQgbnXCITZkKUP1 EWI6ZWQzYMDyAFQoHFuwBZVaTHHmDGCiSZC1HQJ2RJ EaGcHgBCWoCMYwBXJyNJFpWMZnqsNLSWGuBYWpEBT8SGThXGKjQKDlSAoiSQLlYDQwOYhjLWXqWNYlDA 4gCjAwMDAwMDAyOTggMDAwMDAgbiAKMDAwMDAwMDQwOSAwMDAwMCBuIAowMDAwMDAwNTIzIDAwMDAwIG 4pCeHkMNRaTMX6BYFmHPQoPHPronEOOOAwCTTaDPc0 KGVkILThOPWgDLhcVMIoBTXnFHE7OQGdLQSbIO0lUoCvNRWrGSB4FgEuLNZuPPGukpVXJBReMBLyMIP9 BbLqMQFfHMDxTShiFAEtNNHlMQtpZMNoBPDpFV3iBmRwIQZrROLhOBdxMBIwPVWhhhOFCYWdOEJsCUKd UqSuLFVfIRAxMEkwGFQvQNS0NAy6EEOyBHBtER9mBu WxIOLvOZR1FReiZFFkLLJpanFZLEZwJKMcOXebHBVoMNXsUOTtURneYCIeTNYhRRO1XXYgKZQxFP2jMd RpZSYpVWLsHMLvWvR2XbFwWkXGoAQjaZoswiz7IKotM3w2WSNhRRjgNG3nuvAnYEBpDxfgUm6vxZV2RY KiUndHZc2Go1JwjnZ3idXhItF9YNn3YeYpAY9W ID Date Data Source [id number] 11/19/2020 08:44:41 AM EDT [facility] Name Value Range Interpretation Code Description Data Randa e(s) Supporting Document(s) [facility] HIDHAe2iQuWXByRml6NsYgSrXMWwZF5gybo6D1W0lYCmN6EvyKQde2uuS9YlH6WrBPPyXWVHTW4YrBBp jb2 [file] /body wirer/Ynd2A/EN8lnqa9tUaYAftLvmhS3XjWTZE8X88jskbEzRAAs8v4N91GM/Ymd+eZ78ba074vmzO9M Hjz6DXHYgSHUXekY95eo9bFSzIKpEJKigksctekEFZTTYXBLcUCNDEGBLJVY8iteeg+NPAHwnoXEGQ5g [file] /ebcvWT285Y1Cpr6cvi0Sm+gbzh/x/p27Yk6EH3tb7Gk9YbCIv0XT1RU3MJ9qiXi/I2VT/nursing home/QCvUKv 0DfoG/Qd+g69QY/2ynm+Oa4uTC8lt12x+oA+oJ/Qz2 ddzXVw3qxhLp+6Un/Hw3RxUiT93zkvU19Z6NxAFPbPf3KhUbgc1F+Nd3hSh5S9dXwmGw+uiu0ouh2KE/ gCdc3i0N+bpr79Rua0i/Gh0IS9AI/QK/QN+gZ9h74/fmDL+NU+Pvef/bF7Ee6xyMf0Rc15olwIcodpu2 /Vyr/V50rGH39tC+3jx79q/fjPrfyr/I1eOIa+Qd+g 64N88R99n64VB5J37O59dQ1mt4Xu/NxEl0V3ovw9mGHeYbLiE/B4asgelnE51/5tdr5/W/cHR99i4c7m /uQQdogG00u0vJ9uwqj+oL/b25a/daPkUc0I1k8rsCMO4YYukXhhPAPddU5oFjTRk/jMSnTRLCO/8lzu NEI3jJyyya/e/eFu81kwfWmR1b3I1y6gn2+6n3poCe o9ayElffy/93zG63exVXJ4iuc/6nn/d/jfblo4Wd/X4qDcxpAiKUu40ggD04uB9hvoTG58Uc5ge+5txa 3t6iXjStwR2A1o12z6iAS/fo3H4GphyJ+mktQC814hkFALMW/lzhqlEX4Sr7AwwEy+4ju0w1SI5lubeJ 2r22Xfbs17XjPS0pGbBx7cc2YQio1qS+gV+qj0zCt4 sYfJb20ZmJzbShjE/YDeoXfoA/qAfkJ//Mk2jz/Z4iM24ldYzJeyXRp4f+w1QtgvW2+hN+qN3bo92foZ /9ymQ+/QB/QB/YT+xNt7xq/1HsQkji68204+ne+Hstm7QpifcXeNxf8E5et0Lr0TniYe6Fz6FG8swyS3 l45HDqKPZq6e5ELysE8iK4P6+kLY9801+oe4UKggz9 Y70szbme/d7B04Fv8rw+NPdnHoHfqA/xiLoarYp37mxd4/OI61c1l9Goup9kqL2shk7iEvd8/fr/b21L dmYeoGx7ho432o3JW9Sr75L7s8wa+zMyJ3yJ/adABm8nvY7+0fxmX5SH+hn+c8iF/19K/yWvCvevpXeZ /pX+X9p3+V7Wpob/vIuBwdM9gpM3peE2rsV/b0r0Yd n+fVjr/RG55vw/EoAc60LwmcjZ/29K+yj6V/VccCvTzzeU//qv1U19Io0HX/9w69QW/QD+eR0C32eztq QB/QT+aOxay6qNhKRgG5Xg97yJpEOkY3Hs86eLmGZyD7Iy19dOpVNzGvJmrNJlZe1Z/3bx/n/djfWE3u hE2pPImcKEaQ7kdE7eI0McN7mA8M7Y7w67D0J3c43L 8D0a02p2Y4M+73xAsRFbt7Uv75wSaOSx/x1V6zrry4hm6fx/pX+qz4SZ4d63k9npkEW+kl9Gh2sD/8qw 7/vsjaV3uaaN1Y0hH/lfcWaG+l74NwQ76Wv6EW46ZP4GU3Ei1Y58CK5BG6sX4Nq/o88Zw+z/bQqygc1f j9NpmNbNjqA/QN+x24c91fK4z16D1Z7mZmm+gD+oD+ xHN6xa/kd8gZx7d8cid/Gqk/+2KcXyjPz7/treMGfYO+Q9+hN+gN+sU5yS8lc+gD+oB+Qn/7y9pt51YX d06cXiUKyc/KPuqy3VOwUq4p4FzXc98bK+wU7AY6l72fH+gD+gk9ni/SM19RnkQG1XU5t08vqdLQper2 iv480mDsM5he/9n0fB+Znu8F0+M/o901UTQD+U9/Ns Vy5RARjDdq7ZrffmE3JqbFj2xw7L/qWKBP/2qs4/SvJI+RG7j5wR+l/nz/WvpXV+r74+9Zrg/uY+gHfj 9jSh8kvYpmppmQ5rrcBcs3/472pn+Vdkj/Ku2T/lVP/wsRqWaj7JIIapYcpg/QG/QG/YB+QO/QO/QBPZ 4v9/C7gd8pzwZqtj9UR/SDAjvfQ05z8So0H/pXddzP mCdDL4dxg5q+GlqlO7PgfmOMd9hdkQ+5PrhiLJbrgyvGYrk+mH2m9l+pE200j/Ys5ZD52x+CoIv9Q9si Q7++p9qjZFe2csl/ujT1d/vo87WdbUyvf1N3rdtdMX1acdZzZ9jZr/sdmcXIcjF8oThCb+Ro8ww5SQkz /LW3f49FdaY8v6a/tQNqOqlavq0HMnLAMGabv6dpWm n/Ks+Z+6/wE7t6hvCg8xlt69gC+90iy6Of/7QFW6cey2zfzchn7egs/+qq36/9V/o4en2T3gvxpf1y6b v2X5mf/ZPmZ/+cElopMU4FcRr/hpvoI5y+KH3w8Lh06zkr7EpyV/QGvUE/oB/Qoz/B9P0zqf1pdtdVjk f95U5y09hl1MlhE+gFeoVeoW/QN+jxPkr/of8GyaS+ QI/30XToHfrzvWDzfC/YnNAf/9mlg45c2aK2BT/QK/QKfYO+Qd+r78Ec2Lw5tD8X20W51PH7WV+hR3sF 1II3R5UvDAyD4CD9Y63/PuX439VBwTlerWzoF/Cbv7XP9W0M5kbM/wMS648GOwZ8pD+6twPH7w7unH7X iJ4V1iuAEOa11opf/aue+mo8j9rbhRpG+FXL3+R62c hjO8cD+sD01Z623AxiV/9qf14sh9OQ/Yl8i5bp33ZQ/pElIW7XO7Cn2Qy6Zp2Yl8cJ0j+x812wr1+17g H+9ga3Ha5k+ldSx/x5Mi5icZJzj0t2zX0vwdMKjr0Bm+Z4Xt9bKR6wPL5voJJ+fA+Htiy9Os/eLdBh9s 3RO/Tn+3f08/07ukE/oEd/7g69Qx/QB/QT+bKlB1c3 jte0xSvuDFkCJdHg1Aah4K55395WMAqM/uoWr785xUtJj/JcBM1BS9B/66FjnO+hOO7sIYrLOeLV7l7F ejzfceIbY+S3Bbprhpr16CjUha/E5p68sdCAs+I6TlxphyagyG4T1+m0sk1x37t+jhwmcD7U4+tor6O9 jvY6ni/NR7kS2DZ/k9Fg3Zo5R/nIegnxg5w3Q8Os7R v3yB4J0fp1vhZq66R56D82rx34FrWdJ/05zvf+DDtTYzOx1A2/kbg7B7WjdeD/nujPE+1F/GogfjXmie hDye0BAinPgIaYH/QnnjPmwHkceoc+iR7MrdJ+nWf9yK+vxxXcC0YjXW/QK/FYuvhXTLhZ36Kc7Vo3Zt 3A+ZbN28A37JB3EB0dgrZXjcxH6ZJw5QV6D2ObMYyd Qd+j67U54G27v/7994vi381Tr23lP+sCOlkGhrZDH2VPe/oH7hZuXCVuY/rJ3qbPlN9HP+i94H08Z9+5 Hn/W2vbUjfiG02ptvh87mj4vD3M99K11Rrdnygw/baXYpyWfaexw8Iwp0WnWtl/0Wh/S8jl5JV/1dtZD ZehbfY44CM9xEvMpDP52rN4j1JyP/6qOA/qAfkJ/9v N7+fg6rX78g9i4G1nh/jEjUW3voRmDp/nixa24n077A96onS2v1KrK/Mo7xm/H+Z2Aio5ug1K8eqMtai 7c0Z8N/vhCsy229i78bijYt1V99Hq7XotXxBMx9O/oB/HVqFJj9U//rp00B94gl7/JjOd76M++9iN57m +POrYdy/QPY3JhumFSpRK+6rpFOrhXwqmnb0Yek+f+ 7xnJ7c60nSt3P/XlMkr76829yp/ap8J6d5Lvc1G3/cofFMvjZz+Yr/7W05e93Am/yrF/+1eSOYx++1cr Uew+1jKuF04n/WD5+9UzgQ6ky68s51hf+FWb+Hq6miFP/0x7buI15JZ0dgPL5yaZwIi1L03F3khOccW7 x8jtX+lMmyz/Kvek+jBozlnScmh5A4/29K/bZYZ5x4 zvIw/0Z/hXHpif4/iTjviVY3+1p9ofjQl5RV7bn76YaV3H40L16DL2IJ/5Oc5+OY7tO0Kt/5Vj/5Vj/5 Vj/5Vj/9IYJd6OjtKmtXilAwjR/MTf56Qi6Pk8eC/Nsx/H51nIMFkTjfFSDn9ON0Of8Ly3n55I74Ur7P e3y58yzbtQHxA58U26eS2hw5Gm/NSqC35xGF9WaAS/ 9l+UzMiJvIdXUv8ES+x79J01f/1EV7FLdYMUUqfJEdklT5xhqV8zb8qqf8zW+M3WNi0CDY6r6M+FnvhG 1EoIHkXHWpYUEhd80/3pgL3L9Z1H6diZ+9sD+9sD+9sD+YOB/MHA/vbA/vao/e3r97X/jiWupqXI2md/ s+JXM/UrfjVTn/TaKamik7ebixXnnzN1pzE/qmOD3q AfOM/A+dd+t8h36fvFbrr3uYJ+VTS0F+uDUeuDlsePXxT9+JPRz/iJrGvftfe9N/vbo5/c70R1VrU/in 7isdHRn/uZn6Of+Tm6Q+/QB/QB/YT+zM+B+gyB+gyB+gyB+gyB+gyB+gyB+gyB+gyB+gxhHXqDHvOVYb 8bxZgMLbouJfeeTmY8l2G3pBK+YCB/MJA/GAPtHZiv QtzmsdzqLF3sqL7O1mj4bOH+YCB/MJA/GMgfDOQPBvIHA/iRlkjSPD2fLR8eaS8TzO7K0G1L1euW5Pgm 7XW0F/pPgclBND8oCF2ahJ6LeE1A7Q4N6xrZ+YOB/MFA/mAgfzAc/TmOvxFxQS/Q4/noddUZ0aT+9gi0 X3AeBMmbXeF0s3I/WnBlMo9XwR8R+FcB/dptEcX6a5 B/FRPtxfpgzLN+HHStO0DQ9M/6USB/MJA/GMgfjHnizzFPfDKw/yqw/yqw/yqw/yqw/oro7RqT9j0c61 mdeOxE/uBE/uBE/uBE/uBE/uBE/bZ2XwLk+g69QW/QD+wG8R72To/QB/VFxwIL3J8YnfEwPsGC5M8Zgs BeYrGE3V8Eo9I/fQrai/pNyxBEGUqwvF9Y5ljtO4gg /KupaK+arZhE93fo2v4dqi3FOy09wpE+QX/Qjhe9P2100/PM/LioQ6Vo/itN/ak3MjN+4eA6EJ2qh3j9 v9UM99rgS/Dnt78t0E+inA7YcI2tD+flhjk1Pq85uoNOmv8lj78PO1UX62dVqlogjYU/Dc69oTbtX2kh nKjPMLE+NAVYA/oxxES06A/fez/qw3LW2p77TxdtKsr0 [file] 7k9IV6064+t0o92xFJEsM/32DHnU6V2a06Iq/uvKZD +d+Ze/oYVXzZUDeqeJ+ajj0Rdq//xPq1h2lb/++v0nZ3+9TN+juK06ip/5cGo1MW+j/PTsG/zNh7c//v jX7//yv//v6zP3374ylv2cdUXQIi50tj50b7lh//6/Xvf+xz//+VHRy2S5Wwr6guIC/vnjL/05660Kt9 0ZFfirt/4i2mf80Rx+qeWtnTR7n3e/IOH/rYpm+Df/ 4V5u6Jr///Dzj29/+H++/8+/MKDGH2fg7//t3Tc/X6/gf/27pm//5y//+vc/+fV+DP/0/Q9/+NMnD3h+ gn/71//5/V9+8t/wlHS55wng/b5oGPj3m//xt//72O/Dn//4f7avNdmsY6zp/erP//fX6MAaa71uAug2 x+//7X/++Md/++MffvzsTVYphZ/7vkHV5S//86+v/v bvn33+6/nopLd6chwzh/hi5o6iUy04q0++p+zvPuMov9+a//8/ub+Q1G2eFn2KG/6v79/k7c//8fbJa9 Rc8DsM003bPa3z459/dGq36pydZx6dhLr5lOr1dTxsh9Ui3Q4/7z7//NPuv90e8ffGg1wYC3R/P7JKkK ZHFA7rx4XcPFZsEqRcME8ppditEYRdUM4apjj0C0Ju rYryDZhXNPXcTt1xpUUnYF1AVYV0FPhiIJPfWKGuS0ArkC6nN40tjVTgCiZlEMWPSC5HwuV0DRL5JUH4 WGEcDhXvYHHdID47VXWpXSNWFi5pquIvNpsZCzThFM2bfme0E1W0sLKrW697jXlnfpQhVF2Ed0LpdVMg OS0SuYMmoIDfXPPrPEElN1iyv8VgVBwiAETJZk5rsv KdCfaSMjLaUZ4zcah6F0N1hBhgxjTaEIHUQYvkYeerPB0pwExncurpE8FrtTUaDJGcO2MzJOMsf09GYU DnJSuFGbXeEsDsESP8TFt3CUdfSfZuZCDnFSBeCFGkWT1ZnCNzGDNzIRXBOEtgRbgwPJBoqF5zqRUMx5 GrF16LNGMkIEiHYQqQDJC4TAXaSzRxRZ5HhGTiKBJ7 VVtLBZQEPIxPVUyxNmVax1I6XCWsD3WdDFEwniHjAPTKCWjqYfnaCS4zrEmwhzniD2BysCJhNRPNYTIl NFNdJLDjJPNxM7Fjf9G5T2HqSOnIHHWFCKbWIXumIsG0y48tfmPWMEAhIDWkWL9+QJ5ik0YzDd0KFPBw SG9memq0ID3OiZSmYM0HSTtqhbVxS5gpxvUnOuZfVA PTCO4uP5CweX94FWV+NcCbYG8zfhp4qpTqRuQgITBkZGAhGJKuOCxoYHLkVMQhNSMkMNU4IIG3NOZuKe StJEMwEvDbTYWuSJAkDKXihfPOOXWqBAP3LDUfOBJcCQSmYELnETnuQVTyGUP9JHa2KOUkOHLuMY7hVc KyZLDoWDXiPZHyQqD0ViKdYpSBPAJfJYMrLMBjOmXb KLGwYWVtHGquXUIdKGPmTOg2LGJpUBVgBV4lClYsITVjCXZeVLXlBXBfQASbzgOTZRFjQOXtPEZ2VWQx ZWMuZKAuONhtAVOoLATfZRQ5HONeGGHgTH7rLuWuWHCoGAN7NdLzVNSgCBRduzMYMIThYOLpJZL2WSWb ZPPeCFEaRBrgBJYoEXQnIyE9LJPeVXPpRL2uIkAkWE PsYOT0ULYmCQVzRFPirjPMXDCdKAHxBKz8MwLxXJGjHFJwZCzqUPRnOQKzSOatZAFuKRFtXQ1qGkPaIK UdVGKdVEYhFFBvAGGjvrCNONKpWOCzQKV6HbOlTECpCHUpSLswOPTlANCnWJJ0ANCmSHTtUC3wHwLxBP JxUcJ8EpWjFSLqBHWztuCDPRJtNUTpHXVeRENkMCRj RFJdFIpwXBYrSTRmFqF7OJOkXNNyTJ3wZkKfUGCjUCP4LKSqJAZfNQAuglNTHVCcUIMhDXQwKUU3OTJt TWAsLNo6qyWjeFAfBzk3Qf3VdLmkLHW1Tf7SktCnEBQhZAUREu1Ix661URCxEHPRDgy+PgpzdGFydHhy HFDOEvP9OWdONFUVS8Z= ID Date Data Source [id number] 11/19/2020 10:43:52 AM EDT [facility] Service Cmnt XXX-Imp : NoneMicroorganism XXX Cult : NEGATIVE for fecal occult blood by immunochromatography. This test is not designed to detect bleeding from the upper GI tract. To detect bleeding from the upper tract, order Fecal Occult Blood, Upper GI (Hemoccult-SENSA). Name Value Range Interpretation Code Description Data Randa e(s) Supporting Document(s) ID Date Data Source [id number] 11/19/2020 10:08:52 AM EDT [facility] Service Cmnt XXX-Imp : NoneOB Pnl Stl [...] rce(s) Supporting Document(s) ID Date Data Source [id number] 11/19/2020 07:27:28 AM [facility] US ABDOMEN LIMITED [id number] RESULTInte rpreted by:Radha Barahona [facility] INFORMATION: Exam: US Abdomen, Limited; Right Upper [...] Name Value Range Interpretation Code Description Data Rnada rce(s) Supporting Document(s) ID Date Data Source [id number] 11/19/2020 07:12:59 AM [facility] Name Value Range Interpretation Code Description Data Randa rce(s) Supporting Document(s) Choriogonadotropin.beta subunit free [Units/volume] in Serum or Plasm a <5 [facility] (NOTE)Levels between 5 and 25 [IU]/L may indicate earlypregnancy and should be repeated after 48 hours. ID Date Data Source [id number] 11/22/2020 02:08:03 PM [facility] Name Value Range Interpretation Code Description Data Randa rce(s) Supporting Document(s) Acetylcholine receptor Ab [Moles/volume] in Serum 0.05 nmol/L 0.00-0. 24 [facility] (NOTE) Nega tive: 0.00 - 0.24 Borderline: 0.25 - 0.40 Positive: >0.40Performed At: [facility] [id number] Ibarra MD Ph:[phone] ID Date Data Source [id number] 11/23/2020 02:08:35 PM [facility] Name Value Range Interpretation Code Description Data Randa rce(s) Supporting Document(s) Acetylcholine receptor blocking Ab [Units/volume] in Serum 22 % 0-25 [facility] (NOTE)Results of this test are labeled f or research purposes only by theassay's supervisor powder and primer canning. The performance characteristics of this assayhave not been established by the supervisor powder and primer canning. The result shouldnot be used for treatment or for diagnostic purposes withoutconfirmation of the diagnosis by another medically establisheddiagnostic product or procedure. The performance characteristics weredetermined by [employer]. Negative: 0 - 25 Borderline: 26 - 30 Positive: >30Performed At: [facility] [place], [place] [id number] Ibarra MD Ph:[phone] ID Date Data Source [id number] 12/14/2020 06:06:49 PM [facility] Value Range Interpretation Code Description Data Randa rce(s) Supporting Document(s) Acetylcholine receptor modulation Ab/Acetylcholine Ab.total in Serum [facility] (NOTE)Test not performed. Unable to perf orm test due to currentunavailability of reagents or discontinuation of test. Negative: <21 Equivocal: 21 - 25 Positive: >25Effective December 12, 2020, test [id number] AChRModulating Abs, Serum was made non-orderable dueto an ongoing reagent issue. Specimens are storedfrozen and can be referenced to [facility] to provide aresult for our clients.[id number] Acetylcholine Receptor Modulating AntibodyThis is a temporary send-out until the FlowCytometry assay for the detection of AChR ModulatingAbs can be brought online in January 2021.Performed At: [employer] [facility] [address] [id number] Sanjai MD Ph: [phone] ID Date Data Source [id number] 11/19/2020 09:24:55 AM [facility] Service Cmnt XXX-Imp : NoneRespiratory P CR Panel : PCR ResultsMicroorganism XXX Cult : See Labs Tab for 2019 nCoV RT-PCR resultsHAdV DNA QI COLBY+non-probe : Not DetectedHCoV [id number] Nph QI COLBY+non-probe : Not DetectedHCoV [id number] Nph QI COLBY+non-probe : Not [id number] RNA Nph QI COLBY+non-probe : Not [id number] RNA Upper resp QI COLBY+probe : Not [...] DNA Nph Q COLBY+non-probe : Not DetectedB [id number] DNA Nph COLBY+non-probe : Not Detected Name Value Range Interpretation Code Description Data Randa rce(s) Supporting Document(s) ID Date Data Source [id number] 11/19/2020 07:01:33 AM [facility] Name Value Range Interpretation Code Description Data Randa rce(s) Supporting Document(s) Leukocytes [#/volume] in Blood by Automated count 8.2 10*3/uL 4-10 [facility] Erythrocytes [#/volume] in Blood by Automated count 4.24 10*6/uL 4.1- 5.3 [facility] Hemoglobin [Mass/volume] in Blood 12.2 g/dL 11.5-15.5 [facility] Hematocrit [Volume Fraction] of Blood by Automated count 36.4 % 3 6-45 [facility] Erythrocyte mean corpuscular volume [Entitic volume] by Auto mated count 85.9 fL 80-96 [facility] Erythrocyte mean corpuscular hemoglobin [Entitic mass] by Automated count 28.7 pg 27-33 [facility] Erythrocyte mean corpuscular hemoglobin concentration [Mass/volume] by Automated count 33.4 g/dL 32.0-36.0 [facility] E[facility] distribution width [Ratio] by Automated count 13.5 % 11.5-14.5 [facility] Platelets [#/volume] in Blood by Automated count 276 10*3/uL 150-400 [facility] Differential cell count method - Blood [facility] Neutrophils/100 leukocytes in Blood by Automated count 72 % [facility] Lymphocytes/100 leukocytes in Blood by Automated count 18 % [facility] Monocytes/100 leukocytes in Blood by Automated count 7 % [facility] Eosinophils/100 leukocytes in Blood by Automated count 2 % [facility] Basophils/100 leukocytes in Blood by Automated count 1 % [facility] Neutrophils [#/volume] in Blood by Automated count 5.95 10*3/uL 1.8-7 .0 [facility] Lymphocytes [#/volume] in Blood by Automated count 1.45 10*3/uL 1.2-4 .0 [facility] Monocytes [#/volume] in Blood by Automated count 0.60 10*3/uL 0-0.8 [facility] Eosinophils [#/volume] in Blood by Automated count 0.13 10*3/uL 0-0.5 [facility] Basophils [#/volume] in Blood by Automated count 0.07 10*3/uL 0-0.2 [facility] Nucleated erythrocytes/100 leukocytes [Ratio] in Blood by Automated count 0 /100{WBCs} 0-0 [facility] ID Date Data Source [id number] 11/19/2020 07:19:33 AM [facility] Name Value Range Interpretation Code Description Data Randa rce(s) Supporting Document(s) Cardiactroponin T pnl SerPlHS <14 [facility] ID Date Data Source [id number] 11/19/2020 07:21:14 AM [facility] Name Value Range Interpretation Code Description Data Randa rce(s) Supporting Document(s) Albumin [Mass/volume] in Serum or Plasma by Bromocresol green (BCG) dye binding method 4.3 g/dL 3.5-5.2 [facility] Bilirubin.total [Mass/volume] in Serum or Plasma 0.8 mg/dL <1.2 [facility] Bilirubin.direct [Mass/volume] in Serum or Plasma <0.3 [facility] Alkaline phosphatase [Enzymatic activity/volume] in Serum or Plasma 71 U/L 35-104 [facility] Aspartate aminotransferase [Enzymatic activity/volume] in Serum or Plasma 14 U/L <32 [facility] Alanine aminotransferase [Enzymatic activity/volume] in Seru m or Plasma 13 U/L <33 [facility] Protein [Mass/volume] in Serum or Plasma 7.2 g/dL 6.4-8.3 [facility] ID Date Data Source [id number] 11/19/2020 07:21:14 AM [facility] Name Value Range Interpretation Code Description Data Randa rce(s) Supporting Document(s) Lipase [Enzymatic activity/volume] in Serum or Plasma 21 U/L 13-6 0 [facility] ID Date Data Source [id number] 11/19/2020 07:21:14 AM [facility] Name Value Range Interpretation Code Description Data Randa rce(s) Supporting Document(s) Bicarbonate [Moles/volume] in Serum 23 mmol/L 22-29 [facility] Chloride [Moles/volume] in Serum or Plasma 99 mmol/L 98-107 [facility] Creatinine [Mass/volume] in Serum or Plasma 0.81 mg/dL 0.50-0.90 [facility] Glucose [Mass/volume] in Serum or Plasma 85 mg/dL 70-140 [facility] Potassium [Moles/volume] in Serum or Plasma 4.0 mmol/L 3.4-5.1 [facility] Sodium [Moles/volume] in Serum or Plasma 135 mmol/L 136-145 L [facility] Urea nitrogen [Mass/volume] in Serum or Plasma 8 mg/dL 6-20 [facility] Anion gap 3 in Serum or Plasma 13 mmol/L 8-15 [facility] Osmolality of Serum or Plasma by calculation 278 mosm/kg 275-300 [facility] Creatinine/Urea nitrogen [Mass Ratio] in Serum or Plasma 9 [facility] Calcium [Mass/volume] in Serum or Plasma 9.2 mg/dL 8.6-10.0 [facility] Glomerular filtration rate/1.73 sq M pre dicted among non-blacks [Volume Rate/Area] in Serum or Plasma by Creatinine-based formula (MDRD) >6 0 [facility] Glomerular filtration rate/1.73 sq M pre dicted among blacks [Volume Rate/Area] in Serum or Plasma by Creatinine-based formula (MDRD) >60 [facility] ID Date Data Source [id number] 11/19/2020 06:24:00 AM EDT [facility] Name Value Range Interpretation Code Description Data Randa rce(s) Supporting Document(s) SARS-CoV-2 RNA 2019 nCoV Real-Time RT-PCR: NOT DETECTED [facility] This lab was ordered by [facility] and reported by [facility] ID Date Data Source [id number] 11/19/2020 09:25:32 AM EDT [facility] Name Value Range Interpretation Code Description Data Randa rce(s) Supporting Document(s) Specimen source [Identifier] of Unspecified specimen [facility] SARS-CoV-2 RNA 2019 nCoV Real-Time RT-PCR: NOT DETECTED [facility] Assay Performed [facility] Patients first test for condition [facility] Patient employed in healthcare setting [facility] Patient has symptoms related to [facility] When did you start to experience these symptoms [Date and time] [Phen X] [facility] Patient was hospitalized because of this condition [facility] patient was admitted to ICU for condition [facility] Patient resides in a congregate care setting [facility] status [facility] ID Date Data Source [id number] 11/18/2020 07:06:50 PM EDT [facility] Name Value Range Interpretation Code Description Data Randa rce(s) Supporting Document(s) Color of Urine [facility] Clarity of Urine [facility] Specific gravity of Urine by Refractometry automated 1.025 1.003 -1.030 [facility] pH of Urine by Automated test strip 5.0 5.0-8.0 [facility] Protein [Mass/volume] in Urine by Automated test strip 30 mg/dL Neg ative A [facility] Glucose [Mass/volume] in Urine by Automated test strip Neg [facility] Ketones [Mass/volume] in Urine by Automated test strip 20 mg/dL Neg [facility] Bilirubin.total [Presence] in Urine by Automated test strip Negative [facility] Hemoglobin [Presence] in Urine by Automated test strip Neg [facility] Leukocyte esterase [Presence] in Urine by Automated test strip Negative [facility] Nitrite [Presence] in Urine by Automated test strip Negati ve [facility] Leukocytes [#/area] in Urine sediment by Automated count 0 /HPF 0 -5 [facility] Erythrocytes [#/area] in Urine sediment by Automated count 0 /HPF 0-3 [facility] Epithelial cells.squamous [#/area] in Urine sediment by Auto mated count 1 /HPF None [facility] Mucus [#/area] in Urine sediment by Microscopy low power field None [facility] ID Date Data Source [id number] 11/18/2020 06:29:33 PM EDT [facility] Name Value Range Interpretation Code Description Data Randa rce(s) Supporting Document(s) ED Provider Note [facility] HVIHPo0hZsQGJpMq45/KNIpePBWow7FfPAycXKw5TBkvHLZbV1BbAVE6zD0hUFR2MIuNQyFvIsHmXNLb lbm [file] MDAyMzIyOCAwMDAwMCBuDQowMDAwMDIzNDEyIDAwMD HfLU8NGwBbILWgFfD0NZJsVHDxRWJnpm8QbSFdbGweye6CFYaHMz1GwQssJZK8IXnbEv0klNZiHKUxZA ZGGk5JtdMoWRGvBQOORSieCSLcKWz6Pmm7HEW6F7IsRCE0SeYxTuW5JYP0CIf5SMJ6JfEiNuC8KRLxYr K0QspxJzB5OBvdVPR2UFtqGjM9QzsuNRqvNsS+IF0g DQo+Rq2Pm8JaxvD8pjYhBLdsQxmkVH3SBESJB7AQKa== ID Date Data Source [id number] 11/18/2020 12:13:00 PM EDT [facility] DATE OF EXAM: 11/18/2020XAM:Chest 1V Po rtable CLINICAL INDICATION: SOB TECHNIQUE: Single chest x-ray. COMPARISON: Chest x-ray dated 10/16/2020. FINDINGS: The lungs are clear and well expanded.No consolidation or pleural effusion is identified.Normal cardiovascular silhouette.Unremarkable osseous structures. IMPRESSION: 1. No acute cardiopulmonary disease. X2End of diagnostic report for accession: [id number] Interpreted: Leroy Cabrera MDTranscribed: 11/18/2020 12:12 PMSigned: 11/18/2020 12:13 PM Leroy Cabrera MD --------- [facility] # [id number] BILL # [id number] Name Value Range Interpretation Code Description Data Randa rce(s) Supporting Document(s) ID Date Data Source [id number] 11/18/2020 01:39:19 PM EDT [facility] Name Value Range Interpretation Code Description Data Randa rce(s) Supporting Document(s) ESR 46 mm/h (0-20) H [facility] ID Date Data Source [id number] 11/18/2020 12:37:40 PM EDT [facility] Name Value Range Interpretation Code Description Data Randa rce(s) Supporting Document(s) MAGNESIUM 1.9 mg/dL (1.7-2.4) [facility] ID Date Data Source [id number] 11/18/2020 12:37:40 PM EDT [facility] Name Value Range Interpretation Code Description Data Randa rce(s) Supporting Document(s) TSH,ULTRASENSITIVE @ 0.835 mIU/L (0.360-4.170) [facility] PERFORMED AT [address] [place] [address] ID Date Data Source [id number] 11/18/2020 12:37:40 PM EDT [facility] Name Value Range Interpretation Code Description Data Randa rce(s) Supporting Document(s) C REACTIVE PROTEIN @ 1.5 mg/dL (0.0-0.5) [facility] [address] [facility] [address] ID Date Data Source [id number] 11/18/2020 12:37:40 PM EDT [facility] Name Value Range Interpretation Code Description Data Randa rce(s) Supporting Document(s) TOTAL PROTEIN 8.2 g/dL (6.4-8.2) [facility] ALBUMIN 3.4 g/dL (3.5-4.6) L [facility] GLOBULIN 4.8 g/dL (2.7-4.3) H [facility] ALB/GLOB RATIO 0.7 RATIO [facility] BILIRUBIN,TOTAL 1.0 mg/dL (0.0-1.0) [facility] PLEASE NOTE:Total bilirubin results may be falselyelevated in patients taking Eltrombopag. BILIRUBIN,CONJUGATED 0.2 mg/dL (0.0-0.3) [facility] BILIRUBIN,UNCONJ. 0.8 mg/dL (0.0-0.7) H [facility] ALKALINE PHOSPHATASE 76 U/L (45-117) [facility] AST (SGOT) 12 U/L (11-39) [facility] ALT (SGPT) 23 U/L (12-78) [facility] ID Date Data Source [id number] 11/18/2020 12:37:40 PM EDT [facility] Name Value Range Interpretation Code Description Data Randa rce(s) Supporting Document(s) CK 52 U/L (26-192) [facility] ID Date Data Source [id number] 11/18/2020 12:37:40 PM EDT [facility] Name Value Range Interpretation Code Description Data Randa rce(s) Supporting Document(s) SODIUM 137 mmol/L (136-145) [facility] POTASSIUM 4.2 mmol/L (3.6-5.2) [facility] CHLORIDE 108 mmol/L (100-108) [facility] CO2 28 mmol/L (22-31) [facility] ANION GAP 1 mmol/L (7-16) L [facility] UREA NITROGEN 7 mg/dL (7-24) [facility] CREATININE 0.84 mg/dL (0.60-1.00) [facility] BUN/CREAT RATIO 8.3 RATIO (10.0-20.0) L [facility] GLUCOSE 76 mg/dL (70-99) [facility] CALCIUM 8.7 mg/dL (8.4-10.2) [facility] GFR >60 ml/min/1.73m2 (>59) [facility] GFR ( AMER) >60 ml/min/1.73m2 (>59) [facility] GFR INTERPRETATION [facility] --NORMAL KIDNEY FUNCTION OR MILD DISEASE - GFR >OR= 60CHRONIC KIDNEY DISEASE - GFR 15 - 59RENAL FAILURE - GFR <15 Est. GFR calculation based on the MDRDstudy equation, which assumes a steadystate for creatinine. Est. GFR should notbe used for medication dosing. ID Date Data Source [id number] 11/18/2020 12:29:22 PM EDT [facility] Name Value Range Interpretation Code Description Data Randa rce(s) Supporting Document(s) HCG, QUAL. SERUM (NEG) [facility] ID Date Data Source [id number] 11/18/2020 12:13:04 PM EDT [facility] Name Value Range Interpretation Code Description Data Randa rce(s) Supporting Document(s) WBC 9.0 10*3/uL (4.1-11.0) [facility] RBC 4.41 10*6/uL (4.00-5.40) [facility] HGB 12.7 g/dL (12.0-16.0) [facility] HCT 38.2 % (36.0-47.0) [facility] MCV 86.7 fL (80.0-95.0) [facility] MCH 28.9 pg (27.0-32.0) [facility] MCHC 33.3 g/dL (32.0-36.0) [facility] RDW 13.6 % (10.5-14.5) [facility] PLT 296 10*3/uL (150-450) [facility] MPV 9.4 fL (7.1-10.7) [facility] NEUT % 75.4 % (35.0-75.0) H [facility] LYMPH % 15.0 % (16.0-52.0) L [facility] MONO % 7.6 % (0.0-8.0) [facility] EOS % 1.1 % (0.0-5.0) [facility] BASO % 0.9 % (0.0-4.0) [facility] NEUT # 6.8 10*3/uL (1.8-7.7) [facility] LYMPH # 1.4 10*3/uL (1.2-4.8) [facility] MONO # 0.7 10*3/uL (0.0-0.8) [facility] Eosinophils [#/volume] in Blood by Automated count 0.1 10*3/uL (0.0-0 .5) [facility] BASO # 0.1 10*3/uL (0.0-0.2) [facility] ID Date Data Source [id number] 11/11/2020 06:42:00 AM EDT [facility] Name Value Range Interpretation Code Description Data Randa rce(s) Supporting Document(s) SARS-CoV-2 (COVID 19) NEGATIVE - SARS-CoV-2 (COVID19) [facility] This lab was ordered by [facility] a nd reported by [facility]. ID Date Data Source [id number] 10/24/2020 12:49:00 PM EDT [facility] ([facility]) Name Value Range Interpretation Code Description Data Randa rce(s) Supporting Document(s) Venipuncture Laboratory test result [facility] ([facility]) musk ab cheri ra ssa ssb anca lyme parris Nuclear Ab [Titer] in Serum Laboratory test result [facility] ([facility]) HOMOGENEOUS PATTERN DETECTED - TITER 320 SPINDLE PATTERN DETECTED - TITER 320 ID Date Data Source [id number] 10/24/2020 12:49:00 PM EDT [facility] ([facility]) Name Value Range Interpretation Code Description Data Randa rce(s) Supporting Document(s) Lyme Disease Screen with Reflex 0.66 0-0.90 [facility] ([facility]) <content>Normal Range: Less than 0.90</c [...] 4 weeks.</content>
<content></content> ID Date Data Source [id number] 10/24/2020 12:49:00 PM EDT [facility] ([facility]) Name Value Range Interpretation Code Description Data Randa rce(s) Supporting Document(s) Angiotensin converting enzyme [Enzymatic activity/volu me] in Serum or Plasma 21 U/L 9-67 [facility] musk ab cheri ra ssa ssb anca lyme parris Uthlg-3-Ptzzschvryl interpretation in Amniotic fluid Laboratory keyshawn t result [facility] ([facility]) NEGATIVE This test did not detect abnorm al levels of anti-MuSK antibodies. Cell Fractions/Differential [Interpretation] in Body f luid Laboratory test result [facility] ([facility]) Comments: This result does not exclude a diagnosis of Myasthenia Gravis. Recommendations: Health care providers, please contact the [facility] Client Services Department at if you wish to speak with a clinical csm consultant regarding this test result. Other testing [...] [Units/volu me] in Serum Laboratory test result [facility] ([facility]) musk ab cheri ra ssa ssb anca lyme parris Laboratory test finding (navigational concept) Laboratory test result [facility] ([facility]) 1. Taina Hart, et al. (2005) ELENA 293: 1 906-14. (PMID: [id number]) 2. MARIEL Reyes, et al. (2000) Postgrad ed 107: 211-4, 220-2. (PMID: 77126213) 3. Joe S et al. (2014) J Auto immun 52: 90-100. (PMID: 24359614) 4. Dasha Guerrero et al. (2013) Autoimmun Rev 12: 931-5. (PMID: 31733657) This test was developed and its analytical performance characteristics have been determined by [facility]. It has not been cleared or approved by the U.S. Food and Drug Administration. This assay has been validated pursuant to the CLIA regulations and is used for clinical purposes. Laboratory oversight provided by Shaan Hunt M.D., Ph.D., CLIA license becerra, [facility] (CLIA# [id number]) Testing performed at: [facility] [address] [place] [id number] Reference lab test method Laboratory test result [facility] ([facility]) Detection of antibodies was performed by Radioimmunoassay (MIROSLAVA) methodology. Limitations of analysis: Reagent effectiveness may affect the signal intensity of the response. Although rare, false positive or false negative results may occur. All results should be interpreted in the context of clinical findings, relevant history, and other laboratory data. Laboratory test finding (navigational concept) Laboratory test result [facility] ([facility]) <content> < /content>
<content>Interpretive Result Table</content>
<content> </content>
<content>INTERPRETIVE RESULT: Negative</content>
<content>TEST: anti-MuSK</content>
<content>TECHNICAL RESULT: <1:10</content>
<content>REFERENCE RANGE: Negative <1:10, Borderline 1:10, Positive >=1:20</content>
<content> </content>
<content> ----</content>
<content></content> Nuclear Ab [Presence] in Serum Laboratory test result 0-0 [facility] ([facility]) titer pending Sjogrens syndrome-B extractable nuclear Ab [Units/volu me] in Serum Laboratory test result [facility] musk ab cheri ra ssa ssb anca lyme parris Rheumatoid factor [Units/volume] in Serum or Plasma 10.6 U/mL 0-13.9 9 [facility] ([facility]) musk ab cheri ra ssa ssb anca lyme parris ID Date Data Source [id number] 10/24/2020 12:49:00 PM EDT [facility] ([facility]) Name Value Range Interpretation Code Description Data Randa rce(s) Supporting Document(s) Neutrophil cytoplasmic Ab [Presence] in Serum Laboratory test result [facility] ([facility]) ANCA Screen includes evaluation for [...] may be ordered. ID Date Data Source [id number] 10/24/2020 12:49:00 PM EDT [facility] ([facility]) Name Value Range Interpretation Code Description Data Randa rce(s) Supporting Document(s) Creatine kinase [Enzymatic activity/volume] in Serum or Plasma 52 U /L 26-174 [facility]) musk ab cheri ra ssa ssb anca lyme parris C reactive protein [Mass/volume] in Serum or Plasma 1.6 mg/dL 0-1.0 Above high normal [facility] ([facility]) musk ab cheri ra ssa ssb anca lyme parris Miscellaneous Laboratory test result [facility] ([facility]) musk ab cheri ra ssa ssb anca lyme parris Erythrocyte sedimentation rate by Westergren method 10 mm/hr 0-20 [facility] ([facility]) musk ab cheri ra ssa ssb anca lyme parris ID Date Data Source [id number] 10/24/2020 12:49:00 PM EDT [facility] ([facility]) Name Value Range Interpretation Code Description Data Randa rce(s) Supporting Document(s) Glucose [Mass/volume] in Serum or Plasma 86 mg/dL 74-106 [facility] ([facility]) [place] Diabetes Association (ADA) Recommended Range is 65-99 mg/dL Urea nitrogen [Moles/volume] in Serum or Plasma 9 mg/dL 6-20 [facility] ([facility]) Sodium [Moles/volume] in Serum or Plasma 141 mmol/L 136-145 [facility] ([facility]) Creatinine [Mass/volume] in Serum or Plasma 0.7 mg/dL 0.5-1.3 [facility] ([facility]) Carbon dioxide, total [Moles/volume] in Serum or Plasma 23 meq/L 20 -31 [facility] ([facility]) Potassium [Moles/volume] in Serum or Plasma 4.0 mmol/L 3.5-5.3 [facility] ([facility]) Chloride [Moles/volume] in Serum or Plasma 107 mmol/L 98-107 [facility] ([facility]) eGFR-female 97 mL/m/1.73m [facility] ([facility]) eGFR-Aa female 117 mL/m/1.73m [facility] ([facility]) <content>Normal Kidney Function or Mild Disease GFR >59 mL/min/1.73m2</content>
<content>Chronic Kidney Disease GFR 15-59 mL/min/1.73m2</content>
<content>Renal Failure GFR <15 mL/min/1.73m2</content>
<content></content> Anion Gap 11 mmol/L 7-16 [facility] ([facility]) Alanine aminotransferase [Enzymatic activity/volume] in Seru m or Plasma 24 U/L 4-36 [facility] ([facility]) Effective 08/16/2016: [employer] has indicated interference with the drugs sulfasalazine and sulfapyridine. They suggest collection should occur prior to drug administration due to falsely depressed results. Aspartate aminotransferase [Enzymatic activity/volume] in Serum or Plasma 26 U/L 8-33 [facility] Alkaline phosphatase [Enzymatic activity/volume] in Serum or Plasma 66 U/L 46-116 [facility] ([facility]) Albumin [Mass/volume] in Serum or Plasma 4.3 g/dL 3.6-5.1 [facility] ([facility]) Protein [Mass/volume] in Serum or Plasma 7.3 g/dL 6.4-8.3 [facility] ([facility]) Results may reflect a potential interfer ence in Total Protein results in patients receiving dextran as blood volume expanders. Bilirubin.total [Mass/volume] in Serum or Plasma 0.8 mg/dL 0.3-1.2 [facility] ([facility]) Albumin/Globulin [Mass Ratio] in Serum or Plasma 1.4 Ratio 1.0-2.0 [facility] ([facility]) Globulin [Mass/volume] in Serum by calculation 3 g/dL 1.9-3.7 [facility] ([facility]) Calcium [Mass/volume] in Serum or Plasma 9.6 mg/dL 8.9-10.5 [facility] ([facility]) ID Date Data Source [id number] 10/24/2020 12:49:00 PM EDT [facility] ([facility]) Name Value Range Interpretation Code Description Data Randa rce(s) Supporting Document(s) WBC. 10.58 x10E3/uL 4.2-12.0 [facility] ([facility]) Hemoglobin [Mass/volume] in Blood 12.8 g/dL 12.0-16.0 [facility] ([facility]) Erythrocytes [#/volume] in Blood by Automated count 4.24 x10E6/uL 3.9 -5.4 [facility] ([facility]) MCH 30.1 pg 27-33 [facility]) MCV 89.2 fL 80-98 [facility] ([facility]) Hematocrit [Volume Fraction] of Blood by Automated count 37.8 % 3 6-47 [facility] ([facility]) Platelets [#/volume] in Blood by Automated count 281 x10E3/uL 135-420 [facility] ([facility]) RDW 13.1 % 11.2-15.2 [facility] ([facility]) MCHC 33.7 g/dL 32-36 [facility]) MPV 8.5 fL 7.0-12.3 [facility] ([facility]) % Katerine 75.9 % 41.0-80.0 [facility]) %Lym 18.6 % 10.0-45.2 [facility] ([facility]) %Baso 0.4 % 0.0-3.0 [facility] ([facility]) %Story 4.1 % 2.0-13.0 [facility] ([facility]) Eosinophils [#/volume] in Blood by Automated count 1.0 % 0.0-8.0 [facility] ([facility]) Story 0.4 x10E3/uL 0.0-1.0 [facility] Lymp 2.0 x10E3/uL 0.6-3.1 [facility]) Neut 8.0 x10E3/uL 2.0-8.1 [facility]) Baso 0.0 x10E3/uL 0.0-0.2 [facility]) Eos 0.1 x10E3/uL 0.0-0.6 [facility]) ID Date Data Source [id number] 10/31/2020 12:42:00 PM EDT [facility] Received: 10/25/2020 at 02:53:00 AMD : [employer], [address], [place], [address], Ilsa Hinojosa M.D.,PhD Received: 10/25/2020 at 02:53:00 QPT : [facility], [address], [address] [place], [address], Kiko Crisostomo MD Received: 10/25/2020 at 02:53:00 QPT : [facility], [address], [address] [place], [address], Kiko Crisostomo MD Received: 10/25/2020 at 02:53:00 WAO : [facility], [address] [place] [address], [address] [place] [address], [place], [phone], Shaan Gilbert Name Value Range Interpretation Code [...] may be ordered. ID Date Data Source [id number] 10/31/2020 12:42:00 PM EDT [facility] Received: 10/25/2020 at 02:53:00 AMD : [facility], [address], [place], [place], , Ilsa Hinojosa M.D.,PhD Received: 10/25/2020 at 02:53:00 QPT : [facility], [address], [address] [place], [address], Kiko Crisostomo MD Received: 10/25/2020 at 02:53:00 QPT : [facility], [address], [address] [place], [address], Kiko Crisostomo MD Received: 10/25/2020 at 02:53:00 WAO : [employer], [address] [place] [address], [address] [place] [address], [place], [phone], Shaan Gilbert Name Value Range Interpretation Code Description Data Randa rce(s) Supporting Document(s) Sjogrens syndrome-A extractable nuclear Ab [Units/volume] in Serum by Immunoassay <1.0 NEG AI <1.0 NEG Normal (applies to non-numeric results) [facility] Sjogrens syndrome-B extractable nuclear Ab [Units/volume] in Serum by Immunoassay <1.0 NEG AI <1.0 NEG Normal (applies to non-numeric results) [facility] ID Date Data Source [id number] 10/31/2020 12:42:00 PM EDT [facility] Received: 10/25/2020 at 02:53:00 AMD : [facility], [address], [place], [place], , Ilsa Hinojosa M.D.,PhD Received: 10/25/2020 at 02:53:00 QPT : [facility], [address], [address] [place], [address]Kiko MD Received: 10/25/2020 at 02:53:00 QPT : [facility], [address], [address] [place], [address], Kiko Crisostomo MD Received: 10/25/2020 at 02:53:00 WAO : [facility], [address] [place] [address], [phone], Shaan Gilbert Name Value Range Interpretation Code Description Data Randa rce(s) Supporting Document(s) Angiotensin converting enzyme [Enzymatic activity/volu me] in Serum or Plasma 21 U/L 9-67 Normal (applies to non-numeric results) [facility] ID Date Data Source [id number] 10/31/2020 12:42:00 PM EDT [facility] Received: 10/25/2020 at 02:53:00 AMD : [facility], [address], [place], [address], Ilsa Hinojosa M.D.,PhD Received: 10/25/2020 at 02:53:00 QPT : [employer] [facility], [address] [place] [address], [address] [place] [address], [phone], Kiko Crisostomo MD Received: 10/25/2020 at 02:53:00 QPT : [employer] [facility], [address] [place] [address], [address] [place] [address], [phone], Kiko Crisostomo MD Received: 10/25/2020 at 02:53:00 WAO : [facility], [address] [place] [address], [phone], Shaan Hunt Name Value Range Interpretation Code Description Data Randa rce(s) Supporting Document(s) INTERPRETATION [facility] NEGATIVEThis test did not detect abnorma l levels of anti-MuSK antibodies. Reference lab test results [facility] Interpreti ve Result Table INTER PRETIVE RESULT: NegativeTEST: anti-MuSKTECHNICAL RESULT: <1:10REFERENCE RANGE: Negative <1:10, Borderline 1:10, Positive >=1:20 Service comment Liam castelan Comments: This result does not exclude a diagnosis of MyastheniaGravis.Recommendations: Health care providers, please contact the [employer] Client Services Department at if you wishto speak with a clinical csm consultant regarding this test result.Other testing available: [...] is variable with an overall incidence of xuvtofbuuykge75:100,000 (1).Anti-MuSK antibodies have been associated with Myasthenia [...] Service comment 04 [facility] 1. Taina Hart, et al. (2005) ELENA 293: 1 906-14. (PMID: 60385702)2. MARIEL Reyes, et al. (2000) Postgrad Med 107: 211-4, 220-2. (PMID: 36966301)3. Chinyere-Sherin S, et al. (2014) J Autoimmun 52: 90-100. (PMID: 53203935)4. Dasha Guerrero et al. (2013) Autoimmun Rev 12: 931-5. (PMID: 31357730)This test was developed and its analytical performance characteristicshave been determined by [facility]. It has not been cleared orapproved by the U.S. Food and Drug Administration. This assay has beenvalidated pursuant to the CLIA regulations and is used for clinicalpurposes.Laboratory oversight provided by Shaan Hunt M.D., Ph.D., Ceci becerra, [facility] (CLIA# [id number])Testing performed at:[facility] [address] [place] [address] ID Date Data Source [id number] 10/16/2020 01:11:00 PM EDT [facility] Name Value Range Interpretation Code Description Data Randa rce(s) Supporting Document(s) SARS coronavirus 2 RNA [Presence] in Res piratory specimen by COLBY with probe detection NOT DETECTED [facility] This lab was reported by [facility]. ID Date Data Source [id number] 10/16/2020 02:27:08 PM EDT [facility] Name Value Range Interpretation Code Description Data Randa rce(s) Supporting Document(s) SPECIMEN [facility]CRIPTION [facility] INFLUENZA B (NEG) [facility] RSV (NEG) [facility] COMMENT [facility] THE [place]. FDA HAS MADE THIS TEST AVAILABL SUSANAER AN EMERGENCY USE AUTHORIZATION(EUA) FOR THE DETECTION AND/OR DIAGNOSISOF THE VIRUS THAT CAUSES COVID-19.PERFORMED AT [facility] [address] COVID19 RESULT (NDET) [facility] martine FLOREZ THIS ASSAY AMPLIFIES AND DETECTSTHE TARG ET RNA USING REAL-TIME PCR.TESTING PERFORMED ON [employer] GENEXPERTNEGATIVE 2019_NCOV RT-PCR RESULTS DONOT PRECLUDE 2019_NCOV INFECTION ANDSHOULD NOT BE USED THE SOLE BASISFOR PATIENT MANAGEMENT DECISIONS. FIRST TEST [facility] martine FLOREZ EMPLOYED IN HLTHCARE [facility] SYMPTOMATIC [facility] Thierry Jameson DATE OF SYMPT ONSET [facility] HOSPITALIZED [facility] martine FLOREZ CONGREGATE CARE SET [facility] martine FLOREZ ID Date Data Source [id number] 10/16/2020 09:35:00 AM EDT [facility] DATE OF EXAM: 10/16/2020HEST RADIOGRAPH [...] consolidation are seen. Professional interpretation performed at [facility] .End of diagnostic report for accession: [id number] Interpreted: Shelbie Marreroranscribed: 10/16/2020 09:33 AMSigned: 10/16/2020 09:35 AM Shelbie Marrero DO [facility] # [id number] BILL # [id number] Name Value Range Interpretation Code Description Data Randa rce(s) Supporting Document(s) ID Date Data Source [id number] 10/15/2020 11:10:00 AM EDT [facility] DATE OF EXAM: 10/14/2020 MRI CHEST WITH [...] evaluate. L2End of diagnostic report for accession: [id number] Interpreted: Shelbie Marreroranscribed: 10/14/2020 08:45 PMSigned: 10/15/2020 11:10 AM Shelbie Marrero DO [facility] # [id number] BILL # [id number] Name Value Range Interpretation Code Description Data Randa rce(s) Supporting Document(s) ID Date Data Source [id number] 10/12/2020 04:56:00 PM EDT [facility] DATE OF EXAM: 10/12/2020XAM: Thyroid U ltrasound INDICATION: EVAL FOR MASS [...] a dominant nodule. Professional interpretation performed at [facility] .End of diagnostic report for accession: [id number] Interpreted: Jeremy Aquino MDTranscribed: 10/12/2020 04:55 PMSigned: 10/12/2020 04:56 PM Jeremy Aquino MD [facility] # [id number] BILL # [id number] Name Value Range Interpretation Code Description Data Randa rce(s) Supporting Document(s) ID Date Data Source [id number] 10/17/2020 07:44:05 PM EDT [facility] Name Value Range Interpretation Code Description Data Randa rce(s) Supporting Document(s) ACHR BLOCK AB 6 % [facility] Reference range: 0 to 26 Repeated [...] developed and its performance characteristics determined by [facility]. It has not been cleared or approved by the US Food and Drug Administration. This test was performed in a CLIA certified laboratory and is intended for clinical purposes. Performed By: [facility] [address] [place] [address] Side Puller: Marisol Valadez MD ID Date Data Source [id number] 10/14/2020 05:28:22 PM EDT [facility] Name Value Range Interpretation Code Description Data Randa rce(s) Supporting Document(s) ACHR REC BIND AB 0.1 nmol/L [facility] Reference range: 0.0 to 0.4 INTERPRETIVE INFORMATION: [...] developed and its performance characteristics determined by [facility]. It has not been cleared or approved by the US Food and Drug Administration. This test was performed in a CLIA certified laboratory and is intended for clinical purposes. Performed By: [facility] [address] [place] [id number] Side Puller: Marisol Valadez MD ID Date Data Source [id number] 10/12/2020 06:42:01 AM EDT [facility] Name Value Range Interpretation Code Description Data Randa rce(s) Supporting Document(s) SODIUM 142 mmol/L (136-145) [facility] POTASSIUM 4.2 mmol/L (3.6-5.2) [facility] CHLORIDE 105 mmol/L (100-108) [facility] CO2 27 mmol/L (22-31) [facility] ANION GAP 10 mmol/L (7-16) [facility] UREA NITROGEN 6 mg/dL (7-24) L [facility] CREATININE 0.68 mg/dL (0.60-1.00) [facility] BUN/CREAT RATIO 8.8 RATIO (10.0-20.0) L [facility] GLUCOSE 73 mg/dL (70-99) [facility] CALCIUM 8.8 mg/dL (8.4-10.2) [facility] TOTAL PROTEIN 6.6 g/dL (6.4-8.2) [facility] ALBUMIN 3.4 g/dL (3.5-4.6) L [facility] GLOBULIN 3.2 g/dL (2.7-4.3) [facility] ALB/GLOB RATIO 1.1 RATIO [facility] ALKALINE PHOSPHATASE 67 U/L (45-117) [facility] BILIRUBIN,TOTAL 1.2 mg/dL (0.0-1.0) H [facility] PLEASE NOTE:Total bilirubin results may be falselyelevated in patients taking Eltrombopag. AST (SGOT) 10 U/L (11-39) L [facility] ALT (SGPT) 17 U/L (12-78) [facility] GFR >60 ml/min/1.73m2 (>59) [facility] GFR ( AMER) >60 ml/min/1.73m2 (>59) [facility] GFR INTERPRETATION [facility] --NORMAL KIDNEY FUNCTION OR MILD DISEASE - GFR >OR= 60CHRONIC KIDNEY DISEASE - GFR 15 - 59RENAL FAILURE - GFR <15 Est. GFR calculation based on the MDRDstudy equation, which assumes a steadystate for creatinine. Est. GFR should notbe used for medication dosing. ID Date Data Source [id number] 10/12/2020 06:42:01 AM EDT [facility] Name Value Range Interpretation Code Description Data Randa rce(s) Supporting Document(s) FREE THYROXINE @ 1.10 ng/dL (0.76-1.46) [facility] [address] ID Date Data Source [id number] 10/12/2020 06:42:01 AM EDT [facility] Name Value Range Interpretation Code Description Data Randa rce(s) Supporting Document(s) TSH,ULTRASENSITIVE @ 0.931 mIU/L (0.360-4.170) [facility] [address] [facility] [address] ID Date Data Source [id number] 10/12/2020 06:42:01 AM EDT [facility] Name Value Range Interpretation Code Description Data Randa rce(s) Supporting Document(s) MAGNESIUM 2.1 mg/dL (1.7-2.4) [facility] ID Date Data Source [id number] 10/12/2020 06:07:57 AM EDT [facility] Name Value Range Interpretation Code Description Data Randa rce(s) Supporting Document(s) WBC 8.7 10*3/uL (4.1-11.0) [facility] RBC 4.16 10*6/uL (4.00-5.40) [facility] HGB 12.1 g/dL (12.0-16.0) [facility] HCT 36.8 % (36.0-47.0) [facility] MCV 88.5 fL (80.0-95.0) [facility] MCH 29.0 pg (27.0-32.0) [facility] MCHC 32.8 g/dL (32.0-36.0) [facility] RDW 13.4 % (10.5-14.5) [facility] PLT 275 10*3/uL (150-450) [facility] MPV 9.6 fL (7.1-10.7) [facility] ID Date Data Source [id number] 10/11/2020 10:30:[address] [facility] [address] [facility] Emergency Department [address] [place] [address] Phone #: ext- [phone] 10/11/2020 10:27 Patient: AUGIE KAYE Sex: F : 1990 Age: 30yWEIGHT:117.9 kg [...] 11:35 Miles Peguero RN P.A.-C;Sed. Rate STAT 11:21 10/11/2020 11:35 Miles Peguero RN P.A.-C;BMP STAT 11:21 10/11/2020 11:35 Miles Peguero RN P.A.-C;Urinalysis (Clean STAT 11:21 10/11/2020 11:36 Yulan EDCatch) Aylin Covarrubias P.A.-C; [id number] STAT 11:29 10/11/2020 11:[address] [facility] Emergency Department [address] [place] [address] Phone #: ext- [phone] 10/11/2020 10:27 Patient: AUGIE KAYE Sex: F : 1990 Age: 30y Korina Peguero RN P.A.-C;BNP STAT 12:51 10/11/2020 12:58 Miles Peguero RN P.A.-C;HCG Urine Qual STAT 13:39 10/11/2020 13:58 Korina Sykes R.N. P.A.-C;COVID-19 CAH (Not STAT 17:02 10/11/2020 17:07 TerrySymptomatic as Korina Peguero RNDefined by [facility]) P.A.-C;([id number]) (NotFirst Test) (NotHospitalized) (Not) (NotResident inCongregate CareSetting) (NotEmployed inHealthcare Setting) NOTES: RAPID: TRANSFERDIAGNOSTIC STUDY ORDERSOrder Description Priority Entered Acknowledged InitialedCT Head W/O Cont STAT 14:06 10/11/2020 14:17 Miles(Oxygen?(No)) Korina Peguero RN P.A.-C; Reason for Study: weaknessCT CTA CHEST STAT 14:06 10/11/2020 14:17 Miles(NONCOR) W TAYE Peguero RNINC PP P.A.- C;(Oxygen?(No))(IV?(Yes)) Reason for Study: weakness and elevated d-dimerMEDICATION/IV/DRIP/FLUID ORDERSOrder Description Priority Entered Acknowledged InitialedIV NS : Bolus 500 11:21 10/11/2020 Cancelled: Patient Refusal 11:53 TerrymL, then 100 mL/hr Korina Peguero RN P.A.-C;IV NS : Bolus 500 13:39 10/11/2020 14:17 TerrymL, then 100 mL/hr Korina Peguero RN P.A.-C; [address] [facility] Emergency Department [address] [place] [address] Phone #: [phone] xlh- [phone] 10/11/2020 10:27 Patient: AUGIE KAYE Sex: F : 1990 Age: 30yGENERAL ORDERSOrder Description Priority Entered Acknowledged InitialedBlood Pressure 11:21 10/11/2020 11:34 JennayMonitlarisa Peguero RN P.A.-C;Division Merchandise Manager 11:10/11/2020 11:34 Miles(continuous) Korina Peguero RN P.A.-C;EKG 11:10/11/2020 11:34 Miles Peguero RN P.A.-C;NPO 11:21 10/11/2020 11:34 Miles Peguero RN P.A.-C;Obtain Old EKG 11:21 10/11/2020 11:34 Miles Peguero RN P.A.-C;Obtain Old Records 11:21 10/11/2020 11:34 Miles Peguero RN P.A.-C;Pulse oximeter 11:21 10/11/2020 11:34 Miles(Continuous) Korina Hill-Lane;Saline Lock 11:10/11/2020 11:34 Miles Walker.Magdalena-Lane;Vitals 11:10/11/2020 11:34 Miles Walker.Magdalena-Lane;[Electronically signed by Elsie Fregoso R.N. (18:48 )][Electronically signed by Korina Rodriguez P.A.-C (00:21 10/12/2020)][Electronically locked by Elsie Fregoso R.N. (18:48 10/11/2020)] Name Value Range Interpretation Code Description Data Randa rce(s) Supporting Document(s) ID Date Data Source [id number] 10/11/2020 10:30:[address] [facility] [address] [facility] Emergency Department [address] [place] [address] Phone #: ext- [phone] 10/11/2020 10:27 Patient: AUGIE KAYE Sex: F : 1990 Age: 30yWeight: 117.9 [...] rce(s) Supporting Document(s) ID Date Data Source [id number] 10/11/2020 10:30:[address] [facility] [address] [facility] Emergency Department [address] [place] [address] Phone #: ext- [phone] 10/11/2020 10:27 Patient: AUGIE KAYE Sex: F : 1990 Age: 30yWeight: 117.9 kgHeight/Length: 67 inBMI: 40.7ALLERGIES: No Known Drug Allergy Date/Time Medication Administered Medication OrderedStart IV NS IV NS : Bolus 500 mL, then 32773:17 10/11/2020 Dose: IV Fluids mL/Gui Peguero RN Rate: 100 mL/hr over 5 hour(s)---- Bolus: 500 mL over 30 minute(s)Stop Dispensed: 1000 mL bag18:30 10/11/2020 Site: #1 [facility], RTiffaniNTiffani Name Value Range Interpretation Code Description Data Randa rce(s) Supporting Document(s) ID Date Data Source [id number] 10/11/2020 10:30:[address] [facility] [address] [facility] Emergency Department [address] [place] [address] Phone #: ext- [phone] 10/11/2020 10:27 Patient: AUGIE KAYE Sex: F : 1990 Age: 30yAcute generalized weakness. (? MYASTHENIA GRAVIS).(Electronically signed by Korina Rodriguez P.A.-C 10/12/2020 00:21) Name Value Range Interpretation Code Description Data Randa rce(s) Supporting Document(s) ID Date Data Source [id number] 10/11/2020 10:30:[address] [facility] 1 Clinical Report - Nurses [facility] Emergency Department [address] [place] [address] Phone #: [phone] tah- [phone] 10/11/2020 10:27 Patient: AUGIE KAYE Sex: F : 1990 Age: 30yTRIAGEArrived by EMS. Historian: patient. Unaccompanied.Acuity: LEVEL 3.Chief Complaint: CHEST PAIN.Alert. No acute distress.This started today. ( Pt reprots waking up feeling heaviness/ pressure in arms and legs with int. chestpain).Treatment CANDLE CUTTER:None. --10:37 10/11/20 Simone Martinez10:36 10/11/20. BP: 144/94. [...] no deficiencies. 2 Clinical Report - Nurses [facility] Emergency Department [address] [place] [address] Phone #: ext- [phone] 10/11/2020 10:27 [id number] Sex: F : 1990 Age: 30y FUNCTIONAL [...] 10/11/20 Miles Peguero RN.NURSING PROGRESS NOTES10:45 10/11/20. cardiac monitor, NIBP monitor and pulse oximeter placed on patient; nuclear monitoring technician-Lead II; monitor alarms on; monitor strip added [...] RR: 16. O2 saturation: 100%. --11:02 10/11/[address] [facility] Tech1 11:11 10/11/2020 Site #1 started via [...] Miles Peguero RN Warming measures: blanket applied ([id number]). --11:54 10/11/20 Miles Peguero RN 3 Clinical Report - Nurses [facility] Emergency Department [address] [place] [address] Phone #: ext- [phone] 10/11/2020 10:27 Patient: AUGIE KAYE Sex: F : 1990 Age: 30y12:17 10/11/20. BP: 137/80. HR: 67. RR: 17. O2 saturation: 100%. --12:17 10/11/[address] [facility] Tech,[facility] Weaw612:40 10/11/20. BP: 137/82. HR: 76. RR: 19. O2 saturation: 100%. --12:40 10/11/20 [facility] Kraw1Uibnvbl patient name and birthdate. Blood samples drawn by tech: montse corado. (1300). --12:59 10/11/20Miles Peguero, RN13:41 10/11/20. BP: 148/99. HR: 74. RR: 18. O2 saturation: 100%. --13:42 10/11/20 [facility] Kvdy210:04 10/11/20. BP: 165/123. HR: 64. RR: 13. O2 saturation: 100%. --14:05 10/11/20 [facility] Elzo245:17 10/11/2020 Started bag #1 1000 mL IV Fluids IV NS; bolus of 500 mL over 30 minute(s) then at 100mL/hr over 5 hour(s) via site #1 via IV pump. Allergies verified and confirmed 5 rights. IV patencyestablished. IV site checked: no pain, redness, or swelling. IV flushed thoroughly pre- and post-medicationadministration. Information reviewed with patient. --14:17 10/11/20 Miles Peguero JIMMIEatikita transported to [place] by wheelchair with mask and aircraft avionics technician. ([id number]). --14:31 10/11/20 MilesMarinemaríaJIMMIEraymond returned from [place] by wheelchair with mask and aircraft avionics technician. ([id number]). --14:47 10/11/20 MilesMarielena RN15:05 10/11/20. BP: 140/87. HR: 71. RR: 17. O2 saturation: 98%. --15:05 10/11/20 [facility] Nfzh7Pvyi light placed in reach. Side rails up [...] 100 % and pulse 78 BPM). --15:42 10/11/20Miels Peguero RN15:42 10/11/20. BP: 115/99. MAP: 104. HR: 74. RR: 20. O2 saturation: 100% on room air. Pain level now:03/28. --15:43 10/11/20 Miles Peguero RN16:11 10/11/20. BP: 134/89. HR: 78. RR: 17. O2 saturation: 100%. --16:11 10/11/20 Yulan lithographic platemaker,Aylin, ER Faqe049:37 10/11/20. BP: 133/90. HR: 75. RR: 12. O2 saturation: 100%. --16:37 10/11/20 Yulan lithographic platemaker,Aylin, ER Tech1 4 Clinical Report - Nurses [facility] Emergency Department [address] [place] [address] Phone #: ext- [phone] 10/11/2020 10:27 Patient: AUGIE KAYE Sex: F : 1990 Age: 30y 18:13 [...] R.N.DISPOSITION / DISCHARGE 18:30 10/11/20. Transferred to [facility]. Visit overview, summary of care (CCDA), [...] rce(s) Supporting Document(s) ID Date Data Source [id number] 10/11/2020 10:30:[address] [facility] 1 Clinical Report - Physicians/Mid Levels [facility] Emergency Department [address] [place] [address] Phone #: ext- [phone] 10/11/2020 10:27 Patient: AUGIE KAYE Sex: F : 1990 Age: 30y Time [...] weakness upon waking today. Does see a quality assurance advisor. Called them and was unable to be seen. Went to the [facility] and they transferred pt to the ER [...] Pedal Edema. Gastroenteritis. 2 Clinical Report - Physicians/Mid [facility] Emergency Department [address] [place] [address] Phone #: ihh- [phone] 10/11/2020 10:27 Patient: AUGIE KAYE Sex: F : 1990 Age: 30y Gastroesophageal Reflux Disease. Heart Murmur. Additional Surgeries: Endoscopy. None. Medications: Omeprazole Oral 20 mg, daily. Allergies: No Known Drug Allergy.SOCIAL HISTORYNever smoker. No alcohol use or drug use.ADDITIONAL NOTESThe nursing notes have been reviewed.PHYSICAL EXAMVital Signs: 10/11/2020 10:36 BP: 144/94. MAP: 110. HR: 70. RR: 20. O2 saturation: 99% on room air.Temp: 98 F. Pain level now: 07/26. Have been reviewed. [...] 3 Clinical Report - P hysicians/Mid Levels [facility] Emergency Department [address] [place] [address] Phone #: ext- [phone] 10/11/2020 10:27 Patient: AUGIE KAYE Sex: F : 1990 Age: 30yReviewed by [...] Tests:Beta-HCG, Qual Urine: (AME: 10/11/2020 11:30) ( [facility] [place] 10/11/2020 13:45) Final results Test Result Flag Units (Reference) HCG URINE QUAL NEGATIVE (NORMAL: NEGAT HCG URINE QL REENTER NEGATIVE (NORMAL: NEGAT { KIT LOT # [id number] ){ KIT EXP DATE02/15/22 ){ PROCEDURAL CONTROL VALID)BNP: (AME: 10/11/2020 11:10) ( [facility] 10/11/[facility] 13:43) Final results Test Result Flag Units (Reference) BNP 42 PG/ML (0 - 125)D-Dimer: (AME: 10/11/2020 12:59) ( IngRcvd 10/11/2020 13:29) Final results Test Result Flag Units (Reference) D-DIMER QUANT 0.89 H ug/mL (0.27 - 0.50)CBC w Diff: (AME: 10/11/2020 11:10) ( [facility] 10/11/2020 11:31) Final results Test Result Flag [...] 0.10) 4 Clinical Report - Physicians/Mid Levels [facility] Emergency Department [address] [place] [address] Phone #: ext- [phone] 10/11/2020 10:27 Patient: AUGIE KAYE Sex: F : 1990 Age: 30y #NRBC [...] Male GFR Interprentation 20-49 yrs >60 mL/min Wwcknj50-42 yrs >56 mL/min Normal 60-69 yrs >49 mL/min Normal 70-79yrs>42 mL/min Normal 80 and above >35 mL/min Normal Female GFRInterpretation 20-39 yrs >60 mL/min Normal 40-49 yrs >58 mL/minNormal 50-59 yrs >51 mL/min Normal 60-69 yrs >45 mL/min Gzvufz36-40 yrs >39 mL/min Normal 80 and above >32 mL/min NormalLipase: (AME: 10/11/2020 11:10) ( MsgRcvd 10/11/2020 12:01) Final results Test Result Flag Units (Reference) LIPASE 18 U/L (13 - 60)Troponin-T: (AME: 10/11/2020 11:10) ( [facility] [place] 10/11/2020 11:47) Final results Test Result Flag Units (Reference) TROPONIN T <0.01 NG/ML (0.00 - 0.10) TROPONIN T0.1 ng/ml Recommended as the clinical threshold value forTroponin T.Magnesium: (AME: 10/11/2020 11:10) ( [facility] [place] 10/11/2020 12:01) Final results Test Result Flag Units (Reference) MAGNESIUM 1.8 MG/DL (1.7 - 2.2)TSH: (AME: 10/11/2020 11:10) ( [facility] [place] 10/11/2020 12:12) Final results Test Result Flag Units (Reference) TSH 0.55 uIU/mL (0.47 - 5.01)CRP: (AME: 10/11/2020 11:10) ( [facility] [place] 10/11/2020 12:02) Final results 5 Clinical Report - Physicians/Mid Levels [facility] Emergency Department [address] [place] [address] Phone #: ext- [phone] 10/11/2020 10:27 Patient: AUGIE KAYE Sex: F : 1990 Age: 30y Test Result Flag Units (Reference) CRP-HS 11.16 H MG/L (1.00 - 3.00) CDC/S HS-CRP CUT-OFF: RELATIVE RISK: <1.0 mg/L Low 1.0 - 3.0 mg/L Average >3.0 mg/L High Optimally, the average of HS-CRP results repeated two weeks apart should be used for risk assessment. Sed. Rate: (AME: 10/11/2020 11:10) ( [facility] [place] 10/11/2020 11:52) Final results Test Result Flag Units (Reference) SED RATE 44 H mm/hr (0 - 20) SED RATE REENTER 44 BMP: (AME: 10/11/2020 11:21) ( [facility] [place] 10/11/2020 11:23) Canceled Urinalysis: (AME: 10/11/2020 11:30) ( [facility] [place] 10/11/2020 11:52) Final results Test Result Flag [...] Not Indicate EKG: (AME: 10/11/2020 11:21) ( [facility] [place] 10/11/2020 14:03) In Progress.PROGRESS AND PROCEDURESCourse of [...] NV i ntact b/l UE. ? decreaed YINKA b/l LE. EOMI; PERRLA. No cough. Will order labs and imaging for further eval. PEnding result. REviewed results. Radiologist calls to discuss. Indicates ? MG. This would make sense as pt had c/o 6 Clinical Report - Physicians/Mid Levels [facility] Emergency Department [address] [place] [address] Phone #: [phone]- [phone] 10/11/2020 10:27 Patient: AUGIE KAYE Sex: F : 1990 Age: 30y worsening weakness, decreased O2 upon laying, and indicates she ntoed a eye droop yesterday. Attempted to ambulate pt and she is able to stand, but noted increased weakness to stand and abnormal gait. Pt has a 16:53 10/11/20. 1554 Called [facility] and no beds. 1607 Called [facility] and [...] to transfer explained to patient. Transferred to [facility]. UTI (catheter associated) was not present prior to transfer. Pressure ulcer was not present prior to transfer. Vascular infection (catheter associated) was not present prior to transfer.CLINICAL IMPRESSION Acute generalized weakness. (? MYASTHENIA GRAVIS).(Electronically signed by Korina Rodriguez P.A.-C 10/12/2020 00:21) Name Value Range Interpretation Code Description Data Randa rce(s) Supporting Document(s) ID Date Data Source [id number] 10/11/2020 08:56:00 PM EDT [facility] [address] [place] [address] RESPIRATORY CARE REPORT ==== ---------NAME------- NUMBER SEX AGE ADMIT DISC. XRAY# F/C DENISE GHOSH N [id number] F 30 10/11/20 10/11/2019781023 SB4 E/R DATE OF : 1990 M/R# [id number] PH#: [phone] TR-07 LOCATION: EMERGENCY DEPT [facility] [address] [facility] TE:10/11/20 13:56 [place] [address] PHYSICIAN: DARINEL RODRIGUEZ CH Name Value Range Interpretation Code Description Data Randa rce(s) Supporting Document(s) ID Date Data Source [id number] 10/11/2020 05:10:00 PM EDT [facility] Name Value Range Interpretation Code Description Data Randa rce(s) Supporting Document(s) COVID19 Case rprt NOT DETECTED [facility] This lab was ordered by [facility] AMANDA MORGAN and reported by [facility]. ID Date Data Source [id number] 10/11/2020 06:13:[address] [facility] NOT DETECTEDNOT DETECTED{ PROC EDURAL CONTROL [...] rce(s) Supporting Document(s) ID Date Data Source [id number] 10/11/2020 04:47:00 PM EDT [facility] [address] [place] [address] PHONE: [phone] FAX: [phone] Name .................. : MIKKI GHOSH Zehra Acct Number.................. : [id number] ROOM. ................. : TR-07 Number ................... : [id number] Stay type ............. : E/R Discharge Date......... ... : Admit Date ......... : 09/17 08/06 Admit Phys .................... : [facility] Date of ....... : 1990 Family Phys ................... : UNKNOWN Phone .................. : [phone] Age ................................ : 30 Film# .................. .:[id number] Sex ................................. : F Unsigned transcriptions are preliminary reports and do not represent a medical or legal document CT CTA CHEST NON-CORONARY Cindy Sherman [address] COMPLETE:10/11/20 14:06 Reason(s): weakness and elevated d-dimer [...] No pulmonary embolism. Page 1 of 2 [place] [address] PHONE: [phone] FAX: [phone] Name .................. : MIKKI GHOSH Zehra Acct Number.................. : [id number] ROOM. ................. : TR-07 MR Number ................... : [id number] Stay type ............. : E/R Discharge Date......... ... : Admit Date ......... : 10/11/20 [facility] of ....... : 1990 Family Phys ................... : UNKNOWN Phone .................. : [phone] Age ................................ : 30 Film# .................. .:[id number] Sex ................................. : F Unsigned transcriptions are preliminary reports and do not represent a medical or legal document CT CTA CHEST NON- CORONARY W C [address]64[address] COMPLETE:10/11/20 14:06 Reason(s): weakness and elevated d-dimer 2. Prominent thymus without a focal mass. This suggests hyperplasia. The patient has weakness. Thymic hyperplasia can be associated with myasthenia gravis. These findings were discussed with Korina PATINO in the emergency Department at 3:15 PM Electronically Reviewed and Signed By Dmai Mcrae MD , 10/11/20 16:47, JWS Transcribe Initials: BRANDON , Transcribe Date: 10/11/20 15:37, Dictation Date: Copy for: 010 EMERGENCY SRV Copy for: [facility] via fax Copy for: EMERGENCY DEPT via modem Copy for: 710 MED REC Page 2 of 2 Name Value Range Interpretation Code Description Data Randa rce(s) Supporting Document(s) ID Date Data Source [id number] 10/11/2020 03:53:00 PM EDT [facility] [address] [place] [address] PHONE: [phone] FAX: [phone] Name .................. : MIKKI Shahid Acct Number.................. : [id number] ROOM. ................. : TR-07 MR Number ................... : [id number] Stay type ............. : E/R Discharge Date......... ... : Admit Date ......... : 09/17 08/06 Admit Phys .................... : [facility] Date of ....... : 1990 Family Phys ................... : UNKNOWN Phone .................. : [phone] Age ................................ : 30 Film# .................. .:[id number] Sex ................................. : F Unsigned transcriptions are preliminary reports and do not represent a medical or legal document CT HEAD W/O CONTRAST [address] COMPLETE:10/11/20 14:06 Reason(s): weakness CT BRAIN WITHOUT [...] By Dami Mcrae MD , 10/11/20 15:53, JWUlices Transcribe Initials: DZ , Transcribe Date: 10/11/20 15:33, Dictation Date: Copy for: 010 EMERGENCY SRV Copy for: [facility]OD[facility] HUI via fax Page [address] of [address] [address] PHONE: [phone] FAX: [phone] Name .................. : MIKKI Shahid Acct Number.................. : [id number] ROOM. ................. : TR-07 Number ................... : [id number] Stay type ............. : E/R Discharge Date......... ... : Admit Date ......... : 10/11/20 Admit Phys .................... : [facility] Date of ....... : 1990 Family Phys ................... : UNKNOWN Phone .................. : [phone] Age ................................ : 30 Film# .................. .:[id number] Sex ................................. : F Unsigned transcriptions are preliminary reports and do not represent a medical or legal document CT HEAD W/O CONTRAST 25925 COM PLETE:10/11/20 14:06 Reason(s): weakness Copy for: EMERGENCY DEPT via modem Copy for: 710 MED REC Page 2 of 2 Name Value Range Interpretation Code Description Data Randa rce(s) Supporting Document(s) ID Date Data Source [id number] 10/11/2020 04:16:00 PM EDT [facility]) Name Value Range Interpretation Code Description Data Randa rce(s) Supporting Document(s) Troponin Laboratory test result [facility] ([facility]) Thyroid Stimulating Hormone 0.55 ME [facility] ([facility]) Magnesium Level 1.6 [facility] ([facility]) ID Date Data Source [id number] 10/11/2020 04:16:00 PM EDT [facility] ([facility]) Name Value Range Interpretation Code Description Data Randa rce(s) Supporting Document(s) Alanine aminotransferase [Enzymatic activity/volume] in Serum or Pl asma 10 [facility] ([facility]) Albumin [Mass/volume] in Serum or Plasma 4.5 [facility] ([facility]) Calcium [Mass/volume] in Serum or Plasma 9.9 [facility] ([facility]) Carbon dioxide, total [Moles/volume] in Serum or Plasma 25 [facility] ([facility]) Chloride [Moles/volume] in Serum or Plasma 105 [facility] ([facility]) Potassium [Moles/volume] in Serum or Plasma 4.0 [facility] ([facility]) Alkaline phosphatase [Enzymatic activity/volume] in Serum or Plasma 7 2 [facility] ([facility]) Sodium 140 [facility] ([facility]) Protein [Mass/volume] in Serum or Plasma 7.4 [facility] ([facility]) Aspartate aminotransferase [Enzymatic activity/volume] in Serum or Plasma 14 [facility] ([facility]) Urea nitrogen [Mass/volume] in Serum or Plasma 10 [facility] ([facility]) Glucose 87 70-100 [facility] ([facility]) Creatinine For GFR 0.6 [facility] ([facility]) ID Date Data Source [id number] 10/11/2020 04:16:00 PM EDT [facility] ([facility]) Name Value Range Interpretation Code Description Data Randa rce(s) Supporting Document(s) White Blood Count 9.8 4.3-10.9 [facility] [facility] Platelets 335 130-400 [facility] Red Blood Count 4.26 4.70-6.20 [facility] ([facility]) Hemoglobin 12.6 13.0-17.0 [facility] ([facility]) Hematocrit 37.4 39.0-50.0 [facility] (Cardiology [facility]) ID Date Data Source [id number] 10/11/2020 01:29:[address] [facility] Name Value Range Interpretation Code Description Data Randa rce(s) Supporting Document(s) Fibrin D-dimer FEU [Mass/volume] in Platelet poor plasma 0.89 ug /mL 0.27 - 0.[address] [facility] ID Date Data Source [id number] 10/11/2020 11:51:[address] [facility] Name Value Range Interpretation Code Description Data Randa rce(s) Supporting Document(s) URINALYSIS [facility] yellow NORMAL: Yellow [facility] CLARITY clear NORMAL: Clear [facility] Specific gravity of Urine by Test strip 1.015 1.001 - 1.030 [facility] pH 8 5 - 9 [facility] al Glucose [Mass/volume] in Urine by Test strip NORM [facility]: [facility] Bilirubin.total [Presence] in Urine by Test strip NEG NORMAL: Negative [facility] Ketones [Presence] in Urine by Test strip 15 NORMAL: Negative [facility] Protein [Mass/volume] in Urine by Test strip NEG [facility]AL: [facility] Nitrite [Presence] in Urine by Test strip NEG NORMAL: Negative [facility] BLOOD NEG NORMAL: Negative [facility] LEUK EST NEG NORMAL: Negative [facility] Urobilinogen [Mass/volume] in Urine by Test strip NOR less meena n 1.0 mg/dL [facility] MICROSCOPIC Not Indicate [facility] ID Date Data Source [id number] 10/11/2020 01:45:[address] [facility] Name Value Range Interpretation Code Description Data Randa rce(s) Supporting Document(s) HCG URINE QUAL NEGATIVE NORMAL: NEGATIVE [facility] HCG URINE QL REENTER NEGATIVE NORMAL: NEGATIVE [facility] { KIT LOT # [id number] ){ KIT EXP DATE 02/15/22 ){ PROCEDURAL CONTROL VALID ) ID Date Data Source [id number] 10/11/2020 12:12:[address] [facility] Name Value Range Interpretation Code Description Data Randa rce(s) Supporting Document(s) Thyrotropin [Units/volume] in Serum or Plasma by Detec tion limit <= 0.05 mIU/L 0.55 uIU/mL 0.47 - 5.01 [facility] ID Date Data Source [id number] 10/11/2020 12:02:[address] [facility] Name Value Range Interpretation Code Description Data Randa rce(s) Supporting Document(s) C reactive protein [Mass/volume] in Serum or Plasma by High sensitivity method 11.16 MG/L 1.00 - 3.[address] [facility] CDC/S HS-CRP CUT-OFF: RELATIVE RISK: <1.0 mg/L Low 1.0 - 3.0 mg/L Average >3.0 mg/L High Optimally, the average of HS-CRP results repeated two weeks apart should be used for risk assessment. ID Date Data Source [id number] 10/11/2020 12:02:[address] [facility] Name Value Range Interpretation Code Description Data Randa rce(s) Supporting Document(s) COMPREHENSIVE METABOLIC PANEL [facility] COMPREHENSIVE METABOLIC PANEL Sodium [Moles/volume] in Serum or Plasma 140 mEq/L 134 - 153 [facility] Potassium [Moles/volume] in Serum or Plasma 4.0 mEq/L 3.6 - 5.0 [facility] Chloride [Moles/volume] in Serum or Plasma 105 mEq/L 98 - 107 [facility] Carbon dioxide, total [Moles/volume] in Serum or Plasma 25 MEQ/L 22 - 30 [facility] Glucose [Mass/volume] in Serum or Plasma 87 MG/DL 70 - 99 [facility] BUN 6 MG/DL 7 - 21 [facility] Creatinine [Mass/volume] in Serum or Plasma 0.6 MG/DL 0.7 - 1.[address] [facility] BUN/CREAT 10 8 - 27 [facility] al Protein [Mass/volume] in Serum or Plasma 7.4 G/DL 6.3 - 8.2 [facility] Albumin [Mass/volume] in Serum or Plasma 4.5 G/DL 3.9 - 5.0 [facility] Globulin [Mass/volume] in Serum by calculation 2.9 GM/DL 2.4 - 3.2 [facility] A/G RATIO 1.6 0.8 - 2.0 [facility] Calcium [Mass/volume] in Serum or Plasma 9.9 MG/DL 8.4 - 10.2 [facility] Bilirubin.total [Mass/volume] in Serum or Plasma 0.8 MG/DL 0.2 - 1.3 [facility] Alkaline phosphatase [Enzymatic activity/volume] in Serum or Plasma 72 U/L 38 - 126 [facility] Aspartate aminotransferase [Enzymatic activity/volume] in Serum or Plasma 14 U/L 5 - 40 [facility] Alanine aminotransferase [Enzymatic activity/volume] in Seru m or Plasma 10 U/L 7 - 56 [facility] Anion gap 3 in Serum or Plasma 10.0 mmol/L 8.0 - 16.0 [facility] AGE 30 yrs [facility] NON-AA GFR >60 mL/min [facility] ital AFR AMER GFR >60 mL/min [facility] Male GFR In terprentation [...] >32 mL/min Normal ID Date Data Source [id number] 10/11/2020 12:01:[address] [facility] Name Value Range Interpretation Code Description Data Randa rce(s) Supporting Document(s) Magnesium [Mass/volume] in Serum or Plasma 1.8 MG/DL 1.7 - 2.2 [facility] ID Date Data Source [id number] 10/11/2020 12:01:[address] [facility] Name Value Range Interpretation Code Description Data Randa rce(s) Supporting Document(s) Lipase [Enzymatic activity/volume] in Serum or Plasma 18 U/L 13 - 60 [facility] ID Date Data Source [id number] 10/11/2020 11:52:[address] [facility] Name Value Range Interpretation Code Description Data Randa rce(s) Supporting Document(s) Erythrocyte sedimentation rate by Westergren method 44 mm/hr 0 - [address] [facility] SED RATE REENTER 44 [facility] ID Date Data Source [id number] 10/11/2020 11:47:[address] [facility] Name Value Range Interpretation Code Description Data Randa rce(s) Supporting Document(s) TROPONIN T <0.01 NG/ML 0.00 - 0.10 [facility] ospital TROPONIN T0.1 ng/ml Recommended as the c linical threshold value forTroponin T. ID Date Data Source [id number] 10/11/2020 11:31:[address] [facility] Name Value Range Interpretation Code Description Data Randa rce(s) Supporting Document(s) CBC W/AUTOMATED DIFF [facility] COMPLETE BLOOD COUNT Leukocytes [#/volume] in Blood by Automated count 9.8 10^3/uL 4.2 - [address] [facility] Erythrocytes [#/volume] in Blood by Automated count 4.26 10^6/uL 4. 20 - 5.40 [facility] Hemoglobin [Mass/volume] in Blood 12.6 g/dL 12.0 - 16.0 [facility] Hematocrit [Volume Fraction] of Blood by Automated count 37.4 % 3 7.0 - 47.0 [facility] Erythrocyte mean corpuscular volume [Entitic volume] by Auto mated count 87.8 fL 81.0 - 101 [facility] Erythrocyte mean corpuscular hemoglobin [Entitic mass] by Automated count 29.6 pg 27.0 - 34.0 [facility] Erythrocyte mean corpuscular hemoglobin concentration [Mass/volume] by Automated count 33.7 g/dL 31.0 - 36.0 [facility] Erythrocyte distribution width [Ratio] by Automated count 13.0 % 11.5 - 14.5 [facility] Platelets [#/volume] in Blood by Automated count 335 10^3/uL 150 - [address] [facility] Platelet mean volume [Entitic volume] in Blood by Automated count 10.8 fL 7.4 - 10.[address] [facility] Neutrophils/100 leukocytes in Blood by Automated count 81.7 % 37. 0 - 80.[address] [facility] Lymphocytes/100 leukocytes in Blood by Manual count 11.6 % 25.0 - 40.[address] [facility] Monocytes/100 leukocytes in Blood by Automated count 5.4 % 3.0 - 8.0 [facility] Eosinophils/100 leukocytes in Blood by Automated count 0.3 % 0.0 - 7.0 [facility] Basophils/100 leukocytes in Blood by Automated count 0.6 % 0.0 - 2.5 [facility] %IG 0.4 % 0.0 - 0.0 H [facility] %NRBC 0.0 % 0.0 - 0.0 [facility] al Neutrophils [#/volume] in Blood by Automated count 8.03 10^3/uL 2.00 - 6.[address] [facility] Lymphocytes [#/volume] in Blood by Automated count 1.14 10^3/uL 0.60 - 3.40 [facility] Monocytes [#/volume] in Blood by Automated count 0.53 10^3/uL 0.00 - 0.90 [facility] Eosinophils [#/volume] in Blood by Automated count 0.03 10^3/uL 0.00 - 0.70 [facility] Basophils [#/volume] in Blood by Automated count 0.06 10^3/uL 0.00 - 0.20 [facility] #IG 0.04 10^3/uL 0.00 - 0.10 [facility] #NRBC 0.00 10^3/uL 0.00 - 0.00 [facility] MANUAL DIFF NOT INDICATED [facility] RBC MORPH NOT INDICATED [facility] ID Date Data Source [id number] 10/11/2020 01:43:00 PM EDT [facility] Name Value Range Interpretation Code Description Data Randa rce(s) Supporting Document(s) BNP 42 PG/ML 0 - 125 [facility] ID Date Data Source [id number] 10/10/2020 05:44:00 AM EDT [facility] Name Value Range Interpretation Code Description Data Randa rce(s) Supporting Document(s) SARS-CoV-2 (COVID 19) NEGATIVE - SARS-CoV-2 (COVID19) [facility] This lab was ordered by [facility] a nd reported by [facility]. ID Date Data Source [id number] 10/08/2020 02:21:00 PM EDT [facility] ([facility]) Name Value Range Interpretation Code Description Data Randa rce(s) Supporting Document(s) Thyrotropin [Units/volume] in Serum or Plasma 0.904 uIU/ML 0.358-3.74 0 [facility] ([facility]) pending Lyme Titer ID Date Data Source [id number] 10/08/2020 02:21:00 PM EDT [facility] ([facility]) Name Value Range Interpretation Code Description Data Randa rce(s) Supporting Document(s) Lyme Disease IgG/IgM Antibodie Laboratory test result 0.00-0.90 [facility] ([facility]) pending Lyme Titer Lyme Disease IgM Ab Quantitati Laboratory test result 0.00-0.79 [facility] ([facility]) pending Lyme Titer ID Date Data Source [id number] 10/08/2020 02:21:00 PM EDT [facility] ([facility]) Name Value Range Interpretation Code Description Data Randa rce(s) Supporting Document(s) C reactive protein [Mass/volume] in Serum or Plasma by High sensitivity method 1.49 mg/dL 0.00-0.30 [facility] ([facility]) pending Lyme Titer Erythrocyte sedimentation rate by 2H Westergren method 35 mm/hr 0-2 0 [facility] ([facility]) pending Lyme Titer ID Date Data Source [id number] 10/08/2020 02:21:00 PM EDT [facility] ([facility]) Name Value Range Interpretation Code Description Data Randa rce(s) Supporting Document(s) Glucose, Fasting 79 mg/dL 70-100 [facility] ([facility]) pending Lyme Titer Blood Urea Nitrogen 8 mg/dL 7-18 [facility] ([facility]) pending Lyme Titer Creatinine For GFR 0.76 mg/dL 0.55-1.30 [facility] ([facility]) pending Lyme Titer Sodium Level 138 meq/L 136-145 [facility] ([facility]) pending Lyme Titer Glomerular Filtration Rate Laboratory test result [facility] ([facility]) pending Lyme Titer Potassium Serum 4.1 meq/L 3.5-5.1 [facility] ([facility]) pending Lyme Titer Chloride Level 104 meq/L 98-107 [facility] ([facility]) pending Lyme Titer Anion Gap 7 meq/L 8-16 [facility] ([facility]) pending Lyme Titer Carbon Dioxide Level 27 meq/L 21-32 [facility] ([facility]) pending Lyme Titer Calcium Level 9.4 mg/dL 8.5-10.1 [facility] ([facility]) pending Lyme Titer Ast/Sgot 14 U/L 7-37 [facility] ([facility]) pending Lyme Titer Alt/SGPT 20 U/L 12-78 [facility] ([facility]) pending Lyme Titer Alkaline Phosphatase 76 U/L 45-117 [facility] ([facility]) pending Lyme Titer Bilirubin,Total 0.7 mg/dL 0.2-1.0 [facility] ([facility]) pending Lyme Titer Total Protein 7.7 GM/DL 6.4-8.2 [facility] ([facility]) pending Lyme Titer Albumin/Globulin Ratio 1.0 1.2-2.2 [facility] ([facility]) pending Lyme Titer Albumin 3.8 GM/DL 3.2-5.2 [facility] ([facility]) pending Lyme Titer ID Date Data Source [id number] 10/08/2020 02:21:00 PM EDT [facility] ([facility]) Name Value Range Interpretation Code Description Data Randa rce(s) Supporting Document(s) Creatine kinase [Enzymatic activity/volume] in Serum or Plasma 74 U /L 26-192 [facility] ([facility]) pending Lyme Titer ID Date Data Source [id number] 10/08/2020 02:21:00 PM EDT [facility] ([facility]) Name Value Range Interpretation Code Description Data Randa rce(s) Supporting Document(s) White Blood Count 11.6 10 4.0-10.0 [facility] ([facility]) pending Lyme Titer Red Blood Count 4.47 10 4.00-5.40 [facility] ([facility]) pending Lyme Titer Hemoglobin 12.8 g/dL 12.0-15.5 [facility] ([facility]) pending Lyme Titer Hematocrit 39.4 % 36.0-47.0 [facility] ([facility]) pending Lyme Titer Mean Corpuscular Volume 88.1 fl 80.0-96.0 M [facility] ([facility]) pending Lyme Titer Mean Corpuscular Hemoglobin 28.6 pg 27.0-33.0 [facility] ([facility]) pending Lyme Titer Mean Corpuscular HGB Conc 32.5 g/dL 32.0-36.5 [facility] ([facility]) pending Lyme Titer Red Cell Distribution Width 12.9 % 11.5-14.5 [facility] ([facility]) pending Lyme Titer Platelet Count, Automated 344 10 150-450 [facility] ([facility]) pending Lyme Titer Neutrophils % 77.8 % 36.0-66.0 [facility] ([facility]) pending Lyme Titer Lymph % 14.3 % 24.0-44.0 [facility] ([facility]) pending Lyme Titer Baso % 0.6 % 0.0-1.0 [facility] ([facility]) pending Lyme Titer Eos % 0.6 % 0.0-3.0 [facility] ([facility]) pending Lyme Titer Story % 6.2 % 2.0-8.0 [facility] ([facility]) pending Lyme Titer Nucleated Red Blood Cell % 0.0 % 0-0 MED [facility] ([facility]) pending Lyme Titer Immature Granulocyte % 0.5 % 0-3.0 [facility] ([facility]) pending Lyme Titer Neutrophils # 9.1 10 1.5-8.5 [facility] ([facility]) pending Lyme Titer Lymph # 1.7 10 1.5-5.0 [facility] ([facility]) pending Lyme Titer Story # 0.7 10 0.0-0.8 [facility] ([facility]) pending Lyme Titer Eos # 0.1 10 0.0-0.5 [facility] ([facility]) pending Lyme Titer Baso # 0.1 10 0.0-0.2 [facility] ([facility]) pending Lyme Titer ID Date Data Source [id number] 10/08/2020 12:00:00 AM EDT [facility] Name Value Range Interpretation Code Description Data Randa rce(s) Supporting Document(s) SARS-[facility]2 Rapid Antigen [facility] This lab was reported by [facility]. ID Date Data Source [id number] 03/15/2020 12:00:00 AM EST [facility] Name Value Range Interpretation Code Description Data Randa rce(s) Supporting Document(s) SARS coronavirus 2 Ag Negative [facility] This lab was ordered by [facility] and reported by [facility]. ID Date Data Source [id number] 12/07/2019 12:00:00 AM EDT [facility] Name Value Range Interpretation Code Description Data Randa rce(s) Supporting Document(s) SARS coronavirus 2 Ag [facility] This lab was ordered by [facility] and reported by [facility]. ID Date Data Source [id number] 09/27/2020 01:19:00 [place] [address] RESPIRATORY CARE REPORT ==== ---------NAME------- NUMBER SEX AGE ADMIT DISC. XRAY# F/C DENISE GHOSH Zehra [id number] F 30 09/26/20 09/26/20 [id number] E/R DATE OF : 1990 M/R# [id number] #: [id number] TR-02 LOCATION: EMERGENCY DEPT G [id number] COMPLE TE:09/26/20 16:27 [place] [id number] PHYSICIAN: GABRIEL RODRIGUEZ CH Name Value Range Interpretation Code Description Data Randa rce(s) Supporting Document(s) ID Date Data Source [id number] 09/26/2020 02:15:[address] [facility] [address] [facility] Emergency Department [address] [place] [address] Phone #: ext- [phone] 09/26/2020 14:12 Patient: AUGIE KAYE Sex: F : 1990 Age: 30yWEIGHT:117.9 kg (S) HEIGHT:67 inches (S) BMI:40.7ALLERGIES: No Known Drug AllergyCHIEF COMPLAINT: dizzinessDIAGNOSIS: O/E - edema of feet, Dizziness, Hypertensive disorderLAB ORDERSOrder Description Priority Entered Acknowledged InitialedCBC w Diff STAT 14:51 09/26/2020 14:51 Korina Mayfield R.N. P.A.-C;CMP STAT 14:51 09/26/2020 14:51 Korina Mayfield R.N. P.A.-C;Lipase STAT 14:51 09/26/2020 14:51 Korina Mayfield [...] 14:52 Korina Mayfield R.N. P.A.-C; [address] [facility] Emergency Department [address] [place] [address] Phone #: ext- [phone] 09/26/2020 14:12 [id number] Sex: F : 1990 Age: 30yTroponin-T STAT 17:56 09/26/2020 17:56 Korina Mayfield.N. P.A.-C; NOTES: 3hr repeatDIAGNOSTIC STUDY ORDERSOrder Description Priority Entered Acknowledged InitialedUS Lower Ext STAT 14:51 09/26/2020 Ack'd: 14:52 15:09 Chaparro,Venous Bilateral Eleanor Johnson R.N.(Oxygen?(No)) P.A.-C; R.N. Reason for Study: L hamstring pain and R foot swelling with hx of dizzinessCT Head W/O Cont STAT 15:35 09/26/2020 Ack'd: 15:45 16:19 Chaparro,(Oxygen?(No)) Eleanor Johnson.N. P.A.-C; R.N. Reason for Study: dizzinessCT CTA CHEST STAT 15:35 09/26/2020 Ack'd: 15:45 16:19 Chaparro,(NONCOR) W CON Eleanor Johnson R.N.INC PP P.A.-C; R.N.(Oxygen?(No))(IV?(Yes)) Reason for Study: dizziness with elevated d-dimerMEDICATION/IV/DRIP/FLUID ORDERSOrder Description Priority Entered Acknowledged InitialedIV NS : Bolus 500 14:51 09/26/2020 Ack'd: 14:52 Eleanor Mayfield.N.mL, then 100 mL/hr Korina Rodriguez Cancelled: Patient Refusal 17:58 Chaparro, P.A.-C; Eleanor R.N.GENERAL ORDERSOrder Description Priority Entered Acknowledged InitialedBlood Pressure 14:51 09/26/2020 14:51 Chaparro,Monitor Korina Webster R.N. P.A.-C;Division Merchandise Manager 14:51 09/26/2020 14:51 Chaparro,(continuous) Korina Webster R.N. P.A.-C;EKG 14:51 09/26/2020 Ack'd: 14:52 15:35 Korina Poe Amber Lisa RN P.A.-C; R.N.NPO 14:51 09/26/2020 14:[address] [facility] Emergency Department [address] [place] [address] Phone #: ext- [phone] 09/26/2020 14:12 ----- Patient: AUGIE KAYE Sex: F : 1990 Age: 30y Korina Hill-Lane;Obtain Old EKG 14:51 09/26/2020 14:51 Korina Mayfield R.N., P.A.-C;Obtain Old Records 14:51 09/26/2020 14:51 Korina Mayfield R.N., P.A.-C;Pulse oximeter 14:51 09/26/2020 14:51 Chaparro(Continuous) Korina Hill-Lane;Saline Lock 14:51 09/26/2020 Ack'd: 14:52 15:50 Korina Mayfield Amber Amber R.N. P.A.-C; R.N.Vitals 14:51 09/26/2020 14:51 Korina Mayfield R.N., P.A.-C;[Electronically signed by Eleanor Mayfield R.N. (19:13 09/26/2020)][Electronically signed by Korina Rodriguez P.A.-C (20:22 09/26/2020)][Electronically locked by Eleanor Mayfield R.N. (19:13 09/26/2020)] Name Value Range Interpretation Code Description Data Randa rce(s) Supporting Document(s) ID Date Data Source [id number] 09/26/2020 02:15:[address] [facility] [address] [facility] Emergency Department [address] [place] [address] Phone #: ext- [phone] 09/26/2020 14:12 Patient: AUGIE KAYE Sex: F : 1990 Age: 30yWeight: 117.9 [...] Value Range Interpretation Code Description Data Randa e(s) Supporting Document(s) ID Date Data Source [id number] 09/26/2020 02:15:[address] [facility] [address] [facility] Emergency Department [address] [place] [address] Phone #: ext- [phone] 09/26/2020 14:12 Patient: AUGIE KAYE Sex: F : 1990 Age: 30yWeight: 117.9 kgHeight/Length: 67 inBMI: 40.7ALLERGIES: No Known Drug AllergyDate/Time Medication Administered Medication Ordered Name Value Range Interpretation Code Description Data Randa rce(s) Supporting Document(s) ID Date Data Source [id number] 09/26/2020 02:15:[address] [facility] [address] [facility] Emergency Department [address] [place] [address] Phone #: ext- [phone] 09/26/2020 14:12 Patient: AUGIE KAYE Sex: F : 1990 Age: 30yAcute dizzinessLeft [...] about: All medicines you take, including prescription, [id number], herbs, and supplements Any other symptoms you have Any health problems you are being treated for Any past major health problems you've had, such as a heart attack, balance issues, hearing problems, or blood pressure problems Anything that causes the dizziness to get worse or better [address] [facility] Emergency Department [address] [place] [address] Phone #: ext- [phone] 09/26/2020 14:12 Patient: AUGIE KAYE Sex: F : 1990 Age: 30yToday's exam [...] fast or hard (palpitations) [address] [facility] Emergency Department [address] [place] [address] Phone #: ext- [phone] 09/26/2020 14:12 Patient: AUGIE KAYE Sex: F : 1990 Age: 30y Passing out or seizure Trouble walking or speaking [phone] [employer] [place], [place] [id number]. All rights reserved. This information is not [...] you to come into the office at 4 [facility] Emergency Department [address] [place] [address] Phone #: ext- [phone] 09/26/2020 14:12 Patient: AUGIE KAYE Sex: F : 1990 Age: 30ydifferent times [...] buy blood pressure monitors at most pharmacies.The [place] [employer] advises the following guidelines for [...] kidney disease, and stroke.Call [address] [facility] Emergency Department [address] [place] [address] Phone #: ext- [phone] 09/26/2020 14:12 Patient: AUGIE KAYE Sex: F : 1990 Age: 30yCall 911 [...] Dizziness or dizziness with spinning feeling (vertigo) [employer]. [address] [place] [address]. All rights reserved. This information is not [...] the foot or leg [address] 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 [...] leg, ankle, or foot [address] [facility] Emergency Department [address] [place] [address] Phone #: ext- [phone] 09/26/2020 14:12 Patient: AUGIE KAYE Sex: F : 1990 Age: 30y Fever of 100.4F (38C) or higher, or as directed by your provider Weakness or dizziness Shaking chills Drenching sweats [phone] [employer]. [address] [place] [address], [place] [address]. All rights reserved. This information is not intended as asubstitute for professional medical care. Always follow your healthcare professional's instructions. You have been given the following additional information: Dizziness, Uncertain Cause Hypertension, To Be Confirmed Leg Swelling in a Single Leg(Electronically signed by Korina Rodriguez P.A.-C 09/26/2020 20:22) Name Value Range Interpretation Code Description Data Randa rce(s) Supporting Document(s) ID Date Data Source [id number] 09/26/2020 02:15:[address] [facility] 1 Clinical Report - Nurses [facility] Emergency Department [address] [place] [address] Phone #: ext- [phone] 09/26/2020 14:12 Patient: AUGIE KAYE Sex: F : 1990 Age: 30yTRIAGEArrived by [...] oriented (5); bestmotor response- obeys commands (6). --14:20 09/26/20 Eleanor Mayfield R.N.14:14 09/26/20. BP: 182/105. MAP: [...] --14:09/26/20 Eleanor Mayfield R.N.AllergiesNo Known Drug Allergy. --14:21 09/26/20 Eleanor Mayfield R.N.P ROBLEMS:Concussion.Contusion.Bronchitis.Atypical Chest Pain.Back Pain.Heart Murmur.Myofascial Strain. 2 Clinical Report - Nurses [facility] Emergency Department [address] [place] [address] Phone #: ext- [phone] 09/26/2020 14:12 --- [id number] Sex: F : 1990 Age: 30y Gastroenteritis. Gastroesophageal Reflux Disease. --14:09/26/20 Eleanor Mayfield R.N. Medication/allergy information source: the patient. --14:20 09/26/20 Eleanor Mayfield R.N. ADDITIONAL SURGERIES: Endoscopy. --14:09/26/20 [...] reach. Side 3 Clinical Report - Nurses [facility] Emergency Department [address] [place] [address] Phone #: ext- [phone] 09/26/2020 14:12 ---- Patient: AUGIE KAYE Sex: F : 1990 Age: 30yrails up x 2. Bed placed in lowest position. Brakes of bed on. Patient ready for evaluation- ED physiciannotified. --14:22 09/26/20 Eleanor Mayfield R.N.( Pt refusing saline lock at this time PA aware). --14:56 09/26/20 Eleanor Mayfield RTiffaniNTiffani15:07 09/26/20. BP: 182/105. MAP: 130. HR: 123. O2 saturation: 99%. --15:08 09/26/20 Martín CamposKG time: (late entry - 15:30 09/26/2020). EKG was performed by a tech and shown to the ED physician.--15:33 09/26/20 [id number] - 15:30 09/26/20. Monitoring of patient in place. Patient gowned. Reassurance given.Rounding: Position: states comfortable. Proximity of possessions / care items: call light within easy reach.Set expectations: advised patient of rounding protocol timing and asked if they needed anything else at thistime. The patient is calm and resting quietly. Patient waiting for lab and CT results. --16:00 09/26/20Eleanor Mayfield R.N.15:40 09/26/2020 Site #1 started via IV in the right antecubital space with an 20g angiocath; one attempt.Saline lock flushed with 5 mL saline. --15:40 09/26/20 Suellen Poe, RN16:01 09/26/20. BP: 153/108. MAP: 123. HR: 87. RR: 15. O2 saturation: 99%. --16:01 09/26/20 Margareth Camposs16:58 09/26/20. HR: 69. RR: 19. O2 saturation: 98%. --16:58 09/26/20 [facility] Aknj121:00 09/26/20. BP: 147/95. --17:00 09/26/20 [facility] [id number] entry - 16:40 09/26/20. Monitoring of patient [...] RR: 23. O2 saturation: 99%. --17:59 09/26/[address] [facility] TechAylin LAUREN [id number] gowned. Reassurance given.Rounding: Position: states comfortable. Proximity of possessions / care items: call light within easy reach.Set expectations: advised patient of rounding protocol timing and asked if they needed anything else at thistime. The patient is calm and resting quietly. Patient waiting for lab results. --18:24 09/26/20 Eleanor Mayfield R.N. 4 Clinical Report - Nurses [facility] Emergency Department [address] [place] [address] Phone #: ext- [phone] 09/26/2020 14:12 Patient: AUGIE KAYE Sex: F : 1990 Age: 30y 19:09 09/26/2020 Site #1 removed upon discharge. Catheter intact. Bandage applied. --19:11 09/26/20 Eleanor Mayfield R.N.DISPOSITION / DISCHARGE 19:02 0 09/26/20. BP: 143/86. HR: 78. RR: 16. O2 saturation: 98%. Temp: 98.1 F. Pain level now 0/10. --19:03 09/26/[address] [facility] TechAylin, LAUREN Tech1 Len Coma Scale: 15- eyes open- spontaneous (4); best verbal response- oriented (5); best motor response- obeys commands (6). Departure time: late entry - 19:09 09/26/2020. Condition at departure: improved and stable. No learning barriers present. Reviewed warnings. Reviewed referral to a primary care physician for followup. Patient verbalized understanding. Written instructions provided in [place]gu[place]. The patient was discharged by the physician. She was discharged home and unaccompanied at time of discharge. She left ambulatory and via private vehicle. Patient driving. --19:12 09/26/20 Eleanor Mayfield R.N.Locked/Released at 09/26/2020 19:13 by Eleanor Mayfield R.N. Name Value Range Interpretation Code Description Data Randa rce(s) Supporting Document(s) ID Date Data Source [id number] 09/26/2020 02:15:[address] [facility] 1 Clinical Report - Physicians/Mid Levels [facility] Emergency Department [address] [place] [address] Phone #: ext- [phone] 09/26/2020 14:12 Patient: AUGIE KAYE Sex: F : 1990 Age: 30y Time [...] daily. 2 Clinical Report - Physicians/Mid Levels [facility] Emergency Department [address] [place] [address] Phone #: ext- [phone] 09/26/2020 14:12 Patient: AUGIE KAYE Sex: F : 1990 Age: 30y Pepcid [...] with/by attending. Compared to previous. CT Head: (clementinaLes fregosoDami fregoso - 09/26/2020 4:41:30 PM NEG). The study was interpreted by the radiologist. 3 Clinical Report - Physicians/Mid Levels [facility] Emergency Department [address] [place] [address] Phone #: ext- [phone] 09/26/2020 14:12 Patient: AUGIE KAYE Sex: F : 1990 Age: 30yCTA Pulmonary Arteries: Thor ho James - 09/26/2020 4:56:32 PMneg.Lower Extremity Sonography: Negative exam on the right and left side. Thor ho James -09/26/2020 3:34:35 PMNEG. The study w as interpreted by the radiologist.Laboratory Tests:Troponin-T: (AME: 09/26/2020 18:25) ( MsgRcvd 09/26/2020 18:57) Final results Test Result Flag Units (Reference) TROPONIN T <0.01 NG/ML (0.00 - 0.10) TROPONIN T0.1 ng/ml Recommended as the clinical threshold value Claudine Aguirre.CT Head W/O Cont: (AME: 09/26/2020 15:35) ( MsgRcvd 09/26/2020 19:00) In ProgressCT HEAD W/O CONTRASTReason(s): dizzinessTRANSPORTATION: WC IV? O2? Oxygen?(No) Room: ED Exam CT HEAD W/O CONTRAST [facility] [address] [place] [address] PHONE: [phone] FAX: [phone] Name .................. : MIKKI Shahid Acct Number.................. : [id number] ROOM. ................. : TR-02 MR Number ................... : [id number] Stay type ............. : E/R Discharge Date......... ... : Admit Date ......... : 09/26/20 Admit Phys .................... : GABRIEL WILSON Date of ....... : 1990 Family Phys ................... : UNKNOWN Phone .................. : [phone] Age ................................ : 30 Film# .................. .:[id number] Sex ................................. : F Unsigned transcriptions are preliminary reports and do not represent a medical or legal document CT HEAD W/O CONTRAST 16147 COMPLETE:09/26/20 16:27 KBO [id number] Reason(s): dizziness CT BRAIN WITHOUT IV CONTRAST [...] effect. 4 Clinical Report - Physicians/Mid Levels [facility] Emergency Department [address] [place] [address] Phone #: ext- [phone] 09/26/2020 14:12 Patient: AUGIE KAYE Sex: F : 1990 Age: 30y Calvarium and skull base are within normal limits. To the extent included sinuses are clear. IMPRESSION: Negative study. Electronically Reviewed and Signed By DCTNAME , SIGNDATEMALU Transcribe Initials: BRANDON , Transcribe Date: 09/26/20 18:59, Dictation Date: <<REPDIST>> Page 1 of 1CT CTA CHEST NON-CORONARY W CON INC PP: (AME: 09/26/2020 15:35) ( MsgRcvd 09/26/2020 16:27) InProgressCT CTA CHEST NON-CORONARY W [...] results 5 Clinical Report - Physicians/Mid Levels [facility] Emergency Department [address] [place] [address] Phone #: ext- [phone] 09/26/2020 14:12 Patient: AUGIE KAYE Sex: F : 1990 Age: 30y Test [...] Male GFR Interprentation 20-49 yrs >60 mL/min Qicaov31-94 yrs >56 mL/min Normal 60-69 yrs >49 mL/min Normal 70-79yrs>42 mL/min Normal 80 and above >35 mL/min Normal Female GFRInterpretation 20-39 yrs >60 mL/min Normal 40-49 yrs >58 mL/minNormal 50-59 yrs >51 mL/min Normal 60-69 yrs >45 mL/min Xbrsvo58-63 yrs >39 mL/min Normal 80 and above >32 mL/min NormalLipase: (AME: 09/26/2020 14:58) ( [facility] 09/26/2020 15:23) Final results Test Result Flag Units (Reference) LIPASE 22 U/L (13 - 60)PT/PTT: (AME: 09/26/2020 14:58) ( [facility] [place] 09/26/2020 15:21) Final results Test Result Flag Units (Reference) PROTIME 12.9 SECONDS (11.0 - 15.5) INR 0.96 (0.93 - 1.23) PTT 41.1 H SECONDS (24.8 - 36.7) \\BLDo\\INR INTERPRETATION\\BLDx\\ Therapeutic range for Coumadin andrelated oral anticoagulants. -International Normalized Ratio (INR): 2.0 - 3.0 for VenousThrombosis, Pulmonary Embolus, Tissue heart valves, Acute ME Atrial Fibrillation, Valvular heart diseaseand recurrent Systemic Embolism. - International Normalized Ratio (INR): 2.5 - 3.5 forMechanical Prosthetic valve.Troponin-T: (AME: 09/26/2020 14:58) ( [facility] [place] 09/26/2020 15:27) Final results Test Result Flag Units (Reference) TROPONIN T <0.01 NG/ML (0.00 - 0.10) TROPONIN T0.1 ng/ml Recommended as the clinical threshold value forTroponin T.Magnesium: (AME: 09/26/2020 14:58) ( [facility] [place] 09/26/2020 15:24) Final results Test Result Flag Units (Reference) MAGNESIUM 1.9 MG/DL (1.7 - 2.2) 6 Clinical Report - Phy sicians/Mid Levels [facility] Emergency Department [address] [place] [address] Phone #: ext- [phone] 09/26/2020 14:12 Patient: AUGIE KAYE Sex: F : 1990 Age: 30yTSH: (AME: 09/26/2020 14:58) ( MsgRcvd 09/26/2020 15:34) Final results Test Result Flag [...] MICROSCOPIC Not IndicateD-Dimer: (AME: 09/26/2020 14:58) ( MsgRcvd 09/26/2020 15:21) Final results Test Result Flag Units (Reference) D-DIMER QUANT 1.34 H ug/mL (0.27 - 0.50)Beta-HCG, Qual Serum: (AME: 09/26/2020 14:58) ( MsgRcvd 09/26/2020 15:17) Final results Test Result Flag Units (Reference) HCG SERUM QUAL NEGATIVE (NORMAL: NEGAT HCG SERUM QL REENTER NEGATIVE (NORMAL: NEGAT { KIT LOT # [id number] ){ KIT EXP DATE02/15/22 ){ PROCEDURAL CONTROL VALID)US Lower Ext Venous Bilateral: (AME: 09/26/2020 14:51) ( MsgRcvd 09/26/2020 18:46) In ProgressUS DOPPLER VENOUS BILAT LEGReason(s): L hamstring pain and R foot swelling with hx of dizzinessTRANSPORTATION: WC IV? O2? Oxygen?(No) Room: ED Exam US DOPPLER VENOUS BILAT LEG [place] [address] [place] [address] PHONE: [phone] FAX: [phone] Name .................. : MIKKI Shahid Acct Number.................. : [id number] ROOM. ................. : TR-02 MR Number ................ ... : [id number] Stay type ............. : E/R Discharge Date......... ... : Admit Date ......... : 09/26/20 Admit Phys .................... : GABRIEL WILSON Date of ....... : 1990 Family Phys ................... : UNKNOWN Phone .................. : [phone] Age ................................ : 30 Film# .................. .:[id number] Sex ................................. : F 7 Clinical Report - Physicians/Mid Levels [facility] Emergency Department [address] [place] [address] Phone #: [phone]- [phone] 09/26/2020 14:12 Patient: AUGIE KAYE Sex: F : 1990 Age: 30y Unsigned transcriptions are preliminary reports and do not represent a medical or legal document DOPPLER VENOUS BILAT LEG [id number] COMPLETE:09/26/20 15:59 KNB [id number] Reason(s): L hamstring pain and R foot [...] venous thrombosis. Electronically Reviewed and Signed By LOLYE , SIGNDATEMALU Transcribe Initials: BRANDON , Transcribe Date: 09/26/20 18:45, Dictation Date: <<REPDIST>> Page 1 of 1.PROGRESS AND PROCEDURESCourse of Care: Enter room and pt lying peacefully in bed in [facility]. Patient stable. Denies any newissues, concerns, or [...] palps. 8 Clinical Report - Physicians/Mid Levels [facility] Emergency Department [address] [place] [address] Phone #: ext- [phone] 09/26/2020 14:12 Patient: AUGIE KAYE Sex: F : 1990 Age: 30y PE [...] fluids. 9 Clinical Report - Physicians/Mid Levels [facility] Emergency Department [address] [place] [address] Phone #: ext- [phone] 09/26/2020 14:12 Patient: AUGIE KAYE Zehra Sex: F : 1990 Age: 30y (Recommend [...] rce(s) Supporting Document(s) ID Date Data Source [id number] 09/26/2020 07:25:00 [place] [address] PHONE: [phone] FAX: [phone] Name .................. : MIKKI AUGIE Shahid Acct Number.................. : [id number] ROOM. ................. : TR-02 MR Number ................... : [id number] Stay type ............. : E/R Discharge Date......... ... : Admit Date ......... : 09/16 03/08 Admit Phys .................... : GABRIEL WILSON Date of ....... : 1990 Family Phys ................... : UNKNOWN Phone .................. : [phone] Age ................................ : 30 Film# .................. .:[id number] Sex ................................. : F Unsigned transcriptions are preliminary reports and do not represent a medical or legal document CT CTA CHEST NON-CORONARY [address] [address] COMPLETE:09/26/20 16:27 KBO [address]008 Reason(s): dizziness with elevated d-dimer CT CHEST [...] and Signed By Page 1 of 2 [facility] [address] [place] [address] PHONE: [phone] FAX: [phone] Name .................. : MIKKI Shahid Acct Number.................. : [id number] ROOM. ................. : TR-02 MR Number ................... : [id number] Stay type ............. : E/R Discharge Date......... ... : Admit Date ......... : 09/26/20 Admit Phys .................... : GABRIEL WILSON Date of ....... : 1990 Family Phys ................... : UNKNOWN Phone .................. : [phone] Age ................................ : 30 Film# ............... ... .:[id number] Sex ................................. : F Unsigned transcriptions are preliminary reports and do not represent a medical or legal document CT CTA CHEST NON-CORONARY [address] [address] COMPLETE:09/26/20 16:27 KBO 65171 Reason(s): dizziness with elevated d-dimer Dami Mcrae MD , 09/26/20 19:25, JWS Transcribe Initials: DZ , Transcribe Date: 09/26/20 19:04, Dictation Date: Copy for: [facility] via fax Copy for: EMERGENCY DEPT via modem Copy for: 710 MED REC DISCHARGED Page 2 of 2 Name Value Range Interpretation Code Description Data Randa rce(s) Supporting Document(s) ID Date Data Source [id number] 09/26/2020 07:25:00 [place] [address] PHONE: [phone] FAX: [phone] Name .................. : MIKKI Shahid Acct Number.................. : [id number] ROOM. ................. : TR-02 MR Number ................... : [id number] Stay type ............. : E/R Discharge Date......... ... : Admit Date ......... : 09/26/20 Admit Phys .................... : GABRIEL WILSON Date of ....... : 1990 Family Phys ................... : UNKNOWN Phone .................. : [phone] Age ................................ : 30 Film# .................. .:[id number] Sex ................................. : F Unsigned transcriptions are preliminary reports and do not represent a medical or legal document CT HEAD W/O CONTRAST 547[address] COMPLETE:09/26/20 16:27 KBO 39358 Reason(s): dizziness CT BRAIN WITHOUT IV CONTRAST [...] study. Electronically Reviewed and Signed By Dami Mcare MD , 09/26/20 19:25, JWUlices Transcribe Initials: BRANDON , Transcribe Date: 09/26/20 18:59, Dictation Date: Copy for: [facility] via fax Copy for: EMERGENCY DEPT via modem Page 1 of 2 [place] [address] PHONE: [phone] FAX: [phone] Name .................. : MIKKI GHOSH Zehra Acct Number.................. : [id number] ROOM. ................. : TR-02 MR Number ................... : [id number] Stay type ............. : E/R Discharge Date......... ... : Admit Date ......... : 09/26/20 Admit Phys .................... : GABRIEL WILSON Date of ....... : 1990 Family Phys ................... : UNKNOWN Phone .................. : [phone] Age ................................ : 30 Film# .................. .:[id number] Sex ................................. : F Unsigned transcriptions are preliminary reports and do not represent a medical or legal document CT HEAD W/O CONTRAST 50557 COMPLETE:09/26/20 16:27 KBO 24026 Reason(s): dizziness Copy for: 710 MED REC DISCHARGED Page 2 of 2 Name Value Range Interpretation Code Description Data Randa rce(s) Supporting Document(s) ID Date Data Source [id number] 09/26/2020 07:24:00 [place] [address] PHONE: [phone] FAX: [phone] Name .................. : MIKKI Shahid Acct Number.................. : [id number] ROOM. ................. : TR-02 Number ................... : [id number] Stay type ............. : E/R Discharge Date......... ... : Admit Date ......... : 0 09/26/20 Admit Phys .................... : GABRIEL WILSON Date of ....... : 1990 Family Phys ................... : UNKNOWN Phone .................. : [phone] Age ................................ : 30 Film# .................. .:[id number] Sex ................................. : F Unsigned transcriptions are preliminary reports and do not represent a medical or legal document DOPPLER VENOUS BILAT LEG 74666 COMPLETE:09/26/20 15:59 KNB 98320 Reason(s): L hamstring pain and R foot [...] rce(s) Supporting Document(s) ID Date Data Source [id number] 09/26/2020 06:57:00 PM EDT [facility] Name Value Range Interpretation Code Description Data Randa rce(s) Supporting Document(s) TROPONIN T <0.01 NG/ML 0.00 - 0.10 [facility] TROPONIN T0.1 ng/ml Recommended as the c linical threshold value forTroponin T. ID Date Data Source [id number] 09/26/2020 03:34:[address] [facility] Name Value Range Interpretation Code Description Data Randa rce(s) Supporting Document(s) Thyrotropin [Units/volume] in Serum or Plasma by Detec tion limit <= 0.05 mIU/L 0.83 uIU/mL 0.47 - 5.01 [facility] ID Date Data Source [id number] 09/26/2020 03:27:[address] [facility] Name Value Range Interpretation Code Description Data Randa rce(s) Supporting Document(s) TROPONIN T <0.01 NG/ML 0.00 - 0.10 [facility] ospital TROPONIN T0.1 ng/ml Recommended as the c linical threshold value forTroponin T. ID Date Data Source [id number] 09/26/2020 03:23:[address] [facility] Name Value Range Interpretation Code Description Data Randa rce(s) Supporting Document(s) Magnesium [Mass/volume] in Serum or Plasma 1.9 MG/DL 1.7 - 2.2 [facility] ID Date Data Source [id number] 09/26/2020 03:23:[address] [facility] Name Value Range Interpretation Code Description Data Randa rce(s) Supporting Document(s) Lipase [Enzymatic activity/volume] in Serum or Plasma 22 U/L 13 - 60 [facility] ID Date Data Source [id number] 09/26/2020 03:23:[address] [facility] Name Value Range Interpretation Code Description Data Randa rce(s) Supporting Document(s) COMPREHENSIVE METABOLIC PANEL [facility] COMPREHENSIVE METABOLIC PANEL Sodium [Moles/volume] in Serum or Plasma 135 mEq/L 134 - 153 [facility] Potassium [Moles/volume] in Serum or Plasma 3.8 mEq/L 3.6 - 5.0 [facility] Chloride [Moles/volume] in Serum or Plasma 102 mEq/L 98 - 107 [facility] Carbon dioxide, total [Moles/volume] in Serum or Plasma 23 MEQ/L 22 - 30 [facility] Glucose [Mass/volume] in Serum or Plasma 88 MG/DL 70 - 99 [facility] BUN 6 MG/DL 7 - 21 L [facility] al Creatinine [Mass/volume] in Serum or Plasma 0.6 MG/DL 0.7 - 1.[address] [facility] BUN/CREAT 10 8 - 27 [facility] Protein [Mass/volume] in Serum or Plasma 7.2 G/DL 6.3 - 8.2 [facility] Albumin [Mass/volume] in Serum or Plasma 3.7 G/DL 3.9 - 5.[address] [facility] Globulin [Mass/volume] in Serum by calculation 3.5 GM/DL 2.4 - 3.[address] [facility] A/G RATIO 1.1 0.8 - 2.0 [facility] Calcium [Mass/volume] in Serum or Plasma 9.2 MG/DL 8.4 - 10.2 [facility] Bilirubin.total [Mass/volume] in Serum or Plasma <0.7 MG/DL 0.2 - 1.3 [facility] Alkaline phosphatase [Enzymatic activity/volume] in Serum or Plasma 72 U/L 38 - 126 [facility] Aspartate aminotransferase [Enzymatic activity/volume] in Serum or Plasma 15 U/L 5 - 40 [facility] Alanine aminotransferase [Enzymatic activity/volume] in Seru m or Plasma 10 U/L 7 - 56 [facility] Anion gap 3 in Serum or Plasma 10.0 mmol/L 8.0 - 16.0 [facility] AGE 30 yrs [facility] al NON-AA GFR >60 mL/min [facility] ital AFR AMER GFR >60 mL/min [facility] Ho spital Male GFR In terprentation [...] >32 mL/min Normal ID Date Data Source [id number] 09/26/2020 03:21:[address] [facility] Name Value Range Interpretation Code Description Data Randa rce(s) Supporting Document(s) Fibrin D-dimer FEU [Mass/volume] in Platelet poor plasma 1.34 ug /mL 0.27 - 0.[address] [facility] ID Date Data Source [id number] 09/26/2020 03:20:[address] [facility] Name Value Range Interpretation Code Description Data Randa rce(s) Supporting Document(s) Prothrombin time (PT) 12.9 SECONDS 11.0 - 15.5 [facility] INR in Platelet poor plasma by Coagulation assay 0.96 0.93 - 1. 23 [facility] aPTT in Blood by Coagulation assay 41.1 SECONDS 24.8 - 36.[address] [facility] \\BLDo\\INR INTERPRETATION\\BLDx\\ Therapeutic range for Coumadin and related oral anticoagulants. - International Normalized Ratio (INR): 2.0 - 3.0 for Venous Thrombosis, Pulmonary Embolus, Tissue heart valves, Acute ME Atrial Fibrillation, Valvular heart disease and recurrent Systemic Embolism. - International Normalized Ratio (INR): 2.5 - 3.5 for Mechanical Prosthetic valve. ID Date Data Source [id number] 09/26/2020 03:17:[address] [facility] Name Value Range Interpretation Code Description Data Randa rce(s) Supporting Document(s) HCG SERUM QUAL NEGATIVE NORMAL: NEGATIVE [facility] HCG SERUM QL REENTER NEGATIVE NORMAL: NEGATIVE [facility] { KIT LOT # [id number] ){ KIT EXP DATE 02/15/22 ){ PROCEDURAL CONTROL VALID ) ID Date Data Source [id number] 09/26/2020 03:04:[address] [facility] Name Value Range Interpretation Code Description Data Randa rce(s) Supporting Document(s) CBC W/AUTOMATED DIFF [facility] COMPLETE BLOOD COUNT Leukocytes [#/volume] in Blood by Automated count 12.1 10^3/uL 4.2 - 11.[address] [facility] Erythrocytes [#/volume] in Blood by Automated count 4.63 10^6/uL 4. 20 - 5.40 [facility] Hemoglobin [Mass/volume] in Blood 13.7 g/dL 12.0 - 16.0 [facility] Hematocrit [Volume Fraction] of Blood by Automated count 40.3 % 3 7.0 - 47.0 [facility] Erythrocyte mean corpuscular volume [Entitic volume] by Auto mated count 87.0 fL 81.0 - 101 [facility] Erythrocyte mean corpuscular hemoglobin [Entitic mass] by Automated count 29.6 pg 27.0 - 34.0 [facility] Erythrocyte mean corpuscular hemoglobin concentration [Mass/volume] by Automated count 34.0 g/dL 31.0 - 36.0 [facility] Erythrocyte distribution width [Ratio] by Automated count 12.9 % 11.5 - 14.5 [facility] Platelets [#/volume] in Blood by Automated count 275 10^3/uL 150 - [address] [facility] Platelet mean volume [Entitic volume] in Blood by Automated count 10.7 fL 7.4 - 10.[address] [facility] Neutrophils/100 leukocytes in Blood by Automated count 77.1 % 37. 0 - 80.0 [facility] Lymphocytes/100 leukocytes in Blood by Manual count 14.6 % 25.0 - 40.[address] [facility] Monocytes/100 leukocytes in Blood by Automated count 6.2 % 3.0 - 8.0 [facility] Eosinophils/100 leukocytes in Blood by Automated count 1.3 % 0.0 - 7.0 [facility] Basophils/100 leukocytes in Blood by Automated count 0.5 % 0.0 - 2.5 [facility] %IG 0.3 % 0.0 - 0.0 [facility] %NRBC 0.0 % 0.0 - 0.0 [facility] al Neutrophils [#/volume] in Blood by Automated count 9.29 10^3/uL 2.00 - 6.[address] [facility] Lymphocytes [#/volume] in Blood by Automated count 1.76 10^3/uL 0.60 - 3.40 [facility] Monocytes [#/volume] in Blood by Automated count 0.75 10^3/uL 0.00 - 0.90 [facility] Eosinophils [#/volume] in Blood by Automated count 0.16 10^3/uL 0.00 - 0.70 [facility] Basophils [#/volume] in Blood by Automated count 0.06 10^3/uL 0.00 - 0.20 [facility] #IG 0.04 10^3/uL 0.00 - 0.10 [facility] #NRBC 0.00 10^3/uL 0.00 - 0.00 [facility] ospital MANUAL DIFF NOT INDICATED [facility] RBC MORPH NOT INDICATED [facility] ID Date Data Source [id number] 09/26/2020 03:21:[address] [facility] Name Value Range Interpretation Code Description Data Randa rce(s) Supporting Document(s) [facility] S[facility] COLOR yellow NORMAL: Yellow [facility] ospital CLARITY clear NORMAL: Clear [facility] Ho spital Specific gravity of Urine by Test strip 1.010 1.001 - 1.030 [facility] pH 6.5 5 - 9 [facility] Glucose [Mass/volume] in Urine by Test strip NORM NORMAL: Negat [facility] Bilirubin.total [Presence] in Urine by Test strip NEG NORMAL: Negative [facility] Ketones [Presence] in Urine by Test strip NEG NORMAL: Negative [facility] Protein [Mass/volume] in Urine by Test strip NEG NORMAL: Negat [facility] Nitrite [Presence] in Urine by Test strip NEG NORMAL: Negative [facility] BLOOD NEG NORMAL: Negative [facility] LEUK EST NEG NORMAL: Negative [facility] Urobilinogen [Mass/volume] in Urine by Test strip NOR less meena n 1.0 mg/dL [facility] MICROSCOPIC Not Indicate [facility] ID Date Data Source [id number] 09/23/2020 09:45:00 AM EDT [facility] Name Value Range Interpretation Code Description Data Randa rce(s) Supporting Document(s) SARS-CoV-2 RNA Resp Ql COLBY+probe NOT DETECTED [facility] This lab was ordered by AIDEN gil and reported by AIDEN Mcintyre. ID Date Data Source [id number] 09/18/2020 10:09:52 AM EDT [facility] Name Value Range Interpretation Code Description Data Randa rce(s) Supporting Document(s) [facility] [id number] jb2 [file] [id number]+c [file] [id number]== ID Date Data Source [id number] 09/17/2020 08:57:00 [place] [address] RESPIRATORY CARE REPORT ==== ---------NAME------- NUMBER SEX AGE ADMIT DISC. XRAY# F/C DENISE Shahid [id number] F 30 09/15/20 09/15/2019781023 SB4 E/R DATE OF : 1990 M/R# [id number] PH#: [phone] TR-07 LOCATION: [place] [id number] COMP LETE:09/16/20 06:50 [facility] [address] PHYSICIAN: DONATO Sherman Name Value Range Interpretation Code Description Data Randa rce(s) Supporting Document(s) ID Date Data Source [id number] 09/17/2020 09:29:00 [place] [address] PHONE: [phone] FAX: [phone] Name .................. : MIKKI GHOSH Zehra Acct Number.................. : [id number] ROOM. ................. : TR-07 Number ................... : [id number] Stay type ............. : E/R Discharge Date......... ... : Admit Date ......... : 09/15/20 Admit Phys .................... : DONATO Sherman Date of ....... : 1990 Family Phys ................... : UNKNOWN Phone .................. : [phone] Age ................................ : 30 Film# .................. .:[id number] Sex ................................. : F Unsigned transcriptions are preliminary reports and do not represent a medical or legal document CHEST 2 VIEWS 38330 COMPLETE:09/15/20 18:06 06237 Reason(s): Chest Pain CHEST X-RAY: 2-VIEWS COMPARISON: [...] By Tong Mcmahan MD , 09/17/20 09:29, [facility] Transcribe Initials: BRANDON , Transcribe Date: 09/15/20 19:30, Dictation Date: Copy for: EMERGENCY DEPT via modem Copy for: 710 MED REC DISCHARGED Page 1 of 1 Name Value Range Interpretation Code Description Data Randa rce(s) Supporting Document(s) ID Date Data Source [id number] 09/15/2020 05:46:[address] [facility] [address] [facility] Emergency Department [address] [place] [address] Phone #: ext- [phone] 09/15/2020 17:42 Patient: AUGIE KAYE Sex: F : 1990 Age: 30yWEIGHT:122.4 kg (S)ALLERGIES: None, NoneCHIEF COMPLAINT: back painDIAGNOSIS: Backache, Muscle strainLAB ORDERSOrder Description Priority Entered Acknowledged InitialedCMP STAT 18:06 09/15/2020 18:07 Donato Sykes Jack ; Eder CorreaCBC w Diff STAT 18:06 09/15/2020 18:07 Donato Sykes Jack ; Eder CorreaBeta-HCG, Qual STAT 18:07 09/15/2020 18:08 Mony,Urine [employer] ; Eder CorreaDIAGNOSTIC STUDY ORDERSOrder Description Priority Entered Acknowledged InitialedChest 2 View STAT 18:06 09/15/2020 18:07 Mony,(Oxygen?(No)) [employer] R.N. Reason for Study: Chest PainUS Gall Bladder STAT 18:07 09/15/2020 18:08 Mony,(Oxygen?(No)) [employer] R.N. Reason for Study: RUQ PainMEDICATION/IV/DRIP/FLUID ORDERSOrder Description Priority Entered Acknowledged InitialedMotrin 600 mg PO 18:06 09/15/2020 18:14 Sorbjulieta,X1 dose: 600 mg [employer] R.N.(NOW x1)GENERAL ORDERSOrder Description Priority Entered Acknowledged InitialedEKG 18:06 09/15/2020 18:07 Donato Sykes Jack ; Eder Correa[Electronically signed by Eder Sykes R.N. (19:44 09/15/2020)][Electronically signed by [employer] (20:40 09/15/2020)][Electronically locked by Eder Sykes R.N. (19:44 09/15/2020)] Name Value Range Interpretation Code Description Data Randa rce(s) Supporting Document(s) ID Date Data Source [id number] 09/15/2020 05:46:[address] [facility] [address] [facility] Emergency Department [address] [place] [address] Phone #: ext- [phone] 09/15/2020 17:42 Patient: AUGIE KAYE Sex: F : 1990 Age: 30yWeight: 122.4 [...] rce(s) Supporting Document(s) ID Date Data Source [id number] 09/15/2020 05:46:[address] [facility] [address] [facility] Emergency Department [address] [place] [address] Phone #: ext- [phone] 09/15/2020 17:42 Patient: AUGIE AKYE Sex: F : 1990 Age: 30yWeight: 122.4 kgHeight/Length: 67 inBMI: 42.3ALLERGIES: None, None Date/Time Medication Administered Medication OrderedGiven MOTRIN [PO] (IBUPROFEN) Motrin 600 mg PO X1 dose: 20885:09 09/15/2020 Dose: 600 mg Tablets PO mg (NOW x1)Eder Sykes R.N. Name Value Range Interpretation Code Description Data Randa rce(s) Supporting Document(s) ID Date Data Source [id number] 09/15/2020 05:46:[address] [facility] [address] [facility] Emergency Department [address] [place] [address] Phone #: ext- [phone] 09/15/2020 17:42 Patient: AUGIE KAYE Sex: F : 1990 Age: 30yAcute posterior [...] CLINIC Respective Team [place], , , [address] [address], , [place], [address] Follow up in two days as needed. [...] alternate ice and heat. [address] [facility] Emergency Department [address] [place] [address] Phone #: usk- [phone] 09/15/2020 17:42 Patient: AUGIE KAYE Sex: F : 1990 Age: 30y You may use utcp-bne-oagzlhx pain medicine to control pain, unless another [...] numb, or tingly Pain or swelling increases [id number] [employer]. [address] [place] [address]. All rights reserved. This information is not intended as asubstitute for professional medical care. Always follow your healthcare professional's instructions.Back Pain (Acute or Chronic) [address] [facility] Emergency Department [address] [place] [address] Phone #: ext- [phone] 09/15/2020 17:42 -- Patient: AUGIE KAYE Sex: F : 1990 Age: 30yBack pain [...] illness. Mechanical problems include: [address] [facility] Emergency Department [address] [place] [address] Phone #: ext- [phone] 09/15/2020 17:42 Patient: AUGIE KAYE Sex: F : 1990 Age: 30y Physical [...] painful area for [address] [facility] Emergency Department [address] [place] [address] Phone #: ext- [phone] 09/15/2020 17:42 Patient: AUGIE KAYE Sex: F : 1990 Age: 30y minutes [...] or are takingother medicines. You may use dcoc-khd-zgfthyu medicine as directed on the bottle to [...] to seek medical advice [address] [facility] Emergency Department [address] [place] [address] Phone #: ext- [phone] 09/15/2020 17:42 Patient: AUGIE KAYE Sex: F : 1990 Age: 30yCall your healthcare provider right away if any of these occur: Pain becomes worse or spreads to your legs Weakness or numbness in one or both legs Numbness in the groin or genital area 1999- 2019 [employer]. [address] [place] [address]. All rights reserved. This information is not intended as asubstitute for professional medical care. Always follow your healthcare professional's instructions. You have been given the following additional information: Muscle Strain, Extremity Back Pain (Acute or Chronic)(Electronically signed by [employer] 09/15/2020 20:40) Name Value Range Interpretation Code Description Data Randa rce(s) Supporting Document(s) ID Date Data Source [id number] 09/15/2020 05:46:[address] [facility] 1 Clinical Report - Nurses [facility] Emergency Department [address] [place] [address] Phone #: ext- [phone] 09/15/2020 17:42 Patient: AUGIE KAYE Sex: F : 1990 Age: 30yTRIAGEArrived by EMS. Historian: patient. Unaccompanied. ( presents with chest pain).Triage time: 17:44 09/15/2020. Acuity: LEVEL 3.Chief Complaint: CHEST PAIN.17:48 09/15/20. Alert. No acute distress.This started today. Onset. (1700). She has had nausea.Treatment CANDLE CUTTER:None.SEPSIS SCREEN: SEPSIS SCREEN NEGATIVE. No suspected or [...] Sykes R.N. 2 Clinical Report - Nurses [facility] Emergency Department [address] [place] [address] Phone #: ext- [phone] 09/15/2020 17:42 [id number] Sex: F : 1990 Age: 30y 17:48 09/15/20. Medication/allergy information source: the patient. --17:48 09/15/20 [...] treatment room. --17:48 09/15/20 Eder Sykes R.N.PHYSICAL VSGNZUBTOX14:48 09/15/20. To room via stretcher. Patient gowned.GENERAL [...] ED physician. 3 Clinical Report - Nurses [facility] Emergency Department [address] [place] [address] Phone #: ext- [phone] 09/15/2020 17:42 Patient: AUGIE KAYE Sex: F : 1990 Age: 30y --17:55 09/15/20 [facility] Hi ER Tech1 18:00 09/15/20. Reassurance given. Two patient [...] F. Pain level now 0/10. --19:33 09/15/20 [facility] Hi ER Tech1 19:27 09/15/20. Departure time: 19:37 [...] Patient verbalized understanding. Written instructions provided in [place]guillan. The patient was discharged by the physician. She was discharged home. She left ambulatory and via taxi. --19:43 09/15/20 Eder Sykes R.N.Locked/Released at 09/15/2020 19:44 by Eder Sykes R.N. Name Value Range Interpretation Code Description Data Randa rce(s) Supporting Document(s) ID Date Data Source [id number] 09/15/2020 05:46:[address] [facility] 1 Clinical Report - Physicians/Mid Levels [facility] Emergency Department [address] [place] [address] Phone #: ext- [phone] 09/15/2020 17:42 Patient: AUGIE KAYE Sex: F : 1990 Age: 30y Time [...] mg), daily. Allergies: 2 Clinical Report - Physicians/[facility] Emergency Department [address] [place] [address] Phone #: ext- [phone] 09/15/2020 17:42 Patient: AUGIE KAYE [facility]#: [id number] Sex: F : 1990 Age: 30y None. [...] NEGATIVE (NORMAL: NEGAT { KIT LOT # [id number] ){ KIT EXP DATE 02/15/22 ){ PROCEDURAL CONTROL VALID ) US Gall Bladder: (AME: 09/15/2020 18:07) ( MsgRcvd 09/15/2020 18:58) Final results Exam 3 Clinical Report - Physicians/Mid Levels [facility] Emergency Department [address] [place] [address] Phone #: ext- [phone] 09/15/2020 17:42 Patient: AUGIE KAYE Sex: F : 1990 Age: 30[place] [address] ---------NAME--------- NUMBER SEX AGE ADMIT DISC. XRAY# F/C TYPE MIKKI GHOSH N [id number] F 30 09/15/[id number] SB4 E/R DATE OF : 1990 M/R# [id number] #: [phone] TR-07 LOCATION: EMERGENCY DEPT TRANSCRIBED: 09/15/20 18:56 IF US GALLBLADDER 99219 COMPLETED:09/15/20 18:47 KNB 63013 Reason(s): RUQ Pain PHYSICIAN: DONATO Sherman R [...] 99) 4 Clinical Report - Physicians/Mid Levels [facility] Emergency Department [address] [place] [address] Phone #: ext- [phone] 09/15/2020 17:42 Patient: AUGIE KAYE Sex: F : 1990 Age: 30y BUN [...] Male GFR Interprentation 20-49 yrs >60 mL/min Xefwjj86-68 yrs >56 mL/min Normal 60-69 yrs >49 mL/min Normal 70-79yrs>42 mL/min Normal 80 and above >35 mL/min Normal Female GFRInterpretation 20-39 yrs >60 mL/min Normal 40-49 yrs >58 mL/minNormal 50-59 yrs >51 mL/min Normal 60-69 yrs >45 mL/min Npgkok68-64 yrs >39 mL/min Normal 80 and above [...] 19:32) In Progress Exam CHEST 2 VIEWS [facility] 5 Clinical Report - Physicians/Mid Levels [facility] Emergency Department [address] [place] [address] Phone #: ext- [phone] 09/15/2020 17:42 Patient: AUGIE KAYE Sex: F : 1990 Age: 30y [address] [place] [address] PHONE: [phone] FAX: [phone] Name .................. : MIKKI Shahid Acct Number.................. : [id number] ROOM. ................. : TR-07 MR Number ................... : [id number] Stay type ............. : E/R Discharge Date......... ... : Admit Date ......... : 09/15/20 Admit Phys .................... : DONATO Sherman Date of ....... : 1990 Family Phys ................... : UNKNOWN Phone .................. : [phone] Age ................................ : 30 Film# .................. .:[id number] Sex ................................. : F Unsigned transcriptions are preliminary reports and do not represent a medical or legal document CHEST 2 VIEWS 37958 COMPLETE:09/15/20 18:06 92508 Reason(s): Chest Pain CHEST X-RAY: 2-VIEWS COMPARISON: [...] Discharged. Condition: stable. 6 Clinical Report - Physicians/Mid Levels [facility] Emergency Department [address] [place] [address] Phone #: ext- [phone] 09/15/2020 17:42 Patient: AUGIE KAYE Sex: F : 1990 Age: 30yCLINICAL IMPRESSION [...] Follow-up with: [facility] Respective Team Hali Montoyastephanie [place], , , [address], , [place], [address] Follow up in two days as needed. Call for an appointment.(Electronically signed by [employer] 09/15/2020 20:40) Name Value Range Interpretation Code Description Data Randa rce(s) Supporting Document(s) ID Date Data Source [id number] 09/15/2020 06:56:00 PM EDT [facility] [address] [place] [address] ---------NAME--------- NUMBER SEX AGE ADMIT DISC. XRAY# F/C TYPE MIKKI GHOSH N [id number] F 30 09/15/2019781023 SB4 E/R DATE OF : 1990 M/R# [id number] PH#: [phone] TR-07 LOCATION: EMERGENCY DEPT TRANSCRIBED: 09/15/20 18:56 IF US GALLBLADDER [id number] COMPLETED:09/15/20 18:47 B [id number] Reason(s): RUQ Pain PHYSICIAN: DONATO Sherman R [...] rce(s) Supporting Document(s) ID Date Data Source [id number] 09/15/2020 07:21:[address] [facility] Name Value Range Interpretation Code Description Data Randa rce(s) Supporting Document(s) COMPREHENSIVE METABOLIC PANEL [facility] COMPREHENSIVE METABOLIC PANEL Sodium [Moles/volume] in Serum or Plasma 136 mEq/L 134 - 153 [facility] Potassium [Moles/volume] in Serum or Plasma 4.2 mEq/L 3.6 - 5.0 [facility] Chloride [Moles/volume] in Serum or Plasma 102 mEq/L 98 - 107 [facility] Carbon dioxide, total [Moles/volume] in Serum or Plasma 27 MEQ/L 22 - 30 [facility] Glucose [Mass/volume] in Serum or Plasma 95 MG/DL 70 - 99 [facility] BUN 5 MG/DL 7 - 21 L [facility] Creatinine [Mass/volume] in Serum or Plasma 0.7 MG/DL 0.7 - 1.5 [facility] BUN/CREAT 7 8 - 27 L [facility] Protein [Mass/volume] in Serum or Plasma 7.2 G/DL 6.3 - 8.2 [facility] Albumin [Mass/volume] in Serum or Plasma 3.9 G/DL 3.9 - 5.0 [facility] Globulin [Mass/volume] in Serum by calculation 3.3 GM/DL 2.4 - 3.[address] [facility] A/G RATIO 1.2 0.8 - 2.0 [facility] Calcium [Mass/volume] in Serum or Plasma 9.1 MG/DL 8.4 - 10.2 [facility] Bilirubin.total [Mass/volume] in Serum or Plasma <0.7 MG/DL 0.2 - 1.3 [facility] Alkaline phosphatase [Enzymatic activity/volume] in Serum or Plasma 72 U/L 38 - 126 [facility] Aspartate aminotransferase [Enzymatic activity/volume] in Serum or Plasma 15 U/L 5 - 40 [facility] Alanine aminotransferase [Enzymatic activity/volume] in Seru m or Plasma 12 U/L 7 - 56 [facility] Anion gap 3 in Serum or Plasma 7.0 mmol/L 8.0 - 16.[address] [facility] AGE 30 yrs [facility] al NON-AA GFR >60 mL/min [facility] ital AFR AMER GFR >60 mL/min [facility] Male GFR In terprentation [...] >32 mL/min Normal ID Date Data Source [id number] 09/15/2020 07:08:[address] [facility] Name Value Range Interpretation Code Description Data Randa rce(s) Supporting Document(s) CBC W/AUTOMATED DIFF [facility] COMPLETE BLOOD COUNT Leukocytes [#/volume] in Blood by Automated count 12.3 10^3/uL 4.2 - 11.[address] [facility] Erythrocytes [#/volume] in Blood by Automated count 4.33 10^6/uL 4. 20 - 5.40 [facility] Hemoglobin [Mass/volume] in Blood 12.8 g/dL 12.0 - 16.0 [facility] Hematocrit [Volume Fraction] of Blood by Automated count 38.2 % 3 7.0 - 47.0 [facility] Erythrocyte mean corpuscular volume [Entitic volume] by Auto mated count 88.2 fL 81.0 - 101 [facility] Erythrocyte mean corpuscular hemoglobin [Entitic mass] by Automated count 29.6 pg 27.0 - 34.0 [facility] Erythrocyte mean corpuscular hemoglobin concentration [Mass/volume] by Automated count 33.5 g/dL 31.0 - 36.0 [facility] Erythrocyte distribution width [Ratio] by Automated count 12.9 % 11.5 - 14.5 [facility] Platelets [#/volume] in Blood by Automated count 288 10^3/uL 150 - [address] [facility] Platelet mean volume [Entitic volume] in Blood by Automated count 10.7 fL 7.4 - 10.[address] [facility] Neutrophils/100 leukocytes in Blood by Automated count 77.6 % 37. 0 - 80.0 [facility] Lymphocytes/100 leukocytes in Blood by Manual count 13.4 % 25.0 - 40.[address] [facility] Monocytes/100 leukocytes in Blood by Automated count 7.0 % 3.0 - 8.0 [facility] Eosinophils/100 leukocytes in Blood by Automated count 1.1 % 0.0 - 7.0 [facility] Basophils/100 leukocytes in Blood by Automated count 0.6 % 0.0 - 2.5 [facility] %IG 0.3 % 0.0 - 0.0 H [facility] %NRBC 0.0 % 0.0 - 0.0 [facility] al Neutrophils [#/volume] in Blood by Automated count 9.56 10^3/uL 2.00 - 6.[address] [facility] Lymphocytes [#/volume] in Blood by Automated count 1.65 10^3/uL 0.60 - 3.40 [facility] Monocytes [#/volume] in Blood by Automated count 0.86 10^3/uL 0.00 - 0.90 [facility] Eosinophils [#/volume] in Blood by Automated count 0.13 10^3/uL 0.00 - 0.70 [facility] Basophils [#/volume] in Blood by Automated count 0.07 10^3/uL 0.00 - 0.20 [facility] #IG 0.04 10^3/uL 0.00 - 0.10 [facility] #NRBC 0.00 10^3/uL 0.00 - 0.00 [facility] MANUAL DIFF NOT INDICATED [facility] RBC MORPH NOT INDICATED [facility] spital ID Date Data Source [id number] 09/15/2020 06:48:[address] [facility] Name Value Range Interpretation Code Description Data Randa rce(s) Supporting Document(s) HCG URINE QUAL NEGATIVE NORMAL: NEGATIVE [facility] HCG URINE QL REENTER NEGATIVE NORMAL: NEGATIVE [facility] { KIT LOT # [id number] ){ KIT EXP DATE 02/15/22 ){ PROCEDURAL CONTROL VALID ) ID Date Data Source [id number] 09/15/2020 03:53:00 PM EDT [facility]) Name Value Range Interpretation Code Description Data Randa rce(s) Supporting Document(s) Albumin [Mass/volume] in Serum or Plasma 3.9 [facility] ([facility]) Alanine aminotransferase [Enzymatic activity/volume] in Serum or Pl asma 12 [facility] ([facility]) Calcium [Mass/volume] in Serum or Plasma 9.1 [facility] ([facility]) Carbon dioxide, total [Moles/volume] in Serum or Plasma 27 [facility]) Alkaline phosphatase [Enzymatic activity/volume] in Serum or Plasma 7 2 [facility] ([facility]) Chloride [Moles/volume] in Serum or Plasma 102 [facility]) Protein [Mass/volume] in Serum or Plasma 7.2 [facility] ([facility]) Potassium [Moles/volume] in Serum or Plasma 4.2 [facility] ([facility]) Sodium 136 [facility] Aspartate aminotransferase [Enzymatic activity/volume] in Serum or Plasma 15 [facility]) Glucose 95 70-99 [facility] (Cardiology A [facility]) Creatinine For GFR 0.7 [facility] Urea nitrogen [Mass/volume] in Serum or Plasma 7 [facility] (Cardiology [facility]) ID Date Data Source [id number] 09/15/2020 03:53:00 PM EDT [facility] ([facility]) Name Value Range Interpretation Code Description Data Randa rce(s) Supporting Document(s) White Blood Count 12.3 4.2-11.0 [facility] Red Blood Count 4.33 4.20-5.40 [facility] ([facility]io [facility]) Platelets 288 130-400 [facility] (Cardiology A [facility]) Hemoglobin 12.8 12.0-16.0 [facility] (Cardiology [facility]) Hematocrit 38.2 37.0-47.0 [facility] (Cardiology [facility]) ID Date Data Source [id number] 09/03/2020 10:07:00 AM EDT [facility] ([facility]) Name Value Range Interpretation Code Description Data Randa rce(s) Supporting Document(s) Troponin Laboratory test result [facility] (Cardiology [facility]) ID Date Data Source [id number] 09/03/2020 10:07:00 AM EDT [facility] ([facility]) Name Value Range Interpretation Code Description Data Randa rce(s) Supporting Document(s) Creatine kinase [Enzymatic activity/volume] in Serum or Plasma 90 [facility] (Cardiology [facility]) CPK-MB Laboratory test result [facility] (Cardiology [facility]) ID Date Data Source [id number] 09/03/2020 10:07:00 AM EDT [facility] ([facility]) Name Value Range Interpretation Code Description Data Randa rce(s) Supporting Document(s) White Blood Count 11.5 4.0-10.0 [facility] Red Blood Count 4.76 4.00-5.40 [facility] ([facility]io [facility]) Platelets 281 150-450 [facility] (Cardiology A [facility]) Hematocrit 42.5 [facility] ([facility]) Hemoglobin 14.0 [facility] ([facility]) ID Date Data Source [id number] 09/03/2020 10:07:00 AM EDT [facility] ([facility]) Name Value Range Interpretation Code Description Data Randa rce(s) Supporting Document(s) Aspartate aminotransferase [Enzymatic activity/volume] in Se rum or Plasma 18 15-37 [facility] ([facility]) Alanine aminotransferase [Enzymatic activity/volume] i n Serum or Plasma 24 30-65 [facility] ([facility]) Alk Phos 67 50-136 [facility] ([facility]iology A [facility]) Total Bilirubin 0.2 0.0-1.0 [facility] ([facility]) Albumin 3.7 3.2-5.2 [facility] ([facility] Total Protein 7.6 6.4-8.2 [facility] (Cardiolo [facility]) A/G Ratio Laboratory test result 1.00-1.93 [facility] ([facility]) ID Date Data Source [id number] 08/30/2020 08:30:00 AM EDT [facility] Name Value Range Interpretation Code Description Data Randa rce(s) Supporting Document(s) SARS-CoV-2 RNA Resp Ql COLBY+probe NOT DETECTED [facility] This lab was ordered by AIDEN gil and reported by AIDEN Mcintyre. 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 We willcontinue to follow federal and state requirements for COVID-19reporting. This test was developed and its performance characteristicsdetermined by [employer]. It has not been cleared orapproved by [...] agencies as required. ID Date Data Source [id number] 04/21/2020 11:30:00 AM EST [facility] Name Value Range Interpretation Code Description Data Randa rce(s) Supporting Document(s) SARS coronavirus 2 RNA [Presence] in Res piratory specimen by COLBY with probe detection NEGATIVE [facility] This lab was ordered by [facility] and reported by [facility]. ID Date Data Source [id number] 04/21/2020 12:00:00 AM EST [facility] Name Value Range Interpretation Code Description Data Randa rce(s) Supporting Document(s) Carestart Rapid COVID Antigen Test Negative [facility] This lab was reported by [facility] Rui navarrete. ID Date Data Source [id number] 03/13/2020 12:00:00 PM EST [facility] ([facility]) Name Value Range Interpretation Code Description Data Randa rce(s) Supporting Document(s) Laboratory test finding (navigational concept) Laboratory test result [facility] ([facility], [facility]) Laboratory test finding (navigational concept) Laboratory test result [facility] ([facility], [facility]) Laboratory test finding (navigational concept) 6.0 units 5.0-9.0 [facility] ([facility], [facility]) Laboratory test finding (navigational concept) 1.006 1.002-1.035 [facility] ([facility], [facility]) Laboratory test finding (navigational concept) Laboratory test result [facility] ([facility], [facility]) Laboratory test finding (navigational concept) 0.2 mg/dL 0.0-2.0 [facility] ([facility], [facility]) Laboratory test finding (navigational concept) Laboratory test result [facility] ([facility], [facility]) Laboratory test finding (navigational concept) Laboratory test result [facility] ([facility], [facility]) Laboratory test finding (navigational concept) Laboratory test result [facility] ([facility], [facility]) Laboratory test finding (navigational concept) Laboratory test result [facility] ([facility], [facility]) Laboratory test finding (navigational concept) Laboratory test result [facility] ([facility], [facility]) Laboratory test finding (navigational concept) Laboratory test result [facility] ([facility], [facility]) Laboratory test finding (navigational concept) 0 /HPF 0-3 [facility] ([facility], [facility]) Laboratory test finding (navigational concept) Laboratory test result [facility] ([facility], [facility]) Laboratory test finding (navigational concept) 1 /HPF 0-3 [facility] ([facility], [facility]) Laboratory test finding (navigational concept) 0 /HPF 0-6 [facility] ([facility], [facility]) Laboratory test finding (navigational concept) 0 /LPF 0-1 [facility] ([facility], [facility]) ID Date Data Source [id number] 03/13/2020 11:34:00 AM EST [facility] ([facility]) Name Value Range Interpretation Code Description Data Randa rce(s) Supporting Document(s) Lipoprotein lipase [Enzymatic activity/volume] in Serum or Plasm a 91 U/L 73-393 [facility] ([facility], [facility]) ID Date Data Source [id number] 03/13/2020 11:34:00 AM EST [facility] ([facility]) Name Value Range Interpretation Code Description Data Randa rce(s) Supporting Document(s) Glucose, Fasting 82 mg/dL 70-100 [facility] ([facility], [facility]) Blood Urea Nitrogen 11 mg/dL 7-18 [facility] ([facility], [facility]) Creatinine For GFR 0.82 mg/dL 0.55-1.30 [facility] ([facility], [facility]) Glomerular Filtration Rate Laboratory test result [facility] ([facility], [facility]) <content>Units are mL/min/1.73 m2</content>
<content></content>
<content>Chronic Kidney Disease Staging per NKF:</content>
<content></content>
<content>Stage I & II GFR >=60 Normal to Mildly Decreased</content>
<content>Stage III GFR 30-59 Moderately Decreased</content>
<content>Stage IV GFR 15-29 Severely Decreased</content>
<content>Stage V GFR <15 Very Little GFR Left</content>
<content>ESRD GFR <15 on SCREW CUTTER</content>
<content></content> Sodium Level 138 meq/L 136-145 [facility] ([facility], [facility]) Carbon Dioxide Level 29 meq/L 21-32 [facility] ([facility], [facility]) Chloride Level 105 meq/L 98-107 [facility] ([facility], [facility]) Potassium Serum 4.1 meq/L 3.5-5.1 [facility] ([facility], [facility]) Calcium Level 9.5 mg/dL 8.5-10.1 [facility] ([facility], [facility]) Anion Gap 4 meq/L 8-16 [facility] ([facility], [facility]) ID Date Data Source [id number] 03/13/2020 11:34:00 AM EST [facility] ([facility]) Name Value Range Interpretation Code Description Data Randa rce(s) Supporting Document(s) Ast/Sgot 11 U/L 7-37 [facility] ([facility], [facility]) Alt/SGPT 20 U/L 12-78 [facility] ([facility], [facility]) Alkaline Phosphatase 75 U/L 45-117 [facility] ( [facility] Bilirubin,Total 1.1 mg/dL 0.2-1.0 [facility] ([facility], [facility]) Bilirubin,Direct 0.2 mg/dL 0.0-0.2 [facility] ([facility], [facility]) Albumin 3.8 GM/DL 3.2-5.2 [facility] ([facility], [facility]) Total Protein 7.7 GM/DL 6.4-8.2 [facility] ([facility], [facility]) Albumin/Globulin Ratio 1.0 1.2-2.2 [facility] ([facility], [facility]) ID Date Data Source [id number] 03/13/2020 11:34:00 AM EST [facility] ([facility]) Name Value Range Interpretation Code Description Data Randa rce(s) Supporting Document(s) CPK Creatine Phosphokinase 85 U/L 26-192 [facility]) CK-MB Value Mass Laboratory test result [facility]) MB/CK Relative Index 1.18 [facility] ([facility], [facility]) <content>DIAGNOSIS CRITERIA</content>
<content>MMB ng/ml Relative Index (RI)</content>
<content>NON-AMI < or = 5 N/A</content>
<content>BARAKAT ZONE > 5 < or = 4</content>
<content>AMI > 5 > 4</content>
<content></content> Troponin I Laboratory test result [facility] ([facility]) <content>Troponin I Reference Interval f or Siemens Sayre LOCI:</content>
<content></content>
<content>99th Percentile= 0.00-0.045 ng/ml</content>
<content></content>
<content>Risk Stratification:</content>
<content><= 0.10 ng/ml Decreased Risk for Adverse Clinical</content>
<content>Events.</content>
<content>0.10-1.50 ng/ml Increased Risk for Adverse Clinical</content>
<content>Events. Evaluation of additional</content>
<content>criterion and/or repeat testing in 2-6</content>
<content>hours is suggested to rule out myocardial</content>
<content>damage.</content>
<content>>= 1.50 ng/ml Indicative of Myocardial Injury.</content>
<content></content> ID Date Data Source [id number] 03/13/2020 11:34:00 AM EST [facility] ([facility]) Name Value Range Interpretation Code Description Data Randa rce(s) Supporting Document(s) White Blood Count 12.3 10 4.0-10.0 [facility] ([facility], [facility]) Red Blood Count 4.53 10 4.00-5.40 [facility] ([facility], [facility]) Hemoglobin 13.3 g/dL 12.0-15.5 [facility] ([facility] Hematocrit 40.6 % 36.0-47.0 [facility]) Mean Corpuscular Volume 89.6 fl 80.0-96.0 M ED[facility] ([facility], [facility]) Mean Corpuscular HGB Conc 32.8 g/dL 32.0-36.5 [facility] ([facility], [facility]) Mean Corpuscular Hemoglobin 29.4 pg 27.0-33.0 [facility] ([facility], [facility]) Red Cell Distribution Width 13.1 % 11.5-14.5 [facility] ([facility], [facility]) Neutrophils % 78.5 % 36.0-66.0 [facility] ([facility], [facility]) Lymph % 13.0 % 24.0-44.0 [facility] ([facility], [facility]) Platelet Count, Automated 279 10 150-450 [facility] ([facility], [facility]) Eos % 0.8 % 0.0-3.0 [facility] ([facility] Story % 6.7 % 0.0-5.0 [facility] ([facility], [facility]) Nucleated Red Blood Cell % 0.0 % 0-0 [facility] ([facility], [facility]) Immature Granulocyte % 0.3 % 0-3.0 [facility] ([facility], [facility]) Baso % 0.7 % 0.0-1.0 [facility] ([facility]) Lymph # 1.6 10 1.5-5.0 [facility] ([facility], [facility]) Neutrophils # 9.7 10 1.5-8.5 [facility] ([facility]) Story # 0.8 10 0.0-0.8 [facility] ([facility] Eos # 0.1 10 0.0-0.5 [facility] ([facility] Baso # 0.1 10 0.0-0.2 [facility] ([facility]) ID Date Data Source [id number] 01/16/2020 12:37:00 PM EST [facility] ([facility]) Name Value Range Interpretation Code Description Data Randa rce(s) Supporting Document(s) Surgical pathology study Laboratory test result [facility] ([facility]) <content>FINAL DIAGNOSIS</content>
<content></content>
<content>Esophagus, below Z line, biopsy:</content>
<content>Gastric cardia type mucosa with mild reactive gastropathy.</content>
<content>No evidence for intestinal metaplasia.</content>
<content>No evidence for H. pylori-like organisms on H & E stain.</content>
<content>01/17/2020 132</content>
<content></content>
<content>CLINICAL DIAGNOSIS</content>
<content></content>
<content>Refractory heartburn</content>
<content>01/17/2020719</content>
<content></content>
<content>GROSS DIAGNOSIS</content>
<content></content>
<content>Received in formalin labeled "biopsy below Z-line" consists of two</content>
<content>fragments of nassar tissue measuring 0.2 x 0.2 x 0.2 cm in aggregate. All</content>
<content>in one.</content>
<content>- SV</content>
<content>01/17/2020719</content>
<content></content>
<content>Signed BONNY DILLARD MD 01/17/2020 1554</content>
<content></content> ID Date Data Source [id number] 12/22/2019 12:06:00 PM EST [facility] [address] [place] [address] PHONE: [phone] FAX: [phone] Name .................. : MIKKI GHOSH Zehra Acct Number.................. : [id number] ROOM. ................. : TR05 Number ................... : [id number] Stay type ............. : E/R Discharge Date......... ... : 12/21/19 Admit Date ....... .. : 12/21/19 Admit Phys .................... : GABRIEL WILSON Date of ....... : 1990 Family Phys ................... : UNKNOWN Phone .................. : [phone] Age ................................ : 29 Film# .................. .:[id number] Sex ................................. : F Unsigned transcriptions are preliminary reports and do not represent a medical or legal document [facility] [id number] COMPLETE:12/21/19 10:44 KNB [id number] Reason(s): Nausea w Vomiting G ALLBLADDER ULTRASOUND, [...] By Maksim Soto MD , 12/22/19 12:06, KGJosué Transcribe Initials: CONSUELO, Transcribe Date: 12/21/19 13:59, Dictation Date: Copy for: EMERGENCY DEPT via modem Copy for: 710 MED REC DISCHARGED Page 1 of 1 Name Value Range Interpretation Code Description Data Randa rce(s) Supporting Document(s) ID Date Data Source [id number] 12/21/2019 09:10:[address] [facility] [address] [facility] Emergency Department [address] [place] [address] Phone #: ext- [phone] 12/21/2019 09:09 Patient: AUGIE KAYE Sex: F : 1990 Age: 29yWEIGHT:127.0 kg (S) HEIGHT:67 inches (S) BMI:43.9ALLERGIES: NoneCHIEF COMPLAINT: diarrhea, abdominal pain, nauseaDIAGNOSIS: Gastroesophageal reflux disease, GastroenteritisLAB ORDERSOrder Description Priority Entered Acknowledged InitialedCB w Diff STAT 09:34 12/21/2019 09:42 Jj Broussard ED, Jesse ER M.D.; [id number] STAT 09:34 12/21/2019 09:42 Ralph Turrin, Jj lithographic platemakerRomero M.D.; Esxm7Iirgun STAT 09:34 12/21/2019 09:42 Ralph Turrin, Jj lithographic platemaker, Romero AGUILAR M.D.; Monq5Qntlseppme (Clean STAT 09:34 12/21/2019 10:04 Nadege Peña) Jj Rios R.N. M.DTiffani;Beta-HCG, Qual STAT 09:34 12/21/2019 09:42 BurnhamSerum Turrin, Jj lithographic platemaker, Romero AGUILAR M.D.; [id number] STUDY ORDERSOrder Description Priority Entered Acknowledged InitialedUS Gall Bladder STAT 09:34 12/21/2019 10:04 Yessica Peña(Oxygen?(No)) Gabriel Jj R.N. M.DTiffani; Reason for Study: Nausea w Vomiting, RUQ PainMEDICATION/IV/DRIP/FLUID ORDERSOrder Description Priority Entered Acknowledged InitialedNS IV 1000 mL 09:35 12/21/2019 10:02 Yessica PeñaBolus: : Bolus 1000 Luis Antoniorin, Jj R.N.mL (X1) M.D.;Protonix IVPB 40 09:35 12/21/2019 Cancelled: Physician Order 09:58 Caseymg with Dextrose Gabriel Jj Julie R.N.100 ml spike bag M.D.; [address] [facility] Emergency Department [address] [place] [address] Phone #: ext- [phone] 12/21/2019 09:09 Patient: AUGIE KAYE Sex: F : 1990 Age: 29y(D5W)Zofran 4 mg IVP X 1 09:35 12/21/2019 10:02 Abraham Peñaose: 4 mg (NOW Turrin, Jj R.N.x1) Nazanin;Protonix IV Push 40 09:58 12/21/2019 10:03 Yessica Peñamg (in 10 mL NS, Yessica Peña R.N.; R.NTiffaniadminister over at Verbal order per;least 2 minutes, Livier Rios x1Mesfin BackGENERAL ORDERSOrder Description Priority Entered Acknowledged InitialedNPO 09:34 12/21/2019 09:49 Yessica Peña Riccardo R.N. M.D.;Saline Lock 09:34 12/21/2019 09:49 Yessica Peña Riccardo R.N. M.D.;[Electronically signed by Eleanor Mayfield R.N. (12/21/2019)][Electronically signed by Jj Rios M.D. (11:12/21/2019)][Electronically locked by Eleanor Mayfield R.N. (12/21/2019)] Name Value Range Interpretation Code Description Data Randa rce(s) Supporting Document(s) ID Date Data Source [id number] 12/21/2019 09:10:[address] [facility] [address] [facility] Emergency Department [address] [place] [address] Phone #: ext- [phone] 12/21/2019 09:09 Patient: AUGIE KAYE Sex: F : 1990 Age: 29yWeight: 127.0 [...] Dispense 30 tablet.Refills: 1. Substitution permitted.Pharmacy - [facility] [phone] ; [place] [address]. Phone: .Zofran 4 mg tablet Take 1 tablet four times a day as needed for 4 days -- Dispense 16 tablet. Refills: 0.Substitution permitted.[facility] [phone] ; [place] [address]. . -- Jj Rios M.D. Name Value Range Interpretation Code Description Data Randa rce(s) Supporting Document(s) ID Date Data Source [id number] 12/21/2019 09:10:[address] [facility] [address] [facility] Emergency Department [address] [place] [address] Phone #: ext- [phone] 12/21/2019 09:09 Patient: AUGIE KAYE Sex: F : 1990 Age: 29yWeight: 127.0 kgHeight/Length: 67 inBMI: 43.9ALLERGIES: None Date/Time Medication Administered Medication OrderedStart IV NS NS IV 1000 mL Bolus: : Bolus 557897:[id number] 12/21/2019 Dose: IV Fluids mL (X1)Yessica Peña R.N. Bolus: 1000 mL over 1 hour(s)---- Dispensed: [...] rce(s) Supporting Document(s) ID Date Data Source [id number] 12/21/2019 09:10:[address] [facility] [address] [facility] Emergency Department [address] [place] [address] Phone #: ext- [phone] 12/21/2019 09:09 Patient: AUGIE KAYE Sex: F : 1990 Age: 29yGastroesophageal reflux [...] days -- Dispense 30 tablet.Refills: 1. Substitution permitted.[facility] [phone] ; [place] [address]. .Zofran 4 mg tablet Take 1 tablet four times a day as needed for 4 days -- Dispense 16 tablet. Refills: 0.Substitution permitted.Pharmacy - [facility] [phone] ; [place] [address]. .Follow-up:Return to the emergency department as needed. Follow up with your healthcare provider in three dayseven if well. Call for an appointment. Reason for referral: evaluation and treatment. Summary of careprovided to patient via paper. Follow up with a irrigation flume layer in five days even if well. Call for anappointment. Reason for referral: evaluation, treatment and upper endoscopy as needed. Summary of careprovided to patient via paper. [address] [facility] Emergency Department [address] [place] [address] Phone #: ext- [phone] 12/21/2019 09:09 Patient: AUGIE KAYE Sex: F : 1990 Age: 29yUnderstanding of [...] include: Watery, loose stools [address] [facility] Emergency Department [address] [place] [address] Phone #: ext- [phone] 12/21/2019 09:09 Patient: AUGIE KAYE Sex: F : 1990 Age: 29y Stomach [...] with soap and water or use alcohol-based contour band saw operator vertical to prevent the spread of infection. Wash your hands after touching anyone who is sick. Wash your hands or use alcohol-based contour band saw operator vertical after using the toilet and before meals. [...] Keep uncooked meats away from cooked and nkist-fn-rey foods.MedicineYou may use acetaminophen or NSAID medicines [...] or severe abdominal pain. [address] [facility] Emergency Department [address] [place] [address] Phone #: ext- [phone] 12/21/2019 09:09 Patient: AUGIE KAYE Sex: F : 1990 Age: 29yDietFollow these [...] until you feel better. [address] [facility] Emergency Department [address] [place] [address] Phone #: ext- [phone] 12/21/2019 09:09 Patient: AUGIE KAYE Sex: F : 1990 Age: 29yFollow-up careFollow up with your healthcare provider, or as advised. Call your provider if you don't get better bciymk24 hours or if diarrhea lasts more than a week. Also follow up if you are unable to keep down liquidsand get dehydrated. If a stool (diarrhea) sample was taken, call as directed for the results.Call [phone] [phone] if any of these occur: Trouble breathing [...] directed by your healthcare provider Tunde souza [phone] [employer]. [address] [place] [address]. All rights reserved. This information is not intended as asubstitute for professional medical care. Always follow your healthcare professional's instructions. [address] [facility] Emergency Department [address] [place] [address] Phone #: ext- [phone] 12/21/2019 09:09 Patient: AUGIE KAYE Sex: F : 1990 Age: 29yGERD (Adult)The [...] continue treatment or get [address] [facility] Emergency Department [address] [place] [address] Phone #: tap- [phone] 12/21/2019 09:09 [id number] Sex: F : 1990 Age: 29ytreatment on [...] neck, shoulder, or arm [address] [facility] Emergency Department [address] [place] [address] Phone #: ext- [phone] 12/21/2019 09:09 Patient: AUGIE KAYE Sex: F : 1990 Age: 29y An wdmb-twa-hzipruh trial of medicine doesn't relieve your symptoms Weight loss that can't be explained Trouble or pain swallowing Frequent vomiting (can't keep down liquids) Blood in the stool or vomit (red or black in color) Feeling weak or dizzy Fever of 100.4F (38C) or higher, or as directed by your healthcare provider [phone] [employer]. [address] [place] [address]. All rights reserved. This information is not intended as asubstitute for professional medical care. Always follow your healthcare professional's instructions. You have been given the following additional information: Gastroenteritis, Viral (Adult) GERD (Adult)(Electronically signed by Jj Rios M.D. 12/21/2019 11:25) Name Value Range Interpretation Code Description Data Randa rce(s) Supporting Document(s) ID Date Data Source [id number] 12/21/2019 09:10:[address] [facility] 1 Clinical Report - Nurses [facility] Emergency Department [address] [place] [address] Phone #: ext- [phone] 12/21/2019 09:09 Patient: AUGIE KAYE Sex: F : 1990 Age: 29yTRIAGEArrived by private vehicle. Historian: patient. Accompanied by family. ( has a hx of GERD startedyesterday epigastric area and woke up with am with loose stools x3).Acuity: LEVEL 3.Chief Complaint: ABDOMINAL PAIN and DIARRHEA.Alert. 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 Sepsis Screen negative. No suspected or confirmed signs ofinfection present. --09:16 12/21/19 Yessica Peña R.N.09:11 12/21/19. BP: 161/84. MAP: 109. HR: 81. RR: 18. O2 saturation: 100%. Temp: 97.8 F. Pain levelnow: 10. --09:16 12/21/19 Yessica Peña R.N.Weight: 127 kg stated. Height/Length: 67 inches Per Patient. BMI: 43.9. --09:11 12/21/19 Yessica Peña R.N.MedicationsPepcid Oral (Tablet 20 mg), daily. --09:13 12/21/19 Yessica Peña R.N.AllergiesNone. --09:13 12/21/19 Yessica Peña R.N.PROBLEMS:Concussion.Bronchitis.Atypical Chest Pain.Heart Murmur.LINDSAY D.Contusion. --09:13 12/21/19 Yessica Peña R.N.ADDITIONAL SURGERIES:no known surgeries.HistoryPAST MEDICAL HX: Immunizations: up-to-date. Last normal menstrual period- 1 months ago. Sexualhistory - sexually active and engages in protected sex. 2 Clinical Report - Nurses [facility] Emergency Department [address] [place] [address] Phone #: ext- [phone] 12/21/2019 09:09 [facility]: [id number] Sex: F : 1990 Age: 29y SOCIAL [...] normal limits.SKIN: Skin is warm and dry. --09:17 12/21/19 Yessica Peña R.N.NURSING PROGRESS NOTESPatient gowned. Reassurance given. Two patient identifiers checked. Call light placed in reach. Siderails up x 2. Bed placed in lowest position. Brakes of bed on. Patient ready for evaluation- ED physiciannotified. --09:16 12/21/19 Yessica Peña R.N. 09:48 12/21/2019 Site #1 started via IV in the right antecubital space with an 20g angiocath, with aseptic 3 Clinical Report - Nurses 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 Verbalizesunderstanding. --10:12/21/19 Yessica Peña R.N.10:03 12/21/2019 PROTONIX (Pantoprazole Sodium) IVP 40 mg given over 2 minute(s) via site #1.Allergies verified and confirmed 5 rights. IV patency established. IV site checked: no pain, redness, orswelling. IV flushed thoroughly pre- and post- medication administration. IVP given by RN. Informationreviewed with patient including reason for taking this medication, signs of allergic reaction and precautions.Verbalizes understanding. 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 --10:24 12/21/19 Eleanor Mayfield R.N.Patient returned from sonogram by wheelchair with IV, mask and aircraft avionics technician. --10:37 12/21/19 Eleanor Mayfield R.N.11:16 12/21/2019 Site #1 rem lawrence upon discharge. Catheter intact. Bandaid applied. --11:18 12/21/19Eleanor Mayfield R.N.11:16 12/21/2019 IV Fluids IV NS via IV site #1 Discontinued: bag #1 discontinued upon discharge. Totalamount infused: 708 ml mL. IV patency established. IV site checked: no pain, redness, or swelling. IV 4 Clinical Report - Nurses [facility] Emergency Department [address] [place] [address] Phone #: qcs- [phone] 12/21/2019 09:09 Patient: AUGIE KAYE Sex: F : 1990 Age: 29y flushed thoroughly. --11:18 12/21/19 Eleanor Mayfield R.N.DISPOSITION / DISCHARGE Departure time: 11:18 12/21/2019. Condition at departure: improved. No learning barriers present. Discharge instructions provided and reviewed with the patient. Reviewed warnings. Reviewed medication(s) side effects, precautions, dosing and course information. Prescription(s) sent electronically to pharmacy (Protonix, Zofran). Reviewed referral to a primary care physician for followup. Patient verbalized understanding. Written instructions provided in [place]. The patient was discharged by the physician. She was discharged home and unaccompanied at time of discharge. She left ambulatory and via private vehicle. Patient driving. --11:19 12/21/19 Eleanor Mayfield R.N. 11:20 12/21/19. BP: 140/90. HR: 75. RR: 18. O2 saturation: 100%. Temp: 99.3 F. Pain level now 05/26. 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 Name Value Range Interpretation Code Description Data Randa rce(s) Supporting Document(s) ID Date Data Source [id number] 12/21/2019 09:10:[address] [facility] 1 Clinical Report - Physicians/Mid Levels [facility] Emergency Department [address] [place] [address] Phone #: ext- [phone] 12/21/2019 09:09 Patient: AUGIE KAYE Sex: F : 1990 Age: 29y Time [...] None. 2 Clinical Report - Physicians/Mid Levels [facility] Emergency Department [address] [place] [address] Phone #: ext- [phone] 12/21/2019 09:09 Patient: AUGIE KAYE Sex: F : 1990 Age: 29ySOCIAL HISTORYNever smoker. No alcohol use or drug use.ADDITIONAL NOTESThe nursing notes have been reviewed with agreement regarding the chief complaint, HPI, ROS, PMH andpatient medications and allergies.PHYSICAL EXAMVital Signs: 12/21/2019 09:11 BP: 161/84. MAP: 109. HR: 81. RR: 18. O2 saturation: 100%. Temp: 97.8F. Pain level now: 6/10. Have been reviewed. Oxygen saturation normal.Appearance: Alert. [...] 2.5) 3 Clinical Report - Physicians/Mid Levels [facility] Emergency Department [address] [place] [address] Phone #: ext- [phone] 12/21/2019 09:09 Patient: AUGIE KAYE Sex: F : 1990 Age: 29y %IG [...] Male GFR Interprentation 20-49 yrs >60 mL/min Tmilbe52-49 yrs >56 mL/min Normal 60-69 yrs >49 mL/min Normal 70-79yrs>42 mL/min Normal 80 and above >35 mL/min Normal Female GFRInterpretation 20-39 yrs >60 mL/min Normal 40-49 yrs >58 mL/minNormal 50-59 yrs >51 mL/min Normal 60-69 yrs >45 mL/min Mmyfzd33-73 yrs >39 mL/min Normal 80 and above [...] 1.030 4 Clinical Report - Physicians/Mid Levels [facility] Emergency Department [address] [place] [address] Phone #: ext- [phone] 12/21/2019 09:09 Patient: AUGIE KAYE Sex: F : 1990 Age: 29y pH [...] NEGATIVE (NORMAL: NEGAT { KIT LOT # [id number] ){ KIT EXP DATE 11.21.20 ){ PROCEDURAL CONTROL VALID ) US Gall Bladder: (AME: 12/21/2019 09:34) ( MsgRcvd 12/21/2019 10:44) In Progress US GALLBLADDER Reason(s): Nausea w Vomiting TRANSPORTATION: IV? O2? Oxygen?(No) Room: ED.PROGRESS AND PRO CEDURESCourse of Care: 11:07 12/21/19. workup all in and reviewed and nml, as well as nml GB US; pt doingmuch better, abdomen softer; pt has probable viral GE on GERD and needs refill of PPI; will d/c home winstructions, pt understands and agrees; pt has GI MD in [place] and will f/u w him for upper [...] gastroenteritis. 5 Clinical Report - Physicians/Mid Levels [facility] Emergency Department [address] [place] [address] Phone #: ext- [phone] 12/21/2019 09:09 ------ Patient: AUGIE KAYE Sex: F : 1990 Age: 29yINSTRUCTIONS Drink [...] Dispense 30 tablet. Refills: 1. Substitution permitted. [facility] [phone] ; [place] [address]. . Zofran 4 mg tablet Take 1 tablet four times a day as needed for 4 days -- Dispense 16 tablet. Refills: 0. Substitution permitted. [facility] [phone] ; [place] [address]. FaxNumber: . Follow-up: Return to the emergency department as needed. Follow up with your healthcare provider in three days even if well. Call for an appointment. Reason for referral: evaluation and treatment. Summary of care provided to patient via paper. Follow up with a irrigation flume layer in five days even if well. Call [...] 12/21/2019 11:25) 6Clinical Report - Physicians/Mid Levels [facility] Emergency Department [address] [place] [address] Phone #: ext- [phone] 12/21/2019 09:09 Patient: [facility]UGIE [facility]AYE [id number] Sex: F : 1990 Age: 29y Name Value Range Interpretation Code Description Data Randa rce(s) Supporting Document(s) ID Date Data Source [id number] 12/21/2019 10:59:[address] [facility] Name Value Range Interpretation Code Description Data Randa rce(s) Supporting Document(s) HCG SERUM QUAL NEGATIVE NORMAL: NEGATIVE [facility] HCG SERUM QL REENTER NEGATIVE NORMAL: NEGATIVE [facility] { KIT LOT # [id number] ){ KIT EXP DATE 11.21.20 ){ PROCEDURAL CONTROL VALID ) ID Date Data Source [id number] 12/21/2019 10:37:[address] [facility] Name Value Range Interpretation Code Description Data [facility] rce(s) Supporting Document(s) COMPREHENSIVE METABOLIC PANEL [facility] COMPREHENSIVE METABOLIC PANEL Sodium [Moles/volume] in Serum or Plasma 135 mEq/L 134 - 153 [facility] Potassium [Moles/volume] in Serum or Plasma 4.2 mEq/L 3.6 - 5.0 [facility] Chloride [Moles/volume] in Serum or Plasma 102 mEq/L 98 - 107 [facility] Carbon dioxide, total [Moles/volume] in Serum or Plasma 28 MEQ/L 22 - 30 [facility] Glucose [Mass/volume] in Serum or Plasma 89 MG/DL 65 - 110 [facility] BUN 6 MG/DL 7 - 21 [facility] Creatinine [Mass/volume] in Serum or Plasma 0.6 MG/DL 0.7 - 1.[address] [facility] BUN/CREAT 10 8 - 27 [facility] al Protein [Mass/volume] in Serum or Plasma 7.3 G/DL 6.3 - 8.2 [facility] Albumin [Mass/volume] in Serum or Plasma 4.2 G/DL 3.9 - 5.0 [facility] Globulin [Mass/volume] in Serum by calculation 3.1 GM/DL 2.4 - 3.2 [facility] A/G RATIO 1.4 0.8 - 2.0 [facility] al Calcium [Mass/volume] in Serum or Plasma 9.4 MG/DL 8.4 - 10.2 [facility] Bilirubin.total [Mass/volume] in Serum or Plasma 0.8 MG/DL 0.2 - 1.3 [facility] Alkaline phosphatase [Enzymatic activity/volume] in Serum or Plasma 80 U/L 38 - 126 [facility] Aspartate aminotransferase [Enzymatic activity/volume] in Serum or Plasma 18 U/L 5 - 40 [facility] Alanine aminotransferase [Enzymatic activity/volume] in Seru m or Plasma 18 U/L 7 - 56 [facility] Anion gap 3 in Serum or Plasma 5.0 mmol/L 8.0 - 16.[address] [facility] AGE 29 yrs [facility] al NON-AA GFR >60 mL/min [facility] ital AFR AMER GFR >60 mL/min [facility] spital Male GFR In terprentation [...] >32 mL/min Normal ID Date Data Source [id number] 12/21/2019 10:36:[address] [facility] Name Value Range Interpretation Code Description Data Randa rce(s) Supporting Document(s) CBC W/AUTOMATED DIFF [facility] COMPLETE BLOOD COUNT Leukocytes [#/volume] in Blood by Automated count 10.6 10^3/uL 4.2 - 11.0 [facility] Erythrocytes [#/volume] in Blood by Automated count 4.34 10^6/uL 4. 20 - 5.40 [facility] Hemoglobin [Mass/volume] in Blood 12.7 g/dL 12.0 - 16.0 [facility] Hematocrit [Volume Fraction] of Blood by Automated count 37.8 % 3 7.0 - 47.0 [facility] Erythrocyte mean corpuscular volume [Entitic volume] by Auto mated count 87.1 fL 81.0 - 101 [facility] Erythrocyte mean corpuscular hemoglobin [Entitic mass] by Automated count 29.3 pg 27.0 - 34.0 [facility] Erythrocyte mean corpuscular hemoglobin concentration [Mass/volume] by Automated count 33.6 g/dL 31.0 - 36.0 [facility] Erythrocyte distribution width [Ratio] by Automated count 14.0 % 11.5 - 14.5 [facility] Platelets [#/volume] in Blood by Automated count 292 10^3/uL 150 - [address] [facility] Platelet mean volume [Entitic volume] in Blood by Automated count 10.6 fL 7.4 - 10.[address] [facility] Neutrophils/100 leukocytes in Blood by Automated count 82.3 % 37. 0 - 80.[address] [facility] Lymphocytes/100 leukocytes in Blood by Manual count 10.3 % 25.0 - 40.[address] [facility] Monocytes/100 leukocytes in Blood by Automated count 6.1 % 3.0 - 8.0 [facility] Eosinophils/100 leukocytes in Blood by Automated count 0.3 % 0.0 - 7.0 [facility] Basophils/100 leukocytes in Blood by Automated count 0.7 % 0.0 - 2.5 [facility] %IG 0.3 % 0.0 - 0.0 H [facility] %NRBC 0.0 % 0.0 - 0.0 [facility] al Neutrophils [#/volume] in Blood by Automated count 8.70 10^3/uL 2.00 - 6.[address] [facility] Lymphocytes [#/volume] in Blood by Automated count 1.09 10^3/uL 0.60 - 3.40 [facility] Monocytes [#/volume] in Blood by Automated count 0.64 10^3/uL 0.00 - 0.90 [facility] Eosinophils [#/volume] in Blood by Automated count 0.03 10^3/uL 0.00 - 0.70 [facility] Basophils [#/volume] in Blood by Automated count 0.07 10^3/uL 0.00 - 0.20 [facility] #IG 0.03 10^3/uL 0.00 - 0.10 [facility] ospital #NRBC 0.00 10^3/uL 0.00 - 0.00 [facility] ospital MANUAL DIFF NOT INDICATED [facility] RBC MORPH NOT INDICATED [facility]ital ID Date Data Source [id number] 12/21/2019 10:36:[address] [facility] Name Value Range Interpretation Code Description Data Randa rce(s) Supporting Document(s) Lipase [Enzymatic activity/volume] in Serum or Plasma 16 U/L 13 - 60 [facility] ID Date Data Source [id number] 12/21/2019 10:17:00 AM [facility] Name Value Range Interpretation Code Description Data Randa rce(s) Supporting Document(s) [facility]IS [facility] SOURCE R [facility] COLOR yellow NORMAL: Yellow [facility] ospital CLARITY Clear NORMAL: Clear [facility] spital Specific gravity of Urine by Test strip 1.015 1.001 - 1.030 [facility] pH 8 5 - 9 [facility] al Glucose [Mass/volume] in Urine by Test strip NORM NORMAL: Negat [facility] Bilirubin.total [Presence] in Urine by Test strip NEG NORMAL: Negative [facility] Ketones [Presence] in Urine by Test strip NEG NORMAL: Negative [facility] Protein [Mass/volume] in Urine by Test strip NEG NORMAL: Negat [facility] Nitrite [Presence] in Urine by Test strip NEG NORMAL: Negative [facility] BLOOD NEG NORMAL: Negative [facility] Leukocyte esterase [Presence] in Urine by Test strip NEG MAYRA L: Negative [facility] Urobilinogen [Mass/volume] in Urine by Test strip NOR less meena n 1.0 mg/dL [facility] MICROSCOPIC Not Indicate [facility] ospital ID Date Data Source [id number] 11/14/2019 10:15:00 AM EDT [facility] ([facility]) Name Value Range Interpretation Code Description Data Randa rce(s) Supporting Document(s) White Blood Count 11.0 4.0-10.0 [facility] ([facility]) Red Blood Count 4.05 4.00-5.40 [facility] ([facility]) Platelets 281 172-450 [facility] ([facility]) Hematocrit 35.3 [facility] ([facility]) Hemoglobin 11.7 [facility] ([facility]) ID Date Data Source [id number] 11/14/2019 10:15:00 AM EDT [facility] ([facility]) Name Value Range Interpretation Code Description Data Randa rce(s) Supporting Document(s) Thyroxine (T4) free [Mass/volume] in Serum or Plasma 3.1 [facility] ([facility]) Triiodothyronine resin uptake (T3RU) in Serum or Plasma 37 [facility] ([facility]) Thyroxine (T4) [Mass/volume] in Serum or Plasma 8.4 [facility] ([facility]) Thyroid Stimulating Hormone 1.770 ME DENT ([facility]) ID Date Data Source [id number] 11/14/2019 10:15:00 AM EDT [facility] Name Value Range Interpretation Code Description Data Randa rce(s) Supporting Document(s) Troponin Laboratory test result [facility] ([facility]) ID Date Data Source [id number] 11/14/2019 10:15:00 AM EDT [facility] ([facility]) Name Value Range Interpretation Code Description Data Randa rce(s) Supporting Document(s) CPK-MB Laboratory test result [facility] ([facility]) Creatine kinase [Enzymatic activity/volume] in Serum or Plasma 85 [facility] ([facility]) ID Date Data Source [id number] 11/14/2019 10:15:00 AM EDT [facility] ([facility]) Name Value Range Interpretation Code Description Data Randa rce(s) Supporting Document(s) Glucose 108 70-100 [facility] ([facility]) Blood Urea Nitrogen 9 7-18 [facility] ([facility]) Creatinine 0.80 0.6-1.0 [facility] ([facility]) Sodium 137 136-145 [facility] ([facility] Potassium 4.0 3.5-5.1 [facility] ([facility]) Calcium 9.2 8.2-9.6 [facility] ([facility]) Chloride 107 98-107 [facility] ([facility]) Carbon Dioxide 27 21-32 [facility] ([facility]) Glomerular filtration rate/1.73 sq M.pre dicted [Volume Rate/Area] in Serum or Plasma by Creatinine-based formula (MDRD) Laboratory test result [facility] ([facility]) Procedure Social History Code Duration Value Status Description Data Source(s ) Smoking 11/18/2020 03:02:00 PM EDT Denies Ever Smoked complete d Denies Ever Smoked [facility] Smoking 10/08/2020 12:00:00 AM EDT Patient has never smoked co mpleted Patient has never smoked [facility] ([facility]) Smoking 09/28/2020 12:00:00 AM EDT Patient has never smoked co mpleted Patient has never smoked [facility] ([facility]) Smoking 02/27/2020 12:00:00 AM EST Never Smoked Cigarettes com pleted Never Smoked Cigarettes [facility] ([facility]) Vital Signs ID Date Data Source [id number] Name Value Range Interpretation Code Description Data Source(s) Systolic blood pressure 132 mm[Hg] Normal (applies t o non-numeric results) 132 mm[Hg] [facility] Diastolic blood pressure 73 mm[Hg] Normal (applies to non-numeric results) 73 mm[Hg] [facility] Body mass index (BMI) [Ratio] 40.7 kg/m2 No rmal (applies to non-numeric results) 40.7 kg/m2 [facility] Heart rate 81 min Normal (applies to non-numeric resul ts) 81 min [facility] Deprecated Oxygen saturation in Capillary blood by Oximetry 100 % Normal (applies to non-numeric results) 100 % [facility] Respiratory rate 14 min Normal (applies to non-numeric results) 14 min [facility] Body height 66 [in_i] 66 [in_i] [facility] ([facility]) 5'6" Body mass index (BMI) [Ratio] 43.6 kg/m2 43.6 k g/m2 [facility] ([facility], [facility]) Systolic blood pressure 145 mm[Hg] 145 mm[Hg] M EDENT ([facility], [facility]) Diastolic blood pressure 90 mm[Hg] 90 mm[Hg] [facility] ([place] [facility], [facility]) Heart rate 84 /min 84 /min [facility] ([facility], [facility]) Respiratory rate 18 /min 18 /min [facility] ( [facility], [facility]) Oxygen saturation in Arterial blood by Pulse oximetry 98 % 98 % [facility] ([place] [facility], [facility]) Body temperature 97.8 [degF] 97.8 [degF] [facility] ([place] [facility], [facility]) Body weight 270.00 [lb_av] 270.00 [lb_av] MEDEN T ([place] [facility], [facility]) Body weight 274.00 [lb_av] 274.00 [lb_av] [facility] T ([facility]) Body height 67 [in_i] 67 [in_i] [facility] ([facility]) 5'7" Body mass index (BMI) [Ratio] 42.9 kg/m2 42.9 k g/m2 [facility] ([facility]) Systolic blood pressure--sitting 124 mm[Hg] 124 mm[Hg] [facility] ([facility]) Ra, large cuff Diastolic blood pressure--sitting 76 mm[Hg] 76 mm[Hg] [facility] ([facility]) Ra, large cuff Respiratory rate 17 /min 17 /min [facility] ( [place] [facility], [facility]) Heart rate 92 /min 92 /min [facility] ([facility], [facility]) Oxygen saturation in Arterial blood by Pulse oximetry 99 % 99 % [facility] ([place] [facility], [facility]) Body temperature 98.4 [degF] 98.4 [degF] [facility] ([place] [facility], [facility]) Body height 67 [in_i] 67 [in_i] [facility] ([facility], [facility]) 5'7" Body mass index (BMI) [Ratio] 42.3 kg/m2 42.3 k g/m2 [facility] ([place] [facility], [facility]) Body weight 270.00 [lb_av] 270.00 [lb_av] MEDEN T ([facility], [facility]) Systolic blood pressure 140 mm[Hg] 140 mm[Hg] M EDENT ([facility], [facility]) Diastolic blood pressure 89 mm[Hg] 89 mm[Hg] [facility]) Body temperature 98.0 [degF] 98.0 [degF] [facility]) Respiratory rate 18 /min 18 /min [facility] ( [facility], [facility]) Oxygen saturation in Arterial blood by Pulse oximetry 98 % 98 % [facility]) Body weight 270.00 [lb_av] 270.00 [lb_av] MEDEN T ([facility], [facility]) Body height 67 [in_i] 67 [in_i] [facility] ([facility], [facility]) 5'7" Body mass index (BMI) [Ratio] 42.3 kg/m2 42.3 k g/m2 [facility] ([facility], [facility]) Systolic blood pressure 132 mm[Hg] 132 mm[Hg] [facility]) Diastolic blood pressure 88 mm[Hg] 88 mm[Hg] [facility] ([facility], [facility]) Heart rate 88 /min 88 /min [facility], [facility]) Body weight 285.00 [lb_av] 285.00 [lb_av] MEDEN T ([facility]) Body height 67 [in_i] 67 [in_i] [facility] ([facility]) 5'7" Body mass index (BMI) [Ratio] 44.6 kg/m2 44.6 k g/m2 [facility] ([facility]) Heart rate 78 /min 78 /min [facility] ([facility]) Systolic blood pressure--sitting 134 mm[Hg] 134 mm[Hg] [facility] ([facility]) [place], large cuff/Ra Diastolic blood pressure--sitting 93 mm[Hg] 93 mm[Hg] [facility] ([facility]) [place], large cuff/Ra Diastolic blood pressure 81 mm[Hg] 81 mm[Hg] [facility] ([facility]) Body temperature 97.2 [degF] 97.2 [degF] [facility] ([facility]) Body weight 288.00 [lb_av] 288.00 [lb_av] MEDEN T ([facility]) Body height 67 [in_i] 67 [in_i] [facility] 5'7" Systolic blood pressure 124 mm[Hg] 124 mm[Hg] M EDENT ([facility]) Heart rate 71 /min 71 /min [facility]) Body mass index (BMI) [Ratio] 45.1 kg/m2 45.1 k g/m2 [facility] ([facility]) Body weight 130.637 kg 130.637 kg [facility] ([facility]) Heart rate 101 /min 101 /min [facility] ([facility]) Diastolic blood pressure 94 mm[Hg] 94 mm[Hg] [facility] ([facility], [facility]) Body temperature 98.8 [degF] 98.8 [degF] MEDENT ([facility], [facility]) Respiratory rate 16 /min 16 /min MEDENT ( [facility], [facility]) Body weight 270.00 [lb_av] 270.00 [lb_av] MEDEN T ([facility], [facility]) Body mass index (BMI) [Ratio] 42.3 kg/m2 42.3 k g/m2 MEDENT ([facility], [facility]) Systolic blood pressure 148 mm[Hg] 148 mm[Hg] M EDENT ([facility], [facility]) Body height 67 [in_i] 67 [in_i] MEDENT ([facility], [facility]) 5'7" Oxygen saturation in Arterial blood by Pulse oximetry 99 % 99 % MEDENT ([facility], [facility]) Body height 67 [in_i] 67 [in_i] MEDENT ([facility], ) 5'7" [place] body weight 135 [lb_av] 135 [lb_av] MEDEN T ([facility], ) ID Date Data Source [id number] 12/14/2020 06:06:57 PM EDT [facility] Name Value Range Interpretation Code Description Data Source(s) WEIGHT RECORDED 259.26 lb 259.26 lb [facility] Body height Measured 65.98 in 65.98 in [facility] WEIGHT RECORDED 260 lb 260 lb [facility] Body height Measured 66 in 66 in [facility] ID Date Data Source [id number] 09/18/2020 10:09:52 AM EDT [facility] Name Value Range Interpretation Code Description Data Source(s) WEIGHT RECORDED 270 lb 270 lb [facility] Body height Measured 66 in 66 in [facility]
--- OUTSIDE RECORDS SUMMARY | 2020-12-31 00:11 | CCD ---
Author Author [facility] Organization [facility] Address Unknown Phone Unavailable Care Team Providers Care Maintainer Plant Name Role Phone Carla TOBIAS MD Unavailable [...] Eric Camarena MD Unavailable Unavail able El-Dokla, Erci Camarena MD Unavailable Unavail able El-Dokla, Eric Camarena MD Unavailable Unavail able El-Dokla, Eric Camarena MD Unavailable Unavail able El-Dokla, Eric Camarena MD Unavailable Unavail able El-Dokla, Eric Camarena MD Unavailable Unavail able El-Dokla, Eric Camarena MD Unavailable Unavail able El-Dokla, Eric Camarena MD Unavailable Unavail able El-Dokla, Eric Cmaarena MD Unavailable Unavail able El-Dokla, Eric Cmaarena MD Unavailable Unavail able El-Dokla, Eric Camarena [...] A Avel MD Unavailable Unavailable Kristin-Malak, A Vael MD Unavailable Unavailable Kristin-Malak, A Avel MD [...] A Avel MD Unavailable Unavailable Molina, Marnie YARDMASTER Unavailable Unavailable Molina, Marnie YARDMASTER Unavailable Unavailable Molina, Marnie YARDMASTER Unavailable Unavailable Molina, Marnie YARDMASTER Unavailable Unavailable Molina, Marnie YARDMASTER Unavailable Unavailable Molina, Marnie YARDMASTER Unavailable Unavailable Molina, Marnie YARDMASTER Unavailable Unavailable Molina, Marnie YARDMASTER Unavailable Unavailable Molina, Marnie YARDMASTER Unavailable Unavailable Molina, Marnie YARDMASTER Unavailable Unavailable Molina, Marnie YARDMASTER Unavailable Unavailable Molina, Marnie YARDMASTER Unavailable Unavailable Molina, Marnie YARDMASTER Unavailable Unavailable DIOGO BRADFORD MD Unavailable Unavailable [...] Unavailable Unavailable Ulices JIMENEZ MD Unavailable Unavailable Maggie RodriguezC Unavailable Unavailable Maggie Rodriguez PA-C Unavailable Unavailable JenniferMaggie clinton PA-C Unavailable Unavailable [facility], [facility] Unavailable Unavailable Hudson, Raja Unavailable Unavailable [...] Unavailable Unavailable Cameron Walters MD Unavailable Unavailable AnascoYash guthrie MD Unavailable Unavailable AnascoYash guthrie MD Unavailable Unavailable AnascoYash guthrie MD Unavailable Unavailable AnascoYash guthrie MD Unavailable Unavailable AnascoYash guthrie MD Unavailable Unavailable RING, K SOURAV [...] Unavailable RING, K SOURAV PA Unavailable Unavailable AnascoYash guthrie MD Unavailable Unavailable AnascoYash MD Unavailable Unavailable AnascoYash MD Unavailable Unavailable AnascoYash MD Unavailable Unavailable Anasco, Ivayla MD Unavailable Unavailable Maggie Baltazar MD Unavailable Unavailable Maggie Baltazar MD Unavailable Unavailable Maggie Baltazar MD Unavailable Unavailable Maggie Baltazar MD Unavailable Unavailable Maggie Baltazar MD Unavailable Unavailable Maggie Baltazar MD Unavailable Unavailable Maggie Baltazar MD Unavailable Unavailable Maggie Baltazar MD Unavailable Unavailable Maggie Baltazar MD Unavailable Unavailable Maggie Baltazar MD Unavailable Unavailable Maggie Baltazar MD Unavailable Unavailable Maggie Baltazar MD Unavailable Unavailable Maggie Baltazar MD Unavailable Unavailable Maggie Baltazar MD Unavailable Unavailable Maggie Baltazar MD Unavailable Unavailable Maggie Baltazar MD Unavailable Unavailable Maggie Baltazar MD Unavailable Unavailable Maggie Baltazar MD Unavailable Unavailable Maggie Baltazar MD Unavailable Unavailable Maggie Baltazar MD Unavailable Unavailable Maggie Baltazar MD Unavailable Unavailable Maggie Baltazar MD Unavailable Unavailable Maggie Baltazar MD Unavailable Unavailable Maggie Baltazar MD Unavailable Unavailable Maggie Baltazar MD Unavailable Unavailable Maggie Baltazar MD Unavailable Unavailable Maggie Baltazar MD Unavailable Unavailable Maggie Baltazar MD Unavailable Unavailable Maggie Baltazar MD Unavailable Unavailable Maggie Baltazar MD Unavailable Unavailable Maggie Baltazar MD Unavailable Unavailable Maggie Baltazar MD Unavailable Unavailable Maggie Baltazar MD Unavailable Unavailable Maggie Baltazar MD Unavailable Unavailable Maggie Baltazar MD Unavailable Unavailable Maggie Baltazar MD Unavailable Unavailable Maggie Baltazar MD Unavailable Unavailable Maggie Baltazar MD Unavailable Unavailable Maggie Baltazar MD Unavailable Unavailable Maggie Baltazar MD Unavailable Unavailable Maggie Baltazar MD Unavailable Unavailable Maggie Baltazar MD Unavailable Unavailable Maggie Baltazar MD Unavailable Unavailable Maggie Baltazar MD Unavailable Unavailable aMggie Baltazar MD Unavailable Unavailable Maggie Baltazar MD Unavailable Unavailable Maggie Baltazar MD Unavailable Unavailable Maggie Baltazar MD Unavailable Unavailable Maggie Baltazar MD Unavailable Unavailable Maggie Baltazar MD Unavailable Unavailable Maggie Baltazar MD Unavailable Unavailable Maggie Baltazar MD Unavailable Unavailable Maggie Baltazar MD Unavailable Unavailable Maggie Baltazar MD Unavailable Unavailable Maggie Baltazar MD Unavailable Unavailable Maggie Baltazar MD Unavailable Unavailable Maggie Baltazar MD Unavailable Unavailable Maggie Baltazar MD Unavailable Unavailable Maggie Baltazar MD Unavailable Unavailable JEET GRIDER Unavailable [...] Unavailable Feola, T Linda PA Unavailable Unavailable CLAUDETTE FELDER MD Unavailable Unavailable CLAUDETTE FELDER MD Unavailable Unavailable CLAUDETTE FELDER MD Unavailable Unavailable CLAUDETTE FELDER MD Unavailable Unavailable CLAUDETTE FELDER MD Unavailable Unavailable CLAUDETTE FELDER MD Unavailable Unavailable CLAUDETTE FELDER MD Unavailable Unavailable CLAUDETTE FELDER MD Unavailable Unavailable CLAUDETTE FELDER MD Unavailable Unavailable BRADFORD, CLAUDETTE MD Unavailable Unavailable BRADFORD, CLAUDTETE MD Unavailable Unavailable BRADFORD, CLAUDETTE MD Unavailable [...] Unavailable Campanaro, Mare Katherine PA Unavailable Unavailable Valentina GRIDER DO Unavailable Unavailable PHYSICIAN, ER Unavailable Unavailable Re-disclosure [...] is protected by Article 27-F of the [facility] Public Health law. If you continue you may have access to information: Regarding HIV / AIDS; Provided by facilities licensed or operated by the [facility] Office of Mental Health; or Provided by the [facility] Office for People With Developmental Disabilities. If such information is present, then the following [facility] mandated warning applies: This information has [...] law may result in a fine or care home sentence or both. A general authorization for the release of medical or other information is NOT sufficient authorization for further disc losure. Allergies and Adverse Reactions Type Description Substance Reaction Status Data Source(s ) Propensity to adverse reactions NO KNOWN ALLERGIES NO KNOWN ALLERGIES [facility] Encounters Encounter Providers Location Date Indications Data Source(s ) Outpatient Attender: Candelario Fosterer: PROVIDER ERNESTO ZHANG [place] 01/14/2021 12:00:00 AM [facility] Outpatient Attender: Joni Treviño 01/09/2021 12:00:00 AM [facility] Outpatient 12/24/2020 12:00:00 AM [facility] Outpatient Attender: Orly Myers MD 1 02/22/2020 12:34:05 PM EDT - 12/22/2020 01:36:05 PM EDT [facility] ([facility]) Outpatient 12/17/2020 12:00:00 AM EDT [facility] Outpatient Attender: Boy Sorensen MDReferrer: Kumar Neal MD 12/12/2020 12:00:00 AM EDT - 12/12/2020 12:38:59 PM EDT [facility] Outpatient Attender: CLAUDETTE FELDER MD Main office - [facility] n 11/30/2020 10:15:00 AM EDT [facility] ([facility]) Emergency Attender: Ascencion Sales MDConsultant: [facility]IN[facility] 11/26/2020 11:10:00 AM EDT - 11/26/2020 12:14:00 PM EDT [facility] Patient discharged. Outpatient Attender: CLAUDETTE FELDER MD Main office - [facility] 11/22/2020 10:00:00 AM EDT [facility] ([facility] Emergency Attender: MARIANA SÁNCHEZ MDAtt cesario: ILSA FERNANDEZ MDAttender: DEFAULT EDReferrer: DIOGO BRADFORD MD 07A-ERMADULT 11/19/2020 12:00:00 AM EDT - 11/19/2020 12:00:00 AM EDT unable to walk, blood in stool, abdominal pain [facility] unable to walk, blood in stool, abdomina l pain Patient discharged. Outpatient Attender: Boy Sorensen MDReferrer: Kumar Neal MD 11/19/2020 12:00:00 AM EDT [facility] Emergency Attender: ER PHYSICIAN 11/18/2020 12:13:04 PM E DT Lab [facility] Emergency Attender: RICHARD JIMENEZ MDAttender: ER PHYSICIAN 11/18/2020 10:15:00 AM EDT - 11/18/2020 04:11:00 PM EDT MEDS INEFFECTIVE DIZZY [facility] MEDS INEFFECTIVE DIZZY Patient discharged. Emergency Attender: ER PHYSICIAN 11/18/2020 10:15:00 AM E DT [facility] Outpatient Attender: Avel Neal MD [facility] 10/24/2020 11:20:00 AM EDT [facility] Outpatient Attender: Anna Greene PA-C [facility] 10/16/2020 02:50:00 AM EDT [facility] ([facility]) Outpatient Attender: Zora Rodriguez PA-C [facility] 10/15/2020 02:11:00 AM EDT [facility] ([facility]) Outpatient Attender: Cameron Walters MD [facility] 10/14/2020 02:03:00 AM EDT [facility] Outpatient Attender: Cameron Walters MD [facility] 10/13/2020 02:06:00 AM EDT [facility] ([facility]) Outpatient Attender: Avel Neal MD [facility] 10/12/2020 08:35:00 AM EDT [facility] ([facility]) Outpatient Attender: Yash Taylor MDAt tender: JEET GRIDER DOAdmitter: JEET GRIDER DO 10/12/2020 06:07:58 AM EDT Lab [facility] Outpatient Attender: Yash Taylor MDAttender: Tong Blood MD 10/11/2020 10:57:00 PM EDT [facility] Outpatient Attender: Yash Taylor MDAt tender: Tong Blood MDAttender: JEET GRIDERAttender: ER PHYSICIANAdmitter: JEET GRIDER 10/11/2020 08:14:00 PM EDT - 10/17/2020 01:35:00 PM EDT LE EXTREMITY WEAKNESS, UNABLE TO AMBULATE [facility] LE EXTREMITY WEAKNESS, UNABLE TO AMBULAT E Patient discharged. Emergency Attender: GAURANG TENA MDConsultant: CLIN IC ALEE 10/11/2020 10:30:00 AM EDT - 10/11/2020 06:30:00 PM EDT [facility] Patient discharged. Outpatient Attender: Linda PATINO 021 08:56:32 AM EDT - 10/11/2020 09:51:31 AM EDT [facility] ([facility] ) Outpatient Attender: SOURAV Gaona 10/08/2020 03:10:00 PM EDT [facility] ([facility]) Outpatient Attender: CANDY PATINO Main Office 09/28/2020 0 1:30:00 PM EDT [facility] ([facility]) Emergency Attender: JJ RIOSConsultant: CLINIC CLAUDIA CROW 09/26/2020 02:15:00 PM EDT - 09/26/2020 07:09:00 PM EDT [facility] Patient discharged. Outpatient Attender: LUKASZ CAN RPA 09/23 09:32:22 AM EDT - 09/23/2020 11:21:42 AM EDT [facility] ([facility] ) Emergency Referrer: KORINA TOBIAS MD HVCP-ERMTNA 09/17/2020 05:54:00 PM EDT - 09/17/2020 10:28:[address] [facility] Patient discharged. Emergency Attender: Ascencion Sales MDConsultant: [facility] 09/15/2020 05:46:00 PM EDT - 09/15/2020 07:44:00 PM EDT [facility] Patient discharged. Outpatient Attender: Linda PATINO 021 08:25:50 AM EDT - 08/30/2020 09:14:37 AM EDT [facility] ([facility] ) Outpatient Attender: CLAUDETTE FELDER MD Main office - [facility] 08/13/2020 07:30:00 AM EDT [facility] ([facility]) Outpatient Attender: CLAUDETTE FELDER MD Main office - [facility] 05/31/2020 12:30:00 PM EDT [facility] ([facility]) Outpatient Attender: Linda PATINO 021 11:15:21 AM EST - 04/21/2020 12:19:03 PM EST [facility] ([facility] ) Outpatient Attender: Katherine anaya 03/15/2020 03:40:00 PM EST [facility] ([facility]) Outpatient Attender: Marnie motta 01/08/2020 07:50:00 AM EST [facility] ([facility]) Emergency Attender: JJ RIOS 2019 09:10:00 AM EST - 12/21/2019 11:18:[address] [facility] Patient discharged. Outpatient Attender: JEREMY SAPP MD Main Office 12/14/2019 09:45:00 AM EDT [facility] ([facility]) Outpatient Attender: Satish Nielsen MD Main Office 12/13/2019 10:45:00 AM EDT [facility] ([facility]) Outpatient Attender: Marnie motta 12/07/2019 08:35:00 AM EDT [facility] ([facility]) Immunizations Vaccine Date Status Description Data Source(s) COVID-19 VACC, MRNA(PFIZER)/PF 08/17/2020 12:00:00 AM EDT completed [facility] COVID-19 VACCINE Pfizer 08/16/2020 12:00:00 AM EDT completed [facility] Vaccine Series Complete: NOThis Data was Submitted to [facility] Via [employer] Medications Medication Brand Name Start Date Product [...] EDT ORAL active [facility] ([facility] No Active Medications 01/08/2020 12:00:00 AM EST completed [facility] ([facility]) Aluminum Hydroxide 160 MG / magnesium carbonate [...] EDT ORAL active [facility] ([facility] Omeprazole 40 MG Delayed Release Oral Capsule Omeprazole 12/13/2019 12:00:00 AM EDT ORAL active [facility] ([facility]) Insurance Providers Payer name Policy type / Coverage type Policy ID Covered republican ID Covered republican's relationship to becerra Policy Becerra Plan Information / [id number] Spouse [id number] [employer] emp [id number] Employee [id number] U [id number] Self [id number] HEA [id number] S [id number] EAST HUMANA [id number] [id number] HUMANA EAST REG O [id number] S [id number] EAST HUMANA [id number] HU2 [id number] EAST HUMANA - O/P [id number] 19 [id number] Problems, Conditions, and Diagnoses Code Display Name Description Problem Type Effective Dates Data Source(s) Z6841 Body mass index [BMI]40.0-44.9, adult Aaron dy mass index [BMI]40.0-44.9, adult Diagnosis 11/26/2020 11:10:00 AM EDT [facility] E6601 Morbid (severe) obesity due to excess ca lories Morbid (severe) obesity due to excess calories Diagnosis 11/26/2020 11:10:00 AM EDT [facility] I10 Essential (primary) hypertension Essential (primary) h ypertension Diagnosis 11/26/2020 11:10:00 AM EDT [facility] R0789 Other chest pain Other chest pain Diagnosis 11/26/2020 11 :10:00 AM EDT [facility] unable to walk, blood in stool, abdomina l pain unable to walk, blood in stool, abdominal pain Diagnosis 11/18/2020 05:57:00 PM EDT [facility] U51055 CONTACT WITH AND SUSPECTED EXPOSURE TO C OVID-19 CONTACT WITH AND SUSPECTED EXPOSURE TO COVID-19 Diagnosis 10/11/2020 10:30:00 AM EDT [facility] R079 Chest pain, unspecified Chest pain, unspecified Diagno sis 10/11/2020 10:30:00 AM EDT [facility] R9431 Abnormal electrocardiogram [ECG] [EKG] A bnormal electrocardiogram [ECG] [EKG] Diagnosis 10/11/2020 10:30:00 AM EDT [facility] R531 Weakness Weakness Diagnosis 10/11/2020 10:30:00 AM ED T [facility] I499 Cardiac arrhythmia, unspecified Cardiac arrhythmia, un specified Diagnosis 09/26/2020 02:15:00 PM EDT [facility] R600 Localized edema Localized edema Diagnosis 09/26/2020 02:1 5:00 PM EDT [facility] R42 Dizziness and giddiness Dizziness and giddiness Diagno sis 09/26/2020 02:15:00 PM EDT [facility] Flank Pain Flank Pain Diagnosis 09/17/2020 05:54:00 PM ED T [facility] Y[address] or not applicable Unspecified place or not applicable Diagnosis 09/15/2020 05:46:00 PM EDT [facility] V00XEXH Exposure to other specified factors, ini tial encounter Exposure to other specified factors, initial encounter Diagnosis 09/15/2020 05:46:00 PM EDT [facility] R1011 Right upper quadrant pain Right upper quadrant pain Di agnosis 09/15/2020 05:46:00 PM EDT [facility] E669 Obesity, unspecified Obesity, unspecified Diagnosis 09/15/2020 05:46:00 PM EDT [facility] [id number] Strain of muscle and tendon of front wal l of thorax, initial encounter Strain of muscle and tendon of front wall of thorax, initial encounter Diagnosis 09/15/2020 05:46:00 PM EDT [facility] U17764L Strain of muscle and tendon of back wall of thorax, initial encounter Strain of muscle and tendon of back wall of thorax, initial encounter Diagnosis 09/15/2020 05:46:00 PM EDT [facility] M546 Pain in thoracic spine Pain in thoracic spine Diagnosi s 09/15/2020 05:46:00 PM EDT [facility] K219 Gastro-esophageal reflux disease without esophagitis Gastro-esophageal reflux disease without esophagitis Diagnosis 12/21/2019 09:10:00 AM ES T [facility] A0811 Acute gastroenteropathy due to Oden a gent Acute gastroenteropathy due to Oden agent Diagnosis 12/21/2019 09:10:[address] [facility] R197 Diarrhea, unspecified Diarrhea, unspecified Diagnosis 12/21/2019 09:10:[address] [facility] R94.31 Electrocardiogram abnormal Electrocardiogram abnormal Problem 12/14/2019 12:00:00 AM EDT [facility] ([facility]) Z71.3 Dietary management surveillance Dietary management shaka veillance Problem 12/14/2019 12:00:00 AM EDT [facility] ([facility]) E66.01 Morbid obesity Morbid obesity Problem 12/14/2019 12:00: 00 AM EDT [facility] ([facility]) R01.1 Heart murmur Heart murmur Problem 12/14/2019 12:00:00 A M EDT [facility] ([facility]) R07.2 Precordial pain Precordial pain Problem 12/14/2019 12:0 0:00 AM EDT [facility] ([facility]) [id number] Gastroesophageal reflux disease Gastroesophageal reflux disease Problem 12/13/2019 12:00:00 AM EDT [facility] Surgeries/Procedures Procedure Description Date Indications Data Source(s) OFFICE OUTPATIENT VISIT 25 MINUTES 11/30/2020 12:00:00 AM EDT [facility] ([facility]) Magnetic Resonance Angiogtaphy Head W/O Contrast Material(S) 11/23/2020 12:00:00 AM EDT [facility] ([facility]) Magnetic Resonance Angiogtaphy Head W/O Contrast Material(S) 11/23/2020 12:00:00 AM EDT [facility] Magnetic Resonance Angiography Neck W/O Contrast Materials 11/23/2020 12:00:00 AM EDT [facility] ([facility] Magnetic Resonance Angiography Neck W/O Contrast Materials 11/23/2020 12:00:00 AM EDT [facility] ([facility] OFFICE OUTPATIENT VISIT 25 MINUTES 11/22/2020 12:00:00 AM EDT [facility] ([facility] ) XTRNL ECG < 48 HR RECORDING 10/30/2020 12:00:00 AM EDT [facility] ([facility]) XTRNL ECG CONTINUOUS RHYTHM PHYS REVIEW&INTERPJ 2020 12:00:00 AM EDT [facility] ([facility]) OFFICE OUTPATIENT NEW 45 MINUTES 10/24/2020 12:00:00 A M EDT [facility] ([facility]) OFFICE OUTPATIENT VISIT 25 MINUTES 10/24/2020 12:00:00 AM EDT [facility] ([facility]) OFFICE OUTPATIENT VISIT 15 MINUTES 10/16/2020 12:00:00 AM EDT [facility] ([facility]) OFFICE OUTPATIENT VISIT 15 MINUTES 10/15/2020 12:00:00 AM EDT [facility] ([facility]) Electrocardiogram Interpretation & Report Only 021 12:00:00 AM EDT [facility] ([facility]) OFFICE OUTPATIENT VISIT 15 MINUTES 10/14/2020 12:00:00 AM EDT [facility] ([facility]) OFFICE OUTPATIENT VISIT 10 MINUTES 10/13/2020 12:00:00 AM EDT [facility] ([facility]) OFFICE OUTPATIENT NEW 45 MINUTES 10/12/2020 12:00:00 A M EDT [facility] ([facility]) OFFICE OUTPATIENT VISIT 25 MINUTES 10/08/2020 12:00:00 AM EDT [facility] ([facility]) ECG ROUTINE ECG W/LEAST 12 LDS W/I&R 09/28/2020 12:00: 00 AM EDT [facility] ([facility]) OFFICE OUTPATIENT VISIT 25 MINUTES 09/28/2020 12:00:00 AM EDT [facility] ([facility]) OFFICE OUTPATIENT VISIT 25 MINUTES 08/13/2020 12:00:00 AM EDT [facility] ([facility] MRI BRAIN BRAIN STEM W/O CONTRAST MATERIAL 07/20/2020 12:00:00 AM EDT [facility] ([facility] MRI BRAIN BRAIN STEM W/O CONTRAST MATERIAL 07/20/2020 12:00:00 AM EDT [facility] ([facility] ELECTROENCEPHALOGRAM W/REC AWAKE&ASLEEP 06/12/2020 12: 00:00 AM EDT [facility] ([facility] ELECTROENCEPHALOGRAM W/REC AWAKE&ASLEEP 06/12/2020 12: 00:00 AM EDT [facility] ([facility] ) TSTG ANS FUNCJ CARDIOVAGAL INNERVAJ PARASYMP 12:00:00 AM EDT [facility] ([facility] TESTING AUTONOMIC NERVOUS SYSTEM FUNCTION 06/01/2020 1 2:00:00 AM EDT [facility] ([facility] ) OFFICE CONSULTATION NEW/ESTAB PATIENT 60 MIN 12:00:00 AM EDT [facility] ([facility] ) CV STRS TST XERS&/OR RX CONT ECG PHYS SI&R 05/01/2020 12:00:00 AM EDT [facility] ([facility]) ECHO TTHRC R-T 2D W/WOM-MODE COMPL SPEC&COLR DOP 02/26 12:00:00 AM EST [facility] ([facility]) UPPER NDSC BIOPSY SINGLE/MULTIPLE 01/16/2020 12:00:00 AM EST [facility] ([facility]) ECG ROUTINE ECG W/LEAST 12 LDS W/I&R 12/14/2019 12:00: 00 AM EDT [facility] ([facility]) Results ID Date Data Source [id number] 12/19/2020 12:00:00 AM EDT [facility] Name Value Range Interpretation Code Description Data Randa rce(s) Supporting Document(s) SARS-CoV2 Rapid Antigen Negative [facility] This [facility] and reported by [facility]. ID Date Data Source [id number] 11/27/2020 07:21:00 AM EDT [facility] [address] [place] [address] RESPIRATORY CARE REPORT ==== ---------NAME------- NUMBER SEX AGE ADMIT DISC. XRAY# F/C DENISE GHOSH N [id number] F 30 11/26/20 11/26/[id number] SB4 E/R DATE OF : 1990 M/R# [id number] PH#: [phone] [place]-[birth year] LOCATION: EMERGENCY DEPT EKG [id number] COMP LETE:11/26/20 15:07 [place] [id number] PHYSICIAN: DONATO Sherman Name Value Range Interpretation Code Description Data Randa rce(s) Supporting Document(s) ID Date Data Source [id number] 11/27/2020 05:37:47 AM EDT [facility] Name Value Range Interpretation Code Description Data Randa rce(s) Supporting Document(s) ED Provider Note [facility] VCWVQw1yAlTPUvTf99/YSUgoEWZco6EmYPbiGAa8AAhfLGOfD7GpYTJ8lL7bNUD9XOaTSyEpNgQnGQIl lbm TsEtqQBvJvVZHeZzzKBmKaIUblZpndnZAyYD6DoPX2NFEtQ86jKTKiCEZjH8BaPYE0AaT+Qy8JLVFcpL GyRU9BOecR3J3Cy7ySPw7P4r3EIPUQjbvTIjWCImyXGGhoZvhJ0jCsYoHSbQpwRyRFedG/Dobsgkf5jf BAVYkPZxbppPH5H7/dAyCOU/35zTkKPCGEU/zz+dcg Hk2a2wnLV74jSs2+C9m7tO7tWiyBaiN1Rb0Jz1c9xK7yKf4JMg7UxTzwX2+q0Apqf6XvmZy55g+/annette/ LhGX8wr5hQhiaU3iCFCZJPUm1lJOTiK2ImGD1C72TXeQOGcfFHa5dhj7ERjKyJbXsHVzakmNldDlMyP5 vlrbgB/vlJZYgsqRFThpMUnvRFud2n++KuHTifNhsJ Yjmd/PqWz4Gl2A9GiT6u3IRBiLa3L+VoaICpeBvtzeaywnJPOcV9c3vUaCmyRN0fGtsT3uF+DkseJ6We YDacuwA+5DpxCuJwEhauZB1uSbPrVVTZ21IgQQDP+gmCaayvzBQATrU8oI6lNqtTQ+XLHamwu8wKffXu 7WkpcmwwraLWVjQKtOuTzuMbkKT99Atj+TMc2Yo9u5 jKoIjeExIwY0nSbaSurTWk3WYI3c2DDNsGtplEtsXcgCETLS+BOw9tZrdmoJTLH0XK4yO2v89caSSLz0 rop9xAnL2ladcEGoT5XEtyp/U+6ixm5MQkHHPaV5UXzgbS9kRRmGHaMWN2X1eonfJuO79FqiKMkk/KWM dfp666qbhv3xoglUpeepFsfbpqWTzlswhVeN1s6AtC [file] iMuUGw3tRQU+BBGw0QRkR3wufpFUvHeZupL+K+f+Animal Care Service Worker [file] [id number] ID Date Data Source [id number] 11/26/2020 11:10:00 AM EDT [facility] 1 OrderSheet [facility] Emergency Department [address] [place] [address] Phone #: ext- [phone] 11/26/2020 11:09 Patient: AUGIE KAYE Zehra Sex: F : 1990 Age: 30yWEIGHT:124.7 kg [...] rce(s) Supporting Document(s) ID Date Data Source [id number] 11/26/2020 11:10:00 AM EDT [facility] 1 Medication Reconciliation Report [facility] Emergency Department [address] [place] [address] Phone #: ext- [phone] 11/26/2020 11:09 Patient: [...] rce(s) Supporting Document(s) ID Date Data Source [id number] 11/26/2020 11:10:00 AM EDT [facility] 1 Medication Administration Record [facility] Emergency Department [address] [place] [address] Phone #: ext- [phone] 11/26/2020 11:09 Patient: AUGIE KAYE Sex: F : 1990 Age: 30yWeight: 124.7 kgHeight/Length: 66 inBMI: 44.4ALLERGIES: No Known Drug Allergy Date/Time Medication Administered Medication OrderedGiven ACETAMINOPHEN [PO] Acetaminophen PO 1000 mg11:42 11/26/2020 Dose: 1000 mg Tablets PO (NOW x1)Eder Sykes R.N. Name Value Range Interpretation Code Description Data Randa rce(s) Supporting Document(s) ID Date Data Source [id number] 11/26/2020 11:10:00 AM EDT [facility] 1 General Instructions [facility] Emergency Department [address] [place] [address] Phone #: ext- [phone] 11/26/2020 11:09 Patient: AUGIE KAYE Sex: F [...] CLINIC Respective Team [place], , , [id number] [address], , [place], [address] Follow up in two days if not better. Call for an appointment. Reason for referral: evaluation. ADDITIONAL INFORMATIONChest Wall Pain: Costochondritis 2 General Instructions [facility] Emergency Department [address] [place], [place] [id number] Phone #: [phone]- [phone] 11/26/2020 11:09 Patient: AUGIE KAYE Sex: F [...] that worsens the pain. 3 General Instructions [facility] Emergency Department [address] [place] [address] Phone #: ext- [phone] 11/26/2020 11:09 Patient: [...] or as directed by your healthcare provider [phone] [employer] [address] [place] [address], [place] [address]. All rights reserved. This information is not intended as asubstitute for professional medical care. Always follow your healthcare professional's instructions. You have been given the following additional information: Chest Wall Pain, Cost ochondritis(Electronically signed by [employer] 11/26/2020 15:59) Name Value Range Interpretation Code Description Data Randa rce(s) Supporting Document(s) ID Date Data Source [id number] 11/26/2020 11:10:00 AM EDT [facility] 1 Clinical Report - Nurses [facility] Emergency Department [address] [place] [address] Phone #: ext- [phone] 11/26/2020 11:09 Patient: AUGIE KAYE Sex: F : 1990 Age: 30yTRIAGEArrived by private vehicle. Historian: patient. Accompanied by family. ( presents with with c/opassing out about 1/2 hr ago, states she stood up and passed out, also c/o chest pain for past month).Triage time: 11:11/26/2020. Acuity: LEVEL 3.Chief Complaint: SINGLE SYNCOPAL EPISODE.Alert. No acute distress.This occurred today. Witnessed: Event was witnessed.Treatment TELEPHONE COLLECTOR:None.SEPSIS SCREEN: SIRS SCREEN NEGATIVE. SEPSIS SCREEN NEGATIVE. No suspected or confirmedsigns of infection present. --11:33 11/26/20 Suellen Poe RN11:20 11/26/20. BP: 134/61. MAP: 85. HR: 77. RR: 16. O2 saturation: 100%. Temp: 98.3 F (oral).--11:33 11/26/20 Suellen Poe RN12: 14 11/26/20. Pain level now 6/10. --12:14 11/26/20 Rose Marie Laws R.N.Weight: 124.7 kg measured. Height/Length: 66 inches Per Patient. BMI: 44.4. --11:32 11/26/20 Suellen Poe RN.MedicationsPepcid Oral. --11:23 11/26/20 Suellen Poe RN Protonix Oral. --11:11/26/20 Suellen Poe RN.AllergiesNo Known Drug Allergy. --11:22 11/26/20 Suellen Poe RN.PROBLEMS:Concussion.Contusion.Dizziness.Atypical Chest Pain.Bronchitis.Gastroenteritis.Myofascial Strain.Pedal Edema. 2 Clinical Report - Nurses [facility] Emergency Department [address] [place] [address] Phone #: ext- [phone] 11/26/2020 11:09 [id number] Sex: F : 1990 Age: 30y Weakness. [...] Poe RN 3 Clinical Report - Nurses [facility] Emergency Department [address] [place] [address] Phone #: ext- [phone] 11/26/2020 11:09 Patient: AUGIE KAYE Sex: F : 1990 Age: 30y 11:33 [...] RR: 11. O2 saturation: 98%. --11:35 11/26/20 [facility] 11:42 11/26/2020 Acetaminophen PO Tablets 1000 mg given. Allergies verified and confirmed 5 rights. Information reviewed with patient including reason for taking this medication, signs of allergic reaction and precautions. Verbalizes understanding. --11:43 11/26/20 Eder Sykes, RMary 12:03 11/26/20. BP: 133/94. HR: 76. RR: 13. O2 saturation: 99%. --12:03 11/26/20 Suellen Poe RN.DISPOSITION / DISCHARGE Condition at departure: stable. No learning barriers present. Discharge instructions provided and reviewed with the patient. Patient verbalized understanding. Written instructions provided in Argentine. The patient was discharged by the physician. [...] rce(s) Supporting Document(s) ID Date Data Source [id number] 11/26/2020 11:10:00 AM EDT [facility] 1 Clinical Report - Physicians/Mid Levels [facility] Emergency Department [address] [place] [address] Phone #: ext- [phone] 11/26/2020 11:09 Patient: [...] Allergy.SOCIAL HISTORY 2 Clinical Report - Physicians/Mid [facility] Emergency Department [address] [place] [address] Phone #: ext- [phone] 11/26/2020 11:09 Patient: [...] MRI and scans she had done at [facility]. EKG also shows no pericarditis. Old medical records ordered. Patient has had multiple ED visits. 3 Clinical Report - Physicians/Mid Levels [facility] Emergency Department [address] [place] [address] Phone #: ext- [phone] 11/26/2020 11:09 Patient: AUGIE KAYE Sex: F [...] discharge instructions verbalized by patient. Follow-up with: [facility] Respective Team Rust Lori [place], , , [address] [facility] [address]iko, , [place], [address] Follow up in two days if not better. Call for an appointment. Reason for referral: evaluation.(Electronically signed by [employer] 11/26/2020 1 5:59) Name Value Range Interpretation Code Description Data Randa rce(s) Supporting Document(s) ID Date Data Source [id number] 11/22/2020 12:22:45 PM EDT [facility] Name Value Range Interpretation Code Description Data Randa rce(s) Supporting Document(s) ED Provider Note [facility] SPFXFe0dOwAWIoWh25/TNJatZANxc8SiREciHYw6WKacGBCpE7QlTGV1uL4xDYZ2EQkSLaFhBfZuGKR2 lbm [file] fpaB0WsxZ/central supply tech/OoKRN72xA0SZn7UbweS1g9Q9iR68U/0R5O8gesIf7m0C+fjle6YXW/VzeFYGf7YyII [file] VPRg0K ID Date Data Source [id number] 11/20/2020 01:16:26 AM EDT [facility] Name Value Range Interpretation Code Description Data Randa rce(s) Supporting Document(s) Consultation [facility] QVNGPn6nVdANJnHk05/ZLIotXAUif0QoRRtlQOc7CLepVWPsS4NdCVM9oU6zYOR6KWyGQpDsPiFwAVL8 lbm [file] ICAgICAgICAgICAgICAgICAgICAgICAgICAgICAgICAgICAgICAgICAgICAgICAgICAgICAgICAgICAg ICAgICAgICAgICAgDQogICAgICAgICAgICAgICAgIC AgICAgICAgICAgICAgICAgICAgICAgICAgICAgICAgICAgICAgICAgICAgICAgICAgICAgICAgICAgIC AgICAgICAgICAgICAgICAgICAgICAgDQogICAgICAgICAgICAgICAgICAgICAgICAgICAgICAgICAgIC AgICAgICAgICAgICAgICAgICAgICAgICAgICAgICAg ICAgICAgICAgICAgICAgICAgICAgICAgICAgICAgICAgDQogICAgICAgICAgICAgICAgICAgICAgICAg ICAgICAgICAgICAgICAgICAgICAgICAgICAgICAgICAgICAgICAgICAgICAgICAgICAgICAgICAgICAg ICAgICAgICAgICAgICAgDQogICAgICAgICAgICAgIC AgICAgICAgICAgICAgICAgICAgICAgICAgICAgICAgICAgICAgICAgICAgICAgICAgICAgICAgICAgIC AgICAgICAgICAgICAgICAgICAgICAgICAgDQogICAgICAgICAgICAgICAgICAgICAgICAgICAgICAgIC AgICAgICAgICAgICAgICAgICAgICAgICAgICAgICAg ICAgICAgICAgICAgICAgICAgICAgICAgICAgICAgICAgICAgDQogICAgICAgICAgICAgICAgICAgICAg ICAgICAgICAgICAgICAgICAgICAgICAgICAgICAgICAgICAgICAgICAgICAgICAgICAgICAgICAgICAg ICAgICAgICAgICAgICAgICAgDQogICAgICAgICAgIC AgICAgICAgICAgICAgICAgICAgICAgICAgICAgICAgICAgICAgICAgICAgICAgICAgICAgICAgICAgIC AgICAgICAgICAgICAgICAgICAgICAgICAgICAgDQogICAgICAgICAgICAgICAgICAgICAgICAgICAgIC AgICAgICAgICAgICAgICAgICAgICAgICAgICAgICAg ICAgICAgICAgICAgICAgICAgICAgICAgICAgICAgICAgICAgICAgDQogICAgICAgICAgICAgICAgICAg ICAgICAgICAgICAgICAgICAgICAgICAgICAgICAgICAgICAgICAgICAgICAgICAgICAgICAgICAgICAg BMXbGTLdTWDmRKAsQRIxCFAwNCWbZJw6R0ydPOGzPO MmUP6mDKr5Eg5+LLwRFqMiHIQ5qbAxbG0ANC9sl4XsIQnqACFmf4TbASz4DT0UIXXlIRqfXG0SWJygkz 9JHWPxSWIvgNMZz5cjAfTcJHQ3NPTqUgepHD8BZHJwH0zmepIoEDXlITWZSDsfHZCPHPtxMXFIPHYgQF PxHcNmJkNcZFQpUSVhMOITZU8QQfTuQ3MkkS65NIOJ Cj4+UZajawYiXfkNDkOwILDer6SuDRv0LR4WMPOrOpjlh3UuYpSuSVANUYvxTT8RJGH9LDVnBTJtCm4L ZFZsG176rfIwUY7HPn6DBuQbGX6xqy0LNaBiTOWlNoeECky3AZkgNP0UaUOkPToBq83jfZv1ooByzHJK OOdvNYkryXyegbhnCLGRAyLqeFQnZC93MeWbEgFkQX L0HwUxKB1lLHugWU4UGYP3WNveQQPpCYStJ1lGIjIjUXWlQWEkuGpjMM4FIpByV4UdwdVwhASjHjBqAL INCj4+INtuarYrOihPMxU4IZLoz8EwYBl4AF1PTJTmDXlpNL0OQZGqcF8jOHmvWB8TZlQtLEJpPGCBXg SbH02gpIBvAOx5G8XzRhXwVNLzMovpKXWxIRxcPeUd ZXMgWyBdDQogID4+ID4+IBvyGF0BGCyobgTrZCErKj8KMYIjUEGzCY7sOXOyEFWqT3W7hVoaYXDEAfYr X7dxtuefMZ9wKAVzN533mOpzccGwRXWiBIDhVt4BEAMwPHH0ZPXxsRFcDzAxUVEVURtyPQ9UxLYcSCU5 oZ3jHKrmZRGuJCLfH0dQWpBkqRkcDG73uKluugYlyC BdDQo+Ab8WZQ5ti1HpHAp0rlRzABpvNZF0EYslWIZfDPRjDQGqOCB3UWI9GPIYPhKiYZXjSTAsESmoLP QkWEFlhi8TQCBnELAeSxTuBbLcYCFqXNZcODiqRTRkROR2KjK6KTItVYToGT6UGlHeBBUtOISpDAdiTH ByXTKovl2XDBQtNDBkLZC1ATYaWRRzVBHjVHudAVGk LHA5ZIL8JSQkOAKqZJ6MUjRhOYYbPNhvPFxdKGUwNRLujq9FUUBvTBRlAgWcAUHuADJzAFKrFMzfESSf XKUqXXPwVPDfWRKtXV3RNiKnTPEpRKZ0QmBkUQWiSKUikm4PHBDwTHAmWUDvPzUeEWCkPDNvRWnjMOCo FBO1RqE2OYIpTZGcMR1AFlNcNZEmGLy0XHJeDJSdOH Wqgi5BCXHnJFDxIOU4BHXcZKKsZNKvVVwvDBZbAZO2DSZ5FLZhMUBkWL7UPdVfMBTgGAe9KePnTOXwKT Unpu4IVKFmUPNnBEWiZPZlMUQeLCHgYVkcKKPcHEOvVPHiUIXrNALoXD8KVgUgHSSgQnTqDOVmELXuEI Pavq8YGZClFPGwTTy7HfVjSQEsXZTgWDsoECLpFCKf MDn3VNIyRNUeMX9KOyJlBUSmAuLtCvDwRPQcMYIwzr9ENNFsUHVvGjChSuEzRYLdSVQdWGosNDGjGYUr ONPjXBEhZXAiTE2HVmZbVRDuKfV8EYZyTLTfKBPkbg7DQMMcKRMzWTU4PBRtORLmHWWoXCbgVHZvYTU3 JMS8JBEgAJOcRQ7WJqOtVQOjGzH0YGOaBLEzUFFggs 1OOAPoCAKmTDi6CUNwPMDsLQDcBLlfHAGeJWY5LEYmHIWwJGIfIM0HWdVjJMMpQeR6FKzhVTAoZDPuar 7UAKJjFKZwRxd6SESyXXWeADQdHTegQUIgOCE9IZY8ACFkMQCcJC7JUvNnQEXeZtwsZBAjCXVmJMIrts 3ScGUfuEzoam3NGVdWKj7XlQvoFYR7VUytCh3gbMXk FNXuBCMKCl1FvgZmOSIuYZUHFYtgTBBnTYC5ABX2JgYmBrfsOnAgNpGhHFIhZjIdVKDcFtizJiBbSpH1 LtX1Edp7CXOhB3JiEnXeUDB3XkWgUJTyHeXkEHFpXNF+DS7wVBq+Qa5Hl1NdkaJ4hkJkWGulZST7RA3F SOVIY4NTHr== ID Date Data Source [id number] 11/19/2020 01:07:11 PM EDT [facility] CT HEAD WITHOUT CONTRAST [id number] RESU LTInterpreted by:Alan Dale MDHISTORY: Weakness.TECHNIQUE: Noncontrast [...] rce(s) Supporting Document(s) ID Date Data Source [id number] 11/19/2020 09:15:08 AM EDT [facility] XR CHEST FRONTAL AND LATERAL [id number] RESULTInterpreted by:Troy Jules MDINDICATION: Chest pain.TECHNIQUE: XR CHEST FRONTAL AND LATERAL [id number], 11/19/2020 8:04 AM.COMPARISON: None available.FINDINGS: The chest wall is normal in appearance.Cardiomediastinal contours are normal.There is no evidence of pleural disease.The lungs are clear.IMPRESSION: No acute radiographic evidence of cardiopulmonary disease.This document has been electronically signed by GERARDO Jules on 11/19/2020 9:13 AM Name Value Range Interpretation Code Description Data Randa rce(s) Supporting Document(s) ID Date Data Source [id number] 11/19/2020 08:44:52 AM [facility] Name Value Range Interpretation Code Description Data Randa rce(s) Supporting Document(s) [facility] ITFOQf5fXmIPIuHut5JyStBxQEIsQI9xtty2D6M0zIJrY6LsiWVeo2ipH8WaE4LoLAKdYFPMLA6MvIXv jb2 [file] G19FTM5ZwwGYNXiGqokfOMRIeiBRmCc9CDIMExuAZB9RcXFZNPmYRFaEQpWWSNVc5EmuDVJJFPUPGRRH 89hZJ8MUGAjsjFRRpBXXKiDUsM2DtuTQKIgh9sCYa0 7vw29tazBhNasRJKcOCOuiyYirKaIAjTzXwXqgFIeN0/9Qz48FJnuzPV308oj7/hSPaTfqjR2oXP94f7 08VXydZG9EdxeXzfgJ13fZ10bdEyY8+hc7KOPkdOad/v9udnssB88XV7zsXcdblII125Fx48i1biGmcP YApoB9dGozPTfH2Eq9+/Ryy2u9bLWKKFZi0I5uGVFY A56VIIC5LbdGisRxYXjJcUw7yxDwSR0kF+1r5/G6Y95mGdOXC9IJpGriibpGkSJU8TwrIfbJcahjRPIJ 3VdtppxBIN7LwUohDcP2kgukPDRdXOXtQQIHDKcUETiBTLR6SJR1006dnbDO9OyzzJUkmQlBUx0BbHLN M84qwC175pzNSw7cSdxPaejRuDH4lyuB2xWLYyhkOq CWIZkM8QI+7EFjuJAT03J3+Jg0Fo3h95ubjmuET8lBfkgllLA6S/fpPOK6L6Zl8JghDyuWZJGF71RDyR yusqq1NJAltwQSBRpcsuzIVHgKYfQWZRFA8GbGinsztI0unuTSSuymcuRR8Iv5u1M0zDQ3ej+35Hf+YT R/ESs0oI2ZzszKXzU+Hx/qVhLphUC4K/BvLEkT xxBTLw/AmeGLnoWPueadRY+12V66s6edjdXRidkqaG+20A0Kq7me7qY7vrNVj+wTeR0mbAUfuh69sur2 y0IhLDJltsE5y8sxrwFG1tewgr882HBWmFp672QEU4o/s6JNa+djHl4Ko268NokZDKxJOGqClg0z5zAD 8707o2W+17BkWsfb+/aZR0GZSf2w4rsBby12UUemc8 KwwigwjemWLte/MlG20ZX/IvEamGF5eCF1nlOmr2GY6ykIl79Ula2HVKx2LgvebcOuNYC0lX242dMOJH O0Ucu8jAX7krvPUpsmR1ywDhpVajTrQByunlNCRgrolnYT5rgWchi5wczuIHclUNHMecLtyhdpKQeuW3 Pa2AcpzDseSaxO94Qp/qvTELmwdH3DmiOV3+MQVoI0 457fSvZXOdTv3Q+mDQB/w+1JqczWaYZl2BmnLJVZkTLUTlYSTBhfDyvdI3vlZy5XvneCm9Ya60S+edjf IPvykh51kmoLVEZxRlKKpsjXq79lXQW5/soIGFlCDzvCGmVNd4eoZR/M6AvF350qEW+TPaecz5vpTaGX uCsy+971dVEyMmDYhabSaHrQ7b+sDpA/Francisco J+wLkz6Y HBMncutGnmizE+bF6OZAzrUMKoGlO347NTb6cgO8CMzoCGcVwhbK+BQtfZndYn1WEovGak1S+1BYxn4I 42AxDlYnMliHfWGxL/N0JNU3yfM7MrcZrmZPVlRiKIDjFG5GcUWSQj5q3o9uw70udwjXRX87x7YD3HOy LoT0hMyFGQ7qYvf686CbRzD5rCjASU5x+mBjTPSGMd WmCxGUhNx87T1+cM47e+hUHnJZjmF7gSpRoNEOZXNTlMP+fkaAqrnRzEfy3VK2dYMC1AHR3BO+4Jx3dk BmgZHqvIDROFVvHPfJxNgLIoD0y8Jn1Svu7Dd9ck32F+uuciQLuxch53fgU9WZC053ppjTU3+MpZCK75 Da5z08R4+9OrAdvESu3kJmf22riso3uP5Gdl7bSUTK RBaRRWQ/ky0Hj1y2U69BY+HSAl70btcB3fa9g2m13/mOEWvf8+0j1r4/gakcGudXNCWoCOV88Ew02mpy cjC/LJxro4VaW5r478EyRCtnpC5DmjKM/OsWsAb5R0e944n5o+PuJOsGN0le5b5pjSin4Df1xhf96CK8 dZrZba2nXp9U3WUutNuBBy3Njb0oSLk5YDyFH7krkB yxSoIrxdgftNOj2qeBGcBbqZ9jiAJFZIApxkdyFEckk0MUbM17p6vhc+eOT7xjeXPeU1nX4H27YZ+Macario Dj6aprXJkmIViD+sBymBETHyiSQ18l2uf2tOKY7a5DFmYExpU6Jtem+L4loPBS/sDz+8SZC+E/yF3UHj mUcGJ+i9xJWO4TW4OSwa/4TRtssZ7lIne+2CfdFGvf P/9CsPN5+/FB/GF2lTpJ6aydXjrFQ/T44UMvpUuS+01eBpC8DeblGh061ZQossoh72b6kpqVZw/M6Nv5 fSLWvt+E9g5sJNN7J/CFuXdf+P7AF/nBMiLOOo4+y4nA9oSVlSCtFmaFd85Fk9eEZ+PliUfBxvcHvvH9 nX4foyWIR/tihAQqZ3QgdcrWA7S2Qj+bdVBl2JeoJt iLCMfEvYngu/RMUGLBEOBZuYZznLUbCnvRXpLZOBHQM4LxK7aezwKnybegQP136gScNPmVB+QmqqmS0a VQeroTxvMdfSQIMNGXWqmjkSLAARmO2OuFrSc2orwtpB7NiwkhBFLGxCI1iDie97E9CZ1/kS/Wvt/Tki fuQKRRgDbFd+vj0h9TTHi8q9L05u0/hMXuuG4bsjVc xBCcdTC/8Na+445ULGfmx1q+n1+La9Ch16+H3/il+W9CN5KkqwJsh6GqoaxsbuqDR2gBfeh38tbuGA2P o0O7yXd4wX/Q49A/UT5x/kP5CkE91/vtg42bBxxmE0QWL01ap9pDGythf6rwGnK/IC6sV5Z1cd6tM+UT 5QvlC+Fc7jJ6h75Cisug9vL139oqIn/67t7dpH96XT yj3FCO+4apphhl3jymBXAPn06p0ELcy++ahRQdv06lWyJ32G647s8ak5xgh7qHImzcjgdeIgB4EAUL+z vsXefwd/3Yt04R1f7s31G8F0Zn2FSr3C2CoNrbxnrxk5f+wV5D/mR2L2O8psf20z3Jufmnt45Q+2v+4s T8xY/T7arKdgmcF/Fs6L+2n37H/ONLg2ApG/auOD72 bo3jT/kF9qEeTrX0wlE2Z+d/7N0tyj/06ulpQ5p8sf//0FqJL5nnZCb5L/On1GdYp3+iaev5p6c5MQgO ze12VpZFotImlzQllw2Y/eO1+1Gv64diUYau3D/fpj8/z3N/1zCWM1aFj6+MuF834EoOYt9ukQ2aXAy0 cjyP5bZeNY85KainrMif9pgPdbq6OW0rmV7M1ykUgu wmqK6H51b+Ec+0sJo4QL9g2t8FuzChcqMnehAlW9gyNH+68Wl6t4LKR+zdeP7u+cd8Dc0I2J/+u9/z6K whT/1nCfm3/A7XZeS29ajvm3+exNL4D80Y0eAWdbF8IDLpMU5X7G8eh//eUL4/zo85DgIinY//jYVc7f OgWS6TFbhZ/z2p11mVifGVq/K3ll3y5fhhbTqR4J+9 tosFw9qfh6We7FecV04/L14uI2vfESzsY/aqIrLQg9Kd7kCDQ7rSa+y9K8M/4jiomxy6jvKyXlsgdQk/ pLExJ4B/bywR/5Z/7G2p/8Kd3NA35QAt6qIV81wKG/mesnqTc1RBj2/ZwhWaJH904Tvs6+Qtmbu54jQc XDR/+NWM+0I88YodU/jmilIZ6Htkeh/+lzg+8XyP7X svgl/l+Q1vlcWSWIoe6sJRgnt9Lo6RWn1/Uc48RQLp8YBiD9070lpPV+UnnvNYn/8jL7a5P/3Br/J4QP +A/mNvLj8/9uqxK/rQpqsOw1Yv6r4J+cL5G9e/n3+TJ73uP5syc1ne++oMfvWWe3/P6U9/1PgXVLXGe3 VyxJ2Manx8If02a0Mf3p0Ws5tGE09GO2Wf/igs2Gk9 Yx2VtaKx+KQqdBR32JjsBrf8wu/vegzxHPwq+aWcO5htJQ0A7u9KKG97n8ZqgwGT7n/2Zp86/CqPD7/6 HqNcXrsuT8/hV/ecY++YogTZs8YD8Ia/0ZcPv/yvz2vUkgqFod45foEGyb7oiC4LeZ/R9o946z2+NXMZ 97H3Hr/za42cyFj6kwI0x/jV7FF+5Z7cvfP0Okhbsd h4+FXkDM+C7e/xQPlA+aP1jnZMu7h+3wtzT9e/w39guKn1Ff9bz6/t97QrnsYC8a6IH9+SDB5Mja31Da CTdmf4FDnp0NPtzuX+DGnxqBF8Lvdw6Io93+KBpV0Wt0j8t9V/D7/KWAp+2UKL5rtkbu75e5+4F/zqHr 9xIPhVz+M3rga/sjx+PGS/65YMx6UzV5fU2lgfEziM Loi2L+/V4Ffhz+FEJn7jEji7Mv+0d/kzn9JxmQ+hZ3/5T2/tulRUq4lSwy/U21MvHb7Bj1G64csTbjSQ H7K0pX7O/IU4Nq4DT6/l1t/wooEo5u4as78orF/oefy5y+PPXRrKH5/k1k1iG0yclsGM9xx9STv/7/td YK+89/0ujz/3yF/lMexF/fkS317790umhHKtv4164I 699nbtcZ8H6xmdJLNo/uTj3GEQvhOk330vG1/VFfc3+DGhF619qpn/yuUXl5G2+QY6hnM09Xz2i/23B7 +6xyh/4xe6u4ex70q/wa/hBBl5xSON+y62Xmdnj4/QP6F/Qf+Bon56g0761B/6eO+DfeD+jvc+2Md7H+ zIX/WB+8m0o3PEx6P/6dps7VO0Nzbc5L8iQk/iecDe sXD+lh50TpiK8Iqf662+uRvur+H+Ej6y1clx+atuA/qydwg52V9I/qudY34H1m8mrIN5UpmGpPS1SKj2 39fd7wD5mc7iP11uan174nW++9aaxMj0B/7qHqMc/kajas592q7sqIwg+/1U86g628snMrs8+u9EPE/c 98u4gpzyLdwioZjgtNal/j3d4moOek0kQ+EwyW0P9K xh70T/nQvlL7/EW5jywopC7N/T5hNcju7+0UrqkwaCtEC8qD91KNkK07jT4lXsL225/GSP/FWeYzjfcf 8Aq5Wyz/wAa8i72oAaQwF5fRH1Ln602T0+YicYi6bmF42TjNzcPr6naPZ+lp/8ZLS1O/EF9cVQ1XwgK7 lsKDeU++Mn++XbO/oN4w3x1/fLt/eN/nvdbpNyr88r jZ5L9N9W5ygP/CdVF80tWI+iqNI2RF03/c89iakC/XyRNqFU7xteQK1juP0btRfx/Nd/r3s7Oies3lnZ JrzYuZcKX9k5fniAX7bly4Pnsi6Lo+B5gha99fU41RV69QE/IpV402J5Fk6cNUiLJ0fA5HbhgfX6Ik51 5gdZS72jhl8mttAll2o4mxjLf/jRr04Jf+3mJ8/i4/ NVxL+i9gl3VAAuEK03tE+nvaiZ9xhCh99GcC+J4Gu2CXNc68hn7HL+t541x+5hy+FX/rXwg20LL/wq19 YdfpXrEw+/zvYbf22OTdBvKu41srW6D9wu1PzvoBzO7irullg2F4uxDGW8Q+rfczePP+Xhtw+/svi+6C an1sq79Wqpau2T28surX26f/Ku5/CrXOt4+ONl7rxa a3hwevqD0GgWZ+/TF74i2pYE1sPZMZgMhMwaTWrSM96l4aKepfRgQ/9vJ2XohZ4/ZP4qj8/9imt4+bqB /PVPxaZQLA7oW6HyanAjwf8fyQmko0H+8pMj+JGfR5iP5J7yr27wze/gQtlXpybIN1g4K/r8qe7u9qre ipynszOrPnLDw5gZBR75s4JTb0lS8Cu21Zq8uG5kAQ Pn4/0Olzy0w+ApzzHYd9dbrn6Ufj4+FRoKB73v63+PV0Uajolra3+O2VE+zV1RXqY7dmpig93Oe8M/TM VorNdMEpdbd6fkrletNV4U1wZz1faDv1PHscaWrnL6o/bdvSW7LigLijIpsfkEc+m/B1yuQi1ut+0dO8 ojf/HgHFe8yKIY+Ey00eez+RGReJmwLP5iKRN+48bh V99j+55z+BIL4m6A5xQyjd0I+NQ7dsvEt+k5oTf6i9e0yiQ27xp533xr+GL1jap34gDAm/gX4QeNre/v 8UL5es+Rw6++x9/id6c3ZC/1nJW+cQr1Y78tH0kZ+b5jlJ/x+nHXg1l4N/hYta58KaTo0C450Swxz0Ph s7w3/LvM12vqg+Dx2N4J59unfRm3Srjcpt0TRxf7jh 9K7Tcke1l2LWDLsp04Wzo5Uu674coNUoe8Y0JYN1wAneqJp0/nmBjOf+9HJo8/W/CrWNsmE+UaF8jkjR dD/3v/GA060kF5i2OGk70a0LMh1GG2Wj2x+yiq1euuM35h2XxWwtZ0IWjL8W7iARllksF1zRG1zj7Q16 nQE+1Z2yh5qhovh8q2vAD/Hs4aGpexs6/zKya53U/Q j/vbH3+2/bziMg4yheNfw2V/oX9B/4Kejet/+Rve983G2E2YIK4c+P3DmvtshdZ2C2Jv5eUtmSsyLR74 H/J8TD30dvisK0JSKMsI+GF8rb07frKSy31cAYJoDZeSr1009ijdId4tRqIW+8teE39wabS+veF10TyZ 31+Z4f7i+cyogNG8B9g7/kQe9mxgIis9jwjCso8ch2 N7cHmKk8CD3pmar5JnB/9F/wbSqeKwshm6X2HEI/JXNt/4vf4Ek0Z88fDG/MNHjS1A7n0BV9R/58vX2X l5XgjEctyuhEof+wg8ft10hFqgK/kizcv8wR+YzwCyxuolE5Ewnkl0Q2p/C/JgjU2N2/VCbHr4m+H+Lk Q21C4H2bN+f9WR4PrqwnS1yO5u37Q7o7/0ac381/3y [file] 0PuO254w/0znZ/9v753vn5Xfk//1t799+/Wvvv/47u P7t2/ef/HV5+++fvv1t1/99z1J04/6+Nufvf/ioohjwr383debh04//Fjf157k3p/52ZO924d6+ifW3G U7HcJuj6j1lZl7lP170yp//v7tw5e//fjlN//Fz+4B+H8QN936+9U3r/n4uJfgm3n1c+/fPv/d9nw8N6 569/bB8z36rv6yi/uivh4yv9+9/+b9tx//0b9vh113 +7S6a2lg4806Zn3r1ntA7217N77pTpQljonunrxGE3/WvP/13765w4Orcf4WF77/+/b5d9/87p0H64+8 /cNXH7+8//D23S/frnbcLOMzmX/dE5pcKe34ib117k89a/7u269++XLutx/fPv/y3bcvo/1b2ftvn581 7Rf/xT/vXvj+5+d/+vFff//vice president fixed income/7wL2//9B9vv/n9H/ 7wuz//+Yff/rMe2q752K+//+EPb//824A410+//zcIZ4R1lp/9xp8fPw+jbk2p3gx/5DMJAmA5gOq//O PP/59DsKGsU9d0cn/4G+LsIiEy0H415j5WJD7UGvw/9cfnVWpS5BzS9/vs2eWyXJ459tWdR4voAR/r89 gH5Rg82FhlEb25ig2//OsPL//vwbdf9q5Z3+9/9e7r r96+//Thb569Ev792M/Hyb9Y/0vXHm/zr2sz+2nPv/sPpzkUoyiXU42JL6wIlrMWy9/527c//+4vP3xy 9td4+kiQkt2l/ZHPaGkPJqE/PfsGf/Xh7fc//uWHP/+f/7Xavtvix71Nd/e+sTF+Floresita/f2H79/+5X+/ 7v33f/afu4pnsmg+fcl2hYD8/cef//3Hf+aTnpcCfz Gkn/oOOcp67uzRLJx+wXv/GLM4zXMgRlqrC+9pY7/24EusjSr80u/94d//83vzPLVr/Oy/v/q0D1d6uy er1/TtP/78j3/9k1/vp talent management/DLH/36fx841qwaJ/h3f/m3H/06o24lC0r//sef/kj0Yox8ml/95/8+7vvwpz /40IZgB0E6tP//6Z8/M+UVis5aN9lCZ//4wz//24+/ /+ff/+8By3098IzqPov4TLatcd/5/SoDkr//97+8Wty/fPb5l++///w3p2yerJyq8032+hbVp/7qd//z hzd5+9O/sa1uxGB+GqCfV/37+0Zlik6l/Ut4fYu+/+Lj6/W/h1a2CrRdT//j2U3V0Hm+z3eff/7qVV+/ bXcGhXubyuOI/w+g5DFbLnRlKFO7msQytHxchaBjCl aLIJcqIUUaYog5BS8IdKRwENQxW1T3BGWvnw8iGIFrOOJioXIzAdMlLJBLZF8NiIMlQT2HPJs3AVJyET SdIeJiQMGenqK9QUBnORRzHQBgT1PbosVwaWDhNNUqAb7+WZ9dm4LqTsDtYUUvTsa4YU0RgSOiRK0QzE SzhU3ylrFsG785gsQkPKNwAllcd9HjVXsbWYFCZK6I ZDE6CIY6QTWiYt4+HU9fi7HaTnOoGZQpSgs7YZ8KsYKqq2JlFN1DS3GpHWMfOFTLGNU8j9IeQSYhenpy isvcC4CkPAB9oO8nGIR2BNMlCXenICAxPODhIHP7DAHiDSfjZMIzSJOvQKEsHRWiMDi9lANnIK2VI7Cl ZDVoMODJJEWopeJhCn4mXXqMT9GFNMCQAAjDUXPnEF bvMHSbQJWnK8LdjrJinRYmEDBUIVpbIjhjGVGsjM1gcJjzJ4VtJNH9k5OpIN5EI7AfWMZxRNQIXRC0a1 AfSZJienrdgykhJxYxYKXlSBQlQBJzSK2Btm4kaVUzgoIoHNJVORbqYlwrVC8qrAbfphedA8EkjJBwYO A+WkQsZW0tso2+PmXgYFRhXyt4DMWgYMflPZAtTYPx WHLzT6ziWZApFmLlJEFaCcTcBS0Dq0DfcQWjTd5isaZxLmwVeHNzKsmcJRYwUJIwURQpLcHOBIAgMHSr ORAfMRD8RNQoNDSvQRbmZSCgZVO1HYX1JWXaCTObEQ3jTzXvKPZiZxIxPSKnZVEvFGAsoyFJAZKvRPH5 XVU5XIQzBJYsXXKhXFbrZOIcGHVgQQNkRDI6FOF0JN NjCwPpZHYkEQOxLLBkBGDzWJKuqsPMIGMwNSFtDHG9CTYiHRAnDHHsRHwrRYNkDBYlKIjqVTEpNYSqAG 4gCjAwMDAwMDAyOTggMDAwMDAgbiAKMDAwMDAwMDQwOSAwMDAwMCBuIAowMDAwMDAwNTIzIDAwMDAwIG 0wEvClGXQoCSS8PXPoKWDkCMZrenIAZREyUOWxSNe5 WHJlLOUcRXLxBKacFTWcXCTwUSN7VJZuERDtWD6oFkHdWWRnIXW5MyArEITgQFTcoyRTYUTvYGWtLJE9 ZuPuHJXxLTMzGSunOHGySVRaANqdSTFrSGNiXF1oEoUlVPTbFQUyPNpiNKOqBRTpxlLPIZNwAVPuETDr HhOpEBNpUKAdDAjiGRSxOWF3UFx9VRIkDFMnVT1dZr YdIFZgDCP2DRopPBWkLQTaflTTOGJpUDAjEYozJLYzCBMhKXDjUVosEREuKEPbSGF5MROgLWXiEN4pVm JiXTAxRACxRGYnHvA8ViRyDmPNdLSzgPztiya2JSlpN5w4TLTcKKefGW4lnuVzXKOsBpytBo1pjXA3CE HxQvsPVq3Uc6RsbfB6llHyWtG8NRd6NzGbTR8E ID Date Data Source [id number] 11/19/2020 08:44:41 AM EDT [facility] Name Value Range Interpretation Code Description Data Randa rce(s) Supporting Document(s) [facility] TRYLHv6hTjHHZoAlr2CeVtMrNXXjVX6ttkh0N7M6xTAuD6ByrKWfj8wlF4XrV2SuOQRqFPVUEP0JkKYn jb2 [file] /dye weigher/Ynd2A/IK3ndhf3oGfRFyiMglwC3WjMQRV8H69dlepBxVJLu9l6B12LL/Ymd+gP17zx408tliY2P Ccd3KFCXiPQLFujR22fv2pIVxXMgYWZogzaayksBRADYKRUTuGCVGLVKSXUU7ezucl+LLALsimNHSM1a [file] 8s6UI9639+j0h27cWQPxT/70SIzR3E3b74La/uvKZD +d+Ze/oYVXzZUDeqeJ+cyx1Obq//iVy0k5kp/++v0nZ3+9TN+myF13wh/8dUi9SW+j/PTsG/zNh7c//v jX7//yv//m3xH8033dme8jtTCSLv17km39l5or//6/Xvf+xz//+LTSa1D6Mqc5vtDS/vnjL/27699Xa1 0ZFfirt/2a2bz25Po+eoFlaAH8j5z/IOH/rYpm+Df/ 9M4w2He///Dzj29/+H++/8+/JNEQM5np3//t3Tc/X6/gf/27pm//5y//+vc/+fV+DP/0/Q9/+NMnD3h+ gn/71//5/V9+8t/apTP79fuz/r7rJYg6e//xt//72O/Dn//4g8evZumzG2br/erP//zO1KRwo76mRzd1 x+//7X/++Md/++MffvzsTVYphZ/3enCU1B//86+v/v bvn33+6/uufCs9bwmxd/sh2k8mDh32f3++p+zvPuMov9+a//8/ub+J8L9tZi1ON/6v79/k7c//8fbJa9 Uz2RpN327mIe3n097/qYh71aznFg5srDh0vPq7qArjn5Fx6O0/7z7//AWix14s9jnRm5oTI9K/P7JKkK PKDL1hu2BzJPVaKvCtLI9cfmqgHFMsTD5dbho8M0Ja zXerZFdTMZKwVi1lwQBmII1OSPH7VGqhYPJmFCDbI7QgtP7dY32ctBLiXcHaWUOLTW7JiwM1EEC7VIS8 LZJzJnMuBXPsCL12FVBmQXDBDc4obkJzWilLExNxVN9nxou9T1E4xOLnZ778nHfwktHqXF2Uf9FwjNLv UX7EyBUjhNJsGNYhDGAbU2uct9HsOSgcPGBKRm4orr EaPprJPsQwYE9picv8E2P5dOapxlEhGGAWOCsjNgvnTR9ycZxpvwcdO2CulHRtLUQoS6ZyNIGfw21EBN KvOLnDJlHhQuVrNCC7PDv3OOuwHjFzWMLbHLWvVSZcOD2UhKBeKUZbZLTBZHfrUwswZLKxiH2jmZVOy4 GyE52HGJFgRBxDZVpNUJJ1QUZjVsDsHU2AqROfMYW4 DDkQACOHKXkSGGffTkKhc7X9IANwO7RySQUxwtRsXNZIRDmoQfyfQC7xtQapuvbsK5MvzRNmUONUYYZj LIRqNTHrFYTxH5Kil4R8P7QrQZaTIMTOPRiDUGamBjX4c97vnhTICOVrTZNwNC9+EG4tl3OsUb2IFLEu KG1tfyr7LB4AvUOtWA5VCIrzuaRzC5efiiIbEiOnKM ENRN9rO9PlfB38MBH+XcLqUC2ybjs4ryBsWfQlMCCvSYSvITRbMYrgTWAeQCOpHVFsUKN1NIY8ISYgVt VqLYUxQlIuCLSzNIPkLONdqmCAEKXpTRO5DIMaLJXvFIFqJHDsEDcvSYTbTHB0KTv4ILAzVPHfWB4xEj KqHHIoPIPzKDZsLdP0IsZnVwCJMPJnDSDyWRZnSyUn XRBbSJEjRCacEZRqRHLiIMo5ELScTFOgNB4cPcCgAZGhTSEyWYPyYQTxGZQlqyQZQFSsZXCoPMA3DRUg HTPwUEGoUBytWZNdHOVrSDX2OSXeJQMpRJ7hNvDuJCQkGKI7KiJvUCDpMQSalkFCBVUzKTAeKUY7SGXc YOOoRALtKVvhYCRlWJPpFlA0AVOpIJXrLW8zMaNuJS FjPML0GEQrXAIoXNHbqgXLAMXsNWDySBn5HfEhWIEgOQMwLGuzRIFqMRAlYHfoHGIjYZEyKU0zHbWrAG XrTRNzCNJaSEZiJZQevgSAJKZyUEVjRRS8BfCbXDViFNImQIlmURShXHJlINQ7OVNdDTElDE3wXoPvOB XnLmW1AdAsMIFhUAGyraJUEXFwXXZwTBOnNOLdROKm TJLzEWoqCDXoDOJoWjL8NXQqDAZhAE8iGlDyBMVqAGE3WTOvYSGoPQSqsbIGDDBsPEIdIAUyLDY8THQj EYZbLXb2jpDzpLPtGen2Yt0KaJmcWXP9Bq3BnqLvPBZgJONBWy4Gy610DBMbNEHBLvd+PgpzdGFydHhy OJJEUcP5ROcCPHQBR2C= ID Date Data Source [id number] 11/19/2020 10:43:52 AM EDT [facility] Service Cmnt XXX-Imp : NoneMicroorganism XXX Cult : NEGATIVE for fecal occult blood by immunochromatography. This test is not designed to detect bleeding from the upper GI tract. To detect bleeding from the upper tract, order Fecal Occult Blood, Upper GI (Hemoccult-SENSA). Name Value Range Interpretation Code Description Data Randa rce(s) Supporting Document(s) ID Date Data Source [id number] 11/19/2020 10:08:52 AM [facility] Service Cmnt XXX-Imp : NoneOB Pnl Stl [...] Name Value Range Interpretation Code Description Data [facility] rce(s) Supporting Document(s) ID Date Data Source [id number] 11/19/2020 07:27:28 AM [facility] US ABDOMEN LIMITED [id number] RESULTInte rpreted by:Radha Barahona, MDPROCEDURE INFORMATION: Exam: US Abdomen, Limited; Right Upper [...] rce(s) Supporting Document(s) ID Date Data Source [id number] 11/19/2020 07:12:59 AM [facility] Name Value Range Interpretation Code Description Data Randa rce(s) Supporting Document(s) Choriogonadotropin.beta subunit free [Units/volume] in Serum or Plasm a <5 [facility] (NOTE)Levels between 5 and 25 [IU]/L may indicate earlypregnancy and should be repeated after 48 hours. ID Date Data Source [id number] 11/22/2020 02:08:03 PM [facility] Name Value Range Interpretation Code Description Data Randa rce(s) Supporting Document(s) Acetylcholine receptor Ab [Moles/volume] in Serum 0.05 nmol/L 0.00-0. 24 [facility] (NOTE) Nega tive: 0.00 - 0.24 Borderline: 0.25 - 0.40 Positive: >0.40Performed At: [facility] [id number] Ibarra MD Ph:[phone] ID Date Data Source [id number] 11/23/2020 02:08:35 PM [facility] Name Value Range Interpretation Code Description Data Randa rce(s) Supporting Document(s) Acetylcholine receptor blocking Ab [Units/volume] in Serum 22 % 0-25 [facility] (NOTE)Results of this test are labeled f or research purposes only by theassay's director learning. The performance characteristics of this assayhave not been established by the director learning. The result shouldnot be used for treatment or for diagnostic purposes withoutconfirmation of the diagnosis by another medically establisheddiagnostic product or procedure. The performance characteristics weredetermined by [facility]. Negative: 0 - 25 Borderline: 26 - 30 Positive: >30Performed At: [facility] [id number] Ibarra MD Ph:[phone] ID Date Data Source [id number] 12/14/2020 06:06:49 PM [facility] Name Value Range Interpretation Code Description Data Randa rce(s) Supporting Document(s) Acetylcholine receptor modulation Ab/Acetylcholine Ab.total in Serum [facility] (NOTE)Test not performed. Unable to perf orm test due to currentunavailability of reagents or discontinuation of test. Negative: <21 Equivocal: 21 - 25 Positive: >25Effective December 12, 2020, test [id number] AChRModulating Abs, Serum was made non-orderable dueto an ongoing reagent issue. Specimens are storedfrozen and can be referenced to [facility] to provide aresult for our clients.[id number] Acetylcholine Receptor Modulating AntibodyThis is a temporary send-out until the FlowCytometry assay for the detection of AChR ModulatingAbs can be brought online in January 2021.Performed At: [facility] [id number] Sanjai MD Ph: [phone] ID Date Data Source [id number] 11/19/2020 09:24:55 AM EDT [facility] Service Cmnt XXX-Imp : NoneRespiratory P CR Panel : PCR ResultsMicroorganism XXX Cult : See Labs Tab for 2019 nCoV RT-PCR resultsHAdV DNA QI COLBY+non-probe : Not DetectedHCoV [id number] Nph QI COLBY+non-probe : Not DetectedHCoV TEN2CUV Nph QI COLBY+non-probe : Not [id number] RNA Nph QI COLBY+non-probe : Not [id number] RNA Upper resp QI COLBY+probe : Not [...] DNA Nph Q COLBY+non-probe : Not DetectedB [id number] DNA Nph COLBY+non-probe : Not Detected Name Value Range Interpretation Code Description Data Randa rce(s) Supporting Document(s) ID Date Data Source [id number] 11/19/2020 07:01:33 AM EDT [facility] Name Value Range Interpretation Code Description Data Randa rce(s) Supporting Document(s) Leukocytes [#/volume] in Blood by Automated count 8.2 10*3/uL 4-10 [facility] Erythrocytes [#/volume] in Blood by Automated count 4.24 10*6/uL 4.1- 5.3 [facility] Hemoglobin [Mass/volume] in Blood 12.2 g/dL 11.5-15.5 [facility] Hematocrit [Volume Fraction] of Blood by Automated count 36.4 % 3 6-45 [facility] Erythrocyte mean corpuscular volume [Entitic volume] by Auto mated count 85.9 fL 80-96 [facility] Erythrocyte mean corpuscular hemoglobin [Entitic mass] by Automated count 28.7 pg 27-33 [facility] Erythrocyte mean corpuscular hemoglobin concentration [Mass/volume] by Automated count 33.4 g/dL 32.0-36.0 [facility] distribution width [Ratio] by Automated count 13.5 % 11.5-14.5 [facility] Platelets [#/volume] in Blood by Automated count 276 10*3/uL 150-400 [facility] Differential cell count method - Blood [facility] Neutrophils/100 leukocytes in Blood by Automated count 72 % [facility] Lymphocytes/100 leukocytes in Blood by Automated count 18 % [facility] Monocytes/100 leukocytes in Blood by Automated count 7 % [facility] Eosinophils/100 leukocytes in Blood by Automated count 2 % [facility] Basophils/100 leukocytes in Blood by Automated count 1 % [facility] Neutrophils [#/volume] in Blood by Automated count 5.95 10*3/uL 1.8-7 .0 [facility] Lymphocytes [#/volume] in Blood by Automated count 1.45 10*3/uL 1.2-4 .0 [facility] Monocytes [#/volume] in Blood by Automated count 0.60 10*3/uL 0-0.8 [facility] Eosinophils [#/volume] in Blood by Automated count 0.13 10*3/uL 0-0.5 [facility] Basophils [#/volume] in Blood by Automated count 0.07 10*3/uL 0-0.2 [facility] Nucleated erythrocytes/100 leukocytes [Ratio] in Blood by Automated count 0 /100{WBCs} 0-0 [facility] ID Date Data Source [id number] 11/19/2020 07:19:33 AM [facility] Value Range Interpretation Code Description Data Randa rce(s) Supporting Document(s) Cardiactroponin T pnl SerPlHS <14 [facility] ID Date Data Source [id number] 11/19/2020 07:21:14 AM [facility] Value Range Interpretation Code Description Data Randa rce(s) Supporting Document(s) Albumin [Mass/volume] in Serum or Plasma by Bromocresol green (BCG) dye binding method 4.3 g/dL 3.5-5.2 [facility] Bilirubin.total [Mass/volume] in Serum or Plasma 0.8 mg/dL <1.2 [facility] Bilirubin.direct [Mass/volume] in Serum or Plasma <0.3 [facility] Alkaline phosphatase [Enzymatic activity/volume] in Serum or Plasma 71 U/L 35-104 [facility] Aspartate aminotransferase [Enzymatic activity/volume] in Serum or Plasma 14 U/L <32 [facility] Alanine aminotransferase [Enzymatic activity/volume] in Seru m or Plasma 13 U/L <33 [facility] Protein [Mass/volume] in Serum or Plasma 7.2 g/dL 6.4-8.3 [facility] ID Date Data Source [id number] 11/19/2020 07:21:14 AM [facility] Value Range Interpretation Code Description Data Randa rce(s) Supporting Document(s) Lipase [Enzymatic activity/volume] in Serum or Plasma 21 U/L 13-6 0 [facility] ID Date Data Source [id number] 11/19/2020 07:21:14 AM [facility] Value Range Interpretation Code Description Data Randa rce(s) Supporting Document(s) Bicarbonate [Moles/volume] in Serum 23 mmol/L 22-29 [facility] Chloride [Moles/volume] in Serum or Plasma 99 mmol/L 98-107 [facility] Creatinine [Mass/volume] in Serum or Plasma 0.81 mg/dL 0.50-0.90 [facility] Glucose [Mass/volume] in Serum or Plasma 85 mg/dL 70-140 [facility] Potassium [Moles/volume] in Serum or Plasma 4.0 mmol/L 3.4-5.1 [facility] Sodium [Moles/volume] in Serum or Plasma 135 mmol/L 136-145 L [facility] Urea nitrogen [Mass/volume] in Serum or Plasma 8 mg/dL 6-20 [facility] Anion gap 3 in Serum or Plasma 13 mmol/L 8-15 [facility] Osmolality of Serum or Plasma by calculation 278 mosm/kg 275-300 [facility] Creatinine/Urea nitrogen [Mass Ratio] in Serum or Plasma 9 [facility] Calcium [Mass/volume] in Serum or Plasma 9.2 mg/dL 8.6-10.0 [facility] Glomerular filtration rate/1.73 sq M pre dicted among non-blacks [Volume Rate/Area] in Serum or Plasma by Creatinine-based formula (MDRD) >6 0 [facility] Glomerular filtration rate/1.73 sq M pre dicted among blacks [Volume Rate/Area] in Serum or Plasma by Creatinine-based formula (MDRD) >60 [facility] ID Date Data Source [id number] 11/19/2020 06:24:[address] [facility] Name Value Range Interpretation Code Description Data Randa rce(s) Supporting Document(s) SARS-CoV-2 RNA 2019 nCoV Real-Time RT-PCR: NOT DETECTED [facility] This lab was ordered by [facility] and reported by [facility]. ID Date Data Source [id number] 11/19/2020 09:25:32 AM EDT [facility] Name Value Range Interpretation Code Description Data Randa rce(s) Supporting Document(s) Specimen source [Identifier] of Unspecified specimen [facility] SARS-CoV-2 RNA 2019 nCoV Real-Time RT-PCR: NOT DETECTED [facility] Assay Performed [facility] Patients first test for [facility] Patient employed in healthcare setting [facility] Patient has symptoms related to [facility] When did you start to experience these symptoms [Date and time] [Phen X] [facility] Patient was hospitalized because of this condition [facility] patient was admitted to ICU for condition [facility] Patient resides in a congregate care setting [facility] status [facility] ID Date Data Source [id number] 11/18/2020 07:06:50 PM EDT [facility] Name Value Range Interpretation Code Description Data Randa rce(s) Supporting Document(s) Color of Urine [facility] Clarity of Urine [facility] Specific gravity of Urine by Refractometry automated 1.025 1.003 -1.030 [facility] pH of Urine by Automated test strip 5.0 5.0-8.0 [facility] Protein [Mass/volume] in Urine by Automated test strip 30 mg/dL Neg [facility] Glucose [Mass/volume] in Urine by Automated test strip Neg [facility] Ketones [Mass/volume] in Urine by Automated test strip 20 mg/dL Neg [facility] Bilirubin.total [Presence] in Urine by Automated test strip Negative [facility] Hemoglobin [Presence] in Urine by Automated test strip Neg [facility] Leukocyte esterase [Presence] in Urine by Automated test strip Negative [facility] Nitrite [Presence] in Urine by Automated test strip Negati ve [facility] Leukocytes [#/area] in Urine sediment by Automated count 0 /HPF 0 -5 [facility] Erythrocytes [#/area] in Urine sediment by Automated count 0 /HPF 0-3 [facility] Epithelial cells.squamous [#/area] in Urine sediment by Auto mated count 1 /HPF None [facility] Mucus [#/area] in Urine sediment by Microscopy low power field None [facility] ID Date Data Source [id number] 11/18/2020 06:29:33 PM EDT [facility] Name Value Range Interpretation Code Description Data Randa rce(s) Supporting Document(s) ED Provider Note [facility] UDHYQc1rGwELVbFk16/KWFvlUEOhu5QiPSbpBGz5XSzwEURlP2AqEVM8xL1zRVH6GItMUzWjHaMnFMJr lbm [file] MDAyMzIyOCAwMDAwMCBuDQowMDAwMDIzNDEyIDAwMD BqVJ8AXqRaUEKtWhL5MOXhEWLlNVJhiy6HrQJlgFkffm1OVBeULh1XgPfsDXM9UUkeSk7boUQsDKKpSJ SDFg3NktDdVQQzIVQOYObiCLYmQAl7Ugr5PTO6E2PkRKO6VpLwWyQ3XFR4ELz1GBW8PnJoUeP3PBYsWy D1GwoqHiL0BUlyOIC5XCjgZfD1HnjgJBzaKuP+IF0g DQo+Lc8Lp0PuwzV7uqRlTTqiWaniEE7EVGUGL7XIRr== ID Date Data Source [id number] 11/18/2020 12:13:00 PM EDT [facility] DATE OF EXAM: 11/18/2020XAM:Chest 1V Po rtable CLINICAL INDICATION: SOB TECHNIQUE: Single chest x-ray. COMPARISON: Chest x-ray dated 10/16/2020. FINDINGS: The lungs are clear and well expanded.No consolidation or pleural effusion is identified.Normal cardiovascular silhouette.Unremarkable osseous structures. IMPRESSION: 1. No acute cardiopulmonary disease. X2End of diagnostic report for accession: [id number] Interpreted: Leroy Cabrera MDTranscribed: 11/18/2020 12:12 PMSigned: 11/18/2020 12:13 PM Leroy Cabrera MD --------- [facility] # [id number] BILL # [id number] Name Value Range Interpretation Code Description Data Randa rce(s) Supporting Document(s) ID Date Data Source [id number] 11/18/2020 01:39:19 PM EDT [facility] Name Value Range Interpretation Code Description Data Randa rce(s) Supporting Document(s) ESR 46 mm/h (0-20) [facility] ID Date Data Source [id number] 11/18/2020 12:37:40 PM EDT [facility] Name Value Range Interpretation Code Description Data Randa rce(s) Supporting Document(s) MAGNESIUM 1.9 mg/dL (1.7-2.4) [facility] ID Date Data Source [id number] 11/18/2020 12:37:40 PM EDT [facility] Name Value Range Interpretation Code Description Data Randa rce(s) Supporting Document(s) TSH,ULTRASENSITIVE @ 0.835 mIU/L (0.360-4.170) [facility] [address] [facility] [address] ID Date Data Source [id number] 11/18/2020 12:37:40 PM EDT [facility] Name Value Range Interpretation Code Description Data Randa rce(s) Supporting Document(s) C REACTIVE PROTEIN @ 1.5 mg/dL (0.0-0.5) [facility] PER[facility] AT [address] [facility] [address] ID Date Data Source [id number] 11/18/2020 12:37:40 PM EDT [facility] Name Value Range Interpretation Code Description Data Randa rce(s) Supporting Document(s) TOTAL PROTEIN 8.2 g/dL (6.4-8.2) [facility] ALBUMIN 3.4 g/dL (3.5-4.6) L [facility] GLOBULIN 4.8 g/dL (2.7-4.3) [facility] ALB/GLOB RATIO 0.7 RATIO [facility] BILIRUBIN,TOTAL 1.0 mg/dL (0.0-1.0) [facility] [place] [facility] PLEASE NOTE:Total bilirubin results may be falselyelevated in patients taking Eltrombopag. BILIRUBIN,CONJUGATED 0.2 mg/dL (0.0-0.3) [facility] BILIRUBIN,UNCONJ. 0.8 mg/dL (0.0-0.7) [facility] ALKALINE PHOSPHATASE 76 U/L (45-117) [facility] AST (SGOT) 12 U/L (11-39) [facility] ALT (SGPT) 23 U/L (12-78) [facility] ID Date Data Source [id number] 11/18/2020 12:37:40 PM EDT [facility] Name Value Range Interpretation Code Description Data Randa rce(s) Supporting Document(s) CK 52 U/L (26-192) [facility] ID Date Data Source [id number] 11/18/2020 12:37:40 PM EDT [facility] Name Value Range Interpretation Code Description Data Randa rce(s) Supporting Document(s) SODIUM 137 mmol/L (136-145) [facility] POTASSIUM 4.2 mmol/L (3.6-5.2) [facility] CHLORIDE 108 mmol/L (100-108) [facility] CO2 28 mmol/L (22-31) [facility] ANION GAP 1 mmol/L (7-16) L [facility] UREA NITROGEN 7 mg/dL (7-24) [facility] CREATININE 0.84 mg/dL (0.60-1.00) [facility] BUN/CREAT RATIO 8.3 RATIO (10.0-20.0) L [facility] GLUCOSE 76 mg/dL (70-99) [facility] CALCIUM 8.7 mg/dL (8.4-10.2) [facility] GFR >60 ml/min/1.73m2 (>59) [facility] GFR ( AMER) >60 ml/min/1.73m2 (>59) [facility] GFR INTERPRETATION [facility] [place] --NORMAL KIDNEY FUNCTION OR MILD DISEASE - GFR >OR= 60CHRONIC KIDNEY DISEASE - GFR 15 - 59RENAL FAILURE - GFR <15 Est. GFR calculation based on the MDRDstudy equation, which assumes a steadystate for creatinine. Est. GFR should notbe used for medication dosing. ID Date Data Source [id number] 11/18/2020 12:29:22 PM EDT [facility] Name Value Range Interpretation Code Description Data Randa rce(s) Supporting Document(s) HCG, QUAL. SERUM (NEG) [facility] ID Date Data Source [id number] 11/18/2020 12:13:04 PM EDT [facility] Name Value Range Interpretation Code Description Data Randa rce(s) Supporting Document(s) WBC 9.0 10*3/uL (4.1-11.0) [facility] [place] [facility] [place] RBC 4.41 10*6/uL (4.00-5.40) [facility] HGB 12.7 g/dL (12.0-16.0) [facility] HCT 38.2 % (36.0-47.0) [facility] MCV 86.7 fL (80.0-95.0) [facility] MCH 28.9 pg (27.0-32.0) [facility] MCHC 33.3 g/dL (32.0-36.0) [facility] RDW 13.6 % (10.5-14.5) [facility] PLT 296 10*3/uL (150-450) [facility] MPV 9.4 fL (7.1-10.7) [facility] NEUT % 75.4 % (35.0-75.0) [facility] LYMPH % 15.0 % (16.0-52.0) L [facility] MONO % 7.6 % (0.0-8.0) [facility] EOS % 1.1 % (0.0-5.0) [facility] BASO % 0.9 % (0.0-4.0) [facility] NEUT # 6.8 10*3/uL (1.8-7.7) [facility] LYMPH # 1.4 10*3/uL (1.2-4.8) [facility] MONO # 0.7 10*3/uL (0.0-0.8) [facility] Eosinophils [#/volume] in Blood by Automated count 0.1 10*3/uL (0.0-0 .5) [facility] [place] [facility] BASO # 0.1 10*3/uL (0.0-0.2) [facility] ID Date Data Source [id number] 11/11/2020 06:42:00 AM EDT [facility] Name Value Range Interpretation Code Description Data Randa rce(s) Supporting Document(s) SARS-CoV-2 (COVID 19) NEGATIVE - SARS-CoV-2 (COVID19) [facility] This lab was ordered by [facility] a nd reported by [facility]. ID Date Data Source [id number] 10/24/2020 12:49:00 PM EDT [facility] ([facility]) Name Value Range Interpretation Code Description Data Randa rce(s) Supporting Document(s) Venipuncture Laboratory test result [facility] ([facility]) musk ab cheri ra ssa ssb anca lyme parris Nuclear Ab [Titer] in Serum Laboratory test result [facility] ([facility]) HOMOGENEOUS PATTERN DETECTED - TITER 320 SPINDLE PATTERN DETECTED - TITER 320 ID Date Data Source [id number] 10/24/2020 12:49:00 PM EDT [facility] ([facility]) Name Value Range Interpretation Code Description Data Randa rce(s) Supporting Document(s) Lyme Disease Screen with Reflex 0.66 0-0.90 [facility]) <content>Normal Range: Less than 0.90</c ontent>
<content>Index [...] 4 weeks.</content>
<content></content> ID Date Data Source [id number] 10/24/2020 12:49:00 PM EDT [facility] Name Value Range Interpretation Code Description Data Randa rce(s) Supporting Document(s) Angiotensin converting enzyme [Enzymatic activity/volu me] in Serum or Plasma 21 U/L 9 [facility] ([facility]) musk ab cheri ra ssa ssb anca lyme parris Konyq-8-Nbblemvttcp interpretation in Amniotic fluid Laboratory keyshawn t result [facility] ([facility]) NEGATIVE This test did not detect abnorm al levels of anti-MuSK antibodies. Cell Fractions/Differential [Interpretation] in Body f luid Laboratory test result [facility] ([facility]) Comments: This result does not exclude a diagnosis of Myasthenia Gravis. Recommendations: Health care providers, please contact the [facility] Client Services Department at if you wish to speak with a clinical mobile sales consultant regarding this test result. Other testing [...] [Units/volu me] in Serum Laboratory test result [facility] ([facility]) musk ab cheri ra ssa ssb anca lyme parris Laboratory test finding (navigational concept) Laboratory test result [facility]) 1. Taina Hart, et al. (2005) ELENA 293: 1 906-14. (PMID: 12647926) 2. MARIEL Reyes et al. (2000) Postgrad ed 107: 211-4, 220-2. (PMID: 22169110) 3. Joe S, et al. (2014) J Auto immun 52: 90-100. (PMID: 41846267) 4. Dasha Guerrero et al. (2013) Autoimmun Rev 12: 931-5. (PMID: 95117193) This test was developed and its analytical performance characteristics have been determined by [facility]. It has not been cleared or approved by the U.S. Food and Drug Administration. This assay has been validated pursuant to the CLIA regulations and is used for clinical purposes. Laboratory oversight provided by Shaan Hunt M.D., Ph.D., CLIA license becerra, [facility] (CLIA# [id number]) Testing performed at: [facility] [address] [place] [address] Reference lab test method Laboratory test result [facility] ([facility]) Detection of antibodies was performed by Radioimmunoassay (MIROSLAVA) methodology. Limitations of analysis: Reagent effectiveness may affect the signal intensity of the response. Although rare, false positive or false negative results may occur. All results should be interpreted in the context of clinical findings, relevant history, and other laboratory data. Laboratory test finding (navigational concept) Laboratory test result [facility] ([facility]) <content> < /content>
<content>Interpretive Result Table</content>
<content> </content>
<content>INTERPRETIVE RESULT: Negative</content>
<content>TEST: anti-MuSK</content>
<content>TECHNICAL RESULT: <1:10</content>
<content>REFERENCE RANGE: Negative <1:10, Borderline 1:10, Positive >=1:20</content>
<content> </content>
<content> ----</content>
<content></content> Nuclear Ab [Presence] in Serum Laboratory test result 0-0 [facility]) titer pending Sjogrens syndrome-B extractable nuclear Ab [Units/volu me] in Serum Laboratory test result [facility] musk ab cheri ra ssa ssb anca lyme parris Rheumatoid factor [Units/volume] in Serum or Plasma 10.6 U/mL 0-13.9 9 [facility] ([facility]) musk ab cheri ra ssa ssb anca lyme parris ID Date Data Source [id number] 10/24/2020 12:49:00 PM EDT [facility]) Name Value Range Interpretation Code Description Data Randa rce(s) Supporting Document(s) Neutrophil cytoplasmic Ab [Presence] in Serum Laboratory test result [facility] ([facility]) ANCA Screen includes evaluation for p-AN CA, [...] may be ordered. ID Date Data Source [id number] 10/24/2020 12:49:00 PM EDT [facility] ([facility]) Name Value Range Interpretation Code Description Data Randa rce(s) Supporting Document(s) Creatine kinase [Enzymatic activity/volume] in Serum or Plasma 52 U /L 26-174 [facility] ([facility]) musk ab cheri ra ssa ssb anca lyme parris C reactive protein [Mass/volume] in Serum or Plasma 1.6 mg/dL 0-1.0 Above high normal [facility] ([facility]) musk ab cheri ra ssa ssb anca lyme parris Miscellaneous Laboratory test result [facility] ([facility]) musk ab cheri ra ssa ssb anca lyme parris Erythrocyte sedimentation rate by Westergren method 10 mm/hr 0-20 [facility] ([facility]) musk ab cheri ra ssa ssb anca lyme parris ID Date Data Source [id number] 10/24/2020 12:49:00 PM EDT [facility] [place] [facility]) Name Value Range Interpretation Code Description Data Randa rce(s) Supporting Document(s) Glucose [Mass/volume] in Serum or Plasma 86 mg/dL 74-106 [facility] ([facility]) [place] [employer] (ADA) Recommended Range is 65-99 mg/dL Urea nitrogen [Moles/volume] in Serum or Plasma 9 mg/dL 6-20 [facility] ([facility]) Sodium [Moles/volume] in Serum or Plasma 141 mmol/L 136-145 [facility] ([facility]) Creatinine [Mass/volume] in Serum or Plasma 0.7 mg/dL 0.5-1.3 [facility] ([facility]) Carbon dioxide, total [Moles/volume] in Serum or Plasma 23 meq/L 20 -31 [facility] ([facility]) Potassium [Moles/volume] in Serum or Plasma 4.0 mmol/L 3.5-5.3 [facility] ([facility]) Chloride [Moles/volume] in Serum or Plasma 107 mmol/L 98-107 [facility] ([facility]) eGFR-female 97 mL/m/1.73m [facility] ([facility]) eGFR-Aa female 117 mL/m/1.73m [facility] ([facility]) <content>Normal Kidney Function or Mild Disease GFR >59 mL/min/1.73m2</content>
<content>Chronic Kidney Disease GFR 15-59 mL/min/1.73m2</content>
<content>Renal Failure GFR <15 mL/min/1.73m2</content>
<content></content> Anion Gap 11 mmol/L 7-16 [facility] ([facility] Alanine aminotransferase [Enzymatic activity/volume] in Seru m or Plasma 24 U/L 4-36 [facility] ([facility]) Effective 08/16/2016: [employer] has indicated interference with the drugs sulfasalazine and sulfapyridine. They suggest collection should occur prior to drug administration due to falsely depressed results. Aspartate aminotransferase [Enzymatic activity/volume] in Serum or Plasma 26 U/L 8-33 [facility] Alkaline phosphatase [Enzymatic activity/volume] in Serum or Plasma 66 U/L 46-116 [facility] ([facility]) Albumin [Mass/volume] in Serum or Plasma 4.3 g/dL 3.6-5.1 [facility] ([facility]) Protein [Mass/volume] in Serum or Plasma 7.3 g/dL 6.4-8.3 [facility] ([facility]) Results may reflect a potential interfer ence in Total Protein results in patients receiving dextran as blood volume expanders. Bilirubin.total [Mass/volume] in Serum or Plasma 0.8 mg/dL 0.3-1.2 [facility] ([facility]) Albumin/Globulin [Mass Ratio] in Serum or Plasma 1.4 Ratio 1.0-2.0 [facility] ([facility]) Globulin [Mass/volume] in Serum by calculation 3 g/dL 1.9-3.7 [facility] ([facility]) Calcium [Mass/volume] in Serum or Plasma 9.6 mg/dL 8.9-10.5 [facility] ([facility]) ID Date Data Source [id number] 10/24/2020 12:49:00 PM EDT [facility]) Name Value Range Interpretation Code Description Data Randa rce(s) Supporting Document(s) WBC. 10.58 x10E3/uL 4.2-12.0 [facility] ([facility]) Hemoglobin [Mass/volume] in Blood 12.8 g/dL 12.0-16.0 [facility] ([facility]) Erythrocytes [#/volume] in Blood by Automated count 4.24 x10E6/uL 3.9 -5.4 [facility] ([facility]) MCH 30.1 pg 27-33 [facility]) MCV 89.2 fL 80-98 [facility]) Hematocrit [Volume Fraction] of Blood by Automated count 37.8 % 3 6-47 [facility] ([facility]) Platelets [#/volume] in Blood by Automated count 281 x10E3/uL 135-420 [facility] ([facility]) RDW 13.1 % 11.2-15.2 [facility] ([facility]) MCHC 33.7 g/dL 32-36 [facility] ([facility]) MPV 8.5 fL 7.0-12.3 [facility] ([facility]) % Katerine 75.9 % 41.0-80.0 [facility] ([facility]) %Lym 18.6 % 10.0-45.2 [facility] ([facility]) %Baso 0.4 % 0.0-3.0 [facility] ([facility]) %[place] 4.1 % 2.0-13.0 [facility]) Eosinophils [#/volume] in Blood by Automated count 1.0 % 0.0-8.0 [facility] ([facility]) [place] 0.4 x10E3/uL 0.0-1.0 [facility] Lymp 2.0 x10E3/uL 0.6-3.1 [facility] Neut 8.0 x10E3/uL 2.0-8.1 [facility]) Baso 0.0 x10E3/uL 0.0-0.2 [facility] Eos 0.1 x10E3/uL 0.0-0.6 [facility]) ID Date Data Source [id number] 10/31/2020 12:42:00 PM EDT [facility] Received: 10/25/2020 at 02:53:00 AMD : [facility], [address], [place], [phone], Ilsa Hinojosa M.D.,PhD Received: 10/25/2020 at 02:53:00 QPT : [facility], [address] [place] [address], [address] [place] [address], [phone], Kiko Crisostomo MD Received: 10/25/2020 at 02:53:00 QPT : [facility], [address] [place] [address], [address] [place] [address], [phone], Kiko Crisostomo MD Received: 10/25/2020 at 02:53:00 WAO : [facility], [address] [place] [address], [address] [place] [address], [place], [phone], Shaan Gilbert Name Value Range Interpretation Code [...] ordered.To verify the presence of antinuclear antibody (CHREI)and determine its titer and pattern, the test for ANAperformed by indirect immunofluorescence (IFA) onHEp-2 cells, may be ordered. ID Date Data Source [id number] 10/31/2020 12:42:00 PM EDT [facility] Received: 10/25/2020 at 02:53:00 AMD : [facility], [address], [place], [phone], Ilsa Hinojosa M.D.,PhD Received: 10/25/2020 at 02:53:00 QPT : [facility], [address] [place] [address], [address] [place] [address], [phone], Kiko Crisostomo MD Received: 10/25/2020 at 02:53:00 QPT : [facility], [address] [place] [address], [address] [place] [address], [phone], Kiko Crisostomo MD Received: 10/25/2020 at 02:53:00 WAO : [facility], [address] [place] [address], [address] [place] [address], [place], [phone], Shaan Gilbert Name Value Range Interpretation Code Description Data Randa rce(s) Supporting Document(s) Sjogrens syndrome-A extractable nuclear Ab [Units/volume] in Serum by Immunoassay <1.0 NEG AI <1.0 NEG Normal (applies to non-numeric results) [facility] Sjogrens syndrome-B extractable nuclear Ab [Units/volume] in Serum by Immunoassay <1.0 NEG AI <1.0 NEG Normal (applies to non-numeric results) [facility] ID Date Data Source [id number] 10/31/2020 12:42:00 PM EDT [facility] Received: 10/25/2020 at 02:53:00 AMD : [facility], [address], [place], [place], , Ilsa Hinojosa M.D.,PhD Received: 10/25/2020 at 02:53:00 QPT : [facility], [address], [address] [place] [address], [phone], Kiko Crisostomo MD Received: 10/25/2020 at 02:53:00 QPT : [facility], [address], [address] [place] [address], [phone], Kiko Crisostomo MD Received: 10/25/2020 at 02:53:00 WAO : [facility], [address] [place] [address], [address] [place] [address], [place], [phone], Shaan Gilbert Name Value Range Interpretation Code Description Data Randa rce(s) Supporting Document(s) Angiotensin converting enzyme [Enzymatic activity/volu me] in Serum or Plasma 21 U/L 9-67 Normal (applies to non-numeric results) [facility] ID Date Data Source [id number] 10/31/2020 12:42:00 PM EDT [facility] Received: 10/25/2020 at 02:53:00 AMD : [facility], [address], [place], [place], , Ilsa Hinojosa M.D.,PhD Received: 10/25/2020 at 02:53:00 QPT : [facility], [address], [address] [place] [address], [phone] MD Received: 10/25/2020 at 02:53:00 QPT : [facility], [address], [address] [place], [phone] MD Received: 10/25/2020 at 02:53:00 WAO : [facility], [address] [place] [address], [address] Floor, [place], [phone], Shaan Gilbert Name Value Range Interpretation Code Description Data Randa rce(s) Supporting Document(s) INTERPRETATION Liam morrison NEGATIVEThis test did not detect abnorma l levels of anti-MuSK antibodies. Reference lab test results [facility] Interpreti ve Result Table INTER PRETIVE RESULT: NegativeTEST: anti-MuSKTECHNICAL RESULT: <1:10REFERENCE RANGE: Negative <1:10, Borderline 1:10, Positive >=1:20 Service comment Liam castelan Comments: This result does not exclude a diagnosis of MyastheniaGravis.Recommendations: Health care providers, please contact the [facility] Client Services Department at if you wishto speak with a clinical mobile sales consultant regarding this test result.Other testing available: [...] is variable with an overall incidence of iwzhiffynyaje21:100,000 (1).Anti-MuSK antibodies have been associated with Myasthenia [...] muscles (4). Reference lab test method [facility] Detection of antibodies was performed by Radioimmunoassay (MIROSLAVA)methodology.Limitations of analysis: Reagent effectiveness may affect the signalintensity of the response. Although rare, false positive or falsenegative results may occur. All results should be interpreted in thecontext of clinical findings, relevant history, and other laboratorydata. Service comment 04 [facility] 1. Taina Hart, et al. (2005) ELENA 293: 1 906-14. (PMID: 20780772)2. MARIEL Reyes, et al. (2000) Postgrad Med 107: 211-4, 220-2. (PMID: 74446733)3. Joe S et al. (2014) J Autoimmun 52: 90-100. (PMID: 14658974)4. Dasha Guerrero et al. (2013) Autoimmun Rev 12: 931-5. (PMID: 63812327)This test was developed and its analytical performance characteristicshave been determined by [facility]. It has not been cleared orapproved by the U.S. Food and Drug Administration. This assay has beenvalidated pursuant to the CLIA regulations and is used for clinicalpurposes.Laboratory oversight provided by Shaan Hunt M.D., Ph.D., Ceci becerra, [facility] (CLIA# [id number])Testing performed at:[facility] [address] [place] [address] ID Date Data Source [id number] 10/16/2020 01:11:00 PM EDT [facility] Name Value Range Interpretation Code Description Data Randa rce(s) Supporting Document(s) SARS coronavirus 2 RNA [Presence] in Res piratory specimen by COLBY with probe detection NOT DETECTED [facility] This lab was reported by [facility]. ID Date Data Source [id number] 10/16/2020 02:27:08 PM EDT [facility] Name Value Range Interpretation Code Description Data Randa rce(s) Supporting Document(s) SPECIMEN DESCRIPTION [facility] INFLUENZA A (NEG) [facility] [place] [facility] INFLUENZA B (NEG) [facility] [place] [facility] RSV (NEG) [facility] COMMENT [facility] THE U.S. FDA HAS MADE THIS TEST AVAILABL EUNDER AN EMERGENCY USE AUTHORIZATION(EUA) FOR THE DETECTION AND/OR DIAGNOSISOF THE VIRUS THAT CAUSES COVID-19.PERFORMED AT [address] [facility] [address] COVID19 RESULT (NDET) [facility] THIS ASSAY AMPLIFIES AND DETECTSTHE TARG ET RNA USING REAL-TIME PCR.TESTING PERFORMED ON 37coinsID GENEXPERTNEGATIVE 2019_NCOV RT-PCR RESULTS DONOT PRECLUDE 2019_NCOV INFECTION ANDSHOULD NOT BE USED THE SOLE BASISFOR PATIENT MANAGEMENT DECISIONS. FIRST TEST [facility] SYMPTOMATIC [facility] [place] [facility] DATE OF SYMPT ONSET Lab [facility] HOSPITALIZED [facility] [place] [facility] ICU [facility] [place] [facility] CONGREGATE CARE SET Lab [facility] of [facility] ID Date Data Source [id number] 10/16/2020 09:35:00 AM EDT [facility] DATE OF EXAM: 1CHEST RADIOGRAPH , SINGLE VIEW INDICATION: SOB TECHNIQUE: Semi-upright AP Portable view of the chest. COMPARISON: MRI chest dated 10/14/2020. FINDINGS: The chest wall and soft tissues are normal. There is no evidence of pleural disease. The lungs are clear. The heart and mediastinal contours are unremarkable. IMPRESSION: The lungs are clear. No focal areas of consolidation are seen. Professional interpretation performed at [facility] .End of diagnostic report for accession: [id number] Interpreted: Shelbie Marrero DOTranscribed: 10/16/2020 09:33 AMSigned: 10/16/2020 09:35 AM Shelbie Marrero DO [facility] ACC # [id number] BILL # [id number] Name Value Range Interpretation Code Description Data Randa rce(s) Supporting Document(s) ID Date Data Source [id number] 10/15/2020 11:10:00 AM EDT [facility] DATE OF EXAM: 10/14/2020 MRI CHEST WITH [...] evaluate. L2End of diagnostic report for accession: [id number] Interpreted: Shelbie Marreroranscribed: 10/14/2020 08:45 PMSigned: 10/15/2020 11:10 AM Shelbie Marrero DO [facility] ACC # [id number] BILL # [id number] Name Value Range Interpretation Code Description Data Randa rce(s) Supporting Document(s) ID Date Data Source [id number] 10/12/2020 04:56:00 PM EDT [facility] DATE OF EXAM: 10/12/2020XAM: Thyroid U ltrasound [...] a dominant nodule. Professional interpretation performed at [facility] .End of diagnostic report for accession: [id number] Interpreted: Jeremy Aquino MDTranscribed: 10/12/2020 04:55 PMSigned: 10/12/2020 04:56 PM Jeremy Aquino MD [facility] # [id number] BILL # [id number] Name Value Range Interpretation Code Description Data Randa rce(s) Supporting Document(s) ID Date Data Source [id number] 10/17/2020 07:44:05 PM EDT [facility] Name Value Range Interpretation Code Description Data Randa rce(s) Supporting Document(s) ACHR BLOCK AB 6 % [facility] Reference range: 0 to 26 Repeated and [...] developed and its performance characteristics determined by [facility]. It has not been cleared or approved by the US Food and Drug Administration. This test was performed in a CLIA certified laboratory and is intended for clinical purposes. Performed By: [facility] [address] [place] [address] Account Receivable Associate: Marisol Valadez MD ID Date Data Source [id number] 10/14/2020 05:28:22 PM EDT [facility] Name Value Range Interpretation Code Description Data Randa rce(s) Supporting Document(s) ACHR REC BIND AB 0.1 nmol/L [facility] Reference range: 0.0 to 0.4 INTERPRETIVE INFORMATION: [...] developed and its performance characteristics determined by [facility]. It has not been cleared or approved by the US Food and Drug Administration. This test was performed in a CLIA certified laboratory and is intended for clinical purposes. Performed By: [facility] [address] [place] [address] Account Receivable Associate: Marisol Valadez MD ID Date Data Source [id number] 10/12/2020 06:42:01 AM EDT [facility] [place] [facility] Name Value Range Interpretation Code Description Data Randa rce(s) Supporting Document(s) SODIUM 142 mmol/L (136-145) [facility] [place] [facility] POTASSIUM 4.2 mmol/L (3.6-5.2) [facility] CHLORIDE 105 mmol/L (100-108) [facility] [place] [facility] CO2 27 mmol/L (22-31) [facility] ANION GAP 10 mmol/L (7-16) [facility] UREA NITROGEN 6 mg/dL (7-24) L [facility] CREATININE 0.68 mg/dL (0.60-1.00) [facility] BUN/CREAT RATIO 8.8 RATIO (10.0-20.0) L [facility] GLUCOSE 73 mg/dL (70-99) [facility] CALCIUM 8.8 mg/dL (8.4-10.2) [facility] TOTAL PROTEIN 6.6 g/dL (6.4-8.2) [facility] ALBUMIN 3.4 g/dL (3.5-4.6) L [facility] GLOBULIN 3.2 g/dL (2.7-4.3) [facility] ALB/GLOB RATIO 1.1 RATIO [facility] [place] [facility] ALKALINE PHOSPHATASE 67 U/L (45-117) [facility] BILIRUBIN,TOTAL 1.2 mg/dL (0.0-1.0) H [facility] [place] [facility] PLEASE NOTE:Total bilirubin results may be falselyelevated in patients taking Eltrombopag. AST (SGOT) 10 U/L (11-39) L [facility] [place] [facility] ALT (SGPT) 17 U/L (12-78) [facility] [place] [facility] GFR >60 ml/min/1.73m2 (>59) [facility] [place] [facility] GFR ( AMER) >60 ml/min/1.73m2 (>59) [facility] [place] [facility] GFR INTERPRETATION [facility] [place] --NORMAL KIDNEY FUNCTION OR MILD DISEASE - GFR >OR= 60CHRONIC KIDNEY DISEASE - GFR 15 - 59RENAL FAILURE - GFR <15 Est. GFR calculation based on the MDRDstudy equation, which assumes a steadystate for creatinine. Est. GFR should notbe used for medication dosing. ID Date Data Source [id number] 10/12/2020 06:42:01 AM EDT [facility] [place] [facility] Name Value Range Interpretation Code Description Data Randa rce(s) Supporting Document(s) FREE THYROXINE @ 1.10 ng/dL (0.76-1.46) [facility] [place] PERFORMED AT [address] [place] [address] ID Date Data Source [id number] 10/12/2020 06:42:01 AM EDT [facility] [place] [facility] Name Value Range Interpretation Code Description Data Randa rce(s) Supporting Document(s) TSH,ULTRASENSITIVE @ 0.931 mIU/L (0.360-4.170) [facility] [place] [facility] PERFORMED AT [address] [place], [place] [id number] ID Date Data Source [id number] 10/12/2020 06:42:01 AM EDT [facility] Name Value Range Interpretation Code Description Data Randa rce(s) Supporting Document(s) MAGNESIUM 2.1 mg/dL (1.7-2.4) [facility] [place] [facility] ID Date Data Source [id number] 10/12/2020 06:07:57 AM EDT [facility] Name Value Range Interpretation Code Description Data Randa rce(s) Supporting Document(s) WBC 8.7 10*3/uL (4.1-11.0) [facility] [place] [facility] [place] RBC 4.16 10*6/uL (4.00-5.40) [facility] [place] [facility] HGB 12.1 g/dL (12.0-16.0) [facility] [place] [facility] HCT 36.8 % (36.0-47.0) [facility] [place] [facility] MCV 88.5 fL (80.0-95.0) [facility] [place] [facility] MCH 29.0 pg (27.0-32.0) [facility] [place] [facility] MCHC 32.8 g/dL (32.0-36.0) [facility] [place] [facility] RDW 13.4 % (10.5-14.5) [facility] [place] [facility] PLT 275 10*3/uL (150-450) [facility] [place] [facility] MPV 9.6 fL (7.1-10.7) [facility] [place] [facility] ID Date Data Source [id number] 10/11/2020 10:30:00 AM EDT [facility] 1 OrderSheet [facility] Emergency Department [address] [place] [address] Phone #: ext- [phone] 10/11/2020 10:27 Patient: AUGIE KAYE Sex: F : 1990 Age: 30yWEIGHT:117.9 kg (S) HEIGHT:67 inches (S) BMI:40.7ALLERGIES: No Known Drug AllergyCHIEF COMPLAINT: weaknessDIAGNOSIS: AstheniaLAB ORDERSOrder Description Priority Entered Acknowledged InitialedCBC w Diff STAT 11:21 10/11/2020 11:34 Miles Peguero RN P.A.-C;CMP STAT 11:21 10/11/2020 11:34 Miles Peguero RN P.A.-C;Lipase STAT 11:10/11/2020 11:34 Miles Peguero RN P.A.-C;Troponin-T STAT 11:21 10/11/2020 11:35 Miles Peguero RN P.A.-C;Magnesium STAT 11:10/11/2020 11:35 Miles Peguero RN P.A.-C;TSH STAT 11:21 10/11/2020 11:35 Miles Peguero RN P.A.-C;CRP STAT 11:10/11/2020 11:35 Miles Peguero RN P.A.-C;Sed. Rate STAT 11:21 10/11/2020 11:35 Miles Peguero RN P.A.-C;BMP STAT 11:10/11/2020 11:35 Miles Peguero RN P.A.-C;Urinalysis (Clean STAT 11:21 10/11/2020 11:36 Rosy JOHNSONatch) Aylin Covarrubias P.ATiffani-C; [id number] STAT 11:29 10/11/2020 11:35 Miles Matos OrderSheet [facility] Emergency Department [address] [place] [address] Phone #: ext- [phone] 10/11/2020 10:27 Patient: AUGIE KAYE Sex: F : 1990 Age: 30y Korina Peguero RN P.A.-C;BNP STAT 12:51 10/11/2020 12:58 Miles Peguero RN P.A.-C;HCG Urine Qual STAT 13:39 10/11/2020 13:58 Korina Sykes R.N. P.A.-C;COVID-19 CAH (Not STAT 17:02 10/11/2020 17:07 TerrySymptomatic as Korina Peguero RNDefined by [facility]) P.A.-C;([id number]) (NotFirst Test) (NotHospitalized) (Not) (NotResident inCongregate CareSetting) (NotEmployed inHealthcare Setting) NOTES: RAPID: TRANSFERDIAGNOSTIC STUDY ORDERSOrder Description Priority Entered Acknowledged InitialedCT Head W/O Cont STAT 14:06 10/11/2020 14:17 Miles(Oxygen?(No)) Korina Peguero RN P.A.-C; Reason for Study: weaknessCT CTA CHEST STAT 14:06 10/11/2020 14:17 Miles(NONCOR) W CON Korina Peguero RNINC PP P.A.- C;(Oxygen?(No))(IV?(Yes)) Reason for Study: weakness and elevated d-dimerMEDICATION/IV/DRIP/FLUID ORDERSOrder Description Priority Entered Acknowledged InitialedIV NS : Bolus 500 11:21 10/11/2020 Cancelled: Patient Refusal 11:53 TerrymL, then 100 mL/hr Korina Peguero RN P.A.-C;IV NS : Bolus 500 13:39 10/11/2020 14:17 TerrymL, then 100 mL/hr Korina Peguero RN P.A.-C; 3 OrderSheet [facility] Emergency Department [address] [place] [address] Phone #: ext- [phone] 10/11/2020 10:27 Patient: AUGIE KAYE Sex: F : 1990 Age: 30yGENERAL ORDERSOrder Description Priority Entered Acknowledged InitialedBlood Pressure 11:21 10/11/2020 11:34 TerryMonitor Korina Peguero RN P.A.-C;Outcomes Specialist 11:10/11/2020 11:34 Miles(continuous) Korina Peguero RN P.A.-C;EKG 11:10/11/2020 11:34 Miles Korina Peguero RN P.A.-C;NPO 11:10/11/2020 11:34 Miles Korina Peguero RN P.A.-C;Obtain Old EKG 11:10/11/2020 11:34 Miles Korina Peguero RN P.A.-C;Obtain Old Records 11:10/11/2020 11:34 Miles Korina Peguero RN P.A.-C;Pulse oximeter 11:10/11/2020 11:34 Miles(Continuous) Korina Peguero RN P.A.-C;Saline Lock 11:10/11/2020 11:34 Miles Korina Peguero RN P.A.-C;Vitals 11:10/11/2020 11:34 Miles Korina Peguero RN P.A.-C;[Electronically signed by Elsie Fregoso R.N. (18:48 )][Electronically signed by Korina Rodriguez P.A.-C (00:21 10/12/2020)][Electronically locked by Elsie Fregoso R.N. (18:48 10/11/2020)] Name Value Range Interpretation Code Description Data Randa rce(s) Supporting Document(s) ID Date Data Source [id number] 10/11/2020 10:30:00 AM EDT [facility] 1 Medication Reconciliation Report [facility] Emergency Department [address] [place] [address] Phone #: ext- [phone] 10/11/2020 10:27 Patient: AUGIE KAYE Zehra Sex: F : 1990 Age: 30yWeight: 117.9 [...] rce(s) Supporting Document(s) ID Date Data Source [id number] 10/11/2020 10:30:00 AM EDT [place] [address] Medication Administration Record [facility] Emergency Department [address] [place] [address] Phone #: ext- [phone] 10/11/2020 10:27 Patient: AUGIE KAYE Sex: F : 1990 Age: 30yWeight: 117.9 kgHeight/Length: 67 inBMI: 40.7ALLERGIES: No Known Drug Allergy Date/Time Medication Administered Medication OrderedStart IV NS IV NS : Bolus 500 mL, then 53091:17 10/11/2020 Dose: IV Fluids mL/Gui Peguero RN Rate: 100 mL/hr over 5 hour(s)---- Bolus: 500 mL over 30 minute(s)Stop Dispensed: 1000 mL bag18:30 10/11/2020 Site: #1 Elsie Munroe R.N. Name Value Range Interpretation Code Description Data Randa rce(s) Supporting Document(s) ID Date Data Source [id number] 10/11/2020 10:30:00 AM EDT [place] [address] General Instructions [facility] Emergency Department [address] [place] [address] Phone #: ext [phone] 10/11/2020 10:27 Patient: AUGIE KAYE Sex: F : 1990 Age: 30yAcute generalized weakness. (? MYASTHENIA GRAVIS).(Electronically signed by Korina Rodriguez P.A.-C 10/12/2020 00:21) Name Value Range Interpretation Code Description Data Randa rce(s) Supporting Document(s) ID Date Data Source [id number] 10/11/2020 10:30:00 AM EDT [facility] 1 Clinical Report - Nurses [facility] Emergency Department [address] [place] [address] Phone #: ext [phone] 10/11/2020 10:27 Patient: AUGIE KAYE Sex: F : 1990 Age: 30yTRIAGEArrived by EMS. Historian: patient. Unaccompanied.Acuity: LEVEL 3.Chief Complaint: CHEST PAIN.Alert. No acute distress.This started today. ( Pt reprots waking up feeling heaviness/ pressure in arms and legs with int. chestpain).Treatment TELEPHONE COLLECTOR:None. --10:37 10/11/20 Simone Martinez10:36 10/11/20. BP: 144/94. [...] no deficiencies. 2 Clinical Report - Nurses [facility] Emergency Department [address] [place] [address] Phone #: ext- [phone] 10/11/2020 10:27 Patient: AUGIE KAYE Sex: F : 1990 Age: 30y FUNCTIONAL [...] 10/11/20 Miles Peguero RN.NURSING PROGRESS NOTES10:45 10/11/20. ekg monitor, NIBP monitor and pulse oximeter placed on patient; shelter monitor-Lead II; monitor alarms on; monitor strip added [...] RR: 16. O2 saturation: 100%. --11:02 10/11/20 [facility] Tech [facility] Tech1 11:11 10/11/2020 Site #1 started via [...] Miles Peguero RN Warming measures: blanket applied (2265). --11:54 10/11/20 Miles Peguero RN 3 Clinical Report - Nurses [facility] Emergency Department [address] [place] [address] Phone #: ext- [phone] 10/11/2020 10:27 Patient: AUGIE KAYE Sex: F : 1990 Age: 30y12:17 10/11/20. BP: 137/80. HR: 67. RR: 17. O2 saturation: 100%. --12:17 10/11/20 [facility] Olor234:40 10/11/20. BP: 137/82. HR: 76. RR: 19. O2 saturation: 100%. --12:40 10/11/[address] [facility] Puue9Spyvxsx patient name and birthdate. Blood samples drawn by tech: montse corado. (0802). --12:59 10/11/20Miles Peguero RN13:41 10/11/20. BP: 148/99. HR: 74. RR: 18. O2 saturation: 100%. --13:42 10/11/20 [facility] Ksuh162:04 10/11/20. BP: 165/123. HR: 64. RR: 13. O2 saturation: 100%. --14:05 10/11/[address] [facility] [address] [facility] Coip556:17 10/11/2020 Started bag #1 1000 mL IV Fluids IV NS; bolus of 500 mL over 30 minute(s) then at 100mL/hr over 5 hour(s) via site #1 via IV pump. Allergies verified and confirmed 5 rights. IV patencyestablished. IV site checked: no pain, redness, or swelling. IV flushed thoroughly pre- and post-medicationadministration. Information reviewed with patient. --14:17 10/11/20 JIMMIE Mauriceatikita transported to NH by wheelchair with mask and director of radiology. ([id number]). --14:31 10/11/20 Elan, RNPatikita returned from CT by wheelchair with mask and director of radiology. ([id number]). --14:47 10/11/20 GARETH Ansari15:05 10/11/20. BP: 140/87. HR: 71. RR: 17. O2 saturation: 98%. --15:05 10/11/20 [facility] Tech,[facility] Tqwv6Iotm light placed in reach. Side rails up x 2. ( 1530 pt resting 45 degrees in bed stating " Last night mypulse ox machine showed when laying down oxygen sat 92 % and pulse in 50 which went back to normalsitting up", P Dasha Rodriguez notified pt stood at side of [...] RR: 17. O2 saturation: 100%. --16:11 10/11/[address] [facility] Aznx803:37 10/11/20. BP: 133/90. HR: 75. RR: 12. O2 saturation: 100%. --16:37 10/11/[address] [facility] Tech1 4 Clinical Report - Nurses [facility] Emergency Department [address] [place] [address] Phone #: ext- [phone] 10/11/2020 10:27 Patient: AUGIE KAYE Sex: F : 1990 Age: 30y 18:13 10/11/20. BP: 152/116. HR: 74. RR: 11. O2 saturation: 99%. --18:14 10/11/20 Alex Campos 18:28 10/11/20. BP: 142/74. MAP: 96. HR: 70. RR: 17. O2 saturation: 98% on room air. Temp: 98.7 F (oral). --18:28 10/11/20 JuanSimone woods 18:30 10/11/2020 IV Fluids IV NS via IV site #1 Discontinued: infused upon transfer. Total amount infused: 1000 mL. --18:48 10/11/20 Elsie Fregoso R.N.DISPOSITION / DISCHARGE 18:30 10/11/20. Transferred to [facility]. Visit overview, summary of care (CCDA), [...] rce(s) Supporting Document(s) ID Date Data Source [id number] 10/11/2020 10:30:00 AM EDT [facility] 1 Clinical Report - Physicians/Mid Levels [facility] Emergency Department [address] [place] [address] Phone #: ext- [phone] 10/11/2020 10:27 Patient: [...] weakness upon waking today. Does see a title abstractor. Called them and was unable to be seen. Went to the [facility] and they transferred pt to the ER [...] Edema. Gastroenteritis. 2 Clinical Report - Physicians/Mid Levels [facility] Emergency Department [address] [place] [address] Phone #: [phone] ext- [phone] 10/11/2020 10:27 Patient: AUGIE KAYE [facility]#: [id number] Sex: F : 1990 Age: 30y Gastroesophageal Reflux Disease. Heart Murmur. Additional Surgeries: Endoscopy. None. Medications: Omeprazole Oral 20 mg, daily. Allergies: No Known Drug Allergy.SOCIAL HISTORYNever smoker. No alcohol use or drug use.ADDITIONAL NOTESThe nursing notes have been reviewed.PHYSICAL EXAMVital Signs: 10/11/2020 10:36 BP: 144/94. MAP: 110. HR: 70. RR: 20. O2 saturation: 99% on room air.Temp: 98 F. Pain level now: 10. Have been reviewed. Oxygen saturation normal.Appearance: Alert. [...] 3 Clinical Report - P hysicians/Mid Levels [facility] Emergency Department [address] [place] [address] Phone #: ext- [phone] 10/11/2020 10:27 Patient: AUGIE KAYE Sex: F [...] Tests:Beta-HCG, Qual Urine: (AME: 10/11/2020 11:30) ( MsgRcvd 10/11/2020 13:45) Final results Test Result Flag Units (Reference) HCG URINE QUAL NEGATIVE (NORMAL: NEGAT HCG URINE QL REENTER NEGATIVE (NORMAL: NEGAT { KIT LOT # [id number] ){ KIT EXP DATE02/15/22 ){ PROCEDURAL CONTROL VALID)BNP: (AME: 10/11/2020 11:10) ( MsgRcvd 10/11/2020 13:43) Final results Test Result Flag Units (Reference) BNP 42 PG/ML (0 - 125)D-Dimer: (AME: 10/11/2020 12:59) ( MsgRcvd 10/11/2020 13:29) Final results Test Result Flag Units (Reference) D-DIMER QUANT 0.89 H ug/mL (0.27 - 0.50)CBC w Diff: (AME: 10/11/2020 11:10) ( MsgRcvd 10/11/2020 11:31) Final results Test Result Flag [...] 0.10) 4 Clinical Report - Physicians/Mid Levels [facility] Emergency Department [address] [place] [address] Phone #: ext- [phone] 10/11/2020 10:27 Patient: [...] Male GFR Interprentation 20-49 yrs >60 mL/min Cbifoa95-47 yrs >56 mL/min Normal 60-69 yrs >49 mL/min Normal 70-79yrs>42 mL/min Normal 80 and above >35 mL/min Normal Female GFRInterpretation 20-39 yrs >60 mL/min Normal 40-49 yrs >58 mL/minNormal 50-59 yrs >51 mL/min Normal 60-69 yrs >45 mL/min Zucprn20-64 yrs >39 mL/min Normal 80 and above >32 mL/min NormalLipase: (AME: 10/11/2020 11:10) ( [facility] 12[facility]) Final results Test Result Flag Units (Reference) LIPASE 18 U/L (13 - 60)Troponin-T: (AME: 10/11/2020 11:10) ( [facility] 10/11/2020 11:47) Final results Test Result Flag Units (Reference) TROPONIN T <0.01 NG/ML (0.00 - 0.10) TROPONIN T0.1 ng/ml Recommended as the clinical threshold value forTroponin T.Magnesium: (AME: 10/11/2020 11:10) ( [facility] 10/11/[facility] 12:01) Final results Test Result Flag Units (Reference) MAGNESIUM 1.8 MG/DL (1.7 - 2.2)TSH: (AME: 10/11/2020 11:10) ( [facility] 10/11/2020 12:12) Final results Test Result Flag Units (Reference) TSH 0.55 uIU/mL (0.47 - 5.01)CRP: (AME: 10/11/2020 11:10) ( [facility] 10/11/2020 12:02) Final results 5 Clinical Report - Physicians/Mid Levels [facility] Emergency Department [address] [place] [address] Phone #: ext- [phone] 10/11/2020 10:27 Patient: [...] assessment. Sed. Rate: (AME: 10/11/2020 11:10) ( [facility] 10/11/2020 11:52) Final results Test Result Flag Units (Reference) SED RATE 44 H mm/hr (0 - 20) SED RATE REENTER 44 BMP: (AME: 10/11/2020 11:21) ( [facility] 10/11/2020 11:23) Canceled Urinalysis: (AME: 10/11/2020 11:30) ( [facility] 10/11/2020 11:52) Final results Test Result Flag [...] an appt with neurolgoy for eval. PE kaylin NV i ntact b/l UE. ? decreaed DRT b/l LE. EOMI; PERRLA. No cough. Will order labs and imaging for further eval. PEnding result. REviewed results. Radiologist calls to discuss. Indicates ? MG. This would make sense as pt had c/o 6 Clinical Report - Physicians/Mid Levels [facility] Emergency Department [address] [place] [address] Phone #: [phone] ext- [phone] 10/11/2020 10:27 Patient: AUGIE KAYE Sex: F : 1990 Age: 30y worsening weakness, decreased O2 upon laying, and indicates she ntoed a eye droop yesterday. Attempted to ambulate pt and she is able to stand, but noted increased weakness to stand and abnormal gait. Pt has a 16:53 10/11/20. 1554 Called [facility] and no beds. 1607 Called [facility] and [...] to transfer explained to patient. Transferred to [facility]. UTI (catheter associated) was not present prior to transfer. Pressure ulcer was not present prior to transfer. Vascular infection (catheter associated) was not present prior to transfer.CLINICAL IMPRESSION Acute generalized weakness. (? MYASTHENIA GRAVIS).(Electronically signed by Korina Rodriguez P.A.-C 10/12/2020 00:21) Name Value Range Interpretation Code Description Data Randa rce(s) Supporting Document(s) ID Date Data Source [id number] 10/11/2020 08:56:00 [place] [address] RESPIRATORY CARE REPORT ==== ---------NAME------- NUMBER SEX AGE ADMIT DISC. XRAY# F/C DENISE GHOSH N [id number] F 30 10/11/20 10/11/[id number] SB4 E/R DATE OF : 1990 M/R# [id number] PH#: [phone] TR-07 LOCATION: EMERGENCY DEPT [facility] [address] COMPLE TE:10/11/20 13:56 ED 95[address] PHYSICIAN: DARINEL RODRIGUEZ CH Name Value Range Interpretation Code Description Data Randa rce(s) Supporting Document(s) ID Date Data Source [id number] 10/11/2020 05:10:[address] [facility] Name Value Range Interpretation Code Description Data Randa rce(s) Supporting Document(s) COVID19 Case rprt NOT DETECTED [facility] This lab was ordered by [facility] AMANDA MORGAN and reported by [facility]. ID Date Data Source [id number] 10/11/2020 06:13:00 PM EDT [facility] NOT DETECTEDNOT DETECTED{ PROC EDURAL CONTROL [...] rce(s) Supporting Document(s) ID Date Data Source [id number] 10/11/2020 04:47:00 [place] [address] PHONE: [phone] FAX: [phone] Name .................. : MIKKI Shahid Acct Number.................. : [id number] ROOM. ................. : TR-07 Number ................... : [id number] Stay type ............. : E/R Discharge Date......... ... : Admit Date ......... : 09/17 08/06 Admit Phys .................... : DARINEL Date of ....... : 1990 Family Phys ................... : UNKNOWN Phone .................. : [phone] Age ................................ : 30 Film# .................. .:[id number] Sex ................................. : F Unsigned transcriptions are preliminary reports and do not represent a medical or legal document CT CTA CHEST NON-CORONARY Cindy Sherman [address] COMPLETE:10/11/20 14:06 Reason(s): weakness and elevated d-dimer [...] No pulmonary embolism. Page 1 of 2 [facility] [address] [place] [address] PHONE: [phone] FAX: [phone] Name .................. : IMKKI Shahid Acct Number.................. : [id number] ROOM. ................. : TR-07 MR Number ................... : [id number] Stay type ............. : E/R Discharge Date......... ... : Admit Date ......... : 10/11/20 Admit Phys .................... : CHANLIECCO Date of ....... : 1990 Family Phys ................... : UNKNOWN Phone .................. : [phone] Age ................................ : 30 Film# .................. .:[id number] Sex ................................. : F Unsigned transcriptions are preliminary reports and do not represent a medical or legal document CT CTA CHEST NON- CORONARY W C [address]0380 COMPLETE:10/11/20 14:06 Reason(s): weakness and elevated d-dimer 2. Prominent thymus without a focal mass. This suggests hyperplasia. The patient has weakness. Thymic hyperplasia can be associated with myasthenia gravis. These findings were discussed with Korina PATINO in the emergency Department at 3:15 PM Electronically Reviewed and Signed By Dami Mcrae MD , 10/11/20 16:47, JWS Transcribe Initials: BRANDON , Transcribe Date: 10/11/20 15:37, Dictation Date: Copy for: 010 EMERGENCY SRV Copy for: RODDY HUI via fax Copy for: EMERGENCY DEPT via modem Copy for: 710 MED REC Page 2 of 2 Name Value Range Interpretation Code Description Data Randa rce(s) Supporting Document(s) ID Date Data Source [id number] 10/11/2020 03:53:00 PM EDT [facility] [address] [place] [address] PHONE: [phone] FAX: [phone] Name .................. : MIKKI Shahid Acct Number.................. : [id number] [facility]. ................. [facility] Number ................... : [id number] Stay type ............. : E/R Discharge Date......... ... : Admit Date ......... : 09/17 08/06 Admit Phys .................... : DARINEL Date of ....... : 1990 Family Phys ................... : UNKNOWN Phone .................. : [phone] Age ................................ : 30 Film# .................. .:[id number] Sex ................................. : F Unsigned transcriptions are preliminary reports and do not represent a medical or legal document CT HEAD W/O CONTRAST 24577 COMPLETE:10/11/20 14:06 Reason(s): weakness CT BRAIN WITHOUT [...] HUI via fax Page 1 of 2 [place] [address] PHONE: [phone] FAX: [phone] Name .................. : KAYE AUGIE Shahid Acct Number.................. : [id number] ROOM. ................. : TR-07 MR Number ................... : [id number] Stay type ............. : E/R Discharge Date......... ... : Admit Date ......... : 10/11/20 Admit Phys .................... : DARINEL Date of ....... : 1990 Family Phys ................... : UNKNOWN Phone .................. : [phone] Age ................................ : 30 Film# .................. .:[id number] Sex ................................. : F Unsigned transcriptions are preliminary reports and do not represent a medical or legal document CT HEAD W/O CONTRAST 81377 COM PLETE:10/11/20 14:06 Reason(s): weakness Copy for: EMERGENCY DEPT via modem Copy for: 710 MED REC Page 2 of 2 Name Value Range Interpretation Code Description Data Randa rce(s) Supporting Document(s) ID Date Data Source [id number] 10/11/2020 04:16:00 PM EDT [facility]) Name Value Range Interpretation Code Description Data Randa rce(s) Supporting Document(s) Troponin Laboratory test result [facility] ([facility]) Thyroid Stimulating Hormone 0.55 ME [facility] ([facility]) Magnesium Level 1.6 [facility] ([facility]) ID Date Data Source [id number] 10/11/2020 04:16:00 PM EDT [facility] ([facility]) Name Value Range Interpretation Code Description Data Randa rce(s) Supporting Document(s) Alanine aminotransferase [Enzymatic activity/volume] in Serum or Pl asma 10 [facility] ([facility]) Albumin [Mass/volume] in Serum or Plasma 4.5 [facility] ([facility]) Calcium [Mass/volume] in Serum or Plasma 9.9 [facility] ([facility]) Carbon dioxide, total [Moles/volume] in Serum or Plasma 25 [facility] ([facility]) Chloride [Moles/volume] in Serum or Plasma 105 [facility] ([facility]) Potassium [Moles/volume] in Serum or Plasma 4.0 [facility] ([facility]) Alkaline phosphatase [Enzymatic activity/volume] in Serum or Plasma 7 2 [facility] ([facility]) Sodium 140 [facility] Protein [Mass/volume] in Serum or Plasma 7.4 [facility] ([facility]) Aspartate aminotransferase [Enzymatic activity/volume] in Serum or Plasma 14 [facility] ([facility]) Urea nitrogen [Mass/volume] in Serum or Plasma 10 [facility] ([facility]) Glucose 87 70-100 [facility] ([facility]) Creatinine For GFR 0.6 [facility] ID Date Data Source [id number] 10/11/2020 04:16:00 PM EDT [facility] Name Value Range Interpretation Code Description Data Randa rce(s) Supporting Document(s) White Blood Count 9.8 4.3-10.9 [facility] [place] [facility] Platelets 335 130-400 [facility] ([facility]) Red Blood Count 4.26 4.70-6.20 [facility] Hemoglobin 12.6 13.0-17.0 [facility] ([facility]) Hematocrit 37.4 39.0-50.0 [facility] ([facility]) ID Date Data Source [id number] 10/11/2020 01:29:00 PM EDT [facility] Name Value Range Interpretation Code Description Data Randa rce(s) Supporting Document(s) Fibrin D-dimer FEU [Mass/volume] in Platelet poor plasma 0.89 ug /mL 0.27 - 0.50 H [facility] ID Date Data Source [id number] 10/11/2020 11:51:00 AM EDT [facility] Name Value Range Interpretation Code Description Data Randa rce(s) Supporting Document(s) [facility] R [facility] COLOR yellow NORMAL: Yellow [facility] CLARITY clear NORMAL: Clear [facility] Specific gravity of Urine by Test strip 1.015 1.001 - 1.030 [facility] pH 8 5 - 9 [facility] Glucose [Mass/volume] in Urine by Test strip NORM NORMAL: Negat reina [facility] Bilirubin.total [Presence] in Urine by Test strip NEG NORMAL: Negative [facility] Ketones [Presence] in Urine by Test strip 15 NORMAL: Negative A [facility] Protein [Mass/volume] in Urine by Test strip NEG NORMAL: Negat reina [facility] Nitrite [Presence] in Urine by Test strip NEG NORMAL: Negative [facility] BLOOD NEG NORMAL: Negative [facility] LEUK EST NEG NORMAL: Negative [facility] Urobilinogen [Mass/volume] in Urine by Test strip NOR less meena n 1.0 mg/dL [facility] MICROSCOPIC Not Indicate [facility] ospital ID Date Data Source [id number] 10/11/2020 01:45:00 PM EDT [facility] Name Value Range Interpretation Code Description Data Randa rce(s) Supporting Document(s) HCG URINE QUAL NEGATIVE NORMAL: NEGATIVE [facility] HCG URINE QL REENTER NEGATIVE NORMAL: NEGATIVE [facility] { KIT LOT # [id number] ){ KIT EXP DATE 02/15/22 ){ PROCEDURAL CONTROL VALID ) ID Date Data Source [id number] 10/11/2020 12:12:00 PM EDT [facility] Name Value Range Interpretation Code Description Data Randa rce(s) Supporting Document(s) Thyrotropin [Units/volume] in Serum or Plasma by Detec tion limit <= 0.05 mIU/L 0.55 uIU/mL 0.47 - 5.01 [facility] ID Date Data Source [id number] 10/11/2020 12:02:00 PM EDT [facility] Name Value Range Interpretation Code Description Data Randa rce(s) Supporting Document(s) C reactive protein [Mass/volume] in Serum or Plasma by High sensitivity method 11.16 MG/L 1.00 - 3.00 H [facility] CDC/S HS-CRP CUT-OFF: RELATIVE RISK: <1.0 mg/L Low 1.0 - 3.0 mg/L Average >3.0 mg/L High Optimally, the average of HS-CRP results repeated two weeks apart should be used for risk assessment. ID Date Data Source [id number] 10/11/2020 12:02:00 PM EDT [facility] Name Value Range Interpretation Code Description Data Randa rce(s) Supporting Document(s) COMPREHENSIVE METABOLIC PANEL [facility] COMPREHENSIVE METABOLIC PANEL Sodium [Moles/volume] in Serum or Plasma 140 mEq/L 134 - 153 [facility] Potassium [Moles/volume] in Serum or Plasma 4.0 mEq/L 3.6 - 5.0 [facility] Chloride [Moles/volume] in Serum or Plasma 105 mEq/L 98 - 107 [facility] Carbon dioxide, total [Moles/volume] in Serum or Plasma 25 MEQ/L 22 - 30 [facility] Glucose [Mass/volume] in Serum or Plasma 87 MG/DL 70 - 99 [facility] BUN 6 MG/DL 7 - 21 L [facility] al Creatinine [Mass/volume] in Serum or Plasma 0.6 MG/DL 0.7 - 1.5 L [facility] BUN/CREAT 10 8 - 27 [facility] Protein [Mass/volume] in Serum or Plasma 7.4 G/DL 6.3 - 8.2 [facility] Albumin [Mass/volume] in Serum or Plasma 4.5 G/DL 3.9 - 5.0 [facility] Globulin [Mass/volume] in Serum by calculation 2.9 GM/DL 2.4 - 3.2 [facility] A/G RATIO 1.6 0.8 - 2.0 [facility] Calcium [Mass/volume] in Serum or Plasma 9.9 MG/DL 8.4 - 10.2 [facility] Bilirubin.total [Mass/volume] in Serum or Plasma 0.8 MG/DL 0.2 - 1.3 [facility] Alkaline phosphatase [Enzymatic activity/volume] in Serum or Plasma 72 U/L 38 - 126 [facility] Aspartate aminotransferase [Enzymatic activity/volume] in Serum or Plasma 14 U/L 5 - 40 [facility] Alanine aminotransferase [Enzymatic activity/volume] in Seru m or Plasma 10 U/L 7 - 56 [facility] Anion gap 3 in Serum or Plasma 10.0 mmol/L 8.0 - 16.0 [facility] AGE 30 yrs [facility] NON-AA GFR >60 mL/min [facility] ital AFR AMER GFR >60 mL/min [facility] Male GFR In terprentation 20-49 [...] >32 mL/min Normal ID Date Data Source [id number] 10/11/2020 12:01:00 PM EDT [facility] Name Value Range Interpretation Code Description Data Randa rce(s) Supporting Document(s) Magnesium [Mass/volume] in Serum or Plasma 1.8 MG/DL 1.7 - 2.2 [facility] ID Date Data Source [id number] 10/11/2020 12:01:00 PM EDT [facility] Value Range Interpretation Code Description Data Randa rce(s) Supporting Document(s) Lipase [Enzymatic activity/volume] in Serum or Plasma 18 U/L 13 - 60 [facility] ID Date Data Source [id number] 10/11/2020 11:52:00 AM EDT [facility] Value Range Interpretation Code Description Data Randa rce(s) Supporting Document(s) Erythrocyte sedimentation rate by Westergren method 44 mm/hr 0 - 20 H [facility] SED RATE REENTER 44 [facility] ID Date Data Source [id number] 10/11/2020 11:47:00 AM EDT [facility] Value Range Interpretation Code Description Data Randa rce(s) Supporting Document(s) TROPONIN T <0.01 NG/ML 0.00 - 0.10 [facility] ospital TROPONIN T0.1 ng/ml Recommended as the c linical threshold value forTroponin T. ID Date Data Source [id number] 10/11/2020 11:31:00 AM EDT [facility] Value Range Interpretation Code Description Data Randa rce(s) Supporting Document(s) CBC W/AUTOMATED DIFF [facility] COMPLETE BLOOD COUNT Leukocytes [#/volume] in Blood by Automated count 9.8 10^3/uL 4.2 - 1 1.0 [facility] Erythrocytes [#/volume] in Blood by Automated count 4.26 10^6/uL 4. 20 - 5.40 [facility] Hemoglobin [Mass/volume] in Blood 12.6 g/dL 12.0 - 16.0 [facility] Hematocrit [Volume Fraction] of Blood by Automated count 37.4 % 3 7.0 - 47.0 [facility] Erythrocyte mean corpuscular volume [Entitic volume] by Auto mated count 87.8 fL 81.0 - 101 [facility] Erythrocyte mean corpuscular hemoglobin [Entitic mass] by Automated count 29.6 pg 27.0 - 34.0 [facility] Erythrocyte mean corpuscular hemoglobin concentration [Mass/volume] by Automated count 33.7 g/dL 31.0 - 36.0 [facility] Erythrocyte distribution width [Ratio] by Automated count 13.0 % 11.5 - 14.5 [facility] Platelets [#/volume] in Blood by Automated count 335 10^3/uL 150 - 45 0 [facility] Platelet mean volume [Entitic volume] in Blood by Automated count 10.8 fL 7.4 - 10.4 H [facility] Neutrophils/100 leukocytes in Blood by Automated count 81.7 % 37. 0 - 80.0 H [facility] Lymphocytes/100 leukocytes in Blood by Manual count 11.6 % 25.0 - 40.0 L [facility] Monocytes/100 leukocytes in Blood by Automated count 5.4 % 3.0 - 8.0 [facility] Eosinophils/100 leukocytes in Blood by Automated count 0.3 % 0.0 - 7.0 [facility] Basophils/100 leukocytes in Blood by Automated count 0.6 % 0.0 - 2.5 [facility] %IG 0.4 % 0.0 - [facility].0 [facility] % 0.0 - 0.0 [facility] al Neutrophils [#/volume] in Blood by Automated count 8.03 10^3/uL 2.00 - 6.90 H [facility] Lymphocytes [#/volume] in Blood by Automated count 1.14 10^3/uL 0.60 - 3.40 [facility] Monocytes [#/volume] in Blood by Automated count 0.53 10^3/uL 0.00 - 0.90 [facility] Eosinophils [#/volume] in Blood by Automated count 0.03 10^3/uL 0.00 - 0.70 [facility] Basophils [#/volume] in Blood by Automated count 0.06 10^3/uL 0.00 - 0.20 [facility] #IG 0.04 10^3/uL 0.00 - 0.10 [facility] ospital #NRBC 0.00 10^3/uL 0.00 - 0.00 [facility]spital MANUAL DIFF NOT INDICATED [facility] RBC MORPH NOT INDICATED [facility] spital ID Date Data Source [id number] 10/11/2020 01:43:00 PM EDT [facility] Name Value Range Interpretation Code Description Data Randa rce(s) Supporting Document(s) BNP 42 PG/ML 0 - 125 [facility] al ID Date Data Source [id number] 10/10/2020 05:44:00 AM EDT [facility] Name Value Range Interpretation Code Description Data Randa rce(s) Supporting Document(s) SARS-CoV-2 (COVID 19) NEGATIVE - SARS-CoV-2 (COVID19) [facility] This lab was ordered by [facility] a nd reported by [facility]. ID Date Data Source [id number] 10/08/2020 02:21:00 PM EDT [facility] ([facility]) Name Value Range Interpretation Code Description Data Randa rce(s) Supporting Document(s) Thyrotropin [Units/volume] in Serum or Plasma 0.904 uIU/ML 0.358-3.74 0 [facility] ([facility]) pending Lyme Titer ID Date Data Source [id number] 10/08/2020 02:21:00 PM EDT [facility] ([facility]) Name Value Range Interpretation Code Description Data Randa rce(s) Supporting Document(s) Lyme Disease IgG/IgM Antibodie Laboratory test result 0.00-0.90 [facility] ([facility]) pending Lyme Titer Lyme Disease IgM Ab Quantitati Laboratory test result 0.00-0.79 [facility] pending Lyme Titer ID Date Data Source [id number] 10/08/2020 02:21:00 PM EDT [facility] ([facility]) Name Value Range Interpretation Code Description Data Randa rce(s) Supporting Document(s) C reactive protein [Mass/volume] in Serum or Plasma by High sensitivity method 1.49 mg/dL 0.00-0.30 [facility] ([facility]) pending Lyme Titer Erythrocyte sedimentation rate by 2H Westergren method 35 mm/hr 0-2 0 [facility] ([facility]) pending Lyme Titer ID Date Data Source [id number] 10/08/2020 02:21:00 PM EDT [facility] ([facility]) Name Value Range Interpretation Code Description Data Randa rce(s) Supporting Document(s) Glucose, Fasting 79 mg/dL 70-100 [facility] ([facility]) pending Lyme Titer Blood Urea Nitrogen 8 mg/dL 7-18 [facility] ([facility]) pending Lyme Titer Creatinine For GFR 0.76 mg/dL 0.55-1.30 [facility] ([facility]) pending Lyme Titer Sodium Level 138 meq/L 136-145 [facility] ([facility]) pending Lyme Titer Glomerular Filtration Rate Laboratory test result [facility] ([facility]) pending Lyme Titer Potassium Serum 4.1 meq/L 3.5-5.1 [facility] ([facility]) pending Lyme Titer Chloride Level 104 meq/L 98-107 [facility] ([facility]) pending Lyme Titer Anion Gap 7 meq/L 8-16 [facility] ([facility]) pending Lyme Titer Carbon Dioxide Level 27 meq/L 21-32 [facility] ([facility]) pending Lyme Titer Calcium Level 9.4 mg/dL 8.5-10.1 [facility] ([facility]) pending Lyme Titer Ast/Sgot 14 U/L 7-37 [facility] ([facility]) pending Lyme Titer Alt/SGPT 20 U/L 12-78 [facility] ([facility]) pending Lyme Titer Alkaline Phosphatase 76 U/L 45-117 [facility] ([facility]) pending Lyme Titer Bilirubin,Total 0.7 mg/dL 0.2-1.0 [facility] ([facility]) pending Lyme Titer Total Protein 7.7 GM/DL 6.4-8.2 [facility] ([facility]) pending Lyme Titer Albumin/Globulin Ratio 1.0 1.2-2.2 [facility] ([facility]) pending Lyme Titer Albumin 3.8 GM/DL 3.2-5.2 [facility] ([facility]) pending Lyme Titer ID Date Data Source [id number] 10/08/2020 02:21:00 PM EDT [facility] ([facility]) Name Value Range Interpretation Code Description Data Randa rce(s) Supporting Document(s) Creatine kinase [Enzymatic activity/volume] in Serum or Plasma 74 U /L 26-192 [facility] ([facility]) pending Lyme Titer ID Date Data Source [id number] 10/08/2020 02:21:00 PM EDT [facility] ([facility]) Name Value Range Interpretation Code Description Data Randa rce(s) Supporting Document(s) White Blood Count 11.6 10 4.0-10.0 [facility] ([facility]) pending Lyme Titer Red Blood Count 4.47 10 4.00-5.40 [facility] ([facility]) pending Lyme Titer Hemoglobin 12.8 g/dL 12.0-15.5 [facility] ([facility]) pending Lyme Titer Hematocrit 39.4 % 36.0-47.0 [facility] ([facility]) pending Lyme Titer Mean Corpuscular Volume 88.1 fl 80.0-96.0 M [facility] ([facility]) pending Lyme Titer Mean Corpuscular Hemoglobin 28.6 pg 27.0-33.0 [facility] ([facility]) pending Lyme Titer Mean Corpuscular HGB Conc 32.5 g/dL 32.0-36.5 [facility] ([facility]) pending Lyme Titer Red Cell Distribution Width 12.9 % 11.5-14.5 [facility] ([facility]) pending Lyme Titer Platelet Count, Automated 344 10 150-450 [facility] ([facility]) pending Lyme Titer Neutrophils % 77.8 % 36.0-66.0 [facility] ([facility]) pending Lyme Titer Lymph % 14.3 % 24.0-44.0 [facility] ([facility]) pending Lyme Titer Baso % 0.6 % 0.0-1.0 [facility] ([facility]) pending Lyme Titer Eos % 0.6 % 0.0-3.0 [facility] ([facility]) pending Lyme Titer [place] % 6.2 % 2.0-8.0 [facility] ([facility]) pending Lyme Titer Nucleated Red Blood Cell % 0.0 % 0-0 [facility] ([facility]) pending Lyme Titer Immature Granulocyte % 0.5 % 0-3.0 [facility] ([facility]) pending Lyme Titer Neutrophils # 9.1 10 1.5-8.5 [facility] ([facility]) pending Lyme Titer Lymph # 1.7 10 1.5-5.0 [facility] ([facility]) pending Lyme Titer [place] # 0.7 10 0.0-0.8 [facility] ([facility]) pending Lyme Titer Eos # 0.1 10 0.0-0.5 [facility] ([facility]) pending Lyme Titer Baso # 0.1 10 0.0-0.2 [facility] ([facility]) pending Lyme Titer ID Date Data Source [id number] 10/08/2020 12:00:00 AM EDT [facility] Name Value Range Interpretation Code Description Data Randa rce(s) Supporting Document(s) SARS-CoV2 Rapid Antigen Negative [facility] This lab was reported by [facility]. ID Date Data Source [id number] 03/15/2020 12:00:00 AM EST [facility] Name Value Range Interpretation Code Description Data Randa rce(s) Supporting Document(s) SARS coronavirus 2 Ag Negative [facility] This lab was ordered by [facility] and reported by [facility]. ID Date Data Source [id number] 12/07/2019 12:00:00 AM EDT [facility] Name Value Range Interpretation Code Description Data Randa rce(s) Supporting Document(s) SARS coronavirus 2 Ag [facility] This lab was ordered by [facility] and reported by [facility]. ID Date Data Source [id number] 09/27/2020 01:19:00 [place] [address] RESPIRATORY CARE REPORT ==== ---------NAME------- NUMBER SEX AGE ADMIT DISC. XRAY# F/C DENISE AUGIE Shahid [id number] F 30 09/26/20 09/26/[id number] SB4 E/R DATE OF : 1990 M/R# [id number] #: [id number] TR-02 LOCATION: EMERGENCY DEPT [facility] [address] COMPLE TE:09/26/20 16:27 [place] [address] PHYSICIAN: GABRIEL RODRIGUEZ CH Name Value Range Interpretation Code Description Data Randa rce(s) Supporting Document(s) ID Date Data Source [id number] 09/26/2020 02:15:00 PM EDT [facility] 1 OrderSheet [facility] Emergency Department [address] [place] [address] Phone #: ext- [phone] 09/26/2020 14:12 Patient: [...] 14:52 Korina Mayfield R.N. P.A.-C; 2 OrderSheet [facility] Emergency Department [address] [place] [address] Phone #: ext- [phone] 09/26/2020 14:12 Patient: AUGIE KAYE Sex: F : 1990 Age: 30yTroponin-T STAT [...] 15:35 09/26/2020 Ack'd: 15:45 16:19 Chaparro,(Oxygen?(No)) Eleanor Johnson R.N. P.A.-C; R.N. Reason for Study: dizzinessCT CTA CHEST STAT 15:35 09/26/2020 Ack'd: 15:45 16:19 Chaparro,(NONCOR) W CON Eleanor Johnson.N.INC PP P.A.-C; R.N.(Oxygen?(No))(IV?(Yes)) Reason for Study: dizziness with elevated d-dimerMEDICATION/IV/DRIP/FLUID ORDERSOrder Description Priority Entered Acknowledged InitialedIV NS : Bolus 500 14:51 09/26/2020 Ack'd: 14:52 Eleanor Mayfield R.N.mL, then 100 mL/hr Korina Rodriguez Cancelled: Patient Refusal 17:58 Jadon Mayfield; Eleanor CorreaGENERAL ORDERSOrder Description Priority Entered Acknowledged InitialedBlood Pressure 14:51 09/26/2020 14:51 Chaparro,Monitor Korina Vargas.Zehra. P.A.-C;Outcomes Specialist 14:51 09/26/2020 14:51 Chaparro(continuous) Korina Vargas.N. P.A.-C;EKG 14:51 09/26/2020 Ack'd: 14:52 15:35 Korina Poe Amber Lisa RN P.A.-C; R.N.NPO 14:51 09/26/2020 14:51 Chaparro, 3 OrderSheet [facility] Emergency Department [address] [place] [address] Phone #: ext- [phone] 09/26/2020 14:12 ----- Patient: AUGIE KAYE Sex: F : 1990 Age: 30y Korina MulliganN. P.A.-C;Obtain Old EKG 14:51 09/26/2020 14:51 Korina Mayfield.N. P.A.-C;Obtain Old Records 14:51 09/26/2020 14:51 Korina Mayfield.N. P.A.-C;Pulse oximeter 14:51 09/26/2020 14:51 Chaparro(Continuous) Korina Vargas.N. P.A.-C;Saline Lock 14:51 09/26/2020 Ack'd: 14:52 15:50 Mayfield, Eleanor Johnson R.N., P.A.-C; RMaryVitals 14:51 09/26/2020 14:51 Korina Mayfield R.N., P.A.-C;[Electronically signed by Eleanor Mayfield R.N. (19:13 09/26/2020)][Electronically signed by Korina Rodriguez P.A.-C (20:22 09/26/2020)][Electronically locked by Eleanor Mayfield R.N. (19:13 09/26/2020)] Name Value Range Interpretation Code Description Data Randa rce(s) Supporting Document(s) ID Date Data Source [id number] 09/26/2020 02:15:00 PM EDT [facility] 1 Medication Reconciliation Report [facility] Emergency Department [address] [place] [address] Phone #: ext- [phone] 09/26/2020 14:12 Patient: [...] rce(s) Supporting Document(s) ID Date Data Source [id number] 09/26/2020 02:15:00 PM EDT [facility] 1 Medication Administration Record [facility] Emergency Department [address] [place] [address] Phone #: ext- [phone] 09/26/2020 14:12 Patient: AUGIE KAYE Sex: F : 1990 Age: 30yWeight: 117.9 kgHeight/Length: 67 inBMI: 40.7ALLERGIES: No Known Drug AllergyDate/Time Medication Administered Medication Ordered Name Value Range Interpretation Code Description Data Randa rce(s) Supporting Document(s) ID Date Data Source [id number] 09/26/2020 02:15:00 PM EDT [facility] 1 General Instructions [facility] Emergency Department [address] [place] [address] Phone #: ext- [phone] 09/26/2020 14:12 Patient: AUGIE KAYE Sex: F [...] about: All medicines you take, including prescription, itir-oid-jleslhz, herbs, and supplements Any other symptoms you have Any health problems you are being treated for Any past major health problems you've had, such as a heart attack, balance issues, hearing problems, or blood pressure problems Anything that causes the dizziness to get worse or better 2 General Instructions [facility] Emergency Department [address] [place] [address] Phone #: ext- [phone] 09/26/2020 14:12 Patient: [...] fast or hard (palpitations) 3 General Instructions [facility] Emergency Department [address] [place] [address] Phone #: ext- [phone] 09/26/2020 14:12 Patient: AUGIE KAYE Sex: F : 1990 Age: 30y Passing out or seizure Trouble walking or speaking [id number] [employer] [place] [address]. All rights reserved. This information is not [...] to come into the office at 4 [facility] Emergency Department [address] [place] [address] Phone #: ext- [phone] 09/26/2020 14:12 Patient: [...] buy blood pressure monitors at most pharmacies.The [place] [employer] advises the following guidelines for [...] kidney disease, and stroke.Call 911 5 General Instructions [facility] Emergency Department [address] [place] [address] Phone #: ext- [phone] 09/26/2020 14:12 Patient: AUGIE KAYE Sex: F [...] Dizziness or dizziness with spinning feeling (vertigo) [id number] [employer]. [address] [place] [address]. All rights reserved. 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 Take breaks and walk around every few hours. Talk with your healthcare provider about wearing support stockings to help reduce swelling during the day. Wear compression stockings with your provider's approvalFollow-up careFollow up with your healthcare provider as advised.Call [phone] if any of these occur: Shortness of breath or trouble breathing Chest pain Coughing up blood Fainting or loss of consciousnessWhen to seek medical adviceCall your healthcare provider right away if any of these occur: Increased pain, swelling, warmth, or redness of the leg, ankle, or foot 7 General Instructions [facility] Emergency Department [address] [place] [address] Phone #: ext- [phone] 09/26/2020 14:12 Patient: AUGIE KAYE Sex: F : 1990 Age: 30y Fever of 100.4F (38C) or higher, or as directed by your provider Weakness or dizziness Shaking chills 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 [address] [place] [address]. All rights reserved. This information is not intended as asubstitute for professional medical care. Always follow your healthcare professional's instructions. You have been given the following additional information: Dizziness, Uncertain Cause Hypertension, To Be Confirmed Leg Swelling in a Single Leg(Electronically signed by Korina Rodriguez P.A.-C 09/26/2020 20:22) Name Value Range Interpretation Code Description Data Randa rce(s) Supporting Document(s) ID Date Data Source [id number] 09/26/2020 02:15:00 PM EDT [facility] 1 Clinical Report - Nurses [facility] Emergency Department [address] [place] [address] Phone #: ext- [phone] 09/26/2020 14:12 Patient: [...] --14:20 09/26/20 Eleanor Mayfield R.N.Acuity: LEVEL 3. --19:09/26/20 Eleanor Mayfield R.N.Weight: 117.9 kg stated. Height/Length: 67 inches Per Patient. BMI: 40.7. --14:09/26/20 Eleanor Mayfield R.N.MedicationsPantoprazole Sodium Oral (Tablet Delayed Release 40 mg) 1 tablet, daily. Pepcid Oral (Tablet 20 mg), daily. --14:09/26/20 Eleanor Mayfield R.N.AllergiesNo Known Drug Allergy. --14:09/26/20 Eleanor Mayfield R.N.P ROBLEMS:Concussion.Contusion.Bronchitis.Atypical Chest Pain.Back Pain.Heart Murmur.Myofascial Strain. 2 Clinical Report - Nurses [facility] Emergency Department [address] [place] [address] Phone #: ext- [phone] 09/26/2020 14:12 --- Patient: AUGIE KAYE Sex: F : 1990 Age: 30y Gastroenteritis. [...] assessment completed. No skin integrity risk identified. --14:09/26/20 Eleanor Mayfield R.N.PHYSICAL ASSESSMENTAmbulatory to room.GENERAL / [...] reach. Side 3 Clinical Report - Nurses [facility] Emergency Department [address] [place] [address] Phone #: ext- [phone] 09/26/2020 14:12 ---- [...] and shown to the ED physician.--15:33 09/26/20 [facility] TechAylin ER [id number] entry - 15:30 09/26/20. Monitoring of patient [...] RR: 19. O2 saturation: 98%. --16:58 09/26/[address] [facility] Guee591:00 09/26/20. BP: 147/95. --17:00 09/26/[address] [facility] [id number] entry - 16:40 09/26/20. Monitoring of patient [...] 23. O2 saturation: 99%. --17:59 09/26/[address] [facility] Ecan6Revrcqd gowned. Reassurance given.Rounding: Position: states comfortable. Proximity of possessions / care items: call light within easy reach.Set expectations: advised patient of rounding protocol timing and asked if they needed anything else at thistime. The patient is calm and resting quietly. Patient waiting for lab results. --18:24 09/26/20 Eleanor Mayfield R.N. 4 Clinical Report - Nurses [facility] Emergency Department [address] [place] [address] Phone #: ext- [phone] 09/26/2020 14:12 Patient: AUGIE KAYE Sex: F : 1990 Age: 30y 19:09 09/26/2020 Site #1 removed upon discharge. Catheter intact. Bandage applied. --19:11 09/26/20 Eleanor Mayfield R.N.DISPOSITION / DISCHARGE 19:02 0 09/26/20. BP: 143/86. HR: 78. RR: 16. O2 saturation: 98%. Temp: 98.1 F. Pain level now 0/10. 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 Departure time: late entry - 19:09 09/26/2020. Condition at departure: improved and stable. No learning barriers present. Reviewed warnings. Reviewed referral to a primary care physician for followup. Patient verbalized understanding. Written instructions provided in Argentine. The patient was discharged by the physician. She was discharged home and unaccompanied at time of discharge. She left ambulatory and via private vehicle. Patient driving. --19:12 09/26/20 Eleanor Mayfield R.N.Locked/Released at 09/26/2020 19:13 by Eleanor Mayfield R.N. Name Value Range Interpretation Code Description Data Randa rce(s) Supporting Document(s) ID Date Data Source [id number] 09/26/2020 02:15:00 PM EDT [facility] 1 Clinical Report - Physicians/Mid Levels [facility] Emergency Department [address] [place] [address] Phone #: ext- [phone] 09/26/2020 14:12 Patient: AUGIE KAYE Sex: F [...] daily. 2 Clinical Report - Physicians/Mid Levels [facility] Emergency Department [address] [place] [address] Phone #: ext- [phone] 09/26/2020 14:12 Patient: [...] radiologist. 3 Clinical Report - Physicians/Mid Levels [facility] Emergency Department [address] [place] [address] Phone #: ext- [phone] 09/26/2020 14:12 Patient: AUGIE KAYE Sex: F [...] Room: ED Exam [place] [address] PHONE: [phone] FAX: [phone] Name .................. : MIKKI Shahid Acct Number.................. : [id number] ROOM. ................. : TR- MR Number ................... : [id number] Stay type ............. : E/R Discharge Date......... ... : Admit Date ......... : 09/26/20 Admit Phys .................... : GABRIEL KATIE Date of ....... : 1990 Family Phys ................... : UNKNOWN Phone .................. : [phone] Age ................................ : 30 Film# .................. .:[id number] Sex ................................. : F Unsigned transcriptions are preliminary reports and do not represent a medical or legal document CT HEAD W/O CONTRAST [id number] COMPLETE:09/26/20 16:27 KBO [id number] Reason(s): dizziness CT BRAIN WITHOUT IV CONTRAST [...] effect. 4 Clinical Report - Physicians/Mid Levels [facility] Emergency Department [address] [place] [address] Phone #: ext- [phone] 09/26/2020 14:12 Patient: AUGIE KAYE Sex: F : 1990 Age: 30y Calvarium and skull base are within normal limits. To the extent included sinuses are clear. IMPRESSION: Negative study. Electronically Reviewed and Signed By DCTNAME , SIGNDATE, MALU Transcribe Initials: DZ , Transcribe Date: 09/26/20 18:59, Dictation Date: [...] results 5 Clinical Report - Physicians/Mid Levels [facility] Emergency Department [address] [place] [address] Phone #: ext- [phone] 09/26/2020 14:12 Patient: [...] Male GFR Interprentation 20-49 yrs >60 mL/min Vlyrxo90-40 yrs >56 mL/min Normal 60-69 yrs >49 mL/min Normal 70-79yrs>42 mL/min Normal 80 and above >35 mL/min Normal Female GFRInterpretation 20-39 yrs >60 mL/min Normal 40-49 yrs >58 mL/minNormal 50-59 yrs >51 mL/min Normal 60-69 yrs >45 mL/min Mwonms96-47 yrs >39 mL/min Normal 80 and above >32 mL/min NormalLipase: (AME: 09/26/2020 14:58) ( MsgRcvd 09/26/2020 15:23) Final results Test Result Flag Units (Reference) LIPASE 22 U/L (13 - 60)PT/PTT: (AME: 09/26/2020 14:58) ( MsgRcvd 09/26/2020 15:21) Final results Test Result Flag Units (Reference) PROTIME 12.9 SECONDS (11.0 - 15.5) INR 0.96 (0.93 - 1.23) PTT 41.1 H SECONDS (24.8 - 36.7) \\BLDo\\INR INTERPRETATION\\BLDx\\ Therapeutic range for Coumadin andrelated oral anticoagulants. -International Normalized Ratio (INR): 2.0 - 3.0 for VenousThrombosis, Pulmonary Embolus, Tissue heart valves, Acute DC Atrial Fibrillation, Valvular heart diseaseand recurrent Systemic Embolism. - International Normalized Ratio (INR): 2.5 - 3.5 forMechanical Prosthetic valve.Troponin-T: (AME: 09/26/2020 14:58) ( MsgRcvd 09/26/2020 15:27) Final results Test Result Flag Units (Reference) TROPONIN T <0.01 NG/ML (0.00 - 0.10) TROPONIN T0.1 ng/ml Recommended as the clinical threshold value forTroponin T.Magnesium: (AME: 09/26/2020 14:58) ( MsgRcvd 09/26/2020 15:24) Final results Test Result Flag Units (Reference) MAGNESIUM 1.9 MG/DL (1.7 - 2.2) 6 Clinical Report - Phy sicians/Mid Levels [facility] Emergency Department [address] [place] [address] Phone #: ext- [phone] 09/26/2020 14:12 Patient: AUGIE KAYE Sex: F : 1990 Age: 30yTSH: (AME: 09/26/2020 14:58) ( CogRcvd 09/26/2020 15:34) Final results Test Result Flag [...] NEGATIVE (NORMAL: NEGAT { KIT LOT # [id number] ){ KIT EXP DATE02/15/22 ){ PROCEDURAL CONTROL VALID)US Lower Ext Venous Bilateral: (AME: 09/26/2020 14:51) ( CogRcvd 09/26/2020 18:46) In ProgressUS DOPPLER VENOUS BILAT LEGReason(s): L hamstring pain and R foot swelling with hx of dizzinessTRANSPORTATION: WC IV? O2? Oxygen?(No) Room: ED Exam US [place] [address] PHONE: [phone] FAX: [phone] Name .................. : MIKKI Shahid Acct Number.................. : [id number] ROOM. ................. : TR-02 Number ................ ... : [id number] Stay type ............. : E/R Discharge Date......... ... : Admit Date ......... : 09/26/20 Admit Phys .................... : GABRIEL WILSON Date of ....... : 1990 Family Phys ................... : UNKNOWN Phone .................. : [phone] Age ................................ : 30 Film# .................. .:[id number] Sex ................................. : F 7 Clinical Report - Physicians/Mid Levels [facility] Emergency Department [address] [place] [address] Phone #: [phone]- [phone] 09/26/2020 14:12 Patient: AUGIE KAYE Sex: F : 1990 Age: 30y Unsigned transcriptions are preliminary reports and do not represent a medical or legal document DOPPLER VENOUS BILAT LEG 28764 COMPLETE:09/26/20 15:59 KNB 16165 Reason(s): L hamstring pain and R foot [...] venous thrombosis. Electronically Reviewed and Signed By DCTBELEM SIGNDATE, MALU Transcribe Initials: BRANDON , Transcribe Date: [...] palps. 8 Clinical Report - Physicians/Mid Levels [facility] Emergency Department [address] [place] [address] Phone #: ext- [phone] 09/26/2020 14:12 Patient: AUGIE KAYE Sex: F [...] fluids. 9 Clinical Report - Physicians/Mid Levels [facility] Emergency Department [address] [place] [address] Phone #: ext- [phone] 09/26/2020 14:12 Patient: AUGIE KAYE Sex: F : 1990 Age: 30y (Recommend [...] rce(s) Supporting Document(s) ID Date Data Source [id number] 09/26/2020 07:25:00 [place] [address] PHONE: [phone] FAX: [phone] Name .................. : MIKKI GHOSH Zehra Acct Number.................. : [id number] ROOM. ................. : TR-02 Number ................... : [id number] Stay type ............. : E/R Discharge Date......... ... : Admit Date ......... : 09/16 03/08 Admit Phys .................... : GABRIEL WILSON Date of ....... : 1990 Family Phys ................... : UNKNOWN Phone .................. : [phone] Age ................................ : 30 Film# .................. .:[id number] Sex ................................. : F Unsigned transcriptions are preliminary reports and do not represent a medical or legal document CT CTA CHEST NON-CORONARY Cindy Sherman 30110 COMPLETE:09/26/20 16:27 KBO 86353 Reason(s): dizziness with elevated d-dimer CT CHEST [...] and Signed By Page 1 of 2 [place] [address] PHONE: [phone] FAX: [phone] Name .................. : MIKKI Shahid Acct Number.................. : [id number] ROOM. ................. : TR-02 MR Number ................... : [id number] Stay type ............. : E/R Discharge Date......... ... : Admit Date ......... : 09/26/20 Admit Phys .................... : GABRIEL WILSON Date of ....... : 1990 Family Phys ................... : UNKNOWN Phone .................. : [phone] Age ................................ : 30 Film# ............... ... .:[id number] Sex ................................. : F Unsigned transcriptions are preliminary reports and do not represent a medical or legal document CT CTA CHEST NON-CORONARY W C 95377 COMPLETE:09/26/20 16:27 KBO 34018 Reason(s): dizziness with elevated d-dimer Dami Mcrae MD , 09/26/20 19:25, JWS Transcribe Initials: BRANDON , Transcribe Date: 09/26/20 19:04, Dictation Date: Copy for: RODDY HUI via fax Copy for: EMERGENCY DEPT via modem Copy for: 710 MED REC DISCHARGED Page 2 of 2 Name Value Range Interpretation Code Description Data Randa rce(s) Supporting Document(s) ID Date Data Source [id number] 09/26/2020 07:25:00 [place] [address] PHONE: [phone] FAX: [phone] Name .................. : MIKKI Shahid Acct Number.................. : [id number] ROOM. ................. : TR-02 MR Number ................... : [id number] Stay type ............. : E/R Discharge Date......... ... : Admit Date ......... : 09/26/20 Admit Phys .................... : TURRIN KATIE Date of ....... : 1990 Family Phys ................... : UNKNOWN Phone .................. : [phone] Age ................................ : 30 Film# .................. .:[id number] Sex ................................. : F Unsigned transcriptions are preliminary reports and do not represent a medical or legal document CT HEAD W/O CONTRAST 79612 COMPLETE:09/26/20 16:27 KBO 11345 Reason(s): dizziness CT BRAIN WITHOUT IV CONTRAST [...] via fax Copy for: EMERGENCY DEPT via [place] Page 1 of 2 [facility] [address] [place] [address] [place] [address] PHONE: [phone] FAX: [phone] Name .................. : MIKKI Shahid Acct Number.................. : [id number] ROOM. ................. : TR-02 MR Number ................... : [id number] Stay type ............. : E/R Discharge Date......... ... : Admit Date ......... : 09/26/20 Admit Phys .................... : GABRIEL KATIE Date of ....... : 1990 Family Phys ................... : UNKNOWN Phone .................. : [phone] Age ................................ : 30 Film# .................. .:[id number] Sex ................................. : F Unsigned transcriptions are preliminary reports and do not represent a medical or legal document CT HEAD W/O CONTRAST 60535 COMPLETE:09/26/20 16:27 KBO 76931 Reason(s): dizziness Copy for: 710 MED REC DISCHARGED Page 2 of 2 Name Value Range Interpretation Code Description Data Randa rce(s) Supporting Document(s) ID Date Data Source [id number] 09/26/2020 07:24:00 PM EDT [facility] [address] [place] [address] PHONE: [phone] FAX: [phone] Name .................. : MIKKI Shahid Acct Number.................. : [id number] ROOM. ................. : TR-02 MR Number ................... : [id number] Stay type ............. : E/R Discharge Date......... ... : Admit Date ......... : 0 09/26/20 Admit Phys .................... : GABRIEL KATIE Date of ....... : 1990 Family Phys ................... : UNKNOWN Phone .................. : [phone] Age ................................ : 30 Film# .................. .:[id number] Sex ................................. : F Unsigned transcriptions are preliminary reports and do not represent a medical or legal document DOPPLER VENOUS BILAT LEG 96840 COMPLETE:09/26/20 15:59 KNB 16388 Reason(s): L hamstring pain and R foot [...] MD , 09/26/20 19:24, MALU Transcribe Initials: DZ , Transcribe Date: 09/26/20 18:45, Dictation Date: Copy for: RODDY HUI via fax Copy for: EMERGENCY DEPT via modem Copy for: 710 MED REC DISCHARGED Page 1 of 1 Name Value Range Interpretation Code Description Data Randa rce(s) Supporting Document(s) ID Date Data Source [id number] 09/26/2020 06:57:00 PM EDT [facility] Name Value Range Interpretation Code Description Data Randa rce(s) Supporting Document(s) TROPONIN T <0.01 NG/ML 0.00 - 0.10 [facility] TROPONIN T0.1 ng/ml Recommended as the c linical threshold value forTroponin T. ID Date Data Source [id number] 09/26/2020 03:34:00 PM EDT [facility] Name Value Range Interpretation Code Description Data Randa rce(s) Supporting Document(s) Thyrotropin [Units/volume] in Serum or Plasma by Detec tion limit <= 0.05 mIU/L 0.83 uIU/mL 0.47 - 5.01 [facility] ID Date Data Source [id number] 09/26/2020 03:27:00 PM EDT [facility] Value Range Interpretation Code Description Data Randa rce(s) Supporting Document(s) TROPONIN T <0.01 NG/ML 0.00 - 0.10 [facility] TROPONIN T0.1 ng/ml Recommended as the c linical threshold value forTroponin T. ID Date Data Source [id number] 09/26/2020 03:23:00 PM EDT [facility] Value Range Interpretation Code Description Data Randa rce(s) Supporting Document(s) Magnesium [Mass/volume] in Serum or Plasma 1.9 MG/DL 1.7 - 2.2 [facility] ID Date Data Source [id number] 09/26/2020 03:23:00 PM EDT [facility] Name Value Range Interpretation Code Description Data Randa rce(s) Supporting Document(s) Lipase [Enzymatic activity/volume] in Serum or Plasma 22 U/L 13 - 60 [facility] ID Date Data Source [id number] 09/26/2020 03:23:00 PM EDT [facility] Name Value Range Interpretation Code Description Data Randa rce(s) Supporting Document(s) COMPREHENSIVE METABOLIC PANEL [facility] COMPREHENSIVE METABOLIC PANEL Sodium [Moles/volume] in Serum or Plasma 135 mEq/L 134 - 153 [facility] Potassium [Moles/volume] in Serum or Plasma 3.8 mEq/L 3.6 - 5.0 [facility] Chloride [Moles/volume] in Serum or Plasma 102 mEq/L 98 - 107 [facility] Carbon dioxide, total [Moles/volume] in Serum or Plasma 23 MEQ/L 22 - 30 [facility] Glucose [Mass/volume] in Serum or Plasma 88 MG/DL 70 - 99 [facility] BUN 6 MG/DL 7 - 21 [facility] Creatinine [Mass/volume] in Serum or Plasma 0.6 MG/DL 0.7 - 1.5 L [facility] BUN/CREAT 10 8 - 27 [facility] Protein [Mass/volume] in Serum or Plasma 7.2 G/DL 6.3 - 8.2 [facility] Albumin [Mass/volume] in Serum or Plasma 3.7 G/DL 3.9 - 5.0 L [facility] Globulin [Mass/volume] in Serum by calculation 3.5 GM/DL 2.4 - 3.2 H [facility] A/G RATIO 1.1 0.8 - 2.0 [facility] Calcium [Mass/volume] in Serum or Plasma 9.2 MG/DL 8.4 - 10.2 [facility] Bilirubin.total [Mass/volume] in Serum or Plasma <0.7 MG/DL 0.2 - 1.3 [facility] Alkaline phosphatase [Enzymatic activity/volume] in Serum or Plasma 72 U/L 38 - 126 [facility] Aspartate aminotransferase [Enzymatic activity/volume] in Serum or Plasma 15 U/L 5 - 40 [facility] Alanine aminotransferase [Enzymatic activity/volume] in Seru m or Plasma 10 U/L 7 - 56 [facility] Anion gap 3 in Serum or Plasma 10.0 mmol/L 8.0 - 16.0 [facility] AGE 30 yrs [facility] NON-AA GFR >60 mL/min [facility] AFR AMER GFR >60 mL/min [facility] Male GFR In terprentation 20-49 [...] >32 mL/min Normal ID Date Data Source [id number] 09/26/2020 03:21:00 PM EDT [facility] Name Value Range Interpretation Code Description Data Randa rce(s) Supporting Document(s) Fibrin D-dimer FEU [Mass/volume] in Platelet poor plasma 1.34 ug /mL 0.27 - 0.50 H [facility] ID Date Data Source [id number] 09/26/2020 03:20:00 PM EDT [facility] Name Value Range Interpretation Code Description Data Randa rce(s) Supporting Document(s) Prothrombin time (PT) 12.9 SECONDS 11.0 - 15.5 [facility] INR in Platelet poor plasma by Coagulation assay 0.96 0.93 - 1. 23 [facility] aPTT in Blood by Coagulation assay 41.1 SECONDS 24.8 - 36.7 H [facility] \\BLDo\\INR INTERPRETATION\\BLDx\\ Therapeutic range for Coumadin and related oral anticoagulants. - International Normalized Ratio (INR): 2.0 - 3.0 for Venous Thrombosis, Pulmonary Embolus, Tissue heart valves, Acute DC Atrial Fibrillation, Valvular heart disease and recurrent Systemic Embolism. - International Normalized Ratio (INR): 2.5 - 3.5 for Mechanical Prosthetic valve. ID Date Data Source [id number] 09/26/2020 03:17:00 PM EDT [facility] Name Value Range Interpretation Code Description Data Randa rce(s) Supporting Document(s) HCG SERUM QUAL NEGATIVE NORMAL: NEGATIVE [facility] HCG SERUM QL REENTER NEGATIVE NORMAL: NEGATIVE [facility] { KIT LOT # [id number] ){ KIT EXP DATE 02/15/22 ){ PROCEDURAL CONTROL VALID ) ID Date Data Source [id number] 09/26/2020 03:04:00 PM EDT [facility] Name Value Range Interpretation Code Description Data Randa rce(s) Supporting Document(s) CBC W/AUTOMATED DIFF [facility] COMPLETE BLOOD COUNT Leukocytes [#/volume] in Blood by Automated count 12.1 10^3/uL 4.2 - 11.0 H [facility] Erythrocytes [#/volume] in Blood by Automated count 4.63 10^6/uL 4. 20 - 5.40 [facility] Hemoglobin [Mass/volume] in Blood 13.7 g/dL 12.0 - 16.0 [facility] Hematocrit [Volume Fraction] of Blood by Automated count 40.3 % 3 7.0 - 47.0 [facility] Erythrocyte mean corpuscular volume [Entitic volume] by Auto mated count 87.0 fL 81.0 - 101 [facility] Erythrocyte mean corpuscular hemoglobin [Entitic mass] by Automated count 29.6 pg 27.0 - 34.0 [facility] Erythrocyte mean corpuscular hemoglobin concentration [Mass/volume] by Automated count 34.0 g/dL 31.0 - 36.0 [facility] Erythrocyte distribution width [Ratio] by Automated count 12.9 % 11.5 - 14.5 [facility] Platelets [#/volume] in Blood by Automated count 275 10^3/uL 150 - 45 0 [facility] Platelet mean volume [Entitic volume] in Blood by Automated count 10.7 fL 7.4 - 10.4 H [facility] Neutrophils/100 leukocytes in Blood by Automated count 77.1 % 37. 0 - 80.0 [facility] Lymphocytes/100 leukocytes in Blood by Manual count 14.6 % 25.0 - 40.0 L [facility] Monocytes/100 leukocytes in Blood by Automated count 6.2 % 3.0 - 8.0 [facility] Eosinophils/100 leukocytes in Blood by Automated count 1.3 % 0.0 - 7.0 [facility] Basophils/100 leukocytes in Blood by Automated count 0.5 % 0.0 - 2.5 [facility] %IG 0.3 % 0.0 - 0.0 [facility] %NRBC 0.0 % 0.0 - 0.0 [facility] Neutrophils [#/volume] in Blood by Automated count 9.29 10^3/uL 2.00 - 6.90 H [facility] Lymphocytes [#/volume] in Blood by Automated count 1.76 10^3/uL 0.60 - 3.40 [facility] Monocytes [#/volume] in Blood by Automated count 0.75 10^3/uL 0.00 - 0.90 [facility] Eosinophils [#/volume] in Blood by Automated count 0.16 10^3/uL 0.00 - 0.70 [facility] Basophils [#/volume] in Blood by Automated count 0.06 10^3/uL 0.00 - 0.20 [facility] #IG 0.04 10^3/uL 0.00 - 0.10 [facility] #NRBC 0.00 10^3/uL 0.00 - 0.00 [facility] MANUAL DIFF NOT INDICATED [facility] RBC MORPH NOT INDICATED [facility] ID Date Data Source [id number] 09/26/2020 03:21:00 PM EDT [facility] Name Value Range Interpretation Code Description Data Randa rce(s) Supporting Document(s) [facility] S[facility] R [facility] COLOR yellow NORMAL: Yellow [facility] CLARITY clear NORMAL: Clear [facility] Specific gravity of Urine by Test strip 1.010 1.001 - 1.030 [facility] pH 6.5 5 - 9 [facility] Glucose [Mass/volume] in Urine by Test strip NORM NORMAL: Negat reina [facility] Bilirubin.total [Presence] in Urine by Test strip NEG NORMAL: Negative [facility] Ketones [Presence] in Urine by Test strip NEG NORMAL: Negative [facility] Protein [Mass/volume] in Urine by Test strip NEG NORMAL: Negat [facility] Nitrite [Presence] in Urine by Test strip NEG NORMAL: Negative [facility] BLOOD NEG NORMAL: Negative [facility] LEUK EST NEG NORMAL: Negative [facility] Urobilinogen [Mass/volume] in Urine by Test strip NOR less meena n 1.0 mg/dL [facility] MICROSCOPIC Not Indicate [facility] ID Date Data Source [id number] 09/23/2020 09:45:[address] [facility] Name Value Range Interpretation Code Description Data Randa rce(s) Supporting Document(s) SARS-CoV-2 RNA Resp Ql COLBY+probe NOT DETECTED [facility] This lab was ordered by AIDEN gil and reported by AIDEN Mcintyre. ID Date Data Source [id number] 09/18/2020 10:09:52 AM EDT [facility] Name Value Range Interpretation Code Description Data Randa rce(s) Supporting Document(s) [facility] [id number] jb2 [file] [id number]+c [file] [id number]== ID Date Data Source [id number] 09/17/2020 08:57:00 [place] [address] RESPIRATORY CARE REPORT ==== ---------NAME------- NUMBER SEX AGE ADMIT DISC. XRAY# F/C DENISE Shahid [id number] F 30 09/15/20 09/15/20 090410 SB4 E/R DATE OF : 1990 M/R# [id number] PH#: [phone] TR-07 LOCATION: EMERGENCY DEPT EKG 31463 COMP LETE:09/16/20 06:50 [facility] [address] PHYSICIAN: DONATO Sherman Name Value Range Interpretation Code Description Data Randa rce(s) Supporting Document(s) ID Date Data Source [id number] 09/17/2020 09:29:00 [place] [address] PHONE: [phone] FAX: [phone] Name .................. : MIKKI Shahid Acct Number.................. : [id number] ROOM. ................. : TR- Number ................... : [id number] Stay type ............. : E/R Discharge Date......... ... : Admit Date ......... : 09/15/20 Admit Phys .................... : DONATO Sherman Date of ....... : 1990 Family Phys ................... : UNKNOWN Phone .................. : [phone] Age ................................ : 30 Film# .................. .:[id number] Sex ................................. : F Unsigned transcriptions are preliminary reports and do not represent a medical or legal document CHEST 2 VIEWS 08272 COMPLETE:09/15/20 18:06 35708 Reason(s): Chest Pain CHEST X-RAY: 2-VIEWS COMPARISON: [...] Dictation Date: Copy for: EMERGENCY DEPT via mode Copy for: 710 MED REC DISCHARGED Page 1 of 1 Name Value Range Interpretation Code Description Data Randa rce(s) Supporting Document(s) ID Date Data Source [id number] 09/15/2020 05:46:00 PM EDT [facility] 1 OrderSheet [facility] Emergency Department [address] [place] [address] Phone #: ext- [phone] 09/15/2020 17:42 Patient: AUGIE KAYE Sex: F : 1990 Age: 30yWEIGHT:122.4 kg (S)ALLERGIES: None, NoneCHIEF COMPLAINT: back painDIAGNOSIS: Backache, Muscle strainLAB ORDERSOrder Description Priority Entered Acknowledged InitialedCMP STAT 18:06 09/15/2020 18:07 Donato Sykes Jack ; Eder CorreaCBC w Diff STAT 18:06 09/15/2020 18:07 Donato Sykes Jack ; Frank R.N.Beta-HCG, Qual STAT 18:07 09/15/2020 18:08 Mony,Urine [employer] Sales R.N.DIAGNOSTIC STUDY ORDERSOrder Description Priority Entered Acknowledged InitialedChest 2 View STAT 18:06 09/15/2020 18:07 Mony,(Oxygen?(No)) [employer]ion Sales R.N. Reason for Study: Chest PainUS Gall Bladder STAT 18:07 09/15/2020 18:08 Mony,(Oxygen?(No)) [employer] Sales R.N. Reason for Study: RUQ PainMEDICATION/IV/DRIP/FLUID ORDERSOrder Description Priority Entered Acknowledged InitialedMotrin 600 mg PO 18:06 09/15/2020 18:14 MonyX1 dose: 600 mg [employer] Sales R.N.(NOW x1)GENERAL ORDERSOrder Description Priority Entered Acknowledged InitialedEKG 18:06 09/15/2020 18:07 Donato Sykes Jack ; Eder Correa[Electronically signed by Eder Sykes R.N. (19:44 09/15/2020)][Electronically signed by Asc[employer]ion Sales (20:40 09/15/2020)][Electronically locked by Eder Sykes R.N. (19:44 09/15/2020)] Name Value Range Interpretation Code Description Data Randa rce(s) Supporting Document(s) ID Date Data Source [id number] 09/15/2020 05:46:00 PM EDT [facility] 1 Medication Reconciliation Report [facility] Emergency Department [address] [place] [address] Phone #: ext [phone] 09/15/2020 17:42 Patient: AUGIE KAYE Sex: F [...] rce(s) Supporting Document(s) ID Date Data Source [id number] 09/15/2020 05:46:00 PM EDT [facility] 1 Medication Administration Record [facility] Emergency Department [address] [place] [address] Phone #: ext- [phone] 09/15/2020 17:42 Patient: AUGIE KAYE Sex: F : 1990 Age: 30yWeight: 122.4 kgHeight/Length: 67 inBMI: 42.3ALLERGIES: None, None Date/Time Medication Administered Medication OrderedGiven MOTRIN [PO] (IBUPROFEN) Motrin 600 mg PO X1 dose: 36885:09 09/15/2020 Dose: 600 mg Tablets PO mg (NOW x1)Eder Sykes R.N. Name Value Range Interpretation Code Description Data Randa rce(s) Supporting Document(s) ID Date Data Source [id number] 09/15/2020 05:46:00 PM EDT [facility] 1 General Instructions [facility] Emergency Department [address] [place] [address] Phone #: ext- [phone] 09/15/2020 17:42 Patient: [...] CLINIC Respective Team [place] , , [address], , [place], [address] Follow up in two days as needed. [...] alternate ice and heat. 2 General Instructions [facility] Emergency Department [address] [place] [address] Phone #: [phone]- [phone] 09/15/2020 17:42 Patient: AUGIE KAYE Sex: F : 1990 Age: 30y You may use gjbf-pvz-aqzpfvr pain medicine to control pain, unless another [...] numb, or tingly Pain or swelling increases [id number] [employer] [address] [place] [address], [place] [address]. All rights reserved. This information is not intended as asubstitute for professional medical care. Always follow your healthcare professional's instructions.Back Pain (Acute or Chronic) 3 General Instructions [facility] Emergency Department [address] [place] [address] Phone #: ext- [phone] 09/15/2020 17:42 -- Patient: AUGIE KAYE Sex: Carine : 1990 Age: 30yBack pain is one [...] illness. Mechanical problems include: 4 General Instructions [facility] Emergency Department [address] [place] [address] Phone #: ext- [phone] 09/15/2020 17:42 Patient: AUGIE KAYE Sex: Carine : 1990 Age: 30y Physical activity such [...] painful area for 20 5 General Instructions [facility] Emergency Department [address] [place] [address] Phone #: ext- [phone] 09/15/2020 17:42 [id number] Sex: F : 1990 Age: 30y minutes [...] or are takingother medicines. You may use ohdt-dfx-obxnapo medicine as directed on the bottle to [...] to seek medical advice 6 General Instructions [facility] Emergency Department [address] [place] [address] Phone #: ext- [phone] 09/15/2020 17:42 Patient: AUGIE KAYE Sex: F : 1990 Age: 30yCall your healthcare provider right away if any of these occur: Pain becomes worse or spreads to your legs Weakness or numbness in one or both legs Numbness in the groin or genital area 1999- 2019 [employer] [address] [place] [address]. All rights reserved. This information is not intended as asubstitute for professional medical care. Always follow your healthcare professional's instructions. You have been given the following additional information: Muscle Strain, Extremity Back Pain (Acute or Chronic)(Electronically signed by [employer]encion Sales 09/15/2020 20:40) Name Value Range Interpretation Code Description Data Randa rce(s) Supporting Document(s) ID Date Data Source [id number] 09/15/2020 05:46:00 PM EDT [facility] 1 Clinical Report - Nurses [facility] Emergency Department [address] [place] [address] Phone #: ext- [phone] 09/15/2020 17:42 Patient: AUGIE KAYE Sex: F : 1990 Age: 30yTRIAGEArrived by EMS. Historian: patient. Unaccompanied. ( presents with chest pain).Triage time: 17:44 09/15/2020. Acuity: LEVEL 3.Chief Complaint: CHEST PAIN.17:48 09/15/20. Alert. No acute distress.This started today. Onset. (1700). She has had nausea.Treatment TELEPHONE COLLECTOR:None.SEPSIS SCREEN: SEPSIS SCREEN NEGATIVE. No suspected or [...] Sykes R.N. 2 Clinical Report - Nurses [facility] Emergency Department [address] [place] [address] Phone #: [phone]- [phone] 09/15/2020 17:42 Patient: AUGIE KAYE Sex: F : 1990 Age: 30y 17:48 [...] treatment room. --17:48 09/15/20 Eder Sykes R.N.PHYSICAL [id number] 09/15/20. To room via stretcher. Patient gowned.GENERAL [...] 17:44 09/15/2020). EKG was performed by a aleks and shown to the ED physician. 3 Clinical Report - Nurses [facility] Emergency Department [address] [place] [address] Phone #: ext- [phone] 09/15/2020 17:42 Patient: AUGIE KAYE Sex: F : 1990 Age: 30y --17:55 09/15/20 [facility] ER Tech1 18:00 09/15/20. Reassurance [...] F. Pain level now 0/10. --19:33 09/15/20 [facility] ER Tech1 19:27 09/15/20. Departure time: 19:37 [...] Patient verbalized understanding. Written instructions provided in Argentine. The patient was discharged by the physician. She was discharged home. She left ambulatory and via taxi. --19:43 09/15/20 Eder Sykes R.N.Locked/Released at 09/15/2020 19:44 by Eder Sykes R.N. Name Value Range Interpretation Code Description Data Randa rce(s) Supporting Document(s) ID Date Data Source [id number] 09/15/2020 05:46:00 PM EDT [facility] 1 Clinical Report - Physicians/Mid Levels [facility] Emergency Department [address] [place] [address] Phone #: ext- [phone] 09/15/2020 17:42 Patient: [...] Allergies: 2 Clinical Report - Physicians/Mid Levels [facility] Emergency Department [address] [place] [address] Phone #: ext- [phone] 09/15/2020 17:42 Patient: AUGIE KAYE Sex: F : 1990 Age: 30y None. [...] NEGATIVE (NORMAL: NEGAT { KIT LOT # [id number] ){ KIT EXP DATE 02/15/22 ){ PROCEDURAL CONTROL VALID ) Gall Bladder: (AME: 09/15/2020 18:07) ( MsgRcvd 09/15/2020 18:58) Final results Exam 3 Clinical Report - Physicians/Mid Levels [facility] Emergency Department [address] [place] [address] Phone #: ext- [phone] 09/15/2020 17:42 Patient: AUGIE KAYE Sex: F : 1990 Age: 30y US GALLBLADDER [address] [place] [address] ---------NAME--------- NUMBER SEX AGE ADMIT DISC. XRAY# F/C TYPE MIKKI Shahid [id number] F 30 09/15/[id number] SB4 E/R DATE OF : 1990 M/R# [id number] #: [id number] TR-07 LOCATION: EMERGENCY DEPT TRANSCRIBED: 09/15/20 18:56 IF US GALLBLADDER [id number] COMPLETED:09/15/20 18:47 KNB [id number] Reason(s): RUQ Pain PHYSICIAN: DONATO Sehrman R A D I O L O [...] 99) 4 Clinical Report - Physicians/Mid Levels [facility] Emergency Department [address] [place] [address] Phone #: ext- [phone] 09/15/2020 17:42 Patient: [...] Male GFR Interprentation 20-49 yrs >60 mL/min Jddevf58-00 yrs >56 mL/min Normal 60-69 yrs >49 mL/min Normal 70-79yrs>42 mL/min Normal 80 and above >35 mL/min Normal Female GFRInterpretation 20-39 yrs >60 mL/min Normal 40-49 yrs >58 mL/minNormal 50-59 yrs >51 mL/min Normal 60-69 yrs >45 mL/min Clmtju77-11 yrs >39 mL/min Normal 80 and above [...] 19:32) In Progress Exam CHEST 2 VIEWS [facility] 5 Clinical Report - Physicians/Mid Levels [facility] Emergency Department [address] [place] [address] Phone #: ext- [phone] 09/15/2020 17:42 Patient: AUGIE KAYE Sex: F : 1990 Age: 30y [address] [place] [address] PHONE: [phone] FAX: [phone] Name .................. : MIKKI Shahid Acct Number.................. : [id number] ROOM. ................. : TR-07 MR Number ................... : [id number] Stay type ............. : E/R Discharge Date......... ... : Admit Date ......... : 09/15/20 Admit Phys .................... : DONATO Sherman Date of ....... : 1990 Family Phys ................... : UNKNOWN Phone .................. : [phone] Age ................................ : 30 Film# .................. .:[id number] Sex ................................. : F Unsigned transcriptions are preliminary reports and do not represent a medical or legal document CHEST 2 VIEWS [id number] COMPLETE:09/15/20 18:06 [id number] Reason(s): Chest Pain CHEST X-RAY: 2-VIEWS COMPARISON: [...] stable. 6 Clinical Report - Physicians/Mid Levels [facility] Emergency Department [address] [place] [address] Phone #: ext- [phone] 09/15/2020 17:42 Patient: [...] CLINIC Respective Team [place], , , [address] [address], , [place], [address] Follow up in two days as needed. Call for an appointment.(Electronically signed by [employer] 09/15/2020 20:40) Name Value Range Interpretation Code Description Data Randa rce(s) Supporting Document(s) ID Date Data Source [id number] 09/15/2020 06:56:00 [place] [address] ---------NAME--------- NUMBER SEX AGE ADMIT DISC. XRAY# F/C TYPE MIKKI Shahid [id number] F 30 09/15/[id number] SB4 E/R DATE OF : 1990 M/R# [id number] #: [id number] TR-07 LOCATION: EMERGENCY DEPT TRANSCRIBED: 09/15/20 18:56 IF US GALLBLADDER [id number] COMPLETED:09/15/20 18:47 [facility] [id number] Reason(s): RUQ Pain PHYSICIAN: DONATO Sherman R [...] rce(s) Supporting Document(s) ID Date Data Source [id number] 09/15/2020 07:21:00 PM EDT [facility] Name Value Range Interpretation Code Description Data Randa rce(s) Supporting Document(s) COMPREHENSIVE METABOLIC PANEL [facility] COMPREHENSIVE METABOLIC PANEL Sodium [Moles/volume] in Serum or Plasma 136 mEq/L 134 - 153 [facility] Potassium [Moles/volume] in Serum or Plasma 4.2 mEq/L 3.6 - 5.0 [facility] Chloride [Moles/volume] in Serum or Plasma 102 mEq/L 98 - 107 [facility] Carbon dioxide, total [Moles/volume] in Serum or Plasma 27 MEQ/L 22 - 30 [facility] Glucose [Mass/volume] in Serum or Plasma 95 MG/DL 70 - 99 [facility] BUN 5 MG/DL 7 - 21 L [facility] Creatinine [Mass/volume] in Serum or Plasma 0.7 MG/DL 0.7 - 1.5 [facility] BUN/CREAT 7 8 - 27 L [facility] Protein [Mass/volume] in Serum or Plasma 7.2 G/DL 6.3 - 8.2 [facility] Albumin [Mass/volume] in Serum or Plasma 3.9 G/DL 3.9 - 5.0 [facility] Globulin [Mass/volume] in Serum by calculation 3.3 GM/DL 2.4 - 3.2 H [facility] A/G RATIO 1.2 0.8 - 2.0 [facility] Calcium [Mass/volume] in Serum or Plasma 9.1 MG/DL 8.4 - 10.2 [facility] Bilirubin.total [Mass/volume] in Serum or Plasma <0.7 MG/DL 0.2 - 1.3 [facility] Alkaline phosphatase [Enzymatic activity/volume] in Serum or Plasma 72 U/L 38 - 126 [facility] Aspartate aminotransferase [Enzymatic activity/volume] in Serum or Plasma 15 U/L 5 - 40 [facility] Alanine aminotransferase [Enzymatic activity/volume] in Seru m or Plasma 12 U/L 7 - 56 [facility] Anion gap 3 in Serum or Plasma 7.0 mmol/L 8.0 - 16.0 L [facility] AGE 30 yrs [facility] al NON-AA GFR >60 mL/min [facility] ital AFR AMER GFR >60 mL/min [facility] spital Male GFR In terprentation 20-49 [...] >32 mL/min Normal ID Date Data Source [id number] 09/15/2020 07:08:00 PM EDT [facility] Name Value Range Interpretation Code Description Data Randa rce(s) Supporting Document(s) CBC W/AUTOMATED DIFF [facility] COMPLETE BLOOD COUNT Leukocytes [#/volume] in Blood by Automated count 12.3 10^3/uL 4.2 - 11.0 H [facility] Erythrocytes [#/volume] in Blood by Automated count 4.33 10^6/uL 4. 20 - 5.40 [facility] Hemoglobin [Mass/volume] in Blood 12.8 g/dL 12.0 - 16.0 [facility] Hematocrit [Volume Fraction] of Blood by Automated count 38.2 % 3 7.0 - 47.0 [facility] Erythrocyte mean corpuscular volume [Entitic volume] by Auto mated count 88.2 fL 81.0 - 101 [facility] Erythrocyte mean corpuscular hemoglobin [Entitic mass] by Automated count 29.6 pg 27.0 - 34.0 [facility] Erythrocyte mean corpuscular hemoglobin concentration [Mass/volume] by Automated count 33.5 g/dL 31.0 - 36.0 [facility] Erythrocyte distribution width [Ratio] by Automated count 12.9 % 11.5 - 14.5 [facility] Platelets [#/volume] in Blood by Automated count 288 10^3/uL 150 - 45 0 [facility] Platelet mean volume [Entitic volume] in Blood by Automated count 10.7 fL 7.4 - 10.4 H [facility] Neutrophils/100 leukocytes in Blood by Automated count 77.6 % 37. 0 - 80.0 [facility] Lymphocytes/100 leukocytes in Blood by Manual count 13.4 % 25.0 - 40.0 L [facility] Monocytes/100 leukocytes in Blood by Automated count 7.0 % 3.0 - 8.0 [facility] Eosinophils/100 leukocytes in Blood by Automated count 1.1 % 0.0 - 7.0 [facility] Basophils/100 leukocytes in Blood by Automated count 0.6 % 0.0 - 2.5 [facility] %IG 0.3 % 0.0 - 0.0 [facility] %NR[facility] 0.0 % 0.0 - 0.0 [facility] al Neutrophils [#/volume] in Blood by Automated count 9.56 10^3/uL 2.00 - 6.90 H [facility] Lymphocytes [#/volume] in Blood by Automated count 1.65 10^3/uL 0.60 - 3.40 [facility] Monocytes [#/volume] in Blood by Automated count 0.86 10^3/uL 0.00 - 0.90 [facility] Eosinophils [#/volume] in Blood by Automated count 0.13 10^3/uL 0.00 - 0.70 [facility] Basophils [#/volume] in Blood by Automated count 0.07 10^3/uL 0.00 - 0.20 [facility] #IG 0.04 10^3/uL 0.00 - 0.10 [facility] ospital #NRBC 0.00 10^3/uL 0.00 - 0.00 [facility] ospital MANUAL DIFF NOT INDICATED [facility] RBC MORPH NOT INDICATED [facility] spital ID Date Data Source [id number] 09/15/2020 06:48:00 PM EDT [facility] Name Value Range Interpretation Code Description Data Randa rce(s) Supporting Document(s) HCG URINE QUAL NEGATIVE NORMAL: NEGATIVE [facility] HCG URINE QL REENTER NEGATIVE NORMAL: NEGATIVE [facility] { KIT LOT # [id number] ){ KIT EXP DATE 02/15/22 ){ PROCEDURAL CONTROL VALID ) ID Date Data Source [id number] 09/15/2020 03:53:00 PM EDT [facility]) Name Value Range Interpretation Code Description Data Randa rce(s) Supporting Document(s) Albumin [Mass/volume] in Serum or Plasma 3.9 [facility] ([facility]) Alanine aminotransferase [Enzymatic activity/volume] in Serum or Pl asma 12 [facility] ([facility]) Calcium [Mass/volume] in Serum or Plasma 9.1 [facility] ([facility]) Carbon dioxide, total [Moles/volume] in Serum or Plasma 27 [facility] ([facility]) Alkaline phosphatase [Enzymatic activity/volume] in Serum or Plasma 7 2 [facility] ([facility]) Chloride [Moles/volume] in Serum or Plasma 102 [facility] ([facility]) Protein [Mass/volume] in Serum or Plasma 7.2 [facility] ([facility]) Potassium [Moles/volume] in Serum or Plasma 4.2 [facility] ([facility]) Sodium 136 [facility] ([facility]) Aspartate aminotransferase [Enzymatic activity/volume] in Serum or Plasma 15 [facility] ([facility]) Glucose 95 70-99 [facility] ([facility]) Creatinine For GFR 0.7 [facility] Urea nitrogen [Mass/volume] in Serum or Plasma 7 [facility] ([facility]) ID Date Data Source [id number] 09/15/2020 03:53:00 PM EDT [facility] Name Value Range Interpretation Code Description Data Randa rce(s) Supporting Document(s) White Blood Count 12.3 4.2-11.0 [facility] ([facility]) Red Blood Count 4.33 4.20-5.40 [facility] ([facility]) Platelets 288 130-400 [facility] ([facility]) Hemoglobin 12.8 12.0-16.0 [facility] ([facility]) Hematocrit 38.2 37.0-47.0 [facility] ([facility]) ID Date Data Source [id number] 09/03/2020 10:07:00 AM EDT [facility] Name Value Range Interpretation Code Description Data Randa rce(s) Supporting Document(s) Troponin Laboratory test result [facility] ([facility]) ID Date Data Source [id number] 09/03/2020 10:07:00 AM EDT [facility] ([facility]) Name Value Range Interpretation Code Description Data Randa rce(s) Supporting Document(s) Creatine kinase [Enzymatic activity/volume] in Serum or Plasma 90 [facility] ([facility]) CPK-MB Laboratory test result [facility] ([facility]) ID Date Data Source [id number] 09/03/2020 10:07:00 AM EDT [facility] ([facility]) Name Value Range Interpretation Code Description Data Randa rce(s) Supporting Document(s) White Blood Count 11.5 4.0-10.0 [facility] ([facility]) Red Blood Count 4.76 4.00-5.40 [facility] ([facility]) Platelets 281 150-450 [facility] ([facility]) Hematocrit 42.5 [facility] ([facility]) Hemoglobin 14.0 [facility] ([facility]) ID Date Data Source [id number] 09/03/2020 10:07:00 AM EDT [facility] ([facility]) Name Value Range Interpretation Code Description Data Randa rce(s) Supporting Document(s) Aspartate aminotransferase [Enzymatic activity/volume] in Se rum or Plasma 18 15-37 [facility] ([facility]) Alanine aminotransferase [Enzymatic activity/volume] i n Serum or Plasma 24 30-65 [facility] ([facility] [employer] [facility]) Alk Phos 67 50-136 [facility] ([facility]) Total Bilirubin 0.2 0.0-1.0 [facility] ([facility]) Albumin 3.7 3.2-5.2 [facility] ([facility]) Total Protein 7.6 6.4-8.2 [facility] ([facility]) A/G Ratio Laboratory test result 1.00-1.93 [facility] ([facility]) ID Date Data Source [id number] 08/30/2020 08:30:[address] [facility] Name Value Range Interpretation Code Description Data Randa rce(s) Supporting Document(s) SARS-CoV-2 RNA Resp Ql COLBY+probe NOT DETECTED [facility] This lab was ordered by AIDEN gil and reported by AIDEN Mcintyre. ID Date Data Source [id number] 04/24/2020 07:03:00 PM EST [facility] Name Value Range Interpretation Code Description Data Randa rce(s) Supporting Document(s) BHD COVID-19 RT-PCR YARDMASTER SWAB Not Detected Not Detected [facility] This test has received Emergency Use Aut horization (EUA). We willcontinue to follow federal and state requirements for COVID-19reporting. This test was developed and its performance characteristicsdetermined by [facility]. It has not been cleared orapproved by [...] agencies as required. ID Date Data Source [id number] 04/21/2020 11:30:00 AM EST [facility] Name Value Range Interpretation Code Description Data Randa rce(s) Supporting Document(s) SARS coronavirus 2 RNA [Presence] in Res piratory specimen by COLBY with probe detection NEGATIVE [facility] This lab was ordered by [facility] and reported by [facility]. ID Date Data Source [id number] 04/21/2020 12:00:00 AM EST [facility] Name Value Range Interpretation Code Description Data Randa rce(s) Supporting Document(s) Carestart Rapid COVID Antigen Test Negative [facility] This lab was reported by [facility]. ID Date Data Source [id number] 03/13/2020 12:00:00 PM EST [facility] ([facility]) Name Value Range Interpretation Code Description Data Randa rce(s) Supporting Document(s) Laboratory test finding (navigational concept) Laboratory test result [facility] ([facility]) Laboratory test finding (navigational concept) Laboratory test result [facility] ([facility]) Laboratory test finding (navigational concept) 6.0 units 5.0-9.0 [facility] ([facility]) Laboratory test finding (navigational concept) 1.006 1.002-1.035 [facility] ([facility]) Laboratory test finding (navigational concept) Laboratory test result [facility] ([facility]) Laboratory test finding (navigational concept) 0.2 mg/dL 0.0-2.0 [facility] ([facility]) Laboratory test finding (navigational concept) Laboratory test result [facility] ([facility]) Laboratory test finding (navigational concept) Laboratory test result [facility] ([facility]) Laboratory test finding (navigational concept) Laboratory test result [facility] ([facility]) Laboratory test finding (navigational concept) Laboratory test result [facility] ([facility]) Laboratory test finding (navigational concept) Laboratory test result [facility] ([facility]) Laboratory test finding (navigational concept) Laboratory test result [facility] ([facility]) Laboratory test finding (navigational concept) 0 /HPF 0-3 [facility] ([facility]) Laboratory test finding (navigational concept) Laboratory test result [facility] ([facility]) Laboratory test finding (navigational concept) 1 /HPF 0-3 [facility] ([facility]) Laboratory test finding (navigational concept) 0 /HPF 0-6 [facility] ([facility]) Laboratory test finding (navigational concept) 0 /LPF 0-1 [facility] ([facility]) ID Date Data Source [id number] 03/13/2020 11:34:00 AM EST [facility] Name Value Range Interpretation Code Description Data Randa rce(s) Supporting Document(s) Lipoprotein lipase [Enzymatic activity/volume] in Serum or Plasm a 91 U/L 73-393 [facility] ([facility]) ID Date Data Source [id number] 03/13/2020 11:34:00 AM EST [facility] ([facility] Name Value Range Interpretation Code Description Data Randa rce(s) Supporting Document(s) Glucose, Fasting 82 mg/dL 70-100 [facility] ([facility]) Blood Urea Nitrogen 11 mg/dL 7-18 [facility] ([facility]) Creatinine For GFR 0.82 mg/dL 0.55-1.30 [facility] ([facility]) Glomerular Filtration Rate Laboratory test result [facility]) <content>Units are mL/min/1.73 m2</content>
<content></content>
<content>Chronic Kidney Disease Staging per NKF:</content>
<content></content>
<content>Stage I & II GFR >=60 Normal to Mildly Decreased</content>
<content>Stage III GFR 30-59 Moderately Decreased</content>
<content>Stage IV GFR 15-29 Severely Decreased</content>
<content>Stage V GFR <15 Very Little GFR Left</content>
<content>ESRD GFR <15 on ENFORCEMENT SAFETY OFFICER</content>
<content></content> Sodium Level 138 meq/L 136-145 [facility] ([facility]) Carbon Dioxide Level 29 meq/L 21-32 [facility] ([facility]) Chloride Level 105 meq/L 98-107 [facility] ([facility]) Potassium Serum 4.1 meq/L 3.5-5.1 [facility] ([facility]) Calcium Level 9.5 mg/dL 8.5-10.1 [facility] ([facility]) Anion Gap 4 meq/L 8-16 [facility] ([facility]) ID Date Data Source [id number] 03/13/2020 11:34:00 AM EST [facility] ([facility]) Name Value Range Interpretation Code Description Data Randa rce(s) Supporting Document(s) Ast/Sgot 11 U/L 7-37 [facility] ([facility]) Alt/SGPT 20 U/L 12-78 [facility] ([facility]) Alkaline Phosphatase 75 U/L 45-117 [facility] ([facility]) Bilirubin,Total 1.1 mg/dL 0.2-1.0 [facility] ([facility]) Bilirubin,Direct 0.2 mg/dL 0.0-0.2 [facility] ([facility]) Albumin 3.8 GM/DL 3.2-5.2 [facility] ([facility]) Total Protein 7.7 GM/DL 6.4-8.2 [facility] ([facility]) Albumin/Globulin Ratio 1.0 1.2-2.2 [facility] ([facility]) ID Date Data Source [id number] 03/13/2020 11:34:00 AM EST [facility] ([facility]) Name Value Range Interpretation Code Description Data Randa rce(s) Supporting Document(s) CPK Creatine Phosphokinase 85 U/L 26-192 [facility] ([facility]) CK-MB Value Mass Laboratory test result [facility] ([facility]) MB/CK Relative Index 1.18 [facility] ([facility]) <content>DIAGNOSIS CRITERIA</content>
<content>MMB ng/ml Relative Index (RI)</content>
<content>NON-AMI < or = 5 N/A</content>
<content>BARAKAT ZONE > 5 < or = 4</content>
<content>AMI > 5 > 4</content>
<content></content> Troponin I Laboratory test result [facility] ([facility]) <content>Troponin I Reference Interval f or Siemens [place] LOCI:</content>
<content></content>
<content>99th Percentile= 0.00-0.045 ng/ml</content>
<content></content>
<content>Risk Stratification:</content>
<content><= 0.10 ng/ml Decreased Risk for Adverse Clinical</content>
<content>Events.</content>
<content>0.10-1.50 ng/ml Increased Risk for Adverse Clinical</content>
<content>Events. Evaluation of additional</content>
<content>criterion and/or repeat testing in 2-6</content>
<content>hours is suggested to rule out myocardial</content>
<content>damage.</content>
<content>>= 1.50 ng/ml Indicative of Myocardial Injury.</content>
<content></content> ID Date Data Source [id number] 03/13/2020 11:34:00 AM EST [facility] ([facility]) Name Value Range Interpretation Code Description Data Randa rce(s) Supporting Document(s) White Blood Count 12.3 10 4.0-10.0 [facility] ([facility]) Red Blood Count 4.53 10 4.00-5.40 [facility] ([facility]) Hemoglobin 13.3 g/dL 12.0-15.5 [facility] ([facility] Hematocrit 40.6 % 36.0-47.0 [facility] Mean Corpuscular Volume 89.6 fl 80.0-96.0 M [facility] ([facility]) Mean Corpuscular HGB Conc 32.8 g/dL 32.0-36.5 [facility] ([facility]) Mean Corpuscular Hemoglobin 29.4 pg 27.0-33.0 [facility] ([facility]) Red Cell Distribution Width 13.1 % 11.5-14.5 [facility] ([facility]) Neutrophils % 78.5 % 36.0-66.0 [facility] ([facility]) Lymph % 13.0 % 24.0-44.0 [facility] ([facility], [facility]) Platelet Count, Automated 279 10 150-450 MEDENT ([facility]) Eos % 0.8 % 0.0-3.0 [facility] ([facility]) [place] % 6.7 % 0.0-5.0 [facility] ([facility]) Nucleated Red Blood Cell % 0.0 % 0-0 MED ENT ([facility]) Immature Granulocyte % 0.3 % 0-3.0 [facility] ([facility]) Baso % 0.7 % 0.0-1.0 [facility] ([facility]) Lymph # 1.6 10 1.5-5.0 [facility] ([facility]) Neutrophils # 9.7 10 1.5-8.5 MEDENT ([facility]) [place] # 0.8 10 0.0-0.8 [facility] ([facility]) Eos # 0.1 10 0.0-0.5 [facility] ([facility]) Baso # 0.1 10 0.0-0.2 [facility] ([facility]) ID Date Data Source [id number] 01/16/2020 12:37:00 PM EST MED[facility] ([facility]) Name Value Range Interpretation Code Description Data Randa rce(s) Supporting Document(s) Surgical pathology study Laboratory test result MEDENT ([facility]) <content>FINAL DIAGNOSIS</content>
<content></content>
<content>Esophagus, below Z line, biopsy:</content>
<content>Gastric cardia type mucosa with mild reactive gastropathy.</content>
<content>No evidence for intestinal metaplasia.</content>
<content>No evidence for H. pylori-like organisms on H & E stain.</content>
<content>01/17/2020 - 1329</content>
<content></content>
<content>CLINICAL DIAGNOSIS</content>
<content></content>
<content>Refractory heartburn</content>
<content>01/17/2020719</content>
<content></content>
<content>GROSS DIAGNOSIS</content>
<content></content>
<content>Received in formalin labeled "biopsy below Z-line" consists of two</content>
<content>fragments of nassar tissue measuring 0.2 x 0.2 x 0.2 cm in aggregate. All</content>
<content>in one.</content>
<content>- SV</content>
<content>01/17/2020719</content>
<content></content>
<content>Signed BONNY DILLARD MD 01/17/2020 1554</content>
<content></content> ID Date Data Source [id number] 12/22/2019 12:06:00 [place] [address] PHONE: [phone] FAX: [phone] Name .................. : MIKKI Shahid Acct Number.................. : [id number] ROOM. ................. : TR-05 Number ................... : [id number] Stay type ............. : E/R Discharge Date......... ... : 12/21/19 Admit Date ....... .. : 12/21/19 Admit Phys .................... : GABRIEL WILSON Date of ....... : 1990 Family Phys ................... : UNKNOWN Phone .................. : [phone] Age ................................ : 29 Film# .................. .:[id number] Sex ................................. : F Unsigned transcriptions are preliminary reports and do not represent a medical or legal document GALLBLADDER [id number] COMPLETE:12/21/19 10:44 KNB [id number] Reason(s): Nausea w Vomiting G ALLBLADDER ULTRASOUND, [...] MD , 12/22/19 12:06, KGJosué Transcribe Initials: SSR, Transcribe Date: 12/21/19 13:59, Dictation Date: Copy for: EMERGENCY DEPT via modem Copy for: 710 MED REC DISCHARGED Page 1 of 1 Name Value Range Interpretation Code Description Data Randa rce(s) Supporting Document(s) ID Date Data Source [id number] 12/21/2019 09:10:00 AM EST [facility] 1 OrderSheet [facility] Emergency Department [address] [place] [address] Phone #: ext- [phone] 12/21/2019 09:09 [id number] Sex: F : 1990 Age: 29yWEIGHT:127.0 kg (S) HEIGHT:67 inches (S) BMI:43.9ALLERGIES: NoneCHIEF COMPLAINT: diarrhea, abdominal pain, nauseaDIAGNOSIS: Gastroesophageal reflux disease, GastroenteritisLAB ORDERSOrder Description Priority Entered Acknowledged InitialedCBC w Diff STAT 09:34 12/21/2019 09:42 MobileJj Guerrero payroll analystRomero M.D.; [id number] STAT 09:34 12/21/2019 09:42 Mobilemanan Rios Jj payroll analystRomero M.D.; [id number] STAT 09:34 12/21/2019 09:42 Mobile Gabriel Jj payroll analystRomero M.D.; [id number] (Clean STAT 09:34 12/21/2019 10:04 Nadege Peña) Jj Rios R.N. MTiffaniDTiffani;Beta-HCG, Qual STAT 09:34 12/21/2019 09:42 MobileSerum Gabriel Jj payroll analystRomero M.D.; [id number] STUDY ORDERSOrder Description Priority Entered Acknowledged InitialedUS Gall Bladder STAT 09:34 12/21/2019 10:04 Yessica Peña(Oxygen?(No)) Jj Rios.N. M.DTiffani; Reason for Study: Nausea w Vomiting, RUQ PainMEDICATION/IV/DRIP/FLUID ORDERSOrder Description Priority Entered Acknowledged InitialedNS IV 1000 mL 09:35 12/21/2019 10:02 Indu Peña: : Bolus 1000 Jj Rios R.N.mL (X1) M.DTiffani;Protonix IVPB 40 09:35 12/21/2019 Cancelled: Physician Order 09:58 mg Casey with Dextrose Jj Rios R.N.100 ml spike bag M.DTiffani; 2 OrderSheet [facility] Emergency Department [address] [place] [address] Phone #: ext- [phone] 12/21/2019 09:09 Patient: AUGIE KAYE Sex: F : 1990 Age: 29y(D5W)Zofran 4 mg IVP X 1 09:35 12/21/2019 10:02 Leona Peña: 4 mg (NOW Jj Rios R.N.x1) Nazanin;Protonix IV Push 40 09:58 12/21/2019 [...] (11:25 12/21/2019)][Electronically locked by Eleanor Mayfield R.N. (11:22 12/21/2019)] Name Value Range Interpretation Code Description Data Randa rce(s) Supporting Document(s) ID Date Data Source [id number] 12/21/2019 09:10:00 AM EST [facility] 1 Medication Reconciliation Report [facility] Emergency Department [address] [place] [address] Phone #: ext- [phone] 12/21/2019 09:09 Patient: [...] Dispense 30 tablet.Refills: 1. Substitution permitted.Pharmacy - [facility] [address] ; [place] [address]. Phone: .Zofran 4 mg tablet Take 1 tablet four times a day as needed for 4 days -- Dispense 16 tablet. Refills: 0.Substitution permitted.Pharmacy - [facility] [id number] ; [place] [address]. . -- Jj Rios M.D. Name Value Range Interpretation Code Description Data Randa rce(s) Supporting Document(s) ID Date Data Source [id number] 12/21/2019 09:10:00 AM EST [facility] 1 Medication Administration Record [facility] Emergency Department [address] [place] [address] Phone #: ext- [phone] 12/21/2019 09:09 Patient: AUGIE KAYE Sex: F : 1990 Age: 29yWeight: 127.0 kgHeight/Length: 67 inBMI: 43.9ALLERGIES: None Date/Time Medication Administered Medication OrderedStart IV NS NS IV 1000 mL Bolus: : Bolus 168662:[id number] 12/21/2019 Dose: IV Fluids mL (X1)Yessica Peña [...] rce(s) Supporting Document(s) ID Date Data Source [id number] 12/21/2019 09:10:00 AM EST [facility] 1 General Instructions [facility] Emergency Department [address] [place] [address] Phone #: ext [phone] 12/21/2019 09:09 Patient: AUGIE KAYE Sex: F [...] days -- Dispense 30 tablet.Refills: 1. Substitution permitted.[facility] [address] ; [place] [address]. .Zofran 4 mg tablet Take 1 tablet four times a day as needed for 4 days -- Dispense 16 tablet. Refills: 0.Substitution permitted.[facility] [address] ; [place] [address]. .Follow-up:Return to the emergency department as needed. Follow up with your healthcare provider in three dayseven if well. Call for an appointment. Reason for referral: evaluation and treatment. Summary of careprovided to patient via paper. Follow up with a bag machine set up operator in five days even if well. Call for anappointment. Reason for referral: evaluation, treatment and upper endoscopy as needed. Summary of careprovided to patient via paper. 2 General Instructions [facility] Emergency Department [address] [place] [address] Phone #: ext- [phone] 12/21/2019 09:09 Patient: [...] include: Watery, loose stools 3 General Instructions [facility] Emergency Department [address] [place] [address] Phone #: ext- [phone] 12/21/2019 09:09 Patient: [...] with soap and water or use alcohol-based displayer to prevent the spread of infection. Wash your hands after touching anyone who is sick. Wash your hands or use alcohol-based displayer after using the toilet and before meals. [...] Keep uncooked meats away from cooked and whwcr-le-lng foods.MedicineYou may use acetaminophen or NSAID medicines [...] or severe abdominal pain. 4 General Instructions [facility] Emergency Department [address] [place] [address] Phone #: ext- [phone] 12/21/2019 09:09 Patient: [...] until you feel better. 5 General Instructions [facility] Emergency Department [address] [place] [address] Phone #: ext- [phone] 12/21/2019 09:09 Patient: [...] taken, call as directed for the results.Call 911Call 911 if any of these occur: Trouble breathing [...] directed by your healthcare provider Tunde souza [phone] [employer] [address] [place] [address]. All rights reserved. This information is not intended as asubstitute for professional medical care. Always follow your healthcare professional's instructions. 6 General Instructions [facility] Emergency Department [address] [place] [address] Phone #: ext- [phone] 12/21/2019 09:09 Patient: [...] continue treatment or get 7 General Instructions [facility] Emergency Department [address] [place] [address] Phone #: [phone] tsp- [phone] 12/21/2019 09:09 Patient: AUGIE KAYE Sex: F : 1990 Age: 29ytreatment on [...] neck, shoulder, or arm 8 General Instructions [facility] Emergency Department [address] [place] [address] Phone #: ext- [phone] 12/21/2019 09:09 Patient: AUGIE KAYE Sex: F : 1990 Age: 29y An eghy-nwo-ctsfgxi trial of medicine doesn't relieve your symptoms Weight loss that can't be explained Trouble or pain swallowing Frequent vomiting (can't keep down liquids) Blood in the stool or vomit (red or black in color) Feeling weak or dizzy Fever of 100.4F (38C) or higher, or as directed by your healthcare provider [phone] [employer] [address] [place] [address]. All rights reserved. This information is not intended as asubstitute for professional medical care. Always follow your healthcare professional's instructions. You have been given the following additional information: Gastroenteritis, Viral (Adult) GERD (Adult)(Electronically signed by Jj Rios M.D. 12/21/2019 11:25) Name Value Range Interpretation Code Description Data Randa rce(s) Supporting Document(s) ID Date Data Source [id number] 12/21/2019 09:10:00 AM EST [facility] 1 Clinical Report - Nurses [facility] Emergency Department [address] [place] [address] Phone #: ext- [phone] 12/21/2019 09:09 Patient: AUGIE KAYE Sex: F : 1990 Age: 29yTRIAGEArrived by private vehicle. Historian: patient. Accompanied by family. ( has a hx of GERD startedyesterday epigastric area and woke up with am with loose stools x3).Acuity: LEVEL 3.Chief Complaint: ABDOMINAL PAIN and DIARRHEA.Alert. No acute distress.This started yesterday.Treatment TELEPHONE COLLECTOR:(pepcid).SEPSIS SCREEN: SIRS Screen negative. Sepsis Screen negative. No suspected or confirmed signs ofinfection present. --09:16 12/21/19 Ysesica Peña R.N.09:11 12/21/19. BP: 161/84. MAP: 109. HR: 81. RR: 18. O2 saturation: 100%. Temp: 97.8 F. Pain levelnow: 6/10. --09:16 12/21/19 Yessica Peña R.N.Weight: 127 kg [...] protected sex. 2 Clinical Report - Nurses [facility] Emergency Department [address] [place] [address] Phone #: ext- [phone] 12/21/2019 09:09 Patient: AUGIE KAYE Sex: F : 1990 Age: 29y SOCIAL [...] assessment completed. No skin integrity risk identified. --09:16 12/21/19 Yessica Peña R.N. Interventions Identification band on patient. To treatment room. --09:16 12/21/19 Yessica Peña R.N.PHYSICAL ASSESSMENTGENERAL / NEURO / [...] with aseptic 3 Clinical Report - Nurses [facility] Emergency Department [address] [place] [address] Phone #: ext- [phone] 12/21/2019 09:09 Patient: AUGIE KAYE Sex: F [...] reaction and precautions.Verbalizes understanding. --10:12/21/19 Yessica Peña R.N.:12/21/2019 Zofran (Ondansetron HCl) IVP 4 mg given over 2 minute(s) via site #1. Allergies verifiedand confirmed 5 rights. IV patency established. IV site checked: no pain, redness, or swelling. IV flushedthoroughly pre- and post-medication administration. IVP given by RN. Information reviewed with patientincluding reason for taking this medication, signs of allergic reaction and precautions. Verbalizesunderstanding. --10:12/21/19 Yessica Peña R.N.10:12/21/2019 PROTONIX (Pantoprazole Sodium) IVP 40 mg given [...] labeled in the presence of the patient. --10:12/21/19 Yessica Peña R.N.Care transferred and report given (Eleanor). Patient not ready for evaluation. --10:12/21/19 Yessica Peña R.N.late entry - 10:00 12/21/19. ( resting comfortable at present). --10:23 12/21/19 Yessica Peña R.N.10:12/21/19. BP: 136/89. MAP: 104. HR: 79. RR: 18. O2 saturation: 99%. --10:23 12/21/19 Yessica Peña R.N.Patient transported to [facility] by wheelchair with IV, mask and director of radiology. --10:24 12/21/19 Eleanor Mayfield R.N.Patient returned from [facility] by wheelchair with IV, mask and director of radiology. --10:37 12/21/19 Eleanor Mayfield R.N.11:16 12/21/2019 Site #1 rem lawrence upon discharge. Catheter intact. Bandaid applied. --11:18 12/21/19Eleanor Mayfield R.N.11:16 12/21/2019 IV Fluids IV NS via IV site #1 Discontinued: bag #1 discontinued upon discharge. Totalamount infused: 708 ml mL. IV patency established. IV site checked: no pain, redness, or swelling. IV 4 Clinical Report - Nurses [facility] Emergency Department [address] [place] [address] Phone #: [phone] iah- [phone] 12/21/2019 09:09 Patient: AUGIE KAYE Sex: F : 1990 Age: 29y flushed thoroughly. --11:18 12/21/19 Eleanor Mayfield R.N.DISPOSITION / DISCHARGE Departure time: 11:12/21/2019. Condition at departure: improved. No learning barriers present. Discharge instructions provided and reviewed with the patient. Reviewed warnings. Reviewed medication(s) side effects, precautions, dosing and course information. Prescription(s) sent electronically to pharmacy (Protonix, Zofran). Reviewed referral to a primary care physician for followup. Patient verbalized understanding. Written instructions provided in [place]. The patient was discharged by the physician. She was discharged home and unaccompanied at time of discharge. She left ambulatory and via private vehicle. Patient driving. --11:19 12/21/19 Eleanor Mayfield R.N. 11:20 12/21/19. BP: 140/90. HR: 75. RR: 18. O2 saturation: 100%. Temp: 99.3 F. Pain level now 05/26. --11:21 12/21/19 [facility] Tech[facility] ER Tech1.Locked/Released at 12/21/2019 11:22 by Eleanor Mayfield R.N. Name Value Range Interpretation Code Description Data Randa rce(s) Supporting Document(s) ID Date Data Source [id number] 12/21/2019 09:10:00 AM EST [facility] 1 Clinical Report - Physicians/Mid Levels [facility] Emergency Department [address] [place] [address] Phone #: ext- [phone] 12/21/2019 09:09 Patient: [...] Allergies: None. 2 Clinical Report - Physicians/Mid [facility] Emergency Department [address] [place] [address] Phone #: ext- [phone] 12/21/2019 09:09 Patient: [...] 2.5) 3 Clinical Report - Physicians/Mid Levels [facility] Emergency Department [address] [place] [address] Phone #: ext- [phone] 12/21/2019 09:09 [id number] Sex: F : 1990 Age: 29y %IG [...] Male GFR Interprentation 20-49 yrs >60 mL/min Asbipf20-19 yrs >56 mL/min Normal 60-69 yrs >49 mL/min Normal 70-79yrs>42 mL/min Normal 80 and above >35 mL/min Normal Female GFRInterpretation 20-39 yrs >60 mL/min Normal 40-49 yrs >58 mL/minNormal 50-59 yrs >51 mL/min Normal 60-69 yrs >45 mL/min Ekcqbd90-66 yrs >39 mL/min Normal 80 and above >32 mL/min NormalLipase: (AME: 12/21/2019 10:04) ( [facility] 12/21/2019 10:36) Final results Test Result Flag Units (Reference) LIPASE 16 U/L (13 - 60)Urinalysis: (AME: 12/21/2019 10:04) ( [facility] 12/21/2019 10:18) Final results Test Result Flag Units (Reference) URINALYSIS URINALYSIS SOURCE R COLOR yellow (NORMAL: Yello CLARITY Clear (NORMAL: Clear SPEC GRAVITY 1.015 (1.001 - 1.030 4 Clinical Report - Physicians/Mid Levels [facility] Emergency Department [address] [place] [address] Phone #: ext- [phone] 12/21/2019 09:09 Patient: [...] NEGATIVE (NORMAL: NEGAT { KIT LOT # [id number] ){ KIT EXP DATE 11.21.20 ){ PROCEDURAL [...] and agrees; pt has GI MD in [place] and will f/u w him for upper [...] gastroenteritis. 5 Clinical Report - Physicians/Mid Levels [facility] Emergency Department [address] [place] [address] Phone #: ext- [phone] 12/21/2019 09:09 ------ Patient: AUGIE KAYE [facility]#: [id number] Sex: F : 1990 Age: 29yINSTRUCTIONS Drink [...] Dispense 30 tablet. Refills: 1. Substitution permitted. [facility] [address] ; [place] [address]. . Zofran 4 mg tablet Take 1 tablet four times a day as needed for 4 days -- Dispense 16 tablet. Refills: 0. Substitution permitted. [facility] [address] ; [place] [address]. FaxNumber: . Follow-up: Return to the emergency department as needed. Follow up with your healthcare provider in three days even if well. Call for an appointment. Reason for referral: evaluation and treatment. Summary of care provided to patient via paper. Follow up with a bag machine set up operator in five days even if well. Call [...] 12/21/2019 11:25) 6Clinical Report - Physicians/Mid Levels [facility] Emergency Department [address] [place] [address] Phone #: ext- [phone] 12/21/2019 09:09 Patient: AUGIE KAYE Sex: F : 1990 Age: 29y Name Value Range Interpretation Code Description Data Randa rce(s) Supporting Document(s) ID Date Data Source [id number] 12/21/2019 10:59:00 AM EST [facility] Name Value Range Interpretation Code Description Data Randa rce(s) Supporting Document(s) HCG SERUM QUAL NEGATIVE NORMAL: NEGATIVE [facility] HCG SERUM QL REENTER NEGATIVE NORMAL: NEGATIVE [facility] { KIT LOT # [id number] ){ KIT EXP DATE 11.21.20 ){ PROCEDURAL CONTROL VALID ) ID Date Data Source [id number] 12/21/2019 10:37:00 AM EST [facility] Name Value Range Interpretation Code Description Data Randa rce(s) Supporting Document(s) COMPREHENSIVE METABOLIC PANEL [facility] COMPREHENSIVE METABOLIC PANEL Sodium [Moles/volume] in Serum or Plasma 135 mEq/L 134 - 153 [facility] Potassium [Moles/volume] in Serum or Plasma 4.2 mEq/L 3.6 - 5.0 [facility] Chloride [Moles/volume] in Serum or Plasma 102 mEq/L 98 - 107 [facility] Carbon dioxide, total [Moles/volume] in Serum or Plasma 28 MEQ/L 22 - 30 [facility] Glucose [Mass/volume] in Serum or Plasma 89 MG/DL 65 - 110 [facility] BUN 6 MG/DL 7 - 21 L [facility] Creatinine [Mass/volume] in Serum or Plasma 0.6 MG/DL 0.7 - 1.5 L [facility] BUN/CREAT 10 8 - 27 [facility] Protein [Mass/volume] in Serum or Plasma 7.3 G/DL 6.3 - 8.2 [facility] Albumin [Mass/volume] in Serum or Plasma 4.2 G/DL 3.9 - 5.0 [facility] Globulin [Mass/volume] in Serum by calculation 3.1 GM/DL 2.4 - 3.2 [facility] A/G RATIO 1.4 0.8 - 2.0 [facility] Calcium [Mass/volume] in Serum or Plasma 9.4 MG/DL 8.4 - 10.2 [facility] Bilirubin.total [Mass/volume] in Serum or Plasma 0.8 MG/DL 0.2 - 1.3 [facility] Alkaline phosphatase [Enzymatic activity/volume] in Serum or Plasma 80 U/L 38 - 126 [facility] Aspartate aminotransferase [Enzymatic activity/volume] in Serum or Plasma 18 U/L 5 - 40 [facility] Alanine aminotransferase [Enzymatic activity/volume] in Seru m or Plasma 18 U/L 7 - 56 [facility] Anion gap 3 in Serum or Plasma 5.0 mmol/L 8.0 - 16.0 L [facility] AGE 29 yrs [facility] NON-AA GFR >60 mL/min [facility] ital AFR AMER GFR >60 mL/min [facility] Male GFR In terprentation 20-49 [...] >32 mL/min Normal ID Date Data Source [id number] 12/21/2019 10:36:00 AM EST [facility] Name Value Range Interpretation Code Description Data Randa rce(s) Supporting Document(s) CBC W/AUTOMATED DIFF [facility] COMPLETE BLOOD COUNT Leukocytes [#/volume] in Blood by Automated count 10.6 10^3/uL 4.2 - 11.0 [facility] Erythrocytes [#/volume] in Blood by Automated count 4.34 10^6/uL 4. 20 - 5.40 [facility] Hemoglobin [Mass/volume] in Blood 12.7 g/dL 12.0 - 16.0 [facility] Hematocrit [Volume Fraction] of Blood by Automated count 37.8 % 3 7.0 - 47.0 [facility] Erythrocyte mean corpuscular volume [Entitic volume] by Auto mated count 87.1 fL 81.0 - 101 [facility] Erythrocyte mean corpuscular hemoglobin [Entitic mass] by Automated count 29.3 pg 27.0 - 34.0 [facility] Erythrocyte mean corpuscular hemoglobin concentration [Mass/volume] by Automated count 33.6 g/dL 31.0 - 36.0 [facility] Erythrocyte distribution width [Ratio] by Automated count 14.0 % 11.5 - 14.5 [facility] Platelets [#/volume] in Blood by Automated count 292 10^3/uL 150 - 45 0 [facility] Platelet mean volume [Entitic volume] in Blood by Automated count 10.6 fL 7.4 - 10.4 H [facility] Neutrophils/100 leukocytes in Blood by Automated count 82.3 % 37. 0 - 80.0 H [facility] Lymphocytes/100 leukocytes in Blood by Manual count 10.3 % 25.0 - 40.0 L [facility] Monocytes/100 leukocytes in Blood by Automated count 6.1 % 3.0 - 8.0 [facility] Eosinophils/100 leukocytes in Blood by Automated count 0.3 % 0.0 - 7.0 [facility] Basophils/100 leukocytes in Blood by Automated count 0.7 % 0.0 - 2.5 [facility] %IG 0.3 % 0.0 - 0.0 H [facility] al %NRBC 0.0 % 0.0 - 0.0 [facility] al Neutrophils [#/volume] in Blood by Automated count 8.70 10^3/uL 2.00 - 6.90 H [facility] Lymphocytes [#/volume] in Blood by Automated count 1.09 10^3/uL 0.60 - 3.40 [facility] Monocytes [#/volume] in Blood by Automated count 0.64 10^3/uL 0.00 - 0.90 [facility] Eosinophils [#/volume] in Blood by Automated count 0.03 10^3/uL 0.00 - 0.70 [facility] Basophils [#/volume] in Blood by Automated count 0.07 10^3/uL 0.00 - 0.20 [facility] #IG 0.03 10^3/uL 0.00 - 0.10 [facility] #NRBC 0.00 10^3/uL 0.00 - 0.00 [facility] ospital MANUAL DIFF NOT INDICATED [facility] RBC MORPH NOT INDICATED [facility] ID Date Data Source [id number] 12/21/2019 10:36:[address] [facility] Name Value Range Interpretation Code Description Data Randa rce(s) Supporting Document(s) Lipase [Enzymatic activity/volume] in Serum or Plasma 16 U/L 13 - 60 [facility] ID Date Data Source [id number] 12/21/2019 10:17:[address] [facility] Name Value Range Interpretation Code Description Data Randa rce(s) Supporting Document(s) [facility] COLOR yellow NORMAL: Yellow [facility] ospital CLARITY Clear NORMAL: Clear [facility] Specific gravity of Urine by Test strip 1.015 1.001 - 1.030 [facility] pH 8 5 - 9 [facility] Glucose [Mass/volume] in Urine by Test strip NORM NORMAL: Negat reina [facility] Bilirubin.total [Presence] in Urine by Test strip NEG NORMAL: Negative [facility] Ketones [Presence] in Urine by Test strip NEG NORMAL: Negative [facility] Protein [Mass/volume] in Urine by Test strip NEG NORMAL: Negat reina [facility] Nitrite [Presence] in Urine by Test strip NEG NORMAL: Negative [facility] BLOOD NEG NORMAL: Negative [facility] Leukocyte esterase [Presence] in Urine by Test strip NEG MAYRA L: Negative [facility] Urobilinogen [Mass/volume] in Urine by Test strip NOR less meena n 1.0 mg/dL [facility] MICROSCOPIC Not Indicate [facility] ID Date Data Source [id number] 11/14/2019 10:15:00 AM EDT [facility] Name Value Range Interpretation Code Description Data Randa rce(s) Supporting Document(s) White Blood Count 11.0 4.0-10.0 [facility] ([facility]) Red Blood Count 4.05 4.00-5.40 [facility] ([facility]) Platelets 281 172-450 [facility] Hematocrit 35.3 [facility] ([facility]) Hemoglobin 11.7 [facility] ([facility]) ID Date Data Source [id number] 11/14/2019 10:15:00 AM EDT [facility] Name Value Range Interpretation Code Description Data Randa rce(s) Supporting Document(s) Thyroxine (T4) free [Mass/volume] in Serum or Plasma 3.1 [facility] ([facility]) Triiodothyronine resin uptake (T3RU) in Serum or Plasma 37 [facility] ([facility]) Thyroxine (T4) [Mass/volume] in Serum or Plasma 8.4 [facility] ([facility]) Thyroid Stimulating Hormone 1.770 [place] [facility] ([facility]) ID Date Data Source [id number] 11/14/2019 10:15:00 AM EDT [facility] Name Value Range Interpretation Code Description Data Randa rce(s) Supporting Document(s) Troponin Laboratory test result [facility] ([facility]) ID Date Data Source [id number] 11/14/2019 10:15:00 AM EDT [facility] ([facility]) Name Value Range Interpretation Code Description Data Randa rce(s) Supporting Document(s) CPK-MB Laboratory test result [facility] ([facility]) Creatine kinase [Enzymatic activity/volume] in Serum or Plasma 85 [facility] ([facility]) ID Date Data Source [id number] 11/14/2019 10:15:00 AM EDT [facility] ([facility]) Name Value Range Interpretation Code Description Data Randa rce(s) Supporting Document(s) Glucose 108 70-100 [facility] Blood Urea Nitrogen 9 7-18 [facility] ([facility]) Creatinine 0.80 0.6-1.0 [facility] ([facility]) Sodium 137 136-145 [facility] Potassium 4.0 3.5-5.1 [facility] Calcium 9.2 8.2-9.6 [facility] Chloride 107 98-107 [facility] Carbon Dioxide 27 21-32 [facility] ([facility]) Glomerular filtration rate/1.73 sq M.pre dicted [Volume Rate/Area] in Serum or Plasma by Creatinine-based formula (MDRD) Laboratory test result [facility] ([facility]) Procedure Social History Code Duration Value Status Description Data Source(s ) Smoking 11/18/2020 03:02:00 PM EDT Denies Ever Smoked complete d Denies Ever Smoked [facility] Smoking 10/08/2020 12:00:00 AM EDT Patient has never smoked co mpleted Patient has never smoked [facility] ([facility]) Smoking 09/28/2020 12:00:00 AM EDT Patient has never smoked co mpleted Patient has never smoked [facility] ([facility]) Smoking 02/27/2020 12:00:00 AM EST Never Smoked Cigarettes com pleted Never Smoked Cigarettes [facility] ([facility], ) Vital Signs ID Date Data Source UNK Name Value Range Interpretation Code Description Data Source(s) Systolic blood pressure 132 mm[Hg] Normal (applies t o non-numeric results) 132 mm[Hg] [facility] Diastolic blood pressure 73 mm[Hg] Normal (applies to non-numeric results) 73 mm[Hg] [facility] Body mass index (BMI) [Ratio] 40.7 kg/m2 No rmal (applies to non-numeric results) 40.7 kg/m2 [facility] Heart rate 81 min Normal (applies to non-numeric resul ts) 81 min [facility] Deprecated Oxygen saturation in Capillary blood by Oximetry 100 % Normal (applies to non-numeric results) 100 % [facility] Respiratory rate 14 min Normal (applies to non-numeric results) 14 min [facility] Body height 66 [in_i] 66 [in_i] [facility] ([facility]) 5'6" Systolic blood pressure 145 mm[Hg] 145 mm[Hg] M [facility]ENT ([facility]) Diastolic blood pressure 90 mm[Hg] 90 mm[Hg] [facility] ([facility]) Heart rate 84 /min 84 /min [facility] ([facility]) Body mass index (BMI) [Ratio] 43.6 kg/m2 43.6 k g/m2 [facility] ([facility]) Respiratory rate 18 /min 18 /min [facility] ( [facility]) Oxygen saturation in Arterial blood by Pulse oximetry 98 % 98 % [facility]) Body temperature 97.8 [degF] 97.8 [degF] [facility] ([facility]) Body weight 270.00 [lb_av] 270.00 [lb_av] [facility] T ([facility], [facility]) Body weight 274.00 [lb_av] 274.00 [lb_av] [facility] T ([facility]) Body height 67 [in_i] 67 [in_i] [facility]) 5'7" Body mass index (BMI) [Ratio] 42.9 kg/m2 42.9 k g/m2 [facility] ([facility]) Systolic blood pressure--sitting 124 mm[Hg] 124 mm[Hg] [facility] ([facility]) Ra, large cuff Diastolic blood pressure--sitting 76 mm[Hg] 76 mm[Hg] [facility] ([facility]) Ra, large cuff Oxygen saturation in Arterial blood by Pulse oximetry 99 % 99 % [facility] ([facility]) Heart rate 92 /min 92 /min [facility] ([facility]) Respiratory rate 17 /min 17 /min [facility] ( [facility]) Body temperature 98.4 [degF] 98.4 [degF] [facility] ([facility]) Body height 67 [in_i] 67 [in_i] [facility] ([facility], [facility]) 5'7" Body mass index (BMI) [Ratio] 42.3 kg/m2 42.3 k g/m2 [facility] ([facility]) Body weight 270.00 [lb_av] 270.00 [lb_av] [facility] T ([facility], [facility]) Systolic blood pressure 140 mm[Hg] 140 mm[Hg] M EDENT ([facility], [facility]) Diastolic blood pressure 89 mm[Hg] 89 mm[Hg] [facility] ([facility]) Respiratory rate 18 /min 18 /min [facility] ( [facility]) Systolic blood pressure 132 mm[Hg] 132 mm[Hg] M EDENT ([facility], [facility]) Diastolic blood pressure 88 mm[Hg] 88 mm[Hg] [facility] ([facility]) Heart rate 88 /min 88 /min [facility] ([facility]) Body temperature 98.0 [degF] 98.0 [degF] [facility] ([facility]) Body weight 270.00 [lb_av] 270.00 [lb_av] [facility] T ([facility], [facility]) Oxygen saturation in Arterial blood by Pulse oximetry 98 % 98 % [facility] ([facility]) Body height 67 [in_i] 67 [in_i] [facility] ([facility]) 5'7" Body mass index (BMI) [Ratio] 42.3 kg/m2 42.3 k g/m2 [facility] ([facility]) Body weight 285.00 [lb_av] 285.00 [lb_av] [facility] T ([facility]) Body height 67 [in_i] 67 [in_i] [facility] ([facility]) 5'7" Body mass index (BMI) [Ratio] 44.6 kg/m2 44.6 k g/m2 [facility] ([facility]) Heart rate 78 /min 78 /min [facility] ([facility]) Systolic blood pressure--sitting 134 mm[Hg] 134 mm[Hg] [facility] ([facility]) Omron, large cuff/Ra Diastolic blood pressure--sitting 93 mm[Hg] 93 mm[Hg] [facility] ([facility]) Omron, large cuff/Ra Body temperature 97.2 [degF] 97.2 [degF] [facility] ([facility]) Diastolic blood pressure 81 mm[Hg] 81 mm[Hg] [facility] ([facility]) Body weight 288.00 [lb_av] [...] kg 130.637 kg [facility]) Systolic blood pressure 148 mm[Hg] 148 mm[Hg] M EDENT ([facility]) Heart rate 101 /min 101 /min [facility] ([facility]) Body temperature 98.8 [degF] 98.8 [degF] [facility] ([facility]) Body weight 270.00 [lb_av] 270.00 [lb_av] [facility] T ([facility], [facility]) Body mass index (BMI) [Ratio] 42.3 kg/m2 42.3 k g/m2 [facility] ([facility]) Diastolic blood pressure 94 mm[Hg] 94 mm[Hg] [facility] ([facility], [facility]) Respiratory rate 16 /min 16 /min [facility] ( [facility]) Body height 67 [in_i] 67 [in_i] [facility] ([facility]) 5'7" Oxygen saturation in Arterial blood by Pulse oximetry 99 % 99 % [facility] ([facility]) Body height 67 [in_i] 67 [in_i] [facility] ([facility], ) 5'7" [place] body weight 135 [lb_av] 135 [lb_av] [facility] T ([facility], ) ID Date Data Source [id number] 12/14/2020 06:06:57 PM [facility] Name Value Range Interpretation Code Description Data Source(s) WEIGHT RECORDED 259.26 lb 259.26 lb [facility] Body height Measured 65.[address] [facility] WEIGHT RECORDED 260 lb 260 lb [facility] Body height Measured [address] [facility] ID Date Data Source [id number] 09/18/2020 10:09:52 AM [facility] Name Value Range Interpretation Code Description Data Source(s) WEIGHT RECORDED 270 lb 270 lb [facility] Body height Measured [address] [facility]
== END 2020-12-31 | disposition left against medical advice (07) ==
LOC: M ED 22:38
DX: Z53.21 Procedure and treatment not carried out due to patient leaving prior to being seen by health care provider (principal)

== ENCOUNTER → 2020-12-31 | Outpatient (CLI) | payer OTHER ==
[~2020-12-31] MED LIST changes: +METF500T13
[2020-12-31 16:17] LABS: HEMATOCRIT 36.8 % (36.0-47.0); HEMOGLOBIN 11.7 g/dl (12.0-15.5); MEAN CORPUSCULAR HEMOGLOBIN 28.1 pg (27.0-33.0); MEAN CORPUSCULAR HGB CONC 31.8 g/dl (32.0-36.5); MEAN CORPUSCULAR VOLUME 88.2 fl (80.0-96.0); PLATELET COUNT, AUTOMATED 307 10^3/uL (150-450); RED BLOOD COUNT 4.17 10^6/uL (4.00-5.40); WHITE BLOOD COUNT 10.4 10^3/uL (4.0-10.0)
[2020-12-31 17:01] LABS: BLOOD UREA NITROGEN 10 MG/DL (7-18); CARBON DIOXIDE LEVEL 28 MEQ/L (21-32); CHLORIDE LEVEL 105 MEQ/L (98-107); CHOLESTEROL LEVEL 236 MG/DL (<200); CHOLESTEROL RISK RATIO 3.189 (<5); CREATININE FOR GFR 0.84 MG/DL (0.55-1.30); GLOMERULAR FILTRATION RATE > 60.0 (>60); GLUCOSE, FASTING 95 MG/DL (70-100); HDL CHOLESTEROL 74 MG/DL (>40); LDL CHOLESTEROL 151 MG/DL (<100); NON-HDL-C 162 MG/DL; NT-PRO BNP 34 PG/ML (<125); POTASSIUM SERUM 4.3 MEQ/L (3.5-5.1); SODIUM LEVEL 138 MEQ/L (136-145); TRIGLYCERIDES LEVEL 56 MG/DL (<150)
== END ==
LOC: M WUC 11:04
PROVIDERS: ATTEND Internal Medicine Cardiovascular Disease
DX: R07.9 Chest pain, unspecified (principal); I50.9 Heart failure, unspecified; I48.0 Paroxysmal atrial fibrillation; I47.2 Ventricular tachycardia

== ENCOUNTER → 2021-02-06 | Outpatient (CLI) | payer OTHER ==
--- NOTE | 2021-02-06 13:30 | PFTRPT ---
Height: 66.00 Inches Weight: 270.00 Lbs BSA: 2.27 Diagnosis: R06.09 DATE: 02/06/2021 ORDERING PHYSICIAN: SHRUTHI PEREZ MD Pre and post bronchodilator studies have excellent technical quality. Difficulty with effort is noted. Forced vital capacity is normal. FEV1 is in proportion. Obstructive index is therefore normal. Expiratory limit of the flow-volume loop is reasonably normal. No significant bronchodilator response is identified. Total lung capacity is normal. Residual volume is in proportion. Diffusing capacity is normal. No hemoglobin available for correction. Airway resistance and conductance are normal. IMPRESSION: Normal study. MTDD
== END ==
LOC: M CARPUL 13:03
PROVIDERS: ATTEND Internal Medicine Cardiovascular Disease
DX: R06.09 Other forms of dyspnea (principal)

== ENCOUNTER → 2021-02-14 | Outpatient (CLI) | payer OTHER ==
[~2021-02-14] MED LIST changes: +E-Z-GAS II EFFERVESCENT PACKET (SODIUM BICARB./CITRIC ACID/SIMETHICONE) As Ordered ONE; +E-Z-HD 98% w/w 340GM SUSP BTL As Ordered ONE; +E-Z-PAQUE 96% w/w SUSP 176GM BTL As Ordered ONE
--- NOTE | 2021-02-14 16:56 | REP ---
INDICATION: ACID REFLUX, DIARRHEA, CRAMPING. COMPARISON: None. TECHNIQUE: The procedure was performed under the direct supervision of Dr. Barakat. The images were reviewed with Dr. Barakat. Liquid barium and gas producing crystals were given in the erect position as well as liquid barium in the prone oblique position in order to perform a double contrast upper GI examination. Additionally liquid barium was given at the end of the examination in order to perform a small bowel follow through. A combination od fluoroscopy, spot films and last image hold technology was utilized, 2.6 minutes of fluoro time was utilized for this procedure. FINDINGS: The presiding judge film shows no organomegaly or pathological masses. The intestinal gas pattern is non-specific. The oral and pharyngeal stages of deglutition are unremarkable. Esophageal transport is prompt and efficient and there is no esophagitis, stricture, mucosal ring or hiatal hernia. There is gastroesophageal reflux demonstrated to the level of the baldo. The stomach morales are normally outlined. The rugal folds are smooth and regular. There is no gastritis neoplasm or ulcer disease. The duodenal morales are normally outlined . The mucosal folds are smooth and regular. There is no duodenitis pancreatitis peptic ulcer disease or neoplasm. The visualized portion of the proximal small bowel appears normal in course and caliber. The barium column was followed through the small bowel to the level of the terminal ileum. Small bowel transit time is approximately 35 minutes. During fluoroscopy gentle palpation shows all loops are freely movable and pliable. There are no fixed or angulated loops. The small bowel mucosal pattern is normal in course and caliber. There is no transition to suggest a partial small-bowel obstruction. Spot filming of the terminal ileum shows it to be unremarkable. IMPRESSION: There is gastroesophageal reflux demonstrated to the level of the baldo. Otherwise, unremarkable double contrast upper GI and small bowel follow through examination. <Electronically signed by Karthik Danielle > 02/14/21 1652 <Electronically signed by Milton Barakat > 02/14/21 165
== END ==
LOC: M RAD 08:24
PROVIDERS: ATTEND Internal Medicine Gastroenterology
DX: K21.9 Gastro-esophageal reflux disease without esophagitis (principal); K58.9 Irritable bowel syndrome, unspecified

== ENCOUNTER 2021-03-23 21:25 | Emergency (ER) | payer OTHER ==
[~2021-03-23] VITALS: Ht 167.6 cm; Wt 118.2 kg
[~2021-03-23 21:25] MED LIST changes: -E-Z-GAS II EFFERVESCENT PACKET (SODIUM BICARB./CITRIC ACID/SIMETHICONE) As Ordered ONE; -E-Z-HD 98% w/w 340GM SUSP BTL As Ordered ONE; -E-Z-PAQUE 96% w/w SUSP 176GM BTL As Ordered ONE; +IBUP80TA PO; +OMEP-173 PO; -OMEP-218 PO
[2021-03-23 23:20] VITALS: BP 147/97
== END 2021-03-24 00:04 | disposition left against medical advice (07) ==
LOC: M ED 21:25
DX: Z53.21 Procedure and treatment not carried out due to patient leaving prior to being seen by health care provider (principal)

== ENCOUNTER → 2021-04-05 | Outpatient (CLI) | payer OTHER ==
[2021-04-08 14:08] LABS: ANTINUCLEAR ANTIBODIES DIRECT Negative (Negative); THYROID STIMULATING IMMUNOGLOB <0.10 IU/L (0.00-0.55); TSH RECEPTOR ASSAY <1.10 IU/L (0.00-1.75)
== END ==
LOC: M PLALAB 10:14
PROVIDERS: ATTEND Student in an Organized Health Care Education/Training Program
DX: L65.9 Nonscarring hair loss, unspecified (principal); E32.0 Persistent hyperplasia of thymus

== ENCOUNTER → 2021-04-05 | Outpatient (CLI) | payer OTHER | LOC: M LABSMTC 10:06 | PROVIDERS: ATTEND Anesthesiology | DX: Z01.818 Encounter for other preprocedural examination (principal); Z11.52 Encounter for screening for COVID-19 ==

== ENCOUNTER → 2021-04-16 | Outpatient (CLI) | payer OTHER | LOC: M PLALAB 10:48 | PROVIDERS: ATTEND Student in an Organized Health Care Education/Training Program | DX: E32.0 Persistent hyperplasia of thymus (principal) ==

== ENCOUNTER → 2021-04-16 | Outpatient (CLI) | payer OTHER ==
[~2021-04-16] MED LIST changes: +DICL75TA PO; +IBUP80TA; +PEPC10TA6 PO
[2021-04-16 15:31] LABS: BASO # 0.1 10^3/uL (0.0-0.2); BASO % 0.9 % (0.0-1.0); EOS # 0.1 10^3/uL (0.0-0.5); EOS % 1.1 % (0.0-3.0); HEMATOCRIT 38.9 % (36.0-47.0); HEMOGLOBIN 12.7 g/dl (12.0-15.5); LYMPH # 1.5 10^3/uL (1.5-5.0); LYMPH % 16.9 % (24.0-44.0); MEAN CORPUSCULAR HEMOGLOBIN 27.9 pg (27.0-33.0); MEAN CORPUSCULAR HGB CONC 32.6 g/dl (32.0-36.5); MEAN CORPUSCULAR VOLUME 85.5 fl (80.0-96.0); MONO # 0.6 10^3/uL (0.0-0.8); MONO % 7.2 % (2.0-8.0); NEUTROPHILS # 6.5 10^3/uL (1.5-8.5); NEUTROPHILS % 73.7 % (36.0-66.0); PLATELET COUNT, AUTOMATED 346 10^3/uL (150-450); RED BLOOD COUNT 4.55 10^6/uL (4.00-5.40); WHITE BLOOD COUNT 8.8 10^3/uL (4.0-10.0)
== END ==
LOC: M PLALAB 10:46
PROVIDERS: ATTEND Physician Assistant
DX: R59.0 Localized enlarged lymph nodes (principal)
CPT/HCPCS: 36415; 85025; G0463

== ENCOUNTER → 2021-04-18 | Outpatient (CLI) | payer OTHER ==
[~2021-04-18] MED LIST changes: -DICL75TA PO; -IBUP80TA; -PEPC10TA6 PO
== END ==
LOC: M PLALAB 08:54
PROVIDERS: ATTEND Student in an Organized Health Care Education/Training Program
DX: R79.82 Elevated C-reactive protein (CRP) (principal)

== ENCOUNTER 2021-04-21 13:54 | Emergency (ER) | payer OTHER ==
[~2021-04-21] VITALS: Ht 170.2 cm; Wt 129.9 kg
[2021-04-21] MEDS ORDERED: PANT40TA29 (14:09)
[2021-04-21] MEDS ORDERED: IBUP80TA (14:09)
[2021-04-21] MEDS ORDERED: PEPC10TA6 PO (14:09)
[2021-04-21 17:54] LABS: BASO # 0.1 10^3/uL (0.0-0.2); BASO % 0.4 % (0.0-1.0); EOS # 0.2 10^3/uL (0.0-0.5); EOS % 1.7 % (0.0-3.0); HEMATOCRIT 37.3 % (36.0-47.0); HEMOGLOBIN 12.2 g/dl (12.0-15.5); LYMPH # 2.2 10^3/uL (1.5-5.0); LYMPH % 18.3 % (24.0-44.0); MEAN CORPUSCULAR HGB CONC 32.7 g/dl (32.0-36.5); MEAN CORPUSCULAR VOLUME 85.7 fl (80.0-96.0); MONO # 0.7 10^3/uL (0.0-0.8); MONO % 5.9 % (2.0-8.0); NEUTROPHILS # 8.6 10^3/uL (1.5-8.5); NEUTROPHILS % 73.4 % (36.0-66.0); PLATELET COUNT, AUTOMATED 315 10^3/uL (150-450); RED BLOOD COUNT 4.35 10^6/uL (4.00-5.40); WHITE BLOOD COUNT 11.7 10^3/uL (4.0-10.0)
[2021-04-21 18:26] LABS: ALBUMIN 3.4 GM/DL (3.2-5.2); ALT/SGPT 21 U/L (12-78); BILIRUBIN,TOTAL 0.4 MG/DL (0.2-1.0); BLOOD UREA NITROGEN 10 MG/DL (7-18); CARBON DIOXIDE LEVEL 28 MEQ/L (21-32); CHLORIDE LEVEL 104 MEQ/L (98-107); CREATININE FOR GFR 0.77 MG/DL (0.55-1.30); GLOMERULAR FILTRATION RATE > 60.0 (>60); GLUCOSE, FASTING 82 MG/DL (70-100); MONO SCRN NEGATIVE (NEGATIVE); POTASSIUM SERUM 4.3 MEQ/L (3.5-5.1); SODIUM LEVEL 138 MEQ/L (136-145); TOTAL PROTEIN 7.3 GM/DL (6.4-8.2)
[2021-04-21 19:11] VITALS: BP 131/82
[2021-04-21] MEDS ORDERED: DICL75TA PO (19:18)
[2021-04-23 16:13] LABS: Lyme Disease IgG/IgM Antibodie <0.91 ISR (0.00-0.90); Lyme Disease IgM Ab Quantitati <0.80 index (0.00-0.79)
[2021-04-23 20:08] LABS: ANA (HEP2) Positive (.)
== END 2021-04-21 19:27 | disposition home or self-care (01) ==
LOC: M ED 13:54
DX: M25.512 Pain in left shoulder (principal); M54.2 Cervicalgia; J45.909 Unspecified asthma, uncomplicated; K21.9 Gastro-esophageal reflux disease without esophagitis; E28.2 Polycystic ovarian syndrome; Z79.899 Other long term (current) drug therapy

== ENCOUNTER → 2021-04-26 | Outpatient (CLI) | payer OTHER ==
[~2021-04-26] MED LIST changes: +DICL75TA PO; +IBUP80TA; +PEPC10TA6 PO
[2021-04-26 17:06] LABS: ALBUMIN 3.4 GM/DL (3.2-5.2); BILIRUBIN,DIRECT 0.1 MG/DL (0.0-0.2); BILIRUBIN,TOTAL 0.5 MG/DL (0.2-1.0); TOTAL PROTEIN 7.4 GM/DL (6.4-8.2)
== END ==
LOC: M PLALAB 12:25
PROVIDERS: ATTEND Student in an Organized Health Care Education/Training Program
DX: M62.81 Muscle weakness (generalized) (principal)

== ENCOUNTER → 2021-05-02 | Outpatient (CLI) | payer OTHER | LOC: M PLALAB 14:50 | PROVIDERS: ATTEND Student in an Organized Health Care Education/Training Program | DX: R76.8 Other specified abnormal immunological findings in serum (principal) ==

== ENCOUNTER 2021-05-23 22:04 | Emergency (ER) | payer OTHER ==
[~2021-05-23] VITALS: Ht 167.6 cm; Wt 127.3 kg
[2021-05-23 22:04] VITALS: BP 152/101
[2021-05-23] MEDS ORDERED: OMEP-173 (22:11)
== END 2021-05-23 22:30 | disposition left against medical advice (07) ==
LOC: M ED 22:04
DX: Z53.21 Procedure and treatment not carried out due to patient leaving prior to being seen by health care provider (principal)

== ENCOUNTER → 2021-05-31 | Outpatient (CLI) | payer OTHER ==
[~2021-05-31] MED LIST changes: +OMEP-173
== END ==
LOC: M RAD 10:27
PROVIDERS: ATTEND Student in an Organized Health Care Education/Training Program
DX: E32.0 Persistent hyperplasia of thymus (principal)

== ENCOUNTER 2021-06-08 23:00 | Emergency (ER) | payer OTHER ==
[~2021-06-08] VITALS: Ht 167.6 cm; Wt 127.3 kg
[2021-06-09 00:23] LABS: BASO # 0.1 10^3/uL (0.0-0.2); BASO % 0.6 % (0.0-1.0); EOS # 0.2 10^3/uL (0.0-0.5); EOS % 1.1 % (0.0-3.0); HEMATOCRIT 33.3 % (36.0-47.0); LYMPH # 2.1 10^3/uL (1.5-5.0); LYMPH % 13.8 % (24.0-44.0); MEAN CORPUSCULAR HEMOGLOBIN 28.9 pg (27.0-33.0); MEAN CORPUSCULAR VOLUME 87.6 fl (80.0-96.0); MONO % 6.8 % (2.0-8.0); NEUTROPHILS # 11.8 10^3/uL (1.5-8.5); NEUTROPHILS % 77.2 % (36.0-66.0); PLATELET COUNT, AUTOMATED 306 10^3/uL (150-450); WHITE BLOOD COUNT 15.2 10^3/uL (4.0-10.0)
[2021-06-09 00:50] LABS: BLOOD UREA NITROGEN 17 MG/DL (7-18); CALCIUM LEVEL 8.6 MG/DL (8.5-10.1); CARBON DIOXIDE LEVEL 29 MEQ/L (21-32); CHLORIDE LEVEL 107 MEQ/L (98-107); CREATININE FOR GFR 0.74 MG/DL (0.55-1.30); FREE T4 0.94 NG/DL (0.76-1.46); GLOMERULAR FILTRATION RATE > 60.0 (>60); GLUCOSE, FASTING 98 MG/DL (70-100); POTASSIUM SERUM 4.5 MEQ/L (3.5-5.1); SODIUM LEVEL 139 MEQ/L (136-145); URIC ACID 3.2 MG/DL (2.6-6.0)
[2021-06-09 02:43] VITALS: BP 118/70
== END 2021-06-09 02:46 | disposition home or self-care (01) ==
LOC: M ED 23:00 → EDBD 23:00 → M ED 06-09 02:46
DX: F41.9 Anxiety disorder, unspecified (principal); R00.2 Palpitations; R94.31 Abnormal electrocardiogram [ECG] [EKG]; J45.909 Unspecified asthma, uncomplicated; Z79.899 Other long term (current) drug therapy